=== PATIENT | male | born 1955 | race Caucasian/White ===

== ENCOUNTER 2017-03-12 22:58 | Inpatient (IN) | payer OTHER, MEDICARE ==
[2017-03-13] MEDS ORDERED: INSULIN REGULAR 100 UNIT in SODIUM CHLORIDE 0.9% 100 ML IV ONE (00:24)
[2017-03-13 00:25] LABS: Glucose,Whole Blood 488 mg/dL (75-99)
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
[2017-03-13] MEDS: SODIUM CHLORIDE 0.9% 1,000 ML IV SCH ×2 (01:01→10:46)
[2017-03-13 01:17] LABS: Potassium 5.1 mmol/L (3.5-5.1)
[2017-03-13 02:18] LABS: Glucose,Whole Blood 481 mg/dL (75-99)
[2017-03-13] MEDS ORDERED: ONDANSETRON 4 MG/2 ML VIAL IVP STA ×2 (02:36→03:17)
[2017-03-13 03:12] VITALS: BMI 19.8
[2017-03-13 03:35] LABS: Glucose,Whole Blood 440 mg/dL (75-99)
[2017-03-13 04:00] LABS: Magnesium 1.7 mg/dL (1.6-2.3); Phosphorus 4.3 mg/dL (2.5-4.5); Potassium 4.6 mmol/L (3.5-5.1)
[2017-03-13 04:34] LABS: Glucose,Whole Blood 381 mg/dL (75-99)
[2017-03-13 05:29] LABS: Glucose,Whole Blood 317 mg/dL (75-99)
[2017-03-13 06:11] LABS: Glucose,Whole Blood 287 mg/dL (75-99)
[2017-03-13 06:20] LABS: Anisocytosis Slight; Basophils % (A) 0 %; Eosinophils % (A) 0 %; HCT 45.1 % (39.0-53.0); HGB 12.8 gm/dL (13.0-17.5); Hypochromasia Marked; Lymphocytes # (A) 0.4 k/uL (1.0-4.8); Lymphocytes % (A) 5 %; MCH 27.3 pg (25.0-35.0); MCHC 28.4 g/dL (31.0-37.0); MCV 95.8 fL (80.0-100.0); Mean Platelet Volume 9.1; Monocytes # (A) 0.5 k/uL (0-1.0); Monocytes % (A) 6 %; Neutrophils % (A) 89 %; Platelet Count 147 k/uL (150-450); RBC 4.71 m/uL (4.30-5.90); RDW 16.1 % (11.5-15.5)
[2017-03-13] MEDS ORDERED: NITROGLYCERIN SL TABS 0.4 MG TAB SUBLINGUAL PRN (06:39)
[2017-03-13 07:20] LABS: Glucose,Whole Blood 271 mg/dL (75-99)
[2017-03-13 08:17] LABS: Glucose,Whole Blood 198 mg/dL (75-99)
[2017-03-13] MEDS: D5-0.45% NACL WITH KCL 20MEQ/L 1,000 ML IV SCH ×2 (08:38→15:39)
[2017-03-13] MEDS: CLOPIDOGREL 75 MG TAB PO SCH (08:40)
[2017-03-13] MEDS: METOPROLOL TARTRATE 25 MG TAB PO SCH (08:40)
[2017-03-13] MEDS: ASPIRIN 81 MG PO SCH (08:40)
[2017-03-13] MEDS: TACROLIMUS 1 MG CAP PO SCH ×2 (08:40→17:44)
--- NOTE | 2017-03-13 08:44 | XR ---
EXAMINATION TYPE: XR chest 1V portable DATE OF EXAM: 03/13/2017 COMPARISON: 03/12/2017 HISTORY: Difficulty in breathing TECHNIQUE: Single frontal view of the chest is obtained. FINDINGS: Left basilar linear consolidation noted. Chronic rib deformities are seen on the left. No pneumothorax or overt failure. No pleural effusion. IMPRESSION: Linear left basilar atelectasis noted. Infiltrate felt less likely correlate clinically.
[2017-03-13 08:58] LABS: Glucose,Whole Blood 177 mg/dL (75-99)
[2017-03-13] MEDS ORDERED: MYCOPHENOLATE SODIUM DR 180 MG TABLET.DR PO SCH (09:00)
[2017-03-13 09:08] LABS: Albumin 3.6 g/dL (3.5-5.0); Calcium 8.9 mg/dL (8.4-10.2); Phosphorus 3.1 mg/dL (2.5-4.5); Potassium 3.9 mmol/L (3.5-5.1); Total Bilirubin 0.4 mg/dL (0.2-1.3); Total Protein 5.5 g/dL (6.3-8.2)
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
[2017-03-13] MEDS: MYCOPHENOLATE SODIUM DR 180 MG TABLET.DR PO SCH ×2 (09:49→19:54)
[2017-03-13 10:09] LABS: Glucose,Whole Blood 132 mg/dL (75-99)
[2017-03-13] MEDS: cefTRIAXone IN SWFI 1,000 MG/10 ML SYRINGE IVP SCH (10:47)
[2017-03-13 11:12] LABS: Glucose,Whole Blood 103 mg/dL (75-99)
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
[2017-03-13 12:20] LABS: Glucose,Whole Blood 94 mg/dL (75-99)
[2017-03-13 12:37] LABS: Albumin 3.2 g/dL (3.5-5.0); Calcium 8.6 mg/dL (8.4-10.2); Potassium 3.9 mmol/L (3.5-5.1); Total Bilirubin 0.4 mg/dL (0.2-1.3); Total Protein 5.3 g/dL (6.3-8.2)
[2017-03-13 12:53] LABS: Glucose,Whole Blood 88 mg/dL (75-99)
[2017-03-13] MEDS: OSELTAMIVIR 75 MG CAP PO SCH ×2 (13:11→19:55)
[2017-03-13] MEDS: LEVOTHYROXINE 50 MCG TAB PO SCH (13:11)
[2017-03-13 13:14] LABS: Glucose,Whole Blood 107 mg/dL (75-99)
[2017-03-13 14:05] LABS: Glucose,Whole Blood 146 mg/dL (75-99)
[2017-03-13 15:17] LABS: Glucose,Whole Blood 180 mg/dL (75-99)
[2017-03-13 16:08] LABS: Glucose,Whole Blood 204 mg/dL (75-99)
[2017-03-13 16:37] LABS: Albumin 3.1 g/dL (3.5-5.0); Calcium 8.5 mg/dL (8.4-10.2); Potassium 4.5 mmol/L (3.5-5.1); Total Bilirubin 0.5 mg/dL (0.2-1.3); Total Protein 5.3 g/dL (6.3-8.2)
[2017-03-13 17:31] LABS: Glucose,Whole Blood 194 mg/dL (75-99)
[2017-03-13] MEDS: INSULIN ASPART 100 UNIT/ML 1 ML 10 ML VIAL SQ SCH ×3 (17:43→21:31)
[2017-03-13 17:44] LABS: Hemoglobin A1C 9.9 % (4.0-6.0)
--- NOTE | 2017-03-13 20:34 | HP ---
HISTORY AND PHYSICAL DATE OF ADMISSION: 03/13/2017. CHIEF COMPLAINTS: Nausea, vomiting, diarrhea and glucose of 767. HISTORY OF PRESENT ILLNESS: This 62-year-old gentleman with a past medical history of CVA, diabetes, hemodialyses, history of renal transplantation, history of hypertension, hyperlipidemia, history of myocardial infarction, history of anxiety, depression, being followed by Dr. Quispe in the outpatient setting was having nausea, vomiting, diarrhea for the past several days. The patient apparently was not taking insulin also and the blood sugar went up and the patient presented to [facility] with features of diabetic ketoacidosis. Blood sugar is elevated to 767, anion gap is 26. The patient subsequently referred to [facility] for further evaluation and treatment. There is no history of fever, rigors, no headache, loss of consciousness or seizures. The influenza A was positive from [place], creatinine was found to be 2.33. Dr. Villalobos and Dr. Cast are following the patient closely. The patient is starting on some IV insulin drip for DKA protocol. PAST MEDICAL HISTORY: History of chronic renal failure, history of hemodialysis, history of renal transplant, hyperlipidemia, history of diabetes type 2, history of CAD stent, history of depression. MEDICATIONS: Prior to admission: Home medications are: 1. Prograf 3 mg p.o. b.i.d. 2. Zoloft 100 mg q.h.s. 3. Prilosec 20 mg a.c. b.i.d. 4. Nitrostat 0.2 mg sublingual p.r.n. 5. 720 mg p.o. b.i.d. 6. Synthroid 50 mcg daily. 7. Levemir 20 units subcu b.i.d. 8. NovoLog 18 units subcu with breakfast and 3-4 units a.c. b.i.d. 9. Plavix 75 mg. 10.Lipitor 80 mg daily. 11.Aspirin 81 mg daily. ALLERGIES: None. FAMILY HISTORY: History of myocardial infarction and depression in the family. SOCIAL HISTORY: History of smoking. No history of alcohol intake. REVIEW OF SYSTEMS: ENT: No diminished vision. No diminished hearing. CARDIOVASCULAR: No angina or palpitations. RESPIRATORY: as mentioned earlier. GI no nausea. no dysuria. Central nervous system: As mentioned earlier. Allergy/Immunology: No asthma or hayfever. Musculoskeletal: As mentioned earlier. Hematology/Oncology: No history of anemia. Endocrine: Diabetes. Constitutional : As mentioned earlier. Dermatology: Negative. Rheumatology: Negative. Psychiatric : As mentioned earlier. PHYSICAL EXAMINATION: The patient is alert and oriented x3. Pulse 79, blood pressure 151/80, respiration 18, temperature 98.5, pulse ox 97% on room air. HEENT: Conjunctivae normal. NECK: No jugular venous distention. CARDIOVASCULAR : S1, S2 muffled. Respiratory: Breath sounds diminished in the bases. Scattered rhonchi and crackles. ABDOMEN: Soft, nontender. No mass palpable. Legs: No edema. No swelling. Central nervous system: Higher functions as mentioned earlier. Moves all four extremities. No focal deficits. Lymphatics: No lymph nodes palpable in the neck, axillae or groin. Skin no ulcer, rash or bleeding. LABS: WBC 9, hemoglobin 12.8, sodium 135, creatinine is 2.33. ASSESSMENT: 1. Acute diabetic ketoacidosis. 2. Acute nausea, vomiting, diarrhea, acute influenza A. 3. Acute on chronic renal failure with acute allograft dysfunction secondary to severe intravascular pleural effusion. 4. Chronic kidney disease stage 3. 5. History of renal allograft for diabetic nephropathy. 6. History of cerebrovascular accident/transient ischemic attack. 7. Gastroesophageal reflux disease. 8. Hypertension. 9. Hyperlipidemia. 10.History of coronary artery disease stent. 11.History of depression. 12.History of nicotine dependence continued ongoing. RECOMMENDATIONS AND DISCUSSION: This 62-year-old gentleman who presented with multiple complex medical issues. We will monitor the patient closely. Continue the current medications, continue symptomatic treatment. Otherwise, at this time, I recommend continue with DKA protocol, IV fluids cautiously. Otherwise repeat labs. Resume the home medications. Psychiatric evaluation. Resume the home medications and guarded prognosis because of multiple complex medical issues. Further recommendations to follow. MMODL / IJN: [id number] / YUNG
[2017-03-13 20:52] LABS: Glucose,Whole Blood 139 mg/dL (75-99)
[2017-03-13] MEDS ORDERED: ATORVASTATIN 80 MG TAB PO SCH (21:00)
[2017-03-13] MEDS ORDERED: SERTRALINE 100 MG TAB PO SCH (21:00)
[2017-03-13] MEDS: INSULIN DETEMIR 100 UNIT/ML 10 ML VIAL SQ SCH (21:31)
[2017-03-13 21:56] LABS: Appearance,Urine Turbid (Clear); Bacteria,Urine Moderate /hpf; Bilirubin,Urine Negative (Negative); Blood,Urine Moderate (Negative); Color,Urine Yellow; Glucose,Urine (UA) 4+ (Negative); Ketones,Urine Trace (Negative); Leukocyte Esterase,Urine Large (Negative); Nitrite,Urine Negative (Negative); Protein,Urine 1+ (Negative); Specific Gravity,Urine 1.011 (1.001-1.035); Urobilinogen,Urine <2.0 mg/dL (<2.0); WBC,Urine >182 /hpf (0-5)
[2017-03-13 22:14] LABS: Albumin 3.3 g/dL (3.5-5.0); Calcium 8.7 mg/dL (8.4-10.2); Potassium 4.1 mmol/L (3.5-5.1); Total Bilirubin 0.4 mg/dL (0.2-1.3); Total Protein 5.4 g/dL (6.3-8.2)
[2017-03-14 03:43] LABS: Glucose,Whole Blood 115 mg/dL (75-99)
[2017-03-14 06:12] LABS: Glucose,Whole Blood 68 mg/dL (75-99)
[2017-03-14 06:18] LABS: Anisocytosis Slight; Basophils % (A) 0 %; Eosinophils % (A) 0 %; HCT 42.8 % (39.0-53.0); HGB 12.9 gm/dL (13.0-17.5); Hypochromasia Moderate; Lymphocytes # (A) 0.6 k/uL (1.0-4.8); Lymphocytes % (A) 7 %; MCH 27.9 pg (25.0-35.0); MCHC 30.2 g/dL (31.0-37.0); MCV 92.3 fL (80.0-100.0); Mean Platelet Volume 8.7; Monocytes # (A) 0.5 k/uL (0-1.0); Monocytes % (A) 5 %; Neutrophils # (A) 7.9 k/uL (1.3-7.7); Neutrophils % (A) 86 %; Platelet Count 159 k/uL (150-450); RBC 4.64 m/uL (4.30-5.90); RDW 16.2 % (11.5-15.5); WBC 9.1 k/uL (3.8-10.6)
[2017-03-14 06:27] LABS: Glucose,Whole Blood 69 mg/dL (75-99)
[2017-03-14] MEDS: TACROLIMUS 1 MG CAP PO SCH (06:32)
[2017-03-14] MEDS: LEVOTHYROXINE 50 MCG TAB PO SCH (06:32)
[2017-03-14 06:34] LABS: Calcium 8.7 mg/dL (8.4-10.2); Magnesium 1.5 mg/dL (1.6-2.3); Phosphorus 2.6 mg/dL (2.5-4.5); Potassium 3.8 mmol/L (3.5-5.1)
[2017-03-14] MEDS: INSULIN ASPART 100 UNIT/ML 1 ML 10 ML VIAL SQ SCH ×4 (06:35→15:20)
[2017-03-14 06:56] LABS: Glucose,Whole Blood 98 mg/dL (75-99)
[2017-03-14] MEDS ORDERED: PANTOPRAZOLE 40 MG TABLET PO SCH (07:30)
[2017-03-14] MEDS ORDERED: INSULIN ASPART 100 UNIT/ML 1 ML 10 ML VIAL SQ SCH ×2 (07:30→12:30)
[2017-03-14] MEDS: cefTRIAXone IN SWFI 1,000 MG/10 ML SYRINGE IVP SCH (08:44)
--- NOTE | 2017-03-14 08:44 | P.PN ---
Subjective Patient is seen in follow-up for acute kidney injury on chronic kidney disease. Patient has chronic kidney disease stage IIIB with creatinine near 2.3 in December 2016 done as an outpatient. Creatinine this admission was 2.9 and is down to 2.2 today. Patient presented with blood sugars of greater than 700 and was treated with DKA protocol. He is off insulin drip. He's on a full liquid diet now. Does admit to some vomiting and loose stools. Denies chest pain or shortness of breath. Admits to good urine output. He is noted to be influenza A virus positive. Patient received a donor renal allograft in November 2010 as injury and hospital and is currently maintained on Prograf as well as Myfortic. Vital signs are stable. General: The patient appeared well nourished and normally developed. HEENT: Head exam is unremarkable. Neck is without jugular venous distension. LUNGS: Lungs are clear to auscultation and percussion. Breath sounds decreased. HEART: Rate and Rhythm are regular. First and second heart sounds normal. No murmurs, rubs or gallops. ABDOMEN: Abdominal exam reveals normal bowel sounds. Non-tender and non- distended. No evidence of peritonitis. EXTREMITITES: No clubbing, cyanosis, or edema. Objective - Vital Signs Vital signs: Vital Signs Temp 97.5 F L 03/14/17 04:00 Pulse 86 03/14/17 04:00 Resp 16 03/14/17 04:00 BP 165/95 03/14/17 04:00 Pulse Ox 94 L 03/14/17 04:00 Intake & Output 03/13/17 03/14/17 03/14/17 18:59 06:59 18:59 Intake Total 1148.923 250 Output Total 425 Balance 1148.923 -175 Weight 60.9 kg 62.1 kg Intake: Intake, IV Titration 788.923 Amount D5-0.45% NaCl with KCl 750 20Meq/l 1,000 ml @ 150 mls/hr IV .Q6H40M [facility] Rx# :[id number] Insulin Regular 100 unit 38.923 In Sodium Chloride 0.9% 100 ml @ 3 UNIT/HR 3.03 mls/hr IV .Q24H ONE Rx#: [id number] Oral 360 250 Output: Urine 425 Other: Voiding Method Urinal Urinal # Voids 1 # Bowel Movements 1 - Labs CBC & Chem 7: 03/14/17 05:24 03/14/17 05:24 Labs: Abnormal Lab Results - Last 24 Hours (Table) 03/13/17 03/13/17 03/13/17 Range/Units 07:59 07:59 08:57 Hgb (13.0-17.5) gm/dL MCHC (31.0-37.0) g/dL RDW (11.5-15.5) % Neutrophils # (1.3-7.7) k/uL Lymphocytes # (1.0-4.8) k/uL Sodium (137-145) mmol/L Carbon Dioxide (22-30) mmol/L BUN 61 H (9-20) mg/dL Creatinine 2.59 H (0.66-1.25) mg/dL Glucose 211 H (74-99) mg/dL POC Glucose (mg/dL) 177 H (75-99) mg/dL Hemoglobin A1c 9.9 H (4.0-6.0) % Magnesium (1.6-2.3) mg/dL Total Protein 5.5 L (6.3-8.2) g/dL Albumin (3.5-5.0) g/dL Urine Protein (Negative) Urine Glucose (UA) (Negative) Urine Ketones (Negative) Urine Blood (Negative) Ur Leukocyte Esterase (Negative) Urine WBC (0-5) /hpf Urine WBC Clumps (None) /hpf Urine Bacteria (None) /hpf 03/13/17 03/13/17 03/13/17 Range/Units 09:56 11:06 12:05 Hgb (13.0-17.5) gm/dL MCHC (31.0-37.0) g/dL RDW (11.5-15.5) % Neutrophils # (1.3-7.7) k/uL Lymphocytes # (1.0-4.8) k/uL Sodium (137-145) mmol/L Carbon Dioxide (22-30) mmol/L BUN 59 H (9-20) mg/dL Creatinine 2.37 H (0.66-1.25) mg/dL Glucose 100 H (74-99) mg/dL POC Glucose (mg/dL) 132 H 103 H (75-99) mg/dL Hemoglobin A1c (4.0-6.0) % Magnesium (1.6-2.3) mg/dL Total Protein 5.3 L (6.3-8.2) g/dL Albumin 3.2 L (3.5-5.0) g/dL Urine Protein (Negative) Urine Glucose (UA) (Negative) Urine Ketones (Negative) Urine Blood (Negative) Ur Leukocyte Esterase (Negative) Urine WBC (0-5) /hpf Urine WBC Clumps (None) /hpf Urine Bacteria (None) /hpf 03/13/17 03/13/17 03/13/17 Range/Units 13:12 13:53 15:04 Hgb (13.0-17.5) gm/dL MCHC (31.0-37.0) g/dL RDW (11.5-15.5) % Neutrophils # (1.3-7.7) k/uL Lymphocytes # (1.0-4.8) k/uL Sodium (137-145) mmol/L Carbon Dioxide (22-30) mmol/L BUN (9-20) mg/dL Creatinine (0.66-1.25) mg/dL Glucose (74-99) mg/dL POC Glucose (mg/dL) 107 H 146 H 180 H (75-99) mg/dL Hemoglobin A1c (4.0-6.0) % Magnesium (1.6-2.3) mg/dL Total Protein (6.3-8.2) g/dL Albumin (3.5-5.0) g/dL Urine Protein (Negative) Urine Glucose (UA) (Negative) Urine Ketones (Negative) Urine Blood (Negative) Ur Leukocyte Esterase (Negative) Urine WBC (0-5) /hpf Urine WBC Clumps (None) /hpf Urine Bacteria (None) /hpf 03/13/17 03/13/17 03/13/17 Range/Units 16:01 16:05 17:28 Hgb (13.0-17.5) gm/dL MCHC (31.0-37.0) g/dL RDW (11.5-15.5) % Neutrophils # (1.3-7.7) k/uL Lymphocytes # (1.0-4.8) k/uL Sodium 135 L (137-145) mmol/L Carbon Dioxide (22-30) mmol/L BUN 55 H (9-20) mg/dL Creatinine 2.33 H (0.66-1.25) mg/dL Glucose 203 H (74-99) mg/dL POC Glucose (mg/dL) 204 H 194 H (75-99) mg/dL Hemoglobin A1c (4.0-6.0) % Magnesium (1.6-2.3) mg/dL Total Protein 5.3 L (6.3-8.2) g/dL Albumin 3.1 L (3.5-5.0) g/dL Urine Protein (Negative) Urine Glucose (UA) (Negative) Urine Ketones (Negative) Urine Blood (Negative) Ur Leukocyte Esterase (Negative) Urine WBC (0-5) /hpf Urine WBC Clumps (None) /hpf Urine Bacteria (None) /hpf 03/13/17 03/13/17 03/13/17 Range/Units 20:30 20:40 21:32 Hgb (13.0-17.5) gm/dL MCHC (31.0-37.0) g/dL RDW (11.5-15.5) % Neutrophils # (1.3-7.7) k/uL Lymphocytes # (1.0-4.8) k/uL Sodium 136 L (137-145) mmol/L Carbon Dioxide 21 L (22-30) mmol/L BUN 51 H (9-20) mg/dL Creatinine 2.30 H (0.66-1.25) mg/dL Glucose 150 H (74-99) mg/dL POC Glucose (mg/dL) 139 H (75-99) mg/dL Hemoglobin A1c (4.0-6.0) % Magnesium (1.6-2.3) mg/dL Total Protein 5.4 L (6.3-8.2) g/dL Albumin 3.3 L (3.5-5.0) g/dL Urine Protein 1+ H (Negative) Urine Glucose (UA) 4+ H (Negative) Urine Ketones Trace H (Negative) Urine Blood Moderate H (Negative) Ur Leukocyte Esterase Large H (Negative) Urine WBC >182 H (0-5) /hpf Urine WBC Clumps Many H (None) /hpf Urine Bacteria Moderate H (None) /hpf 01/24/18 01/24/18 01/24/18 Range/Units 01:35 05:24 05:24 Hgb 12.9 L (13.0-17.5) gm/dL MCHC 30.2 L (31.0-37.0) g/dL RDW 16.2 H (11.5-15.5) % Neutrophils # 7.9 H (1.3-7.7) k/uL Lymphocytes # 0.6 L (1.0-4.8) k/uL Sodium (137-145) mmol/L Carbon Dioxide (22-30) mmol/L BUN 44 H (9-20) mg/dL Creatinine 2.20 H (0.66-1.25) mg/dL Glucose (74-99) mg/dL POC Glucose (mg/dL) 115 H (75-99) mg/dL Hemoglobin A1c (4.0-6.0) % Magnesium 1.5 L (1.6-2.3) mg/dL Total Protein (6.3-8.2) g/dL Albumin (3.5-5.0) g/dL Urine Protein (Negative) Urine Glucose (UA) (Negative) Urine Ketones (Negative) Urine Blood (Negative) Ur Leukocyte Esterase (Negative) Urine WBC (0-5) /hpf Urine WBC Clumps (None) /hpf Urine Bacteria (None) /hpf 03/14/17 03/14/17 Range/Units 06:07 06:25 Hgb (13.0-17.5) gm/dL MCHC (31.0-37.0) g/dL RDW (11.5-15.5) % Neutrophils # (1.3-7.7) k/uL Lymphocytes # (1.0-4.8) k/uL Sodium (137-145) mmol/L Carbon Dioxide (22-30) mmol/L BUN (9-20) mg/dL Creatinine (0.66-1.25) mg/dL Glucose (74-99) mg/dL POC Glucose (mg/dL) 68 L 69 L (75-99) mg/dL Hemoglobin A1c (4.0-6.0) % Magnesium (1.6-2.3) mg/dL Total Protein (6.3-8.2) g/dL Albumin (3.5-5.0) g/dL Urine Protein (Negative) Urine Glucose (UA) (Negative) Urine Ketones (Negative) Urine Blood (Negative) Ur Leukocyte Esterase (Negative) Urine WBC (0-5) /hpf Urine WBC Clumps (None) /hpf Urine Bacteria (None) /hpf Assessment and Plan Plan: Assessment: #1. Acute allograft dysfunction mostly prerenal due to severe intravascular volume depletion from DKA as well as vomiting and diarrhea. Improved with IV hydration. Creatinine was 2.9 on admission and is down to 2.2 today. #2. 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 #3. Status post donor renal allograft in November 2010 at [facility] due to diabetic kidney disease. #4. Diabetic ketoacidosis. #5. Hypertonic hyponatremia secondary to hyperglycemia. Improved. #6. Pyuria. Follow-up urine culture. Maintain on antibiotics. Plan: Start normal saline to be run at 50 mL an hour for maintenance fluids for now. Continue Prograf 2 mg twice daily and Myfortic 720 mg twice daily. Follow-up Prograf level. Check urine culture. Avoid nephrotoxic agents and hypotensive episodes. Repeat electrolytes in the morning. Encouraged oral intake.
[2017-03-14] MEDS: INSULIN DETEMIR 100 UNIT/ML 10 ML VIAL SQ SCH (08:45)
[2017-03-14] MEDS ORDERED: SODIUM CHLORIDE 0.9% 1,000 ML IV SCH (08:45)
[2017-03-14] MEDS: OSELTAMIVIR 75 MG CAP PO SCH (08:47)
[2017-03-14] MEDS: ASPIRIN 81 MG PO SCH (08:47)
[2017-03-14] MEDS: METOPROLOL TARTRATE 25 MG TAB PO SCH (08:47)
[2017-03-14] MEDS: CLOPIDOGREL 75 MG TAB PO SCH (08:47)
[2017-03-14] MEDS: MYCOPHENOLATE SODIUM DR 180 MG TABLET.DR PO SCH (08:47)
[2017-03-14 11:06] VITALS: BP 154/87; PULSE 73; RESP 16; TEMP 97.1
[2017-03-14 11:36] LABS: Glucose,Whole Blood 48 mg/dL (75-99)
[2017-03-14 11:36] LABS: Glucose,Whole Blood 53 mg/dL (75-99)
[2017-03-14 11:52] LABS: Glucose,Whole Blood 49 mg/dL (75-99)
[2017-03-14 12:27] LABS: Glucose,Whole Blood 88 mg/dL (75-99)
--- NOTE | 2017-03-14 15:09 | P.PN ---
<Bernice Bates - Last Filed: 03/14/17 15:02> Subjective Progress Note Date: 03/14/17 Principal diagnosis: Diabetic ketoacidosis suspect triggered by influenza A 62-year-old male patient, diabetic since the age of 31 maintained on Levemir insulin 20 units twice a day along with Humalog based on a scale also known to have a kidney transplantation, and allograft transplant that was done at [facility] in 2010 with subsequent chronic renal failure, who is maintained on immunosuppressive agents utilizing a combination of CellCept and Prograf. The patient got sick over the past few days. He checked positive for clue. He was having fever and chills and nausea vomiting and diarrhea and he got to the point where he was unable to take anything oral. As such he stopped taking his insulin he came into the hospital because ofhyperglycemia and subsequently was found to be in DKA. The patientinitial blood sugar of about 500.his initial anion gap was 25. His bicarb level was 13. He was started on insulin drip for blood sugar control and DKA treatment and he was resuscitated aggressively with IV fluids. He also had a component of an acute on top of chronic kidney failure with his creatinine was up to 2.9.note that the patient was resuscitated with IV fluids and insulin drip and currently is on D5 half-normal saline, his bicarb level is up to 25 and his anion gap is closing. He is tolerating some soft diet. No fever or chills.White cell count is not elevated. chest x-ray is showing some left basilar atelectasis and there is no evidence of any acute pneumonia.she is known to have coronary artery disease. The patient has undergone previous myocardial infarction. He has a preserved LV function and there is no history of congestion heart failure. He is a chronic smoker. The patient is seen again today 03/14/2017 in follow-up on the selective care unit. He is awake and alert in no acute distress. He is having issues with low blood sugar this morning. Lowest 48. Improved to 88. He denies any shortness of breath, cough or congestion. He is maintaining good O2 saturations in the mid 90s on room air. He's been afebrile. Hemodynamically stable. No leukocytosis. Hemoglobin 12.9. Potassium 3.8. Anion gap 11. Creatinine 2.20. He is had issues with diarrhea his C. difficile culture was negative. He remains on ceftriaxone and Tamiflu. Objective - Vital Signs Vital signs: Vital Signs Temp 97.1 F L 03/14/17 11:06 Pulse 73 03/14/17 14:46 Resp 16 03/14/17 14:46 BP 154/87 03/14/17 11:06 Pulse Ox 96 03/14/17 11:06 Intake & Output 03/13/17 03/14/17 03/14/17 18:59 06:59 18:59 Intake Total 1148.923 250 600 Output Total 425 Balance 1148.923 -175 600 Weight 60.9 kg 62.1 kg Intake: IV 600 .9 @ 75 600 Intake, IV Titration 788.923 Amount D5-0.45% NaCl with KCl 750 20Meq/l 1,000 ml @ 150 mls/hr IV .Q6H40M [facility] Rx# :[id number] Insulin Regular 100 unit 38.923 In Sodium Chloride 0.9% 100 ml @ 3 UNIT/HR 3.03 mls/hr IV .Q24H ONE Rx#: [id number] Oral 360 250 Output: Urine 425 Other: Voiding Method Urinal Urinal Urinal # Voids 1 # Bowel Movements 1 - Exam General appearance the patient is a calm and comfortable likely distress.Head exam was generally normal. There was no scleral icterus or corneal arcus. Mucous membranes were moist.Neck was supple and without jugular venous distension, thyromegaly, or carotid bruits. Carotids were easily palpable bilaterally. There was no adenopathy.Lungs were clear to auscultation and percussion, and with normal diaphragmatic excursion. No wheezes or rales were noted. Cardiac exam revealed the PMI to be normally situated and sized. The rhythm was regular and no extrasystoles were noted during several minutes of auscultation. The first and second heart sounds were normal and physiologic splitting of the second heart sound was noted. There were no murmurs, rubs, clicks, or gallops. Abdominal exam revealed normal bowel sounds. The abdomen was soft, non-tender, and without masses, organomegaly, or appreciable enlargement of the abdominal aorta.extremities reveal a left upper extremity functioning AV fistula. No cyanosis or clubbing at this point.Examination of the skin revealed no evidence of significant rashes, suspicious appearing nevi or other concerning lesions. Neurologically the patient is awake and alert and there is no focal neurological deficit at this point. - Labs CBC & Chem 7: 03/14/17 05:24 03/14/17 05:24 Labs: Abnormal Lab Results - Last 24 Hours (Table) 03/13/17 03/13/17 03/13/17 Range/Units 07:59 15:04 16:01 Hgb (13.0-17.5) gm/dL MCHC (31.0-37.0) g/dL RDW (11.5-15.5) % Neutrophils # (1.3-7.7) k/uL Lymphocytes # (1.0-4.8) k/uL Sodium 135 L (137-145) mmol/L Carbon Dioxide (22-30) mmol/L BUN 55 H (9-20) mg/dL Creatinine 2.33 H (0.66-1.25) mg/dL Glucose 203 H (74-99) mg/dL POC Glucose (mg/dL) 180 H (75-99) mg/dL Hemoglobin A1c 9.9 H (4.0-6.0) % Magnesium (1.6-2.3) mg/dL Total Protein 5.3 L (6.3-8.2) g/dL Albumin 3.1 L (3.5-5.0) g/dL Urine Protein (Negative) Urine Glucose (UA) (Negative) Urine Ketones (Negative) Urine Blood (Negative) Ur Leukocyte Esterase (Negative) Urine WBC (0-5) /hpf Urine WBC Clumps (None) /hpf Urine Bacteria (None) /hpf 03/13/17 03/13/17 03/13/17 Range/Units 16:05 17:28 20:30 Hgb (13.0-17.5) gm/dL MCHC (31.0-37.0) g/dL RDW (11.5-15.5) % Neutrophils # (1.3-7.7) k/uL Lymphocytes # (1.0-4.8) k/uL Sodium (137-145) mmol/L Carbon Dioxide (22-30) mmol/L BUN (9-20) mg/dL Creatinine (0.66-1.25) mg/dL Glucose (74-99) mg/dL POC Glucose (mg/dL) 204 H 194 H (75-99) mg/dL Hemoglobin A1c (4.0-6.0) % Magnesium (1.6-2.3) mg/dL Total Protein (6.3-8.2) g/dL Albumin (3.5-5.0) g/dL Urine Protein 1+ H (Negative) Urine Glucose (UA) 4+ H (Negative) Urine Ketones Trace H (Negative) Urine Blood Moderate H (Negative) Ur Leukocyte Esterase Large H (Negative) Urine WBC >182 H (0-5) /hpf Urine WBC Clumps Many H (None) /hpf Urine Bacteria Moderate H (None) /hpf 03/13/17 03/13/17 03/14/17 Range/Units 20:40 21:32 01:35 Hgb (13.0-17.5) gm/dL MCHC (31.0-37.0) g/dL RDW (11.5-15.5) % Neutrophils # (1.3-7.7) k/uL Lymphocytes # (1.0-4.8) k/uL Sodium 136 L (137-145) mmol/L Carbon Dioxide 21 L (22-30) mmol/L BUN 51 H (9-20) mg/dL Creatinine 2.30 H (0.66-1.25) mg/dL Glucose 150 H (74-99) mg/dL POC Glucose (mg/dL) 139 H 115 H (75-99) mg/dL Hemoglobin A1c (4.0-6.0) % Magnesium (1.6-2.3) mg/dL Total Protein 5.4 L (6.3-8.2) g/dL Albumin 3.3 L (3.5-5.0) g/dL Urine Protein (Negative) Urine Glucose (UA) (Negative) Urine Ketones (Negative) Urine Blood (Negative) Ur Leukocyte Esterase (Negative) Urine WBC (0-5) /hpf Urine WBC Clumps (None) /hpf Urine Bacteria (None) /hpf 03/14/17 03/14/17 03/14/17 Range/Units 05:24 05:24 06:07 Hgb 12.9 L (13.0-17.5) gm/dL MCHC 30.2 L (31.0-37.0) g/dL RDW 16.2 H (11.5-15.5) % Neutrophils # 7.9 H (1.3-7.7) k/uL Lymphocytes # 0.6 L (1.0-4.8) k/uL Sodium (137-145) mmol/L Carbon Dioxide (22-30) mmol/L BUN 44 H (9-20) mg/dL Creatinine 2.20 H (0.66-1.25) mg/dL Glucose (74-99) mg/dL POC Glucose (mg/dL) 68 L (75-99) mg/dL Hemoglobin A1c (4.0-6.0) % Magnesium 1.5 L (1.6-2.3) mg/dL Total Protein (6.3-8.2) g/dL Albumin (3.5-5.0) g/dL Urine Protein (Negative) Urine Glucose (UA) (Negative) Urine Ketones (Negative) Urine Blood (Negative) Ur Leukocyte Esterase (Negative) Urine WBC (0-5) /hpf Urine WBC Clumps (None) /hpf Urine Bacteria (None) /hpf 03/14/17 03/14/17 03/14/17 Range/Units 06:25 11:33 11:34 Hgb (13.0-17.5) gm/dL MCHC (31.0-37.0) g/dL RDW (11.5-15.5) % Neutrophils # (1.3-7.7) k/uL Lymphocytes # (1.0-4.8) k/uL Sodium (137-145) mmol/L Carbon Dioxide (22-30) mmol/L BUN (9-20) mg/dL Creatinine (0.66-1.25) mg/dL Glucose (74-99) mg/dL POC Glucose (mg/dL) 69 L 53 L 48 L (75-99) mg/dL Hemoglobin A1c (4.0-6.0) % Magnesium (1.6-2.3) mg/dL Total Protein (6.3-8.2) g/dL Albumin (3.5-5.0) g/dL Urine Protein (Negative) Urine Glucose (UA) (Negative) Urine Ketones (Negative) Urine Blood (Negative) Ur Leukocyte Esterase (Negative) Urine WBC (0-5) /hpf Urine WBC Clumps (None) /hpf Urine Bacteria (None) /hpf 03/14/17 Range/Units 11:49 Hgb (13.0-17.5) gm/dL MCHC (31.0-37.0) g/dL RDW (11.5-15.5) % Neutrophils # (1.3-7.7) k/uL Lymphocytes # (1.0-4.8) k/uL Sodium (137-145) mmol/L Carbon Dioxide (22-30) mmol/L BUN (9-20) mg/dL Creatinine (0.66-1.25) mg/dL Glucose (74-99) mg/dL POC Glucose (mg/dL) 49 L (75-99) mg/dL Hemoglobin A1c (4.0-6.0) % Magnesium (1.6-2.3) mg/dL Total Protein (6.3-8.2) g/dL Albumin (3.5-5.0) g/dL Urine Protein (Negative) Urine Glucose (UA) (Negative) Urine Ketones (Negative) Urine Blood (Negative) Ur Leukocyte Esterase (Negative) Urine WBC (0-5) /hpf Urine WBC Clumps (None) /hpf Urine Bacteria (None) /hpf Assessment and Plan Assessment: assessment 1 DKA, exact diagnostic circumstances and clinical presentation mentioned above. The patient was resuscitated IV fluids and treated with an insulin drip. Most recent x-rays shows improvement in the blood sugar control and improvement and closure of the anion gap. Clinically is doing better.the exact decompensating fact there was an acute influenza taken bronchitis and influenza syndrome. The patient was checked and positive for influenza. Chest x-ray is free of any acute pulmonary infiltration. 2 acute on top of chronic kidney failure. 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 Villalobos. He remains stable from the pulmonary and critical care standpoint. He'll complete his course of Tamiflu. Nephrology is on the case. We'll see the patient on as-needed basis. I, the cosigning physician, performed a history & physical examination of the patient. Lungs sounds are clear. Maintaining good O2 saturations in the 90s on room air. I discussed the assessment and plan of care with my nurse practitioner, Bernice Bates. I attest to the above note as dictated by her. <Nena Villalobos - Last Filed: 03/14/17 18:11> Objective - Vital Signs Vital signs: Vital Signs Temp 97.1 F L 03/14/17 11:06 Pulse 73 03/14/17 14:46 Resp 16 03/14/17 14:46 BP 154/87 03/14/17 11:06 Pulse Ox 96 03/14/17 11:06 Intake & Output 03/13/17 03/14/17 03/14/17 18:59 06:59 18:59 Intake Total 1148.923 250 600 Output Total 425 Balance 1148.923 -175 600 Weight 60.9 kg 62.1 kg Intake: IV 600 .9 @ 75 600 Intake, IV Titration 788.923 Amount D5-0.45% NaCl with KCl 750 20Meq/l 1,000 ml @ 150 mls/hr IV .Q6H40M [facility] Rx# :[id number] Insulin Regular 100 unit 38.923 In Sodium Chloride 0.9% 100 ml @ 3 UNIT/HR 3.03 mls/hr IV .Q24H ONE Rx#: [id number] Oral 360 250 Output: Urine 425 Other: Voiding Method Urinal Urinal Urinal # Voids 1 # Bowel Movements 1 - Labs CBC & Chem 7: 03/14/17 05:24 03/14/17 05:24 Labs: Abnormal Lab Results - Last 24 Hours (Table) 03/13/17 03/13/17 03/13/17 Range/Units 07:59 20:30 20:40 Hgb (13.0-17.5) gm/dL MCHC (31.0-37.0) g/dL RDW (11.5-15.5) % Neutrophils # (1.3-7.7) k/uL Lymphocytes # (1.0-4.8) k/uL Sodium (137-145) mmol/L Carbon Dioxide (22-30) mmol/L BUN (9-20) mg/dL Creatinine (0.66-1.25) mg/dL Glucose (74-99) mg/dL POC Glucose (mg/dL) 139 H (75-99) mg/dL Hemoglobin A1c 9.9 H (4.0-6.0) % Magnesium (1.6-2.3) mg/dL Total Protein (6.3-8.2) g/dL Albumin (3.5-5.0) g/dL Urine Protein 1+ H (Negative) Urine Glucose (UA) 4+ H (Negative) Urine Ketones Trace H (Negative) Urine Blood Moderate H (Negative) Ur Leukocyte Esterase Large H (Negative) Urine WBC >182 H (0-5) /hpf Urine WBC Clumps Many H (None) /hpf Urine Bacteria Moderate H (None) /hpf 03/13/17 03/14/17 03/14/17 Range/Units 21:32 01:35 05:24 Hgb (13.0-17.5) gm/dL MCHC (31.0-37.0) g/dL RDW (11.5-15.5) % Neutrophils # (1.3-7.7) k/uL Lymphocytes # (1.0-4.8) k/uL Sodium 136 L (137-145) mmol/L Carbon Dioxide 21 L (22-30) mmol/L BUN 51 H 44 H (9-20) mg/dL Creatinine 2.30 H 2.20 H (0.66-1.25) mg/dL Glucose 150 H (74-99) mg/dL POC Glucose (mg/dL) 115 H (75-99) mg/dL Hemoglobin A1c (4.0-6.0) % Magnesium 1.5 L (1.6-2.3) mg/dL Total Protein 5.4 L (6.3-8.2) g/dL Albumin 3.3 L (3.5-5.0) g/dL Urine Protein (Negative) Urine Glucose (UA) (Negative) Urine Ketones (Negative) Urine Blood (Negative) Ur Leukocyte Esterase (Negative) Urine WBC (0-5) /hpf Urine WBC Clumps (None) /hpf Urine Bacteria (None) /hpf 03/14/17 03/14/17 03/14/17 Range/Units 05:24 06:07 06:25 Hgb 12.9 L (13.0-17.5) gm/dL MCHC 30.2 L (31.0-37.0) g/dL RDW 16.2 H (11.5-15.5) % Neutrophils # 7.9 H (1.3-7.7) k/uL Lymphocytes # 0.6 L (1.0-4.8) k/uL Sodium (137-145) mmol/L Carbon Dioxide (22-30) mmol/L BUN (9-20) mg/dL Creatinine (0.66-1.25) mg/dL Glucose (74-99) mg/dL POC Glucose (mg/dL) 68 L 69 L (75-99) mg/dL Hemoglobin A1c (4.0-6.0) % Magnesium (1.6-2.3) mg/dL Total Protein (6.3-8.2) g/dL Albumin (3.5-5.0) g/dL Urine Protein (Negative) Urine Glucose (UA) (Negative) Urine Ketones (Negative) Urine Blood (Negative) Ur Leukocyte Esterase (Negative) Urine WBC (0-5) /hpf Urine WBC Clumps (None) /hpf Urine Bacteria (None) /hpf 03/14/17 03/14/17 03/14/17 Range/Units 11:33 11:34 11:49 Hgb (13.0-17.5) gm/dL MCHC (31.0-37.0) g/dL RDW (11.5-15.5) % Neutrophils # (1.3-7.7) k/uL Lymphocytes # (1.0-4.8) k/uL Sodium (137-145) mmol/L Carbon Dioxide (22-30) mmol/L BUN (9-20) mg/dL Creatinine (0.66-1.25) mg/dL Glucose (74-99) mg/dL POC Glucose (mg/dL) 53 L 48 L 49 L (75-99) mg/dL Hemoglobin A1c (4.0-6.0) % Magnesium (1.6-2.3) mg/dL Total Protein (6.3-8.2) g/dL Albumin (3.5-5.0) g/dL Urine Protein (Negative) Urine Glucose (UA) (Negative) Urine Ketones (Negative) Urine Blood (Negative) Ur Leukocyte Esterase (Negative) Urine WBC (0-5) /hpf Urine WBC Clumps (None) /hpf Urine Bacteria (None) /hpf Assessment and Plan Assessment: Joint evaluation with the nurse practitioner. Computed Tamiflu. Pulmonary and critical care services we'll sign off.
--- NOTE | 2017-03-15 08:30 | DS ---
DISCHARGE SUMMARY FINAL DIAGNOSES: 1. Acute diabetic ketoacidosis. 2. Acute nausea, vomiting, diarrhea, acute influenza A. 3. Acute on chronic renal failure with acute allograft dysfunction secondary to severe intravascular volume depletion. 4. Chronic kidney disease stage 3. 5. History of renal allograft for diabetic nephropathy. 6. History of cerebrovascular accident , transient ischemic attack. 7. Gastroesophageal reflux disease. 8. Hypertension. 9. Hyperlipidemia. 10.History of coronary artery disease, stent. 11.History of depression. 12.History of nicotine dependence ongoing, continuing. DISCHARGE DISPOSITION: The patient will be discharged in stable condition with guarded prognosis. HISTORY OF PRESENT ILLNESS: This 62-year-old gentleman with the past medical history of multiple medical problems was admitted with features of DKA and as well as influenza A, referred from [facility]. Patient treated with insulin drip and as well as Tamiflu. Patient improved significantly. The patient will be discharged in stable condition with guarded prognosis. The patient is extremely keen on going home. The patient has been eat unless being discharged. On exam, vital signs are stable. CARDIOVASCULAR: S1 and S2 muffled. ABDOMEN: Soft. NERVOUS SYSTEM: No focal deficits. DISCHARGE 1. Aspirin 81 mg p.o. daily. 2. Lipitor 80 mg q.h.s. 3. Ceftin 500 mg p.o. b.i.d. for 5 days. 4. Plavix 75 mg p.o. daily. 5. NovoLog FlexPen as before. 6. NovoLog 8 units a.c. breakfast. 7. Levemir 20 units subcu b.i.d. 8. Synthroid 50 mcg p.o. daily. 9. Lopressor 25 mg p.o. daily. 10.Mycophenolate 720 mg p.o. b.i.d. 11.Nitro 0.4 sublingual p.r.n. 12.Prilosec 20 mg b.i.d. 13.Tamiflu 75 mg p.o. b.i.d. for 7 more doses. 14.Zoloft 100 mg q.h.s. 15.Prograf 2 mg b.i.d. Follow with Dr. Cast as advised for continued follow up of renal functions. MMODL / IJN: [id number] / [facility]
== END 2017-03-14 15:44 | disposition home or self-care (01) | DRG 638 ==
LOC: EC 22:58 → 6SEL 03-13 00:18
PROVIDERS: ADMIT Hospitalist; ATTEND Hospitalist
DX: E10.10 Type 1 diabetes mellitus with ketoacidosis without coma (principal); N17.9 Acute kidney failure, unspecified; E10.21 Type 1 diabetes mellitus with diabetic nephropathy; N18.3 Chronic kidney disease, stage 3 (moderate); E87.1 Hypo-osmolality and hyponatremia; Z94.0 Kidney transplant status; E10.22 Type 1 diabetes mellitus with diabetic chronic kidney disease; E10.319 Type 1 diabetes mellitus with unspecified diabetic retinopathy without macular edema; E03.9 Hypothyroidism, unspecified; E78.5 Hyperlipidemia, unspecified; E86.0 Dehydration; F17.200 Nicotine dependence, unspecified, uncomplicated; H54.8 Legal blindness, as defined in USA; I25.10 Atherosclerotic heart disease of native coronary artery without angina pectoris; I25.2 Old myocardial infarction; J10.1 Influenza due to other identified influenza virus with other respiratory manifestations; J40 Bronchitis, not specified as acute or chronic; K21.9 Gastro-esophageal reflux disease without esophagitis; Z79.02 Long term (current) use of antithrombotics/antiplatelets; Z79.4 Long term (current) use of insulin; Z79.82 Long term (current) use of aspirin; Z79.899 Other long term (current) drug therapy; Z81.8 Family history of other mental and behavioral disorders; Z82.49 Family history of ischemic heart disease and other diseases of the circulatory system; Z86.73 Personal history of transient ischemic attack (TIA), and cerebral infarction without residual deficits; Z91.19 Patient's noncompliance with other medical treatment and regimen; Z95.5 Presence of coronary angioplasty implant and graft; Z99.2 Dependence on renal dialysis; I12.9 Hypertensive chronic kidney disease with stage 1 through stage 4 chronic kidney disease, or unspecified chronic kidney disease
CPT/HCPCS: 36415; 71045; 80048; 80051; 80053; 80197; 81001; 82565; 82947; 83036; 83735; 84100; 84520; 85025; 87324; 93005; 96374; 99291

== ENCOUNTER 2017-05-26 17:36 | Inpatient (IN) | payer OTHER, MEDICARE ==
[2017-05-26] MEDS ORDERED: SODIUM CHLORIDE 0.9% 1,000 ML IV STA ×2 (18:09→20:36)
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
[2017-05-26] MEDS ORDERED: ONDANSETRON 4 MG/2 ML VIAL IVP STA ×2 (18:59→21:36)
[2017-05-26 19:07] LABS: Basophils % (A) 0 %; Eosinophils # (A) 0.1 k/uL (0-0.7); Eosinophils % (A) 0 %; HCT 46.5 % (39.0-53.0); HGB 14.7 gm/dL (13.0-17.5); Lymphocytes # (A) 0.8 k/uL (1.0-4.8); Lymphocytes % (A) 6 %; MCH 27.9 pg (25.0-35.0); MCHC 31.7 g/dL (31.0-37.0); MCV 88.2 fL (80.0-100.0); Mean Platelet Volume 8.7; Monocytes # (A) 0.8 k/uL (0-1.0); Monocytes % (A) 7 %; Neutrophils # (A) 10.1 k/uL (1.3-7.7); Neutrophils % (A) 84 %; Platelet Count 248 k/uL (150-450); RBC 5.27 m/uL (4.30-5.90); RDW 13.8 % (11.5-15.5)
--- NOTE | 2017-05-26 19:10 | XR ---
EXAMINATION TYPE: XR KUB DATE OF EXAM: 05/26/2017 7:04 PM CLINICAL HISTORY: Right-sided pain and diarrhea for 2 years. TECHNIQUE: Two Upright KUB images of the abdomen are obtained. COMPARISON: Outside abdominal x-ray March 12, 2017. FINDINGS: Scattered gas is seen in non-distended small bowel loops. Few scattered air-fluid levels ar e seen. Gas is seen in non-distended colon and rectum. Suspect numerous small renal calculi bilateral ly. Lung bases are clear. No pneumoperitoneum is identified. Vascular calcification in the pelvis is again seen. [id number] axial joint space loss in both hips is redemonstrated. IMPRESSION: Overall nonspecific but favor nonobstructive bowel gas pattern. Extensive Bilateral nephrolithiasis i s suspected without significant interval change.
--- NOTE | 2017-05-26 19:12 | CT ---
EXAMINATION TYPE: CT brain wo con DATE OF EXAM: 05/26/2017 HISTORY: Fall with frontal head injury. Nausea and vomiting. CT DLP: 999.8 mGycm. Automated Exposure Control for Dose Reduction was Utilized. TECHNIQUE: CT scan of the head is performed without contrast. COMPARISON: CT brain November 14, 2013 FINDINGS: There is no acute intracranial hemorrhage or midline shift identified. There is diffuse v entricular and sulcal prominence consistent with diffuse age-related cerebral atrophy. There is low- attenuation in the periventricular white matter consistent with chronic small vessel ischemic change. Old areas of encephalomalacia bilateral occipital lobes near axial image 33 are redemonstrated. Opac ification sclerosis right mastoid air cells is redemonstrated. Visualized paranasal sinuses are clear . Visualized globes are intact. IMPRESSION: No acute intracranial hemorrhage or midline shift. There is mild diffuse age-related ce rebral atrophy and chronic small vessel ischemic change with old occipital lobe infarcts bilaterally redemonstrated. 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 No significant change from prior.
[2017-05-26 19:15] LABS: INR 1.1 (<1.2); Partial Thromboplastin Time 23.3 sec (22.0-30.0); Prothrombin Time 10.5 sec (9.0-12.0)
[2017-05-26 19:17] LABS: ALT 19 U/L (21-72); AST 16 U/L (17-59); Albumin 4.5 g/dL (3.5-5.0); Alkaline Phosphatase 159 U/L (38-126); Amylase 39 U/L (30-110); Anion Gap 19 mmol/L; Blood Urea Nitrogen 47 mg/dL (9-20); Calcium 10.9 mg/dL (8.4-10.2); Carbon Dioxide 25 mmol/L (22-30); Chloride 97 mmol/L (98-107); Glucose 114 mg/dL (74-99); Lipase 20 U/L (23-300); Potassium 4.8 mmol/L (3.5-5.1); Sodium 141 mmol/L (137-145); Total Bilirubin 0.9 mg/dL (0.2-1.3); Total Protein 7.1 g/dL (6.3-8.2)
[2017-05-26 19:54] LABS: Glucose,Whole Blood 116 mg/dL (75-99)
[2017-05-26 19:55] LABS: Troponin I 0.319 ng/mL (0.000-0.034)
--- NOTE | 2017-05-26 20:12 | XR ---
EXAMINATION TYPE: XR chest 2V DATE OF EXAM: 05/26/2017 COMPARISON: Prior chest x-ray March 13, 2017. HISTORY: Right-sided chest pain with vomiting. TECHNIQUE: Frontal and lateral views of the chest are obtained. FINDINGS: There is chronic parenchymal change without suspicious focal air space opacity, pleural ef fusion, or pneumothorax seen. The cardiac silhouette size is within normal limits. Multiple old left lateral rib fractures are redemonstrated. IMPRESSION: Chronic changes without acute pulmonary process.
--- NOTE | 2017-05-26 20:47 | US ---
EXAMINATION TYPE: US abdomen limited DATE OF EXAM: 05/26/2017 COMPARISON: CT abdomen and pelvis July 31, 2008 CLINICAL HISTORY: Pain. Vomiting for 3 days. RUQ pain. Kidney transplant 7 years ago EXAM MEASUREMENTS: Liver Length: 14.5 cm Gallbladder Wall: 0.2 cm CBD: 0.5 cm Right Kidney: 8.3 x 3.6 x 3.1 cm Pancreas: head obscured by overlying bowel content, duct = 0.3cm Liver: appears wnl Gallbladder: no evidence of stones Evidence for sonographic Mcclain's sign: no CBD: appears wnl Right Kidney: atrophic, echogenic, thin renal cortex Visualized portion of pancreas is unremarkable. Portions of head obscured by overlying bowel gas. Vis ualized liver is within normal limits. There are no shadowing mobile gallstones. Fold in gallbladder wall noted. [place] right kidney and shows marked increased cortical echogenicity. IMPRESSION: No gallstones or ultrasound evidence for acute cholecystitis.
[2017-05-26] MEDS ORDERED: NITROGLYCERIN SL TABS 0.4 MG TAB SUBLINGUAL PRN (20:49)
[2017-05-26] MEDS ORDERED: HEPARIN SODIUM,PORCINE 5,000 UNIT/ML 1 ML VIAL IV PRN (20:49)
[2017-05-26] MEDS ORDERED: MORPHINE ORAL SOLN 10 MG/5 ML CUP PO PRN (20:49)
[2017-05-26] MEDS ORDERED: HEPARIN SODIUM,PORCINE 5,000 UNIT/ML 1 ML VIAL IV ONE (20:49)
[2017-05-26] MEDS: HEPARIN SOD,PORK IN 0.45% NACL 25,000 UNIT in 0.45% NACL 1 500ML.BAG IV SCH (21:52)
[2017-05-26 22:26] LABS: Glucose,Whole Blood 163 mg/dL (75-99)
[2017-05-26] MEDS ORDERED: ONDANSETRON 4 MG/2 ML VIAL IVP PRN (22:56)
[2017-05-27] MEDS ORDERED: MYCOPHENOLATE MOFETIL 250 MG CAP PO SCH (00:15)
[2017-05-27 01:04] LABS: Creatine Kinase MB 2.3 ng/mL (0.0-2.4)
[2017-05-27 01:05] LABS: Troponin I 0.218 ng/mL (0.000-0.034)
[2017-05-27] MEDS ORDERED: PANTOPRAZOLE 40 MG/10 ML VIAL IVP STA (01:16)
[2017-05-27] MEDS ORDERED: ONDANSETRON 4 MG/2 ML VIAL IVP STA (01:16)
[2017-05-27] MEDS: METOPROLOL TARTRATE 25 MG TAB PO SCH ×3 (01:31→21:44)
[2017-05-27] MEDS: ATORVASTATIN 80 MG TAB PO SCH ×2 (01:31→21:42)
[2017-05-27] MEDS: TACROLIMUS 1 MG CAP PO SCH ×3 (01:31→23:39)
[2017-05-27 06:10] LABS: HCT 44.3 % (39.0-53.0); HGB 13.6 gm/dL (13.0-17.5); Hypochromasia Moderate; MCH 28.3 pg (25.0-35.0); MCHC 30.7 g/dL (31.0-37.0); MCV 92.3 fL (80.0-100.0); Mean Platelet Volume 8.3; Platelet Count 180 k/uL (150-450); RDW 13.7 % (11.5-15.5); WBC 13.7 k/uL (3.8-10.6)
[2017-05-27 06:40] LABS: Creatine Kinase MB 2.4 ng/mL (0.0-2.4)
[2017-05-27 06:44] LABS: Troponin I 0.154 ng/mL (0.000-0.034)
[2017-05-27 06:48] LABS: Calcium 9.4 mg/dL (8.4-10.2); Magnesium 1.6 mg/dL (1.6-2.3); Phosphorus 4.4 mg/dL (2.5-4.5); Potassium 5.7 mmol/L (3.5-5.1)
[2017-05-27 07:09] LABS: Appearance,Urine Turbid (Clear); Bacteria,Urine Moderate /hpf; Bilirubin,Urine Negative (Negative); Blood,Urine Small (Negative); Color,Urine Yellow; Glucose,Urine (UA) 4+ (Negative); Hyaline Casts,Urine 6 /lpf (0-2); Ketones,Urine 1+ (Negative); Leukocyte Esterase,Urine Large (Negative); Nitrite,Urine Negative (Negative); Protein,Urine 1+ (Negative); RBC,Urine 32 /hpf (0-5); Specific Gravity,Urine 1.011 (1.001-1.035); Squamous Epithelial Cell,Urine 1 /hpf (0-4); Urobilinogen,Urine <2.0 mg/dL (<2.0); WBC,Urine >182 /hpf (0-5)
[2017-05-27 07:49] LABS: Glucose,Whole Blood 367 mg/dL (75-99)
[2017-05-27] MEDS: INSULIN ASPART 100 UNIT/ML 1 ML 10 ML VIAL SQ SCH ×4 (07:49→21:38)
[2017-05-27] MEDS: LEVOTHYROXINE 50 MCG TAB PO SCH (07:49)
[2017-05-27] MEDS: MYCOPHENOLATE SODIUM DR 180 MG TABLET.DR PO SCH ×2 (07:50→21:43)
[2017-05-27] MEDS: CHOLECALCIFEROL 1,000 UNIT TAB PO SCH (07:53)
[2017-05-27] MEDS: INSULIN DETEMIR 100 UNIT/ML 10 ML VIAL SQ SCH ×2 (09:34→21:41)
[2017-05-27 11:59] LABS: Glucose,Whole Blood 328 mg/dL (75-99)
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
[2017-05-27] MEDS: ASPIRIN 325 MG TAB PO SCH (13:55)
[2017-05-27] MEDS: cefTRIAXone IN SWFI 1,000 MG/10 ML SYRINGE IVP SCH (14:26)
[2017-05-27] MEDS: MAGNESIUM SULFATE-D5W PMX 1 GM in DEXTROSE/WATER 1 100ML.BAG IVPB SCH ×2 (14:26→15:43)
[2017-05-27] MEDS: SODIUM CHLORIDE 0.9% 1,000 ML IV SCH (14:27)
--- NOTE | 2017-05-27 15:40 | CONS ---
CONSULTATION REASON FOR CONSULT: Renal transplant. HISTORY OF PRESENT ILLNESS: The patient is a 62-year-old male with a history of end-stage renal disease, is status post donor allograft at [facility] in November of 2010 for diabetic kidney disease. The patient is admitted to the hospital with complaints off nausea, decreased oral intake. He also had some chest pressure. The troponin was mildly elevated at 0.154. Serum creatinine was 2.9 mg/dL. It is now at 2.6. His baseline creatinine has been about 2.3 to 2.2 mg/dL, although previously in 2017 it was at 1.7. The patient has not been very compliant with his visits as outpatient. He states he has been taking his transplant medications regularly and they have also been regularly refilled as outpatient. The patient seems to have lost quite a bit of weight since he was last seen in the office. PAST MEDICAL HISTORY: Diabetes, chronic kidney disease, history of donor transplant in 2010 and coronary artery disease with myocardial infarction and coronary stents. Diabetic retinopathy, hyperlipidemia, chronic back pain, history of TIA. PAST SURGICAL HISTORY: Cardiac catheterization, coronary stent placement. donor kidney transplant at [facility] 2010, AV fistula left upper extremity. SOCIAL HISTORY: Positive for smoking. MEDICATIONS: Medications at home prior to admission included Zoloft, aspirin, Lipitor, Plavix , insulin, Synthroid, Prilosec, Lopressor Prograf, vitamin D3. ALLERGIES: None. REVIEW OF SYSTEMS: As per HPI. Other systems negative. PHYSICAL EXAMINATION: Patient is currently comfortable, awake. He is not in any acute distress. Blood pressure is 159/76, heart rate 85 per minute. He is afebrile. Examination of the heart: S1, S2. Examination lungs: Bilateral breath sounds are heard. Abdomen is soft, nontender. Examination lower extremity shows no evidence of edema. DIRECTOR PERIOPERATIVE exam shows patient moving all 4 extremities. He does have a lesion on the right side of his zoroastrian/forehead that seems chronic and scaly. LAB: Show sodium 137, potassium 5.7, chloride 103, CO2 is 15, creatinine 2.6, BUN 42 , blood sugar was elevated at 367. UA shows more than 182 WBCs, 1+ protein, 4+ glucose , blood, small. ASSESSMENT: 1. Acute kidney injury, prerenal, currently slightly improved from yesterday. The patient is nonoliguric. I will start IV fluids. He did receive 2 L in the ER. 2. Hyperkalemia associated with acute kidney injury and hyperglycemia. Will repeat electrolytes this evening. 3. Metabolic acidosis secondary to renal failure. Serum acetone was also positive. 4. Urine tract infection. Start Rocephin and send urine culture. 5. Status post donor renal transplant 2010 at [facility] with previous creatinine 1.7 in December and about 2.2 to 2.3 mg/dL in February of 2017, currently maintained on Prograf, Myfortic. We will check a tacrolimus level. 6. A generalized debility and weight loss. The patient will need workup including colonoscopy and EGD. PLAN: Continue IV fluids. Repeat electrolytes this evening. Control blood sugars. Start antibiotics. Check urine cultures and repeat labs in a.m. as well. Thank you for this consultation. We will continue to follow the patient with you during his hospitalization. MMODL / HERMANN: [id number] / YUNG
[2017-05-27 16:39] LABS: Glucose,Whole Blood 282 mg/dL (75-99)
[2017-05-27] MEDS: HEPARIN SOD,PORK IN 0.45% NACL 25,000 UNIT in 0.45% NACL 1 500ML.BAG IV SCH (16:54)
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
[2017-05-27 19:08] LABS: Potassium 4.4 mmol/L (3.5-5.1)
[2017-05-27 19:34] LABS: Hemoglobin A1C 9.7 % (4.0-6.0)
[2017-05-27] MEDS: SERTRALINE 100 MG TAB PO SCH (21:43)
[2017-05-27 21:50] LABS: Glucose,Whole Blood 130 mg/dL (75-99)
[2017-05-28 05:48] VITALS: RESP 16
[2017-05-28] MEDS: SODIUM CHLORIDE 0.9% 1,000 ML IV SCH ×2 (05:59→21:11)
[2017-05-28 06:07] LABS: Glucose,Whole Blood 185 mg/dL (75-99)
[2017-05-28] MEDS: LEVOTHYROXINE 50 MCG TAB PO SCH (06:08)
[2017-05-28 06:41] LABS: HCT 40.1 % (39.0-53.0); HGB 12.4 gm/dL (13.0-17.5); Hypochromasia Slight; MCH 27.9 pg (25.0-35.0); MCHC 30.8 g/dL (31.0-37.0); MCV 90.7 fL (80.0-100.0); Mean Platelet Volume 8.6; Platelet Count 173 k/uL (150-450); RBC 4.42 m/uL (4.30-5.90); RDW 13.9 % (11.5-15.5); WBC 10.9 k/uL (3.8-10.6)
[2017-05-28 06:47] LABS: Calcium 8.9 mg/dL (8.4-10.2); Magnesium 1.8 mg/dL (1.6-2.3); Phosphorus 3.1 mg/dL (2.5-4.5); Potassium 4.8 mmol/L (3.5-5.1)
[2017-05-28] MEDS: INSULIN ASPART 100 UNIT/ML 1 ML 10 ML VIAL SQ SCH ×4 (06:53→21:07)
[2017-05-28] MEDS: ASPIRIN 325 MG TAB PO SCH (08:50)
[2017-05-28] MEDS: METOPROLOL TARTRATE 25 MG TAB PO SCH ×2 (08:50→21:03)
[2017-05-28] MEDS: MYCOPHENOLATE SODIUM DR 180 MG TABLET.DR PO SCH ×2 (08:50→21:03)
[2017-05-28] MEDS: CHOLECALCIFEROL 1,000 UNIT TAB PO SCH (08:51)
[2017-05-28] MEDS: INSULIN DETEMIR 100 UNIT/ML 10 ML VIAL SQ SCH ×2 (08:54→21:07)
[2017-05-28] MEDS: cefTRIAXone IN SWFI 1,000 MG/10 ML SYRINGE IVP SCH (08:55)
[2017-05-28] MEDS ORDERED: PANTOPRAZOLE 40 MG/10 ML VIAL IVP SCH (09:00)
[2017-05-28 10:03] VITALS: BMI 19.9
--- NOTE | 2017-05-28 10:45 | P.PN ---
Subjective Progress Note Date: 05/28/17 Principal diagnosis: Nausea and vomiting This is a pleasant 62-year-old gentleman with a past medical history significant for coronary artery disease and prior stenting of the RCA and left circumflex, chronic kidney disease and status post kidney transplant, hypertension, dyslipidemia, and history of TIA, presented to the hospital complaining of nausea and vomiting. The patient does have chronic nausea but he stated that over the last 2-3 days it was quite worse compared to before. Denies having any chest pain or discomfort or shortness of breath or dizziness or lightheadedness. We get involved in the care of the patient because of abnormal cardiac enzymes. The patient did not have any chest pain or discomfort. He does have no significant history of coronary artery disease as described above. The EKG showed nonspecific changes in the anterolateral leads. More importantly, the creatinine is elevated and is about 2.5 with a baseline creatinine back in 2016 was about 1.5. Currently the patient is on IV fluid. He stated that he was not eating and drinking well before he was presented to the hospital and it was related to the nausea and vomiting he was experiencing. On follow-up with the patient today, he continues to be asymptomatic from the cardiac vascular standpoint and denies having any chest pain or discomfort and he stated that the nausea and vomiting has improved. The creatinine continues to be above 2. Still waiting for the echocardiogram to be performed. Objective - Vital Signs Vital signs: Vital Signs Temp 98.4 F 05/28/17 08:40 Pulse 76 05/28/17 08:40 Resp 16 05/28/17 08:40 BP 168/81 05/28/17 08:40 Pulse Ox 96 05/28/17 08:40 Intake & Output 05/27/17 05/28/17 05/28/17 18:59 06:59 18:59 Intake Total 635.585 571.7 240 Output Total 700 125 Balance -64.415 446.7 240 Weight 61.2 kg 61.2 kg Intake: IV 160 0.9 160 Intake, IV Titration 235.585 446.7 Amount Heparin Sod,Pork in 0.45% 235.585 266.7 NaCl 25,000 unit In 0.45 % NaCl 1 500ml.bag @ 12 UNITS/KG/HR 15.24 mls/hr IV .Q24H [facility] Rx#: [id number] Sodium Chloride 0.9% 1, 180 000 ml @ 60 mls/hr IV . [id number] [facility] Rx#:[id number] Oral 240 125 240 Output: Urine 700 125 Other: Voiding Method Urinal Urinal # Bowel Movements 2 1 - Constitutional General appearance: Present: no acute distress - Respiratory Respiratory: bilateral: CTA - Cardiovascular Rhythm: regular Heart sounds: normal: S1, S2 - Labs CBC & Chem 7: 05/28/17 06:13 05/28/17 06:13 Labs: Abnormal Lab Results - Last 24 Hours (Table) 05/27/17 05/27/17 05/27/17 Range/Units 05:50 10:23 11:58 WBC (3.8-10.6) k/uL Hgb (13.0-17.5) gm/dL MCHC (31.0-37.0) g/dL APTT 58.8 H (22.0-30.0) sec Sodium (137-145) mmol/L Carbon Dioxide (22-30) mmol/L BUN (9-20) mg/dL Creatinine (0.66-1.25) mg/dL Glucose (74-99) mg/dL POC Glucose (mg/dL) 328 H (75-99) mg/dL Hemoglobin A1c 9.7 H (4.0-6.0) % 05/27/17 05/27/17 05/28/17 Range/Units 16:37 21:37 06:05 WBC (3.8-10.6) k/uL Hgb (13.0-17.5) gm/dL MCHC (31.0-37.0) g/dL APTT (22.0-30.0) sec Sodium (137-145) mmol/L Carbon Dioxide (22-30) mmol/L BUN (9-20) mg/dL Creatinine (0.66-1.25) mg/dL Glucose (74-99) mg/dL POC Glucose (mg/dL) 282 H 130 H 185 H (75-99) mg/dL Hemoglobin A1c (4.0-6.0) % 05/28/17 05/28/17 05/28/17 Range/Units 06:13 06:13 06:13 WBC 10.9 H (3.8-10.6) k/uL Hgb 12.4 L (13.0-17.5) gm/dL MCHC 30.8 L (31.0-37.0) g/dL APTT 44.2 H (22.0-30.0) sec Sodium 134 L (137-145) mmol/L Carbon Dioxide 20 L (22-30) mmol/L BUN 41 H (9-20) mg/dL Creatinine 2.32 H (0.66-1.25) mg/dL Glucose 175 H (74-99) mg/dL POC Glucose (mg/dL) (75-99) mg/dL Hemoglobin A1c (4.0-6.0) % Microbiology - Last 24 Hours (Table) 05/27/17 16:00 Urine Culture - Preliminary Urine,Clean Catch Assessment and Plan Assessment: Assessment #1 nausea and vomiting of unknown etiology #2 mildly abnormal cardiac enzymes. #3 acute on chronic renal failure #4 known CAD and prior stenting as described above #5 multiple risk factors including hypertension and dyslipidemia #6 history of TIA Plan #1 I would consider conservative medical approach at this point of time in view of the absence of chest discomfort and the renal dysfunction #2 continue IV hydration #3 follow-up on the echocardiogram #4 continue the current medical treatment with antiplatelet, anticoagulation, and statin #5 follow-up with the patient Thank you for allowing us participate in his care
--- NOTE | 2017-05-28 11:28 | ECHOF ---
Referral Reason:elevated troponin MEASUREMENTS -------- HEIGHT: 175.3 cm WEIGHT: 60.8 kg BP: 80/41 IVSd: 0.8 cm (0.6 - 1.1) LVIDd: 5.1 cm (3.9 - 5.3) LVPWd: 1.2 cm (0.6 - 1.1) IVSs: 1.9 cm LVIDs: 2.0 cm LVPWs: 2.1 cm Ao Diam: 3.0 cm (2.0 - 3.7) LA Diam: 2.6 cm (2.7 - 3.8) AV Cusp: 1.4 cm (1.5 - 2.6) EPSS: 0.3 cm MV E Jarrte: 0.89 m/s MV DecT: 275 ms MV A Jarret: 1.08 m/s MV E/A Ratio: 0.82 RAP: 15.00 mmHg RVSP: 20.82 mmHg MV EF SLOPE: 160.83 mm/s (70 - 150) MV EXCURSION: 20.13 mm (> 18.000) FINDINGS -------- Sinus rhythm. This was a technically good study. The left ventricular size is normal. There is moderate concentric left ventricular hypertrophy. O verall left ventricular systolic function is normal with, an EF between 55 - 60 %. The right ventricle is normal in size and function. The left atrium is normal in size. The right atrium is normal in size. The aortic valve is trileaflet, and appears structurally normal. No aortic stenosis or regurgitation. The mitral valve leaflets are mildly thickened. There is trace mitral regurgitation. Mild tricuspid regurgitation present. The right ventricular systolic pressure, as measured by Doppl er, is 20.82mmHg. Pulmonic valve appears structurally normal. The aortic root size is normal. The inferior vena cava is mildly dilated. There is a trivial pericardial effusion present. CONCLUSIONS -------- 1. Sinus rhythm. 2. This was a technically good study. 3. The left ventricular size is normal. 4. There is moderate concentric left ventricular hypertrophy. 5. Overall left ventricular systolic function is normal with, an EF between 55 - 60 %. 6. The right ventricle is normal in size and function. 7. The left atrium is normal in size. 8. The right atrium is normal in size. 9. The aortic valve is trileaflet, and appears structurally normal. No aortic stenosis or regurgitati on. 10. The mitral valve leaflets are mildly thickened. 11. There is trace mitral regurgitation. 12. Mild tricuspid regurgitation present. 13. The right ventricular systolic pressure, as measured by Doppler, is 20.82mmHg. 14. Pulmonic valve appears structurally normal. 15. The aortic root size is normal. 16. The inferior vena cava is mildly dilated. 17. There is a trivial pericardial effusion present. [employer] TECHNICIAN: Francisca Richardson RDCS
[2017-05-28 11:57] LABS: Glucose,Whole Blood 302 mg/dL (75-99)
[2017-05-28] MEDS: TACROLIMUS 1 MG CAP PO SCH ×2 (12:10→21:03)
--- NOTE | 2017-05-28 12:15 | PN ---
PROGRESS NOTE Patient is seen for followup for acute kidney injury. He has been started on IV fluids. Patient also had a urinary tract infection and is currently maintained on Rocephin. Urine culture is pending. He states he is feeling better. PHYSICAL EXAMINATION: On examination, blood pressure was 168/81, heart rate 76 per minute. He is afebrile. EXAMINATION OF THE HEART: S1, S2. EXAMINATION OF THE LUNGS: Bilateral breath sounds are heard. Abdomen is soft, nontender. Examination of the lower extremities shows no evidence of edema. 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 LABS: Labs show sodium 134, potassium 4.8, BUN 41, serum creatinine 2.32. Hemoglobin 12.4 g/dL. ASSESSMENT: 1. Acute kidney injury, prerenal, currently improved with IV fluids. 2. Urinary tract infection, maintained on Rocephin. Urine culture still pending. 3. Hyperkalemia associated with acute kidney injury, now improved. 4. Status post donor transplant 2010 at [facility] with baseline creatinine about 1.7 in December of 2016 and about 2.2 to 2.3 in February of 2017, maintained on Prograf and Myfortic. 5. Metabolic acidosis secondary to renal failure. Patient also had positive serum acetone on admission. PLAN: Continue IV fluids. Possible discharge by tomorrow. Follow up on urine cultures. The patient will need close followup as outpatient. MMODL / IJN: [id number] /
[2017-05-28 17:10] LABS: Glucose,Whole Blood 151 mg/dL (75-99)
[2017-05-28] MEDS: METOCLOPRAMIDE 5 MG/ML 2 ML VIAL IVP SCH (17:12)
[2017-05-28] MEDS: ATORVASTATIN 80 MG TAB PO SCH (21:03)
[2017-05-28 21:04] LABS: Glucose,Whole Blood 184 mg/dL (75-99)
[2017-05-28] MEDS: SERTRALINE 100 MG TAB PO SCH (21:04)
[2017-05-29] MEDS: METOCLOPRAMIDE 5 MG/ML 2 ML VIAL IVP SCH ×3 (00:59→12:54)
[2017-05-29 05:49] LABS: Glucose,Whole Blood 70 mg/dL (75-99)
[2017-05-29] MEDS: INSULIN ASPART 100 UNIT/ML 1 ML 10 ML VIAL SQ SCH ×2 (06:18→12:53)
[2017-05-29] MEDS: LEVOTHYROXINE 50 MCG TAB PO SCH (06:19)
[2017-05-29 06:22] LABS: HCT 40.4 % (39.0-53.0); HGB 12.4 gm/dL (13.0-17.5); MCH 27.7 pg (25.0-35.0); MCHC 30.6 g/dL (31.0-37.0); MCV 90.4 fL (80.0-100.0); Mean Platelet Volume 8.4; Platelet Count 156 k/uL (150-450); RBC 4.47 m/uL (4.30-5.90); RDW 13.8 % (11.5-15.5)
[2017-05-29 06:34] LABS: Calcium 8.9 mg/dL (8.4-10.2); Magnesium 1.6 mg/dL (1.6-2.3); Phosphorus 3.1 mg/dL (2.5-4.5); Potassium 4.4 mmol/L (3.5-5.1)
[2017-05-29] MEDS ORDERED: PANTOPRAZOLE 40 MG TABLET PO SCH (07:30)
[2017-05-29] MEDS: ASPIRIN 325 MG TAB PO SCH (08:33)
[2017-05-29] MEDS: CHOLECALCIFEROL 1,000 UNIT TAB PO SCH (08:33)
[2017-05-29] MEDS: TACROLIMUS 1 MG CAP PO SCH (08:34)
[2017-05-29] MEDS: MYCOPHENOLATE SODIUM DR 180 MG TABLET.DR PO SCH (08:34)
[2017-05-29] MEDS: METOPROLOL TARTRATE 25 MG TAB PO SCH (08:34)
[2017-05-29] MEDS: cefTRIAXone IN SWFI 1,000 MG/10 ML SYRINGE IVP SCH (08:40)
[2017-05-29] MEDS: INSULIN DETEMIR 100 UNIT/ML 10 ML VIAL SQ SCH (08:40)
--- NOTE | 2017-05-29 11:18 | P.PN ---
Subjective Progress Note Date: 05/29/17 Principal diagnosis: Nausea and vomiting This is a pleasant 62-year-old gentleman with a past medical history significant for coronary artery disease and prior stenting of the RCA and left circumflex, chronic kidney disease and status post kidney transplant, hypertension, dyslipidemia, and history of TIA, presented to the hospital complaining of nausea and vomiting. The patient does have chronic nausea but he stated that over the last 2-3 days it was quite worse compared to before. Denies having any chest pain or discomfort or shortness of breath or dizziness or lightheadedness. We get involved in the care of the patient because of abnormal cardiac enzymes. The patient did not have any chest pain or discomfort. He does have no significant history of coronary artery disease as described above. The EKG showed nonspecific changes in the anterolateral leads. More importantly, the creatinine is elevated and is about 2.5 with a baseline creatinine back in 2016 was about 1.5. Currently the patient is on IV fluid. He stated that he was not eating and drinking well before he was presented to the hospital and it was related to the nausea and vomiting he was experiencing. On follow-up with the patient today, he continues to be asymptomatic from the cardiac vascular standpoint and denies having any chest pain or discomfort and he stated that the nausea and vomiting has improved. The creatinine continues to be above 2. The echocardiogram revealed normal LV function. From the cardiovascular standpoint overview he can be discharged home . Objective - Vital Signs Vital signs: Vital Signs Temp 97.3 F L 05/29/17 08:00 Pulse 71 05/29/17 08:00 Resp 16 05/29/17 08:00 BP 130/70 05/29/17 08:00 Pulse Ox 97 05/29/17 09:43 Intake & Output 05/28/17 05/29/17 05/29/17 18:59 06:59 18:59 Intake Total 1380 840 360 Output Total 1725 Balance -345 840 360 Weight 61.2 kg 61.6 kg Intake: IV 480 0.9 480 Intake, IV Titration 600 Amount Sodium Chloride 0.9% 1, 600 000 ml @ 60 mls/hr IV . [id number] [facility] Rx#:[id number] Oral 900 240 360 Output: Urine 1725 Other: Voiding Method Urinal Urinal Urinal # Voids 2 - Constitutional General appearance: Present: no acute distress - Respiratory Respiratory: bilateral: CTA - Cardiovascular Rhythm: regular Heart sounds: normal: S1, S2 - Labs CBC & Chem 7: 05/29/17 05:37 05/29/17 05:37 Labs: Abnormal Lab Results - Last 24 Hours (Table) 05/28/17 05/28/17 05/28/17 Range/Units 11:55 16:54 21:03 Hgb (13.0-17.5) gm/dL MCHC (31.0-37.0) g/dL BUN (9-20) mg/dL Creatinine (0.66-1.25) mg/dL Glucose (74-99) mg/dL POC Glucose (mg/dL) 302 H 151 H 184 H (75-99) mg/dL 05/29/17 05/29/17 05/29/17 Range/Units 05:37 05:37 05:47 Hgb 12.4 L (13.0-17.5) gm/dL MCHC 30.6 L (31.0-37.0) g/dL BUN 33 H (9-20) mg/dL Creatinine 2.01 H (0.66-1.25) mg/dL Glucose 61 L (74-99) mg/dL POC Glucose (mg/dL) 70 L (75-99) mg/dL Microbiology - Last 24 Hours (Table) 05/27/17 16:00 Urine Culture - Preliminary Urine,Clean Catch Gram Neg Bacilli Assessment and Plan Assessment: Assessment #1 nausea and vomiting of unknown etiology #2 mildly abnormal cardiac enzymes. #3 acute on chronic renal failure #4 known CAD and prior stenting as described above #5 multiple risk factors including hypertension and dyslipidemia #6 history of TIA Plan #1 I would consider conservative medical approach at this point of time in view of the absence of chest discomfort and the renal dysfunction #2 continue IV hydration #3 the echocardiogram revealed normal LV function #4 continue the current medical treatment with antiplatelet, anticoagulation, and statin #5 the patient can be discharged home
[2017-05-29 11:20] LABS: Glucose,Whole Blood 162 mg/dL (75-99)
[2017-05-29 17:22] VITALS: BP 137/69; PULSE 73; TEMP 98.1
--- NOTE | 2017-05-29 20:31 | PN ---
PROGRESS NOTE The patient is seen for followup for acute kidney injury which was mainly prerenal. His renal function has improved. Serum creatinine is down to 2.01 mg/dL from 2.9 on initial admission. He has been maintained on IV fluids. He wants to go home today. His blood sugar are also better controlled. He has been able to tolerate oral intake. EXAMINATION: Blood pressure is 137/69, heart rate 62 per minute. The patient is afebrile. Examination of the heart S1, S2. Examination of the lungs bilateral breath sounds are heard. Abdomen is soft, nontender. Examination lower extremities shows no evidence of edema. 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 LABS: Sodium 140, potassium 4.4, BUN 33, serum creatinine 2.01, hemoglobin 12.4 g/dL. ASSESSMENT: 1. Acute kidney injury, prerenal, currently significantly improved. 2. Status post donor transplant 2010 at [facility]. Maintained on Prograf and Myfortic, which we will continue. I will discuss with transplant regarding possibly trying to change the immunosuppressive medications. Patient states that he is unable to travel to [place] for the appointment. 3. Metabolic acidosis secondary to renal failure. The patient also had positive serum acetone on admission. This is all resolved now. 4. Urinary tract infection. Urine culture grew Klebsiella pneumonia. PLAN: Continue antibiotics. Continue current immunosuppressive medications. Continue to encourage increased oral intake. The patient should continue with the Protonix and we will see him for followup as outpatient in about 1-2 weeks time. MMODL / IJN: [id number] /
== END 2017-05-29 17:18 | disposition home or self-care (01) | DRG 683 ==
LOC: EC 17:36 → 6SEL 20:49 → 6ICU 21:53 → 6SEL 05-27 17:17
PROVIDERS: ADMIT Hospitalist; ATTEND Hospitalist
DX: N17.9 Acute kidney failure, unspecified (principal); Z94.0 Kidney transplant status; E10.22 Type 1 diabetes mellitus with diabetic chronic kidney disease; N39.0 Urinary tract infection, site not specified; R11.2 Nausea with vomiting, unspecified; E10.319 Type 1 diabetes mellitus with unspecified diabetic retinopathy without macular edema; E10.65 Type 1 diabetes mellitus with hyperglycemia; E86.0 Dehydration; I12.9 Hypertensive chronic kidney disease with stage 1 through stage 4 chronic kidney disease, or unspecified chronic kidney disease; N18.9 Chronic kidney disease, unspecified; E78.5 Hyperlipidemia, unspecified; K21.9 Gastro-esophageal reflux disease without esophagitis; F17.210 Nicotine dependence, cigarettes, uncomplicated; H54.8 Legal blindness, as defined in USA; G89.29 Other chronic pain; M54.9 Dorsalgia, unspecified; F32.9 Major depressive disorder, single episode, unspecified; E03.9 Hypothyroidism, unspecified; I25.10 Atherosclerotic heart disease of native coronary artery without angina pectoris; E87.5 Hyperkalemia; R53.81 Other malaise; R89.0 Abnormal level of enzymes in specimens from other organs, systems and tissues; B96.1 Klebsiella pneumoniae [K. pneumoniae] as the cause of diseases classified elsewhere; Z79.4 Long term (current) use of insulin; Z79.899 Other long term (current) drug therapy; I25.2 Old myocardial infarction; Z95.5 Presence of coronary angioplasty implant and graft; Z82.49 Family history of ischemic heart disease and other diseases of the circulatory system; Z79.02 Long term (current) use of antithrombotics/antiplatelets; Z79.82 Long term (current) use of aspirin; Z81.8 Family history of other mental and behavioral disorders; Z86.73 Personal history of transient ischemic attack (TIA), and cerebral infarction without residual deficits
CPT/HCPCS: 36415; 70450; 71046; 74018; 76705; 80048; 80051; 80053; 80061; 81001; 82009; 82150; 82550; 82553; 83036; 83690; 83735; 84100; 84484; 85025; 85027; 85049; 85610; 85730; 87077; 87086; 87186; 93005; 93306; 94760; 96361; 96365; 96375; 96376; 99285

== ENCOUNTER 2017-12-16 22:04 | Inpatient (IN) | payer OTHER, MEDICARE ==
[2017-12-16] MEDS ORDERED: ONDANSETRON 4 MG/2 ML VIAL IVP STA (22:33)
[2017-12-16] MEDS ORDERED: SODIUM CHLORIDE 0.9% 500 ML 500 ML IV STA (22:33)
[2017-12-16 22:57] LABS: Glucose,Whole Blood 310 mg/dL (75-99)
[2017-12-16 23:02] LABS: Appearance,Urine Turbid (Clear); Bilirubin,Urine Negative (Negative); Blood,Urine Moderate (Negative); Color,Urine Yellow; Glucose,Urine (UA) 4+ (Negative); Ketones,Urine Trace (Negative); Leukocyte Esterase,Urine Large (Negative); Nitrite,Urine Positive (Negative); PH, Urine 5.5 (5.0-8.0); Protein,Urine 2+ (Negative); RBC,Urine 17 /hpf (0-5); Specific Gravity,Urine 1.013 (1.001-1.035); Urobilinogen,Urine <2.0 mg/dL (<2.0); WBC,Urine >182 /hpf (0-5)
[2017-12-16 23:03] LABS: Basophils % (A) 0 %; Eosinophils % (A) 0 %; HCT 44.8 % (39.0-53.0); HGB 13.5 gm/dL (13.0-17.5); Hypochromasia Moderate; Lymphocytes # (A) 0.6 k/uL (1.0-4.8); Lymphocytes % (A) 9 %; MCH 28.8 pg (25.0-35.0); Monocytes # (A) 0.7 k/uL (0-1.0); Monocytes % (A) 11 %; Neutrophils % (A) 76 %; Platelet Count 195 k/uL (150-450); RBC 4.67 m/uL (4.30-5.90); RDW 14.1 % (11.5-15.5); WBC 6.6 k/uL (3.8-10.6)
[2017-12-16 23:08] LABS: Albumin 4.1 g/dL (3.5-5.0); Calcium 9.2 mg/dL (8.4-10.2); Potassium 5.1 mmol/L (3.5-5.1); Total Bilirubin 0.6 mg/dL (0.2-1.3); Total Protein 6.6 g/dL (6.3-8.2)
--- NOTE | 2017-12-16 23:22 | XR ---
EXAMINATION TYPE: XR chest 2V DATE OF EXAM: 12/16/2017 COMPARISON: 05/26/2017 HISTORY: Chest pain TECHNIQUE: Frontal and lateral views of the chest are obtained. FINDINGS: Heart is normal. Lungs are clear of infiltrate. There is no pleural effusion. Bony thorax is intact. There are chest leads. There are old left-sided healed rib fractures. IMPRESSION: No active cardiopulmonary disease. No change.
[2017-12-16 23:23] LABS: Magnesium 1.4 mg/dL (1.6-2.3)
[2017-12-16 23:26] LABS: INR 1.1 (<1.2); Prothrombin Time 10.5 sec (9.0-12.0)
[2017-12-16 23:56] LABS: Creatine Kinase MB 3.8 ng/mL (0.0-2.4)
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
[2017-12-17] MEDS ORDERED: MAGNESIUM SULFATE-D5W PMX 2 GM in DEXTROSE/WATER 1 100ML.BAG IVPB ONE (00:20)
[2017-12-17 00:22] LABS: Troponin I 0.047 ng/mL (0.000-0.034)
[2017-12-17] MEDS ORDERED: ceFAZolin 1,000 MG in DEXTROSE/WATER 1 50ML.BAG IVPB STA (01:18)
[2017-12-17] MEDS ORDERED: NALOXONE 0.4 MG/ML 1 ML VIAL IV PRN (01:19)
[2017-12-17] MEDS: LEVOTHYROXINE 50 MCG TAB PO SCH (06:08)
[2017-12-17 07:09] LABS: Glucose,Whole Blood 128 mg/dL (75-99)
[2017-12-17] MEDS: INSULIN ASPART 100 UNIT/ML 1 ML 10 ML VIAL SQ SCH ×4 (07:27→21:06)
[2017-12-17] MEDS: MYCOPHENOLATE SODIUM DR 180 MG TABLET.DR PO SCH ×2 (08:23→20:11)
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
[2017-12-17] MEDS ORDERED: METOPROLOL TARTRATE 25 MG TAB PO SCH (09:00)
[2017-12-17] MEDS: ASPIRIN 81 MG PO SCH (09:01)
[2017-12-17] MEDS: CHOLECALCIFEROL 1,000 UNIT TAB PO SCH (09:02)
[2017-12-17] MEDS: TACROLIMUS 1 MG CAP PO SCH ×2 (09:02→20:12)
[2017-12-17] MEDS: PANTOPRAZOLE 40 MG TABLET PO SCH (09:02)
[2017-12-17] MEDS: CLOPIDOGREL 75 MG TAB PO SCH (09:02)
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
[2017-12-17 10:17] LABS: Calcium 9.3 mg/dL (8.4-10.2); Potassium 5.1 mmol/L (3.5-5.1)
[2017-12-17 10:28] LABS: Creatine Kinase MB 3.9 ng/mL (0.0-2.4)
--- NOTE | 2017-12-17 10:55 | ECHOF ---
Referral Reason: MEASUREMENTS -------- HEIGHT: 175.3 cm WEIGHT: 65.8 kg BP: IVSd: 1.6 cm (0.6 - 1.1) LVIDd: 4.0 cm (3.9 - 5.3) LVPWd: 1.5 cm (0.6 - 1.1) IVSs: 2.0 cm LVIDs: 2.9 cm LVPWs: 1.9 cm LAESV Index (A-L): 29.04 ml/m Ao Diam: 3.4 cm (2.0 - 3.7) AV Cusp: 1.8 cm (1.5 - 2.6) LA Diam: 2.8 cm (2.7 - 3.8) MV EXCURSION: 17.701 mm (> 18.000) MV EF SLOPE: 83 mm/s (70 - 150) EPSS: 0.3 cm MV E Jarret: 1.07 m/s MV DecT: 239 ms MV A Jarret: 0.99 m/s MV E/A Ratio: 1.08 RAP: 5.00 mmHg RVSP: 8.99 mmHg FINDINGS -------- Sinus rhythm. This was a technically good study. The left ventricular size is normal. There is moderate concentric left ventricular hypertrophy. O verall left ventricular systolic function is normal with, an EF between 55 - 60 %. The right ventricle is normal in size and function. The left atrium is normal in size. The right atrium is normal in size. The aortic valve is trileaflet, and appears structurally normal. No aortic stenosis or regurgitation. The mitral valve leaflets are mildly thickened. Mild mitral regurgitation is present. Mild tricuspid regurgitation present. The right ventricular systolic pressure, as measured by Doppl er, is 8.99mmHg. Pulmonic valve appears structurally normal. The aortic root, ascending aorta and aortic arch are normal. The pericardium is normal. CONCLUSIONS -------- 1. Sinus rhythm. 2. This was a technically good study. 3. The left ventricular size is normal. 4. There is moderate concentric left ventricular hypertrophy. 5. Overall left ventricular systolic function is normal with, an EF between 55 - 60 %. 6. The right ventricle is normal in size and function. 7. The left atrium is normal in size. 8. The right atrium is normal in size. 9. The aortic valve is trileaflet, and appears structurally normal. No aortic stenosis or regurgitati on. 10. The mitral valve leaflets are mildly thickened. 11. Mild mitral regurgitation is present. 12. Mild tricuspid regurgitation present. 13. The right ventricular systolic pressure, as measured by Doppler, is 8.99mmHg. 14. Pulmonic valve appears structurally normal. 15. The aortic root, ascending aorta and aortic arch are normal. 16. The pericardium is normal. DIE OPERATOR: Francisca Richardson RDCS
[2017-12-17 11:15] LABS: Glucose,Whole Blood 139 mg/dL (75-99)
[2017-12-17] MEDS ORDERED: HEPARIN SODIUM,PORCINE 5,000 UNIT/ML 1 ML VIAL IV PRN (11:27)
[2017-12-17] MEDS: INSULIN DETEMIR 100 UNIT/ML 10 ML VIAL SQ SCH ×2 (11:30→21:08)
[2017-12-17] MEDS: HEPARIN SODIUM,PORCINE 5,000 UNIT/ML 1 ML VIAL IV ONE ×2 (13:10→15:14)
[2017-12-17] MEDS: HEPARIN SOD,PORK IN 0.45% NACL 25,000 UNIT in 0.45% NACL 1 500ML.BAG IV SCH ×2 (13:12→15:15)
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
[2017-12-17 13:58] LABS: Basophils % (A) 0 %; Eosinophils # (A) 0.1 k/uL (0-0.7); Eosinophils % (A) 1 %; HCT 39.7 % (39.0-53.0); HGB 11.9 gm/dL (13.0-17.5); Hypochromasia Slight; Lymphocytes # (A) 0.6 k/uL (1.0-4.8); Lymphocytes % (A) 8 %; MCH 28.2 pg (25.0-35.0); MCHC 30.1 g/dL (31.0-37.0); MCV 93.6 fL (80.0-100.0); Mean Platelet Volume 8.1; Monocytes # (A) 0.5 k/uL (0-1.0); Monocytes % (A) 8 %; Neutrophils # (A) 5.7 k/uL (1.3-7.7); Neutrophils % (A) 81 %; Platelet Count 183 k/uL (150-450); RBC 4.24 m/uL (4.30-5.90); RDW 14.2 % (11.5-15.5); WBC 7.1 k/uL (3.8-10.6)
[2017-12-17 14:08] LABS: INR 1.1 (<1.2); Partial Thromboplastin Time 25.2 sec (22.0-30.0); Prothrombin Time 10.4 sec (9.0-12.0)
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
[2017-12-17] MEDS ORDERED: ceFAZolin 1,000 MG in DEXTROSE/WATER 1 50ML.BAG IVPB SCH (15:00)
[2017-12-17] MEDS: SODIUM CHLORIDE 0.9% 1,000 ML IV SCH ×2 (16:10→20:12)
[2017-12-17 16:33] LABS: Glucose,Whole Blood 289 mg/dL (75-99)
[2017-12-17 19:30] LABS: Hemoglobin A1C 9.7 % (4.0-6.0)
[2017-12-17] MEDS: ATORVASTATIN 80 MG TAB PO SCH (20:12)
[2017-12-17] MEDS: SERTRALINE 100 MG TAB PO SCH (20:12)
[2017-12-17] MEDS: METOPROLOL TARTRATE 50 MG TAB PO SCH (20:12)
[2017-12-17 20:50] LABS: Glucose,Whole Blood 460 mg/dL (75-99)
[2017-12-17] MEDS ORDERED: HEPARIN SODIUM,PORCINE 5,000 UNIT/ML 1 ML VIAL SQ SCH (21:00)
--- NOTE | 2017-12-17 22:54 | P.CON ---
Consult Note - . Consult date: 12/17/17 Assessment/Plan:: This is a 62-year-old Caucasion male with past medical history of DM, insulin dependent, diagnosed in 1981, with diabetic retinopathy, diabetic neuropathy, ESRD status post renal transplant November 2010, multiple TIAs, hypertension, myocardial infarction. Patient gives history that he was treated for C. difficile colitis 2 years ago and that cleared up but he has continued to have ongoing problems with diarrhea that comes and goes. At the worst he has watery stools 40-50 times per day with cramping and on his best days it is soft stool up to 10 times per day. At that point he does not have any pain. He has denied having any blood or tarry stools. He also states he has had ongoing problems with vomiting intermittently for an unknown number of years. He does not know anything that makes it worse or better. He denies any blood or tarriness in his stools. He states he has had workup at [facility] in upper and lower scopes were done and he does not know any findings or diagnoses from this. Regarding urinary tract infection, patient states he does have burning with urination but he is mostly incontinent and does not even realize he is going. He states he is always cold but denies having any fever. He states he has no feeling in his feet and he does have a small lesion on bilateral ankle areas. He states he has some dizziness most of the time. He also has decreased appetite Patient states he came in the hospital regarding chest pain on the right side of his chest along with some shortness of breath and sweats and episode of vomiting. He came into [facility] emergency center for evaluation. His white count was 6.6, he was afebrile, blood sugar was 343 and acetone was positive. Urinalysis was turbid, blood moderate, positive glucose and ketones, leukoesterase large, RBC 17 and WBC is 132 with clumps. Chest x-ray showed no acute cardiopulmonary process. His initial troponin was 0.04 7 repeat was 0.297. Patient received 500 ML's of IV fluids, Zofran, Kefzol and magnesium was replaced while in the emergency center. Patient was then admitted to the [facility] floor. He has been seen by Dr. Cast for end- stage renal disease and chronic any disease stage IIIB with acute allograft dysfunction. His BUN was 42 and creatinine 2.57. Please see the consult is dictated by nurse practitioner Mrs. Katerin Silva. As noted the patient has multiple chronic complaints many complications due to his uncontrolled diabetes. It admission is feeling poorly and likely has evidence of a non-STEMI MT is being followed by cardiology is receiving heparin drip at this time. There is a markedly abnormal urinalysis and urine culture is pending. With prior culture showing Klebsiella and even a synovectomy in the past antibiotic therapy is being utilized with Rocephin which will be continued until further culture results are available. I agree with evaluation , assessment and plan as dictated by nurse practitioner Mrs. Katerin Silva.
[2017-12-18 00:03] LABS: Glucose,Whole Blood 177 mg/dL (75-99)
[2017-12-18] MEDS ORDERED: DEXTROSE 50%-WATER 50 ML SYRINGE IVP ONE (03:12)
[2017-12-18 03:29] LABS: Glucose,Whole Blood 34 mg/dL (75-99)
[2017-12-18 03:29] LABS: Glucose,Whole Blood 215 mg/dL (75-99)
[2017-12-18 03:29] LABS: Glucose,Whole Blood 31 mg/dL (75-99)
[2017-12-18 03:31] LABS: Calcium 9.4 mg/dL (8.4-10.2); Magnesium 1.7 mg/dL (1.6-2.3); Potassium 4.3 mmol/L (3.5-5.1)
[2017-12-18 03:38] LABS: HCT 43.1 % (39.0-53.0); HGB 13.4 gm/dL (13.0-17.5); Hypochromasia Slight; MCH 28.8 pg (25.0-35.0); MCV 93.1 fL (80.0-100.0); Mean Platelet Volume 8.3; Platelet Count 229 k/uL (150-450); RBC 4.64 m/uL (4.30-5.90); RDW 14.1 % (11.5-15.5); WBC 9.1 k/uL (3.8-10.6)
[2017-12-18 05:36] LABS: Band Neutrophils % 1 %; Lymphocytes # (M) 1.37 k/uL (1.0-4.8); Monocytes # (M) 1.27 k/uL (0-1.0); Neutrophils % (M) 70 %; Nucleated Red Blood Cells 0 /100 WBC (0-0); Total Cells Counted 100
[2017-12-18 05:45] LABS: Glucose,Whole Blood 68 mg/dL (75-99)
[2017-12-18] MEDS: INSULIN ASPART 100 UNIT/ML 1 ML 10 ML VIAL SQ SCH ×4 (05:55→20:43)
[2017-12-18 06:04] LABS: Glucose,Whole Blood 62 mg/dL (75-99)
[2017-12-18 06:24] LABS: Glucose,Whole Blood 81 mg/dL (75-99)
[2017-12-18] MEDS: PANTOPRAZOLE 40 MG TABLET PO SCH (06:32)
[2017-12-18] MEDS: LEVOTHYROXINE 50 MCG TAB PO SCH (06:32)
[2017-12-18] MEDS ORDERED: Magnesium Replacement Protocol 1 EACH MISC MISCELLANE PRN (08:16)
--- NOTE | 2017-12-18 09:02 | P.PN ---
Subjective This is a pleasant 62 years old female with past medical history of coronary artery disease, history of end stage renal disease was on hemodialysis, status post kidney transplant in 2010, diabetes mellitus, diabetic retinopathy, patient is legally blind. History of hyperlipidemia, hypertension, chronic low back pain. [facility] Patient presents because of persistent nausea vomiting associated with loose bowel movement. Patient cannot tell how many days have been suffering from these however he denies abdominal pain or chest pain. He vomited about 4 times yesterday and moved his bowels twice yesterday which was loose. There was no blood in his stool or vomit as per patient. No dizziness. Patient feels generally weak and lethargic. On admission patient was found to have evidence of urinary tract infection and dehydration. Also on the labs is showing elevated troponin at 0.047. With elevated creatinine 2.57. Since earlier this years his creatinine was fluctuating between 2.0-2.9. No leukocytosis and his CBC was unremarkable. Chest x-ray: No acute process 12/18/2017 Patient feels better as and her symptoms are improving. This chest pain on the right side is gone as per patient and he rates it as 0/10 today. No breathing difficulty or dyspnea. His hydration status looks better. No dysuria however he reports some increase in frequency. He is on IV fluids and the lower rate from 75 to 50 liter per hour. No more nausea or vomiting. He has normal formed bowel movement last night. Myfortic this is still on hold for nephrology team recommendation. This morning his sugars dropped to 31. His Levemir is lowered from 20 to 10 units twice a day and change fluid to D5 normal saline. Follow-up glucose. Patient is still on heparin drip. As well as he is on aspirin and Plavix. His Lopressor has increased yesterday and his blood pressure is better today. His CBC looks better. His creatinine is stable at 2.5. Magnesium 1.7 and been replaced. Occult blood in stool still pending as well as tacrolimus level. Urine culture: Still in the process. His hemoglobin A1c is 9.7% Objective - Vital Signs Vital signs: Vital Signs Temp 98 F 12/18/17 04:00 Pulse 56 L 12/18/17 04:00 Resp 18 12/18/17 04:00 BP 131/57 12/18/17 04:00 Pulse Ox 95 12/18/17 04:00 Intake & Output 12/17/17 12/18/17 12/18/17 18:59 06:59 18:59 Intake Total 270 83.371 180 Balance 270 83.371 180 Intake: Intake, IV Titration 270 83.371 Amount Heparin Sod,Pork in 0.45% 45 83.371 NaCl 25,000 unit In 0.45 % NaCl 1 500ml.bag @ 12 UNITS/KG/HR 15.78 mls/hr IV .Q24H [facility] Rx#: [id number] Sodium Chloride 0.9% 1, 225 000 ml @ 75 mls/hr IV . [id number] [facility] Rx#:[id number] Oral 180 Other: Voiding Method Urinal # Voids 2 2 - Exam GENERAL: The patient is alert and oriented x3, not in any acute distress. Well developed, well nourished. HEENT: Pupils are round and equally reacting to light. EOMI. No scleral icterus. No conjunctival pallor. Normocephalic, atraumatic. No pharyngeal erythema. No thyromegaly. CARDIOVASCULAR: S1 and S2 present. No murmurs, rubs, or gallops. PULMONARY: Chest is clear to auscultation, no wheezing or crackles. ABDOMEN: Soft, nontender, nondistended, normoactive bowel sounds. No palpable organomegaly. MUSCULOSKELETAL: No joint swelling or deformity. EXTREMITIES: No cyanosis, clubbing, or pedal edema. NEUROLOGICAL: Gross neurological examination did not reveal any focal deficits. SKIN: No rashes. - Labs CBC & Chem 7: 12/18/17 03:02 12/18/17 03:02 Labs: Abnormal Lab Results - Last 24 Hours (Table) 12/17/17 12/17/17 12/17/17 Range/Units 09:28 09:28 09:28 RBC (4.30-5.90) m/uL Hgb (13.0-17.5) gm/dL MCHC (31.0-37.0) g/dL Lymphocytes # (1.0-4.8) k/uL Monocytes # (Manual) (0-1.0) k/uL APTT (22.0-30.0) sec Chloride (98-107) mmol/L Carbon Dioxide (22-30) mmol/L BUN 38 H (9-20) mg/dL Creatinine 2.46 H (0.66-1.25) mg/dL Glucose 131 H (74-99) mg/dL POC Glucose (mg/dL) (75-99) mg/dL Hemoglobin A1c 9.7 H (4.0-6.0) % Total Creatine Kinase 39 L (55-170) U/L CK-MB (CK-2) 3.9 H (0.0-2.4) ng/mL Troponin I (0.000-0.034) ng/mL HDL Cholesterol (40-60) mg/dL 12/17/17 12/17/17 12/17/17 Range/Units 09:28 11:04 13:32 RBC 4.24 L (4.30-5.90) m/uL Hgb 11.9 L (13.0-17.5) gm/dL MCHC 30.1 L (31.0-37.0) g/dL Lymphocytes # 0.6 L (1.0-4.8) k/uL Monocytes # (Manual) (0-1.0) k/uL APTT (22.0-30.0) sec Chloride (98-107) mmol/L Carbon Dioxide (22-30) mmol/L BUN (9-20) mg/dL Creatinine (0.66-1.25) mg/dL Glucose (74-99) mg/dL POC Glucose (mg/dL) 139 H (75-99) mg/dL Hemoglobin A1c (4.0-6.0) % Total Creatine Kinase (55-170) U/L CK-MB (CK-2) (0.0-2.4) ng/mL Troponin I 0.297 H* (0.000-0.034) ng/mL HDL Cholesterol (40-60) mg/dL 12/17/17 12/17/17 12/17/17 Range/Units 13:32 16:31 19:56 RBC (4.30-5.90) m/uL Hgb (13.0-17.5) gm/dL MCHC (31.0-37.0) g/dL Lymphocytes # (1.0-4.8) k/uL Monocytes # (Manual) (0-1.0) k/uL APTT (22.0-30.0) sec Chloride (98-107) mmol/L Carbon Dioxide (22-30) mmol/L BUN (9-20) mg/dL Creatinine (0.66-1.25) mg/dL Glucose (74-99) mg/dL POC Glucose (mg/dL) 289 H (75-99) mg/dL Hemoglobin A1c (4.0-6.0) % Total Creatine Kinase (55-170) U/L CK-MB (CK-2) (0.0-2.4) ng/mL Troponin I 0.222 H* 0.125 H* (0.000-0.034) ng/mL HDL Cholesterol (40-60) mg/dL 12/17/17 12/17/17 12/18/17 Range/Units 19:56 20:48 00:01 RBC (4.30-5.90) m/uL Hgb (13.0-17.5) gm/dL MCHC (31.0-37.0) g/dL Lymphocytes # (1.0-4.8) k/uL Monocytes # (Manual) (0-1.0) k/uL APTT 41.3 H (22.0-30.0) sec Chloride (98-107) mmol/L Carbon Dioxide (22-30) mmol/L BUN (9-20) mg/dL Creatinine (0.66-1.25) mg/dL Glucose (74-99) mg/dL POC Glucose (mg/dL) 460 H 177 H (75-99) mg/dL Hemoglobin A1c (4.0-6.0) % Total Creatine Kinase (55-170) U/L CK-MB (CK-2) (0.0-2.4) ng/mL Troponin I (0.000-0.034) ng/mL HDL Cholesterol (40-60) mg/dL 12/18/17 12/18/17 12/18/17 Range/Units 03:02 03:02 03:02 RBC (4.30-5.90) m/uL Hgb (13.0-17.5) gm/dL MCHC (31.0-37.0) g/dL Lymphocytes # (1.0-4.8) k/uL Monocytes # (Manual) 1.27 H (0-1.0) k/uL APTT 41.2 H (22.0-30.0) sec Chloride 111 H (98-107) mmol/L Carbon Dioxide 21 L (22-30) mmol/L BUN 39 H (9-20) mg/dL Creatinine 2.50 H (0.66-1.25) mg/dL Glucose 33 L* (74-99) mg/dL POC Glucose (mg/dL) (75-99) mg/dL Hemoglobin A1c (4.0-6.0) % Total Creatine Kinase (55-170) U/L CK-MB (CK-2) (0.0-2.4) ng/mL Troponin I (0.000-0.034) ng/mL HDL Cholesterol 38 L (40-60) mg/dL 12/18/17 12/18/17 12/18/17 Range/Units 03:08 03:09 03:28 RBC (4.30-5.90) m/uL Hgb (13.0-17.5) gm/dL MCHC (31.0-37.0) g/dL Lymphocytes # (1.0-4.8) k/uL Monocytes # (Manual) (0-1.0) k/uL APTT (22.0-30.0) sec Chloride (98-107) mmol/L Carbon Dioxide (22-30) mmol/L BUN (9-20) mg/dL Creatinine (0.66-1.25) mg/dL Glucose (74-99) mg/dL POC Glucose (mg/dL) 34 L 31 L 215 H (75-99) mg/dL Hemoglobin A1c (4.0-6.0) % Total Creatine Kinase (55-170) U/L CK-MB (CK-2) (0.0-2.4) ng/mL Troponin I (0.000-0.034) ng/mL HDL Cholesterol (40-60) mg/dL 12/18/17 12/18/17 Range/Units 05:43 05:57 RBC (4.30-5.90) m/uL Hgb (13.0-17.5) gm/dL MCHC (31.0-37.0) g/dL Lymphocytes # (1.0-4.8) k/uL Monocytes # (Manual) (0-1.0) k/uL APTT (22.0-30.0) sec Chloride (98-107) mmol/L Carbon Dioxide (22-30) mmol/L BUN (9-20) mg/dL Creatinine (0.66-1.25) mg/dL Glucose (74-99) mg/dL POC Glucose (mg/dL) 68 L 62 L (75-99) mg/dL Hemoglobin A1c (4.0-6.0) % Total Creatine Kinase (55-170) U/L CK-MB (CK-2) (0.0-2.4) ng/mL Troponin I (0.000-0.034) ng/mL HDL Cholesterol (40-60) mg/dL Microbiology - Last 24 Hours (Table) 12/17/17 18:00 Urine Culture - Preliminary Urine,Clean Catch 12/17/17 00:00 Urine Culture - Preliminary Urine,Voided Assessment and Plan Assessment: Possible gastroenteritis, with persistent nausea and vomiting on admission Chest pain, rule out cardiac cause UTI, history of recurrent Klebsiella UTI Story of coronary artery disease history of end stage renal disease was on hemodialysis, status post kidney transplant in 2010 diabetes mellitus, on insulin and uncontrolled Periods of hypoglycemia diabetic retinopathy, patient is legally blind. History of hyperlipidemia Essential hypertension chronic low back pain Electrolyte abnormality, hypomagnesemia Plan: This is a pleasant 62 years old female who presents with gastroenteritis-like pictures and chest pain UTI. Continue with nephrology consult recommendation for her history of kidney disease and kidney transplant. Continue with IV fluids. And tenuous antibiotic. Follow-up culture results. Cardiology consultation for chest pain and elevated troponin. Labs and medication were resumed. Continue same treatment. Continue with symptomatic treatment. Resume home medication. Monitor lytes and vitals. DVT and GI prophylaxis. Further recommendationsof the clinical course of the patient DVT prophylaxis: Subcutaneous heparin GI Prophylaxis: Protonix PT/OT: Pending Prognosis is guarded
[2017-12-18] MEDS: DEXTROSE 5%-0.9% NACL 1,000 ML IV SCH ×2 (09:13→21:27)
[2017-12-18] MEDS: METOPROLOL TARTRATE 50 MG TAB PO SCH ×2 (09:14→19:25)
[2017-12-18] MEDS: CHOLECALCIFEROL 1,000 UNIT TAB PO SCH (09:14)
[2017-12-18] MEDS: MYCOPHENOLATE SODIUM DR 180 MG TABLET.DR PO SCH ×2 (09:14→19:25)
[2017-12-18] MEDS: ASPIRIN 81 MG PO SCH (09:14)
[2017-12-18] MEDS: TACROLIMUS 1 MG CAP PO SCH ×2 (09:14→19:25)
[2017-12-18] MEDS: CLOPIDOGREL 75 MG TAB PO SCH (09:14)
[2017-12-18] MEDS: MAGNESIUM SULFATE-D5W PMX 1 GM in DEXTROSE/WATER 1 100ML.BAG IVPB SCH ×2 (10:20→12:26)
[2017-12-18] MEDS: INSULIN DETEMIR 100 UNIT/ML 10 ML VIAL SQ SCH ×2 (10:20→20:43)
[2017-12-18 10:24] LABS: Glucose,Whole Blood 152 mg/dL (75-99)
--- NOTE | 2017-12-18 11:11 | P.PN ---
Subjective Patient is seen in follow-up for acute allograft dysfunction. Patient received a donor renal allograft in 2010 at [facility]. Etiology is diabetic kidney disease. Patient presented with nausea vomiting and diarrhea. The symptoms have improved. He is tolerating oral intake. Admits to good urine output. Blood sugar was low this morning and is currently receiving D5 normal saline at 75 mL an hour. Creatinine stable at 2.5 today. Vital signs are stable. General: The patient appeared well nourished and normally developed. HEENT: Head exam is unremarkable. Neck is without jugular venous distension. LUNGS: Lungs are clear to auscultation and percussion. Breath sounds decreased. HEART: Rate and Rhythm are regular. First and second heart sounds normal. No murmurs, rubs or gallops. ABDOMEN: Abdominal exam reveals normal bowel sounds. Non-tender and non- distended. No evidence of peritonitis. EXTREMITITES: No clubbing, cyanosis, or edema. Objective - Vital Signs Vital signs: Vital Signs Temp 97.6 F 12/18/17 08:55 Pulse 61 12/18/17 08:55 Resp 16 12/18/17 08:55 BP 165/79 12/18/17 08:55 Pulse Ox 99 12/18/17 08:55 Intake & Output 12/17/17 12/18/17 12/18/17 18:59 06:59 18:59 Intake Total 270 83.371 180 Balance 270 83.371 180 Intake: Intake, IV Titration 270 83.371 Amount Heparin Sod,Pork in 0.45% 45 83.371 NaCl 25,000 unit In 0.45 % NaCl 1 500ml.bag @ 12 UNITS/KG/HR 15.78 mls/hr IV .Q24H [facility] Rx#: [id number] Sodium Chloride 0.9% 1, 225 000 ml @ 75 mls/hr IV . [id number] [facility] Rx#:[id number] Oral 180 Other: Voiding Method Urinal Urinal # Voids 2 2 - Labs CBC & Chem 7: 12/18/17 03:02 12/18/17 03:02 Labs: Abnormal Lab Results - Last 24 Hours (Table) 12/17/17 12/17/17 12/17/17 Range/Units 09:28 11:04 13:32 RBC 4.24 L (4.30-5.90) m/uL Hgb 11.9 L (13.0-17.5) gm/dL MCHC 30.1 L (31.0-37.0) g/dL Lymphocytes # 0.6 L (1.0-4.8) k/uL Monocytes # (Manual) (0-1.0) k/uL APTT (22.0-30.0) sec Chloride (98-107) mmol/L Carbon Dioxide (22-30) mmol/L BUN (9-20) mg/dL Creatinine (0.66-1.25) mg/dL Glucose (74-99) mg/dL POC Glucose (mg/dL) 139 H (75-99) mg/dL Hemoglobin A1c 9.7 H (4.0-6.0) % Troponin I (0.000-0.034) ng/mL HDL Cholesterol (40-60) mg/dL 12/17/17 12/17/17 12/17/17 Range/Units 13:32 16:31 19:56 RBC (4.30-5.90) m/uL Hgb (13.0-17.5) gm/dL MCHC (31.0-37.0) g/dL Lymphocytes # (1.0-4.8) k/uL Monocytes # (Manual) (0-1.0) k/uL APTT (22.0-30.0) sec Chloride (98-107) mmol/L Carbon Dioxide (22-30) mmol/L BUN (9-20) mg/dL Creatinine (0.66-1.25) mg/dL Glucose (74-99) mg/dL POC Glucose (mg/dL) 289 H (75-99) mg/dL Hemoglobin A1c (4.0-6.0) % Troponin I 0.222 H* 0.125 H* (0.000-0.034) ng/mL HDL Cholesterol (40-60) mg/dL 12/17/17 12/17/17 12/18/17 Range/Units 19:56 20:48 00:01 RBC (4.30-5.90) m/uL Hgb (13.0-17.5) gm/dL MCHC (31.0-37.0) g/dL Lymphocytes # (1.0-4.8) k/uL Monocytes # (Manual) (0-1.0) k/uL APTT 41.3 H (22.0-30.0) sec Chloride (98-107) mmol/L Carbon Dioxide (22-30) mmol/L BUN (9-20) mg/dL Creatinine (0.66-1.25) mg/dL Glucose (74-99) mg/dL POC Glucose (mg/dL) 460 H 177 H (75-99) mg/dL Hemoglobin A1c (4.0-6.0) % Troponin I (0.000-0.034) ng/mL HDL Cholesterol (40-60) mg/dL 12/18/17 12/18/17 12/18/17 Range/Units 03:02 03:02 03:02 RBC (4.30-5.90) m/uL Hgb (13.0-17.5) gm/dL MCHC (31.0-37.0) g/dL Lymphocytes # (1.0-4.8) k/uL Monocytes # (Manual) 1.27 H (0-1.0) k/uL APTT 41.2 H (22.0-30.0) sec Chloride 111 H (98-107) mmol/L Carbon Dioxide 21 L (22-30) mmol/L BUN 39 H (9-20) mg/dL Creatinine 2.50 H (0.66-1.25) mg/dL Glucose 33 L* (74-99) mg/dL POC Glucose (mg/dL) (75-99) mg/dL Hemoglobin A1c (4.0-6.0) % Troponin I (0.000-0.034) ng/mL HDL Cholesterol 38 L (40-60) mg/dL 12/18/17 12/18/17 12/18/17 Range/Units 03:08 03:09 03:28 RBC (4.30-5.90) m/uL Hgb (13.0-17.5) gm/dL MCHC (31.0-37.0) g/dL Lymphocytes # (1.0-4.8) k/uL Monocytes # (Manual) (0-1.0) k/uL APTT (22.0-30.0) sec Chloride (98-107) mmol/L Carbon Dioxide (22-30) mmol/L BUN (9-20) mg/dL Creatinine (0.66-1.25) mg/dL Glucose (74-99) mg/dL POC Glucose (mg/dL) 34 L 31 L 215 H (75-99) mg/dL Hemoglobin A1c (4.0-6.0) % Troponin I (0.000-0.034) ng/mL HDL Cholesterol (40-60) mg/dL 12/18/17 12/18/17 12/18/17 Range/Units 05:43 05:57 10:20 RBC (4.30-5.90) m/uL Hgb (13.0-17.5) gm/dL MCHC (31.0-37.0) g/dL Lymphocytes # (1.0-4.8) k/uL Monocytes # (Manual) (0-1.0) k/uL APTT (22.0-30.0) sec Chloride (98-107) mmol/L Carbon Dioxide (22-30) mmol/L BUN (9-20) mg/dL Creatinine (0.66-1.25) mg/dL Glucose (74-99) mg/dL POC Glucose (mg/dL) 68 L 62 L 152 H (75-99) mg/dL Hemoglobin A1c (4.0-6.0) % Troponin I (0.000-0.034) ng/mL HDL Cholesterol (40-60) mg/dL Microbiology - Last 24 Hours (Table) 12/17/17 18:00 Urine Culture - Preliminary Urine,Clean Catch 12/17/17 00:00 Urine Culture - Preliminary Urine,Voided Assessment and Plan Plan: Assessment: 1. End-stage renal disease status post donor renal allograft in 2010 at [facility] due to diabetic kidney disease. Baseline creatinine near 2.2-2.3. Patient has chronic kidney disease stage IIIB. 2. Acute allograft dysfunction mostly prerenal from vomiting and diarrhea. Creatinine stable at 2.5 today. 3. UTI maintain on antibiotics. Infectious disease following. 4. Diabetes mellitus. 5. Hypertension with chronic kidney disease. 6. Hypomagnesemia from GI losses. Status post placement. Plan: Maintain D5 normal saline at 75 mL an hour. Follow-up urine culture. Maintain Prograf and can resume Myfortic as diarrhea has improved. Avoid nephrotoxins. Follow-up Prograf level. Repeat electrolytes in the morning.
[2017-12-18 11:37] LABS: Glucose,Whole Blood 182 mg/dL (75-99)
[2017-12-18 11:50] VITALS: BMI 21.4
--- NOTE | 2017-12-18 14:09 | P.PN ---
Subjective Progress Note Date: 12/18/17 Mr. Wright is a pleasant 62-year-old male past medical history significant for coronary artery disease s/p angioplasty with drug-eluting stents deployed in the mid and proximal portion of the RCA in 2016, 40% lesion noted in the circumflex, previously stented area noted of the LAD with 40% lesion and stent to the proximal OM. He also has chronic kidney disease s/p transplant 2010 with recent worsening kidney function, hypertension, dyslipidemia, diabetes mellitus, chronic nicotine dependence and depression. He has seen Dr. De Leon in the past February 2016. He hasn't followed up since. We were been asked to see him in consultation for elevated troponin. He presented to the hospital late last night with symptoms of chest pain in the right anterior chest wall. He describes his pain as tight in sensation with radiation through to the back with associated shortness of breath, nausea and vomiting. He states the pain came on all of a sudden while at rest. It lasted for less than 10 minutes. Once he vomited the pain went away. He has had no further symptoms of chest pain since admission. He has also had diarrhea for the previous 3-4 days. He denies dizziness, palpitations, PND or orhopnea. He is also being treated for UTI and nephrology is following. Echocardiogram with Doppler study was performed which revealed an ejection fraction of 55-60%. Patient was seen and examined this morning, denied any chest pain, breathing is overall stable. Objective - Vital Signs Vital signs: Vital Signs Temp 97.6 F 12/18/17 08:55 Pulse 65 12/18/17 11:35 Resp 16 12/18/17 11:35 BP 179/83 12/18/17 11:35 Pulse Ox 99 12/18/17 11:35 Intake & Output 12/17/17 12/18/17 12/18/17 18:59 06:59 18:59 Intake Total 270 83.371 673.707 Balance 270 83.371 673.707 Weight 65.771 kg Intake: Intake, IV Titration 270 83.371 313.707 Amount Heparin Sod,Pork in 0.45% 45 83.371 313.707 NaCl 25,000 unit In 0.45 % NaCl 1 500ml.bag @ 12 UNITS/KG/HR 15.78 mls/hr IV .Q24H [facility] Rx#: [id number] Sodium Chloride 0.9% 1, 225 000 ml @ 75 mls/hr IV . [id number] [facility] Rx#:[id number] Oral 360 Other: Voiding Method Urinal Urinal # Voids 2 2 2 - Exam Blood pressure 164/80 heart rate 74 afebrile maintaining oxygen saturation on room air GENERAL: This is a 62-year-old male in no apparent distress at the time of my examination. HEENT: Head is atraumatic, normocephalic. Pupils are equal, round. Sclerae anicteric. Conjunctivae are clear. Mucous membranes of the mouth are moist. Neck is supple. There is no jugular venous distention. No carotid bruit is heard. LUNGS: Clear to auscultation no wheezes, rales or rhonchi. No chest wall tenderness is noted on palpation or with deep breathing. Diminished bilaterally. HEART: Regular rate and rhythm with systolic ejection murmur heard throughout the precordium most prominent at the base, no rubs or gallops. S1 and S2 heard. ABDOMEN: Soft, nontender. Bowel sounds are heard. No organomegaly noted. EXTREMITIES: No evidence of peripheral edema and no calf tenderness noted. VASCULAR: Radial and dorsalis pedis pulses palpated, no evidence of clubbing. NEUROLOGIC: Patient is awake, alert and oriented x3. - Labs CBC & Chem 7: 12/18/17 03:02 12/18/17 03:02 Labs: Abnormal Lab Results - Last 24 Hours (Table) 12/17/17 12/17/17 12/17/17 Range/Units 09:28 13:32 16:31 Monocytes # (Manual) (0-1.0) k/uL APTT (22.0-30.0) sec Chloride (98-107) mmol/L Carbon Dioxide (22-30) mmol/L BUN (9-20) mg/dL Creatinine (0.66-1.25) mg/dL Glucose (74-99) mg/dL POC Glucose (mg/dL) 289 H (75-99) mg/dL Hemoglobin A1c 9.7 H (4.0-6.0) % Troponin I 0.222 H* (0.000-0.034) ng/mL HDL Cholesterol (40-60) mg/dL 12/17/17 12/17/17 12/17/17 Range/Units 19:56 19:56 20:48 Monocytes # (Manual) (0-1.0) k/uL APTT 41.3 H (22.0-30.0) sec Chloride (98-107) mmol/L Carbon Dioxide (22-30) mmol/L BUN (9-20) mg/dL Creatinine (0.66-1.25) mg/dL Glucose (74-99) mg/dL POC Glucose (mg/dL) 460 H (75-99) mg/dL Hemoglobin A1c (4.0-6.0) % Troponin I 0.125 H* (0.000-0.034) ng/mL HDL Cholesterol (40-60) mg/dL 12/18/17 12/18/17 12/18/17 Range/Units 00:01 03:02 03:02 Monocytes # (Manual) 1.27 H (0-1.0) k/uL APTT (22.0-30.0) sec Chloride 111 H (98-107) mmol/L Carbon Dioxide 21 L (22-30) mmol/L BUN 39 H (9-20) mg/dL Creatinine 2.50 H (0.66-1.25) mg/dL Glucose 33 L* (74-99) mg/dL POC Glucose (mg/dL) 177 H (75-99) mg/dL Hemoglobin A1c (4.0-6.0) % Troponin I (0.000-0.034) ng/mL HDL Cholesterol 38 L (40-60) mg/dL 12/18/17 12/18/17 12/18/17 Range/Units 03:02 03:08 03:09 Monocytes # (Manual) (0-1.0) k/uL APTT 41.2 H (22.0-30.0) sec Chloride (98-107) mmol/L Carbon Dioxide (22-30) mmol/L BUN (9-20) mg/dL Creatinine (0.66-1.25) mg/dL Glucose (74-99) mg/dL POC Glucose (mg/dL) 34 L 31 L (75-99) mg/dL Hemoglobin A1c (4.0-6.0) % Troponin I (0.000-0.034) ng/mL HDL Cholesterol (40-60) mg/dL 12/18/17 12/18/17 12/18/17 Range/Units 03:28 05:43 05:57 Monocytes # (Manual) (0-1.0) k/uL APTT (22.0-30.0) sec Chloride (98-107) mmol/L Carbon Dioxide (22-30) mmol/L BUN (9-20) mg/dL Creatinine (0.66-1.25) mg/dL Glucose (74-99) mg/dL POC Glucose (mg/dL) 215 H 68 L 62 L (75-99) mg/dL Hemoglobin A1c (4.0-6.0) % Troponin I (0.000-0.034) ng/mL HDL Cholesterol (40-60) mg/dL 12/18/17 12/18/17 12/18/17 Range/Units 10:20 10:56 11:36 Monocytes # (Manual) (0-1.0) k/uL APTT 44.0 H (22.0-30.0) sec Chloride (98-107) mmol/L Carbon Dioxide (22-30) mmol/L BUN (9-20) mg/dL Creatinine (0.66-1.25) mg/dL Glucose (74-99) mg/dL POC Glucose (mg/dL) 152 H 182 H (75-99) mg/dL Hemoglobin A1c (4.0-6.0) % Troponin I (0.000-0.034) ng/mL HDL Cholesterol (40-60) mg/dL Microbiology - Last 24 Hours (Table) 12/17/17 00:00 Urine Culture - Preliminary Urine,Voided Gram Neg Bacilli 12/17/17 18:00 Urine Culture - Preliminary Urine,Clean Catch Assessment and Plan Plan: ASSESSMENT AND PLAN #1 Chronic kidney disease s/p transplant with worsening function #2 Hypertension #3 Urinary tract infection #4 History of coronary artery disease currently maintained on dual anti- platelet therapy. #5 Dyslipidemia #6 Hypomagnesemia #7 Chronic nicotine dependence #8 abnormality in troponin, likely secondary to supply demand mismatch. Echo showed normal left ventricular systolic function. #9 diabetes #10 hypothyroidism Plan We will discontinue the IV heparin. Continue current medical therapy with baby aspirin, Lipitor, Plavix, metoprolol. DNP note has been reviewed, I agree with a documented findings and plan of care. Patient was seen and examined.
[2017-12-18] MEDS: HEPARIN SOD,PORK IN 0.45% NACL 25,000 UNIT in 0.45% NACL 1 500ML.BAG IV SCH (14:33)
[2017-12-18 16:26] LABS: Glucose,Whole Blood 217 mg/dL (75-99)
[2017-12-18] MEDS: ATORVASTATIN 80 MG TAB PO SCH (19:25)
[2017-12-18] MEDS: SERTRALINE 100 MG TAB PO SCH (19:26)
[2017-12-18 20:42] LABS: Glucose,Whole Blood 376 mg/dL (75-99)
--- NOTE | 2017-12-18 22:07 | P.PN ---
Subjective Progress Note Date: 12/18/17 This is a 62-year-old Caucasion male with past medical history of DM, insulin dependent, diagnosed in 1981, with diabetic retinopathy, diabetic neuropathy, ESRD status post renal transplant November 2010, multiple TIAs, hypertension, myocardial infarction. Patient gives history that he was treated for C. difficile colitis 2 years ago and that cleared up but he has continued to have ongoing problems with diarrhea that comes and goes. At the worst he has watery stools 40-50 times per day with cramping and on his best days it is soft stool up to 10 times per day. At that point he does not have any pain. He has denied having any blood or tarry stools. He also states he has had ongoing problems with vomiting intermittently for an unknown number of years. He does not know anything that makes it worse or better. He denies any blood or tarriness in his stools. He states he has had workup at [facility] in upper and lower scopes were done and he does not know any findings or diagnoses from this. Regarding urinary tract infection, patient states he does have burning with urination but he is mostly incontinent and does not even realize he is going. He states he is always cold but denies having any fever. He states he has no feeling in his feet and he does have a small lesion on bilateral ankle areas. He states he has some dizziness most of the time. He also has decreased appetite Patient states he came in the hospital regarding chest pain on the right side of his chest along with some shortness of breath and sweats and episode of vomiting. He came into [facility] emergency center for evaluation. His white count was 6.6, he was afebrile, blood sugar was 343 and acetone was positive. Urinalysis was turbid, blood moderate, positive glucose and ketones, leukoesterase large, RBC 17 and Rosa Elena BC is 132 with clumps. Chest x-ray showed no acute cardiopulmonary process. His initial troponin was 0.04 7 repeat was 0.297. Patient received 500 ML's of IV fluids, Zofran, Kefzol and magnesium was replaced while in the emergency center. [facility] He has been seen by Dr. Cast for end-stage renal disease and chronic any disease stage IIIB with acute allograft dysfunction. His BUN was 42 and creatinine 2.57. 12/18/2017 reveals the patient be feeling somewhat better. There is no evidence of any new symptoms. He did have urinary symptoms at admission with dysuria and incontinence. He is more comfortable today. He is not having fevers or chills and his chest pain has improved. Has been evaluated by cardiology. Objective - Vital Signs Vital signs: Vital Signs Temp 98.9 F 12/18/17 20:00 Pulse 60 12/18/17 20:00 Resp 16 12/18/17 20:00 BP 119/74 12/18/17 20:00 Pulse Ox 96 12/18/17 20:00 Intake & Output 12/18/17 12/18/17 12/19/17 06:59 18:59 06:59 Intake Total 83.371 1495.707 Balance 83.371 1495.707 Weight 65.771 kg Intake: Intake, IV Titration 83.371 913.707 Amount Dextrose 5%-0.9% NaCl 1, 400 000 ml @ 50 mls/hr IV . Q20H GOLDY Rx#:[id number] Heparin Sod,Pork in 0.45% 83.371 313.707 NaCl 25,000 unit In 0.45 % NaCl 1 500ml.bag @ 12 UNITS/KG/HR 15.78 mls/hr IV .Q24H GOLDY Rx#: [id number] Magnesium Sulfate-D5w Pmx 200 1 gm In Dextrose/Water 1 100ml.bag @ 100 mls/hr IVPB Q1H GOLDY Rx#: [id number] Oral 582 Other: Voiding Method Urinal Urinal Urinal # Voids 2 1 - Exam Gen.: This is a 62-year-old, thin gentleman. He appears to be in no acute distress. HEENT: Head is atraumatic, normocephalic. Pupils equal, round. Sclerae is anicteric. Oral mucous membranes are moist. Patient is edentulous. No lesions noted in the mouth. NECK: Supple. No JVD. No lymphadenopathy. No thyromegaly. LUNGS: Clear to auscultation. No wheezes or rhonchi. No intercostal retractions. HEART: Regular rate and rhythm. No murmur. ABDOMEN: Soft. Nondistended Bowel sounds are present. No masses. No tenderness. EXTREMITIES: No pedal edema. No calf tenderness. Dorsalis pedis is +2 bilaterally. Patient has a small lesion on the lateral right malleolus and medial left alveolus. To the left arm patient has a fistula noted. NEUROLOGICAL: Patient is awake, alert and oriented x3. The patient is legally blind - Labs CBC & Chem 7: 12/18/17 03:02 12/18/17 03:02 Labs: Abnormal Lab Results - Last 24 Hours (Table) 12/18/17 12/18/17 12/18/17 Range/Units 00:01 03:02 03:02 Monocytes # (Manual) 1.27 H (0-1.0) k/uL APTT (22.0-30.0) sec Chloride 111 H (98-107) mmol/L Carbon Dioxide 21 L (22-30) mmol/L BUN 39 H (9-20) mg/dL Creatinine 2.50 H (0.66-1.25) mg/dL Glucose 33 L* (74-99) mg/dL POC Glucose (mg/dL) 177 H (75-99) mg/dL HDL Cholesterol 38 L (40-60) mg/dL 12/18/17 12/18/17 12/18/17 Range/Units 03:02 03:08 03:09 Monocytes # (Manual) (0-1.0) k/uL APTT 41.2 H (22.0-30.0) sec Chloride (98-107) mmol/L Carbon Dioxide (22-30) mmol/L BUN (9-20) mg/dL Creatinine (0.66-1.25) mg/dL Glucose (74-99) mg/dL POC Glucose (mg/dL) 34 L 31 L (75-99) mg/dL HDL Cholesterol (40-60) mg/dL 12/18/17 12/18/17 12/18/17 Range/Units 03:28 05:43 05:57 Monocytes # (Manual) (0-1.0) k/uL APTT (22.0-30.0) sec Chloride (98-107) mmol/L Carbon Dioxide (22-30) mmol/L BUN (9-20) mg/dL Creatinine (0.66-1.25) mg/dL Glucose (74-99) mg/dL POC Glucose (mg/dL) 215 H 68 L 62 L (75-99) mg/dL HDL Cholesterol (40-60) mg/dL 12/18/17 12/18/17 12/18/17 Range/Units 10:20 10:56 11:36 Monocytes # (Manual) (0-1.0) k/uL APTT 44.0 H (22.0-30.0) sec Chloride (98-107) mmol/L Carbon Dioxide (22-30) mmol/L BUN (9-20) mg/dL Creatinine (0.66-1.25) mg/dL Glucose (74-99) mg/dL POC Glucose (mg/dL) 152 H 182 H (75-99) mg/dL HDL Cholesterol (40-60) mg/dL 12/18/17 12/18/17 Range/Units 16:24 20:41 Monocytes # (Manual) (0-1.0) k/uL APTT (22.0-30.0) sec Chloride (98-107) mmol/L Carbon Dioxide (22-30) mmol/L BUN (9-20) mg/dL Creatinine (0.66-1.25) mg/dL Glucose (74-99) mg/dL POC Glucose (mg/dL) 217 H 376 H (75-99) mg/dL HDL Cholesterol (40-60) mg/dL Microbiology - Last 24 Hours (Table) 12/17/17 00:00 Urine Culture - Preliminary Urine,Voided Gram Neg Bacilli 12/17/17 18:00 Urine Culture - Preliminary Urine,Clean Catch Laboratory Results WBC 9.1 k/uL (3.8-10.6) 12/18/17 03:02 RBC 4.64 m/uL (4.30-5.90) 12/18/17 03:02 Hgb 13.4 gm/dL (13.0-17.5) 12/18/17 03:02 Hct 43.1 % (39.0-53.0) 12/18/17 03:02 MCV 93.1 fL (80.0-100.0) 12/18/17 03:02 MCH 28.8 pg (25.0-35.0) 12/18/17 03:02 MCHC 31.0 g/dL (31.0-37.0) 12/18/17 03:02 RDW 14.1 % (11.5-15.5) 12/18/17 03:02 Plt Count 229 k/uL (150-450) 12/18/17 03:02 Neutrophils % 81 % 12/17/17 13:32 Neutrophils % (Manual) 70 % 12/18/17 03:02 Band Neutrophils % 1 % 12/18/17 03:02 Lymphocytes % 8 % 12/17/17 13:32 Lymphocytes % (Manual) 15 % 12/18/17 03:02 Monocytes % 8 % 12/17/17 13:32 Monocytes % (Manual) 14 % 12/18/17 03:02 Eosinophils % 1 % 12/17/17 13:32 Basophils % 0 % 12/17/17 13:32 Neutrophils # 5.7 k/uL (1.3-7.7) 12/17/17 13:32 Neutrophils # (Manual) 6.40 k/uL (1.3-7.7) 12/18/17 03:02 Lymphocytes # 0.6 k/uL (1.0-4.8) L 12/17/17 13:32 Lymphocytes # (Manual) 1.37 k/uL (1.0-4.8) 12/18/17 03:02 Monocytes # 0.5 k/uL (0-1.0) 12/17/17 13:32 Monocytes # (Manual) 1.27 k/uL (0-1.0) H 12/18/17 03:02 Eosinophils # 0.1 k/uL (0-0.7) 12/17/17 13:32 Basophils # 0.0 k/uL (0-0.2) 12/17/17 13:32 Nucleated RBCs 0 /100 WBC (0-0) 12/18/17 03:02 Manual Slide Review Performed 12/18/17 03:02 Hypochromasia Slight 12/18/17 03:02 PT 10.4 sec (9.0-12.0) 12/17/17 13:32 INR 1.1 (<1.2) 12/17/17 13:32 APTT 44.0 sec (22.0-30.0) H 12/18/17 10:56 Sodium 144 mmol/L (137-145) 12/18/17 03:02 Potassium 4.3 mmol/L (3.5-5.1) 12/18/17 03:02 Chloride 111 mmol/L (98-107) H 12/18/17 03:02 Carbon Dioxide 21 mmol/L (22-30) L 12/18/17 03:02 Anion Gap 12 mmol/L 12/18/17 03:02 BUN 39 mg/dL (9-20) H 12/18/17 03:02 Creatinine 2.50 mg/dL (0.66-1.25) H 12/18/17 03:02 Est GFR (CKD-EPI)AfAm 31 (>60 ml/min/1.73 sqM) 12/18/17 03:02 Est GFR (CKD-EPI)NonAf 27 (>60 ml/min/1.73 sqM) 12/18/17 03:02 Glucose 33 mg/dL (74-99) L* 12/18/17 03:02 POC Glucose (mg/dL) 376 mg/dL (75-99) H 12/18/17 20:41 POC Glu Windows Software Developer ID Christina Burden 12/18/17 20:[address] Glu mg/dL 232 12/17/17 09:28 Hemoglobin A1c 9.7 % (4.0-6.0) H 12/17/17 09:28 Calcium 9.4 mg/dL (8.4-10.2) 12/18/17 03:02 Magnesium 1.7 mg/dL (1.6-2.3) 12/18/17 03:02 Total Bilirubin 0.6 mg/dL (0.2-1.3) 12/16/17 22:29 AST 19 U/L (17-59) 12/16/17 22:29 ALT 28 U/L (21-72) 12/16/17 22:29 Alkaline Phosphatase 122 U/L (38-126) 12/16/17 22:29 Total Creatine Kinase 39 U/L (55-170) L 12/17/17 09:28 CK-MB (CK-2) 3.9 ng/mL (0.0-2.4) H 12/17/17 09:28 CK-MB (CK-2) Rel Index 10.0 12/17/17 09:28 Troponin I 0.125 ng/mL (0.000-0.034) H* 12/17/17 19:56 Total Protein 6.6 g/dL (6.3-8.2) 12/16/17 22: Albumin 4.1 g/dL (3.5-5.0) 12/16/17 22: Triglycerides 53 mg/dL (<150) 12/18/17 03:02 Cholesterol 100 mg/dL (<200) 12/18/17 03:02 LDL Cholesterol, Calc 51 mg/dL (0-99) 12/18/17 03:02 HDL Cholesterol 38 mg/dL (40-60) L 12/18/17 03:02 Amylase 36 U/L (30-110) 12/16/17 23:05 Lipase 16 U/L (23-300) L 12/16/17 23:05 Urine Color Yellow 12/16/17: Urine Appearance Turbid (Clear) 12/16/17: Urine pH 5.5 (5.0-8.0) 12/16/17: Ur Specific [place] 1.013 (1.001-1.035) 12/16/17: Urine Protein 2+ (Negative) H 12/16/17: Urine Glucose (UA) 4+ (Negative) H 12/16/17 22: Urine Ketones Trace (Negative) H 12/16/17: Urine Blood Moderate (Negative) H 12/16/17: Urine Nitrite Positive (Negative) 12/16/17: Urine Bilirubin Negative (Negative) 12/16/17: Urine Urobilinogen <2.0 mg/dL (<2.0) 12/16/17: Ur Leukocyte Esterase Large (Negative) H 12/16/17: Urine RBC 17 /hpf (0-5) H 12/16/17 22: Urine WBC >182 /hpf (0-5) H 12/16/17 22:29 Urine WBC Clumps Many /hpf (None) H 12/16/17: Acetone, Qual Positive (Negative) 12/16/17 23:05 Microbiology 12/17/17 00:00 Urine,Voided Urine Culture - Preliminary Gram Neg Bacilli 12/17/17 18:00 Urine,Clean Catch Urine Culture - Preliminary Assessment and Plan (1) History of renal transplant Current Visit: Yes Status: Acute Code(s): Z94.0 - KIDNEY TRANSPLANT STATUS SNOMED Code(s): 727326644 (2) Urinary tract infection Narrative/Plan: As noted the patient has multiple chronic complaints many complications due to his uncontrolled diabetes. It admission is feeling poorly and likely has evidence of a non-STEMI AL is being followed by cardiology is receiving heparin drip at this time. There is a markedly abnormal urinalysis and urine culture is pending. With prior culture showing Klebsiella and acientobacter in the past antibiotic therapy is being utilized with Rocephin which will be continued until further culture results are available. 12/18/2017 patient is feeling slightly better today. He relates that his dysuria has improved. He is not having significant further fevers or chills. He is not having further chest pain is being followed by cardiology in is that there are no plans for any acute interventions. He remains on a heparin drip. Urine culture is pending we'll continue Rocephin for now until there is further antibiotic data and then plans for outpatient treatment. Current Visit: Yes Status: Acute Code(s): N39.0 - URINARY TRACT INFECTION, SITE NOT SPECIFIED SNOMED Code(s): 06546295
[2017-12-19 05:42] LABS: Glucose,Whole Blood 167 mg/dL (75-99)
[2017-12-19] MEDS: LEVOTHYROXINE 50 MCG TAB PO SCH (06:13)
[2017-12-19] MEDS: PANTOPRAZOLE 40 MG TABLET PO SCH (06:13)
[2017-12-19] MEDS: INSULIN ASPART 100 UNIT/ML 1 ML 10 ML VIAL SQ SCH ×3 (06:51→17:29)
[2017-12-19 07:37] LABS: Calcium 8.6 mg/dL (8.4-10.2); Magnesium 1.8 mg/dL (1.6-2.3); Potassium 4.6 mmol/L (3.5-5.1)
[2017-12-19] MEDS: INSULIN DETEMIR 100 UNIT/ML 10 ML VIAL SQ SCH (08:45)
[2017-12-19] MEDS: ASPIRIN 81 MG PO SCH (08:46)
[2017-12-19] MEDS: CHOLECALCIFEROL 1,000 UNIT TAB PO SCH (08:46)
[2017-12-19] MEDS: METOPROLOL TARTRATE 50 MG TAB PO SCH (08:46)
[2017-12-19] MEDS: TACROLIMUS 1 MG CAP PO SCH (08:46)
[2017-12-19] MEDS: CLOPIDOGREL 75 MG TAB PO SCH (08:46)
[2017-12-19] MEDS: MYCOPHENOLATE SODIUM DR 180 MG TABLET.DR PO SCH (10:28)
[2017-12-19 10:57] VITALS: TEMP 98.6
--- NOTE | 2017-12-19 10:59 | P.PN ---
Subjective Patient is seen in follow-up for acute allograft dysfunction. Patient received a donor renal allograft in 2010 at [facility]. Etiology is diabetic kidney disease. Patient presented with nausea vomiting and diarrhea. The symptoms have improved. He is tolerating oral intake. Admits to good urine output. Hypoglycemia seems to have resolved. Creatinine improved to 2.18 today. Noted to have UTI with urine culture positive for Klebsiella. Maintain on IV Rocephin. Vital signs are stable. General: The patient appeared well nourished and normally developed. HEENT: Head exam is unremarkable. Neck is without jugular venous distension. LUNGS: Lungs are clear to auscultation and percussion. Breath sounds decreased. HEART: Rate and Rhythm are regular. First and second heart sounds normal. No murmurs, rubs or gallops. ABDOMEN: Abdominal exam reveals normal bowel sounds. Non-tender and non- distended. No evidence of peritonitis. EXTREMITITES: No clubbing, cyanosis, or edema. Objective - Vital Signs Vital signs: Vital Signs Temp 98.0 F 12/19/17 04:00 Pulse 60 12/19/17 04:00 Resp 16 12/19/17 04:00 BP 138/77 12/19/17 04:00 Pulse Ox 98 12/18/17 23:42 Intake & Output 12/18/17 12/19/17 12/19/17 18:59 06:59 18:59 Intake Total 1495.707 118 Balance 1495.707 118 Weight 65.771 kg 64.7 kg Intake: Intake, IV Titration 913.707 Amount Dextrose 5%-0.9% NaCl 1, 400 000 ml @ 50 mls/hr IV . Q20H [facility] Rx#:[id number] Heparin Sod,Pork in 0.45% 313.707 NaCl 25,000 unit In 0.45 % NaCl 1 500ml.bag @ 12 UNITS/KG/HR 15.78 mls/hr IV .Q24H [facility] Rx#: [id number] Magnesium Sulfate-D5w Pmx 200 1 gm In Dextrose/Water 1 100ml.bag @ 100 mls/hr IVPB Q1H [facility]Y Rx#: [id number] Oral 582 118 Other: Voiding Method Urinal Urinal # Voids 1 1 - Labs CBC & Chem 7: 12/18/17 03:02 12/19/17 06:22 Labs: Abnormal Lab Results - Last 24 Hours (Table) 12/18/17 12/18/17 12/18/17 Range/Units 10:56 11:36 16:24 APTT 44.0 H (22.0-30.0) sec Chloride (98-107) mmol/L BUN (9-20) mg/dL Creatinine (0.66-1.25) mg/dL Glucose (74-99) mg/dL POC Glucose (mg/dL) 182 H 217 H (75-99) mg/dL 12/18/17 12/19/17 12/19/17 Range/Units 20:41 05:40 06:22 APTT (22.0-30.0) sec Chloride 111 H (98-107) mmol/L BUN 31 H (9-20) mg/dL Creatinine 2.18 H (0.66-1.25) mg/dL Glucose 242 H (74-99) mg/dL POC Glucose (mg/dL) 376 H 167 H (75-99) mg/dL Microbiology - Last 24 Hours (Table) 12/17/17 00:00 Urine Culture - Final Urine,Voided Klebsiella pneumoniae 12/17/17 18:00 Urine Culture - Final Urine,Clean Catch Assessment and Plan Plan: Assessment: 1. End-stage renal disease status post donor renal allograft in 2010 at [facility] due to diabetic kidney disease. Baseline creatinine near 2.2-2.3. Patient has chronic kidney disease stage IIIB. 2. Acute allograft dysfunction mostly prerenal from vomiting and diarrhea. Improved. Creatinine 2.18 today. 3. UTI maintain on antibiotics. Infectious disease following. Urine culture positive for Klebsiella. 4. Diabetes mellitus. 5. Hypertension with chronic kidney disease. Controlled. 6. Hypomagnesemia from GI losses. Status post placement. Plan: Encourage oral intake. Maintain Prograf and Myfortic at current doses. Avoid nephrotoxins. Follow-up Prograf level. Repeat electrolytes in the morning.
[2017-12-19 11:46] LABS: Glucose,Whole Blood 298 mg/dL (75-99)
[2017-12-19] MEDS ORDERED: amLODIPine 5 MG TAB PO SCH (15:15)
[2017-12-19 16:55] LABS: Glucose,Whole Blood 204 mg/dL (75-99)
[2017-12-19 17:42] VITALS: BP 148/77; PULSE 64; RESP 15
[2017-12-19] MEDS ORDERED: INSULIN DETEMIR 100 UNIT/ML 10 ML VIAL SQ SCH (21:00)
--- NOTE | 2017-12-20 05:39 | CDI ---
deannLast Revision, January 2017 Documentation Clarification Form Date: 12/20/2017 5:15:37 AM From: Luz Womack Phone: If you have a question about this query, please contact Deb Choudhury Manager [employer] at [phone] between 8am and 5pm. Admit Date: 12/17/2017 1:22:00 AM Patient Name: Artem Wright Visit Number: [id number] Discharge Date:12/19/17 ATTENTION: The Clinical Documentation Specialists (CDI) and [facility] Coding Staff appreciate your assistance in clarifying documentation. Please respond to the clarification below the line at the bottom and electronically sign. The CDI & [facility] Coding staff will review the response and follow-up if needed. Please note: Queries are made part of the Legal Health Record. If you have any questions, please contact the author of this message via ITS. Dr. Rodriguez, Myocardial infarction is documented in cardiology consult and 12/18 ProgNote describes abnormality in troponin likely secondary to supply demand mismatch. Your Dischg Sum does not list your final diagnoses so cannot determine your clinical opinion about NH. Patient History/Risk Factors: HTN, DM type 1, tobacco, history of alcoholism Clinical Indicators: Chest pain Troponin:.047, .125, .222, .297 Treatment:heparin Consult:cardiology In order to capture the severity of condition and necessary documentation specificity, please clarify if patient had an NH or was it ruled out: Type of Infarction: Type 2 NH NH ruled out STEMI NSTEMI Unable to determine Other Condition, please specify unable to determine MTDD
--- NOTE | 2017-12-25 17:53 | P.DS ---
Providers Date of admission: 12/17/17 01:22 Attending physician: Nate Forde Consults: 12/17/17 01:20 Consult Physician Routine Consulting Provider: Cl Magallon Consult Reason/Comments: Urinary tract infection; Hx renal transplant Do you want consulting provider notified?: Yes 12/17/17 07:00 Consult Physician Routine Consulting Provider: Mahsa Montero Consult Reason/Comments: elevated creatinine Do you want consulting provider notified?: Yes, Notify in am 12/17/17 08:52 Consult Physician Urgent Consulting Provider: Andie Mcclellan Consult Reason/Comments: elevated troponin Do you want consulting provider notified?: Yes Primary care physician: [facility] Hospital Course: This is a pleasant 62 years old female with past medical history of coronary artery disease, history of end stage renal disease was on hemodialysis, status post kidney transplant in 2010, diabetes mellitus, diabetic retinopathy, patient is legally blind. History of hyperlipidemia, hypertension, chronic low back pain. He follow-up with the [facility] Patient presents because of persistent nausea vomiting associated with loose bowel movement. Patient cannot tell how many days have been suffering from these however he denies abdominal pain or chest pain. He vomited about 4 times yesterday and moved his bowels twice yesterday which was loose. There was no blood in his stool or vomit as per patient. No dizziness. Patient feels generally weak and lethargic. On admission patient was found to have evidence of urinary tract infection and dehydration. Also on the labs is showing elevated troponin at 0.047. With elevated creatinine 2.57. Since earlier this years his creatinine was fluctuating between 2.0-2.9. No leukocytosis and his CBC was unremarkable. Chest x-ray: No acute process. Patient was treated with IV antibiotics for his UTI. [employer] evaluated the patient's elevated troponins and has been treated temporarily with IV heparin drip, as well as dual antiplatelet therapy for his history of coronary artery disease. Patient showed interval improvement and his chest pain is completely resolved as 0/10 on the day of discharge as per patient. Heparin drip was discontinued. Patient sugar was on the low side and his Levemir dose was called from 20 to 10 units twice a day. An A1c is 9.7%. Patient acute renal failure is improved significantly with hydration. His nausea vomiting resolved completely. His diarrhea resolved however Myfortic was restarted yesterday and he has 1 semisolid bowel movement since yesterday. However no abdominal pain. Patient returned to his baseline, and he wants to be discharged home. With no urinary signs symptoms gastrointestinal symptoms resolved and/or controlled and no chest pain and no dyspnea. No fever. besides pt was monitored for further 24 hrs because of his uncontrolled sugar yesterday and others and he was stable all time. his BP and DM medications were adjusted prior to dc and his sugar is controlled Patient has been cleared by other consultants including infectious, cardiology and nephrology team Problems and management plan was discussed with the patient and he verbalized understanding and acceptance Found stable and can be discharged home and guarded prognosis, however he needs follow-up as an outpatient. Patient agrees with the appointments and the timing and he states he will follow-up Gen: patient is a AAOx3, no distress CVS: S1-S2, RRR, no murmur Lungs: B/L CTA, no wheezing Abdomen: soft, no distention, no tenderness, positive bowel sounds Extremity: no leg edema or induration time spent more than 35 minutes Patient Condition at Discharge: Stable Plan - Discharge Summary Discharge Rx Participant: Yes New Discharge Prescriptions: New amLODIPine [Norvasc] 5 mg PO DAILY #30 tab Cefuroxime Axetil [Ceftin] 500 mg PO BID 7 Days #14 tab Cholecalciferol [Vitamin D3] 1,000 unit PO DAILY 30 Days #30 tab Insulin Detemir [Levemir] 15 unit SQ BID 30 Days #1 vial Tacrolimus [Prograf] 2 mg PO Q12HR #120 cap amLODIPine [Norvasc] 5 mg PO DAILY #30 tab Cefuroxime Axetil [Ceftin] 500 mg PO BID 7 Days #14 tab Continue Sertraline [Zoloft] 100 mg PO HS Aspirin 81 mg PO DAILY #30 chew Atorvastatin [Lipitor] 80 mg PO HS #30 tab Nitroglycerin Sl Tabs [Nitrostat] 0.4 mg SL Q5M PRN #25 tab PRN Reason: Chest Pain Clopidogrel [Plavix] 75 mg PO DAILY #30 tab Omeprazole [PriLOSEC] 20 mg PO AC-BID Mycophenolate Sodium [Mycophenolic Acid] 720 mg PO BID Levothyroxine Sodium [Synthroid] 50 mcg PO DAILY Metoprolol Tartrate [Lopressor] 25 mg PO BID #60 tab Insulin Aspart [NovoLOG Flexpen] 8 units SQ AC-BRKFST Insulin Aspart [NovoLOG Flexpen] 3 - 4 units SQ AC-LUNCH Insulin Aspart [NovoLOG Flexpen] 3 - 4 units SQ AC-SUPPER Mupirocin [Mupirocin 2%] 1 applic TOPICAL BID Tacrolimus [Prograf] 3 mg PO Q12H Discontinued Insulin Detemir [Levemir] 20 unit SQ BID Discharge Medication List Sertraline [Zoloft] 100 mg PO HS 09/21/13 [History] Aspirin 81 mg PO DAILY #30 chew 09/27/15 [Rx] Atorvastatin [Lipitor] 80 mg PO HS #30 tab 09/27/15 [Rx] Nitroglycerin Sl Tabs [Nitrostat] 0.4 mg SL Q5M PRN #25 tab 09/27/15 [Rx] Clopidogrel [Plavix] 75 mg PO DAILY #30 tab 09/29/15 [Rx] Levothyroxine Sodium [Synthroid] 50 mcg PO DAILY 03/13/17 [History] Mycophenolate Sodium [Mycophenolic Acid] 720 mg PO BID 03/13/17 [History] Omeprazole [PriLOSEC] 20 mg PO AC-BID 03/13/17 [History] Metoprolol Tartrate [Lopressor] 25 mg PO BID #60 tab 05/29/17 [Rx] Insulin Aspart [NovoLOG Flexpen] 3 - 4 units SQ AC-LUNCH 12/17/17 [History] Insulin Aspart [NovoLOG Flexpen] 3 - 4 units SQ AC-SUPPER 12/17/17 [History] Insulin Aspart [NovoLOG Flexpen] 8 units SQ AC-BRKFST 12/17/17 [History] Mupirocin [Mupirocin 2%] 1 applic TOPICAL BID 12/17/17 [History] Tacrolimus [Prograf] 3 mg PO Q12H 12/17/17 [History] Cefuroxime Axetil [Ceftin] 500 mg PO BID 7 Days #14 tab 12/19/17 [Rx] Cefuroxime Axetil [Ceftin] 500 mg PO BID 7 Days #14 tab 12/19/17 [Rx] Cholecalciferol [Vitamin D3] 1,000 unit PO DAILY 30 Days #30 tab 12/19/17 [Rx] Insulin Detemir [Levemir] 15 unit SQ BID 30 Days #1 vial 12/19/17 [Rx] Tacrolimus [Prograf] 2 mg PO Q12HR #120 cap 12/19/17 [Rx] amLODIPine [Norvasc] 5 mg PO DAILY #30 tab 12/19/17 [Rx] amLODIPine [Norvasc] 5 mg PO DAILY #30 tab 12/19/17 [Rx] Follow up Appointment(s)/Referral(s): Quiana De Leon MD [STAFF PHYSICIAN] - 1 Week (Office will call with follow up appointment.) Wilian Cast DO [STAFF PHYSICIAN] - 1 Week (Please call office and schedule follow up appointment during normal business hours. ) [facility] [Primary Care Provider] - 1-2 days (Please call to make your follow up once discharged, per rug cutter.) Patient Instructions/Handouts: Chest Pain (DC), Urinary Tract Infection in Men (DC) Discharge Disposition: HOME SELF-CARE
--- NOTE | 2017-12-28 10:44 | CDI ---
Last Revision, January 2017 Documentation Clarification Form Date: 12/28/2017 10:19:59 AM From: Johana Sidhu RN, CCDS Admit Date: 12/17/2017 1:22:00 AM Patient Name: Artem Wright Visit Number: [id number] Discharge Date: ATTENTION: The Clinical Documentation Specialists (CDI) and [facility] Coding Staff appreciate your assistance in clarifying documentation. Please respond to the clarification below the line at the bottom and electronically sign. The CDI & [facility] Coding staff will review the response and follow-up if needed. Please note: Queries are made part of the Legal Health Record. If you have any questions, please contact the author of this message via ITS. Julio Casas MD Acute allograft dysfunction mostly prerenal from vomiting and diarrhea was documented in nephrology consultation and ongoing progress notes. Patient history/risk factors: End-stage renal disease post donor renal allograft in 2010, Diabetic kidney disease, CKD stage IIIB, Hypertension, Current every day smoker Clinical Indicators: Present with complaints of nausea, vomiting and diarrhea. Nephrology notes that patient baseline creatinine has been in the range of 2.2- 2.3. It was 2.7 on admission. He has good urine output. Lab findings: WBC 6.6, UA: Large leukocyte Esterase, positive nitrite Vital Signs: 102/65 95 18 98.4 Treatment: IV Fluids @ 75 ml/hr Avoid nephrotoxins Repeat electrolytes (monitor) prograf Po, check levels Hold Myfortic x1 day Kefzol IV In your professional opinion, can you please clarify and do you agree with? Acute allograft dysfunctiom mostly prerenal from vomiting and diarrhea Other, please specify Unable to determine Please continue to document in your progress notes and discharge summary in order to capture severity of illness and risk of mortality. Include clinical findings that support your diagnosis. most likely patient had Acute allograft dysfunctiom mostly prerenal from vomiting and diarrhea MTDD
== END 2017-12-19 18:20 | disposition home or self-care (01) | DRG 699 ==
LOC: EC 22:04 → 4SSUR 12-17 01:22 → 3SCARD 12-17 16:28
PROVIDERS: ADMIT Hospitalist; ATTEND Hospitalist
DX: T86.19 Other complication of kidney transplant (principal); N17.9 Acute kidney failure, unspecified; N39.0 Urinary tract infection, site not specified; E83.42 Hypomagnesemia; E86.0 Dehydration; F17.210 Nicotine dependence, cigarettes, uncomplicated; F32.9 Major depressive disorder, single episode, unspecified; G89.29 Other chronic pain; H54.8 Legal blindness, as defined in USA; I12.9 Hypertensive chronic kidney disease with stage 1 through stage 4 chronic kidney disease, or unspecified chronic kidney disease; R07.9 Chest pain, unspecified; E10.22 Type 1 diabetes mellitus with diabetic chronic kidney disease; N18.3 Chronic kidney disease, stage 3 (moderate); Z94.0 Kidney transplant status; Z79.4 Long term (current) use of insulin; B96.1 Klebsiella pneumoniae [K. pneumoniae] as the cause of diseases classified elsewhere; E03.9 Hypothyroidism, unspecified; Z79.02 Long term (current) use of antithrombotics/antiplatelets; Z79.82 Long term (current) use of aspirin; Z79.890 Hormone replacement therapy; Z79.899 Other long term (current) drug therapy; E10.319 Type 1 diabetes mellitus with unspecified diabetic retinopathy without macular edema; E10.40 Type 1 diabetes mellitus with diabetic neuropathy, unspecified; E10.649 Type 1 diabetes mellitus with hypoglycemia without coma; E10.65 Type 1 diabetes mellitus with hyperglycemia; E78.5 Hyperlipidemia, unspecified; I25.10 Atherosclerotic heart disease of native coronary artery without angina pectoris; I25.2 Old myocardial infarction; I35.8 Other nonrheumatic aortic valve disorders; K21.9 Gastro-esophageal reflux disease without esophagitis; K52.9 Noninfective gastroenteritis and colitis, unspecified; R32 Unspecified urinary incontinence; Z81.8 Family history of other mental and behavioral disorders; Z82.49 Family history of ischemic heart disease and other diseases of the circulatory system; Z86.73 Personal history of transient ischemic attack (TIA), and cerebral infarction without residual deficits; Z95.5 Presence of coronary angioplasty implant and graft; F10.21 Alcohol dependence, in remission; K08.109 Complete loss of teeth, unspecified cause, unspecified class; R74.8 Abnormal levels of other serum enzymes; M54.9 Dorsalgia, unspecified
CPT/HCPCS: 36415; 71046; 80048; 80053; 80061; 80197; 81001; 82009; 82150; 82550; 82553; 83036; 83690; 83735; 84484; 85025; 85610; 85730; 87077; 87086; 87186; 93005; 93306; 96365; 96375; 99285

== ENCOUNTER 2018-01-17 10:03 | Emergency (ER) | payer OTHER, MEDICARE ==
[2018-01-17 10:18] VITALS: TEMP 97.6
[2018-01-17] MEDS ORDERED: SODIUM CHLORIDE 0.9% 1,000 ML IV STA (10:43)
[2018-01-17] MEDS ORDERED: IPRATROPIUM-ALBUTEROL 3 ML NEB INHALATION STA (10:45)
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
--- NOTE | 2018-01-17 11:34 | XR ---
EXAMINATION TYPE: XR chest 2V DATE OF EXAM: 01/17/2018 COMPARISON: 12/16/2017 TECHNIQUE: PA and lateral views submitted. HISTORY: Weakness and low blood pressure FINDINGS: The lungs are clear and there is no pneumothorax, pleural effusion, or focal pneumonia. Hyperinflat ion is compatible COPD. Atherosclerotic change aorta. Chronic rib deformities with pleural thickening stable. No overt failure. Use osteopenia. Atherosclerotic change aorta. Heart size normal. IMPRESSION: 1. No acute process. Correlate for COPD.
[2018-01-17 11:44] LABS: Basophils % (A) 0 %; Eosinophils # (A) 0.1 k/uL (0-0.7); Eosinophils % (A) 1 %; HCT 39.7 % (39.0-53.0); HGB 12.1 gm/dL (13.0-17.5); Lymphocytes # (A) 0.8 k/uL (1.0-4.8); Lymphocytes % (A) 11 %; MCH 27.8 pg (25.0-35.0); MCHC 30.4 g/dL (31.0-37.0); MCV 91.5 fL (80.0-100.0); Mean Platelet Volume 7.8; Monocytes # (A) 0.6 k/uL (0-1.0); Monocytes % (A) 8 %; Neutrophils % (A) 78 %; Platelet Count 185 k/uL (150-450); RBC 4.35 m/uL (4.30-5.90); RDW 14.2 % (11.5-15.5); WBC 7.7 k/uL (3.8-10.6)
[2018-01-17 11:51] LABS: Albumin 3.7 g/dL (3.5-5.0); Calcium 9.3 mg/dL (8.4-10.2); Magnesium 1.3 mg/dL (1.6-2.3); Phosphorus 3.7 mg/dL (2.5-4.5); Total Bilirubin 0.5 mg/dL (0.2-1.3); Total Protein 5.9 g/dL (6.3-8.2)
[2018-01-17 11:59] LABS: Partial Thromboplastin Time 26.7 sec (22.0-30.0); Prothrombin Time 9.9 sec (9.0-12.0)
[2018-01-17 12:14] LABS: Creatine Kinase MB 2.8 ng/mL (0.0-2.4); Troponin I 0.012 ng/mL (0.000-0.034)
--- NOTE | 2018-01-17 12:19 | CT ---
EXAMINATION TYPE: CT brain wo con DATE OF EXAM: 01/17/2018 COMPARISON: 05/26/2017 HISTORY: Weakness CT DLP: 1099.4 mGycm Automated exposure control for dose reduction was used. FINDINGS: Atherosclerotic change aorta. Prominent cystic change in the posterior fossa could be related to prom inent cisterna magna or small arachnoid cyst. Hypodensity within the basal ganglia suggestive of remote lacunar infarct. Findings stable from prior exam. Area of low attenuation involving the parietal occipital junction bilaterally is suggestive of previous ischemia. There is a new area of hyperdensity within the right frontal lobe not seen on the prior exam. An area of acute hemorrhage suspected. Measures approximately 7 x 3 mm. IMPRESSION: 1. AREA OF ACUTE HEMORRHAGE INVOLVING THE RIGHT FRONTAL LOBE ANTERIOR TO THE LATERAL VENTRICLE APPEAR S NEW COMPARED TO THE PRIOR EXAM MEASURING 7 X 3 MM 2. DEGENERATIVE AND REMOTE ISCHEMIC CHANGE
[2018-01-17] MEDS ORDERED: LABETALOL 5 MG/ML VIAL MDV IVP STA (12:48)
[2018-01-17 13:01] VITALS: BP 148/81; PULSE 70; RESP 20
== END 2018-01-17 13:00 | disposition other institution (70) ==
LOC: EC 10:03
DX: I61.9 Nontraumatic intracerebral hemorrhage, unspecified (principal); E10.22 Type 1 diabetes mellitus with diabetic chronic kidney disease; I12.9 Hypertensive chronic kidney disease with stage 1 through stage 4 chronic kidney disease, or unspecified chronic kidney disease; N18.9 Chronic kidney disease, unspecified; J44.9 Chronic obstructive pulmonary disease, unspecified; E10.319 Type 1 diabetes mellitus with unspecified diabetic retinopathy without macular edema; E10.40 Type 1 diabetes mellitus with diabetic neuropathy, unspecified; K21.9 Gastro-esophageal reflux disease without esophagitis; I25.2 Old myocardial infarction; I25.10 Atherosclerotic heart disease of native coronary artery without angina pectoris; H54.8 Legal blindness, as defined in USA; F17.200 Nicotine dependence, unspecified, uncomplicated; Z86.14 Personal history of Methicillin resistant Staphylococcus aureus infection; Z94.0 Kidney transplant status; Z79.4 Long term (current) use of insulin; Z79.899 Other long term (current) drug therapy; Z99.2 Dependence on renal dialysis; Z95.5 Presence of coronary angioplasty implant and graft
CPT/HCPCS: 36415; 70450; 71046; 80053; 82550; 82553; 83605; 83735; 84100; 84484; 85025; 85610; 85730; 93005; 94640; 96361; 96374; 99285

== ENCOUNTER 2018-05-28 12:33 | Inpatient (IN) | payer MEDICARE, OTHER ==
[2018-05-28] MEDS ORDERED: ONDANSETRON 4 MG/2 ML VIAL IVP STA (12:48)
[2018-05-28] MEDS ORDERED: SODIUM CHLORIDE 0.9% 2,000 ML IV STA (12:48)
[2018-05-28 13:32] LABS: Basophils % (A) 0 %; Eosinophils # (A) 0.1 k/uL (0-0.7); Eosinophils % (A) 1 %; HCT 41.6 % (39.0-53.0); HGB 12.6 gm/dL (13.0-17.5); Hypochromasia Marked; Lymphocytes # (A) 0.5 k/uL (1.0-4.8); Lymphocytes % (A) 6 %; MCH 28.6 pg (25.0-35.0); MCHC 30.4 g/dL (31.0-37.0); MCV 94.1 fL (80.0-100.0); Mean Platelet Volume 8.3; Monocytes # (A) 0.3 k/uL (0-1.0); Monocytes % (A) 4 %; Neutrophils # (A) 6.8 k/uL (1.3-7.7); Neutrophils % (A) 88 %; Platelet Count 173 k/uL (150-450); RBC 4.42 m/uL (4.30-5.90); RDW 13.9 % (11.5-15.5); WBC 7.7 k/uL (3.8-10.6)
[2018-05-28 13:37] LABS: ALT 25 U/L (21-72); AST 13 U/L (17-59); Alkaline Phosphatase 135 U/L (38-126); Amylase <30 U/L (30-110); Anion Gap 17 mmol/L; Blood Urea Nitrogen 38 mg/dL (9-20); Calcium 9.3 mg/dL (8.4-10.2); Carbon Dioxide 19 mmol/L (22-30); Chloride 101 mmol/L (98-107); Glucose 418 mg/dL (74-99); Lipase 25 U/L (23-300); Potassium 5.2 mmol/L (3.5-5.1); Sodium 137 mmol/L (137-145); Total Bilirubin 0.9 mg/dL (0.2-1.3)
[2018-05-28 13:46] LABS: VBG PH 7.26 (7.31-7.41)
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
--- NOTE | 2018-05-28 13:56 | XR ---
EXAMINATION TYPE: XR ribs RT w pa chest xray DATE OF EXAM: 05/28/2018 COMPARISON: 01/17/2018 TECHNIQUE: PA of the chest and 4 views of the right ribs are submitted. HISTORY: Pain FINDINGS: The lungs are clear and there is no pneumothorax, pleural effusion, or focal pneumonia. Chronic rib deformities on the left noted compatible with previous trauma. There is a deformity involving the lateral margin right fifth rib. There is a deformity involving the anterior lateral margin right seventh, eighth, and ninth rib and s ixth rib. IMPRESSION: 1. Findings are compatible with mildly displaced rib fractures involving the right fifth, seventh, ei ghth, and ninth ribs anterolaterally. Correlate with point tenderness.
[2018-05-28] MEDS ORDERED: METOCLOPRAMIDE 5 MG/ML 2 ML VIAL IVP STA (14:10)
[2018-05-28] MEDS ORDERED: diphenhydrAMINE 50 MG/ML 1 ML VIAL IVP STA (14:10)
[2018-05-28] MEDS: SODIUM CHLORIDE 0.9% 1,000 ML IV SCH ×2 (14:19→17:21)
[2018-05-28] MEDS ORDERED: MORPHINE SULFATE 4 MG/ML SYRINGE IVP PRN (14:48)
[2018-05-28] MEDS ORDERED: ONDANSETRON 4 MG/2 ML VIAL IVP PRN (14:49)
[2018-05-28] MEDS ORDERED: NALOXONE 0.4 MG/ML 1 ML VIAL IV PRN (14:57)
[2018-05-28 15:09] LABS: Glucose,Whole Blood 350 mg/dL (75-99)
[2018-05-28 15:26] LABS: Glucose,Whole Blood 355 mg/dL (75-99)
[2018-05-28] MEDS ORDERED: INSULIN REGULAR 100 UNIT in SODIUM CHLORIDE 0.9% 100 ML IV SCH (15:30)
[2018-05-28 16:22] LABS: Glucose,Whole Blood 313 mg/dL (75-99)
[2018-05-28 16:37] LABS: Appearance,Urine Turbid (Clear); Bilirubin,Urine Negative (Negative); Blood,Urine Small (Negative); Color,Urine Yellow; Glucose,Urine (UA) 3+ (Negative); Ketones,Urine 1+ (Negative); Leukocyte Esterase,Urine Large (Negative); Nitrite,Urine Negative (Negative); PH, Urine 5.5 (5.0-8.0); Protein,Urine 2+ (Negative); Specific Gravity,Urine 1.017 (1.001-1.035); Urobilinogen,Urine <2.0 mg/dL (<2.0); WBC,Urine >182 /hpf (0-5)
[2018-05-28] MEDS: D5-0.45% NACL WITH KCL 20MEQ/L 1,000 ML IV SCH (17:21)
[2018-05-28 17:35] LABS: Potassium 4.4 mmol/L (3.5-5.1)
[2018-05-28 17:46] LABS: Glucose,Whole Blood 279 mg/dL (75-99)
[2018-05-28 18:21] LABS: Glucose,Whole Blood 245 mg/dL (75-99)
[2018-05-28 19:29] LABS: Glucose,Whole Blood 193 mg/dL (75-99)
[2018-05-28 20:26] LABS: Glucose,Whole Blood 160 mg/dL (75-99)
[2018-05-28] MEDS ORDERED: NITROGLYCERIN SL TABS 0.4 MG TAB SUBLINGUAL PRN (21:18)
[2018-05-28 21:20] LABS: Glucose,Whole Blood 116 mg/dL (75-99)
[2018-05-28] MEDS ORDERED: HYDROmorphone 0.5 MG/0.5 ML SYRINGE IVP PRN (21:20)
[2018-05-28] MEDS ORDERED: ALPRAZolam 0.25 MG TAB PO PRN (21:20)
[2018-05-28] MEDS ORDERED: TEMAZEPAM 15 MG CAP PO PRN (21:20)
[2018-05-28 21:46] LABS: Phosphorus 2.7 mg/dL (2.5-4.5); Potassium 4.3 mmol/L (3.5-5.1)
[2018-05-28] MEDS: TACROLIMUS 1 MG CAP PO SCH (22:08)
[2018-05-28] MEDS: PANTOPRAZOLE 40 MG/10 ML VIAL IVP SCH (22:08)
[2018-05-28 22:27] LABS: Glucose,Whole Blood 79 mg/dL (75-99)
--- NOTE | 2018-05-28 23:01 | HP ---
HISTORY AND PHYSICAL DATE OF SERVICE: 05/28/2018 CHIEF COMPLAINTS: Vomiting and fall with rib pain. HISTORY OF PRESENT ILLNESS: This 63-year-old gentleman with a past medical history of multiple medical problems, including CAD, history of CVA, TIA, diabetes mellitus, hemodialysis, history of GERD, hypertension, hyperlipidemia, history of myocardial infarction, history of diabetes mellitus, being followed by [facility] and Dr. Quispe in the outpatient setting, apparently had a fall. The patient hit the right side of his chest and was complaining of severe pain. The patient was admitted to [facility] last year with possible acute gastroenteritis. The patient had hemodialysis and had kidney transplant in 2010. The patient apparently had been vomiting last night. The patient came to [facility] and was found to have evidence of DKA with positive ketones and CO2 of 19. Patient was put on insulin drip and admitted for further evaluation and treatment. There is no history of any fever, rigor or chills. No history of headache, loss of consciousness, seizures. PAST MEDICAL HISTORY: 1. History of CAD. 2. History of CVA, TIA. 3. History of diabetes mellitus with hemodialysis. 4. History of GERD. 5. Hypertension. 6. Hyperlipidemia. 7. History of myocardial infarction. 8. History of renal disease. 9. History of depression. HOME MEDICATIONS: 1. Levemir 12 units subcutaneously b.i.d. 2. Prograf 2 mg b.i.d. 3. Zoloft 100 mg at bedtime. 4. Prilosec 20 mg before meals b.i.d. 5. Nitrostat 0.4 sublingually p.r.n. 6. Mycophenolic acid 720 mg p.o. b.i.d. 7. Reglan 5 mg at bedtime. 8. Synthroid 50 mcg p.o. daily. 9. NovoLog FlexPen 3-4 units before supper, 8 units before breakfast, and 3-4 units before lunch. 10.Plavix 75 mg p.o. daily. 11.Lipitor 80 mg at bedtime. 12.Aspirin 81 mg p.o. daily. ALLERGIES: NONE. FAMILY HISTORY: History of myocardial infarction in the family. SOCIAL HISTORY: History of continued smoking on a daily basis. No history of alcohol intake. REVIEW OF SYSTEMS: ENT: Diminished hearing. Diminished vision. CARDIOVASCULAR SYSTEM: As mentioned earlier. RESPIRATORY SYSTEM: As mentioned earlier. GI: No nausea, vomiting. : As mentioned earlier. NERVOUS SYSTEM: No numbness, weakness. ALLERGY/IMMUNOLOGY: No asthma, hayfever. MUSCULOSKELETAL: As mentioned earlier. HEMATOLOGY/ONCOLOGY: No history of anemia. ENDOCRINE: As mentioned earlier. CONSTITUTIONAL: As mentioned earlier. DERMATOLOGY: Negative. RHEUMATOLOGY: Negative. PSYCHIATRY: As mentioned earlier. PHYSICAL EXAMINATION: Patient alert and oriented x3. Pulse 100, blood pressure 143/80, respirations 16, temperature 98.1, pulse ox 99% on room air. HEENT: Conjunctivae normal. Oral mucosa moist. NECK: No jugular venous distention. No carotid bruit. No lymph node enlargement. CARDIOVASCULAR SYSTEM: S1, S2 muffled. No S3. No S4. RESPIRATORY SYSTEM: Breath sounds diminished at the bases. Bilateral scattered rhonchi and expiratory wheezing also present. ABDOMEN: Soft, non-tender. No mass palpable. LEGS: No edema. No swelling. NERVOUS SYSTEM: Higher functions as mentioned earlier. Moves all 4 limbs. No focal motor or sensory deficit. LYMPHATICS: No lymph node palpable in neck, axillae or groin. Movement of the right chest is painful at this time. Local tenderness also noted. LAB INVESTIGATIONS AT THIS TIME: WBC 7.7, hemoglobin 12.6. VBG is 7.26. Sodium 139, potassium 4.4, creatinine 2.44. Total protein is 6. UA reveals possible UTI. Otherwise, the rib x-ray, which was personally reviewed, showed compatible with mildly displaced rib fractures involving the right fifth, seventh, eighth and ninth ribs anterolaterally. ASSESSMENT: 1. Acute diabetic ketoacidosis with vomiting. 2. Metabolic acidosis secondary to acute diabetic ketoacidosis. 3. Urinary tract infection. 4. Fall and severe right-sided chest pain because of right fifth, seventh, eighth and ninth rib fractures. 5. History of chronic renal failure and renal transplant in 2010. 6. Coronary artery disease. 7. Cerebrovascular accident, transient ischemic attack. 8. Diabetes mellitus, type 2. 9. History of hemodialysis. 10.History of gastroesophageal reflux disease. 11.Hypertension. 12.Hyperlipidemia. 13.History of myocardial infarction. 14.History of hypothyroidism. 15.History of Clostridium difficile colitis. 16.History of coronary artery disease and stent. 17.Depression. 18.Continued ongoing nicotine dependence. 19.Chronic kidney disease, stage III baseline. RECOMMENDATIONS AND DISCUSSION: In this 63-year-old gentleman who presented with multiple complex medical issues, we will monitor the patient closely, continue the current medications, continue with symptomatic treatment. I recommend DKA protocol. Once the anion gap is closed, patient may be transitioned to home dose of insulin, both long- and short-acting. Otherwise, I would recommend continuing with broad-spectrum IV antibiotics. Obtain cultures. Resume the home medications. Monitor creatinine closely. IV fluids. The prognosis is guarded because of multiple complex medical issues. Further recommendations to follow. A copy of this dictation is being forwarded to Dr. Quispe, who is the primary physician. MMODL / IJN: [id number] /
[2018-05-28 23:04] LABS: Glucose,Whole Blood 62 mg/dL (75-99)
[2018-05-28 23:28] LABS: Glucose,Whole Blood 55 mg/dL (75-99)
[2018-05-29] LABS: Glucose,Whole Blood 78 mg/dL (75-99)
[2018-05-29 00:19] LABS: Glucose,Whole Blood 109 mg/dL (75-99)
[2018-05-29] MEDS: D5-0.45% NACL WITH KCL 20MEQ/L 1,000 ML IV SCH (01:24)
[2018-05-29] MEDS: SODIUM CHLORIDE 0.9% 1,000 ML IV SCH ×10 (01:24→21:45)
[2018-05-29] MEDS: LEVOTHYROXINE 50 MCG TAB PO SCH (05:32)
[2018-05-29 06:08] LABS: Glucose,Whole Blood 255 mg/dL (75-99)
[2018-05-29 06:25] LABS: Basophils % (A) 0 %; Eosinophils # (A) 0.1 k/uL (0-0.7); Eosinophils % (A) 1 %; HCT 39.4 % (39.0-53.0); HGB 12.1 gm/dL (13.0-17.5); Hypochromasia Marked; Lymphocytes # (A) 0.9 k/uL (1.0-4.8); Lymphocytes % (A) 10 %; MCH 29.3 pg (25.0-35.0); MCHC 30.7 g/dL (31.0-37.0); MCV 95.4 fL (80.0-100.0); Mean Platelet Volume 8.3; Monocytes # (A) 0.6 k/uL (0-1.0); Monocytes % (A) 6 %; Neutrophils # (A) 7.5 k/uL (1.3-7.7); Neutrophils % (A) 81 %; Platelet Count 175 k/uL (150-450); RBC 4.13 m/uL (4.30-5.90); RDW 14.1 % (11.5-15.5); WBC 9.2 k/uL (3.8-10.6)
[2018-05-29 06:34] LABS: Calcium 9.1 mg/dL (8.4-10.2); Potassium 5.2 mmol/L (3.5-5.1)
[2018-05-29] MEDS ORDERED: NON-FORMULARY DRUG (Omeprazole 20 MG) PO SCH (07:30)
[2018-05-29] MEDS ORDERED: INSULIN DETEMIR (LEVEMIR) 100 UNIT/ML SYR SQ SCH (09:00)
[2018-05-29] MEDS: PANTOPRAZOLE 40 MG/10 ML VIAL IVP SCH ×2 (09:24→21:45)
[2018-05-29] MEDS: MYCOPHENOLATE SODIUM DR 180 MG TABLET.DR PO SCH ×2 (09:29→22:28)
[2018-05-29] MEDS: TACROLIMUS 1 MG CAP PO SCH ×2 (10:49→22:28)
[2018-05-29 11:03] VITALS: BMI 20.8
[2018-05-29 11:41] LABS: Glucose,Whole Blood 307 mg/dL (75-99)
[2018-05-29] MEDS: INSULIN ASPART (NovoLOG) 100 UNIT/ML VIAL SQ SCH ×3 (12:45→21:37)
[2018-05-29 14:37] LABS: Hemoglobin A1C 9.8 % (4.0-6.0)
--- NOTE | 2018-05-29 14:59 | P.GSHP ---
History of Present Illness H&P Date: 05/29/18 Chief Complaint: fall CHIEF COMPLAINT: fall, pain HISTORY OF PRESENT ILLNESS: 63-year-old male who presented to the emergency room with a chief complaint of pain after falling on his right side 2 days ago. CXR reveals rib fractures. Patient also found to be in DKA. He is examined at the bedside with Dr. Reyna. He reports his pain is tolerable. Denies nausea or vomiting. Tolerating oral intake. PAST MEDICAL HISTORY: See list. PAST SURGICAL HISTORY: See list. SOCIAL HISTORY: No illicit drug use. REVIEW OF SYSTEMS: CONSTITUTIONAL: Denies fever or chills. HEENT: Denies blurred vision, vision changes, or eye pain. Denies hemoptysis CARDIOVASCULAR: Reports right sided chest pain. RESPIRATORY: No shortness of breath. GASTROINTESTINAL: Refer to HPI for pertinent findings HEMATOLOGIC: Denies bleeding disorders. GENITOURINARY: Denies any blood in urine. SKIN: Denies pruitis. Denies rash. PHYSICAL EXAM: VITAL SIGNS: Reviewed. GENERAL: Well-developed in no acute distress. HEENT: No sclera icterus. Extraocular movements grossly intact. Moist buccal mucosa. Head is atraumatic, normocephalic. ABDOMEN: Soft. Nondistended. Nontender. NEUROLOGIC: Alert and oriented. Cranial nerves II through XII grossly intact. IMAGING: Chest x-ray: rib fractures involving the fifth, seventh, eighth, and ninth ribs. ASSESSMENT: 1. Trauma, status post fall 2 days ago 2. Rib fractures of right ribs 5, 7, 8, and 9 3. DKA PLAN: Continue medical management per Dr. Forde Dietitian and body sander on consult Pulmonary and nephrology on consult. Appreciate recommendations Pain control Incentive spirometry Activity as tolerated Further recommendations pending patients clinical course Nurse practitioner note has been reviewed by physician. Signing provider agrees with the documented findings, assessment, and plan of care. Past Medical History Past Medical History: Coronary Artery Disease (CAD), Cancer, Chest Pain / Angina, CVA/TIA, Diabetes Mellitus, Dialysis, Eye Disorder, GERD/Reflux, Hyperlipidemia, Hypertension, Myocardial Infarction (NC), Renal Disease, Thyroid Disorder Additional Past Medical History / Comment(s): IDDM, neuropathy bilateral legs/feet, retinopathy bilaterally and is nearly blind, ESRD with past hemo/peritoneal dialysis and in 2010 received kidney transplant, CKD stage II or III, recurrent UTIs, UTI with sepsis, does not completely empty bladder-self caths on occasion, incontinent of urine at times, TIA in 2007, 2013 fractured ribs, vascular dementia per spouse, skin cancer with removal, CDiff 3 times in the past-spouse states to be careful with antibiotic use. Last Myocardial Infarction Date:: 09/24/15 History of Any Multi-Drug Resistant Organisms: None Reported Date of last positivie culture/infection: None MDRO Source:: None Past Surgical History: Heart Catheterization With Stent Additional Past Surgical History / Comment(s): PCI with stents in 2012 and 2015, kidney transplant November 2010, patient has an AV fistula in the left upper extremity, colonoscopy, skin cancer removal , bilateral eye retinal bleeds with surgery, teeth extractions. Past Anesthesia/Blood Transfusion Reactions: No Reported Reaction Date of Last Stent Placement:: 09/2015 Smoking Status: Current every day smoker - Past Family History Brother(s) Additional Family Medical History / Comment(s): Brother had depression and comitted suicide. Father Family Medical History: Diabetes Mellitus Additional Family Medical History / Comment(s): Father lived into his 90s. Mother Family Medical History: Myocardial Infarction (NC) Additional Family Medical History / Comment(s): Mother of a NC at the age of 57yrs. Medications and Allergies Home Medications Medication Instructions Recorded Confirmed Type Sertraline [Zoloft] 100 mg PO HS 09/21/13 05/28/18 History Aspirin 81 mg PO DAILY #30 chew 09/27/15 05/28/18 Rx Atorvastatin [Lipitor] 80 mg PO HS #30 tab 09/27/15 05/28/18 Rx Nitroglycerin Sl Tabs [Nitrostat] 0.4 mg SL Q5M PRN #25 tab 09/27/15 05/28/18 Rx Clopidogrel [Plavix] 75 mg PO DAILY #30 tab 09/29/15 05/28/18 Rx Levothyroxine Sodium [Synthroid] 50 mcg PO DAILY 03/13/17 05/28/18 History Mycophenolate Sodium [Mycophenolic 720 mg PO BID 03/13/17 05/28/18 History Acid] Omeprazole [PriLOSEC] 20 mg PO AC-BID 03/13/17 05/28/18 History Tacrolimus [Prograf] 2 mg PO Q12H 12/17/17 05/28/18 History Insulin Aspart [NovoLOG Flexpen] 3 - 4 unit SQ AC-SUPPER 01/17/18 05/28/18 History Insulin Aspart [NovoLOG Flexpen] 3 - 4 units SQ AC-LUNCH 01/17/18 05/28/18 History Insulin Aspart [NovoLOG Flexpen] 8 units SQ AC-BRKFST 01/17/18 05/28/18 History Insulin Detemir [Levemir Flextouch] 12 units SQ BID 05/28/18 05/28/18 History Metoclopramide HCl [Reglan] 5 mg PO HS 05/28/18 05/28/18 History Allergies Allergy/AdvReac Type Severity Reaction Status Date / Time No Known Allergies Allergy Verified 05/28/18 14:04 Surgical - Exam Vital Signs Temp Pulse Resp BP Pulse Ox 98.0 F 133 H 18 194/103 98 05/28/18 12:35 05/28/18 12:35 05/28/18 12:35 05/28/18 12:35 05/28/18 12:35 Results - Labs 05/29/18 06:07 05/29/18 06:07 Abnormal Lab Results - Last 24 Hours (Table) 05/28/18 05/28/18 05/28/18 Range/Units 15:07 15:24 16:16 RBC (4.30-5.90) m/uL Hgb (13.0-17.5) gm/dL MCHC (31.0-37.0) g/dL Lymphocytes # (1.0-4.8) k/uL Potassium (3.5-5.1) mmol/L Chloride (98-107) mmol/L Carbon Dioxide (22-30) mmol/L BUN (9-20) mg/dL Creatinine (0.66-1.25) mg/dL Glucose (74-99) mg/dL POC Glucose (mg/dL) 350 H 355 H (75-99) mg/dL Hemoglobin A1c (4.0-6.0) % Urine Protein 2+ H (Negative) Urine Glucose (UA) 3+ H (Negative) Urine Ketones 1+ H (Negative) Urine Blood Small H (Negative) Ur Leukocyte Esterase Large H (Negative) Urine WBC >182 H (0-5) /hpf Urine WBC Clumps Many H (None) /hpf 05/28/18 05/28/18 05/28/18 Range/Units 16:21 16:58 17:19 RBC (4.30-5.90) m/uL Hgb (13.0-17.5) gm/dL MCHC (31.0-37.0) g/dL Lymphocytes # (1.0-4.8) k/uL Potassium (3.5-5.1) mmol/L Chloride (98-107) mmol/L Carbon Dioxide 19 L (22-30) mmol/L BUN 40 H (9-20) mg/dL Creatinine 2.44 H (0.66-1.25) mg/dL Glucose 312 H (74-99) mg/dL POC Glucose (mg/dL) 313 H 279 H (75-99) mg/dL Hemoglobin A1c (4.0-6.0) % Urine Protein (Negative) Urine Glucose (UA) (Negative) Urine Ketones (Negative) Urine Blood (Negative) Ur Leukocyte Esterase (Negative) Urine WBC (0-5) /hpf Urine WBC Clumps (None) /hpf 05/28/18 05/28/18 05/28/18 Range/Units 18:17 19:27 20:24 RBC (4.30-5.90) m/uL Hgb (13.0-17.5) gm/dL MCHC (31.0-37.0) g/dL Lymphocytes # (1.0-4.8) k/uL Potassium (3.5-5.1) mmol/L Chloride (98-107) mmol/L Carbon Dioxide (22-30) mmol/L BUN (9-20) mg/dL Creatinine (0.66-1.25) mg/dL Glucose (74-99) mg/dL POC Glucose (mg/dL) 245 H 193 H 160 H (75-99) mg/dL Hemoglobin A1c (4.0-6.0) % Urine Protein (Negative) Urine Glucose (UA) (Negative) Urine Ketones (Negative) Urine Blood (Negative) Ur Leukocyte Esterase (Negative) Urine WBC (0-5) /hpf Urine WBC Clumps (None) /hpf 05/28/18 05/28/18 05/28/18 Range/Units 21:02 21:19 23:02 RBC (4.30-5.90) m/uL Hgb (13.0-17.5) gm/dL MCHC (31.0-37.0) g/dL Lymphocytes # (1.0-4.8) k/uL Potassium (3.5-5.1) mmol/L Chloride 109 H (98-107) mmol/L Carbon Dioxide (22-30) mmol/L BUN 41 H (9-20) mg/dL Creatinine 2.40 H (0.66-1.25) mg/dL Glucose 144 H (74-99) mg/dL POC Glucose (mg/dL) 116 H 62 L (75-99) mg/dL Hemoglobin A1c (4.0-6.0) % Urine Protein (Negative) Urine Glucose (UA) (Negative) Urine Ketones (Negative) Urine Blood (Negative) Ur Leukocyte Esterase (Negative) Urine WBC (0-5) /hpf Urine WBC Clumps (None) /hpf 05/28/18 05/29/18 05/29/18 Range/Units 23:16 00:17 06:07 RBC (4.30-5.90) m/uL Hgb (13.0-17.5) gm/dL MCHC (31.0-37.0) g/dL Lymphocytes # (1.0-4.8) k/uL Potassium (3.5-5.1) mmol/L Chloride (98-107) mmol/L Carbon Dioxide (22-30) mmol/L BUN (9-20) mg/dL Creatinine (0.66-1.25) mg/dL Glucose (74-99) mg/dL POC Glucose (mg/dL) 55 L 109 H (75-99) mg/dL Hemoglobin A1c 9.8 H (4.0-6.0) % Urine Protein (Negative) Urine Glucose (UA) (Negative) Urine Ketones (Negative) Urine Blood (Negative) Ur Leukocyte Esterase (Negative) Urine WBC (0-5) /hpf Urine WBC Clumps (None) /hpf 05/29/18 05/29/18 05/29/18 Range/Units 06:07 06:07 06:07 RBC 4.13 L (4.30-5.90) m/uL Hgb 12.1 L (13.0-17.5) gm/dL MCHC 30.7 L (31.0-37.0) g/dL Lymphocytes # 0.9 L (1.0-4.8) k/uL Potassium 5.2 H (3.5-5.1) mmol/L Chloride (98-107) mmol/L Carbon Dioxide 20 L (22-30) mmol/L BUN 39 H (9-20) mg/dL Creatinine 2.39 H (0.66-1.25) mg/dL Glucose 233 H (74-99) mg/dL POC Glucose (mg/dL) 255 H (75-99) mg/dL Hemoglobin A1c (4.0-6.0) % Urine Protein (Negative) Urine Glucose (UA) (Negative) Urine Ketones (Negative) Urine Blood (Negative) Ur Leukocyte Esterase (Negative) Urine WBC (0-5) /hpf Urine WBC Clumps (None) /hpf 05/29/18 Range/Units 11:20 RBC (4.30-5.90) m/uL Hgb (13.0-17.5) gm/dL MCHC (31.0-37.0) g/dL Lymphocytes # (1.0-4.8) k/uL Potassium (3.5-5.1) mmol/L Chloride (98-107) mmol/L Carbon Dioxide (22-30) mmol/L BUN (9-20) mg/dL Creatinine (0.66-1.25) mg/dL Glucose (74-99) mg/dL POC Glucose (mg/dL) 307 H (75-99) mg/dL Hemoglobin A1c (4.0-6.0) % Urine Protein (Negative) Urine Glucose (UA) (Negative) Urine Ketones (Negative) Urine Blood (Negative) Ur Leukocyte Esterase (Negative) Urine WBC (0-5) /hpf Urine WBC Clumps (None) /hpf Diabetes panel 05/28/18 05/28/18 05/29/18 Range/Units 16:58 21:02 06:07 Sodium 139 139 (137-145) mmol/L Potassium 4.4 4.3 (3.5-5.1) mmol/L Chloride 107 109 H (98-107) mmol/L Carbon Dioxide 19 L 23 (22-30) mmol/L BUN 40 H 41 H (9-20) mg/dL Creatinine 2.44 H 2.40 H (0.66-1.25) mg/dL Glucose 312 H 144 H (74-99) mg/dL Hemoglobin A1c 9.8 H (4.0-6.0) % Calcium (8.4-10.2) mg/dL 05/29/18 Range/Units 06:07 Sodium 137 (137-145) mmol/L Potassium 5.2 H (3.5-5.1) mmol/L Chloride 107 (98-107) mmol/L Carbon Dioxide 20 L (22-30) mmol/L BUN 39 H (9-20) mg/dL Creatinine 2.39 H (0.66-1.25) mg/dL Glucose 233 H (74-99) mg/dL Hemoglobin A1c (4.0-6.0) % Calcium 9.1 (8.4-10.2) mg/dL Calcium panel 05/28/18 05/28/18 05/29/18 Range/Units 16:58 21:02 06:07 Calcium 9.1 (8.4-10.2) mg/dL Phosphorus 3.0 2.7 (2.5-4.5) mg/dL Pituitary panel 05/28/18 05/28/18 05/29/18 Range/Units 16:58 21:02 06:07 Sodium 139 139 137 (137-145) mmol/L Potassium 4.4 4.3 5.2 H (3.5-5.1) mmol/L Chloride 107 109 H 107 (98-107) mmol/L Carbon Dioxide 19 L 23 20 L (22-30) mmol/L BUN 40 H 41 H 39 H (9-20) mg/dL Creatinine 2.44 H 2.40 H 2.39 H (0.66-1.25) mg/dL Glucose 312 H 144 H 233 H (74-99) mg/dL Calcium 9.1 (8.4-10.2) mg/dL Adrenal panel 05/28/18 05/28/18 05/29/18 Range/Units 16:58 21:02 06:07 Sodium 139 139 137 (137-145) mmol/L Potassium 4.4 4.3 5.2 H (3.5-5.1) mmol/L Chloride 107 109 H 107 (98-107) mmol/L Carbon Dioxide 19 L 23 20 L (22-30) mmol/L BUN 40 H 41 H 39 H (9-20) mg/dL Creatinine 2.44 H 2.40 H 2.39 H (0.66-1.25) mg/dL Glucose 312 H 144 H 233 H (74-99) mg/dL Calcium 9.1 (8.4-10.2) mg/dL
--- NOTE | 2018-05-29 15:12 | P.CNPUL ---
History of Present Illness Consult date: 05/29/18 Reason for consult: chest pain History of present illness: Is a 63-year-old male patient was known to me from previous hospitalization. The patient has diabetes mellitus with peripheral neuropathy and difficulty with mobility and balance and the patient has been using a walker to move around. He has had previous episodes of fall. While at home in the bathroom, the patient became unsteady and he fell and he had a blunt trauma to his right chest. He developed chest pain and for that reason he came into the hospital and the patient was found to have fracture on his 6,7,8 and ninth rib on the right. At the same time the patient was found to have a mild anion gap metabolic acidosis and hyperglycemia. He was admitted for further treatment. Note that the patient has been treated in the past for DKA. During this current admission he was given insulin drip for a brief period of time and following that the anion gap closes and the patient was transitioned to long-acting insulin.. He was restarted back on his routine insulin for blood sugar control. His condition is improved. He has no mental status change. His pain is currently 5 out of 10 in severity. Chest x-ray was reviewed and there is no evidence of any pulmonary contusion, hemothorax or pleural effusion. His pain is under good control utilizing a lot of 0.5 mg of the 4 hours on a when necessary basis. He is also on Levemir 12 units twice a day. He is a recipient of a kidney transplantation. He is on a combination of CellCept and Prograf. His creatinine is stable at 2.2.also noted an abnormality in his urine analysis. There is extensive pyuria and urine cultures been sent knowing that the patient has been immunosuppressed and he has a transplanted kidney.out that the patient has been infected with Klebsiella pneumoniae the past and the last culture urine culture was from November 2017. known to have a kidney transplantation, and allograft transplant that was done at [facility] in 2010 with subsequent chronic renal failure, who is maintained on immunosuppressive agents utilizing a combination of CellCept and Prograf. Review of Systems Constitutional: Reports fatigue, Reports lethargy, Reports weakness Eyes: denies blurred vision, denies bulging eye, denies decreased vision Ears: deny: decreased hearing, ear discharge, earache Ears, nose, mouth and throat: Denies headache, Denies sore throat Cardiovascular: Reports decreased exercise tolerance, Reports dyspnea on exertion, right-sided chest pain as the patient had a traumatic injury and fractures on the right Respiratory: Reports dyspneaand chest pain because of traumatic rib cage injury Gastrointestinal: Reports diarrhea, Reports nausea, Reports vomiting Genitourinary: Reports as per HPI Musculoskeletal: Denies myalgias Musculoskeletal: absent: ankle pain, ankle stiffness, ankle swelling Integumentary: Denies pruritus, Denies rash Neurological: has chronicnumbness, has chronic weakness he also has episodes of fall and unsteady gait related to peripheral neuropathy. Psychiatric: Denies anxiety, Denies depression Endocrine: Reports as per HPI, Reports excessive thirst, Reports fatigue, Reports high blood sugars, Reports polydipsia, Reports polyphagia, Reports weight change Hematologic/Lymphatic: Reports as per HPI Allergic/Immunologic: Reports as per HPI Past Medical History Past Medical History: Coronary Artery Disease (CAD), Cancer, Chest Pain / Angina, CVA/TIA, Diabetes Mellitus, Dialysis, Eye Disorder, GERD/Reflux, Hyperlipidemia, Hypertension, Myocardial Infarction (PA), Renal Disease, Thyroid Disorder Additional Past Medical History / Comment(s): IDDM, neuropathy bilateral legs/feet, retinopathy bilaterally and is nearly blind, ESRD with past hemo/peritoneal dialysis and in 2010 received kidney transplant, CKD stage II or III, recurrent UTIs, UTI with sepsis, does not completely empty bladder-self caths on occasion, incontinent of urine at times, TIA in 2007, 2013 fractured ribs, vascular dementia per spouse, skin cancer with removal, CDiff 3 times in the past-spouse states to be careful with antibiotic use. Last Myocardial Infarction Date:: 09/24/15 History of Any Multi-Drug Resistant Organisms: None Reported Date of last positivie culture/infection: None MDRO Source:: None Past Surgical History: Heart Catheterization With Stent Additional Past Surgical History / Comment(s): PCI with stents in 2012 and 2015, kidney transplant November 2010, patient has an AV fistula in the left upper extremity, colonoscopy, skin cancer removal , bilateral eye retinal bleeds with surgery, teeth extractions. Past Anesthesia/Blood Transfusion Reactions: No Reported Reaction Date of Last Stent Placement:: 09/2015 Smoking Status: Current every day smoker - Past Family History Brother(s) Additional Family Medical History / Comment(s): Brother had depression and comi tted suicide. Father Family Medical History: Diabetes Mellitus Additional Family Medical History / Comment(s): Father lived into his 90s. Mother Family Medical History: Myocardial Infarction (PA) Additional Family Medical History / Comment(s): Mother of a PA at the age of 57yrs. Medications and Allergies Home Medications Medication Instructions Recorded Confirmed Type Sertraline [Zoloft] 100 mg PO HS 09/21/13 05/28/18 History Aspirin 81 mg PO DAILY #30 chew 09/27/15 05/28/18 Rx Atorvastatin [Lipitor] 80 mg PO HS #30 tab 09/27/15 05/28/18 Rx Nitroglycerin Sl Tabs [Nitrostat] 0.4 mg SL Q5M PRN #25 tab 09/27/15 05/28/18 Rx Clopidogrel [Plavix] 75 mg PO DAILY #30 tab 09/29/15 05/28/18 Rx Levothyroxine Sodium [Synthroid] 50 mcg PO DAILY 03/13/17 05/28/18 History Mycophenolate Sodium [Mycophenolic 720 mg PO BID 03/13/17 05/28/18 History Acid] Omeprazole [PriLOSEC] 20 mg PO AC-BID 03/13/17 05/28/18 History Tacrolimus [Prograf] 2 mg PO Q12H 12/17/17 05/28/18 History Insulin Aspart [NovoLOG Flexpen] 3 - 4 unit SQ AC-SUPPER 01/17/18 05/28/18 History Insulin Aspart [NovoLOG Flexpen] 3 - 4 units SQ AC-LUNCH 01/17/18 05/28/18 History Insulin Aspart [NovoLOG Flexpen] 8 units SQ AC-BRKFST 01/17/18 05/28/18 History Insulin Detemir [Levemir Flextouch] 12 units SQ BID 05/28/18 05/28/18 History Metoclopramide HCl [Reglan] 5 mg PO HS 05/28/18 05/28/18 History Allergies Allergy/AdvReac Type Severity Reaction Status Date / Time No Known Allergies Allergy Verified 05/28/18 14:04 Physical Exam Vitals: Vital Signs Temp Pulse Pulse Resp BP BP Pulse Ox 05/29/18 12:00 103 H 18 134/63 97 05/29/18 08:00 107 H 18 134/63 97 05/29/18 05:00 98.9 F 89 20 175/89 96 05/29/18 00:30 97.8 F 89 16 167/70 99 05/28/18 19:35 98.4 F 85 16 144/75 98 05/28/18 18:19 98.5 F 93 18 143/78 99 05/28/18 17:22 98.1 F 100 16 143/80 99 Intake and Output 05/29/18 05/29/18 05/29/18 06:59 14:59 22:59 Intake Total 230 Balance 230 Intake: Oral 230 Other: # Voids 2 2 # Bowel Movements 2 Weight 64 kg 64 kg Gen. appearance the patient is a calm and comfortable likely distress. Head exam was generally normal. There was no scleral icterus or corneal arcus. Mucous membranes were moist. Neck was supple and without jugular venous distension, thyromegaly, or carotid bruits. Carotids were easily palpable bilaterally. There was no adenopathy. Lungs were clear to auscultation and percussion, and with normal diaphragmatic excursion. No wheezes or rales were noted. Cardiac exam revealed the PMI to be normally situated and sized. The rhythm was regular and no extrasystoles were noted during several minutes of auscultation. The first and second heart sounds were normal and physiologic splitting of the second heart sound was noted. There were no murmurs, rubs, clicks, or gallops. Abdominal exam revealed normal bowel sounds. The abdomen was soft, non-tender, and without masses, organomegaly, or appreciable enlargement of the abdominal aorta.extremities reveal a left upper extremity functioning AV fistula. No cyanosis or clubbing at this point.Examination of the skin revealed no evidence of significant rashes, suspicious appearing nevi or other concerning lesions. Neurologically the patient is awake and alert and there is no focal neurological deficit at this point. Results - Laboratory Findings CBC and BMP: 05/29/18 06:07 05/29/18 06:07 Abnormal lab findings: Abnormal Labs 05/28/18 05/28/18 05/28/18 13:14 13:14 13:14 RBC Hgb 12.6 L MCHC 30.4 L Lymphocytes # 0.5 L VBG pH 7.26 L VBG HCO3 21 L Potassium 5.2 H Chloride Carbon Dioxide 19 L BUN 38 H Creatinine 2.63 H Glucose 418 H POC Glucose (mg/dL) Hemoglobin A1c AST 13 L Alkaline Phosphatase 135 H Total Protein 6.0 L Amylase <30 L Urine Protein Urine Glucose (UA) Urine Ketones Urine Blood Ur Leukocyte Esterase Urine WBC Urine WBC Clumps 05/28/18 05/28/18 05/28/18 15:07 15:24 16:16 RBC Hgb MCHC Lymphocytes # VBG pH VBG HCO3 Potassium Chloride Carbon Dioxide BUN Creatinine Glucose POC Glucose (mg/dL) 350 H 355 H Hemoglobin A1c AST Alkaline Phosphatase Total Protein Amylase Urine Protein 2+ H Urine Glucose (UA) 3+ H Urine Ketones 1+ H Urine Blood Small H Ur Leukocyte Esterase Large H Urine WBC >182 H Urine WBC Clumps Many H 05/28/18 05/28/18 05/28/18 16:21 16:58 17:19 RBC Hgb MCHC Lymphocytes # VBG pH VBG HCO3 Potassium Chloride Carbon Dioxide 19 L BUN 40 H Creatinine 2.44 H Glucose 312 H POC Glucose (mg/dL) 313 H 279 H Hemoglobin A1c AST Alkaline Phosphatase Total Protein Amylase Urine Protein Urine Glucose (UA) Urine Ketones Urine Blood Ur Leukocyte Esterase Urine WBC Urine WBC Clumps 05/28/18 05/28/18 05/28/18 18:17 19:27 20:24 RBC Hgb MCHC Lymphocytes # VBG pH VBG HCO3 Potassium Chloride Carbon Dioxide BUN Creatinine Glucose POC Glucose (mg/dL) 245 H 193 H 160 H Hemoglobin A1c AST Alkaline Phosphatase Total Protein Amylase Urine Protein Urine Glucose (UA) Urine Ketones Urine Blood Ur Leukocyte Esterase Urine WBC Urine WBC Clumps 05/28/18 05/28/18 05/28/18 21:02 21:19 23:02 RBC Hgb MCHC Lymphocytes # VBG pH VBG HCO3 Potassium Chloride 109 H Carbon Dioxide BUN 41 H Creatinine 2.40 H Glucose 144 H POC Glucose (mg/dL) 116 H 62 L Hemoglobin A1c AST Alkaline Phosphatase Total Protein Amylase Urine Protein Urine Glucose (UA) Urine Ketones Urine Blood Ur Leukocyte Esterase Urine WBC Urine WBC Clumps 05/28/18 05/29/18 05/29/18 23:16 00:17 06:07 RBC Hgb MCHC Lymphocytes # VBG pH VBG HCO3 Potassium Chloride Carbon Dioxide BUN Creatinine Glucose POC Glucose (mg/dL) 55 L 109 H Hemoglobin A1c 9.8 H AST Alkaline Phosphatase Total Protein Amylase Urine Protein Urine Glucose (UA) Urine Ketones Urine Blood Ur Leukocyte Esterase Urine WBC Urine WBC Clumps 05/29/18 05/29/18 05/29/18 06:07 06:07 06:07 RBC 4.13 L Hgb 12.1 L MCHC 30.7 L Lymphocytes # 0.9 L VBG pH VBG HCO3 Potassium 5.2 H Chloride Carbon Dioxide 20 L BUN 39 H Creatinine 2.39 H Glucose 233 H POC Glucose (mg/dL) 255 H Hemoglobin A1c AST Alkaline Phosphatase Total Protein Amylase Urine Protein Urine Glucose (UA) Urine Ketones Urine Blood Ur Leukocyte Esterase Urine WBC Urine WBC Clumps 05/29/18 11:20 RBC Hgb MCHC Lymphocytes # VBG pH VBG HCO3 Potassium Chloride Carbon Dioxide BUN Creatinine Glucose POC Glucose (mg/dL) 307 H Hemoglobin A1c AST Alkaline Phosphatase Total Protein Amylase Urine Protein Urine Glucose (UA) Urine Ketones Urine Blood Ur Leukocyte Esterase Urine WBC Urine WBC Clumps - Diagnostic Findings Chest x-ray: image reviewed Assessment and Plan Plan: 1 fall with traumatic rib cage injury with 4 right-sided fractures 2 chest pain secondary to above 3 high risk for falls due to peripheral neuropathy. 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 No pneumothorax. There is dramatic right- sided fractures. Provide adequate pain control. Incentive spirometer. Urine cultures suspecting an underlying urine checked infection. Resume Imuran suppressive agents. Monitor renal function. DKA has recovered. We'll continue to follow.
[2018-05-29 16:54] LABS: Glucose,Whole Blood 270 mg/dL (75-99)
--- NOTE | 2018-05-29 19:51 | PN ---
PROGRESS NOTE . DATE OF SERVICE: 05/29/2018 This 63-year-old gentleman who was admitted with vomiting and fall with significant rib pain and multiple rib fractures on the right side including 5th, 7th, 8th and 9th rib fractures. The patient also had history of renal transplantation in 2010. The patient also has features of diabetic ketoacidosis which is being closely monitored. Multiple consultants are following the patient closely. Otherwise at this time creatinine is stable at 2.39 and blood sugar is also elevated. CO2 is 20. There is no history of fever, rigors or chills. PAST MEDICAL HISTORY: Reviewed. REVIEW OF SYSTEMS: CARDIOVASCULAR: No angina or palpitations. RESPIRATION: As mentioned earlier. GI as mentioned earlier. : No dysuria. CENTRAL NERVOUS SYSTEM: No numbness or weakness. MEDICATIONS: Reviewed and include: 1. [place] 5 mg q.6h p.r.n. 2. Xanax 0.5 t.i.d. 3. Lipitor 80 mg q.h.s. 4. Dilaudid 0.5 mg q.4 p.r.n. 5. NovoLog. 6. subcu b.i.d. 7. Synthroid. 8. Reglan. 10.Narcan. 11.Zofran. 12.Zoloft. 13.Prograf. 14.Restoril. PHYSICAL EXAM: Patient is alert, oriented x3. Pulse is 103. Blood pressure 134/60, respiration 18, temperature is normal. Pulse ox 97% on room air. HEENT: Conjunctivae normal. NECK: No jugular venous distention. CARDIOVASCULAR: S1, S2 muffled. RESPIRATORY: Breath sounds diminished in the bases. A few scattered rhonchi and crackles. ABDOMEN: Soft, nontender. Legs are no edema. No swelling. CENTRAL NERVOUS SYSTEM: No focal deficits. Examination of the right chest, some tenderness present. LAB STUDIES: WBC 9.2, hemoglobin 12.1. Sodium 139, potassium 3.2, glucose noted. ASSESSMENT: 1. Acute diabetic ketoacidosis, vomiting on presentation. 2. Metabolic acidosis secondary to acute diabetic ketoacidosis. 3. Urinary tract infection. 4. Fall and severe right-sided chest pain because of right 5th, 7th, 8th and 9th rib fractures. 5. History of chronic renal failure and renal transplant 2010. 6. History of coronary artery disease. 7. History of cerebrovascular accident, transient ischemic attack. 8. Diabetes type 2. 9. History of hemodialysis for chronic renal failure. 10.History of gastroesophageal reflux disease. 11.Hypertension. 12.Hyperlipidemia. 13.History of myocardial infarction. 14.History of hypothyroidism. 15.History of C difficile colitis. 16.History of coronary artery disease, stent. 17.Depression. 18.History of continued ongoing nicotine dependence. 19.Chronic kidney stage 3 baseline. RECOMMENDATIONS AND DISCUSSION: Recommend to continue current medications, management and symptomatic treatment. Otherwise, at this time, we will monitor the patient closely. Otherwise, insulin twice daily. Closely monitor. Otherwise, guarded prognosis because of multiple complex medical issues. Further recommendations to follow. MMEDUL / HERMANN: [id number] / YUNG
[2018-05-29 20:56] LABS: Glucose,Whole Blood 114 mg/dL (75-99)
[2018-05-29 21:11] VITALS: RESP 16
[2018-05-29] MEDS: SERTRALINE 100 MG TAB PO SCH (21:45)
[2018-05-29] MEDS: SODIUM CHLORIDE 0.45% 1,000 ML IV SCH (21:45)
[2018-05-29] MEDS: ATORVASTATIN 80 MG TAB PO SCH (21:45)
[2018-05-29] MEDS: METOCLOPRAMIDE 5 MG TAB PO SCH (22:28)
[2018-05-29] MEDS: INSULIN DETEMIR (LEVEMIR) 100 UNIT/ML SYR SQ SCH (22:28)
--- NOTE | 2018-05-29 23:17 | CONS ---
CONSULTATION REASON FOR CONSULT: History of kidney transplant. HISTORY OF PRESENT ILLNESS: The patient is a 63-year-old male with history of chronic kidney disease secondary to chronic allograft nephropathy. The patient has a history of donor renal transplant in 2010 at [facility] for diabetic kidney disease. His serum creatinine baseline has been at about 2.3 to 2.5 mg/dL. He is maintained on Prograf and Myfortic. Patient was admitted to the hospital with complaints of weakness. He did fall and he hit his chest on the right side. He was found to have rib fractures on the right side. Labs showed evidence of hyperglycemia and patient was treated for DKA. He did have an elevated anion gap and metabolic acidosis. A serum acetone was not done. The patient was on insulin drip which is now discontinued. His creatinine has been at 2.39, which is his baseline. PAST MEDICAL HISTORY: Significant for CKD stage IV secondary to chronic allograft nephropathy, renal function stable, however. Coronary artery disease, history of CVA/TIA, diabetes with retinopathy, nephropathy and neuropathy. History of C diff colitis. History of UTI. PAST SURGICAL HISTORY: Coronary stent, donor transplant 2010, previous AV fistula, colonoscopy, eye surgeries, teeth extraction. SOCIAL HISTORY: Positive for smoking. No history of drug abuse or alcohol abuse. MEDICATIONS: Medications at home include Zoloft, aspirin, Lipitor, Plavix, Synthroid, myfortic, Prilosec and Reglan. ALLERGIES: None. PHYSICAL EXAMINATION: Patient is comfortable, awake. He is not in any acute distress. He states he is feeling better. Blood pressure this morning was 134/63, heart rate of 103 per minute, patient is afebrile. Examination of the heart S1, S2. Examination lungs bilateral breath sounds are heard. Decreased breath sounds bases. Abdomen is soft, nontender. Exam of lower extremities shows no evidence of edema. CARDIOVASCULAR SURGICAL TECH exam is grossly intact. LABS: Sodium 137, potassium 5.2, BUN 39, serum creatinine 2.39. UA shows 2+ protein, 3+ glucose, WBCs more than 182. ASSESSMENT: 1. 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 The patient does have proteinuria, however, his current UA is suggestive of urinary tract infection. We will review his office records. We will quantify the proteinuria if it is persistent. 2. History of donor transplant 2010 at [facility]. Maintained on Prograf and CellCept. 3. Hyperglycemia, DKA status post insulin drip. 4. Mild hyperkalemia, currently stable. This can be associated with underlying CKD and use of Prograf. PLAN: Continue IV fluids and encourage increase oral intake. Repeat labs in a.m. Check urine culture. Will quantify the proteinuria if it is persistent. Patient will continue to follow up as outpatient. Thank you for this consultation. We will continue to follow the patient with you during his hospitalization. ASHLY / HERMANN: [id number] / YUNG
[2018-05-30] MEDS: SODIUM CHLORIDE 0.9% 1,000 ML IV SCH ×3 (02:28→05:45)
[2018-05-30] MEDS: LEVOTHYROXINE 50 MCG TAB PO SCH (05:49)
[2018-05-30 06:52] LABS: Glucose,Whole Blood 47 mg/dL (75-99)
[2018-05-30 07:05] LABS: Glucose,Whole Blood 50 mg/dL (75-99)
[2018-05-30 07:27] LABS: Glucose,Whole Blood 75 mg/dL (75-99)
[2018-05-30] MEDS: INSULIN ASPART (NovoLOG) 100 UNIT/ML VIAL SQ SCH ×4 (07:50→21:17)
[2018-05-30] MEDS: INSULIN DETEMIR (LEVEMIR) 100 UNIT/ML SYR SQ SCH ×2 (07:56→21:10)
[2018-05-30] MEDS: PANTOPRAZOLE 40 MG/10 ML VIAL IVP SCH (08:02)
[2018-05-30] MEDS: MYCOPHENOLATE SODIUM DR 180 MG TABLET.DR PO SCH ×2 (08:04→21:18)
[2018-05-30] MEDS: TACROLIMUS 1 MG CAP PO SCH ×2 (08:04→21:19)
[2018-05-30 08:20] LABS: Basophils % (A) 0 %; Eosinophils % (A) 0 %; HCT 39.9 % (39.0-53.0); HGB 11.5 gm/dL (13.0-17.5); Hypochromasia Marked; Lymphocytes # (A) 0.7 k/uL (1.0-4.8); Lymphocytes % (A) 8 %; MCH 27.8 pg (25.0-35.0); MCHC 28.8 g/dL (31.0-37.0); MCV 96.6 fL (80.0-100.0); Mean Platelet Volume 7.6; Monocytes # (A) 0.5 k/uL (0-1.0); Monocytes % (A) 5 %; Neutrophils # (A) 7.3 k/uL (1.3-7.7); Neutrophils % (A) 85 %; Platelet Count 187 k/uL (150-450); RBC 4.13 m/uL (4.30-5.90); RDW 13.9 % (11.5-15.5); WBC 8.5 k/uL (3.8-10.6)
[2018-05-30 08:36] LABS: Potassium 4.1 mmol/L (3.5-5.1)
--- NOTE | 2018-05-30 10:14 | XR ---
EXAMINATION TYPE: XR chest 2V DATE OF EXAM: 05/30/2018 COMPARISON: Prior chest x-ray 05/28/2017 HISTORY: Rib fractures TECHNIQUE: Frontal and lateral views of the chest are obtained. FINDINGS: Patient's rib fractures are not as well seen as on previous exam. There is no pneumothorax or pleural effusion. Cardiac mediastinal silhouette, pulmonary vascularity and neil are stable. No i ncreased lung opacity. IMPRESSION: No acute cardiopulmonary process.
[2018-05-30 11:24] LABS: Glucose,Whole Blood 188 mg/dL (75-99)
--- NOTE | 2018-05-30 14:05 | P.PN ---
Subjective Progress Note Date: 05/30/18 CHIEF COMPLAINT: fall, pain HISTORY OF PRESENT ILLNESS: Patient examined at the bedside. Patient denies nausea or vomiting. Denies abdominal pain. Patient reports he does not want to be here anymore and wants to be discharged home today. PHYSICAL EXAM: VITAL SIGNS: Reviewed. GENERAL: Well-developed in no acute distress. HEENT: No sclera icterus. Extraocular movements grossly intact. Moist buccal mucosa. Head is atraumatic, normocephalic. ABDOMEN: Soft. Nondistended. Nontender. NEUROLOGIC: Alert and oriented. Cranial nerves II through XII grossly intact. IMAGING: Chest x-ray: rib fractures involving the fifth, seventh, eighth, and ninth ribs. ASSESSMENT: 1. Trauma, status post fall 2 days ago 2. Rib fractures of right ribs 5, 7, 8, and 9 3. DKA PLAN: Dietitian and clinical staff educator on consult Pulmonary and nephrology on consult. Appreciate recommendations Pain control Incentive spirometry Activity as tolerated Discharge per medicine Nurse practitioner note has been reviewed by physician. Signing provider agrees with the documented findings, assessment, and plan of care. Objective - Vital Signs Vital signs: Vital Signs Temp 98 F 05/30/18 13:35 Pulse 81 05/30/18 13:35 Resp 16 05/30/18 13:35 BP 141/74 05/30/18 13:35 Pulse Ox 99 05/30/18 13:35 Intake & Output 05/29/18 05/30/18 05/30/18 18:59 06:59 18:59 Intake Total 550 400 Output Total 150 Balance 550 250 Weight 64 kg Intake: Oral 550 400 Output: Urine 150 Other: # Voids 2 1 # Bowel Movements 2 1 - Labs CBC & Chem 7: 05/30/18 07:50 05/30/18 07:50 Labs: Abnormal Lab Results - Last 24 Hours (Table) 05/29/18 05/29/18 05/29/18 Range/Units 06:07 16:20 20:54 RBC (4.30-5.90) m/uL Hgb (13.0-17.5) gm/dL MCHC (31.0-37.0) g/dL Lymphocytes # (1.0-4.8) k/uL Chloride (98-107) mmol/L Carbon Dioxide (22-30) mmol/L BUN (9-20) mg/dL Creatinine (0.66-1.25) mg/dL POC Glucose (mg/dL) 270 H 114 H (75-99) mg/dL Hemoglobin A1c 9.8 H (4.0-6.0) % 05/30/18 05/30/18 05/30/18 Range/Units 06:50 07:03 07:50 RBC 4.13 L (4.30-5.90) m/uL Hgb 11.5 L (13.0-17.5) gm/dL MCHC 28.8 L (31.0-37.0) g/dL Lymphocytes # 0.7 L (1.0-4.8) k/uL Chloride (98-107) mmol/L Carbon Dioxide (22-30) mmol/L BUN (9-20) mg/dL Creatinine (0.66-1.25) mg/dL POC Glucose (mg/dL) 47 L 50 L (75-99) mg/dL Hemoglobin A1c (4.0-6.0) % 05/30/18 05/30/18 Range/Units 07:50 11:20 RBC (4.30-5.90) m/uL Hgb (13.0-17.5) gm/dL MCHC (31.0-37.0) g/dL Lymphocytes # (1.0-4.8) k/uL Chloride 108 H (98-107) mmol/L Carbon Dioxide 21 L (22-30) mmol/L BUN 38 H (9-20) mg/dL Creatinine 2.47 H (0.66-1.25) mg/dL POC Glucose (mg/dL) 188 H (75-99) mg/dL Hemoglobin A1c (4.0-6.0) % Microbiology - Last 24 Hours (Table) 05/30/18 05:30 Urine Culture - Preliminary Urine,Voided
--- NOTE | 2018-05-30 14:16 | PN ---
PROGRESS NOTE Patient is seen for followup for posttransplant care. He was admitted to the hospital with history of fall. He was hyperglycemic and acidotic and status post treatment for DKA. Renal function has seen at baseline. Patient was maintained on IV fluids. He states he is feeling better. He is eating and he wants to go home. No significant diarrhea has been reported. PHYSICAL EXAMINATION: Blood pressure was 139/69, heart rate 80 per minute. Patient is afebrile. Examination of the heart S1, S2. Examination of the lungs, good air entry bilaterally. Abdomen is soft, nontender. Examination of the lower extremities shows no evidence of edema. JAVASCRIPT APPLICATION DEVELOPER exam is grossly intact. LABS: Show sodium 138, potassium 4.1, chloride 108, BUN 38, serum creatinine 0.7, hemoglobin 11.5. ASSESSMENT: 1. Chronic allograft nephropathy, CKD stage IIIB to IV. Renal functions close to baseline. 2. Status post donor transplant. Continue current immunosuppressive medications. Prograf level is pending. 3. DKA, status post insulin drip. 4. Pyuria. Urine cultures is pending. PLAN: Continue current immunosuppressive medications. Patient will need antibiotics at the time of discharge. Will follow up on the urine culture results. He needs to follow up as outpatient and the need for quantify the proteinuria and obtain further workup from outpatient. MMODL / IJN: [id number] /
[2018-05-30 16:42] LABS: Glucose,Whole Blood 142 mg/dL (75-99)
--- NOTE | 2018-05-30 17:01 | PN ---
PROGRESS NOTE DATE OF SERVICE: 05/30/2018 This 63-year-old gentleman who was admitted with acute diabetic ketoacidosis also had vomiting on presentation. The patient also had metabolic acidosis. The patient also had UTI. The patient also had right-sided chest pain. No chest pain. No palpitations. No fever. On exam, alert and oriented x3. Pulse 81, blood pressure 141/74, respirations 16, temperature 98 degrees, pulse ox 99% on room air. HEENT: Conjunctivae normal. NECK: No jugular venous distention. CARDIOVASCULAR SYSTEM: S1, S2 muffled. RESPIRATORY SYSTEM: Breath sounds diminished at the bases. Scattered rhonchi and crackles. ABDOMEN: Soft, non-tender. LEGS: No edema. No swelling. NERVOUS SYSTEM: No focal deficit. Right-sided localized tenderness present. LABS: WBC 8.5, hemoglobin 11.5. ASSESSMENT: 1. Acute diabetic ketoacidosis and vomiting, present on admission. 2. Metabolic acidosis secondary to acute diabetic ketoacidosis. 3. Urinary tract infection, present on admission. 4. Fall and severe right-sided chest pain because of right fifth, seventh, eighth and ninth rib fractures. 5. History of chronic renal failure and renal transplant in 2010. 6. History of coronary artery disease. 7. History of cerebrovascular accident, transient ischemic attack. 8. Diabetes mellitus, type 2. 9. History of hemodialysis for chronic renal failure. 10.History of gastroesophageal reflux disease. 11.Hypertension. 12.Hyperlipidemia. 13.History of myocardial infarction. 14.History of hypothyroidism. 15.History of Clostridium difficile colitis. 16.History of coronary artery disease, stent. 17.Depression. 18.History and continued ongoing nicotine dependence. 19.Chronic kidney disease, stage III, baseline. RECOMMENDATIONS AND DISCUSSION: I recommend to continue current medications, continue with the monitoring, symptomatic treatment. Repeat labs. Continue the rest of the medications. Further recommendations to follow. fish house worker and case management assistant to evaluate the patient for home situation as was possible ECF rehab. Further recommendations to follow. MMODL / IJN: [id number] /
[2018-05-30] MEDS: SODIUM CHLORIDE 0.45% 1,000 ML IV SCH (17:19)
[2018-05-30 19:58] LABS: Glucose,Whole Blood 166 mg/dL (75-99)
[2018-05-30] MEDS: PANTOPRAZOLE 40 MG TABLET PO SCH (20:08)
[2018-05-30] MEDS: ATORVASTATIN 80 MG TAB PO SCH (21:17)
[2018-05-30] MEDS: SERTRALINE 100 MG TAB PO SCH (21:19)
[2018-05-30] MEDS: HYDROcodone/APAP 5-325MG 1 EACH TAB PO PRN (21:19)
[2018-05-30] MEDS: METOCLOPRAMIDE 5 MG TAB PO SCH (21:53)
[2018-05-31] MEDS: LEVOTHYROXINE 50 MCG TAB PO SCH (05:31)
[2018-05-31 06:59] LABS: Glucose,Whole Blood 234 mg/dL (75-99)
[2018-05-31 07:26] VITALS: TEMP 98
[2018-05-31 08:01] LABS: Basophils % (A) 0 %; Eosinophils # (A) 0.1 k/uL (0-0.7); Eosinophils % (A) 2 %; HCT 40.9 % (39.0-53.0); HGB 12.1 gm/dL (13.0-17.5); Hypochromasia Moderate; Lymphocytes # (A) 0.9 k/uL (1.0-4.8); Lymphocytes % (A) 16 %; MCH 28.1 pg (25.0-35.0); MCHC 29.5 g/dL (31.0-37.0); MCV 95.2 fL (80.0-100.0); Mean Platelet Volume 7.7; Monocytes # (A) 0.4 k/uL (0-1.0); Monocytes % (A) 6 %; Neutrophils # (A) 4.3 k/uL (1.3-7.7); Neutrophils % (A) 73 %; Platelet Count 182 k/uL (150-450); RDW 13.9 % (11.5-15.5); WBC 5.8 k/uL (3.8-10.6)
[2018-05-31] MEDS: INSULIN DETEMIR (LEVEMIR) 100 UNIT/ML SYR SQ SCH (08:12)
[2018-05-31] MEDS: HYDROcodone/APAP 5-325MG 1 EACH TAB PO PRN ×2 (08:14→18:44)
[2018-05-31] MEDS: PANTOPRAZOLE 40 MG TABLET PO SCH (08:14)
[2018-05-31] MEDS: MYCOPHENOLATE SODIUM DR 180 MG TABLET.DR PO SCH (08:14)
[2018-05-31] MEDS: TACROLIMUS 1 MG CAP PO SCH (08:14)
[2018-05-31] MEDS: INSULIN ASPART (NovoLOG) 100 UNIT/ML VIAL SQ SCH ×2 (08:16→11:58)
[2018-05-31 08:32] LABS: Calcium 8.8 mg/dL (8.4-10.2); Potassium 4.5 mmol/L (3.5-5.1)
[2018-05-31 09:32] VITALS: PULSE 85
[2018-05-31 11:15] LABS: Glucose,Whole Blood 226 mg/dL (75-99)
[2018-05-31] MEDS: SODIUM CHLORIDE 0.45% 1,000 ML IV SCH (11:57)
--- NOTE | 2018-05-31 14:36 | P.PN ---
Subjective Progress Note Date: 05/31/18 CHIEF COMPLAINT: fall, pain HISTORY OF PRESENT ILLNESS: Patient examined at the bedside. Patient denies nausea or vomiting. Denies abdominal pain. Patient reports he does not want to be here anymore and wants to be discharged home. PHYSICAL EXAM: VITAL SIGNS: Reviewed. GENERAL: Well-developed in no acute distress. HEENT: No sclera icterus. Extraocular movements grossly intact. Moist buccal mucosa. Head is atraumatic, normocephalic. ABDOMEN: Soft. Nondistended. Nontender. NEUROLOGIC: Alert and oriented. Cranial nerves II through XII grossly intact. IMAGING: Chest x-ray: rib fractures involving the fifth, seventh, eighth, and ninth ribs. ASSESSMENT: 1. Trauma, status post fall 2 days ago 2. Rib fractures of right ribs 5, 7, 8, and 9 3. DKA PLAN: Pain control Incentive spirometry Activity as tolerated Discharge per medicine. we will sign off. Please reconsult if needed. Nurse practitioner note has been reviewed by physician. Signing provider agrees with the documented findings, assessment, and plan of care. Objective - Vital Signs Vital signs: Vital Signs Temp 98 F 05/31/18 07:00 Pulse 85 05/31/18 09:31 Resp 16 05/31/18 07:00 BP 165/88 05/31/18 09:31 Pulse Ox 98 05/31/18 07:00 Intake & Output 05/30/18 05/31/18 05/31/18 18:59 06:59 18:59 Intake Total 586 700 650 Output Total 150 Balance 436 700 650 Weight 64 kg Intake: Intake, IV Titration 700 Amount Sodium Chloride 0.45% 1, 700 000 ml @ 50 mls/hr IV . Q20H [facility] Rx#:[id number] Oral 586 650 Output: Urine 150 Other: Voiding Method Toilet # Voids 2 4 - Labs CBC & Chem 7: 05/31/18 07:40 05/31/18 07:40 Labs: Abnormal Lab Results - Last 24 Hours (Table) 05/30/18 05/30/18 05/31/18 Range/Units 16:41 19:57 06:56 Hgb (13.0-17.5) gm/dL MCHC (31.0-37.0) g/dL Lymphocytes # (1.0-4.8) k/uL Chloride (98-107) mmol/L BUN (9-20) mg/dL Creatinine (0.66-1.25) mg/dL Glucose (74-99) mg/dL POC Glucose (mg/dL) 142 H 166 H 234 H (75-99) mg/dL 05/31/18 05/31/18 05/31/18 Range/Units 07:40 07:40 11:12 Hgb 12.1 L (13.0-17.5) gm/dL MCHC 29.5 L (31.0-37.0) g/dL Lymphocytes # 0.9 L (1.0-4.8) k/uL Chloride 108 H (98-107) mmol/L BUN 33 H (9-20) mg/dL Creatinine 2.06 H (0.66-1.25) mg/dL Glucose 249 H (74-99) mg/dL POC Glucose (mg/dL) 226 H (75-99) mg/dL Microbiology - Last 24 Hours (Table) 05/30/18 05:30 Urine Culture - Preliminary Urine,Voided Gram Neg Bacilli
[2018-05-31 17:16] VITALS: BP 150/76
--- NOTE | 2018-05-31 19:41 | PN ---
PROGRESS NOTE Patient is seen for followup for chronic kidney disease and chronic allograft nephropathy post kidney transplant. He is currently doing well. He was admitted with DKA, which has resolved. There are plans for possible discharge today. PHYSICAL EXAMINATION: Blood pressure was 165/88, heart rate of 80 per minute. He is afebrile. Examination of the heart S1, S2. Examination of the lungs bilateral breath sounds are heard. Abdomen is soft, nontender. Exam of lower extremities shows no evidence of edema. STORE [employer]NAG[employer]EE exam is grossly intact. LAB: Shows sodium 139, potassium 4.5, BUN 33, serum creatinine 2.06, hemoglobin 12.1 g/dL. ASSESSMENT: 1. Acute kidney injury, prerenal, currently improved. 2. 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 3. Status post donor transplant, maintained on Prograf and CellCept, which we will continue. 4. Diabetic ketoacidosis now resolved. 5. Status post fall with rib fractures, controlled pain. PLAN: Patient is stable for discharge. Follow up as outpatient in about 1-2 weeks. MMODL / IJN: [id number] /
--- NOTE | 2018-06-01 07:06 | DS ---
DISCHARGE SUMMARY DATE OF SERVICE: 05/31/2018. FINAL DIAGNOSES: 1. Acute diabetic ketoacidosis with vomiting, present on admission. 2. Metabolic acidosis secondary to acute diabetic ketoacidosis. 3. Urinary tract infection, present on admission. 4. Fall and severe right-sided chest pain because of right 5th, 7th, 8th and 9th rib fractures. 5. History of chronic renal failure, renal transplant in 2010. 6. History of coronary artery disease. 7. History of cerebrovascular accident, transient ischemic attack. 8. Diabetes mellitus type 2. 9. History of hemodialysis for chronic renal failure. 10.History of gastroesophageal reflux disease. 11.Hypertension. 12.Hyperlipidemia. 13.History of myocardial infarction. 14.History of hypothyroidism. 15.History of C difficile colitis. 16.History of coronary artery disease, stent. 17.Depression. 18.History of continued ongoing nicotine dependence. 19.Chronic kidney disease stage 3, baseline. DISCHARGE DISPOSITION: The patient is being discharged in stable condition with a guarded prognosis. HISTORY OF PRESENT ILLNESS: This 63-year-old gentleman with a past medical history of multiple medical problems admitted with acute diabetic ketoacidosis, metabolic acidosis and a significant chest pain. Rib fractures are noted and patient was treated symptomatically. Surgery saw the patient as well as Nephrology. The creatinine stabilized around 2.06. The patient is feeling much better. Patient is being discharged in stable condition with guarded prognosis. On exam, vital signs are stable. Cardiovascular is S1, S2. Respiratory: A few scattered rhonchi. Abdomen soft. No tenderness. Central nervous system: No focal deficits. DISCHARGE DIET: Cardiac diet. FOLLOWUP: Activity limited until follow up. Follow up with the [facility] with Dr. Quispe in 1-2 days. Follow up with surgery and nephrology is recommended. MEDICATIONS ARE: 1. Mycophenolic acid 17 mg p.o. b.i.d. 2. NovoLog FlexPen 3-4 units a.c. lunch and 8 units before breakfast 3-4 units a.c. supper. 3. Prilosec 20 mg a.c. b.i.d. 4. Prograf 2 mg p.o. b.i.d. 5. Reglan 5 mg q.h.s. 6. Synthroid 50 mcg p.o. daily. 7. Zoloft 100 mg p.o. q.h.s. 8. Aspirin 81 mg p.o. daily. 9. Ceftin 500 mg p.o. daily for 3 days. 10.Levemir 20 units subcu b.i.d. 11.Lipitor 80 mg p.o. q.h.s. 12.Nitrostat 0.4 mg p.r.n. 13.[place] 5 mg q.6h p.r.n. 14.Plavix 75 mg p.o. daily. 15.Protonix 40 mg p.o. daily. Accu-Daina aArturcArtur and q.h.s. and results to Dr. Quispe. Once again the patient is being discharged in stable condition with guarded prognosis. MMODL / IJN: [id number] /
== END 2018-05-31 18:49 | disposition home or self-care (01) | DRG 638 ==
LOC: EC 12:33 → 3SCARD 14:56 → 4SSUR 05-29 21:31
PROVIDERS: ADMIT Internal Medicine; ATTEND Internal Medicine
DX: E10.10 Type 1 diabetes mellitus with ketoacidosis without coma (principal); I12.0 Hypertensive chronic kidney disease with stage 5 chronic kidney disease or end stage renal disease; N17.9 Acute kidney failure, unspecified; N39.0 Urinary tract infection, site not specified; S22.41XA Multiple fractures of ribs, right side, initial encounter for closed fracture; T86.19 Other complication of kidney transplant; N18.4 Chronic kidney disease, stage 4 (severe); E10.319 Type 1 diabetes mellitus with unspecified diabetic retinopathy without macular edema; E87.5 Hyperkalemia; E10.42 Type 1 diabetes mellitus with diabetic polyneuropathy; E10.22 Type 1 diabetes mellitus with diabetic chronic kidney disease; E03.9 Hypothyroidism, unspecified; E78.5 Hyperlipidemia, unspecified; E86.0 Dehydration; F17.200 Nicotine dependence, unspecified, uncomplicated; F32.9 Major depressive disorder, single episode, unspecified; H54.8 Legal blindness, as defined in USA; I25.10 Atherosclerotic heart disease of native coronary artery without angina pectoris; I25.2 Old myocardial infarction; K21.9 Gastro-esophageal reflux disease without esophagitis; G89.29 Other chronic pain; R26.9 Unspecified abnormalities of gait and mobility; M54.9 Dorsalgia, unspecified; Z79.02 Long term (current) use of antithrombotics/antiplatelets; Z79.4 Long term (current) use of insulin; Z79.82 Long term (current) use of aspirin; Z79.890 Hormone replacement therapy; Z79.899 Other long term (current) drug therapy; Z95.5 Presence of coronary angioplasty implant and graft; Z87.440 Personal history of urinary (tract) infections; Z86.73 Personal history of transient ischemic attack (TIA), and cerebral infarction without residual deficits; Z86.19 Personal history of other infectious and parasitic diseases; Z85.828 Personal history of other malignant neoplasm of skin; Z83.3 Family history of diabetes mellitus; Z82.49 Family history of ischemic heart disease and other diseases of the circulatory system; Z81.8 Family history of other mental and behavioral disorders; W19.XXXA Unspecified fall, initial encounter; Y83.0 Surgical operation with transplant of whole organ as the cause of abnormal reaction of the patient, or of later complication, without mention of misadventure at the time of the procedure
CPT/HCPCS: 36415; 71046; 80048; 80051; 80053; 80197; 81001; 82009; 82150; 82565; 82803; 82947; 83036; 83605; 83690; 84100; 84484; 84520; 85025; 87077; 87086; 87186; 93005; 96361; 96374; 96375; 99285

== ENCOUNTER 2018-09-12 07:54 | Day surgery (SDC) | payer MEDICARE, OTHER ==
[2018-09-11 08:20] VITALS: BMI 21.4
[~2018-09-12 07:54] MED LIST: LACTATED RINGERS 1,000 ML IV SCH
[2018-09-12 08:29] LABS: Glucose,Whole Blood 71 mg/dL (75-99)
[2018-09-12] MEDS ORDERED: LIDOCAINE 1% 20 ML VIAL (10MG/ML) FOR IV START INTRADERMA ONE (08:33)
[2018-09-12 08:43] VITALS: TEMP 97.5
[2018-09-12] MEDS ORDERED: DEXTROSE 50% SYRINGE 50 ML IVP ONE (08:47)
[2018-09-12 09:07] LABS: Glucose,Whole Blood 98 mg/dL (75-99)
[2018-09-12] MEDS ORDERED: ONDANSETRON 4 MG/2 ML VIAL ONE (09:42)
[2018-09-12] MEDS ORDERED: PROPOFOL 10 MG/ML 20 ML VIAL IV ONE (09:42)
[2018-09-12] MEDS ORDERED: fentaNYL (PF) 50 MCG/ML 2 ML AMP ONE (09:42)
[2018-09-12] MEDS ORDERED: LIDOCAINE 1% INJ 10MG/ML (20 ML MDV) ONE (09:42)
--- NOTE | 2018-09-12 10:16 | P.PCN ---
Date of Procedure: 09/12/18 Description of Procedure: BRIEF HISTORY: 63-year-old male presenting for outpatient EGD. Patient is been seen in the outpatient gastroenterology clinic where he complained of nausea and vomiting. Reported that this was occurring throughout the day. Patient had been on omeprazole therapy for the past 10 years. Also reports chronic diarrhea. Last colonoscopy was in 2015 or 2016 and was reported as normal. He was having diarrhea at that time also. He states that the vomiting is getting somewhat better but feels he still needs to vomit immediately following smoking cigarettes. Has tried Reglan in the past which she did not feel helped. 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 He has had infection with Clostridium difficile 3-4 times in the past 10 years. Also has a history of diabetes mellitus which he reports he has had prolonged member, currently on insulin therapy he reports that his sugars do run high. PROCEDURE PERFORMED: Esophagogastroduodenoscopy with biopsy. PREOPERATIVE DIAGNOSIS: Nausea and vomiting, GERD. ESTIMATED BLOOD LOSS: Minimal. IV sedation per anesthesia. PROCEDURE: After informed consent was obtained, the patient was brought into the endoscopy unit. IV sedation was administered by Anesthesia under continuous monitoring. Initially the Olympus GIF-190 video endoscope was inserted into the mouth. Esophagus intubated without any difficulty. It was gradually advanced into the stomach and duodenum and carefully examined. The bulb and the second part of the duodenum appeared normal, with biopsies taken. The scope at this time was withdrawn to the stomach, adequately insufflated with air, and upon careful examination, visualized mucosal of the antrum, body, cardia and the fundus appeared normal, however there was a large amount of liquid and solid debris throughout the patient's stomach consistent with diabetic gastroparesis which prohibited complete visualization of the mucosa. Moderate gastritis of the antrum and body with erythema and few superficial erosions with antrum and body biopsied. The scope was then withdrawn into the esophagus. The GE junction was located at 39 cm from the incisors. The esophagus appeared normal. There were no erosions or ulcerations seen and the patient tolerated the procedure well. IMPRESSION: 1. Large amount of retained food throughout the stomach, suggestive of gastroparesis. 2. Moderate gastritis antrum and body, biopsied. 3. Duodenal biopsies. RECOMMENDATIONS: The findings of this examination were discussed with the patient and his . Would recommend tight glycemic control. Continue omeprazole therapy. Avoid NSAID use. Patient may benefit from referral to dietitian, have discussed low fiber low residual diet in the setting of likely gastroparesis. Await pathology from biopsies.
[2018-09-12 10:19] VITALS: RESP 18
[2018-09-12 10:27] LABS: Glucose,Whole Blood 117 mg/dL (75-99)
[2018-09-12 10:43] VITALS: BP 167/79; PULSE 85
== END 2018-09-12 11:19 | disposition home or self-care (01) ==
LOC: ORWHC2ENDO 07:54
PROVIDERS: ATTEND Internal Medicine
DX: K29.50 Unspecified chronic gastritis without bleeding (principal); K21.9 Gastro-esophageal reflux disease without esophagitis; K52.9 Noninfective gastroenteritis and colitis, unspecified; F17.210 Nicotine dependence, cigarettes, uncomplicated; E11.22 Type 2 diabetes mellitus with diabetic chronic kidney disease; I12.9 Hypertensive chronic kidney disease with stage 1 through stage 4 chronic kidney disease, or unspecified chronic kidney disease; N18.4 Chronic kidney disease, stage 4 (severe); Z94.0 Kidney transplant status; Z79.4 Long term (current) use of insulin; E78.5 Hyperlipidemia, unspecified; Z79.890 Hormone replacement therapy; Z79.02 Long term (current) use of antithrombotics/antiplatelets; Z79.82 Long term (current) use of aspirin; Z79.899 Other long term (current) drug therapy
CPT/HCPCS: 88305; 43239; J2405; J2001; J3010; J2704

== ENCOUNTER 2019-01-18 21:43 | Inpatient (IN) | payer BC, MEDICARE, OTHER ==
[2019-01-18 22:07] LABS: Glucose,Whole Blood 322 mg/dL (75-99)
[2019-01-18] MEDS ORDERED: SODIUM CHLORIDE 0.9% 1,000 ML IV ONE (22:33)
[2019-01-18] MEDS ORDERED: ACETAMINOPHEN TAB 500 MG TAB PO STA (22:33)
[2019-01-18] MEDS ORDERED: SODIUM CHLORIDE 0.9% 1,000 ML IV SCH (22:45)
[2019-01-18 22:49] LABS: Basophils % (A) 0 %; Eosinophils % (A) 0 %; HCT 39.8 % (39.0-53.0); HGB 12.1 gm/dL (13.0-17.5); Hypochromasia Moderate; Lymphocytes # (A) 0.5 k/uL (1.0-4.8); Lymphocytes % (A) 5 %; MCH 29.4 pg (25.0-35.0); MCHC 30.4 g/dL (31.0-37.0); MCV 96.8 fL (80.0-100.0); Mean Platelet Volume 8.5; Monocytes # (A) 0.6 k/uL (0-1.0); Monocytes % (A) 7 %; Neutrophils # (A) 7.5 k/uL (1.3-7.7); Neutrophils % (A) 87 %; Platelet Count 180 k/uL (150-450); RBC 4.11 m/uL (4.30-5.90); RDW 13.7 % (11.5-15.5); WBC 8.6 k/uL (3.8-10.6)
[2019-01-18 22:54] LABS: Albumin 3.7 g/dL (3.5-5.0); Calcium 8.5 mg/dL (8.4-10.2); Potassium 4.4 mmol/L (3.5-5.1); Total Bilirubin 0.8 mg/dL (0.2-1.3); Total Protein 5.5 g/dL (6.3-8.2)
[2019-01-18] MEDS ORDERED: INSULIN REGULAR 100 UNIT in SODIUM CHLORIDE 0.9% 100 ML IV SCH (23:15)
[2019-01-18 23:22] LABS: Appearance,Urine Turbid (Clear); Bacteria,Urine Many /hpf; Bilirubin,Urine Negative (Negative); Blood,Urine Moderate (Negative); Color,Urine Yellow; Glucose,Urine (UA) 2+ (Negative); Leukocyte Esterase,Urine Large (Negative); Mucus,Urine Occasional /hpf; Nitrite,Urine Negative (Negative); Protein,Urine 2+ (Negative); RBC,Urine 15 /hpf (0-5); Specific Gravity,Urine 1.018 (1.001-1.035); Urobilinogen,Urine <2.0 mg/dL (<2.0)
[2019-01-18 23:29] LABS: Ketones,Urine 2+ (Negative)
[2019-01-18] MEDS ORDERED: cefTRIAXone IN SWFI 1,000 MG/10 ML SYRINGE IVP STA (23:30)
[2019-01-19 00:04] LABS: Glucose,Whole Blood 360 mg/dL (75-99)
--- NOTE | 2019-01-19 00:31 | ED ---
Nausea/Vomiting/Diarrhea HPI - General Chief complaint: Nausea/Vomiting/Diarrhea Stated complaint: DKA Time Seen by Provider: 01/18/19 21:50 Source: EMS Mode of arrival: EMS Limitations: no limitations - History of Present Illness Initial comments: The patient is a 63-year-old male with past medical history of diabetes, renal failure with renal transplant who presents emergency department with reported 2 days of nausea and vomiting. He states that he has been unable to eat any food. Today he tried to get some however did have several episodes of vomiting afterwards. When questioning the patient whether this has happened to him before he denies this however review of his chart shows that he has been in DKA before. He denies any sick contacts or recent travel. Denies eating any tainted foods. He has been unable to take his medications. He states he did take his insulin today. He denies any abdominal pain flank pain. No dysuria, hematuria. The patient does straight cath himself because of a neurogenic bladder. He denies any hematochezia. No chest pain or shortness of breath. Does admit to mild cough. There are no other alleviating, precipitating or modifying factors - Related Data Home Medications Medication Instructions Recorded Confirmed Sertraline [Zoloft] 100 mg PO HS 09/21/13 01/19/19 Levothyroxine Sodium [Synthroid] 50 mcg PO DAILY 03/13/17 01/19/19 Mycophenolate Sodium [Mycophenolic 720 mg PO BID 03/13/17 01/19/19 Acid] Omeprazole [PriLOSEC] 20 mg PO AC-BID 03/13/17 01/19/19 Tacrolimus [Prograf] 3 mg PO Q12H 12/17/17 01/19/19 Insulin Aspart [NovoLOG Flexpen] 0 unit SQ TID PRN 01/17/18 01/19/19 Insulin Detemir [Levemir Flextouch] 16 units SQ BID 09/11/18 01/19/19 Previous Rx's Medication Instructions Recorded Aspirin 81 mg PO DAILY #30 chew 09/27/15 Atorvastatin [Lipitor] 80 mg PO HS #30 tab 09/27/15 Nitroglycerin Sl Tabs [Nitrostat] 0.4 mg SL Q5M PRN #25 tab 09/27/15 Cefuroxime Axetil [Ceftin] 500 mg PO BID 3 Days #6 tab 01/22/19 Clopidogrel [Plavix] 75 mg PO DAILY 30 Days #30 tab 01/22/19 Metoprolol Succinate (ER) [Toprol 25 mg PO BID 30 Days #60 tab.er.24h 01/22/19 XL] Sodium Bicarbonate Tab 650 mg PO BID 30 Days #60 tab 01/22/19 amLODIPine [Norvasc] 5 mg PO HS 30 Days #30 tab 01/22/19 hydrALAZINE HCL [Apresoline] 25 mg PO TID 30 Days #90 tab 01/22/19 Allergies Allergy/AdvReac Type Severity Reaction Status Date / Time No Known Allergies Allergy Verified 01/18/19 22:01 Review of Systems ROS Statement: Those systems with pertinent positive or pertinent negative responses have been documented in the HPI. ROS Other: All systems not noted in ROS Statement are negative. Past Medical History Past Medical History: Coronary Artery Disease (CAD), Cancer, Chest Pain / Angina, CVA/TIA, Diabetes Mellitus, Dialysis, Eye Disorder, GERD/Reflux, Hyp erlipidemia, Hypertension, Myocardial Infarction (DE), Renal Disease, Thyroid Disorder Additional Past Medical History / Comment(s): IDDM, neuropathy bilateral legs/feet, retinopathy bilaterally and is nearly blind, ESRD with past hemo/peritoneal dialysis and in 2010 received kidney transplant, CKD stage II or III, recurrent UTIs, UTI with sepsis, does not completely empty bladder-self caths on occasion, incontinent of urine at times, TIA in 2007, 2013 fractured ribs, vascular dementia per spouse, skin cancer with removal, CDiff 3 times in the past-spouse states to be careful with antibiotic use. Was inpt in 05/2018 for DKA, and fall with multiple fxs Last Myocardial Infarction Date:: 09/24/15 History of Any Multi-Drug Resistant Organisms: C-DIFF Date of last positivie culture/infection: "years ago" MDRO Source:: stool Past Surgical History: Heart Catheterization With Stent Additional Past Surgical History / Comment(s): PCI with stents in 2012 and 2015, kidney transplant November 2010, patient has an AV fistula in the left upper extremity, colonoscopy, skin cancer removal , bilateral eye retinal bleeds with surgery, teeth extractions. Past Anesthesia/Blood Transfusion Reactions: No Reported Reaction Date of Last Stent Placement:: 09/2015 Past Psychological History: Depression Smoking Status: Current every day smoker Past Alcohol Use History: None Reported Past Drug Use History: None Reported - Past Family History Brother(s) Additional Family Medical History / Comment(s): Brother had depression and c omitted suicide. Father Family Medical History: Diabetes Mellitus Additional Family Medical History / Comment(s): Father lived into his 90s. Mother Family Medical History: Myocardial Infarction (DE) Additional Family Medical History / Comment(s): Mother of a DE at the age of 57yrs. General Exam Limitations: no limitations General appearance: alert, in no apparent distress Head exam: Present: atraumatic, normocephalic Eye exam: Present: normal appearance ENT exam: Present: mucous membranes dry Neck exam: Present: normal inspection. Absent: tenderness, meningismus Respiratory exam: Present: wheezes. Absent: rales, rhonchi, chest wall tenderness Cardiovascular Exam: Present: normal rhythm, tachycardia GI/Abdominal exam: Present: soft. Absent: distended, tenderness Extremities exam: Present: normal inspection, other (fistula RUE with palpable thrill) Back exam: Present: normal inspection, full ROM Neurological exam: Present: alert, oriented X3 Psychiatric exam: Present: normal affect, normal mood Skin exam: Present: warm, dry, intact Course Vital Signs 01/18/19 01/18/19 01/18/19 21:46 22:01 22:16 Temperature 101.0 F H 101 F H 101 F H Pulse Rate 113 H 112 H 112 H Respiratory 22 20 18 Rate Blood Pressure 160/95 161/84 135/83 O2 Sat by Pulse 97 98 98 Oximetry 01/18/19 01/18/19 01/19/19 22:31 23:23 01:00 Temperature 100.9 F H 100.1 F H 99.7 F H Pulse Rate 115 H 112 H 110 H Respiratory 18 18 20 Rate Blood Pressure 161/92 161/84 179/94 O2 Sat by Pulse 98 98 98 Oximetry 01/19/19 02:05 Temperature Pulse Rate 112 H Respiratory 19 Rate Blood Pressure 176/95 O2 Sat by Pulse 98 Oximetry Medical Decision Making - Medical Decision Making Upon arrival the patient is placed into room 11. A thorough history and physical exam is performed. He is hooked to continuous pulse ox and cardiac monitoring. I did order repeat laboratory studies in order to trend them from the laboratory studies received at [facility]. A 12-lead EKG is performed. I reviewed the labs from [facility]. The patient had an IV established and was given 2 L of normal saline. He is also given 4 mg of Zofran. EKG was performed which demonstrates peaked T waves. Patient was given 1 amp of calcium gluconate. The patient did get an additional dose of Zofran and Reglan. He was started on an insulin drip at 5 units per hour as well as normal saline at 150 mL per hour. Influenza A and B were negative. Urine sample was unable to be obtained. WBC 6.2, hemoglobin 12.9, admits to 25, sodium 136, potassium 5.5, chloride 96, CO2 16, anion gap 23, UN 48, creatinine 3.2, glucose 473, acetone positive, alk phos 132, aVL T 16, AST 15, bili total 1.1, lipase 13. The patient is given another liter bolus of normal saline and he is restarted on the insulin drip. Laboratory studies demonstrates a hemoglobin of 12.1. CO2 is 16, creatinine 2.9 which is close to the patient's baseline. Glucose is 331. Magnesium 1.1. Troponin is 0.141. This is trend in the patient has had elevated troponins in the past. TSH 6.3 with a free T4 1 0.25. Urinalysis shows 2+ ketone is, moderate blood, large esterase, 15 red blood cells, greater than 182 white blood cells, many white blood cell clumps, many bacteria and occasional mucus. The patient was given 10 mg of Reglan. She has had improvement in his nausea and vomiting. I admitted to the patient to [facility]. He will have Accu-Cheks every 1 hour. He is started on the insulin drip at 2 units per hour which was bumped to 4 units per hour. Lites will be performed every 4 hours. I will consult cardiology for elevated troponin. The patient is not complaining of any chest pain at this time and his EKG appears similar to his last and therefore I do not heparinize him. The patient remained in stable condition awaiting a bed on the floor - Lab Data Result diagrams: 01/20/19 09:11 01/22/19 05:53 Lab Results 01/18/19 01/18/19 01/18/19 Range/Units 21:55 21:55 21:55 WBC 8.6 (3.8-10.6) k/uL RBC 4.11 L (4.30-5.90) m/uL Hgb 12.1 L (13.0-17.5) gm/dL Hct 39.8 (39.0-53.0) % MCV 96.8 (80.0-100.0) fL MCH 29.4 (25.0-35.0) pg MCHC 30.4 L (31.0-37.0) g/dL RDW 13.7 (11.5-15.5) % Plt Count 180 (150-450) k/uL Neutrophils % 87 % Lymphocytes % 5 % Monocytes % 7 % Eosinophils % 0 % Basophils % 0 % Neutrophils # 7.5 (1.3-7.7) k/uL Lymphocytes # 0.5 L (1.0-4.8) k/uL Monocytes # 0.6 (0-1.0) k/uL Eosinophils # 0.0 (0-0.7) k/uL Basophils # 0.0 (0-0.2) k/uL Hypochromasia Moderate Sodium 137 (137-145) mmol/L Potassium 4.4 (3.5-5.1) mmol/L Chloride 104 (98-107) mmol/L Carbon Dioxide 16 L (22-30) mmol/L Anion Gap 17 mmol/L BUN 46 H (9-20) mg/dL Creatinine 2.90 H (0.66-1.25) mg/dL Est GFR (CKD-EPI)AfAm 26 (>60 ml/min/1.73 sqM) Est GFR (CKD-EPI)NonAf 22 (>60 ml/min/1.73 sqM) Glucose 331 H (74-99) mg/dL POC Glucose (mg/dL) (75-99) mg/dL POC Glu Offender Employment Specialist ID Estimated Ave Glu mg/dL Hemoglobin A1c (4.0-6.0) % Plasma Lactic Acid Raymond 1.2 (0.7-2.0) mmol/L Calcium 8.5 (8.4-10.2) mg/dL Magnesium (1.6-2.3) mg/dL Total Bilirubin 0.8 (0.2-1.3) mg/dL AST 18 (17-59) U/L ALT 23 (21-72) U/L Alkaline Phosphatase 96 (38-126) U/L Troponin I (0.000-0.034) ng/mL Total Protein 5.5 L (6.3-8.2) g/dL Albumin 3.7 (3.5-5.0) g/dL TSH 6.360 H (0.465-4.680) mIU/L Free T4 1.25 (0.78-2.19) ng/dL Urine Color Urine Appearance (Clear) Urine pH (5.0-8.0) Ur Specific [place] (1.001-1.035) Urine Protein (Negative) Urine Glucose (UA) (Negative) Urine Ketones (Negative) Urine Blood (Negative) Urine Nitrite (Negative) Urine Bilirubin (Negative) Urine Urobilinogen (<2.0) mg/dL Ur Leukocyte Esterase (Negative) Urine RBC (0-5) /hpf Urine WBC (0-5) /hpf Urine WBC Clumps (None) /hpf Urine Bacteria (None) /hpf Urine Mucus (None) /hpf 01/18/19 01/18/19 01/18/19 Range/Units 21:55 21:55 21:55 WBC (3.8-10.6) k/uL RBC (4.30-5.90) m/uL Hgb (13.0-17.5) gm/dL Hct (39.0-53.0) % MCV (80.0-100.0) fL MCH (25.0-35.0) pg MCHC (31.0-37.0) g/dL RDW (11.5-15.5) % Plt Count (150-450) k/uL Neutrophils % % Lymphocytes % % Monocytes % % Eosinophils % % Basophils % % Neutrophils # (1.3-7.7) k/uL Lymphocytes # (1.0-4.8) k/uL Monocytes # (0-1.0) k/uL Eosinophils # (0-0.7) k/uL Basophils # (0-0.2) k/uL Hypochromasia Sodium (137-145) mmol/L Potassium (3.5-5.1) mmol/L Chloride (98-107) mmol/L Carbon Dioxide (22-30) mmol/L Anion Gap mmol/L BUN (9-20) mg/dL Creatinine (0.66-1.25) mg/dL Est GFR (CKD-EPI)AfAm (>60 ml/min/1.73 sqM) Est GFR (CKD-EPI)NonAf (>60 ml/min/1.73 sqM) Glucose (74-99) mg/dL POC Glucose (mg/dL) (75-99) mg/dL POC Glu Offender Employment Specialist ID Estimated [address] Glu mg/dL 260 Hemoglobin A1c 10.7 H (4.0-6.0) % Plasma Lactic Acid Raymond (0.7-2.0) mmol/L Calcium (8.4-10.2) mg/dL Magnesium 1.1 L (1.6-2.3) mg/dL Total Bilirubin (0.2-1.3) mg/dL AST (17-59) U/L ALT (21-72) U/L Alkaline Phosphatase (38-126) U/L Troponin I 0.141 H* (0.000-0.034) ng/mL Total Protein (6.3-8.2) g/dL Albumin (3.5-5.0) g/dL TSH (0.465-4.680) mIU/L Free T4 (0.78-2.19) ng/dL Urine Color Urine Appearance (Clear) Urine pH (5.0-8.0) Ur Specific [place] (1.001-1.035) Urine Protein (Negative) Urine Glucose (UA) (Negative) Urine Ketones (Negative) Urine Blood (Negative) Urine Nitrite (Negative) Urine Bilirubin (Negative) Urine Urobilinogen (<2.0) mg/dL Ur Leukocyte Esterase (Negative) Urine RBC (0-5) /hpf Urine WBC (0-5) /hpf Urine WBC Clumps (None) /hpf Urine Bacteria (None) /hpf Urine Mucus (None) /hpf 01/18/19 01/18/19 01/19/19 Range/Units 22:05 22:30 00:03 WBC (3.8-10.6) k/uL RBC (4.30-5.90) m/uL Hgb (13.0-17.5) gm/dL Hct (39.0-53.0) % MCV (80.0-100.0) fL MCH (25.0-35.0) pg MCHC (31.0-37.0) g/dL RDW (11.5-15.5) % Plt Count (150-450) k/uL Neutrophils % % Lymphocytes % % Monocytes % % Eosinophils % % Basophils % % Neutrophils # (1.3-7.7) k/uL Lymphocytes # (1.0-4.8) k/uL Monocytes # (0-1.0) k/uL Eosinophils # (0-0.7) k/uL Basophils # (0-0.2) k/uL Hypochromasia Sodium (137-145) mmol/L Potassium (3.5-5.1) mmol/L Chloride (98-107) mmol/L Carbon Dioxide (22-30) mmol/L Anion Gap mmol/L BUN (9-20) mg/dL Creatinine (0.66-1.25) mg/dL Est GFR (CKD-EPI)AfAm (>60 ml/min/1.73 sqM) Est GFR (CKD-EPI)NonAf (>60 ml/min/1.73 sqM) Glucose (74-99) mg/dL POC Glucose (mg/dL) 322 H 360 H (75-99) mg/dL POC Glu [employer]ender Employment Specialist Jamaal Hobson [address] Glu mg/dL Hemoglobin A1c (4.0-6.0) % Plasma Lactic Acid Raymond (0.7-2.0) mmol/L Calcium (8.4-10.2) mg/dL Magnesium (1.6-2.3) mg/dL Total Bilirubin (0.2-1.3) mg/dL AST (17-59) U/L ALT (21-72) U/L Alkaline Phosphatase (38-126) U/L Troponin I (0.000-0.034) ng/mL Total Protein (6.3-8.2) g/dL Albumin (3.5-5.0) g/dL TSH (0.465-4.680) mIU/L Free T4 (0.78-2.19) ng/dL Urine Color Yellow Urine Appearance Turbid (Clear) Urine pH 6.0 (5.0-8.0) Ur Specific [place] 1.018 (1.001-1.035) Urine Protein 2+ H (Negative) Urine Glucose (UA) 2+ H (Negative) Urine Ketones 2+ H (Negative) Urine Blood Moderate H (Negative) Urine Nitrite Negative (Negative) Urine Bilirubin Negative (Negative) Urine Urobilinogen <2.0 (<2.0) mg/dL Ur Leukocyte Esterase Large H (Negative) Urine RBC 15 H (0-5) /hpf Urine WBC >182 H (0-5) /hpf Urine WBC Clumps Many H (None) /hpf Urine Bacteria Many H (None) /hpf Urine Mucus Occasional H (None) /hpf - EKG Data EKG Comments: EKG demonstrates a sinus tachycardia with ventricular rate of 113. NM interval 158. QRS 102. QTC of 45. There are peaked T waves in V2 through V3. There was ST elevation in V1. Q waves in leads 2 and aVF. Inverted T-wave in aVL. This is compared to patient's previous EKG and the morphology appears similar except for the inverted T-wave in aVL. Old EKGs from May 2018. Disposition Clinical Impression: Fever, DKA (diabetic ketoacidoses), Urinary tract infection, CKD (chronic kidney disease), History of renal transplant, NSTEMI (non-ST elevation myocardial infarction) Disposition: ADMITTED IP TO THIS HOSP Condition: Serious Is patient prescribed a controlled substance at d/c from ED?: No Decision to Admit Reason: Admit from EC Decision Date: 01/19/19 Decision Time: 00:42
[2019-01-19] MEDS ORDERED: ACETAMINOPHEN TAB 325 MG TAB PO PRN (00:43)
[2019-01-19] MEDS ORDERED: NALOXONE 0.4 MG/ML 1 ML VIAL IV PRN (00:43)
[2019-01-19] MEDS ORDERED: ONDANSETRON 4 MG/2 ML VIAL IVP PRN (00:43)
[2019-01-19 00:48] LABS: T4, Free (Free Thyroxine) 1.25 ng/dL (0.78-2.19)
[2019-01-19 00:54] LABS: ABG Base Excess -14.1 mmol/L; ABG HCO3 13 mmol/L (21-25); ABG Oxygen Saturation 97.3 % (94-97); ABG PCO2 28 mmHg (35-45); ABG PH 7.27 (7.35-7.45); ABG PO2 104 mmHg (83-108); ABG TCO2 14 mmol/L (19-24); Allen Test Performed? Yes
[2019-01-19] MEDS ORDERED: METOCLOPRAMIDE 5 MG/ML 2 ML VIAL IM PRN (01:32)
[2019-01-19 01:45] LABS: Glucose,Whole Blood 370 mg/dL (75-99)
[2019-01-19 02:54] LABS: Glucose,Whole Blood 303 mg/dL (75-99)
[2019-01-19] MEDS ORDERED: SODIUM CHLORIDE 0.9% 1,000 ML IV SCH (03:00)
[2019-01-19] MEDS ORDERED: TACROLIMUS 1 MG CAP PO SCH (03:00)
[2019-01-19] MEDS ORDERED: INSULIN REGULAR 100 UNIT in SODIUM CHLORIDE 0.9% 100 ML IV SCH (03:15)
[2019-01-19] MEDS: D5-0.45% NACL WITH KCL 20MEQ/L 1,000 ML IV SCH ×2 (03:36→11:54)
[2019-01-19 03:38] LABS: Glucose,Whole Blood 270 mg/dL (75-99)
[2019-01-19 04:35] LABS: Glucose,Whole Blood 229 mg/dL (75-99)
[2019-01-19] MEDS ORDERED: Magnesium Replacement Protocol 1 EACH MISC MISCELLANE PRN (05:21)
[2019-01-19 05:31] LABS: Potassium 4.1 mmol/L (3.5-5.1)
[2019-01-19 05:35] LABS: Glucose,Whole Blood 204 mg/dL (75-99)
[2019-01-19] MEDS: MAGNESIUM SULFATE-D5W PMX 1 GM in DEXTROSE/WATER 1 100ML.BAG IVPB SCH ×3 (05:35→07:44)
[2019-01-19 06:31] LABS: Glucose,Whole Blood 171 mg/dL (75-99)
[2019-01-19 07:31] LABS: Glucose,Whole Blood 116 mg/dL (75-99)
[2019-01-19 07:47] LABS: Potassium 3.9 mmol/L (3.5-5.1)
[2019-01-19] MEDS: CLOPIDOGREL 75 MG TAB PO SCH (07:48)
[2019-01-19] MEDS: TACROLIMUS 1 MG CAP PO SCH ×2 (07:49→20:28)
[2019-01-19 08:58] LABS: Glucose,Whole Blood 129 mg/dL (75-99)
[2019-01-19 09:54] LABS: Glucose,Whole Blood 101 mg/dL (75-99)
[2019-01-19] MEDS ORDERED: HEPARIN SODIUM,PORCINE 5,000 UNIT/ML 1 ML VIAL IV ONE (10:13)
[2019-01-19] MEDS ORDERED: HEPARIN SODIUM,PORCINE 5,000 UNIT/ML 1 ML VIAL IV PRN (10:13)
--- NOTE | 2019-01-19 10:48 | CONS ---
CONSULTATION CHIEF COMPLAINT: Non ST-segment elevation MT. Artem is a 63-year-old gentleman with history of coronary artery disease, status post prior angioplasty of the right coronary artery and LAD, chronic renal failure, status post kidney transplant, diabetes, hypertension, dyslipidemia, who presented to hospital with symptoms of not feeling well, nausea, vomiting. He did not take any insulin on Sunday because he states he was feeling very sleepy. He did not have any chest pain or difficulty in breathing. There is no history of palpitations, dizziness or syncope. There is no history of focal neurological deficits. Troponin on initial presentation was 0.14 and subsequently it came back elevated at 4.6, suggestive of acute non ST- segment elevation MT. His EKG shows sinus tachycardia, left axis deviation and nonspecific ST-T wave changes. At the time of my evaluation this morning, he appears comfortable at rest and is hemodynamically stable. Heart rate is 90 beats per minute. Blood pressure is 144/75, respiratory rate 18. The patient's creatinine is elevated. Given the non ST-segment elevation MT, I am starting the patient on IV heparin. The patient has diabetic ketoacidosis, which is currently being managed by primary. PAST MEDICAL HISTORY: Significant for coronary artery disease, status post multivessel angioplasty, renal failure status post transplant, hypothyroidism, dyslipidemia, insulin-requiring diabetes. MEDICATIONS: Medications at home include Prilosec, tacrolimus and mycophenolate, aspirin, Zoloft, Synthroid, Levemir, Lipitor. ALLERGIES: There are no known drug allergies. FAMILY HISTORY: Negative for premature coronary artery disease. SOCIAL HISTORY: Significant for smoking. He denies ETOH abuse or drug abuse. REVIEW OF SYSTEMS: HEENT is unremarkable. Cardiac as described above. Respiratory as described above. GI negative. Genitourinary negative. Allergy/Immunology: Negative. Skin negative. Musculoskeletal significant for arthritis. Psychosocial negative. Endocrine negative. Constitutional negative. Oncological negative. Rest of the system review is not relevant. PHYSICAL EXAMINATION: On exam, patient is comfortable at rest. Heart rate is 92 beats per minute. Blood pressure is 142/75, respiratory rate 18. O2 sat is 99% on room air. Patient is afebrile. There is no jugular venous distention. Chest exam reveals good air entry bilaterally. Heart exam reveals first and second heart sounds. No gallop. No murmur. Abdomen is soft, nontender. Exam of extremities did not reveal any edema. Peripheral pulses are felt. HIGH S[employer] ASSISTANT [employer] COACH exam did not reveal focal neurological deficits. LABS: Show potassium of 3.9. Troponin is 4.6. Creatinine is elevated at 2.9, hemoglobin is 12.1. ASSESSMENT: 1. Acute diabetic ketoacidosis. 2. Acute non ST-segment elevation myocardial infarction. 3. History of coronary artery disease status post multivessel angioplasty. PLAN: Patient will be treated with aspirin, Plavix, intravenous heparin, blood pressure tolerating and beta blockers. I will obtain a 2D echo on him tomorrow to evaluate the LV function and when the DKA resolves, we have to perform invasive angiography. We will consult Nephrology in the meantime. MMODL / IJN: [id number] /
[2019-01-19 10:52] LABS: Partial Thromboplastin Time 27.6 sec (22.0-30.0); Prothrombin Time 11.1 sec (9.0-12.0)
[2019-01-19 10:55] LABS: Potassium 4.2 mmol/L (3.5-5.1)
[2019-01-19 11:18] LABS: Glucose,Whole Blood 111 mg/dL (75-99)
[2019-01-19] MEDS: HEPARIN SOD,PORK IN 0.45% NACL 25,000 UNIT in 0.45% NACL 1 250ML.BAG IV SCH (11:53)
[2019-01-19] MEDS: SODIUM CHLORIDE 0.9% 1,000 ML IV SCH (11:56)
[2019-01-19] MEDS: METOPROLOL SUCCINATE (ER) 25 MG TAB.ER.24H PO SCH (12:11)
[2019-01-19 12:14] LABS: Glucose,Whole Blood 111 mg/dL (75-99)
--- NOTE | 2019-01-19 12:42 | P.NPCON ---
History of Present Illness - Reason for Consult acute renal failure, chronic renal failure - History of Present Illness Reason for consultation: Acute allograft dysfunction and renal transplant management History of present illness: Patient is a 63-year-old male seen in consultation for acute allograft dy sfunction and renal transplant management. Patient received a donor renal allograft in 2010 at [facility]. Etiology is diabetic kidney disease. Patient has chronic kidney disease stage IV with baseline creatinine in the range of 2.2-2.5 patient. Patient is maintained on Prograf and Myfortic outpatient. Patient presented to the hospital due to vomiting and diarrhea going on the last few days. Not able to eat MRSA last 2 days. Patient states he did not take his insulin on Sunday. Patient's blood sugars have been elevated. He is currently maintained on insulin drip. He is maintained on D5 half normal saline running at 1 50 mL an hour. Admits to good urine output. No hematuria or dysuria. Vomiting has resolved but still having loose bowel movements. Patient's blood sugar was as high as 370 this admission and was 111 as of this afternoon. No evidence of hypotension. His blood pressures are actually been on the higher side. Patient also has elevated troponin levels and is potentially scheduled for cardiac catheterization tomorrow. Denies use of nonsteroidals. Vital signs are stable. General: The patient appeared well nourished and normally developed. HEENT: Head exam is unremarkable. Neck is without jugular venous distension. LUNGS: Lungs are clear to auscultation and percussion. Breath sounds decreased. HEART: Rate and Rhythm are regular. First and second heart sounds normal. No murmurs, rubs or gallops. ABDOMEN: Abdominal exam reveals normal bowel sounds. Non-tender and non- distended. No evidence of peritonitis. EXTREMITITES: No clubbing, cyanosis, or edema. Past Medical History Past Medical History: Coronary Artery Disease (CAD), Cancer, Chest Pain / Angina, CVA/TIA, Diabetes Mellitus, Dialysis, Eye Disorder, GERD/Reflux, Hyperlipidemia, Hypertension, Myocardial Infarction (AL), Renal Disease, Thyroid Disorder Additional Past Medical History / Comment(s): IDDM, neuropathy bilateral legs/feet, retinopathy bilaterally and is nearly blind, ESRD with past hemo/peritoneal dialysis and in 2010 received kidney transplant, CKD stage II or III, recurrent UTIs, UTI with sepsis, does not completely empty bladder-self caths on occasion, incontinent of urine at times, TIA in 2007, 2013 fractured ribs, vascular dementia per spouse, skin cancer with removal, CDiff 3 times in the past-spouse states to be careful with antibiotic use. Was inpt in 05/2018 for DKA, and fall with multiple fxs Last Myocardial Infarction Date:: 09/24/15 History of Any Multi-Drug Resistant Organisms: C-DIFF Date of last positivie culture/infection: "years ago" MDRO Source:: stool Past Surgical History: Heart Catheterization With Stent Additional Past Surgical History / Comment(s): PCI with stents in 2012 and 2015, kidney transplant November 2010, patient has an AV fistula in the left upper extremity, colonoscopy, skin cancer removal , bilateral eye retinal bleeds with surgery, teeth extractions. Past Anesthesia/Blood Transfusion Reactions: No Reported Reaction Date of Last Stent Placement:: 09/2015 Past Psychological History: Depression Additional Psychological History / Comment(s): Pt has severe depression. He has spoken of suicide in the past but not lately. Pt denies suicidal thoughts or plans. Pt is on zoloft now and thinks it has helped. Pt refuses to use assistive device. Spouse states they have wheelchair, walker and cane in the home. Pt has very poor vision and no longer drives, his spouse drives. Smoking Status: Current every day smoker Past Alcohol Use History: None Reported Additional Past Alcohol Use History / Comment(s): Patient is currently smoking 1 pack per day. He has been smoking since he was 13 years old. He does have history of alcoholism has been alcohol free for 9 years. Past Drug Use History: None Reported - Past Family History Brother(s) Additional Family Medical History / Comment(s): Brother had depression and comitted suicide. Father Family Medical History: Diabetes Mellitus Additional Family Medical History / Comment(s): Father lived into his 90s. Mother Family Medical History: Myocardial Infarction (AL) Additional Family Medical History / Comment(s): Mother of a AL at the age of 57yrs. Medications and Allergies Home Medications Medication Instructions Recorded Confirmed Type Sertraline [Zoloft] 100 mg PO HS 09/21/13 01/19/19 History Aspirin 81 mg PO DAILY #30 chew 09/27/15 01/19/19 Rx Atorvastatin [Lipitor] 80 mg PO HS #30 tab 09/27/15 01/19/19 Rx Nitroglycerin Sl Tabs [Nitrostat] 0.4 mg SL Q5M PRN #25 tab 09/27/15 01/19/19 Rx Levothyroxine Sodium [Synthroid] 50 mcg PO DAILY 03/13/17 01/19/19 History Mycophenolate Sodium [Mycophenolic 720 mg PO BID 03/13/17 01/19/19 History Acid] Omeprazole [PriLOSEC] 20 mg PO AC-BID 03/13/17 01/19/19 History Tacrolimus [Prograf] 3 mg PO Q12H 12/17/17 01/19/19 History Insulin Aspart [NovoLOG Flexpen] 0 unit SQ TID PRN 01/17/18 01/19/19 History Insulin Detemir [Levemir Flextouch] 16 units SQ BID 09/11/18 01/19/19 History Allergies Allergy/AdvReac Type Severity Reaction Status Date / Time No Known Allergies Allergy Verified 01/18/19 22:01 Physical Exam Vitals: Vital Signs Temp Pulse Pulse Resp BP BP Pulse Ox 01/19/19 08:00 97.4 F L 92 18 144/75 99 01/19/19 04:00 98.7 F 111 H 16 174/64 96 01/19/19 02:56 98.7 F 111 H 18 194/96 98 01/19/19 02:05 112 H 19 176/95 98 01/19/19 01:00 99.7 F H 110 H 20 179/94 98 01/18/19 23:23 100.1 F H 112 H 18 161/84 98 01/18/19 22:31 100.9 F H 115 H 18 161/92 98 01/18/19 22:16 101 F H 112 H 18 135/83 98 01/18/19 22:01 101 F H 112 H 20 161/84 98 01/18/19 21:46 101.0 F H 113 H 22 160/95 97 Intake and Output 01/18/19 01/19/19 01/19/19 22:59 06:59 14:59 Intake Total 2.567 274.754 Output Total 600 Balance -597.433 274.754 Intake: Intake, IV Titration 2.567 34.754 Amount Insulin Regular 100 unit 34.754 In Sodium Chloride 0.9% 100 ml @ 0.1 UNITS/KG/HR 6.414 mls/hr IV .[id number] [facility] Rx#:[id number] Insulin Regular 100 unit 2.567 In Sodium Chloride 0.9% 100 ml @ Titrate IV .Q0M [facility] Rx#:[id number] Oral 240 Output: Urine 600 Condom 450 Other: Voiding Method Self-Catheterization Weight 63.503 kg 63.503 kg Results - Lab Results Most recent lab results ABG pH 7.27 (7.35-7.45) L 01/19/19 00:52 ABG pCO2 28 mmHg (35-45) L 01/19/19 00:52 ABG pO2 104 mmHg (83-108) 01/19/19 00:52 ABG HCO3 13 mmol/L (21-25) L 01/19/19 00:52 ABG O2 Saturation 97.3 % (94-97) H 01/19/19 00:52 Calcium 8.5 mg/dL (8.4-10.2) 01/18/19 21:55 Magnesium 1.1 mg/dL (1.6-2.3) L 01/18/19 21:55 01/18/19 21:55 01/19/19 10:25 Assessment and Plan Plan: Assessment: 1. Acute allograft dysfunction mostly prerenal secondary to intravascular volume depletion from hyperglycemia and vomiting/diarrhea. Creatinine 2.9 on admission. 2. Chronic kidney disease stage IV with baseline creatinine in the range of 2.2-2.5. 3. Diabetes mellitus. Uncontrolled. Currently on insulin drip. 4. Hypomagnesemia secondary to diarrhea. Status post placement. 5. Anion gap metabolic acidosis secondary to DKA. Better. 6. Hypertension with chronic kidney disease. 7. Elevated troponins. Concern for acute coronary syndrome. Potential cardiac catheterization tomorrow. Currently on heparin drip. Plan: Change IV fluids to normal saline at 80 mL an hour. Resume home antirejection medications. Patient is maintained on Prograf and Myfortic outpatient. Metoprolol has been resumed. Add hydralazine 10 mg IV every 4 hours as needed for systolic blood pressure gre ater than 160. Avoid nephrotoxins. Repeat electrolytes in the morning. Thank you for the consultation. I will continue to follow the patient with you during his hospital stay.
[2019-01-19] MEDS: INSULIN ASPART (NovoLOG) 100 UNIT/ML VIAL SQ SCH ×3 (13:29→21:28)
[2019-01-19] MEDS: MYCOPHENOLATE SODIUM DR 180 MG TABLET.DR PO SCH ×2 (14:29→20:28)
[2019-01-19 16:57] LABS: Glucose,Whole Blood 251 mg/dL (75-99)
--- NOTE | 2019-01-19 19:03 | P.HPIM ---
History of Present Illness H&P Date: 01/19/19 Chief Complaint: Nausea and vomiting. Mr. Wright is a 63-year-old male with a past medical history of diabetes mellitus, renal transplant, CVA/TIA, GERD, hypertension, hyperlipidemia, thyroid disorder, CK D stage II to 3, neurogenic bladder coming in with a chief complaint of nausea and vomiting. Patient states that for the past couple of days he has been feeling sick that he could not get out of the bed. He missed his insulin doses. Patient straight caths himself every 8 hours and for the past couple of days he had to straight cath himself every 4 hours. Patient co ntinued to have nausea and vomiting. He could not keep anything down. So he came into the emergency department. Patient denied having any chest pain or difficulty in breathing. No cough. No fever chills or rigors. No sick contacts. Patient has history of renal transplant and is on immunosuppression therapy. He states that he could not keep any of his pills down to his nausea and vomiting. In the emergency department patient had blood work done showing diabetic ketoacidosis and elevated troponins. Patient's urine analysis was positive for large leukocyte esterase and more than 182 WBCs. Urine culture has been obtained. So the patient has been admitted for non-ST elevation CO, DKA and UTI. Review of Systems REVIEW OF SYSTEMS: PSYCH: No anxiety or depression NEURO:No c/o weakness of the extremties, No facial droop, No speech abnormalities. VASCULAR: Peripheral nervous system within the normal limits no edema HEMATOLOGIC: No history of easy bleeding and bruising . No recent infections . RESPIRATORY: No cough, No SOB, No chest discomfort. IMMUNE: No infections INTEGUMENT: no rashes OPHTHALMOLOGIC: No blurry vision and no eye discharge : As per HPI CARDIAC: No chest pain , shortness of breath , paroxysmal nocturnal dyspnea MUSCULOSKELETAL : No Aches or pains in the joints or muscles. GI: As per HPI All 13 review of systems done and negative except for the ones mentioned above. Past Medical History Past Medical History: Coronary Artery Disease (CAD), Cancer, Chest Pain / Angina, CVA/TIA, Diabetes Mellitus, Dialysis, Eye Disorder, GERD/Reflux, Hyperlipidemia, Hypertension, Myocardial Infarction (CO), Renal Disease, Thyroid Disorder Additional Past Medical History / Comment(s): IDDM, neuropathy bilateral legs/feet, retinopathy bilaterally and is nearly blind, ESRD with past hemo/peritoneal dialysis and in 2010 received kidney transplant, CKD stage II or III, recurrent UTIs, UTI with sepsis, does not completely empty bladder-self caths on occasion, incontinent of urine at times, TIA in 2007, 2013 fractured ribs, vascular dementia per spouse, skin cancer with removal, CDiff 3 times in the past-spouse states to be careful with antibiotic use. Was inpt in 05/2018 for DKA, and fall with multiple fxs Last Myocardial Infarction Date:: 09/24/15 History of Any Multi-Drug Resistant Organisms: C-DIFF Date of last positivie culture/infection: "years ago" MDRO Source:: stool Past Surgical History: Heart Catheterization With Stent Additional Past Surgical History / Comment(s): PCI with stents in 2012 and 2015, kidney transplant November 2010, patient has an AV fistula in the left upper extremity, colonoscopy, skin cancer removal , bilateral eye retinal bleeds with surgery, teeth extractions. Past Anesthesia/Blood Transfusion Reactions: No Reported Reaction Date of Last Stent Placement:: 09/2015 Past Psychological History: Depression Additional Psychological History / Comment(s): Pt has severe depression. He has spoken of suicide in the past but not lately. Pt denies suicidal thoughts or plans. Pt is on zoloft now and thinks it has helped. Pt refuses to use assistive device. Spouse states they have wheelchair, walker and cane in the home. Pt has very poor vision and no longer drives, his spouse drives. Smoking Status: Current every day smoker Past Alcohol Use History: None Reported Additional Past Alcohol Use History / Comment(s): Patient is currently smoking 1 pack per day. He has been smoking since he was 13 years old. He does have history of alcoholism has been alcohol free for 9 years. Past Drug Use History: None Reported - Past Family History Brother(s) Additional Family Medical History / Comment(s): Brother had depression and comitted suicide. Father Family Medical History: Diabetes Mellitus Additional Family Medical History / Comment(s): Father lived into his 90s. Mother Family Medical History: Myocardial Infarction (CO) Additional Family Medical History / Comment(s): Mother of a CO at the age of 57yrs. Medications and Allergies Home Medications Medication Instructions Recorded Confirmed Type Sertraline [Zoloft] 100 mg PO HS 09/21/13 01/19/19 History Aspirin 81 mg PO DAILY #30 chew 09/27/15 01/19/19 Rx Atorvastatin [Lipitor] 80 mg PO HS #30 tab 09/27/15 01/19/19 Rx Nitroglycerin Sl Tabs [Nitrostat] 0.4 mg SL Q5M PRN #25 tab 09/27/15 01/19/19 Rx Levothyroxine Sodium [Synthroid] 50 mcg PO DAILY 03/13/17 01/19/19 History Mycophenolate Sodium [Mycophenolic 720 mg PO BID 03/13/17 01/19/19 History Acid] Omeprazole [PriLOSEC] 20 mg PO AC-BID 03/13/17 01/19/19 History Tacrolimus [Prograf] 3 mg PO Q12H 12/17/17 01/19/19 History Insulin Aspart [NovoLOG Flexpen] 0 unit SQ TID PRN 01/17/18 01/19/19 History Insulin Detemir [Levemir Flextouch] 16 units SQ BID 09/11/18 01/19/19 History Allergies Allergy/AdvReac Type Severity Reaction Status Date / Time No Known Allergies Allergy Verified 01/18/19 22:01 Physical Exam Vitals: Vital Signs Temp Pulse Pulse Resp BP BP Pulse Ox 01/19/19 16:30 97.6 F 76 17 175/79 97 01/19/19 12:20 81 18 146/77 96 01/19/19 08:00 97.4 F L 92 18 144/75 99 01/19/19 04:00 98.7 F 111 H 16 174/64 96 01/19/19 02:56 98.7 F 111 H 18 194/96 98 01/19/19 02:05 112 H 19 176/95 98 01/19/19 01:00 99.7 F H 110 H 20 179/94 98 01/18/19 23:23 100.1 F H 112 H 18 161/84 98 01/18/19 22:31 100.9 F H 115 H 18 161/92 98 01/18/19 22:16 101 F H 112 H 18 135/83 98 01/18/19 22:01 101 F H 112 H 20 161/84 98 01/18/19 21:46 101.0 F H 113 H 22 160/95 97 Intake and Output 01/19/19 01/19/19 01/19/19 06:59 14:59 22:59 Intake Total 2.567 274.754 Output Total 600 1 1600 Balance -597.433 273.754 -1600 Intake: Intake, IV Titration 2.567 34.754 Amount Insulin Regular 100 unit 34.754 In Sodium Chloride 0.9% 100 ml @ 0.1 UNITS/KG/HR 6.414 mls/hr IV .[id number] GOLDY Rx#:[id number] Insulin Regular 100 unit 2.567 In Sodium Chloride 0.9% 100 ml @ Titrate IV .Q0M GOLDY Rx#:[id number] Oral 240 Output: Urine 600 1 1600 Condom 450 Straight 800 Other: Voiding Method Self-Catheterization Self-Catheterization # Bowel Movements 2 1 Weight 63.503 kg 63.503 kg GEN. APPEARANCE: alert, in no apparent distress HEENT : Normocephalic. Pupils round and reactive to light. No pallor. No icterus. Poor dental hygiene. RESPIRATORY EXAM: Decreased breath sounds in all lung neri. Few crackles at the lower lung bases. CARDIOVASCULAR EXAM: regular rate, normal rhythm, normal heart sounds. No additional sounds. GI/ABDOMINAL EXAM: soft, normal bowel sounds. Mild epigastric tenderness. No guarding or rigidity. EXTREMITIES EXAM: No edema. NEUROLOGICAL EXAM: alert, oriented X3, no focal neurological deficits. PSYCHIATRIC EXAM: normal affect, normal mood SKIN EXAM: warm, dry, intact, normal color. Absent: rash Results CBC & Chem 7: 01/20/19 09:11 01/20/19 09:11 Labs: Abnormal Lab Results - Last 24 Hours (Table) 01/18/19 01/18/19 01/18/19 Range/Units 21:55 21:55 21:55 RBC 4.11 L (4.30-5.90) m/uL Hgb 12.1 L (13.0-17.5) gm/dL MCHC 30.4 L (31.0-37.0) g/dL Lymphocytes # 0.5 L (1.0-4.8) k/uL ABG pH (7.35-7.45) ABG pCO2 (35-45) mmHg ABG HCO3 (21-25) mmol/L ABG Total CO2 (19-24) mmol/L ABG O2 Saturation (94-97) % Chloride (98-107) mmol/L Carbon Dioxide 16 L (22-30) mmol/L BUN 46 H (9-20) mg/dL Creatinine 2.90 H (0.66-1.25) mg/dL Glucose 331 H (74-99) mg/dL POC Glucose (mg/dL) (75-99) mg/dL Magnesium (1.6-2.3) mg/dL Troponin I 0.141 H* (0.000-0.034) ng/mL Total Protein 5.5 L (6.3-8.2) g/dL TSH 6.360 H (0.465-4.680) mIU/L Urine Protein (Negative) Urine Glucose (UA) (Negative) Urine Ketones (Negative) Urine Blood (Negative) Ur Leukocyte Esterase (Negative) Urine RBC (0-5) /hpf Urine WBC (0-5) /hpf Urine WBC Clumps (None) /hpf Urine Bacteria (None) /hpf Urine Mucus (None) /hpf 01/18/19 01/18/19 01/18/19 Range/Units 21:55 22:05 22:30 RBC (4.30-5.90) m/uL Hgb (13.0-17.5) gm/dL MCHC (31.0-37.0) g/dL Lymphocytes # (1.0-4.8) k/uL ABG pH (7.35-7.45) ABG pCO2 (35-45) mmHg ABG HCO3 (21-25) mmol/L ABG Total CO2 (19-24) mmol/L ABG O2 Saturation (94-97) % Chloride (98-107) mmol/L Carbon Dioxide (22-30) mmol/L BUN (9-20) mg/dL Creatinine (0.66-1.25) mg/dL Glucose (74-99) mg/dL POC Glucose (mg/dL) 322 H (75-99) mg/dL Magnesium 1.1 L (1.6-2.3) mg/dL Troponin I (0.000-0.034) ng/mL Total Protein (6.3-8.2) g/dL TSH (0.465-4.680) mIU/L Urine Protein 2+ H (Negative) Urine Glucose (UA) 2+ H (Negative) Urine Ketones 2+ H (Negative) Urine Blood Moderate H (Negative) Ur Leukocyte Esterase Large H (Negative) Urine RBC 15 H (0-5) /hpf Urine WBC >182 H (0-5) /hpf Urine WBC Clumps Many H (None) /hpf Urine Bacteria Many H (None) /hpf Urine Mucus Occasional H (None) /hpf 01/19/19 01/19/19 01/19/19 Range/Units 00:03 00:52 01:43 RBC (4.30-5.90) m/uL Hgb (13.0-17.5) gm/dL MCHC (31.0-37.0) g/dL Lymphocytes # (1.0-4.8) k/uL ABG pH 7.27 L (7.35-7.45) ABG pCO2 28 L (35-45) mmHg ABG HCO3 13 L (21-25) mmol/L ABG Total CO2 14 L (19-24) mmol/L ABG O2 Saturation 97.3 H (94-97) % Chloride (98-107) mmol/L Carbon Dioxide (22-30) mmol/L BUN (9-20) mg/dL Creatinine (0.66-1.25) mg/dL Glucose (74-99) mg/dL POC Glucose (mg/dL) 360 H 370 H (75-99) mg/dL Magnesium (1.6-2.3) mg/dL Troponin I (0.000-0.034) ng/mL Total Protein (6.3-8.2) g/dL TSH (0.465-4.680) mIU/L Urine Protein (Negative) Urine Glucose (UA) (Negative) Urine Ketones (Negative) Urine Blood (Negative) Ur Leukocyte Esterase (Negative) Urine RBC (0-5) /hpf Urine WBC (0-5) /hpf Urine WBC Clumps (None) /hpf Urine Bacteria (None) /hpf Urine Mucus (None) /hpf 01/19/19 01/19/19 01/19/19 Range/Units 02:52 03:36 04:34 RBC (4.30-5.90) m/uL Hgb (13.0-17.5) gm/dL MCHC (31.0-37.0) g/dL Lymphocytes # (1.0-4.8) k/uL ABG pH (7.35-7.45) ABG pCO2 (35-45) mmHg ABG HCO3 (21-25) mmol/L ABG Total CO2 (19-24) mmol/L ABG O2 Saturation (94-97) % Chloride (98-107) mmol/L Carbon Dioxide (22-30) mmol/L BUN (9-20) mg/dL Creatinine (0.66-1.25) mg/dL Glucose (74-99) mg/dL POC Glucose (mg/dL) 303 H 270 H 229 H (75-99) mg/dL Magnesium (1.6-2.3) mg/dL Troponin I (0.000-0.034) ng/mL Total Protein (6.3-8.2) g/dL TSH (0.465-4.680) mIU/L Urine Protein (Negative) Urine Glucose (UA) (Negative) Urine Ketones (Negative) Urine Blood (Negative) Ur Leukocyte Esterase (Negative) Urine RBC (0-5) /hpf Urine WBC (0-5) /hpf Urine WBC Clumps (None) /hpf Urine Bacteria (None) /hpf Urine Mucus (None) /hpf 01/19/19 01/19/19 01/19/19 Range/Units 04:45 05:34 06:30 RBC (4.30-5.90) m/uL Hgb (13.0-17.5) gm/dL MCHC (31.0-37.0) g/dL Lymphocytes # (1.0-4.8) k/uL ABG pH (7.35-7.45) ABG pCO2 (35-45) mmHg ABG HCO3 (21-25) mmol/L ABG Total CO2 (19-24) mmol/L ABG O2 Saturation (94-97) % Chloride (98-107) mmol/L Carbon Dioxide 18 L (22-30) mmol/L BUN (9-20) mg/dL Creatinine (0.66-1.25) mg/dL Glucose (74-99) mg/dL POC Glucose (mg/dL) 204 H 171 H (75-99) mg/dL Magnesium (1.6-2.3) mg/dL Troponin I (0.000-0.034) ng/mL Total Protein (6.3-8.2) g/dL TSH (0.465-4.680) mIU/L Urine Protein (Negative) Urine Glucose (UA) (Negative) Urine Ketones (Negative) Urine Blood (Negative) Ur Leukocyte Esterase (Negative) Urine RBC (0-5) /hpf Urine WBC (0-5) /hpf Urine WBC Clumps (None) /hpf Urine Bacteria (None) /hpf Urine Mucus (None) /hpf 01/19/19 01/19/19 01/19/19 Range/Units 07:20 07:20 07:30 RBC (4.30-5.90) m/uL Hgb (13.0-17.5) gm/dL MCHC (31.0-37.0) g/dL Lymphocytes # (1.0-4.8) k/uL ABG pH (7.35-7.45) ABG pCO2 (35-45) mmHg ABG HCO3 (21-25) mmol/L ABG Total CO2 (19-24) mmol/L ABG O2 Saturation (94-97) % Chloride 108 H (98-107) mmol/L Carbon Dioxide 20 L (22-30) mmol/L BUN (9-20) mg/dL Creatinine (0.66-1.25) mg/dL Glucose (74-99) mg/dL POC Glucose (mg/dL) 116 H (75-99) mg/dL Magnesium (1.6-2.3) mg/dL Troponin I 4.600 H* (0.000-0.034) ng/mL Total Protein (6.3-8.2) g/dL TSH (0.465-4.680) mIU/L Urine Protein (Negative) Urine Glucose (UA) (Negative) Urine Ketones (Negative) Urine Blood (Negative) Ur Leukocyte Esterase (Negative) Urine RBC (0-5) /hpf Urine WBC (0-5) /hpf Urine WBC Clumps (None) /hpf Urine Bacteria (None) /hpf Urine Mucus (None) /hpf 01/19/19 01/19/19 01/19/19 Range/Units 08:47 09:42 10:25 RBC (4.30-5.90) m/uL Hgb (13.0-17.5) gm/dL MCHC (31.0-37.0) g/dL Lymphocytes # (1.0-4.8) k/uL ABG pH (7.35-7.45) ABG pCO2 (35-45) mmHg ABG HCO3 (21-25) mmol/L ABG Total CO2 (19-24) mmol/L ABG O2 Saturation (94-97) % Chloride 108 H (98-107) mmol/L Carbon Dioxide 21 L (22-30) mmol/L BUN (9-20) mg/dL Creatinine (0.66-1.25) mg/dL Glucose (74-99) mg/dL POC Glucose (mg/dL) 129 H 101 H (75-99) mg/dL Magnesium (1.6-2.3) mg/dL Troponin I (0.000-0.034) ng/mL Total Protein (6.3-8.2) g/dL TSH (0.465-4.680) mIU/L Urine Protein (Negative) Urine Glucose (UA) (Negative) Urine Ketones (Negative) Urine Blood (Negative) Ur Leukocyte Esterase (Negative) Urine RBC (0-5) /hpf Urine WBC (0-5) /hpf Urine WBC Clumps (None) /hpf Urine Bacteria (None) /hpf Urine Mucus (None) /hpf 01/19/19 01/19/19 01/19/19 Range/Units 10:25 11:15 12:13 RBC (4.30-5.90) m/uL Hgb (13.0-17.5) gm/dL MCHC (31.0-37.0) g/dL Lymphocytes # (1.0-4.8) k/uL ABG pH (7.35-7.45) ABG pCO2 (35-45) mmHg ABG HCO3 (21-25) mmol/L ABG Total CO2 (19-24) mmol/L ABG O2 Saturation (94-97) % Chloride (98-107) mmol/L Carbon Dioxide (22-30) mmol/L BUN (9-20) mg/dL Creatinine (0.66-1.25) mg/dL Glucose (74-99) mg/dL POC Glucose (mg/dL) 111 H 111 H (75-99) mg/dL Magnesium (1.6-2.3) mg/dL Troponin I 5.780 H* (0.000-0.034) ng/mL Total Protein (6.3-8.2) g/dL TSH (0.465-4.680) mIU/L Urine Protein (Negative) Urine Glucose (UA) (Negative) Urine Ketones (Negative) Urine Blood (Negative) Ur Leukocyte Esterase (Negative) Urine RBC (0-5) /hpf Urine WBC (0-5) /hpf Urine WBC Clumps (None) /hpf Urine Bacteria (None) /hpf Urine Mucus (None) /hpf 01/19/19 Range/Units 16:54 RBC (4.30-5.90) m/uL Hgb (13.0-17.5) gm/dL MCHC (31.0-37.0) g/dL Lymphocytes # (1.0-4.8) k/uL ABG pH (7.35-7.45) ABG pCO2 (35-45) mmHg ABG HCO3 (21-25) mmol/L ABG Total CO2 (19-24) mmol/L ABG O2 Saturation (94-97) % Chloride (98-107) mmol/L Carbon Dioxide (22-30) mmol/L BUN (9-20) mg/dL Creatinine (0.66-1.25) mg/dL Glucose (74-99) mg/dL POC Glucose (mg/dL) 251 H (75-99) mg/dL Magnesium (1.6-2.3) mg/dL Troponin I (0.000-0.034) ng/mL Total Protein (6.3-8.2) g/dL TSH (0.465-4.680) mIU/L Urine Protein (Negative) Urine Glucose (UA) (Negative) Urine Ketones (Negative) Urine Blood (Negative) Ur Leukocyte Esterase (Negative) Urine RBC (0-5) /hpf Urine WBC (0-5) /hpf Urine WBC Clumps (None) /hpf Urine Bacteria (None) /hpf Urine Mucus (None) /hpf Microbiology - Last 24 Hours (Table) 01/18/19 22:30 Urine Culture - Preliminary Urine,Voided Thrombosis Risk Factor Assmnt - Choose All That Apply Each Risk Factor Represents 2 Points: Age 61-74 years Thrombosis Risk Factor Assessment Total Risk Factor Score: 2 Thrombosis Risk Factor Assessment Level: Low Risk Assessment and Plan Assessment: ASSESSMENT Diabetic ketoacidosis Non-ST elevation CO Urinary tract infection Anion gap metabolic acidosis Acute kidney injury CK D stage II to 3 Status post renal transplant Diabetes mellitus poorly controlled Hypomagnesemia Hypertension Hyperlipidemia Thyroid disorder GERD/reflux CVA/TIA in the past Diabetic neuropathy Neurogenic bladder History of skin cancer status post removal History of depression with anxiety in the past Nicotine dependence PLAN: Patient was initially started on an insulin drip for DKA, his anion gap has closed and he is off of insulin drip currently. Patient received 1 dose of ceftriaxone in the ED after getting urine cultures. Patient is currently on IV heparin for non-ST elevation CO. Nephrology Dr. Cast has evaluated the patient and restarted him on his immunosuppression therapy for renal transplant. Patient is scheduled for cardiac cath tomorrow morning. He'll be kept nothing by mouth tonight. Patient's home medications have been restarted. Further recommendations to follow depending on the progress of the patient.
[2019-01-19] MEDS: ATORVASTATIN 80 MG TAB PO SCH (20:28)
[2019-01-19] MEDS: SERTRALINE 100 MG TAB PO SCH (20:28)
[2019-01-19 21:08] LABS: Glucose,Whole Blood 259 mg/dL (75-99)
[2019-01-19] MEDS: INSULIN DETEMIR (LEVEMIR) 100 UNIT/ML SYR SQ SCH (21:27)
[2019-01-20] MEDS: SODIUM CHLORIDE 0.9% 1,000 ML IV SCH ×2 (00:54→20:44)
[2019-01-20] MEDS: PANTOPRAZOLE 40 MG TABLET PO SCH ×2 (06:18→17:44)
[2019-01-20] MEDS: LEVOTHYROXINE 50 MCG TAB PO SCH (06:18)
[2019-01-20 06:20] LABS: Glucose,Whole Blood 48 mg/dL (75-99)
[2019-01-20 06:44] LABS: Glucose,Whole Blood 167 mg/dL (75-99)
[2019-01-20] MEDS: METOPROLOL SUCCINATE (ER) 25 MG TAB.ER.24H PO SCH (08:23)
[2019-01-20] MEDS: CLOPIDOGREL 75 MG TAB PO SCH (08:23)
[2019-01-20] MEDS: MYCOPHENOLATE SODIUM DR 180 MG TABLET.DR PO SCH ×2 (08:23→19:51)
[2019-01-20] MEDS: TACROLIMUS 1 MG CAP PO SCH ×2 (08:24→19:51)
[2019-01-20] MEDS: INSULIN ASPART (NovoLOG) 100 UNIT/ML VIAL SQ SCH ×4 (08:24→21:26)
[2019-01-20 09:51] LABS: Basophils % (A) 0 %; Eosinophils # (A) 0.1 k/uL (0-0.7); Eosinophils % (A) 1 %; HGB 10.9 gm/dL (13.0-17.5); Hypochromasia Slight; Lymphocytes # (A) 1.1 k/uL (1.0-4.8); Lymphocytes % (A) 17 %; MCH 29.9 pg (25.0-35.0); MCHC 31.1 g/dL (31.0-37.0); MCV 96.1 fL (80.0-100.0); Monocytes # (A) 0.5 k/uL (0-1.0); Monocytes % (A) 8 %; Neutrophils # (A) 4.4 k/uL (1.3-7.7); Neutrophils % (A) 71 %; Platelet Count 176 k/uL (150-450); RBC 3.65 m/uL (4.30-5.90); WBC 6.2 k/uL (3.8-10.6)
[2019-01-20 10:44] LABS: Albumin 2.5 g/dL (3.5-5.0); Calcium 7.4 mg/dL (8.4-10.2); Magnesium 1.4 mg/dL (1.6-2.3); Potassium 3.7 mmol/L (3.5-5.1); Total Bilirubin 0.5 mg/dL (0.2-1.3); Total Protein 4.4 g/dL (6.3-8.2)
--- NOTE | 2019-01-20 10:53 | ECHOF ---
Referral Reason:elevated troponin MEASUREMENTS -------- HEIGHT: 175.3 cm WEIGHT: 63.5 kg BP: 161/90 RVIDd: 3.1 cm (< 3.3) IVSd: 1.6 cm (0.6 - 1.1) LVIDd: 4.7 cm (3.9 - 5.3) LVPWd: 1.5 cm (0.6 - 1.1) IVSs: 1.8 cm LVIDs: 3.0 cm LVPWs: 2.1 cm LA Diam: 3.8 cm (2.7 - 3.8) LAESV Index (A-L): 29.80 ml/m Ao Diam: 3.4 cm (2.0 - 3.7) AV Cusp: 2.0 cm (1.5 - 2.6) MV EXCURSION: 18.221 mm (> 18.000) MV EF SLOPE: 113 mm/s (70 - 150) EPSS: 0.5 cm MV E Jarret: 1.23 m/s MV DecT: 204 ms MV A Jarret: 0.95 m/s MV E/A Ratio: 1.30 RAP: 5.00 mmHg RVSP: 30.28 mmHg FINDINGS -------- Sinus rhythm. This was a technically good study. The left ventricular size is normal. There is moderate concentric left ventricular hypertrophy. O verall left ventricular systolic function is mildly impaired with, an EF between 45 - 50 %. The right ventricle is normal in size. LA is midly dilated 29-33ml/m2. The right atrium is normal in size. Interatrial and interventricular septum intact. The aortic valve is trileaflet and appears structurally normal. Trace amount of aortic regurgitatio n. Mild mitral regurgitation is present. Mild tricuspid regurgitation present. Right ventricular systolic pressure is normal at < 35 mmHg. Trace/mild (physiologic) pulmonic regurgitation. The aortic root size is normal. Normal inferior vena cava with normal inspiratory collapse consistent with estimated right atrial pre ssure of 5 mmHg. The inferior vena cava is mildly dilated. There is no pericardial effusion. CONCLUSIONS -------- 1. Sinus rhythm. 2. This was a technically good study. 3. The left ventricular size is normal. 4. There is moderate concentric left ventricular hypertrophy. 5. Overall left ventricular systolic function is mildly impaired with, an EF between 45 - 50 %. 6. The right ventricle is normal in size. 7. LA is midly dilated 29-33ml/m2. 8. The right atrium is normal in size. 9. Interatrial and interventricular septum intact. 10. The aortic valve is trileaflet and appears structurally normal. 11. Trace amount of aortic regurgitation. 12. Mild mitral regurgitation is present. 13. Mild tricuspid regurgitation present. 14. Right ventricular systolic pressure is normal at < 35 mmHg. 15. Trace/mild (physiologic) pulmonic regurgitation. 16. The aortic root size is normal. 17. Normal inferior vena cava with normal inspiratory collapse consistent with estimated right atrial pressure of 5 mmHg. 18. The inferior vena cava is mildly dilated. 19. There is no pericardial effusion. [employer]ATION MECH[employer]IC HELPER: Saray Koehler RDCS
--- NOTE | 2019-01-20 10:55 | PN ---
PROGRESS NOTE Mr. Wright is a 63-year-old male, history of renal transplant, history of coronary artery disease, who presented with DKA, mild chest discomfort, had elevation of troponin, peaking at 5. He is feeling better today. He denies any chest pain, his breathing is stable, he is denying any dizziness. No palpitation. He denies any nausea. He continues to be on Lipitor 80 mg daily, Plavix 75 mg daily. IV heparin, levothyroxine, metoprolol succinate 25 mg daily, Protonix, Prograf. PHYSICAL EXAMINATION: Blood pressure running in the 150s with a heart rate in the 60s. LUNGS: Clear. HEART: Regular rate and rhythm, S1, S2. No S3. No rub. ABDOMEN: Soft, nontender. EXTREMITIES: No edema. His hemoglobin today is 10.9. IMPRESSION: 1. Status post DKA, improving. 2. Evidence of non-STEMI could be exacerbated by the DKA or could be the initial cause. 3. Renal transplant with renal failure. 4. History of hyperlipidemia. RECOMMENDATION: From the cardiac standpoint, I will follow his renal function. If they are stable and improving, the patient would require coronary angiography to evaluate his status. I will discuss his case with Dr. Joe De Leon who is his primary radiologic therapist. He carries a high risk for worsening renal function in view of his baseline renal abnormalities. I have discussed those finding with the patient and he is full understanding and agreement. MMEDUL / HERMANN: [id number] /
[2019-01-20] MEDS: INSULIN DETEMIR (LEVEMIR) 100 UNIT/ML SYR SQ SCH ×2 (11:01→21:27)
[2019-01-20 11:13] LABS: Hemoglobin A1C 10.7 % (4.0-6.0)
[2019-01-20 12:01] LABS: Glucose,Whole Blood 114 mg/dL (75-99)
--- NOTE | 2019-01-20 14:22 | P.PN ---
Subjective Patient is seen in follow-up for acute allograft dysfunction and renal transplant management. Renal function is improved. Creatinine 2.0 today. Oral intake is good. No vomiting or diarrhea. Currently maintained on heparin drip. Potential cardiac catheterization tomorrow. Vital signs are stable. General: The patient appeared well nourished and normally developed. HEENT: Head exam is unremarkable. Neck is without jugular venous distension. LUNGS: Lungs are clear to auscultation and percussion. Breath sounds decreased. HEART: Rate and Rhythm are regular. First and second heart sounds normal. No murmurs, rubs or gallops. ABDOMEN: Abdominal exam reveals normal bowel sounds. Non-tender and non- distended. No evidence of peritonitis. EXTREMITITES: No clubbing, cyanosis, or edema. Objective - Vital Signs Vital signs: Vital Signs Temp 97.7 F 01/20/19 08:00 Pulse 57 L 01/20/19 12:00 Resp 18 01/20/19 12:00 BP 167/83 01/20/19 12:00 Pulse Ox 99 01/20/19 12:00 Intake & Output 01/19/19 01/20/19 01/20/19 18:59 06:59 18:59 Intake Total 634.754 552.014 0 Output Total 1601 500 Balance -966.246 52.014 0 Weight 63.503 kg 63.5 kg Intake: Intake, IV Titration 34.754 432.014 Amount Heparin Sod,Pork in 0.45% 112.014 NaCl 25,000 unit In 0.45 % NaCl 1 250ml.bag @ 12 UNITS/KG/HR 7.62 mls/hr IV .Q24H [facility] Rx#: [id number] Insulin Regular 100 unit 34.754 In Sodium Chloride 0.9% 100 ml @ 0.1 UNITS/KG/HR 6.414 mls/hr IV .[id number] [facility] Rx#:[id number] Sodium Chloride 0.9% 1, 320 000 ml @ 80 mls/hr IV . [id number] [facility] Rx#:[id number] Oral 600 120 0 Output: Urine 1601 500 Straight 800 Other: Voiding Method Self-Catheterization Self-Catheterization Self-Catheterization # Voids 1 # Bowel Movements 1 - Labs CBC & Chem 7: 01/20/19 09:11 12/02/19 09:11 Labs: Abnormal Lab Results - Last 24 Hours (Table) 01/18/19 01/19/19 01/19/19 Range/Units 21:55 16:54 18:30 RBC (4.30-5.90) m/uL Hgb (13.0-17.5) gm/dL Hct (39.0-53.0) % APTT (22.0-30.0) sec Chloride (98-107) mmol/L Carbon Dioxide (22-30) mmol/L BUN (9-20) mg/dL Creatinine (0.66-1.25) mg/dL Glucose (74-99) mg/dL POC Glucose (mg/dL) 251 H (75-99) mg/dL Hemoglobin A1c 10.7 H (4.0-6.0) % Calcium (8.4-10.2) mg/dL Magnesium (1.6-2.3) mg/dL Troponin I 4.070 H* (0.000-0.034) ng/mL Total Protein (6.3-8.2) g/dL Albumin (3.5-5.0) g/dL 01/19/19 01/19/19 01/20/19 Range/Units 18:30 20:58 01:57 RBC (4.30-5.90) m/uL Hgb (13.0-17.5) gm/dL Hct (39.0-53.0) % APTT 38.4 H 33.7 H (22.0-30.0) sec Chloride (98-107) mmol/L Carbon Dioxide (22-30) mmol/L BUN (9-20) mg/dL Creatinine (0.66-1.25) mg/dL Glucose (74-99) mg/dL POC Glucose (mg/dL) 259 H (75-99) mg/dL Hemoglobin A1c (4.0-6.0) % Calcium (8.4-10.2) mg/dL Magnesium (1.6-2.3) mg/dL Troponin I (0.000-0.034) ng/mL Total Protein (6.3-8.2) g/dL Albumin (3.5-5.0) g/dL 01/20/19 01/20/19 01/20/19 Range/Units 06:18 06:32 09:11 RBC 3.65 L (4.30-5.90) m/uL Hgb 10.9 L (13.0-17.5) gm/dL Hct 35.0 L (39.0-53.0) % APTT (22.0-30.0) sec Chloride (98-107) mmol/L Carbon Dioxide (22-30) mmol/L BUN (9-20) mg/dL Creatinine (0.66-1.25) mg/dL Glucose (74-99) mg/dL POC Glucose (mg/dL) 48 L 167 H (75-99) mg/dL Hemoglobin A1c (4.0-6.0) % Calcium (8.4-10.2) mg/dL Magnesium (1.6-2.3) mg/dL Troponin I (0.000-0.034) ng/mL Total Protein (6.3-8.2) g/dL Albumin (3.5-5.0) g/dL 01/20/19 01/20/19 01/20/19 Range/Units 09:11 09:11 12:00 RBC (4.30-5.90) m/uL Hgb (13.0-17.5) gm/dL Hct (39.0-53.0) % APTT 33.8 H (22.0-30.0) sec Chloride 115 H (98-107) mmol/L Carbon Dioxide 18 L (22-30) mmol/L BUN 31 H (9-20) mg/dL Creatinine 2.00 H (0.66-1.25) mg/dL Glucose 63 L (74-99) mg/dL POC Glucose (mg/dL) 114 H (75-99) mg/dL Hemoglobin A1c (4.0-6.0) % Calcium 7.4 L (8.4-10.2) mg/dL Magnesium 1.4 L (1.6-2.3) mg/dL Troponin I (0.000-0.034) ng/mL Total Protein 4.4 L (6.3-8.2) g/dL Albumin 2.5 L (3.5-5.0) g/dL Microbiology - Last 24 Hours (Table) 01/18/19 22:57 Blood Culture - Preliminary Blood No Growth after 24 hours 01/18/19 22:30 Urine Culture - Preliminary Urine,Voided Assessment and Plan Plan: Assessment: 1. Acute allograft dysfunction mostly prerenal secondary to intravascular volume depletion from hyperglycemia and vomiting/diarrhea. Creatinine 2.9 on ad mission - 2.0 today. 2. Chronic kidney disease stage IV with baseline creatinine in the range of 2. 2-2.5. 3. Diabetes mellitus. Better controlled; s/p insulin drip. 4. Hypomagnesemia secondary to diarrhea. Status post placement. Improved. 5. Anion gap metabolic acidosis secondary to DKA. Gap closed. No hyperchloremic acidosis from IV fluids. 6. Hypertension with chronic kidney disease. 7. Elevated troponins. Concern for acute coronary syndrome. Potential cardiac catheterization tomorrow. Currently on heparin drip. Plan: Maintain normal saline at 80 mL an hour. Maintain home antirejection medications. Patient is maintained on Prograf and Myfortic outpatient. Avoid nephrotoxins. Add oral sodium bicarbonate. Repeat electrolytes in the morning. Risk of worsening renal function postcardiac catheterization was discussed with the patient. He understands. Replace magnesium. 2 g IV today.
[2019-01-20] MEDS: hydrALAZINE HCL 20 MG/ML 1 ML VIAL IVP PRN (16:33)
[2019-01-20] MEDS: HEPARIN SOD,PORK IN 0.45% NACL 25,000 UNIT in 0.45% NACL 1 250ML.BAG IV SCH (16:34)
[2019-01-20] MEDS: MAGNESIUM SULFATE-D5W PMX 1 GM in DEXTROSE/WATER 1 100ML.BAG IVPB SCH ×2 (16:36→17:43)
[2019-01-20 17:14] LABS: Glucose,Whole Blood 198 mg/dL (75-99)
[2019-01-20] MEDS: ATORVASTATIN 80 MG TAB PO SCH (19:51)
[2019-01-20] MEDS: SERTRALINE 100 MG TAB PO SCH (19:52)
[2019-01-20] MEDS: SODIUM BICARBONATE TAB 650 MG TAB PO SCH (19:52)
[2019-01-20 20:53] LABS: Glucose,Whole Blood 118 mg/dL (75-99)
--- NOTE | 2019-01-20 22:02 | P.PN ---
Subjective Progress Note Date: 01/20/19 Principal diagnosis: Non-ST elevation LA, DKA and UTI Mr. Wright is a 63-year-old male with a past medical history of diabetes mellitus, renal transplant, CVA/TIA, GERD, hypertension, hyperlipidemia, thyroid disorder, CK D stage II to 3, neurogenic bladder coming in with a chief complaint of nausea and vomiting. Patient states that for the past couple of days he has been feeling sick that he could not get out of the bed. He missed his insulin doses. Patient straight caths himself every 8 hours and for the past couple of days he had to straight cath himself every 4 hours. Patient continued to have nausea and vomiting. He could not keep anything down. So he came into the emergency department. Patient denied having any chest pain or difficulty in breathing. No cough. No fever chills or rigors. No sick contacts. Patient has history of renal transplant and is on immunosuppression therapy. He states that he could not keep any of his pills down to his nausea and vomiting. In the emergency department patient had blood work done showing diabetic ketoacidosis and elevated troponins. Patient's urine analysis was positive for large leukocyte esterase and more than 182 WBCs. Urine culture has been obtained. So the patient has been admitted for non-ST elevation LA, DKA and UTI. On 01/20/2019 patient is lying in bed appears to be comfortable. Patient denied having any nausea or vomiting. Denies any abdominal pain. He states he feels much better compared to yesterday. Patient is requiring to straight cath himself every 8 hours. Patient denies having any chest pain or difficulty breathing. On reviewing the patient's labs his creatinine has trended down from 2.9 to 2.0. Active Medications Acetaminophen (Tylenol Tab) 650 mg PO Q6HR PRN PRN Reason: Mild Pain or Fever > 100.5 Aspirin (Aspirin) 81 mg PO DAILY [facility] Atorvastatin Calcium (Lipitor) 80 mg PO HS [facility] Last Admin: 01/20/19 19:51 Dose: 80 mg Documented by: Clopidogrel Bisulfate (Plavix) 75 mg PO DAILY [facility] Last Admin: 01/20/19 08:23 Dose: 75 mg Documented by: Heparin Sodium (Porcine) (Heparin) 0 unit IV PER PROTOCOL PRN; Protocol PRN Reason: Low PTT Hydralazine HCl (Apresoline) 10 mg IVP Q4HR PRN PRN Reason: Blood Pressure - High Last Admin: 01/20/19 16:33 Dose: 10 mg Documented by: Heparin Sodium/Sodium Chloride (25,000 unit/ Sodium Chloride) 250 mls @ 7.62 mls/hr IV .Q24H [facility]; Protocol Last Titration: 01/20/19 21:27 Dose: 21 units/kg/hr, 13.336 mls/hr Documented by: Sodium Chloride (Saline 0.9%) 1,000 mls @ 80 mls/hr IV .[id number] [facility] Last Admin: 01/20/19 20:44 Dose: Not Given Documented by: Ceftriaxone Sodium 1 gm/ (Sodium Chloride) 50 mls @ 100 mls/hr IVPB Q24HR [facility] Last Admin: 01/20/19 08:23 Dose: 100 mls/hr Documented by: Insulin Aspart (Novolog) 0 unit SQ ACHS [facility]; Protocol Last Admin: 01/20/19 21:26 Dose: Not Given Documented by: Insulin Detemir (Levemir) 16 unit SQ BID@0700,2100 [facility] Last Admin: 01/20/19 21:27 Dose: Not Given Documented by: Levothyroxine Sodium (Synthroid) 50 mcg PO 0630 [facility] Last Admin: 01/20/19 06:18 Dose: 50 mcg Documented by: Metoclopramide HCl (Reglan) 10 mg IM Q6HR PRN PRN Reason: Nausea And Vomiting Metoprolol Succinate (Toprol Xl) 25 mg PO DAILY [facility] Last Admin: 01/20/19 08:23 Dose: 25 mg Documented by: Miscellaneous Information (Magnesium Per Protocol) 1 each MISCELLANE DAILY PRN; Protocol PRN Reason: Per Protocol Mycophenolate Sodium (Myfortic) 720 mg PO BID [facility] Last Admin: 01/20/19 19:51 Dose: 720 mg Documented by: Naloxone HCl (Narcan) 0.2 mg IV Q2M PRN PRN Reason: Opioid Reversal Pantoprazole Sodium (Protonix) 40 mg PO AC-BID [facility] Last Admin: 01/20/19 17:44 Dose: 40 mg Documented by: Sertraline HCl (Zoloft) 100 mg PO HS [facility] Last Admin: 01/20/19 19:52 Dose: 100 mg Documented by: Sodium Bicarbonate (Sodium Bicarbonate Tab) 650 mg PO BID [facility] Last Admin: 01/20/19 19:52 Dose: 650 mg Documented by: Tacrolimus (Prograf) 2 mg PO Q12H [facility] Last Admin: 01/20/19 19:51 Dose: 2 mg Documented by: Objective - Vital Signs Vital signs: Vital Signs Temp 97.7 F 01/20/19 08:00 Pulse 57 L 01/20/19 12:00 Resp 18 01/20/19 12:00 BP 167/83 01/20/19 12:00 Pulse Ox 99 01/20/19 12:00 Intake & Output 01/19/19 01/20/19 01/20/19 18:59 06:59 18:59 Intake Total 634.754 552.014 0 Output Total 1601 500 Balance -966.246 52.014 0 Weight 63.503 kg 63.5 kg Intake: Intake, IV Titration 34.754 432.014 Amount Heparin Sod,Pork in 0.45% 112.014 NaCl 25,000 unit In 0.45 % NaCl 1 250ml.bag @ 12 UNITS/KG/HR 7.62 mls/hr IV .Q24H [facility] Rx#: [id number] Insulin Regular 100 unit 34.754 In Sodium Chloride 0.9% 100 ml @ 0.1 UNITS/KG/HR 6.414 mls/hr IV .[id number] [facility] Rx#:[id number] Sodium Chloride 0.9% 1, 320 000 ml @ 80 mls/hr IV . [id number] [facility] Rx#:[id number] Oral 600 120 0 Output: Urine 1601 500 Straight 800 Other: Voiding Method Self-Catheterization Self-Catheterization Self-Catheterization # Voids 1 # Bowel Movements 1 - Exam GEN. APPEARANCE: alert, in no apparent distress HEENT : Normocephalic. Pupils round and reactive to light. No pallor. No icterus. Poor dental hygiene. RESPIRATORY EXAM: Decreased breath sounds in all lung neri. Few crackles at the lower lung bases. CARDIOVASCULAR EXAM: regular rate, normal rhythm, normal heart sounds. No additional sounds. GI/ABDOMINAL EXAM: soft, normal bowel sounds. Mild epigastric tenderness. No guarding or rigidity. EXTREMITIES EXAM: No edema. NEUROLOGICAL EXAM: alert, oriented X3, no focal neurological deficits. PSYCHIATRIC EXAM: normal affect, normal mood SKIN EXAM: warm, dry, intact, normal color. Absent: rash - Labs CBC & Chem 7: 01/20/19 09:11 01/20/19 09:11 Labs: Abnormal Lab Results - Last 24 Hours (Table) 01/18/19 01/19/19 01/19/19 Range/Units 21:55 16:54 18:30 RBC (4.30-5.90) m/uL Hgb (13.0-17.5) gm/dL Hct (39.0-53.0) % APTT (22.0-30.0) sec Chloride (98-107) mmol/L Carbon Dioxide (22-30) mmol/L BUN (9-20) mg/dL Creatinine (0.66-1.25) mg/dL Glucose (74-99) mg/dL POC Glucose (mg/dL) 251 H (75-99) mg/dL Hemoglobin A1c 10.7 H (4.0-6.0) % Calcium (8.4-10.2) mg/dL Magnesium (1.6-2.3) mg/dL Troponin I 4.070 H* (0.000-0.034) ng/mL Total Protein (6.3-8.2) g/dL Albumin (3.5-5.0) g/dL 01/19/19 01/19/19 01/20/19 Range/Units 18:30 20:58 01:57 RBC (4.30-5.90) m/uL Hgb (13.0-17.5) gm/dL Hct (39.0-53.0) % APTT 38.4 H 33.7 H (22.0-30.0) sec Chloride (98-107) mmol/L Carbon Dioxide (22-30) mmol/L BUN (9-20) mg/dL Creatinine (0.66-1.25) mg/dL Glucose (74-99) mg/dL POC Glucose (mg/dL) 259 H (75-99) mg/dL Hemoglobin A1c (4.0-6.0) % Calcium (8.4-10.2) mg/dL Magnesium (1.6-2.3) mg/dL Troponin I (0.000-0.034) ng/mL Total Protein (6.3-8.2) g/dL Albumin (3.5-5.0) g/dL 01/20/19 01/20/19 01/20/19 Range/Units 06:18 06:32 09:11 RBC 3.65 L (4.30-5.90) m/uL Hgb 10.9 L (13.0-17.5) gm/dL Hct 35.0 L (39.0-53.0) % APTT (22.0-30.0) sec Chloride (98-107) mmol/L Carbon Dioxide (22-30) mmol/L BUN (9-20) mg/dL Creatinine (0.66-1.25) mg/dL Glucose (74-99) mg/dL POC Glucose (mg/dL) 48 L 167 H (75-99) mg/dL Hemoglobin A1c (4.0-6.0) % Calcium (8.4-10.2) mg/dL Magnesium (1.6-2.3) mg/dL Troponin I (0.000-0.034) ng/mL Total Protein (6.3-8.2) g/dL Albumin (3.5-5.0) g/dL 01/20/19 01/20/19 01/20/19 Range/Units 09:11 09:11 12:00 RBC (4.30-5.90) m/uL Hgb (13.0-17.5) gm/dL Hct (39.0-53.0) % APTT 33.8 H (22.0-30.0) sec Chloride 115 H (98-107) mmol/L Carbon Dioxide 18 L (22-30) mmol/L BUN 31 H (9-20) mg/dL Creatinine 2.00 H (0.66-1.25) mg/dL Glucose 63 L (74-99) mg/dL POC Glucose (mg/dL) 114 H (75-99) mg/dL Hemoglobin A1c (4.0-6.0) % Calcium 7.4 L (8.4-10.2) mg/dL Magnesium 1.4 L (1.6-2.3) mg/dL Troponin I (0.000-0.034) ng/mL Total Protein 4.4 L (6.3-8.2) g/dL Albumin 2.5 L (3.5-5.0) g/dL Microbiology - Last 24 Hours (Table) 01/18/19 22:57 Blood Culture - Preliminary Blood No Growth after 24 hours 01/18/19 22:30 Urine Culture - Preliminary Urine,Voided Assessment and Plan Assessment: ASSESSMENT Non-ST elevation LA Diabetic ketoacidosis - resolved Urinary tract infection Anion gap metabolic acidosis - resolved Acute kidney injury CK D stage II to 3 Status post renal transplant Diabetes mellitus poorly controlled Hypomagnesemia Hypertension Hyperlipidemia Thyroid disorder GERD/reflux CVA/TIA in the past Diabetic neuropathy Neurogenic bladder History of skin cancer status post removal History of depression with anxiety in the past Nicotine dependence PLAN: Patient was initially started on an insulin drip for DKA, his anion gap has closed and he is off of insulin drip now. Continue with ceftriaxone for his UTI, urine culture is positive for gram-negative bacilli. Patient is currently on IV heparin for non-ST elevation LA, Cardiology on board and planning for cardiac cath tomorrow morning. Nephrology Dr. Cast has evaluated the patient and restarted him on his immunosuppression therapy for renal transplant. He'll be kept nothing by mouth tonight. Further recommendations to follow depending on the progress of the patient.
[2019-01-21] MEDS: SODIUM CHLORIDE 0.9% 1,000 ML IV SCH ×2 (02:50→15:09)
[2019-01-21 05:10] LABS: Calcium 8.8 mg/dL (8.4-10.2); Magnesium 1.9 mg/dL (1.6-2.3); Potassium 4.6 mmol/L (3.5-5.1)
[2019-01-21 06:38] LABS: Glucose,Whole Blood 191 mg/dL (75-99)
[2019-01-21] MEDS: LEVOTHYROXINE 50 MCG TAB PO SCH (06:50)
[2019-01-21] MEDS: PANTOPRAZOLE 40 MG TABLET PO SCH ×2 (06:50→18:07)
[2019-01-21] MEDS: INSULIN ASPART (NovoLOG) 100 UNIT/ML VIAL SQ SCH ×4 (08:57→21:43)
[2019-01-21] MEDS: CLOPIDOGREL 75 MG TAB PO SCH (08:58)
[2019-01-21] MEDS: METOPROLOL SUCCINATE (ER) 25 MG TAB.ER.24H PO SCH ×2 (08:58→20:21)
[2019-01-21] MEDS: MYCOPHENOLATE SODIUM DR 180 MG TABLET.DR PO SCH ×2 (08:59→20:20)
[2019-01-21] MEDS: SODIUM BICARBONATE TAB 650 MG TAB PO SCH ×2 (08:59→20:23)
[2019-01-21] MEDS: TACROLIMUS 1 MG CAP PO SCH ×2 (08:59→20:20)
[2019-01-21] MEDS: INSULIN DETEMIR (LEVEMIR) 100 UNIT/ML SYR SQ SCH ×2 (09:00→20:20)
[2019-01-21] MEDS ORDERED: ASPIRIN 81 MG PO SCH (09:00)
[2019-01-21] MEDS ORDERED: ASPIRIN 325 MG TAB PO STA (10:27)
[2019-01-21] MEDS ORDERED: ALPRAZolam 0.5 MG TAB PO PRN (10:27)
[2019-01-21] MEDS ORDERED: ALPRAZolam 0.25 MG TAB PO PRN (10:27)
[2019-01-21] MEDS ORDERED: NITROGLYCERIN SL TABS 0.4 MG TAB SUBLINGUAL PRN (10:27)
[2019-01-21] MEDS ORDERED: SODIUM CHLORIDE 0.9% 1,000 ML in EMPTY BAG 1 BAG IV ONE (10:27)
[2019-01-21] MEDS: ATORVASTATIN 80 MG TAB PO SCH ×2 (10:35→20:20)
--- NOTE | 2019-01-21 10:53 | PN ---
PROGRESS NOTE Mr. Wright is a 63-year-old male with history of end-stage renal disease, status post transplant, history of coronary artery disease who presented with DKA and myocardial infarction. His troponin was up to 5. He is feeling well today. His breathing is stable. He is denying any chest pain. No dizziness. No palpitation. He denies any nausea. He continues to be at this time on IV heparin, Lipitor 80 mg daily, Plavix 75 mg daily, metoprolol succinate 25 mg daily. PHYSICAL EXAMINATION: Blood pressure 162/90 with a heart rate in the 60s. LUNGS: Clear. HEART: Regular rate and rhythm, S1, S2. No S3 with systolic ejection murmur, no diastolic murmur, no rub. ABDOMEN: Soft, nontender. EXTREMITIES: No edema. LAB DATA: Revealed BUN and creatinine 31 and 2.1, potassium 4.6. IMPRESSION: 1. Status post non ST-segment elevation myocardial infarction. 2. Diabetic ketoacidosis, resolved. 3. Diabetes mellitus. 4. Status post renal transplant. 5. History of hyperlipidemia. 6. Hypertension. RECOMMENDATION: I have discussed with the patient and his the finding, he will tentatively be scheduled to undergo coronary angiography by Dr. Joe De Leon tomorrow to further assess his coronary anatomy and guide his treatment. The risks from the procedure were discussed with them as well as the risk of worsening renal function. Depending on his findings, further recommendation will be made. MMEDUL / IJN: [id number] /
[2019-01-21 12:39] LABS: Glucose,Whole Blood 342 mg/dL (75-99)
--- NOTE | 2019-01-21 13:34 | P.PN ---
Subjective 63-year-old male with a past medical history of diabetes mellitus, renal transplant, CVA/TIA, GERD, hypertension, hyperlipidemia, thyroid disorder, CK D stage II to 3, neurogenic bladder coming in with a chief complaint of nausea and vomiting. Patient states that for the past couple of days he has been feeling sick that he could not get out of the bed. He missed his insulin doses. Patient straight caths himself every 8 hours and for the past couple of days he had to straight cath himself every 4 hours. Patient continued to have nausea and vomiting. He could not keep anything down. So he came into the emergency department. Patient denied having any chest pain or difficulty in breathing. No cough. No fever chills or rigors. No sick contacts. Patient has history of renal transplant and is on immunosuppression therapy. He states that he could not keep any of his pills down to his nausea and vomiting. In the emergency department patient had blood work done showing diabetic ketoacidosis and elevated troponins. Patient's urine analysis was positive for large leukocyte esterase and more than 182 WBCs. Urine culture has been obtained. So the patient has been admitted for non-ST elevation [place], DKA and UTI. On 01/20/2019 patient is lying in bed appears to be comfortable. Patient denied having any nausea or vomiting. Denies any abdominal pain. He states he feels much better compared to yesterday. Patient is requiring to straight cath himself every 8 hours. Patient denies having any chest pain or difficulty breathing. On reviewing the patient's labs his creatinine has trended down from 2.9 to 2.0. 01/21/2019 No overnight events patient will undergo cardiac catheterization tomorrow. Nya ent baseline creatinine is around 2 and patient present creatinine is 2. Constitutional: Denied any fatigue denied any fever. Cardio vascular: denied any chest pain, palpitations Gastrointestinal denied any nausea vomiting Pulmonary: Denied any shortness of breath cough Neurologic denied any new focal deficits All inpatient medications were reviewed and appropriate changes in these medications as dictated in the interval history and assessment and plan. Objective - Vital Signs Vital signs: Vital Signs Temp 98.5 F 01/21/19 04:00 Pulse 69 01/21/19 04:00 Resp 18 01/21/19 04:00 BP 162/91 01/21/19 04:00 Pulse Ox 97 01/21/19 04:00 Intake & Output 01/20/19 01/21/19 01/21/19 18:59 06:59 18:59 Intake Total 792.399 55.821 240 Output Total 500 Balance 792.399 -444.179 240 Weight 64.5 kg Intake: Intake, IV Titration 134.399 55.821 Amount Heparin Sod,Pork in 0.45% 134.399 55.821 NaCl 25,000 unit In 0.45 % NaCl 1 250ml.bag @ 12 UNITS/KG/HR 7.62 mls/hr IV .Q24H [facility] Rx#: [id number] Oral 658 240 Output: Urine 500 Other: Voiding Method Self-Catheterization Self-Catheterization # Voids 1 1 - Exam GEN. APPEARANCE: alert, in no apparent distress HEENT : Normocephalic. Pupils round and reactive to light. No pallor. No icterus. Poor dental hygiene. RESPIRATORY EXAM: Decreased breath sounds in all lung neri. Few crackles at the lower lung bases. CARDIOVASCULAR EXAM: regular rate, normal rhythm, normal heart sounds. No additional sounds. GI/ABDOMINAL EXAM: soft, normal bowel sounds. Mild epigastric tenderness. No guarding or rigidity. EXTREMITIES EXAM: No edema. NEUROLOGICAL EXAM: alert, oriented X3, no focal neurological deficits. PSYCHIATRIC EXAM: normal affect, normal mood SKIN EXAM: warm, dry, intact, normal color. Absent: rash - Labs CBC & Chem 7: 01/20/19 09:11 01/21/19 03:37 Labs: Abnormal Lab Results - Last 24 Hours (Table) 01/20/19 01/20/19 01/20/19 Range/Units 17:13 20:25 20:52 APTT 31.7 H (22.0-30.0) sec Chloride (98-107) mmol/L Carbon Dioxide (22-30) mmol/L BUN (9-20) mg/dL Creatinine (0.66-1.25) mg/dL Glucose (74-99) mg/dL POC Glucose (mg/dL) 198 H 118 H (75-99) mg/dL 01/21/19 01/21/19 01/21/19 Range/Units 03:37 03:39 06:37 APTT 70.1 H (22.0-30.0) sec Chloride 112 H (98-107) mmol/L Carbon Dioxide 21 L (22-30) mmol/L BUN 31 H (9-20) mg/dL Creatinine 2.10 H (0.66-1.25) mg/dL Glucose 169 H (74-99) mg/dL POC Glucose (mg/dL) 191 H (75-99) mg/dL 01/21/19 Range/Units 12:38 APTT (22.0-30.0) sec Chloride (98-107) mmol/L Carbon Dioxide (22-30) mmol/L BUN (9-20) mg/dL Creatinine (0.66-1.25) mg/dL Glucose (74-99) mg/dL POC Glucose (mg/dL) 342 H (75-99) mg/dL Microbiology - Last 24 Hours (Table) 01/18/19 22:30 Urine Culture - Final Urine,Voided Klebsiella pneumoniae 01/18/19 22:57 Blood Culture - Preliminary Blood No Growth after 48 hours Assessment and Plan Plan: Non-ST elevation MIwe'll continue with IV heparin and patient will undergo cardiac catheterization tomorrow Diabetic ketoacidosis - resolved Urinary tract infectionin utero Rocephin and the patient has glandular pneumonia which is pansensitive except for ampicillin and Levaquin. Anion gap metabolic acidosis - resolved Acute kidney injury: Improved CK D stage II to 3 Status post renal transplant: Continue with the Minocin suppressive therapy patient denied any pain in the transplanted kidney area. Diabetes mellitus poorly controlled Hypomagnesemia Hypertension Hyperlipidemia hypothyroidism GERD/reflux CVA/TIA in the past Diabetic neuropathy Neurogenic bladder History of depression with anxiety in the past Nicotine dependence
[2019-01-21] MEDS: HEPARIN SOD,PORK IN 0.45% NACL 25,000 UNIT in 0.45% NACL 1 250ML.BAG IV SCH (15:09)
--- NOTE | 2019-01-21 15:09 | CDI ---
Documentation Clarification Form Date: 01/21/2019 2:59:27 PM From: Gita Allen CCS, CCDS Admit Date: 01/19/2019 12:43:00 AM Patient Name: Artem Wright Visit Number: [id number] Discharge Date: ATTENTION: The Clinical Documentation Specialists (CDI) and [facility] Coding Staff appreciate your assistance in clarifying documentation. Please respond to the clarification below the line at the bottom and electronically sign. The CDI & [facility] Coding staff will review the response and follow-up if needed. Please note: Queries are made part of the Legal Health Record. If you have any questions, please contact the author of this message via ITS. Dr. Jeny Garcia: Per the History & Physical and subsequent documentation, patient is diagnosed with UTI. Per the history the patient has recurrent UTIs & straight caths q8 hrs. History/Risk Factors: Recurrent UTIs, Incontinent of urine, C Diff, IDDM, Bilateral neuropathy of legs & feet, Nearly blind, ESRD previously on hemo & peritoneal dialysis, Renal transplant, CVA/TIA, GERD, Hypertension, Hyperlipidemia, hypothyroidism, CKD II-III, Neurogenic bladder. Clinical Indicators: Presented with nausea & vomiting, missed Insulin doses, labs in ED showed diabetic ketoacidosis with elevated troponins, UA was positive for large leukocyte esterase & >182 WBCs. Admitted with NSTEMI, DKA & UTI. Urine culture, final: Klebsiella pneumoniae Treatment: IV fluid bolus, IV fluid rate 100, IV Insulin drip, IV Rocephin, IV MagSulfate, IV Heparin drip, IV Apresoline. In your professional opinion, can you please clarify the etiology of the UTI, if known? UTI related to self catheterization UTI not related to self catheterization Other condition, please specify Unable to determine If an infective organism is present, please specify cause and effect relationship if applicable. (Last Revision: May 2017) UTI related to self catheterization MTDD
[2019-01-21] MEDS ORDERED: Magnesium Replacement Protocol 1 EACH MISC MISCELLANE PRN (16:32)
[2019-01-21 17:38] LABS: Glucose,Whole Blood 146 mg/dL (75-99)
[2019-01-21] MEDS: hydrALAZINE HCL 20 MG/ML 1 ML VIAL IVP PRN ×2 (18:03→20:23)
[2019-01-21] MEDS: MAGNESIUM SULFATE-D5W PMX 1 GM in DEXTROSE/WATER 1 100ML.BAG IVPB SCH ×2 (18:05→20:15)
--- NOTE | 2019-01-21 20:11 | PN ---
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 He is scheduled for cardiac cath tomorrow. His serum creatinine has improved from 2.9 to 2.1 mg/dL, which is at his baseline. On examination this morning, blood pressure was 176/83, heart rate 72 per minute. He is afebrile. EXAMINATION OF THE HEART: S1 and S2. EXAMINATION OF LUNGS: Decreased breath sounds at bases. ABDOMEN: Soft, non-tender. Examination of lower extremities shows no evidence of edema. 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 Labs show sodium 140, potassium 4.6. CO2 is 21, chloride 112, BUN 31, creatinine 2.1 mg/dL. ASSESSMENT: 1. Acute kidney injury, currently improved. 2. 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 Renal function back at baseline. 3. Status post -donor renal allograft in 2010 at [facility] with chronic allograft nephropathy with baseline creatinine around 2 mg/dL. 4. Hypertension, currently uncontrolled. Patient is maintained on metoprolol 25 mg daily. He is not on any other antihypertensive medications. Patient was not on any significant antihypertensive medications prior to admission; however, it appears that his blood pressure has remained elevated throughout. I believe he has significant orthostatic hypotension as well. I will add Coreg and we can try to avoid IV hydralazine p.r.n. if blood pressure is better controlled. MMODL / IJN: [id number] /
[2019-01-21] MEDS: SERTRALINE 100 MG TAB PO SCH (20:20)
[2019-01-21 20:43] LABS: Glucose,Whole Blood 109 mg/dL (75-99)
[2019-01-22] MEDS: LEVOTHYROXINE 50 MCG TAB PO SCH (03:08)
[2019-01-22] MEDS: CLOPIDOGREL 75 MG TAB PO SCH (03:08)
[2019-01-22] MEDS: PANTOPRAZOLE 40 MG TABLET PO SCH (03:08)
[2019-01-22] MEDS: METOPROLOL SUCCINATE (ER) 25 MG TAB.ER.24H PO SCH (03:08)
[2019-01-22] MEDS: SODIUM CHLORIDE 0.9% 1,000 ML IV SCH (03:22)
[2019-01-22] MEDS ORDERED: ATORVASTATIN 80 MG TAB PO ONE (06:00)
[2019-01-22] MEDS ORDERED: ASPIRIN 325 MG TAB PO ONE (06:00)
[2019-01-22 06:25] LABS: Glucose,Whole Blood 313 mg/dL (75-99)
[2019-01-22 06:32] LABS: Calcium 8.2 mg/dL (8.4-10.2); Magnesium 1.5 mg/dL (1.6-2.3); Potassium 5.1 mmol/L (3.5-5.1)
[2019-01-22] MEDS: INSULIN ASPART (NovoLOG) 100 UNIT/ML VIAL SQ SCH ×2 (06:43→12:51)
[2019-01-22] MEDS: INSULIN DETEMIR (LEVEMIR) 100 UNIT/ML SYR SQ SCH (06:45)
[2019-01-22] MEDS ORDERED: LIDOCAINE 1% INJ 10MG/ML (20 ML MDV) ONE (07:12)
[2019-01-22] MEDS ORDERED: NITROGLYCERIN SL TABS 0.4 MG TAB SUBLINGUAL ONE ×2 (07:16→07:21)
[2019-01-22] MEDS ORDERED: MIDAZOLAM 2 MG/2 ML VIAL IVP ONE (07:21)
[2019-01-22] MEDS ORDERED: LIDOCAINE 1% INJ 10MG/ML (20 ML MDV) SQ ONE (07:25)
[2019-01-22] MEDS ORDERED: IV FLUID CONTINUATION 1,000 ML IV ONE (07:31)
[2019-01-22] MEDS ORDERED: HEPARIN SODIUM 1,000 UN/ML (10ML VL) ONE (07:48)
[2019-01-22] MEDS ORDERED: HEPARIN SODIUM 1,000 UN/ML (10ML VL) IV ONE (07:50)
[2019-01-22] MEDS ORDERED: NITROGLYCERIN 1000MCG/10ML SYRINGE INTRACORON ONE ×2 (07:55→08:00)
[2019-01-22] MEDS ORDERED: ADENOSINE 90 MG in SODIUM CHLORIDE 0.9% 60 ML IVP ONE (08:02)
[2019-01-22] MEDS ORDERED: IOPAMIDOL-370 100ML BTL INJ ONE (08:03)
[2019-01-22] MEDS ORDERED: RX INFO: IV CONTRAST WAS GIVEN 1 EACH MISC MISCELLANE PRN (08:39)
[2019-01-22] MEDS ORDERED: SODIUM CHLORIDE 0.9% 1,000 ML IV SCH (08:45)
[2019-01-22] MEDS ORDERED: hydrALAZINE HCL 25 MG TAB PO SCH (09:00)
--- NOTE | 2019-01-22 09:06 | CC ---
CARDIAC CATHETERIZATION REPORT DATE OF SERVICE: 01/22/2019. PROCEDURE: 1. Left heart catheterization and coronary angiography. 2. Fractional flow reserve assessment of proximal LAD lesion. PERFORMED BY: Dr. Joe De Leon. Moderate conscious sedation time was 45 minutes. Patient was administered Versed. His oxygen saturation, hemodynamics and EKG were monitored closely. CLINICAL INFORMATION: Mr. Artem Wright is a 63-year-old gentleman with a known history of end-stage renal disease, status post renal transplantation in 2010 with a creatinine that runs in the range of 1.9-2.0. He presented with diabetic ketoacidosis and had a non-ST elevation NE on this hospitalization and was advised coronary angiography after due discussion regarding the risks, benefits, options and rationale. PROCEDURE NOTE: Under local anesthesia and strict aseptic precautions, a 6-Maldivian introducer was placed in the right femoral artery. Using standard Chidi catheters, I performed coronary angiography and noted that there was a moderate lesion in the proximal LAD and therefore I recommended FFR. FFR was performed in the same setting. Patient received 4500 units of heparin and intracoronary nitroglycerin. A Vratay wire was used to cross the lesion. IFR was 0.87. FFR was 0.82. This was performed after giving him adenosine as per protocol. Patient did not have any significant symptoms. FFR was therefore unremarkable with 2 separate values of about 0.83 and 0.82. The sheath was then taken out and Angio-Seal device used to secure hemostasis and patient was sent to the room in stable condition. Results were discussed with the patient and family. He has a total occlusion of the RCA and FFR of LAD was negative. Moderate lesion in circumflex is noted. Distal left main has 15% lesion. He was advised medical therapy. CARDIAC CATHETERIZATION FINDINGS: The end-diastolic pressure was 10 mmHg without any gradient across aortic valve. CORONARY ANGIOGRAPHY FINDINGS: 1. RIGHT CORONARY ARTERY: Dominant vessel, totally occluded in the proximal portion without much antegrade flow. 2. There are rich collaterals coming from the left system opacifying the main trunk of the RCA and the branches. 3. LEFT MAIN CORONARY. Distal left main has about a 15% lesion unchanged from before. Moderate calcification is noted. It bifurcates into LAD and circumflex. 4. LEFT ANTERIOR DESCENDING CORONARY ARTERY: In multiple views, proximal LAD operates takeoff as the diagonal branch came off. There was area of about 50% lesion, highly suspicious that it could be more significant. Beyond this, the LAD caliber was good. The calcification was noted, it gave off 2 diagonal branches and went all the way to the apex, curved over the apex to supply the inferoapical portion and provided rich collaterals to the distal branches of the RCA including the PDA branch. Proximal LAD therefore had about a 50% lesion in a calcified area just after its takeoff. 5. LEFT POSTERIOR CIRCUMFLEX CORONARY ARTERY: Technically this is a nondominant vessel. 6. Circumflex is a nondominant vessel. Previously, the circumflex marginal was stented in the midportion, that area is widely patent with good flow. Very proximally at the ostium, there is about a 40% narrowing of the circumflex, best seen in the MOHR caudal projection. There is moderate calcification. 7. There are rich collaterals that are coming both from LAD and circumflex opacifying the distal branches of the RCA as well as the main trunk of RCA. 8. Left ventriculogram was not performed. 9. FFR was 0.82 and 0.83 respectively. FINAL IMPRESSION: 1. This patient has a right dominant system, total occlusion of the right coronary artery, known previous inferior myocardial infarction. There is a 15% left main disease distally unchanged. Proximal LAD had a 50% lesion and ostial circumflex had a 40% lesion. Previously stented obtuse marginal was widely patent. There are rich collaterals from both branches of the left system opacifying the distal branches of right coronary artery and the main trunk. 2. FFR of LAD was negative suggesting that the lesion is moderate, not critical. RECOMMENDATIONS: Findings were discussed with the patient and family. I am recommending aggressive medical therapy with risk factor modification. No surgical intervention at this time. I will optimize blood pressure control. MMODL / IJN: [id number] /
--- NOTE | 2019-01-22 09:33 | CDI ---
Documentation Clarification Form Date: 01/22/2019 9:17:44 AM From: Gita PaulaAllenASHLEE jones, CCDS Admit Date: 01/19/2019 12:43:00 AM Patient Name: Artem Wright Visit Number: [id number] Discharge Date: ATTENTION: The Clinical Documentation Specialists (CDI) and [facility] Coding Staff appreciate your assistance in clarifying documentation. Please respond to the clarification below the line at the bottom and electronically sign. The CDI & [facility] Coding staff will review the response and follow-up if needed. Please note: Queries are made part of the Legal Health Record. If you have any questions, please contact the author of this message via ITS. Dr. Mahsa Montero: Per the 01/22 nephrology progress note: "Hypertension, currently uncontrolled. Patient is maintained on Metoprolol 25 mg daily. He is not on any other antihypertensive medications. Patient was not on any significant antihypertensive medications prior to admission; however, it appears that his blood pressure has remained elevated throughout. I believe he has significant orthostatic hypotension as well. I will add Coreg and we can try to avoid IV hydralazine p.r.n. if blood pressure is better controlled." History/Risk Factors: DM, Kidney transplant, CAD, CVA/TIA, GERD, Hypertension, Hyperlipidemia, Hypothyroi, CKD II-III, Neurogenic bladder, [place], Recurrent UTIs: self caths and current smoker. Clinical Indicators: Presented with nausea & vomiting. Diagnosed with NSTEMI, DKA, UTI, Metabolic acidosis & PILAR. BP: 01/18: 160/95, 01/19: 179/94^; Rt arm: 194/96^; 01/20 Rt arm: 161/90^; 01/21: 162/91^-181/88^; 01/22 Rt arm: 158/90 Labs: BUN 46, Cr 2.90, Glucose 331, Hgb A1c 10.7, Troponin 0.141, 4.600, 5.780, TSH 6.360. Treatment: IV fluid bolus, Insulin drip, IV Rocephin, IV Heparin, IV MagSulfate, IV Apresoline, Nitro sl, IV Adenosine, Coreg added 01/21 per nephrology note. In your professional opinion, can you please clarify the following: Orthostatic Hypotension ruled out: Orthostatic Hypotension ruled in Hypertension, please specify type & cause if known: o Urgency o Emergency o Other: Unable to determine Other Condition, please specify Unable to determine (Last Revision: November 2016) orthostatic hypotension ruled in Hypertensive urgency MTDD
[2019-01-22] MEDS: TACROLIMUS 1 MG CAP PO SCH (10:04)
[2019-01-22] MEDS: MYCOPHENOLATE SODIUM DR 180 MG TABLET.DR PO SCH (10:04)
[2019-01-22] MEDS: SODIUM BICARBONATE TAB 650 MG TAB PO SCH (10:04)
[2019-01-22] MEDS: MAGNESIUM SULFATE-D5W PMX 1 GM in DEXTROSE/WATER 1 100ML.BAG IVPB SCH ×2 (10:05→14:17)
[2019-01-22 10:30] VITALS: BMI 21.1
[2019-01-22] MEDS ORDERED: MAGNESIUM SULFATE-D5W PMX 1 GM in DEXTROSE/WATER 1 100ML.BAG IVPB SCH (11:15)
[2019-01-22 12:26] LABS: Glucose,Whole Blood 183 mg/dL (75-99)
[2019-01-22] MEDS: HEPARIN SOD,PORK IN 0.45% NACL 25,000 UNIT in 0.45% NACL 1 250ML.BAG IV SCH (12:52)
--- NOTE | 2019-01-22 13:54 | P.DS ---
Providers Date of admission: 01/19/19 00:43 Expected date of discharge: 01/22/19 Attending physician: Nate Forde Consults: 01/19/19 00:43 Consult Physician Urgent Consulting Provider: [facility] Consult Reason/Comments: nstemi Do you want consulting provider notified?: Yes 01/19/19 00:44 Consult Physician Urgent Consulting Provider: Wilian Cast Consult Reason/Comments: ckd, hx renal transplant Do you want consulting provider notified?: Yes Primary care physician: [facility] Hospital Course: Final diagnosis Non-ST elevation PA Diabetic ketoacidosis Urinary tract infection Anion gap metabolic acidosis Acute kidney injury CK D stage II to 3 Status post renal transplant Diabetes mellitus poorly controlled Hypomagnesemia Hypertension Hyperlipidemia hypothyroidism GERD/reflux CVA/TIA in the past Diabetic neuropathy Neurogenic bladder History of depression with anxiety in the past Nicotine dependence Discharge disposition Patient is being discharged in a stable condition with guarded prognosis to home and will follow-up with the [place] [facility] upon discharge. Patient will also follow- up with cardiology in the outpatient setting in 1-2 weeks. Total time taken is 35 minutes. History of present illness 63-year-old male with a past medical history of diabetes mellitus, renal transplant, CVA/TIA, GERD, hypertension, hyperlipidemia, thyroid disorder, CK D stage II to 3, neurogenic bladder coming in with a chief complaint of nausea and vomiting. Patient states that for the past couple of days he has been feeling sick that he could not get out of the bed. He missed his insulin doses. Patient straight caths himself every 8 hours and for the past couple of days he had to straight cath himself every 4 hours. Patient continued to have nausea and vomiting. He could not keep anything down. So he came into the emergency department. Patient denied having any chest pain or difficulty in breathing. No cough. No fever chills or rigors. No sick contacts. Patient has history of renal transplant and is on immunosuppression therapy. He states that he could not keep any of his pills down to his nausea and vomiting. In the emergency department patient had blood work done showing diabetic ketoacidosis and elevated troponins. Patient's urine analysis was positive for large leukocyte esterase and more than 182 WBCs. Urine culture has been obtained. So the patient has been admitted for non-ST elevation PA, DKA and UTI. On 01/20/2019 patient is lying in bed appears to be comfortable. Patient denied having any nausea or vomiting. Denies any abdominal pain. He states he feels much better compared to yesterday. Patient is requiring to straight cath himself every 8 hours. Patient denies having any chest pain or difficulty breathing. On reviewing the patient's labs his creatinine has trended down from 2.9 to 2.0. 01/21/2019 No overnight events patient will undergo cardiac catheterization tomorrow. Patient baseline creatinine is around 2 and patient present creatinine is 2. Constitutional: Denied any fatigue denied any fever. Cardio vascular: denied any chest pain, palpitations Gastrointestinal denied any nausea vomiting Pulmonary: Denied any shortness of breath cough Neurologic denied any new focal deficits 2018 Patient is lying in bed in no acute distress and underwent cardiac catheterization today showing total occlusion of the right coronary artery with known previous inferior myocardial infarction, 15% left main disease distally unchanged, proximal LAD had a 50% lesion and ostial circumflex had a 40% lesion that was previously stented and is widely patent. The FFR of the LAD was negative suggesting that the lesion is moderate not care critical and patient will be maximized on aggressive medical therapy along with risk factor modifications. No surgical interventions recommended at this time. Patient will follow-up with cardiology in the outpatient setting in 1-2 weeks as discussed. Patient will also follow-up with nephrology in 1-2 weeks. On exam vital signs are stable. Temp is 98.6F, pulse is 81, respirations are 18, blood pressure is 158/90, oxygen saturation is 95% on room air. Cardio S1, S2 are present. Respiratory system shows diminished breath sounds at the bases with a few scattered rhonchi noted. Abdomen is soft, thin, nontender. Nervous system shows no focal deficits. Please refer to medication reconciliation sheet for a list of medications. Patient Condition at Discharge: Stable Plan - Discharge Summary New Discharge Prescriptions: New hydrALAZINE HCL [Apresoline] 25 mg PO TID 30 Days #90 tab amLODIPine [Norvasc] 5 mg PO HS 30 Days #30 tab Clopidogrel [Plavix] 75 mg PO DAILY 30 Days #30 tab Sodium Bicarbonate Tab 650 mg PO BID 30 Days #60 tab Metoprolol Succinate (ER) [Toprol XL] 25 mg PO BID 30 Days #60 tab.er.24h Cefuroxime Axetil [Ceftin] 500 mg PO BID 3 Days #6 tab Continue Sertraline [Zoloft] 100 mg PO HS Aspirin 81 mg PO DAILY #30 chew Atorvastatin [Lipitor] 80 mg PO HS #30 tab Nitroglycerin Sl Tabs [Nitrostat] 0.4 mg SL Q5M PRN #25 tab PRN Reason: Chest Pain Omeprazole [PriLOSEC] 20 mg PO AC-BID Mycophenolate Sodium [Mycophenolic Acid] 720 mg PO BID Levothyroxine Sodium [Synthroid] 50 mcg PO DAILY Tacrolimus [Prograf] 3 mg PO Q12H Insulin Aspart [NovoLOG Flexpen] 0 unit SQ TID PRN PRN Reason: insulin to scale Insulin Detemir [Levemir Flextouch] 16 units SQ BID Discharge Medication List Sertraline [Zoloft] 100 mg PO HS 09/21/13 [History] Aspirin 81 mg PO DAILY #30 chew 09/27/15 [Rx] Atorvastatin [Lipitor] 80 mg PO HS #30 tab 09/27/15 [Rx] Nitroglycerin Sl Tabs [Nitrostat] 0.4 mg SL Q5M PRN #25 tab 09/27/15 [Rx] Levothyroxine Sodium [Synthroid] 50 mcg PO DAILY 03/13/17 [History] Mycophenolate Sodium [Mycophenolic Acid] 720 mg PO BID 03/13/17 [History] Omeprazole [PriLOSEC] 20 mg PO AC-BID 03/13/17 [History] Tacrolimus [Prograf] 3 mg PO Q12H 12/17/17 [History] Insulin Aspart [NovoLOG Flexpen] 0 unit SQ TID PRN 01/17/18 [History] Insulin Detemir [Levemir Flextouch] 16 units SQ BID 09/11/18 [History] Cefuroxime Axetil [Ceftin] 500 mg PO BID 3 Days #6 tab 01/22/19 [Rx] Clopidogrel [Plavix] 75 mg PO DAILY 30 Days #30 tab 01/22/19 [Rx] Metoprolol Succinate (ER) [Toprol XL] 25 mg PO BID 30 Days #60 tab.er.24h 01/22/19 [Rx] Sodium Bicarbonate Tab 650 mg PO BID 30 Days #60 tab 01/22/19 [Rx] amLODIPine [Norvasc] 5 mg PO HS 30 Days #30 tab 01/22/19 [Rx] hydrALAZINE HCL [Apresoline] 25 mg PO TID 30 Days #90 tab 01/22/19 [Rx] Follow up Appointment(s)/Referral(s): [facility],Clinic [Primary Care Provider] - 1-2 days Ambulatory/Diagnostic Orders: Comprehensive Metabolic Panel [LAB.AMB] Time Frame: 2 Days, Location: None Selected Activity/Diet/Wound Care/Special Instructions: pt uses the [facility] for prescriptions. Contact CM for possible indigent fund needs. Activity Limited until follow-up Follow-up with primary care provider upon discharge Follow-up with cardiology in 1-2 weeks Follow-up with nephrology in 1-2 weeks Repeat labs in 2-3 days Continue to monitor blood sugar before meals at bedtime and keep a diary or log of blood sugar readings and amount of insulin used and breathing with you to primary care provider follow-up Discharge Disposition: HOME SELF-CARE
[2019-01-22 14:51] VITALS: BP 155/78; PULSE 65; RESP 14; TEMP 98
--- NOTE | 2019-01-22 16:36 | P.PN ---
Subjective Progress Note Date: 01/22/19 Pt is seen for f/u for PILAR and post transplant care. He is s/p cardiac cath today. No intervention was necessary. No chest pains. Pt will be discharged home today. Cr at baseline. It was 1.9 today. Pt is s/p NS. Objective - Vital Signs Vital signs: Vital Signs Temp 98.0 F 01/22/19 12:25 Pulse 65 01/22/19 12:25 Resp 14 01/22/19 12:25 BP 155/78 01/22/19 12:25 Pulse Ox 97 01/22/19 12:25 Intake & Output 01/21/19 01/22/19 01/22/19 18:59 06:59 18:59 Intake Total 656.179 804.93 477 Output Total 4000 500 1800 Balance -3343.821 304.93 -1323 Weight 64.8 kg 64.8 kg Intake: IV 237 Intake, IV Titration 194.179 204.93 Amount Heparin Sod,Pork in 0.45% 194.179 204.93 NaCl 25,000 unit In 0.45 % NaCl 1 250ml.bag @ 12 UNITS/KG/HR 7.62 mls/hr IV .Q24H GOLDY Rx#: [id number] Oral 462 600 240 Output: Urine 4000 500 1800 Straight 800 Other: Voiding Method Self-Catheterization Self-Catheterization Indwelling Catheter # Voids 1 1 - Exam Pt is awake, comfortable. Laying flat. Heart sounds are normal Exam of the lungs shows good air entry bilaterral with no crackles/ wheezing Exam of the abdomen shows no tenderness. 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 - Labs CBC & Chem 7: 01/20/19 09:11 01/22/19 05:53 Labs: Abnormal Lab Results - Last 24 Hours (Table) 01/21/19 01/21/19 01/22/19 Range/Units 17:15 20:41 05:53 BUN 33 H (9-20) mg/dL Creatinine 1.94 H (0.66-1.25) mg/dL Glucose 356 H (74-99) mg/dL POC Glucose (mg/dL) 146 H 109 H (75-99) mg/dL Calcium 8.2 L (8.4-10.2) mg/dL Magnesium 1.5 L (1.6-2.3) mg/dL 01/22/19 01/22/19 Range/Units 06:24 11:41 BUN (9-20) mg/dL Creatinine (0.66-1.25) mg/dL Glucose (74-99) mg/dL POC Glucose (mg/dL) 313 H 183 H (75-99) mg/dL Calcium (8.4-10.2) mg/dL Magnesium (1.6-2.3) mg/dL Microbiology - Last 24 Hours (Table) 01/21/19 17:40 Urine Culture - Preliminary Urine,Voided 01/18/19 22:57 Blood Culture - Preliminary Blood No Growth after 72 hours 01/18/19 22:30 Urine Culture - Final Urine,Voided Klebsiella pneumoniae Assessment and Plan Assessment: 1. PILAR, improved 2. 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 AMI, s/p cardiac cath with no intervention necessary at this time. 5. HTN, BP was high, better today. Metoprolol was increased. Plan: OK for discharge. F/u in the office in 1-2 weeks
[2019-01-22] MEDS ORDERED: amLODIPine 5 MG TAB PO SCH (21:00)
[2019-01-23] MEDS ORDERED: ASPIRIN 81 MG PO SCH (09:00)
== END 2019-01-22 16:40 | disposition home or self-care (01) | DRG 280 ==
LOC: EC 21:43 → 3SCARD 01-19 00:43
PROVIDERS: ADMIT Hospitalist; ATTEND Hospitalist
PROC: 4A023N7 Measurement of Cardiac Sampling and Pressure, Left Heart, Percutaneous Approach (ICD-10-PCS; principal; 2019-01-19)
PROC: B2111ZZ Fluoroscopy of Multiple Coronary Arteries using Low Osmolar Contrast (ICD-10-PCS; principal; 2019-01-19)
DX: I21.4 Non-ST elevation (NSTEMI) myocardial infarction (principal); E11.10 Type 2 diabetes mellitus with ketoacidosis without coma; N17.9 Acute kidney failure, unspecified; N39.0 Urinary tract infection, site not specified; T86.19 Other complication of kidney transplant; Z94.0 Kidney transplant status; E03.9 Hypothyroidism, unspecified; E11.22 Type 2 diabetes mellitus with diabetic chronic kidney disease; E11.319 Type 2 diabetes mellitus with unspecified diabetic retinopathy without macular edema; E11.41 Type 2 diabetes mellitus with diabetic mononeuropathy; E78.5 Hyperlipidemia, unspecified; E83.42 Hypomagnesemia; E86.9 Volume depletion, unspecified; F17.210 Nicotine dependence, cigarettes, uncomplicated; F32.9 Major depressive disorder, single episode, unspecified; H54.7 Unspecified visual loss; I25.10 Atherosclerotic heart disease of native coronary artery without angina pectoris; I95.1 Orthostatic hypotension; K21.9 Gastro-esophageal reflux disease without esophagitis; N31.9 Neuromuscular dysfunction of bladder, unspecified; Y83.0 Surgical operation with transplant of whole organ as the cause of abnormal reaction of the patient, or of later complication, without mention of misadventure at the time of the procedure; Z79.02 Long term (current) use of antithrombotics/antiplatelets; Z79.4 Long term (current) use of insulin; Z79.82 Long term (current) use of aspirin; Z79.890 Hormone replacement therapy; Z79.899 Other long term (current) drug therapy; Z81.8 Family history of other mental and behavioral disorders; Z82.49 Family history of ischemic heart disease and other diseases of the circulatory system; Z83.3 Family history of diabetes mellitus; Z85.828 Personal history of other malignant neoplasm of skin; Z86.73 Personal history of transient ischemic attack (TIA), and cerebral infarction without residual deficits; Z87.440 Personal history of urinary (tract) infections; Z95.5 Presence of coronary angioplasty implant and graft; I12.9 Hypertensive chronic kidney disease with stage 1 through stage 4 chronic kidney disease, or unspecified chronic kidney disease; N18.3 Chronic kidney disease, stage 3 (moderate); I16.0 Hypertensive urgency
CPT/HCPCS: 36415; 36600; 51701; 80048; 80051; 80053; 81001; 82805; 83036; 83605; 83735; 84439; 84443; 84484; 85025; 85610; 85730; 87040; 87077; 87086; 87186; 93005; 93306; 93458; 93571; 96361; 96374; 99285

== ENCOUNTER 2019-03-20 07:47 | Inpatient (IN) | payer OTHER, MEDICARE ==
[2019-03-20] MEDS ORDERED: FAMOTIDINE 20 MG/2 ML VIAL IV STA (08:07)
[2019-03-20] MEDS ORDERED: SODIUM CHLORIDE 0.9% 1,000 ML IV STA ×3 (08:07→09:56)
[2019-03-20] MEDS ORDERED: ONDANSETRON 4 MG/2 ML VIAL IVP STA (08:08)
[2019-03-20 08:13] LABS: Glucose,Whole Blood 315 mg/dL (75-99)
--- NOTE | 2019-03-20 08:16 | ED ---
GI Bleed HPI - General Chief complaint: GI Bleed Stated complaint: Vomiting Time Seen by Provider: 03/20/19 07:54 Source: patient, family, RN notes reviewed, old records reviewed Mode of arrival: wheelchair Limitations: no limitations - History of Present Illness Initial comments: This is a 64-year-old male with a history of multiple medical problems including diabetes has history of non-STEMI sepsis UTI DKA who presents with complaints of nausea and vomiting that has persisted for the past 4 days. He's had decreased oral intake increased blood glucose levels. Today he started vomiting up blood so his came home from work and found black colored material in the toilet. She brought him in here for evaluation. He does complain feeling weak lightheaded dizzy no chest pain however. Some upper abdominal pain. No other modifying factors at this time is had no blood per rectum. - Related Data Home Medications Medication Instructions Recorded Confirmed Sertraline [Zoloft] 100 mg PO HS 09/21/13 03/20/19 Levothyroxine Sodium [Synthroid] 50 mcg PO DAILY 03/13/17 03/20/19 Mycophenolate Sodium [Mycophenolic 720 mg PO BID 03/13/17 03/20/19 Acid] Omeprazole [PriLOSEC] 20 mg PO AC-BID 03/13/17 03/20/19 Tacrolimus [Prograf] 3 mg PO Q12H 12/17/17 03/20/19 Insulin Aspart [NovoLOG Flexpen] 8 unit SQ AC-BRKFST 01/17/18 03/20/19 Insulin Detemir [Levemir Flextouch] 20 units SQ BID 09/11/18 03/20/19 Insulin Aspart [NovoLOG Flexpen] 3 - 4 units SQ AC-BID 03/20/19 03/20/19 Metoprolol Tartrate [Lopressor] 25 mg PO BID 03/20/19 03/20/19 Previous Rx's Medication Instructions Recorded Aspirin 81 mg PO DAILY #30 chew 09/27/15 Atorvastatin [Lipitor] 80 mg PO HS #30 tab 09/27/15 Clopidogrel [Plavix] 75 mg PO DAILY 30 Days #30 tab 01/22/19 Sodium Bicarbonate Tab 650 mg PO BID 30 Days #60 tab 01/22/19 amLODIPine [Norvasc] 5 mg PO HS 30 Days #30 tab 01/22/19 hydrALAZINE HCL [Apresoline] 25 mg PO TID 30 Days #90 tab 01/22/19 Allergies Allergy/AdvReac Type Severity Reaction Status Date / Time No Known Allergies Allergy Verified 03/20/19 09:35 Review of Systems ROS Statement: Those systems with pertinent positive or pertinent negative responses have been documented in the HPI. ROS Other: All systems not noted in ROS Statement are negative. Past Medical History Past Medical History: Coronary Artery Disease (CAD), Cancer, Chest Pain / Angina, CVA/TIA, Diabetes Mellitus, Dialysis, Eye Disorder, GERD/Reflux, Hyperlipidemia, Hypertension, Myocardial Infarction (MD), Renal Disease, Thyroid Disorder Additional Past Medical History / Comment(s): IDDM, neuropathy bilateral legs/feet, retinopathy bilaterally and is nearly blind, ESRD with past hemo/peritoneal dialysis and in 2010 received kidney transplant, CKD stage II or III, recurrent UTIs, UTI with sepsis, does not completely empty bladder-self caths on occasion, incontinent of urine at times, TIA in 2007, 2013 fractured ribs, vascular dementia per spouse, skin cancer with removal, CDiff 3 times in the past-spouse states to be careful with antibiotic use. Was inpt in 05/2018 for DKA, and fall with multiple fxs Last Myocardial Infarction Date:: 09/24/15 History of Any Multi-Drug Resistant Organisms: C-DIFF Date of last positivie culture/infection: "years ago" MDRO Source:: stool Past Surgical History: Heart Catheterization With Stent Additional Past Surgical History / Comment(s): PCI with stents in 2012 and 2015, kidney transplant November 2010, patient has an AV fistula in the left upper extremity, colonoscopy, skin cancer removal , bilateral eye retinal bleeds with surgery, teeth extractions. Past Anesthesia/Blood Transfusion Reactions: No Reported Reaction Date of Last Stent Placement:: 09/2015 Past Psychological History: Depression Smoking Status: Current every day smoker Past Alcohol Use History: None Reported Past Drug Use History: None Reported - Past Family History Brother(s) Additional Family Medical History / Comment(s): Brother had depression and comitted suicide. Father Family Medical History: Diabetes Mellitus Additional Family Medical History / Comment(s): Father lived into his 90s. Mother Family Medical History: Myocardial Infarction (MD) Additional Family Medical History / Comment(s): Mother of a MD at the age of 57yrs. General Exam - General Exam Comments Initial Comments: This is a well-developed sec appearing male who is awake alert oriented 3 Limitations: no limitations General appearance: alert, anxious, in distress Head exam: Present: atraumatic, normocephalic, normal inspection Eye exam: Present: normal appearance, PERRL, EOMI. Absent: scleral icterus, conjunctival injection, periorbital swelling ENT exam: Present: mucous membranes dry Neck exam: Present: normal inspection. Absent: tenderness, meningismus, lymphadenopathy Respiratory exam: Present: normal lung sounds bilaterally. Absent: respiratory distress, wheezes, rales, rhonchi, stridor Cardiovascular Exam: Present: regular rate, normal rhythm, normal heart sounds. Absent: systolic murmur, diastolic murmur, rubs, gallop, clicks GI/Abdominal exam: Present: soft, tenderness (Mild epigastric tenderness palpation no guarding rebound masses or bruits), normal bowel sounds. Absent: distended, guarding, rebound, rigid Extremities exam: Present: normal inspection, full ROM, normal capillary refill. Absent: tenderness, pedal edema, joint swelling, calf tenderness Back exam: Present: normal inspection Neurological exam: Present: alert, oriented X3, CN II-XII intact Psychiatric exam: Present: normal affect, normal mood Skin exam: Present: warm, dry, intact, normal color. Absent: rash Course Vital Signs 03/20/19 03/20/19 07:49 09:45 Temperature 97.1 F L Pulse Rate 84 90 Respiratory 20 19 Rate Blood Pressure 159/89 169/89 O2 Sat by Pulse 100 99 Oximetry - Reevaluation(s) Reevaluation #1: 03/20/19 08:15 Patient did have a emesis basin with brown and some black colored material in it. Reevaluation #2: 03/20/19 10:06 I did reevaluate the patient again the patient's was somewhat better after IV fluids Medical Decision Making - Medical Decision Making Patient does demonstrate evidence of dehydration as well as acute on chronic renal failure also hematemesis he was heme positive. Also acetone positive. I did discuss case with him and his as well as Dr. Forde. Patient be admitted for treatment of DKA dehydration acute kidney injury. He also demonstrate hypomagnesemia and will be getting IV treatment. - Lab Data Result diagrams: 03/20/19 08:13 03/20/19 08:13 Lab Results 03/20/19 03/20/19 03/20/19 Range/Units 08:12 08:13 08:13 WBC 10.8 H (3.8-10.6) k/uL RBC 4.91 (4.30-5.90) m/uL Hgb 14.0 D (13.0-17.5) gm/dL Hct 45.8 (39.0-53.0) % MCV 93.3 (80.0-100.0) fL MCH 28.6 (25.0-35.0) pg MCHC 30.6 L (31.0-37.0) g/dL RDW 13.6 (11.5-15.5) % Plt Count 234 (150-450) k/uL Neutrophils % 84 % Lymphocytes % 9 % Monocytes % 5 % Eosinophils % 0 % Basophils % 0 % Neutrophils # 9.0 H (1.3-7.7) k/uL Lymphocytes # 0.9 L (1.0-4.8) k/uL Monocytes # 0.6 (0-1.0) k/uL Eosinophils # 0.0 (0-0.7) k/uL Basophils # 0.0 (0-0.2) k/uL Hypochromasia Slight APTT (22.0-30.0) sec VBG pH (7.31-7.41) VBG pCO2 (37-51) mmHg VBG HCO3 (24-28) mmol/L Sodium 139 (137-145) mmol/L Potassium 5.1 (3.5-5.1) mmol/L Chloride 99 (98-107) mmol/L Carbon Dioxide 23 (22-30) mmol/L Anion Gap 17 mmol/L BUN 36 H (9-20) mg/dL Creatinine 2.68 H (0.66-1.25) mg/dL Est GFR (CKD-EPI)AfAm 28 (>60 ml/min/1.73 sqM) Est GFR (CKD-EPI)NonAf 24 (>60 ml/min/1.73 sqM) Glucose 323 H (74-99) mg/dL POC Glucose (mg/dL) 315 H (75-99) mg/dL POC Glu Rougher For Cement ID [place] Plasma Lactic Acid Raymond (0.7-2.0) mmol/L Calcium 9.5 (8.4-10.2) mg/dL Magnesium 1.2 L (1.6-2.3) mg/dL Total Bilirubin 1.1 (0.2-1.3) mg/dL AST 24 (17-59) U/L ALT 18 (4-49) U/L Alkaline Phosphatase 159 H (38-126) U/L Creatine Kinase 98 (55-170) U/L Troponin I (0.000-0.034) ng/mL Total Protein 7.2 (6.3-8.2) g/dL Albumin 4.7 (3.5-5.0) g/dL Lipase 19 L (23-300) U/L Gastric Occult Blood (Negative) Acetone, Qual Positive (Negative) Blood Type Blood Type Confirm Blood Type Recheck Bld Type Recheck Status Antibody Screen Spec Expiration Date 03/20/19 03/20/19 03/20/19 Range/Units 08:13 08:13 08:13 WBC (3.8-10.6) k/uL RBC (4.30-5.90) m/uL Hgb (13.0-17.5) gm/dL Hct (39.0-53.0) % MCV (80.0-100.0) fL MCH (25.0-35.0) pg MCHC (31.0-37.0) g/dL RDW (11.5-15.5) % Plt Count (150-450) k/uL Neutrophils % % Lymphocytes % % Monocytes % % Eosinophils % % Basophils % % Neutrophils # (1.3-7.7) k/uL Lymphocytes # (1.0-4.8) k/uL Monocytes # (0-1.0) k/uL Eosinophils # (0-0.7) k/uL Basophils # (0-0.2) k/uL Hypochromasia APTT 22.6 (22.0-30.0) sec VBG pH (7.31-7.41) VBG pCO2 (37-51) mmHg VBG HCO3 (24-28) mmol/L Sodium (137-145) mmol/L Potassium (3.5-5.1) mmol/L Chloride (98-107) mmol/L Carbon Dioxide (22-30) mmol/L Anion Gap mmol/L BUN (9-20) mg/dL Creatinine (0.66-1.25) mg/dL Est GFR (CKD-EPI)AfAm (>60 ml/min/1.73 sqM) Est GFR (CKD-EPI)NonAf (>60 ml/min/1.73 sqM) Glucose (74-99) mg/dL POC Glucose (mg/dL) (75-99) mg/dL POC Glu Rougher For Cement ID Plasma Lactic Acid Raymond 2.0 (0.7-2.0) mmol/L Calcium (8.4-10.2) mg/dL Magnesium (1.6-2.3) mg/dL Total Bilirubin (0.2-1.3) mg/dL AST (17-59) U/L ALT (4-49) U/L Alkaline Phosphatase (38-126) U/L Creatine Kinase (55-170) U/L Troponin I 0.023 (0.000-0.034) ng/mL Total Protein (6.3-8.2) g/dL Albumin (3.5-5.0) g/dL Lipase (23-300) U/L Gastric Occult Blood (Negative) Acetone, Qual (Negative) Blood Type Blood Type Confirm Blood Type Recheck Bld Type Recheck Status Antibody Screen Spec Expiration Date 03/20/19 03/20/19 03/20/19 Range/Units 08:19 08:19 08:19 WBC (3.8-10.6) k/uL RBC (4.30-5.90) m/uL Hgb (13.0-17.5) gm/dL Hct (39.0-53.0) % MCV (80.0-100.0) fL MCH (25.0-35.0) pg MCHC (31.0-37.0) g/dL RDW (11.5-15.5) % Plt Count (150-450) k/uL Neutrophils % % Lymphocytes % % Monocytes % % Eosinophils % % Basophils % % Neutrophils # (1.3-7.7) k/uL Lymphocytes # (1.0-4.8) k/uL Monocytes # (0-1.0) k/uL Eosinophils # (0-0.7) k/uL Basophils # (0-0.2) k/uL Hypochromasia APTT (22.0-30.0) sec VBG pH 7.45 H (7.31-7.41) VBG pCO2 32 L (37-51) mmHg VBG HCO3 22 L (24-28) mmol/L Sodium (137-145) mmol/L Potassium (3.5-5.1) mmol/L Chloride (98-107) mmol/L Carbon Dioxide (22-30) mmol/L Anion Gap mmol/L BUN (9-20) mg/dL Creatinine (0.66-1.25) mg/dL Est GFR (CKD-EPI)AfAm (>60 ml/min/1.73 sqM) Est GFR (CKD-EPI)NonAf (>60 ml/min/1.73 sqM) Glucose (74-99) mg/dL POC Glucose (mg/dL) (75-99) mg/dL POC Glu Rougher For Cement ID Plasma Lactic Acid Raymond (0.7-2.0) mmol/L Calcium (8.4-10.2) mg/dL Magnesium (1.6-2.3) mg/dL Total Bilirubin (0.2-1.3) mg/dL AST (17-59) U/L ALT (4-49) U/L Alkaline Phosphatase (38-126) U/L Creatine Kinase (55-170) U/L Troponin I (0.000-0.034) ng/mL Total Protein (6.3-8.2) g/dL Albumin (3.5-5.0) g/dL Lipase (23-300) U/L Gastric Occult Blood Positive (Negative) Acetone, Qual (Negative) Blood Type O Positive Blood Type Confirm Blood Type Recheck No Previous Record Bld Type Recheck Status CABO Indicated Antibody Screen NEGATIVE Spec Expiration Date 03/23/2019 - 231203/20/19 Range/Units 08:43 WBC (3.8-10.6) k/uL RBC (4.30-5.90) m/uL Hgb (13.0-17.5) gm/dL Hct (39.0-53.0) % MCV (80.0-100.0) fL MCH (25.0-35.0) pg MCHC (31.0-37.0) g/dL RDW (11.5-15.5) % Plt Count (150-450) k/uL Neutrophils % % Lymphocytes % % Monocytes % % Eosinophils % % Basophils % % Neutrophils # (1.3-7.7) k/uL Lymphocytes # (1.0-4.8) k/uL Monocytes # (0-1.0) k/uL Eosinophils # (0-0.7) k/uL Basophils # (0-0.2) k/uL Hypochromasia APTT (22.0-30.0) sec VBG pH (7.31-7.41) VBG pCO2 (37-51) mmHg VBG HCO3 (24-28) mmol/L Sodium (137-145) mmol/L Potassium (3.5-5.1) mmol/L Chloride (98-107) mmol/L Carbon Dioxide (22-30) mmol/L Anion Gap mmol/L BUN (9-20) mg/dL Creatinine (0.66-1.25) mg/dL Est GFR (CKD-EPI)AfAm (>60 ml/min/1.73 sqM) Est GFR (CKD-EPI)NonAf (>60 ml/min/1.73 sqM) Glucose (74-99) mg/dL POC Glucose (mg/dL) (75-99) mg/dL POC Glu Rougher For Cement ID Plasma Lactic Acid Raymond (0.7-2.0) mmol/L Calcium (8.4-10.2) mg/dL Magnesium (1.6-2.3) mg/dL Total Bilirubin (0.2-1.3) mg/dL AST (17-59) U/L ALT (4-49) U/L Alkaline Phosphatase (38-126) U/L Creatine Kinase (55-170) U/L Troponin I (0.000-0.034) ng/mL Total Protein (6.3-8.2) g/dL Albumin (3.5-5.0) g/dL Lipase (23-300) U/L Gastric Occult Blood (Negative) Acetone, Qual (Negative) Blood Type Blood Type Confirm O Positive Blood Type Recheck Bld Type Recheck Status Antibody Screen Spec Expiration Date Critical Care Time Critical Care Time: Yes Critical Care Time: 31 minutes of critical care time which includes initial presentation with history physical labs x-rays multiple reevaluation patient responsive discussed with the admitting physician discussed with the family review of old charting was available documentation of the above and admitting orders. Disposition Clinical Impression: DKA (diabetic ketoacidoses), Dehydration, Upper GI bleeding, Acute kidney injury Disposition: ADMITTED IP TO THIS HOSP Condition: Fair Referrals: [facility]inic [Primary Care Provider] - 1-2 days
[2019-03-20 08:33] LABS: Basophils % (A) 0 %; Eosinophils % (A) 0 %; HCT 45.8 % (39.0-53.0); Hypochromasia Slight; Lymphocytes # (A) 0.9 k/uL (1.0-4.8); Lymphocytes % (A) 9 %; MCH 28.6 pg (25.0-35.0); MCHC 30.6 g/dL (31.0-37.0); MCV 93.3 fL (80.0-100.0); Mean Platelet Volume 9.4; Monocytes # (A) 0.6 k/uL (0-1.0); Monocytes % (A) 5 %; Neutrophils % (A) 84 %; Platelet Count 234 k/uL (150-450); RBC 4.91 m/uL (4.30-5.90); RDW 13.6 % (11.5-15.5); WBC 10.8 k/uL (3.8-10.6)
[2019-03-20 08:51] LABS: VBG PH 7.45 (7.31-7.41)
[2019-03-20 08:53] LABS: ALT 18 U/L (4-49); AST 24 U/L (17-59); African American GFR (CKD) 28 (>60 ml/min/1.73 sqM); Albumin 4.7 g/dL (3.5-5.0); Alkaline Phosphatase 159 U/L (38-126); Anion Gap 17 mmol/L; Blood Urea Nitrogen 36 mg/dL (9-20); Calcium 9.5 mg/dL (8.4-10.2); Carbon Dioxide 23 mmol/L (22-30); Chloride 99 mmol/L (98-107); Creatine Kinase 98 U/L (55-170); Glucose 323 mg/dL (74-99); Magnesium 1.2 mg/dL (1.6-2.3); Non-African American GFR(CKD) 24 (>60 ml/min/1.73 sqM); Potassium 5.1 mmol/L (3.5-5.1); Sodium 139 mmol/L (137-145); Total Bilirubin 1.1 mg/dL (0.2-1.3); Total Protein 7.2 g/dL (6.3-8.2)
[2019-03-20] MEDS: MAGNESIUM SULFATE-D5W PMX 1 GM in DEXTROSE/WATER 1 100ML.BAG IVPB SCH ×5 (10:04→17:09)
[2019-03-20] MEDS ORDERED: NALOXONE 0.4 MG/ML 1 ML VIAL IV PRN (10:09)
[2019-03-20] MEDS ORDERED: ONDANSETRON 4 MG/2 ML VIAL IVP PRN (10:09)
[2019-03-20] MEDS ORDERED: INSULIN REGULAR 100 UNIT/ML VIAL IV ONE (10:09)
--- NOTE | 2019-03-20 10:27 | XR ---
EXAMINATION TYPE: XR chest 2V DATE OF EXAM: 03/20/2019 COMPARISON: 05/30/2018 HISTORY: Vomiting with hematemesis TECHNIQUE: Frontal and lateral views of the chest are obtained. FINDINGS: There is no focal air space opacity, pleural effusion, or pneumothorax seen. The cardiac silhouette size is prominent but nonenlarged. Old fracture deformities of the left lateral mid rib an d posterior lateral lower ribs are seen. IMPRESSION: No acute cardiopulmonary process.
--- NOTE | 2019-03-20 10:30 | XR ---
EXAMINATION TYPE: XR KUB DATE OF EXAM: 03/20/2019 10:17 AM CLINICAL HISTORY: Hematemesis TECHNIQUE: Single supine KUB image of the abdomen is obtained. COMPARISON: 05/26/2017. FINDINGS: Numerous bilateral renal calcifications are redemonstrated. No dilated large or small bowel . Extensive atherosclerosis of the common iliac arteries and their branches. Lung bases are well aera elyssa. Supine imaging limits evaluation for pneumoperitoneum however no gross evidence of pneumoperiton eum is seen. IMPRESSION: 1. Nonobstructive bowel gas pattern. 2. Numerous bilateral renal calculi as seen on the prior.
[2019-03-20] MEDS: SODIUM CHLORIDE 0.9% 1,000 ML IV SCH ×2 (11:15→17:10)
[2019-03-20] MEDS ORDERED: DIPHENOX-ATROP 2.5-0.025 MG 1 EACH TAB PO PRN (12:26)
--- NOTE | 2019-03-20 12:37 | P.HPIM ---
History of Present Illness Patient is a pleasant 64-year-old male with history of type 1 diabetes mellitus, chronic kidney disease, post renal transplant on antirejection medications came in with compensative for nausea vomiting multiple episodes has been going on for last 4 days denied any flulike symptoms denied any fever chills. Patient has chronic diarrhea about 8 episodes a day patient denied any increase the diarrhea but there was a concern that patient may have dark-colored stool in the toilet. Patient denied any abdominal pain. Patient has all the complications of diabetes mellitus including diabetic Retinopathy and nephropathy neuropathy and diuretic gastroparesis. Patient chronic diarrhea was believed to be secondary to anti-rejection medications patient is on mycophenolate and tacrolimus with hypomagnesemia which will be corrected. Patient is also found to be in DKA, patient is on IV insulin we'll repeat another basic metabolic profile left for that comes back, on Mylanta and Patient will be switched to his regular insulin unsure whether patient is taking his insulin on regular basis because of his nausea vomiting. Review of Systems REVIEW OF SYSTEMS: CONSTITUTIONAL: No fever, no malaise, no fatigue. HEENT: No recent visual problems or hearing problems. Denied any sore throat. CARDIOVASCULAR: No chest pain, orthopnea, PND, no palpitations, no syncope. PULMONARY: No shortness of breath, no cough, no hemoptysis. GASTROINTESTINAL: As mentioned in HPI NEUROLOGICAL: No headaches, no weakness, no numbness. HEMATOLOGICAL: Denies any bleeding or petechiae. GENITOURINARY: Denies any burning micturition, frequency, or urgency. MUSCULOSKELETAL/RHEUMATOLOGICAL: Denies any joint pain, swelling, or any muscle pain. ENDOCRINE: Denies any polyuria or polydipsia. The rest of the 14-point review of systems is negative. Past Medical History Past Medical History: Coronary Artery Disease (CAD), Cancer, Chest Pain / Angina, CVA/TIA, Diabetes Mellitus, Dialysis, Eye Disorder, GERD/Reflux, Hyperlipidemia, Hypertension, Myocardial Infarction (MT), Renal Disease, Thyroid Disorder Additional Past Medical History / Comment(s): IDDM, neuropathy bilateral legs/feet, retinopathy bilaterally and is nearly blind, ESRD with past he mo/peritoneal dialysis and in 2010 received kidney transplant, CKD stage II or III, recurrent UTIs, UTI with sepsis, does not completely empty bladder-self caths on occasion, incontinent of urine at times, TIA in 2007, 2013 fractured ribs, vascular dementia per spouse, skin cancer with removal, CDiff 3 times in the past-spouse states to be careful with antibiotic use. Was inpt in 05/2018 for DKA, and fall with multiple fxs Last Myocardial Infarction Date:: 09/24/15 History of Any Multi-Drug Resistant Organisms: C-DIFF Date of last positivie culture/infection: "years ago" MDRO Source:: stool Past Surgical History: Heart Catheterization With Stent Additional Past Surgical History / Comment(s): PCI with stents in 2012 and 2015, kidney transplant November 2010, patient has an AV fistula in the left upper extremity, colonoscopy, skin cancer removal , bilateral eye retinal bleeds with surgery, teeth extractions. Past Anesthesia/Blood Transfusion Reactions: No Reported Reaction Date of Last Stent Placement:: 09/2015 Past Psychological History: Depression Smoking Status: Current every day smoker Past Alcohol Use History: None Reported Past Drug Use History: None Reported - Past Family History Brother(s) Additional Family Medical History / Comment(s): Brother had depression and comitted suicide. Father Family Medical History: Diabetes Mellitus Additional Family Medical History / Comment(s): Father lived into his 90s. Mother Family Medical History: Myocardial Infarction (MT) Additional Family Medical History / Comment(s): Mother of a MT at the age of 57yrs. Medications and Allergies Home Medications Medication Instructions Recorded Confirmed Type Sertraline [Zoloft] 100 mg PO HS 09/21/13 03/20/19 History Aspirin 81 mg PO DAILY #30 chew 09/27/15 03/20/19 Rx Atorvastatin [Lipitor] 80 mg PO HS #30 tab 09/27/15 03/20/19 Rx Levothyroxine Sodium [Synthroid] 50 mcg PO DAILY 03/13/17 03/20/19 History Mycophenolate Sodium [Mycophenolic 720 mg PO BID 03/13/17 03/20/19 History Acid] Omeprazole [PriLOSEC] 20 mg PO AC-BID 03/13/17 03/20/19 History Tacrolimus [Prograf] 3 mg PO Q12H 12/17/17 03/20/19 History Insulin Aspart [NovoLOG Flexpen] 8 unit SQ AC-BRKFST 01/17/18 03/20/19 History Insulin Detemir [Levemir Flextouch] 20 units SQ BID 07/24/19 01/30/20 History Clopidogrel [Plavix] 75 mg PO DAILY 30 Days #30 tab 01/22/19 03/20/19 Rx Sodium Bicarbonate Tab 650 mg PO BID 30 Days #60 tab 01/22/19 03/20/19 Rx amLODIPine [Norvasc] 5 mg PO HS 30 Days #30 tab 01/22/19 03/20/19 Rx hydrALAZINE HCL [Apresoline] 25 mg PO TID 30 Days #90 tab 01/22/19 03/20/19 Rx Insulin Aspart [NovoLOG Flexpen] 3 - 4 units SQ AC-BID 03/20/19 03/20/19 History Metoprolol Tartrate [Lopressor] 25 mg PO BID 03/20/19 03/20/19 History Allergies Allergy/AdvReac Type Severity Reaction Status Date / Time No Known Allergies Allergy Verified 03/20/19 09:35 Physical Exam Vitals: Vital Signs Temp Pulse Resp BP Pulse Ox 03/20/19 12:00 87 19 160/85 99 03/20/19 11:30 71 18 166/83 98 03/20/19 11:00 17 162/81 99 03/20/19 10:30 19 181/98 99 03/20/19 10:00 18 161/89 99 03/20/19 09:45 90 19 169/89 99 03/20/19 07:49 97.1 F L 84 20 159/89 100 Intake and Output 03/19/19 03/20/19 03/20/19 22:59 06:59 14:59 Other: Weight 64.41 kg PHYSICAL EXAMINATION: GENERAL: The patient is alert and oriented x3, not in any acute distress. Well developed, well nourished. HEENT: Pupils are round and equally reacting to light. Patient has significant vision problems EOMI. No scleral icterus. No conjunctival pallor. Normocephalic, atraumatic. No pharyngeal erythema. No thyromegaly. CARDIOVASCULAR: S1 and S2 present. No murmurs, rubs, or gallops. PULMONARY: Chest is clear to auscultation, no wheezing or crackles. ABDOMEN: Soft, nontender, nondistended, normoactive bowel sounds. No palpable organomegaly. MUSCULOSKELETAL: No joint swelling or deformity. EXTREMITIES: No cyanosis, clubbing, or pedal edema. NEUROLOGICAL: Gross neurological examination did not reveal any focal deficits. SKIN: No rashes. Results CBC & Chem 7: 03/20/19 08:13 03/20/19 08:13 Labs: Abnormal Lab Results - Last 24 Hours (Table) 03/20/19 03/20/19 03/20/19 Range/Units 08:12 08:13 08:13 WBC 10.8 H (3.8-10.6) k/uL MCHC 30.6 L (31.0-37.0) g/dL Neutrophils # 9.0 H (1.3-7.7) k/uL Lymphocytes # 0.9 L (1.0-4.8) k/uL VBG pH (7.31-7.41) VBG pCO2 (37-51) mmHg VBG HCO3 (24-28) mmol/L BUN 36 H (9-20) mg/dL Creatinine 2.68 H (0.66-1.25) mg/dL Glucose 323 H (74-99) mg/dL POC Glucose (mg/dL) 315 H (75-99) mg/dL Magnesium 1.2 L (1.6-2.3) mg/dL Alkaline Phosphatase 159 H (38-126) U/L Lipase 19 L (23-300) U/L 03/20/19 Range/Units 08:19 WBC (3.8-10.6) k/uL MCHC (31.0-37.0) g/dL Neutrophils # (1.3-7.7) k/uL Lymphocytes # (1.0-4.8) k/uL VBG pH 7.45 H (7.31-7.41) VBG pCO2 32 L (37-51) mmHg VBG HCO3 22 L (24-28) mmol/L BUN (9-20) mg/dL Creatinine (0.66-1.25) mg/dL Glucose (74-99) mg/dL POC Glucose (mg/dL) (75-99) mg/dL Magnesium (1.6-2.3) mg/dL Alkaline Phosphatase (38-126) U/L Lipase (23-300) U/L Assessment and Plan Plan: -Possible peptic ulcer disease for which patient is on Protonix and possible upper GI bleed from peptic ulcer disease will monitor him patient will be on the IV Protonix. Patient will be started on diet to clear liquids. -Mild acute renal failure on chronic kidney disease chronic kidney disease secondary to diabetic nephropathy patient is post renal transplant will be r esumed on renal transplant medications nephrology will be consulted patient will be can you done IV fluids -Possible mild DKA patient is presently in IV insulin which will be switched to his insulin regimen and resuming his anion gap resolved but will likely get a stat basic metabolic profile before we switch him to start him on diet. -Type 1 diabetes mellitus with the diabetic peripheral neuropathy, nephropathy gastroparesis, retinopathy. Patient resumed on his home regimen along with sliding scale. -Hypomagnesemia secondary to tacrolimus this will be replaced repeat magnesium tomorrow -Chronic kidney disease status post renal transplant further management as mentioned above -Hypoglycemia uncontrolled blood sugars secondary to nausea vomiting which is again secondary to peptic ulcer disease probably and nausea vomiting can be secondary to DKA itself -Diabetes peripheral neuropathy -Could not disease with recent stents in month of January for will be resumed and dual antiplatelet therapy and a statin medications -Hypothyroidism -Hypertension -Gastroesophageal reflux disease -Due to prophylaxis with subcutaneous heparin -Continued smoking:, Counseling was provided
[2019-03-20 12:53] LABS: Calcium 8.4 mg/dL (8.4-10.2)
[2019-03-20 12:59] LABS: Potassium 5.1 mmol/L (3.5-5.1)
[2019-03-20 13:09] LABS: Glucose,Whole Blood 298 mg/dL (75-99)
[2019-03-20] MEDS: INSULIN ASPART (NovoLOG) 100 UNIT/ML VIAL SQ SCH ×5 (14:19→21:15)
[2019-03-20] MEDS: HEPARIN SODIUM,PORCINE 5,000 UNIT/ML 1 ML VIAL SQ SCH ×2 (16:03→23:47)
[2019-03-20] MEDS ORDERED: INSULIN ASPART (NovoLOG) 100 UNIT/ML VIAL SQ SCH (17:30)
[2019-03-20 17:34] LABS: Glucose,Whole Blood 270 mg/dL (75-99)
[2019-03-20] MEDS: TACROLIMUS 1 MG CAP PO SCH ×2 (17:50→21:24)
[2019-03-20] MEDS: PANTOPRAZOLE 40 MG/10 ML VIAL IV SCH (19:57)
[2019-03-20] MEDS: METOPROLOL TARTRATE 25 MG TAB PO SCH (19:57)
[2019-03-20] MEDS: amLODIPine 10 MG TAB PO SCH (19:57)
[2019-03-20] MEDS: SERTRALINE 100 MG TAB PO SCH (19:57)
[2019-03-20] MEDS: ATORVASTATIN 80 MG TAB PO SCH (19:57)
[2019-03-20] MEDS: SODIUM BICARBONATE TAB 650 MG TAB PO SCH (19:57)
[2019-03-20 20:41] LABS: Glucose,Whole Blood 75 mg/dL (75-99)
[2019-03-20] MEDS: MYCOPHENOLATE SODIUM DR 180 MG TABLET.DR PO SCH (21:24)
[2019-03-20] MEDS: INSULIN DETEMIR (LEVEMIR) 100 UNIT/ML SYR SQ SCH (21:29)
[2019-03-21] MEDS: SODIUM CHLORIDE 0.9% 1,000 ML IV SCH ×3 (03:01→20:47)
[2019-03-21 06:05] LABS: Basophils % (A) 0 %; Eosinophils % (A) 0 %; HCT 42.2 % (39.0-53.0); HGB 12.7 gm/dL (13.0-17.5); Hypochromasia Moderate; Lymphocytes # (A) 0.9 k/uL (1.0-4.8); Lymphocytes % (A) 12 %; MCH 28.6 pg (25.0-35.0); MCHC 30.1 g/dL (31.0-37.0); MCV 95.1 fL (80.0-100.0); Mean Platelet Volume 9.3; Monocytes # (A) 0.5 k/uL (0-1.0); Monocytes % (A) 6 %; Neutrophils # (A) 6.2 k/uL (1.3-7.7); Neutrophils % (A) 80 %; Platelet Count 185 k/uL (150-450); RBC 4.44 m/uL (4.30-5.90); RDW 13.5 % (11.5-15.5); WBC 7.8 k/uL (3.8-10.6)
[2019-03-21 06:13] LABS: Calcium 8.7 mg/dL (8.4-10.2); Potassium 4.7 mmol/L (3.5-5.1)
[2019-03-21] MEDS: LEVOTHYROXINE 50 MCG TAB PO SCH (06:43)
[2019-03-21 06:56] LABS: Glucose,Whole Blood 277 mg/dL (75-99)
[2019-03-21] MEDS: INSULIN ASPART (NovoLOG) 100 UNIT/ML VIAL SQ SCH ×7 (06:59→20:56)
[2019-03-21] MEDS ORDERED: INSULIN ASPART 8 UNIT SQ SCH (07:30)
[2019-03-21] MEDS: INSULIN DETEMIR (LEVEMIR) 100 UNIT/ML SYR SQ SCH ×2 (07:44→20:58)
[2019-03-21] MEDS: METOPROLOL TARTRATE 25 MG TAB PO SCH ×2 (08:42→20:48)
[2019-03-21] MEDS: MYCOPHENOLATE SODIUM DR 180 MG TABLET.DR PO SCH ×2 (08:43→20:49)
[2019-03-21] MEDS ORDERED: CLOPIDOGREL 75 MG TAB PO SCH (09:00)
[2019-03-21] MEDS ORDERED: ASPIRIN 81 MG PO SCH (09:00)
[2019-03-21] MEDS: PANTOPRAZOLE 40 MG/10 ML VIAL IV SCH ×2 (09:42→20:48)
[2019-03-21] MEDS ORDERED: LIDOCAINE 1% 20 ML VIAL (10MG/ML) FOR IV START INTRADERMA PRN (10:13)
[2019-03-21] MEDS: HEPARIN SODIUM,PORCINE 5,000 UNIT/ML 1 ML VIAL SQ SCH (10:46)
[2019-03-21] MEDS: TACROLIMUS 1 MG CAP PO SCH ×2 (10:54→20:49)
[2019-03-21] MEDS: SODIUM BICARBONATE TAB 650 MG TAB PO SCH ×2 (10:57→20:48)
--- NOTE | 2019-03-21 11:25 | CONS ---
CONSULTATION REASON FOR CONSULT: Renal failure. HISTORY OF PRESENT ILLNESS: Patient is a 64-year-old male with a history of end-stage renal disease, status post donor renal allograft 2010 at [facility]. The patient has chronic kidney disease with baseline creatinine about 2.2 to 2.5 mg/dL. He is maintained on Prograf and Myfortic. He was admitted to the hospital with complaints of weakness. He also noticed blood in his emesis and some blood in his stools. No fever, chills. No chest pains or shortness of breath. On admission, he was in DKA with positive serum acetone. Blood sugar was 323. Serum creatinine was elevated at 2.6, which is up from his usual baseline of about 2 mg/dL. Currently patient is maintained on IV fluids he states he is feeling better. He has not had any obvious bleeding since hospitalization. PAST MEDICAL HISTORY: End-stage renal disease from diabetic kidney disease, status post donor renal allograft 2010 at [facility], baseline creatinine 2.2 to 2.4 mg/dL with chronic allograft nephropathy, coronary artery disease, CVA, TIA, type 2 diabetes, gastroparesis, retinopathy, gastroesophageal reflux disease, MS, hypothyroidism, neuropathy, history of TIA, multiple UTIs, multiple admissions for DKA. PAST SURGICAL HISTORY: Cardiac catheterization, coronary stent placement, renal transplant, AV fistula, colonoscopy, retinal surgery, teeth extractions. SOCIAL HISTORY: Positive for smoking. No history of drug abuse or alcohol abuse. MEDICATIONS: Medications at home prior to admission include Zoloft, aspirin, Lipitor, Synthroid, CellCept, Prilosec, Prograf, insulin, Plavix, sodium bicarb, Norvasc, hydralazine, Lopressor. ALLERGIES: None. PHYSICAL EXAMINATION: On examination, patient is comfortable, awake. He is not in any acute distress. Alert and oriented x3. Blood pressure 165/75, heart rate 84 per minute. He is afebrile. EXAMINATION OF THE HEART: S1, S2. EXAMINATION OF THE LUNGS: Bilateral breath sounds are heard. ABDOMEN: Soft, nontender. Examination of lower extremities shows no evidence of edema. 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 LABS: Labs show sodium of 135, potassium 4.7, chloride 105, CO2 is 18, BUN 33, creatinine 2.3, hemoglobin 12.7 g/dL. ASSESSMENT: 1. Acute kidney injury, prerenal, currently improved, maintain on IV fluids. I will continue with IV fluids for now. No nephrotoxic medications on board. Check Prograf level. 2. Status post donor renal allograft 2010 at [facility]. 3. Chronic kidney disease secondary to chronic allograft nephropathy and possibly underlying diabetic nephropathy as well as patient does have proteinuria. Check Prograf level. Continue with the Prograf and the CellCept for now. Patient will need further evaluation with 24-hour urine to quantify the proteinuria down the road as outpatient. 4. Gastrointestinal bleed with positive gastric fluid for occult blood. Hemoglobin is currently stable at 12.7 g/dL. No active bleeding noted currently. 5. Diabetic ketoacidosis. The blood sugar is currently at 272, status post treatment. PLAN: Continue with IV fluids. Repeat labs in a.m. Check Prograf level in a.m. Thank you for this consultation. We will continue to follow the patient with you during his hospitalization. MMODL / IJN: [id number] /
[2019-03-21] MEDS: LACTATED RINGERS 1,000 ML IV SCH (11:38)
[2019-03-21 11:59] LABS: Glucose,Whole Blood 247 mg/dL (75-99)
[2019-03-21] MEDS ORDERED: TRIMETHOBENZAMIDE 100 MG/ML 2 ML VIAL IM PRN (12:12)
[2019-03-21 14:08] VITALS: BMI 19.9
--- NOTE | 2019-03-21 14:44 | P.PN ---
Subjective Progress Note Date: 03/21/19 Principal diagnosis: Patient is a pleasant 64-year-old male with history of type 1 diabetes mellitus, chronic kidney disease, post renal transplant on antirejection medications came in with compensative for nausea vomiting multiple episodes has been going on for last 4 days denied any flulike symptoms denied any fever chills. Patient has chronic diarrhea about 8 episodes a day patient denied any increase the diarrhea but there was a concern that patient may have dark-colored stool in the toilet. Patient denied any abdominal pain. Patient has all the complications of diab etes mellitus including diabetic Retinopathy and nephropathy neuropathy and diuretic gastroparesis. Patient chronic diarrhea was believed to be secondary to anti-rejection medications patient is on mycophenolate and tacrolimus with hypomagnesemia which will be corrected. Patient is also found to be in DKA, patient is on IV insulin we'll repeat another basic metabolic profile left for that comes back, on Mylanta and Patient will be switched to his regular insulin unsure whether patient is taking his insulin on regular basis because of his nausea vomiting. 03/21/2019 Patient is lying in bed sleeping but easily arousable. Patient states he had noticed dark black stool last night. Patient is currently on aspirin and Plavix and will be held at this time as GI is planning to do an endoscope in the morning. Patient had another episode of vomiting today and has been nothing by mouth. Objective - Vital Signs Vital signs: Vital Signs Temp 97.9 F 03/21/19 11:32 Pulse 84 03/21/19 07:50 Resp 18 03/21/19 11:32 BP 145/57 03/21/19 12:01 Pulse Ox 97 03/21/19 11:32 Intake & Output 03/20/19 03/21/19 03/21/19 18:59 06:59 18:59 Intake Total 800 Balance 800 Weight 64.41 kg 61.2 kg 61.2 kg Intake: IV 800 Sodium Chloride 0.9% 1, 800 000 ml @ 100 mls/hr IV . Q10H [facility] Rx#:[id number] Other: # Voids 1 # Bowel Movements 1 - Exam GENERAL: The patient is alert and oriented x3, not in any acute distress. Well developed, well nourished. HEENT: Pupils are round and equally reacting to light. Patient has significant vision problems EOMI. No scleral icterus. No conjunctival pallor. Normocephalic, atraumatic. No pharyngeal erythema. No thyromegaly. CARDIOVASCULAR: S1 and S2 present. No murmurs, rubs, or gallops. PULMONARY: Chest is clear to auscultation, no wheezing or crackles. ABDOMEN: Soft, nontender, nondistended, normoactive bowel sounds. No palpable organomegaly. MUSCULOSKELETAL: No joint swelling or deformity. EXTREMITIES: No cyanosis, clubbing, or pedal edema. NEUROLOGICAL: Gross neurological examination did not reveal any focal deficits. SKIN: No rashes. - Labs CBC & Chem 7: 03/21/19 05:16 03/21/19 05:16 Labs: Abnormal Lab Results - Last 24 Hours (Table) 03/20/19 03/21/19 03/21/19 Range/Units 17:14 05:16 05:16 Hgb 12.7 L (13.0-17.5) gm/dL MCHC 30.1 L (31.0-37.0) g/dL Lymphocytes # 0.9 L (1.0-4.8) k/uL Sodium 135 L (137-145) mmol/L Carbon Dioxide 18 L (22-30) mmol/L BUN 33 H (9-20) mg/dL Creatinine 2.33 H (0.66-1.25) mg/dL Glucose 272 H (74-99) mg/dL POC Glucose (mg/dL) 270 H (75-99) mg/dL 03/21/19 03/21/19 Range/Units 06:54 11:57 Hgb (13.0-17.5) gm/dL MCHC (31.0-37.0) g/dL Lymphocytes # (1.0-4.8) k/uL Sodium (137-145) mmol/L Carbon Dioxide (22-30) mmol/L BUN (9-20) mg/dL Creatinine (0.66-1.25) mg/dL Glucose (74-99) mg/dL POC Glucose (mg/dL) 277 H 247 H (75-99) mg/dL Assessment and Plan Assessment: -Possible peptic ulcer disease for which patient is on Protonix and possible upper GI bleed from peptic ulcer disease will monitor him patient will be on the IV Protonix. Patient will be started on diet to clear liquids. Patient continues to have vomiting and noticed dark black stools and will be nothing by mouth as GI will be scoping him tomorrow to assess for possible bleed. -Mild acute renal failure on chronic kidney disease chronic kidney disease secondary to diabetic nephropathy patient is post renal transplant will be resumed on renal transplant medications nephrology will be consulted patient will be continued on IV fluids. Creatinine slightly worsened it is currently 2.33 -Possible mild DKA patient is presently in IV insulin which will be switched to his insulin regimen and resuming his anion gap resolved but will likely get a stat basic metabolic profile before we switch him to start him on diet. -Type 1 diabetes mellitus with the diabetic peripheral neuropathy, nephropathy gastroparesis, retinopathy. Patient resumed on his home regimen along with sliding scale. -Hypomagnesemia secondary to tacrolimus this will be replaced repeat magnesium tomorrow. Repeat magnesium is 2.0 today -Chronic kidney disease status post renal transplant further management as mentioned above -Hypoglycemia uncontrolled blood sugars secondary to nausea vomiting which is again secondary to peptic ulcer disease probably and nausea vomiting can be secondary to DKA itself -Diabetes peripheral neuropathy -Coronary artery disease with recent stents in month of January for will be resumed and dual antiplatelet therapy and a statin medications. Dual antiplatelet or being held for endoscoped tomorrow -Hypothyroidism -Hypertension -Gastroesophageal reflux disease -DVT prophylaxis with subcutaneous heparin -Continued smoking:, Counseling was provided
--- NOTE | 2019-03-21 15:30 | P.CONS ---
History of Present Illness - Reason for Consult Consult date: 03/21/19 Nausea and vomiting, coffee-ground emesis Requesting physician: Jeny Garcia - Chief Complaint Nausea and vomiting - History of Present Illness 64-year-old male with a medical history significant for diabetes mellitus insulin-dependent, chronic kidney disease status post renal transplant, and complications related to his diabetes including retinopathy, nephropathy, neuropathy and gastroparesis who presented to the hospital due to the constellation of symptoms. The patient reports flulike symptoms over the past 4 days including nausea, vomiting and diarrhea. Patient reports that he has had chronic diarrhea since being started on tacrolimus and mycophenolate after his kidney transplant. He reports intractable nausea and vomiting prior to presentation. He reports 3 episodes of dark black emesis described as "Jell-O like" in appearance. He denies any fevers or chills. Denies any melena with the bowel movements. Previously he went EGD in 08/2018 significant for gastritis and retained food in the stomach concerning for gastroparesis. Hemoglobin on presentation 12.2, bili 185,000, total bilirubin 1.1, alkaline phosphatase 159, AST 24 and ALT 28. Seen on the medical floor the patient has had another episode of vomiting this morning after being given liquids. Patient is on aspirin and Plavix. Review of Systems REVIEW OF SYSTEMS: CONSTITUTIONAL: Denies any fevers, chills, weight change or fatigue. CARDIOVASCULAR: Denies any chest pain, palpitations high or low blood pressures RESPIRATORY: Denies any shortness of breath, hemoptysis or cough. GENITOURINARY: No dysuria or hematuria, status post kidney transplant. MUSCULOSKELETAL: No weakness reported. SKIN: Denies any new rashes or lesions, jaundice or pallor. PSYCHIATRIC: Denies any depression or anxiety. NEUROLOGY: Denies headache, denies any new focal deficits. EARS/NOSE/THROAT: No recent hearing change, congestion, nasal discharge or sore throat. EYES: No pain in eyes, discharge or change in vision. GASTROINTESTINAL: As per HPI. Past Medical History Past Medical History: Coronary Artery Disease (CAD), Cancer, Chest Pain / Angina, CVA/TIA, Diabetes Mellitus, Dialysis, Eye Disorder, GERD/Reflux, Hyperlipidemia, Hypertension, Myocardial Infarction (ME), Renal Disease, Thyroid Disorder Additional Past Medical History / Comment(s): Pt recently admitted to [facility] on 01/19/19 with NSTEMI, UTI, DKA Other hx: IDDM, neuropathy bilateral legs/feet, retinopathy bilaterally and is nearly blind, gastroparesis, ESRD with past hemo/peritoneal dialysis and in 2010 received kidney transplant, CKD stage II or III, recurrent UTIs, UTI with sepsis, does not completely empty bladder- self caths on occasion, incontinent of urine at times, TIAs, 2014 fall with multiple fractured ribs, vascular dementia per spouse, skin cancer with removal, past medical record notes CDiff 3 times in the past-and that spouse stated to be careful with antibiotic use. Last Myocardial Infarction Date:: 2015 History of Any Multi-Drug Resistant Organisms: C-DIFF Year Discovered:: "years ago" MDRO Source:: stool Past Surgical History: Heart Catheterization, Heart Catheterization With Stent Additional Past Surgical History / Comment(s): 01/2019 cardiac cath tx medically, PCI with stents in 2012 and 2015, kidney transplant November 2010, patient has an AV fistula in the left upper extremity, colonoscopy, skin cancer removal , bilateral eye retinal bleeds with surgery, teeth extractions. Past Anesthesia/Blood Transfusion Reactions: No Reported Reaction Date of Last Stent Placement:: 09/2015 Smoking Status: Current every day smoker - Past Family History Brother(s) Additional Family Medical History / Comment(s): Brother had depression and comitted suicide. Father Family Medical History: Diabetes Mellitus Additional Family Medical History / Comment(s): Father lived into his 90s. Mother Family Medical History: Myocardial Infarction (ME) Additional Family Medical History / Comment(s): Mother of a ME at the age of 57yrs. Medications and Allergies Home Medications Medication Instructions Recorded Confirmed Type Sertraline [Zoloft] 100 mg PO HS 09/21/13 03/20/19 History Aspirin 81 mg PO DAILY #30 chew 09/27/15 03/20/19 Rx Atorvastatin [Lipitor] 80 mg PO HS #30 tab 09/27/15 03/20/19 Rx Levothyroxine Sodium [Synthroid] 50 mcg PO DAILY 03/13/17 03/20/19 History Mycophenolate Sodium [Mycophenolic 720 mg PO BID 03/13/17 03/20/19 History Acid] Omeprazole [PriLOSEC] 20 mg PO AC-BID 03/13/17 03/20/19 History Tacrolimus [Prograf] 3 mg PO Q12H 12/17/17 03/20/19 History Insulin Aspart [NovoLOG Flexpen] 8 unit SQ AC-BRKFST 01/17/18 03/20/19 History Insulin Detemir [Levemir Flextouch] 20 units SQ BID 09/11/18 03/20/19 History Clopidogrel [Plavix] 75 mg PO DAILY 30 Days #30 tab 01/22/19 03/20/19 Rx Sodium Bicarbonate Tab 650 mg PO BID 30 Days #60 tab 01/22/19 03/20/19 Rx amLODIPine [Norvasc] 5 mg PO HS 30 Days #30 tab 01/22/19 03/20/19 Rx hydrALAZINE HCL [Apresoline] 25 mg PO TID 30 Days #90 tab 01/22/19 03/20/19 Rx Insulin Aspart [NovoLOG Flexpen] 3 - 4 units SQ AC-BID 03/20/19 03/20/19 History Metoprolol Tartrate [Lopressor] 25 mg PO BID 03/20/19 03/20/19 History Allergies Allergy/AdvReac Type Severity Reaction Status Date / Time No Known Allergies Allergy Verified 03/20/19 09:35 Physical Exam Vitals: Vital Signs Temp Pulse Resp BP Pulse Ox 03/21/19 12:01 145/57 03/21/19 11:32 97.9 F 18 209/93 97 03/21/19 07:50 98.0 F 84 16 165/75 98 03/21/19 04:00 97.9 F 77 16 139/63 96 03/21/19 00:00 98.2 F 75 18 119/67 95 03/20/19 20:00 98.4 F 75 16 115/54 98 03/20/19 17:00 91 18 153/70 98 03/20/19 16:00 99.4 F 97 18 142/79 97 Intake and Output 03/21/19 03/21/19 03/21/19 06:59 14:59 22:59 Intake Total 800 Balance 800 Intake: IV 800 Sodium Chloride 0.9% 1, 800 000 ml @ 100 mls/hr IV . Q10H [facility] Rx#:[id number] Other: # Voids 1 # Bowel Movements 1 Weight 61.2 kg 61.2 kg On physical examination, patient appears comfortable in no apparent distress. HEAD: Normocephalic, atraumatic. EYES: No scleral icterus. No conjunctival injection. MOUTH: No lesions, tongue midline. NECK: Trachea midline, no gross abnormalities. CHEST: Clear to auscultation with no wheezing or rhonchi appreciated. HEART: Regular rate and rhythm. ABDOMEN: Soft, mildly tender to palpation. Bowel sounds are positive. No organomegaly. No guarding or rigidity. EXTREMITIES: No pedal edema. SKIN: No rashes, no jaundice. NEUROLOGIC: Alert and oriented x3. No focal deficits. Results CBC & Chem 7: 03/21/19 05:16 03/21/19 05:16 Labs: Abnormal Lab Results - Last 24 Hours (Table) 03/20/19 03/21/19 03/21/19 Range/Units 17:14 05:16 05:16 Hgb 12.7 L (13.0-17.5) gm/dL MCHC 30.1 L (31.0-37.0) g/dL Lymphocytes # 0.9 L (1.0-4.8) k/uL Sodium 135 L (137-145) mmol/L Carbon Dioxide 18 L (22-30) mmol/L BUN 33 H (9-20) mg/dL Creatinine 2.33 H (0.66-1.25) mg/dL Glucose 272 H (74-99) mg/dL POC Glucose (mg/dL) 270 H (75-99) mg/dL 03/21/19 03/21/19 Range/Units 06:54 11:57 Hgb (13.0-17.5) gm/dL MCHC (31.0-37.0) g/dL Lymphocytes # (1.0-4.8) k/uL Sodium (137-145) mmol/L Carbon Dioxide (22-30) mmol/L BUN (9-20) mg/dL Creatinine (0.66-1.25) mg/dL Glucose (74-99) mg/dL POC Glucose (mg/dL) 277 H 247 H (75-99) mg/dL Abdominal x-ray: report reviewed (Multiple renal calculi with nonobstructive bowel gas pattern on KUB x-ray) Assessment and Plan (1) Coffee ground emesis Narrative/Plan: 64-year-old male with multiple medical comorbidities who presented to the hospital with complaints of intractable nausea and vomiting. The patient previously had EGD on 08/2018 with findings of gastritis and retained food suggestive of diabetic gastroparesis. The patient has multiple other complications of diabetes including retinopathy, nephropathy and neuropathy. He had multiple episodes of vomiting at home including 3 episodes of dark colored vomitus. Testing of gastric output after presentation was positive for occult blood. He will bilirubin remained stable at 12.7. He denies any associated abdominal pain. He has continued to have vomiting today. Unclear etiology, may be related to peptic ulcer disease, Rosalee-Ojeda tear, AVM or other etiology Current Visit: Yes Status: Acute Code(s): K92.0 - HEMATEMESIS SNOMED Code(s): 26874757 (2) Gastritis Current Visit: Yes Status: Acute Code(s): K29.70 - GASTRITIS, UNSPECIFIED, WITHOUT BLEEDING SNOMED Code(s): 7789794 (3) Gastroparesis due to DM Current Visit: Yes Status: Acute Code(s): E11.43 - TYPE 2 DIABETES W DIABETIC AUTONOMIC (POLY)NEUROPATHY; K31.84 - GASTROPARESIS SNOMED Code(s): 643106720 (4) Upper GI bleed Current Visit: Yes Status: Acute Code(s): K92.2 - GASTROINTESTINAL HEMORRHAGE, UNSPECIFIED SNOMED Code(s): 79598057 Plan: Supportive care Continue to monitor CBC and transfuse as needed Continue to monitor vomitus Zofran has been changed to [id number] Tigan as needed for breakthrough nausea added Protonix increased to twice daily We'll plan for EGD tomorrow for further evaluation Continue tight glycemic control Continue replacement of electrolytes Thank you for allowing us to participate in the care of the patient we will continue to follow
[2019-03-21 17:07] LABS: Glucose,Whole Blood 194 mg/dL (75-99)
[2019-03-21] MEDS: ONDANSETRON 4 MG/2 ML VIAL IVP SCH ×2 (17:34→23:06)
[2019-03-21] MEDS: amLODIPine 10 MG TAB PO SCH (20:48)
[2019-03-21] MEDS: SERTRALINE 100 MG TAB PO SCH (20:48)
[2019-03-21] MEDS: ATORVASTATIN 80 MG TAB PO SCH (20:48)
[2019-03-21 20:53] LABS: Glucose,Whole Blood 181 mg/dL (75-99)
[2019-03-22 05:38] LABS: Glucose,Whole Blood 203 mg/dL (75-99)
[2019-03-22] MEDS: INSULIN ASPART (NovoLOG) 100 UNIT/ML VIAL SQ SCH ×4 (06:46→12:48)
[2019-03-22 07:15] LABS: Basophils % (A) 0 %; Eosinophils % (A) 1 %; HGB 11.6 gm/dL (13.0-17.5); Hypochromasia Moderate; Lymphocytes # (A) 1.2 k/uL (1.0-4.8); Lymphocytes % (A) 16 %; MCH 28.6 pg (25.0-35.0); MCHC 29.8 g/dL (31.0-37.0); MCV 96.1 fL (80.0-100.0); Mean Platelet Volume 9.5; Monocytes # (A) 0.5 k/uL (0-1.0); Monocytes % (A) 6 %; Neutrophils # (A) 5.6 k/uL (1.3-7.7); Neutrophils % (A) 75 %; Platelet Count 188 k/uL (150-450); RBC 4.06 m/uL (4.30-5.90); RDW 13.5 % (11.5-15.5); WBC 7.5 k/uL (3.8-10.6)
[2019-03-22 07:33] LABS: Calcium 8.5 mg/dL (8.4-10.2); Potassium 4.6 mmol/L (3.5-5.1)
[2019-03-22] MEDS: LACTATED RINGERS 1,000 ML IV SCH (08:00)
[2019-03-22] MEDS: SODIUM CHLORIDE 0.9% 1,000 ML IV SCH (08:00)
[2019-03-22] MEDS ORDERED: LACTATED RINGERS 1,000 ML IV SCH (08:30)
[2019-03-22] MEDS ORDERED: SODIUM BICARBONATE TAB 650 MG TAB PO SCH (09:00)
[2019-03-22] MEDS ORDERED: PROPOFOL 10 MG/ML 20 ML VIAL IV ONE (09:20)
[2019-03-22 09:21] VITALS: RESP 20; TEMP 97.7
[2019-03-22] MEDS ORDERED: IV FLUID CONTINUATION 900 ML IV ONE (09:23)
--- NOTE | 2019-03-22 09:29 | P.PCN ---
Date of Procedure: 03/22/19 Procedure(s) Performed: BRIEF HISTORY: Patient is a 64-year-old, pleasant, white male scheduled for an upper endoscopy as a part of evaluation of coffee ground emesis. He had several episodes of nausea vomiting followed by coffee-ground emesis. Hemoglobin remained stable.. PROCEDURE PERFORMED: Esophagogastroduodenoscopy with biopsy. PREOPERATIVE DIAGNOSIS: Acute UGI bleed. IV sedation per anesthesia. PROCEDURE: After informed consent was obtained, the patient was brought into the endoscopy unit. IV sedation was administered by Anesthesia under continuous monitoring. Initially the Olympus GIF-140 video endoscope was inserted into the mouth. Esophagus intubated without any difficulty. It was gradually advanced into the stomach and duodenum and carefully examined. The bulb and the second part of the duodenum appeared normal. The scope at this time was withdrawn to the stomach, adequately insufflated with air, and upon careful examination, mucosa of the antrum had mild gastritis and biopsies were done from this area. In the proximal body the stomach and cardia there was severe gastritis noted. The rest of the, body, and the fundus appeared normal. The scope was then withdrawn into the esophagus. The GE junction was located at 39 cm from the incisors. The esophagus appeared normal. There were no erosions or ulcerations seen and the patient tolerated the procedure well. IMPRESSION: 1. Linear erosions in the distal esophagus consistent with LA grade B reflux esophagitis. 2.. Severe gastritis involving the proximal body the stomach and cardia. RECOMMENDATIONS: The findings of this examination were discussed with the patient as well as his family. He will continue with Protonix 40 mg daily. Diet will be advanced as tolerated. Await biopsy results.
[2019-03-22] MEDS: METOPROLOL TARTRATE 25 MG TAB PO SCH (09:46)
[2019-03-22] MEDS: TACROLIMUS 1 MG CAP PO SCH (09:46)
[2019-03-22] MEDS: PANTOPRAZOLE 40 MG/10 ML VIAL IV SCH (09:46)
[2019-03-22] MEDS: MYCOPHENOLATE SODIUM DR 180 MG TABLET.DR PO SCH (09:46)
[2019-03-22] MEDS: ONDANSETRON 4 MG/2 ML VIAL IVP SCH (09:46)
[2019-03-22] MEDS: LEVOTHYROXINE 50 MCG TAB PO SCH (09:46)
[2019-03-22] MEDS: INSULIN DETEMIR (LEVEMIR) 100 UNIT/ML SYR SQ SCH (09:47)
--- NOTE | 2019-03-22 10:14 | PN ---
PROGRESS NOTE Patient is seen for followup for acute kidney injury. Renal function has improved slightly; however, creatinine is staying at about 2.3 now. Patient's baseline creatinine is about 1.9 to 2.0 mg/dL. He is maintained on IV fluids. Patient's is present at bedside. She is concerned regarding his overall decline in general condition since January, with decreased oral intake, on and off diarrhea, weakness, not able to do as much as he used to previously. He does not have any ongoing persistent nausea and vomiting. However, he does get episodes of nausea and vomiting. Patient does have underlying gastroparesis. He has not had any fevers. He did have an EGD in July. However, he has not had a colonoscopy. No active bleeding noted since admission. PHYSICAL EXAMINATION: On examination this morning, blood pressure is 137/72, heart rate 71 per minute. He is afebrile. EXAMINATION OF THE HEART: S1 and S2. EXAMINATION OF LUNGS: Decreased breath sounds at bases. No crackles or wheezing is heard. ABDOMEN: Soft, non-tender. Examination of lower extremities shows no evidence of edema. METALLURGICAL OR MATERIALS TECHNICIAN exam is grossly intact. ASSESSMENT: 1. Acute kidney injury, prerenal, currently somewhat improved; creatinine staying at 2.3 mg/dL. 2. Metabolic acidosis, maintained on oral sodium bicarb, which I will increase. I will also change the fluid to Ringer lactate, as it can help with the acidosis as compared to normal saline. 3. Diabetic ketoacidosis, now resolved. 4. History of gastroparesis. 5. Gastrointestinal bleed. No active bleeding noted. Recommend colonoscopy to be done this admission prior to discharge, given the fact that patient is on immunosuppressive medication and has had diarrhea on and off for quite some time. PLAN: Continue IV fluids. Change to Ringer Lactate. Increase sodium bicarb to t.i.d. Recommend colonoscopy this admission, given the diarrhea in an immunosuppressed patient. Follow up on Prograf level. MMODL / IJN: [id number] /
[2019-03-22 11:47] LABS: Glucose,Whole Blood 192 mg/dL (75-99)
[2019-03-22 13:00] VITALS: BP 178/73; PULSE 60
--- NOTE | 2019-03-22 16:31 | P.DS ---
Providers Date of admission: 03/20/19 10:07 Attending physician: Nate Forde Consults: 03/20/19 12:25 Consult Physician Routine Consulting Provider: Mahsa Montero Consult Reason/Comments: Post renal transplant, PILAR Do you want consulting provider notified?: Yes 03/20/19 21:28 Consult Physician Routine Consulting Provider: Kraig Corley Consult Reason/Comments: + gastic occult Do you want consulting provider notified?: Yes, Notify in am Primary care physician: [facility] Course: 64-year-old male with history of type 1 diabetes mellitus, chronic kidney disease, post renal transplant on antirejection medications came in with compensative for nausea vomiting multiple episodes has been going on for last 4 days denied any flulike symptoms denied any fever chills. Patient has chronic diarrhea about 8 episodes a day patient denied any increase the diarrhea but there was a concern that patient may have dark-colored stool in the toilet. Patient denied any abdominal pain. Patient has all the complications of diabetes mellitus including diabetic Retinopathy and nephropathy neuropathy and diuretic gastroparesis. Patient chronic diarrhea was believed to be secondary to anti-rejection medications patient is on mycophenolate and tacrolimus with hypomagnesemia which will be corrected. Patient is also found to be in DKA, patient is on IV insulin we'll repeat another basic metabolic profile left for that comes back, on Mylanta and Patient will be switched to his regular insulin unsure whether patient is taking his insulin on regular basis because of his nausea vomiting. 03/21/2019 Patient is lying in bed sleeping but easily arousable. Patient states he had noticed dark black stool last night. Patient is currently on aspirin and Plavix and will be held at this time as GI is planning to do an endoscope in the morning. Patient had another episode of vomiting today and has been nothing by mouth. 03/22/2019 Patient doesn't have any more stools patient has a esophagitis and gastritis severe and changing his Prilosec to 40 twice a day patient that renal failure did not improve, remained stable. 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 Wilson at [facility] for colonoscopy. PHYSICAL EXAMINATION: GENERAL: The patient is alert and oriented x3, not in any acute distress. Well developed, well nourished. HEENT: Pupils are round and equally reacting to light. EOMI. No scleral icterus. No conjunctival pallor. Normocephalic, atraumatic. No pharyngeal erythema. No thyromegaly. CARDIOVASCULAR: S1 and S2 present. No murmurs, rubs, or gallops. PULMONARY: Chest is clear to auscultation, no wheezing or crackles. ABDOMEN: Soft, nontender, nondistended, normoactive bowel sounds. No palpable organomegaly. MUSCULOSKELETAL: No joint swelling or deformity. EXTREMITIES: No cyanosis, clubbing, or pedal edema. NEUROLOGICAL: Gross neurological examination did not reveal any focal deficits. SKIN: No rashes. Assessment and Plan Assessment: -Upper GI bleed: Secondary disability some gastritis patient will be discharged no evidence of GI bleed at this time -Mild acute renal failure on chronic kidney disease chronic kidney disease secondary to diabetic nephropathy patient is post renal transplant will be resumed on renal transplant medications nephrology no improvement IV fluids -Possible mild DKA on admission -Type 1 diabetes mellitus with the diabetic peripheral neuropathy, nephropathy gastroparesis, retinopathy. -Hypomagnesemia secondary to tacrolimus -Chronic kidney disease status post renal transplant further management as mentioned above -Diabetes peripheral neuropathy -Coronary artery disease with recent stents in month of January for will be resumed and dual antiplatelet therapy and a statin medications. Dual antiplatelet or being held for endoscoped tomorrow -Hypothyroidism -Hypertension -Gastroesophageal reflux disease Patient Condition at Discharge: Fair Plan - Discharge Summary Discharge Rx Participant: No New Discharge Prescriptions: New Diphenox-Atrop 2.5-0.025 mg [Lomotil] 1 each PO Q6HR PRN #30 tab PRN Reason: Diarrhea Fluticasone/Salmeterol [Advair 250-50 Diskus] 1 inhalation PO BID #1 inhaler Albuterol Inhaler [Ventolin Hfa Inhaler] 1 - 2 puff INHALATION Q6HR PRN #1 inhaler PRN Reason: Shortness Of Breath Or Wheezing Simethicone 80 mg PO TID #60 tab.chew INSULIN ASPART (NovoLOG) [NovoLOG (formulary)] 10 unit SQ AC-TID #1 vial Continue Sertraline [Zoloft] 100 mg PO HS Aspirin 81 mg PO DAILY #30 chew Atorvastatin [Lipitor] 80 mg PO HS #30 tab Mycophenolate Sodium [Mycophenolic Acid] 720 mg PO BID Levothyroxine Sodium [Synthroid] 50 mcg PO DAILY Tacrolimus [Prograf] 3 mg PO Q12H Insulin Aspart [NovoLOG Flexpen] 8 unit SQ AC-BRKFST Insulin Detemir [Levemir Flextouch] 20 units SQ BID hydrALAZINE HCL [Apresoline] 25 mg PO TID 30 Days #90 tab amLODIPine [Norvasc] 5 mg PO HS 30 Days #30 tab Clopidogrel [Plavix] 75 mg PO DAILY 30 Days #30 tab Sodium Bicarbonate Tab 650 mg PO BID 30 Days #60 tab Metoprolol Tartrate [Lopressor] 25 mg PO BID Changed Omeprazole [PriLOSEC] 40 mg PO AC-BID #0 Discontinued Insulin Aspart [NovoLOG Flexpen] 3 - 4 units SQ AC-BID Discharge Medication List Sertraline [Zoloft] 100 mg PO HS 09/21/13 [History] Aspirin 81 mg PO DAILY #30 chew 09/27/15 [Rx] Atorvastatin [Lipitor] 80 mg PO HS #30 tab 09/27/15 [Rx] Levothyroxine Sodium [Synthroid] 50 mcg PO DAILY 03/13/17 [History] Mycophenolate Sodium [Mycophenolic Acid] 720 mg PO BID 03/13/17 [History] Tacrolimus [Prograf] 3 mg PO Q12H 12/17/17 [History] Insulin Aspart [NovoLOG Flexpen] 8 unit SQ AC-BRKFST 01/17/18 [History] Insulin Detemir [Levemir Flextouch] 20 units SQ BID 09/11/18 [History] Clopidogrel [Plavix] 75 mg PO DAILY 30 Days #30 tab 01/22/19 [Rx] Sodium Bicarbonate Tab 650 mg PO BID 30 Days #60 tab 01/22/19 [Rx] amLODIPine [Norvasc] 5 mg PO HS 30 Days #30 tab 01/22/19 [Rx] hydrALAZINE HCL [Apresoline] 25 mg PO TID 30 Days #90 tab 01/22/19 [Rx] Metoprolol Tartrate [Lopressor] 25 mg PO BID 03/20/19 [History] Albuterol Inhaler [Ventolin Hfa Inhaler] 1 - 2 puff INHALATION Q6HR PRN #1 inhaler 03/22/19 [Rx] Diphenox-Atrop 2.5-0.025 mg [Lomotil] 1 each PO Q6HR PRN #30 tab 03/22/19 [Rx] Fluticasone/Salmeterol [Advair 250-50 Diskus] 1 inhalation PO BID #1 inhaler 03/22/19 [Rx] INSULIN ASPART (NovoLOG) [NovoLOG (formulary)] 10 unit SQ AC-TID #1 vial 03/22/19 [Rx] Omeprazole [PriLOSEC] 40 mg PO AC-BID #0 03/22/19 [Rx] Simethicone 80 mg PO TID #60 tab.chew 03/22/19 [Rx] Follow up Appointment(s)/Referral(s): Mahsa Montero MD [STAFF PHYSICIAN] - 1 Week Alyssa [place] MD [STAFF PHYSICIAN] - 1 Week [facility] [Primary Care Provider] - 3 Days Patient Instructions/Handouts: Gastritis (GEN), Chronic Kidney Disease (ED), Diabetic Ketoacidosis (GEN), Acute Nausea and Vomiting (GEN) Activity/Diet/Wound Care/Special Instructions: [facility] You should here [facility] them by Sunday03/26/2019. Please contact the [facility] if you do not hear from them. Discharge Disposition: HOME WITH HOME HEALTH SERVICES
== END 2019-03-22 16:33 | disposition home health service (06) | DRG 377 ==
LOC: EC 07:47 → 3SCARD 10:07
PROVIDERS: ADMIT Hospitalist; ATTEND Hospitalist
PROC: 0DB78ZX Excision of Stomach, Pylorus, Via Natural or Artificial Opening Endoscopic, Diagnostic (ICD-10-PCS; principal; 2019-03-22 09:00)
DX: K29.71 Gastritis, unspecified, with bleeding (principal); E10.10 Type 1 diabetes mellitus with ketoacidosis without coma; I12.0 Hypertensive chronic kidney disease with stage 5 chronic kidney disease or end stage renal disease; N17.9 Acute kidney failure, unspecified; Z94.0 Kidney transplant status; E03.9 Hypothyroidism, unspecified; E10.319 Type 1 diabetes mellitus with unspecified diabetic retinopathy without macular edema; E10.41 Type 1 diabetes mellitus with diabetic mononeuropathy; E10.43 Type 1 diabetes mellitus with diabetic autonomic (poly)neuropathy; E10.649 Type 1 diabetes mellitus with hypoglycemia without coma; E78.5 Hyperlipidemia, unspecified; E83.42 Hypomagnesemia; E86.0 Dehydration; F17.200 Nicotine dependence, unspecified, uncomplicated; F32.9 Major depressive disorder, single episode, unspecified; I25.10 Atherosclerotic heart disease of native coronary artery without angina pectoris; K21.0 Gastro-esophageal reflux disease with esophagitis; E10.22 Type 1 diabetes mellitus with diabetic chronic kidney disease; K31.84 Gastroparesis; T45.1X5A Adverse effect of antineoplastic and immunosuppressive drugs, initial encounter; H54.7 Unspecified visual loss; I25.2 Old myocardial infarction; Z79.02 Long term (current) use of antithrombotics/antiplatelets; Z79.4 Long term (current) use of insulin; Z79.82 Long term (current) use of aspirin; Z79.890 Hormone replacement therapy; Z79.899 Other long term (current) drug therapy; Z81.8 Family history of other mental and behavioral disorders; Z82.49 Family history of ischemic heart disease and other diseases of the circulatory system; Z83.3 Family history of diabetes mellitus; Z85.828 Personal history of other malignant neoplasm of skin; Z86.73 Personal history of transient ischemic attack (TIA), and cerebral infarction without residual deficits; Z87.440 Personal history of urinary (tract) infections; Z99.2 Dependence on renal dialysis; Z95.5 Presence of coronary angioplasty implant and graft; Z86.19 Personal history of other infectious and parasitic diseases; Z98.890 Other specified postprocedural states
CPT/HCPCS: 36415; 43239; 71046; 74018; 80048; 80053; 80197; 82009; 82271; 82550; 82803; 83605; 83690; 83735; 84484; 85025; 85730; 86850; 86900; 86901; 88305; 96361; 96365; 96366; 96372; 96375; 99291

== ENCOUNTER 2019-03-31 19:23 | Inpatient (IN) | payer OTHER, MEDICARE ==
[2019-03-31 20:04] LABS: Glucose,Whole Blood 222 mg/dL (75-99)
[2019-03-31] MEDS ORDERED: ONDANSETRON 4 MG/2 ML VIAL IVP STA ×2 (20:51→23:10)
[2019-03-31] MEDS ORDERED: SODIUM CHLORIDE 0.9% 1,000 ML IV STA (20:51)
[2019-03-31] MEDS ORDERED: PANTOPRAZOLE 40 MG/10 ML VIAL IVP STA (20:52)
--- NOTE | 2019-03-31 21:02 | ED ---
Nausea/Vomiting/Diarrhea HPI - General Chief complaint: Nausea/Vomiting/Diarrhea Stated complaint: Vomiting Time Seen by Provider: 03/31/19 20:35 Source: patient Mode of arrival: ambulatory Limitations: no limitations - History of Present Illness Initial comments: Patient is a 64-year-old male with multiple comorbidities including kidney transplant, presenting to emergency Department with complaints of nausea, vomiting, diarrhea for 4 days. Patient was recently admitted to the ER for DKA and gastroparesis. Patient was doing well for a few days and then started having more nausea and vomiting and diarrhea. His states he has been vomiting blood as well. They did say he had a scope done while in the hospital recently and they did not find any abnormalities. Patient denies any fever, abdominal pain, chest pain, shortness of breath. He is complaining of some mild throat soreness. Patient's states he has not been able take any of his medications secondary to his vomiting. She has been giving him his insulin. Patient last had 10 units of insulin approximately 4 hours prior to arrival. His sugars have been running high at home and the 4 to 500s for the last few days. states that before the ER today it was in the 300s. There are no other complaints at this time. Upon arrival to the ER, his vitals are stable. - Related Data Home Medications Medication Instructions Recorded Confirmed Sertraline [Zoloft] 100 mg PO HS 09/21/13 03/20/19 Levothyroxine Sodium [Synthroid] 50 mcg PO DAILY 03/13/17 03/20/19 Mycophenolate Sodium [Mycophenolic 720 mg PO BID 03/13/17 03/20/19 Acid] Tacrolimus [Prograf] 3 mg PO Q12H 12/17/17 03/20/19 Insulin Aspart [NovoLOG Flexpen] 8 unit SQ AC-BRKFST 01/17/18 03/20/19 Insulin Detemir [Levemir Flextouch] 20 units SQ BID 09/11/18 03/20/19 Metoprolol Tartrate [Lopressor] 25 mg PO BID 03/20/19 03/20/19 Previous Rx's Medication Instructions Recorded Aspirin 81 mg PO DAILY #30 chew 09/27/15 Atorvastatin [Lipitor] 80 mg PO HS #30 tab 09/27/15 Clopidogrel [Plavix] 75 mg PO DAILY 30 Days #30 tab 01/22/19 Sodium Bicarbonate Tab 650 mg PO BID 30 Days #60 tab 01/22/19 amLODIPine [Norvasc] 5 mg PO HS 30 Days #30 tab 01/22/19 hydrALAZINE HCL [Apresoline] 25 mg PO TID 30 Days #90 tab 01/22/19 Albuterol Inhaler [Ventolin Hfa 1 - 2 puff INHALATION Q6HR PRN #1 03/22/19 Inhaler] inhaler Diphenox-Atrop 2.5-0.025 mg 1 each PO Q6HR PRN #30 tab 03/22/19 [Lomotil] Fluticasone/Salmeterol [Advair 1 inhalation PO BID #1 inhaler 03/22/19 250-50 Diskus] INSULIN ASPART (NovoLOG) [NovoLOG 10 unit SQ AC-TID #1 vial 03/22/19 (formulary)] Omeprazole [PriLOSEC] 40 mg PO AC-BID #0 03/22/19 Simethicone 80 mg PO TID #60 tab.chew 03/22/19 Allergies Allergy/AdvReac Type Severity Reaction Status Date / Time No Known Allergies Allergy Verified 03/31/19 20:04 Review of Systems ROS Statement: Those systems with pertinent positive or pertinent negative responses have been documented in the HPI. ROS Other: All systems not noted in ROS Statement are negative. Past Medical History Past Medical History: Coronary Artery Disease (CAD), Cancer, Chest Pain / Angina, CVA/TIA, Diabetes Mellitus, Dialysis, Eye Disorder, GERD/Reflux, Hyperlipidemia, Hypertension, Myocardial Infarction (NM), Renal Disease, Thyroid Disorder Additional Past Medical History / Comment(s): Pt recently admitted to [facility] on 01/19/19 with NSTEMI, UTI, DKA Other hx: IDDM, neuropathy bilateral legs/feet, retinopathy bilaterally and is nearly blind, gastroparesis, ESRD with past hemo/peritoneal dialysis and in 2010 received kidney transplant, CKD stage II or III, recurrent UTIs, UTI with sepsis, does not completely empty bladder- self caths on occasion, incontinent of urine at times, TIAs, 2014 fall with multiple fractured ribs, vascular dementia per spouse, skin cancer with removal, past medical record notes CDiff 3 times in the past-and that spouse stated to be careful with antibiotic use. Last Myocardial Infarction Date:: 2015 History of Any Multi-Drug Resistant Organisms: C-DIFF Date of last positivie culture/infection: "years ago" MDRO Source:: stool Past Surgical History: Heart Catheterization, Heart Catheterization With Stent Additional Past Surgical History / Comment(s): 01/2019 cardiac cath tx medically, PCI with stents in 2012 and 2015, kidney transplant November 2010, patient has an AV fistula in the left upper extremity, colonoscopy, skin cancer removal , bilateral eye retinal bleeds with surgery, teeth extractions. Past Anesthesia/Blood Transfusion Reactions: No Reported Reaction Date of Last Stent Placement:: 09/2015 Past Psychological History: Depression Smoking Status: Current every day smoker Past Alcohol Use History: None Reported Past Drug Use History: None Reported - Past Family History Brother(s) Additional Family Medical History / Comment(s): Brother had depression and comitted suicide. Father Family Medical History: Diabetes Mellitus Additional Family Medical History / Comment(s): Father lived into his 90s. Mother Family Medical History: Myocardial Infarction (NM) Additional Family Medical History / Comment(s): Mother of a NM at the age of 57yrs. General Exam - General Exam Comments Initial Comments: GENERAL: Patient looks pale, disheveled, actively vomiting. HEAD: Atraumatic, normocephalic. EYES: Pupils equal round and reactive to light, extraocular movements intact, sclera anicteric, conjunctiva are normal. ENT: TMs normal, nares patent, oropharynx clear without exudates. Dry mucous membranes. NECK: Normal range of motion, supple without lymphadenopathy or JVD. LUNGS: Breath sounds clear to auscultation bilaterally and equal. No wheezes rales or rhonchi. HEART: Regular rate and rhythm without murmurs, rubs or gallops. ABDOMEN: Soft, nontender, normoactive bowel sounds. No guarding, no rebound. No masses appreciated. : Deferred EXTREMITIES: Normal range of motion, no pitting or edema. No clubbing or cyanosis. NEUROLOGICAL: Cranial nerves II through XII grossly intact. Normal speech, normal gait. PSYCH: Normal mood, normal affect. SKIN: Warm, Dry, normal turgor, no rashes or lesions noted. Limitations: no limitations Course Vital Signs 03/31/19 04/01/19 19:58 00:14 Temperature 98.4 F Pulse Rate 102 H 98 Respiratory 20 18 Rate Blood Pressure 112/66 118/78 O2 Sat by Pulse 100 99 Oximetry - Reevaluation(s) Reevaluation #1: 04/01/19 00:23 Patient is an inpatient hold. Troponin finally resulted and was elevated at 0.495. EKG was obtained. No acute abnormalities seen on EKG, similar to previous. Troponin elevation is most likely related to PILAR. Serial troponins will be ordered. Patient remains asymptomatic, no chest pain, no shortness of breath. Reevaluation #2: 04/01/19 00:25 UA also resulted showing significant WBC clumps and bacteria. Rocephin 1 g IV piggyback was ordered. Culture is pending. Medical Decision Making - Medical Decision Making Patient is a 64-year-old male presenting with nausea, vomiting, diarrhea for 4 days. Patient was recently admitted for DKA. Glucose upon arrival was 222. Patient was given fluids as well as nausea medications. He is not complaining of pain anywhere. Lab work shows BUN and creatinine are elevated at 48, 2.65, magnesium is low again at 1.2. Patient will be admitted for PILAR, hypo- magnesium, GI consult for hematemesis. Case is discussed with Dr. Cho who is in agreement this plan of care. Patient will be admitted under Dr. Forde. Upon inpatient hold in ER, patient's troponin resulted and was elevated at 0.4 95. EKG was obtained and shows no acute abnormalities, similar to previous EKG. Patient denies any chest pain, short of breath. Troponin elevation is most likely due to achy I. Serial troponins were ordered. Patient's urine also resulted and shows bacteria. Rocephin was ordered for UTI. Urine culture is pending. - Lab Data Result diagrams: 03/31/19 22:09 03/31/19 22:09 Lab Results 03/31/19 03/31/19 03/31/19 Range/Units 20:03 22:09 22:09 WBC 9.5 (3.8-10.6) k/uL RBC 4.06 L (4.30-5.90) m/uL Hgb 11.7 L (13.0-17.5) gm/dL Hct 37.9 L (39.0-53.0) % MCV 93.2 (80.0-100.0) fL MCH 28.7 (25.0-35.0) pg MCHC 30.8 L (31.0-37.0) g/dL RDW 13.8 (11.5-15.5) % Plt Count 193 (150-450) k/uL Neutrophils % 84 % Lymphocytes % 7 % Monocytes % 8 % Eosinophils % 0 % Basophils % 0 % Neutrophils # 8.0 H (1.3-7.7) k/uL Lymphocytes # 0.6 L (1.0-4.8) k/uL Monocytes # 0.7 (0-1.0) k/uL Eosinophils # 0.0 (0-0.7) k/uL Basophils # 0.0 (0-0.2) k/uL PT (9.0-12.0) sec INR (<1.2) APTT (22.0-30.0) sec VBG pH (7.31-7.41) VBG pCO2 (37-51) mmHg VBG HCO3 (24-28) mmol/L Sodium 137 (137-145) mmol/L Potassium 4.7 (3.5-5.1) mmol/L Chloride 96 L (98-107) mmol/L Carbon Dioxide 32 H (22-30) mmol/L Anion Gap 9 mmol/L BUN 48 H (9-20) mg/dL Creatinine 2.65 H (0.66-1.25) mg/dL Est GFR (CKD-EPI)AfAm 28 (>60 ml/min/1.73 sqM) Est GFR (CKD-EPI)NonAf 25 (>60 ml/min/1.73 sqM) Glucose 170 H (74-99) mg/dL POC Glucose (mg/dL) 222 H (75-99) mg/dL POC Glu Configuration Developer ID Linda, Liya Plasma Lactic Acid Raymond (0.7-2.0) mmol/L Calcium 9.0 (8.4-10.2) mg/dL Magnesium 1.2 L (1.6-2.3) mg/dL Total Bilirubin 0.9 (0.2-1.3) mg/dL AST 20 (17-59) U/L ALT 13 (4-49) U/L Alkaline Phosphatase 104 (38-126) U/L Troponin I (0.000-0.034) ng/mL Total Protein 6.0 L (6.3-8.2) g/dL Albumin 3.8 (3.5-5.0) g/dL Acetone, Qual Negative (Negative) 03/31/19 03/31/19 03/31/19 Range/Units 22:09 22:09 22:09 WBC (3.8-10.6) k/uL RBC (4.30-5.90) m/uL Hgb (13.0-17.5) gm/dL Hct (39.0-53.0) % MCV (80.0-100.0) fL MCH (25.0-35.0) pg MCHC (31.0-37.0) g/dL RDW (11.5-15.5) % Plt Count (150-450) k/uL Neutrophils % % Lymphocytes % % Monocytes % % Eosinophils % % Basophils % % Neutrophils # (1.3-7.7) k/uL Lymphocytes # (1.0-4.8) k/uL Monocytes # (0-1.0) k/uL Eosinophils # (0-0.7) k/uL Basophils # (0-0.2) k/uL PT 10.8 (9.0-12.0) sec INR 1.0 (<1.2) APTT 23.2 (22.0-30.0) sec VBG pH (7.31-7.41) VBG pCO2 (37-51) mmHg VBG HCO3 (24-28) mmol/L Sodium (137-145) mmol/L Potassium (3.5-5.1) mmol/L Chloride (98-107) mmol/L Carbon Dioxide (22-30) mmol/L Anion Gap mmol/L BUN (9-20) mg/dL Creatinine (0.66-1.25) mg/dL Est GFR (CKD-EPI)AfAm (>60 ml/min/1.73 sqM) Est GFR (CKD-EPI)NonAf (>60 ml/min/1.73 sqM) Glucose (74-99) mg/dL POC Glucose (mg/dL) (75-99) mg/dL POC Glu Configuration Developer ID Plasma Lactic Acid Raymond 1.8 (0.7-2.0) mmol/L Calcium (8.4-10.2) mg/dL Magnesium (1.6-2.3) mg/dL Total Bilirubin (0.2-1.3) mg/dL AST (17-59) U/L ALT (4-49) U/L Alkaline Phosphatase (38-126) U/L Troponin I 0.495 H* (0.000-0.034) ng/mL Total Protein (6.3-8.2) g/dL Albumin (3.5-5.0) g/dL Acetone, Qual (Negative) 03/31/19 Range/Units 22:09 WBC (3.8-10.6) k/uL RBC (4.30-5.90) m/uL Hgb (13.0-17.5) gm/dL Hct (39.0-53.0) % MCV (80.0-100.0) fL MCH (25.0-35.0) pg MCHC (31.0-37.0) g/dL RDW (11.5-15.5) % Plt Count (150-450) k/uL Neutrophils % % Lymphocytes % % Monocytes % % Eosinophils % % Basophils % % Neutrophils # (1.3-7.7) k/uL Lymphocytes # (1.0-4.8) k/uL Monocytes # (0-1.0) k/uL Eosinophils # (0-0.7) k/uL Basophils # (0-0.2) k/uL PT (9.0-12.0) sec INR (<1.2) APTT (22.0-30.0) sec VBG pH 7.45 H (7.31-7.41) VBG pCO2 44 (37-51) mmHg VBG HCO3 30 H (24-28) mmol/L Sodium (137-145) mmol/L Potassium (3.5-5.1) mmol/L Chloride (98-107) mmol/L Carbon Dioxide (22-30) mmol/L Anion Gap mmol/L BUN (9-20) mg/dL Creatinine (0.66-1.25) mg/dL Est GFR (CKD-EPI)AfAm (>60 ml/min/1.73 sqM) Est GFR (CKD-EPI)NonAf (>60 ml/min/1.73 sqM) Glucose (74-99) mg/dL POC Glucose (mg/dL) (75-99) mg/dL POC Glu Configuration Developer ID Plasma Lactic Acid Raymond (0.7-2.0) mmol/L Calcium (8.4-10.2) mg/dL Magnesium (1.6-2.3) mg/dL Total Bilirubin (0.2-1.3) mg/dL AST (17-59) U/L ALT (4-49) U/L Alkaline Phosphatase (38-126) U/L Troponin I (0.000-0.034) ng/mL Total Protein (6.3-8.2) g/dL Albumin (3.5-5.0) g/dL Acetone, Qual (Negative) - EKG Data EKG Comments: Ventricular rate 96, P interval 172, QTC 462. Normal sinus rhythm. Nonspecific ST abnormalities. Similar to previous EKG January 2019. Disposition Clinical Impression: Hypomagnesemia, Dehydration, Acute kidney injury, Urinary tract infection Disposition: ADMITTED IP TO THIS HOSP Condition: Good Is patient prescribed a controlled substance at d/c from ED?: No Decision Date: 03/31/19 Decision Time: 23:13
[2019-03-31 22:27] LABS: ALT 13 U/L (4-49); AST 20 U/L (17-59); African American GFR (CKD) 28 (>60 ml/min/1.73 sqM); Albumin 3.8 g/dL (3.5-5.0); Alkaline Phosphatase 104 U/L (38-126); Anion Gap 9 mmol/L; Blood Urea Nitrogen 48 mg/dL (9-20); Carbon Dioxide 32 mmol/L (22-30); Chloride 96 mmol/L (98-107); Glucose 170 mg/dL (74-99); Magnesium 1.2 mg/dL (1.6-2.3); Non-African American GFR(CKD) 25 (>60 ml/min/1.73 sqM); Potassium 4.7 mmol/L (3.5-5.1); Sodium 137 mmol/L (137-145); Total Bilirubin 0.9 mg/dL (0.2-1.3)
[2019-03-31 22:28] LABS: VBG PH 7.45 (7.31-7.41)
[2019-03-31 22:38] LABS: Basophils % (A) 0 %; Eosinophils % (A) 0 %; HCT 37.9 % (39.0-53.0); HGB 11.7 gm/dL (13.0-17.5); Lymphocytes # (A) 0.6 k/uL (1.0-4.8); Lymphocytes % (A) 7 %; MCH 28.7 pg (25.0-35.0); MCHC 30.8 g/dL (31.0-37.0); MCV 93.2 fL (80.0-100.0); Mean Platelet Volume 9.1; Monocytes # (A) 0.7 k/uL (0-1.0); Monocytes % (A) 8 %; Neutrophils % (A) 84 %; Platelet Count 193 k/uL (150-450); RBC 4.06 m/uL (4.30-5.90); RDW 13.8 % (11.5-15.5); WBC 9.5 k/uL (3.8-10.6)
[2019-03-31 22:43] LABS: Partial Thromboplastin Time 23.2 sec (22.0-30.0); Prothrombin Time 10.8 sec (9.0-12.0)
[2019-03-31] MEDS ORDERED: ACETAMINOPHEN TAB 325 MG TAB PO PRN (23:05)
[2019-03-31] MEDS ORDERED: NALOXONE 0.4 MG/ML 1 ML VIAL IV PRN (23:05)
[2019-03-31] MEDS ORDERED: ONDANSETRON 4 MG/2 ML VIAL IVP PRN (23:05)
[2019-03-31] MEDS ORDERED: MAGNESIUM SULFATE-D5W PMX 1 GM in DEXTROSE/WATER 1 100ML.BAG IVPB ONE (23:12)
[2019-03-31] MEDS ORDERED: SODIUM CHLORIDE 0.9% 1,000 ML IV SCH (23:15)
[2019-03-31 23:48] LABS: Appearance,Urine Turbid (Clear); Bacteria,Urine Few /hpf; Bilirubin,Urine Negative (Negative); Blood,Urine Moderate (Negative); Color,Urine Yellow; Glucose,Urine (UA) 3+ (Negative); Ketones,Urine 1+ (Negative); Leukocyte Esterase,Urine Large (Negative); Nitrite,Urine Negative (Negative); Protein,Urine 2+ (Negative); RBC,Urine 5 /hpf (0-5); Squamous Epithelial Cell,Urine 5 /hpf (0-4); Urobilinogen,Urine <2.0 mg/dL (<2.0); WBC,Urine >182 /hpf (0-5)
[2019-04-01] LABS: Specific Gravity,Urine 1.012 (1.001-1.035)
[2019-04-01 06:58] LABS: Glucose,Whole Blood 135 mg/dL (75-99)
[2019-04-01 08:06] VITALS: BP 164/92; PULSE 94; RESP 18; TEMP 98.2
[2019-04-01] MEDS ORDERED: PANTOPRAZOLE 40 MG/10 ML VIAL IV SCH (09:00)
[2019-04-01 11:06] LABS: Glucose,Whole Blood 260 mg/dL (75-99)
--- NOTE | 2019-04-01 17:27 | HP ---
HISTORY AND PHYSICAL COMBINATION HISTORY AND PHYSICAL AND DISCHARGE SUMMARY: DATE OF SERVICE: 04/01/2019 This 64-year-old gentleman with a past medical history of multiple medical problems was admitted with nausea, vomiting and diarrhea. The patient also had multiple electrolyte abnormalities and renal failure as well as UTI. The patient left the hospital AGAINST MEDICAL ADVICE before being seen. Please refer to ER notes and multiple staff notes for further information. The prognosis was extremely guarded throughout the hospital stay. FINAL DIAGNOSES: 1. Nausea, vomiting, diarrhea, dehydration. 2. Acute renal failure. 3. Urinary tract infection. 4. Hypomagnesemia. MMODL / IJN: [id number] /
== END 2019-04-01 11:56 | disposition left against medical advice (07) | DRG 699 ==
LOC: EC 19:23 → 6NMEDSUR 22:58
PROVIDERS: ADMIT Hospitalist; ATTEND Hospitalist
DX: T86.19 Other complication of kidney transplant (principal); N17.9 Acute kidney failure, unspecified; N39.0 Urinary tract infection, site not specified; E11.42 Type 2 diabetes mellitus with diabetic polyneuropathy; E11.319 Type 2 diabetes mellitus with unspecified diabetic retinopathy without macular edema; E11.43 Type 2 diabetes mellitus with diabetic autonomic (poly)neuropathy; E11.22 Type 2 diabetes mellitus with diabetic chronic kidney disease; N18.3 Chronic kidney disease, stage 3 (moderate); F01.50 Vascular dementia, unspecified severity, without behavioral disturbance, psychotic disturbance, mood disturbance, and anxiety; E86.0 Dehydration; E83.42 Hypomagnesemia; K31.84 Gastroparesis; I12.9 Hypertensive chronic kidney disease with stage 1 through stage 4 chronic kidney disease, or unspecified chronic kidney disease; I25.10 Atherosclerotic heart disease of native coronary artery without angina pectoris; E78.5 Hyperlipidemia, unspecified; K21.9 Gastro-esophageal reflux disease without esophagitis; E07.9 Disorder of thyroid, unspecified; R32 Unspecified urinary incontinence; F32.9 Major depressive disorder, single episode, unspecified; F17.200 Nicotine dependence, unspecified, uncomplicated; E11.65 Type 2 diabetes mellitus with hyperglycemia; I25.2 Old myocardial infarction; Z79.890 Hormone replacement therapy; Z79.4 Long term (current) use of insulin; Z79.899 Other long term (current) drug therapy; Z79.82 Long term (current) use of aspirin; Z79.02 Long term (current) use of antithrombotics/antiplatelets; Z86.73 Personal history of transient ischemic attack (TIA), and cerebral infarction without residual deficits; Z87.440 Personal history of urinary (tract) infections; Z85.828 Personal history of other malignant neoplasm of skin; Z95.5 Presence of coronary angioplasty implant and graft; Z98.890 Other specified postprocedural states; Z95.828 Presence of other vascular implants and grafts; Z81.8 Family history of other mental and behavioral disorders; Z83.3 Family history of diabetes mellitus; Z82.49 Family history of ischemic heart disease and other diseases of the circulatory system
CPT/HCPCS: 36415; 80053; 81001; 82009; 82803; 83605; 83735; 84484; 85025; 85610; 85730; 93005; 96361; 96365; 96366; 96367; 96375; 96376; 99285

== ENCOUNTER 2019-08-12 09:44 | Inpatient (IN) | payer OTHER, MEDICARE ==
[2019-08-12] MEDS ORDERED: SODIUM CHLORIDE 0.9% 500 ML 500 ML IV STA (10:16)
[2019-08-12] MEDS ORDERED: ACETAMINOPHEN TAB 500 MG TAB PO STA (10:16)
[2019-08-12] MEDS ORDERED: ONDANSETRON 4 MG/2 ML VIAL IVP STA (10:16)
--- NOTE | 2019-08-12 10:30 | ED ---
General Adult HPI - General Chief complaint: Fever Stated complaint: Nausea, vomiting fever, hypertensive Time Seen by Provider: 08/12/19 10:00 Source: patient, family, RN notes reviewed Mode of arrival: wheelchair Limitations: no limitations - History of Present Illness Initial comments: This a 64-year-old male with multiple comorbidities presents emergency Department today with chief complaint of fever. Patient states he did not fill over nighttime states that he felt warm so he took his temperature in which it was 101. Patient states he has some nausea and vomiting with no abdominal pain. Patient states he has no other complaints denies any URI symptoms including cough, runny nose, sore throat, headache, dizziness. Patient denies any diar nerissa no sick contacts. Patient denies any Tylenol. - Related Data Home Medications Medication Instructions Recorded Confirmed Sertraline [Zoloft] 100 mg PO HS 09/21/13 04/01/19 Levothyroxine Sodium [Synthroid] 50 mcg PO DAILY 03/13/17 04/01/19 Mycophenolate Sodium [Mycophenolic 720 mg PO BID 03/13/17 04/01/19 Acid] Tacrolimus [Prograf] 3 mg PO Q12H 12/17/17 04/01/19 Insulin Aspart [NovoLOG Flexpen] 8 unit SQ AC-BRKFST 01/17/18 04/01/19 Insulin Detemir [Levemir Flextouch] 20 units SQ BID 09/11/18 04/01/19 Metoprolol Tartrate [Lopressor] 25 mg PO BID 03/20/19 04/01/19 Insulin Aspart [NovoLOG Flexpen] 3 - 4 units SQ AC-BID 04/01/19 04/01/19 Metoclopramide HCl [Reglan] 5 mg PO HS 04/01/19 04/01/19 Omeprazole [PriLOSEC] 20 mg PO AC-BID 04/01/19 04/01/19 Previous Rx's Medication Instructions Recorded Aspirin 81 mg PO DAILY #30 chew 09/27/15 Atorvastatin [Lipitor] 80 mg PO HS #30 tab 09/27/15 Clopidogrel [Plavix] 75 mg PO DAILY 30 Days #30 tab 01/22/19 Sodium Bicarbonate Tab 650 mg PO BID 30 Days #60 tab 01/22/19 amLODIPine [Norvasc] 5 mg PO HS 30 Days #30 tab 01/22/19 hydrALAZINE HCL [Apresoline] 25 mg PO TID 30 Days #90 tab 01/22/19 Allergies Allergy/AdvReac Type Severity Reaction Status Date / Time No Known Allergies Allergy Verified 08/12/19 09:57 Review of Systems ROS Statement: Those systems with pertinent positive or pertinent negative responses have been documented in the HPI. ROS Other: All systems not noted in ROS Statement are negative. Past Medical History Past Medical History: Coronary Artery Disease (CAD), Cancer, Chest Pain / Angina, CVA/TIA, Dementia, Diabetes Mellitus, Dialysis, Eye Disorder, GERD/Reflux, Hearing Disorder / Deafness, Hyperlipidemia, Hypertension, Myocardial Infarction (AR), Renal Disease, Thyroid Disorder Additional Past Medical History / Comment(s): Pt recently admitted to [facility] on 03/20/19 with upper GI bleed/gastritis, mild acute renal failure on CKD, hypomagnesemia. Other hx: IDDM type I, neuropathy bilateral legs/feet, retinopathy bilaterally and is nearly blind, gastroparesis, ESRD with past hemo/peritoneal dialysis and in 2010 received kidney transplant, CKD stage II or III, recurrent UTIs, UTI with sepsis, does not completely empty bladder-self caths on occasion, incontinent of urine at times, TIAs, 2013 fall with multiple fractured ribs, vascular dementia per spouse, skin cancer with removal, past medical record notes CDiff 3 times in the past-and that spouse stated to be careful with antibiotic use. Last Myocardial Infarction Date:: 01/2019 History of Any Multi-Drug Resistant Organisms: C-DIFF Date of last positivie culture/infection: "years ago" MDRO Source:: stool Past Surgical History: Heart Catheterization, Heart Catheterization With Stent Additional Past Surgical History / Comment(s): 01/2019 cardiac cath tx medically, PCI with stents in 2012 and 2015, kidney transplant November 2010, patient has an AV fistula in the left upper extremity, colonoscopy, skin cancer removal , bilateral eye retinal bleeds with surgery, teeth extractions. Past Anesthesia/Blood Transfusion Reactions: No Reported Reaction Date of Last Stent Placement:: 09/2015 Past Psychological History: Depression Smoking Status: Former smoker Past Alcohol Use History: None Reported Past Drug Use History: None Reported - Past Family History Brother(s) Additional Family Medical History / Comment(s): Brother had depression and comitted suicide. Father Family Medical History: Diabetes Mellitus Additional Family Medical History / Comment(s): Father lived into his 90s. Mother Family Medical History: Myocardial Infarction (AR) Additional Family Medical History / Comment(s): Mother of a AR at the age of 57yrs. General Exam Limitations: no limitations General appearance: alert, in no apparent distress Head exam: Present: atraumatic, normocephalic, normal inspection Eye exam: Present: normal appearance, PERRL, EOMI. Absent: scleral icterus, conjunctival injection, periorbital swelling ENT exam: Present: normal exam, normal oropharynx, mucous membranes moist Neck exam: Present: normal inspection, full ROM. Absent: tenderness, meningismus, lymphadenopathy Respiratory exam: Present: wheezes, decreased breath sounds. Absent: normal lung sounds bilaterally, respiratory distress, rales, rhonchi, stridor Cardiovascular Exam: Present: regular rate, normal rhythm, normal heart sounds. Absent: systolic murmur, diastolic murmur, rubs, gallop, clicks GI/Abdominal exam: Present: soft, normal bowel sounds, other (Old surgical scars noted). Absent: distended, tenderness, guarding, rebound, rigid Neurological exam: Present: alert, oriented X3 Skin exam: Present: warm, dry, intact, normal color. Absent: rash Course Vital Signs 08/12/19 09:52 Temperature 100.1 F H Pulse Rate 91 Respiratory 18 Rate Blood Pressure 127/75 O2 Sat by Pulse 99 Oximetry Medical Decision Making - Medical Decision Making 64-year-old male presented for fever. Patient had labs, x-ray. Patient's found to have atelectasis versus pneumonia I do feel that this is most likely pneumonia at this time. Patient is immunocompromised was started on broad- spectrum antibiotics with cefepime and azithromycin. Patient's lab reviewed patient does have a catheterized. Patient will be admitted for gentle hydration, nausea control, antibiotics pending cultures. - Lab Data Result diagrams: 08/12/19 10:49 08/12/19 10:49 Lab Results 08/12/19 08/12/19 08/12/19 Range/Units 10:49 10:49 10:49 WBC 9.5 (3.8-10.6) k/uL RBC 4.05 L (4.30-5.90) m/uL Hgb 12.1 L (13.0-17.5) gm/dL Hct 37.6 L (39.0-53.0) % MCV 92.8 (80.0-100.0) fL MCH 29.9 (25.0-35.0) pg MCHC 32.2 (31.0-37.0) g/dL RDW 13.8 (11.5-15.5) % Plt Count 133 L (150-450) k/uL Neutrophils % 86 % Lymphocytes % 5 % Monocytes % 6 % Eosinophils % 1 % Basophils % 0 % Neutrophils # 8.2 H (1.3-7.7) k/uL Lymphocytes # 0.5 L (1.0-4.8) k/uL Monocytes # 0.6 (0-1.0) k/uL Eosinophils # 0.1 (0-0.7) k/uL Basophils # 0.0 (0-0.2) k/uL Hypochromasia Slight VBG pH (7.31-7.41) VBG pCO2 (37-51) mmHg VBG HCO3 (24-28) mmol/L Sodium 137 (137-145) mmol/L Potassium 4.1 (3.5-5.1) mmol/L Chloride 101 (98-107) mmol/L Carbon Dioxide 27 (22-30) mmol/L Anion Gap 9 mmol/L BUN 39 H (9-20) mg/dL Creatinine 2.75 H (0.66-1.25) mg/dL Est GFR (CKD-EPI)AfAm 27 (>60 ml/min/1.73 sqM) Est GFR (CKD-EPI)NonAf 24 (>60 ml/min/1.73 sqM) Glucose 178 H (74-99) mg/dL Plasma Lactic Acid Raymond 1.7 (0.7-2.0) mmol/L Calcium 8.7 (8.4-10.2) mg/dL Total Bilirubin 0.8 (0.2-1.3) mg/dL AST 12 L (17-59) U/L ALT 11 (4-49) U/L Alkaline Phosphatase 106 (38-126) U/L Total Protein 6.0 L (6.3-8.2) g/dL Albumin 3.8 (3.5-5.0) g/dL Lipase 13 L (23-300) U/L 08/12/19 Range/Units 10:49 WBC (3.8-10.6) k/uL RBC (4.30-5.90) m/uL Hgb (13.0-17.5) gm/dL Hct (39.0-53.0) % MCV (80.0-100.0) fL MCH (25.0-35.0) pg MCHC (31.0-37.0) g/dL RDW (11.5-15.5) % Plt Count (150-450) k/uL Neutrophils % % Lymphocytes % % Monocytes % % Eosinophils % % Basophils % % Neutrophils # (1.3-7.7) k/uL Lymphocytes # (1.0-4.8) k/uL Monocytes # (0-1.0) k/uL Eosinophils # (0-0.7) k/uL Basophils # (0-0.2) k/uL Hypochromasia VBG pH 7.37 (7.31-7.41) VBG pCO2 49 (37-51) mmHg VBG HCO3 28 (24-28) mmol/L Sodium (137-145) mmol/L Potassium (3.5-5.1) mmol/L Chloride (98-107) mmol/L Carbon Dioxide (22-30) mmol/L Anion Gap mmol/L BUN (9-20) mg/dL Creatinine (0.66-1.25) mg/dL Est GFR (CKD-EPI)AfAm (>60 ml/min/1.73 sqM) Est GFR (CKD-EPI)NonAf (>60 ml/min/1.73 sqM) Glucose (74-99) mg/dL Plasma Lactic Acid Raymond (0.7-2.0) mmol/L Calcium (8.4-10.2) mg/dL Total Bilirubin (0.2-1.3) mg/dL AST (17-59) U/L ALT (4-49) U/L Alkaline Phosphatase (38-126) U/L Total Protein (6.3-8.2) g/dL Albumin (3.5-5.0) g/dL Lipase (23-300) U/L Disposition Clinical Impression: Diabetes, CKD (chronic kidney disease), History of renal transplant, Acute kidney injury, Pneumonia Disposition: ADMITTED IP TO THIS HOSP Condition: Fair Referrals: [facility],Clinic [Primary Care Provider] - 1-2 days
[2019-08-12 11:01] LABS: VBG PH 7.37 (7.31-7.41)
[2019-08-12 11:20] LABS: ALT 11 U/L (4-49); AST 12 U/L (17-59); African American GFR (CKD) 27 (>60 ml/min/1.73 sqM); Albumin 3.8 g/dL (3.5-5.0); Alkaline Phosphatase 106 U/L (38-126); Anion Gap 9 mmol/L; Blood Urea Nitrogen 39 mg/dL (9-20); Calcium 8.7 mg/dL (8.4-10.2); Carbon Dioxide 27 mmol/L (22-30); Chloride 101 mmol/L (98-107); Glucose 178 mg/dL (74-99); Non-African American GFR(CKD) 24 (>60 ml/min/1.73 sqM); Potassium 4.1 mmol/L (3.5-5.1); Sodium 137 mmol/L (137-145); Total Bilirubin 0.8 mg/dL (0.2-1.3)
--- NOTE | 2019-08-12 11:26 | XR ---
EXAMINATION TYPE: XR chest 2V DATE OF EXAM: 08/12/2019 COMPARISON: Chest x-ray March 20, 2019. HISTORY: Fever. TECHNIQUE: Frontal and lateral views of the chest are obtained. FINDINGS: There is chronic right unchanged bilaterally and patchy left basilar opacity confirmed on 2 views. Right lung is clear. No pleural effusion or pneumothorax is seen bilaterally. The cardiac si lhouette size is stable and mildly enlarged with atherosclerotic aorta. The osseous structures are intact. IMPRESSION: Mild cardiomegaly and chronic parenchymal changes with new patchy left basilar acute inf iltrate and/or atelectasis on current study.
[2019-08-12 11:41] LABS: Basophils % (A) 0 %; Eosinophils # (A) 0.1 k/uL (0-0.7); Eosinophils % (A) 1 %; HCT 37.6 % (39.0-53.0); HGB 12.1 gm/dL (13.0-17.5); Hypochromasia Slight; Lymphocytes # (A) 0.5 k/uL (1.0-4.8); Lymphocytes % (A) 5 %; MCH 29.9 pg (25.0-35.0); MCHC 32.2 g/dL (31.0-37.0); MCV 92.8 fL (80.0-100.0); Mean Platelet Volume 9.1; Monocytes # (A) 0.6 k/uL (0-1.0); Monocytes % (A) 6 %; Neutrophils # (A) 8.2 k/uL (1.3-7.7); Neutrophils % (A) 86 %; Platelet Count 133 k/uL (150-450); RBC 4.05 m/uL (4.30-5.90); RDW 13.8 % (11.5-15.5); WBC 9.5 k/uL (3.8-10.6)
[2019-08-12] MEDS ORDERED: CEFEPIME 2 GM in SODIUM CHLORIDE 0.9% 100 ML IVPB STA (12:22)
[2019-08-12] MEDS ORDERED: AZITHROMYCIN 500 MG in SODIUM CHLORIDE 0.9% 250 ML IVPB STA (12:23)
[2019-08-12] MEDS ORDERED: PNEUMONIA PROTOCOL UTILIZED 1 EACH MISC PO PRN (12:25)
[2019-08-12] MEDS ORDERED: ONDANSETRON ODT 4 MG TAB PO PRN (20:15)
[2019-08-12] MEDS ORDERED: ALBUTEROL NEBULIZED 2.5 MG/3 ML INHALATION PRN (20:15)
[2019-08-12] MEDS ORDERED: MYCOPHENOLATE SODIUM DR 180 MG TABLET.DR PO SCH (21:00)
[2019-08-12] MEDS: ATORVASTATIN 80 MG TAB PO SCH (21:45)
[2019-08-12] MEDS: amLODIPine 5 MG TAB PO SCH (21:45)
[2019-08-12] MEDS: METOPROLOL TARTRATE 25 MG TAB PO SCH (21:45)
[2019-08-12] MEDS: SODIUM BICARBONATE TAB 650 MG TAB PO SCH (21:45)
[2019-08-12] MEDS: PANTOPRAZOLE 40 MG TABLET PO SCH (21:45)
[2019-08-12] MEDS: TACROLIMUS 1 MG CAP PO SCH (21:46)
--- NOTE | 2019-08-12 21:56 | HP ---
HISTORY AND PHYSICAL DATE OF SERVICE: 08/12/2019 CHIEF COMPLAINTS: Nausea, vomiting, diarrhea as well as fever. HISTORY OF PRESENT ILLNESS: This 64-year-old gentleman with a past medical history of CAD, CVA, TIA, dementia, history of diabetes mellitus, type 2, history of hemodialysis, history of chronic renal failure, hypertension, history of myocardial infarction, history of chronic kidney disease and end-stage renal disease and kidney transplant, being followed by Dr. Quispe in the outpatient setting, was recently admitted to [facility] with complaints of upper GI bleeding, gastritis, mild renal failure. Currently the patient is complaining nausea, vomiting, diarrhea. Patient has some cough also. The patient is also suspected to have left lower pneumonia with sepsis. The patient was admitted for further evaluation and treatment. There is no history of any headache, loss of consciousness, chest pain, palpitation. The patient also has a history of CAD previously. PAST MEDICAL HISTORY: History of CAD, chronic renal failure, on hemodialysis and renal transplant, dementia, diabetes mellitus, type 2, hypertension, hyperlipidemia, myocardial infarction. MEDICATIONS: Medications prior to admission include: 1. Zoloft 100 mg p.o. daily. 2. Ventolin HFA 1-2 puffs q.6 p.r.n. 3. Zofran 4 mg q.8 p.r.n. 4. Lipitor 80 mg at bedtime. 5. Protonix 40 mg p.o. b.i.d. 6. Synthroid 50 mcg p.o. daily. 7. Prograf 3 mg p.o. b.i.d. 8. Sodium bicarb 650 mg b.i.d. 9. Mycophenolic acid 720 mg p.o. b.i.d. 10.NovoLog FlexPen 3-4 units before meals b.i.d. 11.NovoLog 8 units before breakfast. 12.Plavix 75 mg p.o. daily. 13.Apresoline 25 mg p.o. t.i.d. 14.Norvasc 5 mg p.o. at bedtime. 15.Lopressor 25 mg p.o. b.i.d. 16.Aspirin 81 mg p.o. daily. ALLERGIES: NONE. FAMILY HISTORY: History of myocardial infarction in the family. SOCIAL HISTORY: Previous history of smoking. No current smoking or alcohol intake. REVIEW OF SYSTEMS: ENT: No diminished hearing. No diminished vision. CARDIOVASCULAR SYSTEM: As mentioned earlier. RESPIRATORY SYSTEM: As mentioned earlier. GI: As mentioned earlier. : As mentioned earlier. NERVOUS SYSTEM: No numbness. Generalized weakness. ALLERGY/IMMUNOLOGY: No asthma, hayfever. MUSCULOSKELETAL: As mentioned earlier. HEMATOLOGY/ONCOLOGY: As mentioned earlier. ENDOCRINE: Hypothyroidism and diabetes mellitus. CONSTITUTIONAL: As mentioned earlier. DERMATOLOGY: Negative. RHEUMATOLOGY: Negative. PSYCHIATRY: As mentioned earlier. PHYSICAL EXAMINATION: Patient alert and oriented x3. Pulse 86, blood pressure 139/78, respirations 16, temperature 98.3, T-max 100.1, pulse ox 100% on room air. HEENT: Conjunctivae normal. Oral mucosa moist. NECK: No jugular venous distention. No carotid bruit. No lymph node enlargement. CARDIOVASCULAR SYSTEM: S1, S2 muffled. RESPIRATORY SYSTEM: Breath sounds diminished at the bases. A few scattered rhonchi and crackles. ABDOMEN: Soft, non-tender. Obese. No mass palpable. No guarding or rigidity. LEGS: No edema. No swelling. NERVOUS SYSTEM: Higher functions as mentioned earlier. Moves all 4 limbs. No focal motor or sensory deficit. LYMPHATICS: No lymph node palpable in neck, axillae or groin. SKIN: No ulcer, rash, bleeding. JOINTS: No active deforming arthropathy. LABS: WBC 9.5, hemoglobin 12.1 and platelets 133. Creatinine is 2.75. ASSESSMENT: 1. Acute sepsis with possible left lower pneumonia, possibly Gram-negative, present on admission. 2. Nausea, vomiting and diarrhea; possible acute gastroenteritis. 3. Thrombocytopenia. 4. Anemia, normocytic anemia of chronic disease and chronic kidney disease. 5. Chronic kidney disease, stage 3. 6. History of renal transplantation for end-stage renal disease, on hemodialysis. 7. History of coronary artery disease. 8. History of cerebrovascular accident, transient ischemic attack. 9. History of dementia. 10.Diabetes mellitus, type 2. 11.History of gastroesophageal reflux disease. 12.History of hypertension. 13.Hyperlipidemia. 14.History of myocardial infarction. 15.History of hypomagnesemia. 16.History of gastrointestinal bleed. 17.History of gastroparesis. 18.History of urinary tract infection with sepsis. 19.History of transient ischemic attacks. 20.History of Clostridium difficile x3. 21.History of kidney transplantation and AV fistula. 22.History of depression. 23.Remote history of nicotine dependence. RECOMMENDATIONS AND DISCUSSION: In this 64-year-old gentleman who presented with multiple complex medical issues, we will monitor the patient closely, initiate broad-spectrum IV antibiotics. Otherwise, I would also recommend cultures. Symptomatic treatment. Infectious disease evaluation. Nephrology evaluation in progress. Resume the home medications. Prognosis guarded because of multiple complex medical issues. Further recommendations to follow. MMODL / IJN: [id number] /
[2019-08-13 00:09] LABS: Appearance,Urine Turbid (Clear); Bacteria,Urine Occasional /hpf; Bilirubin,Urine Negative (Negative); Blood,Urine Moderate (Negative); Color,Urine Yellow; Glucose,Urine (UA) 2+ (Negative); Ketones,Urine Negative (Negative); Leukocyte Esterase,Urine Large (Negative); Nitrite,Urine Positive (Negative); PH, Urine 6.5 (5.0-8.0); Protein,Urine 2+ (Negative); RBC,Urine 6 /hpf (0-5); Specific Gravity,Urine 1.017 (1.001-1.035); Urobilinogen,Urine <2.0 mg/dL (<2.0); WBC,Urine >182 /hpf (0-5)
[2019-08-13] MEDS: CEFEPIME 2 GM in SODIUM CHLORIDE 0.9% 100 ML IVPB SCH ×3 (03:01→14:22)
[2019-08-13] MEDS: hydrALAZINE HCL 25 MG TAB PO SCH ×4 (03:01→23:53)
[2019-08-13 07:26] LABS: Glucose,Whole Blood 222 mg/dL (75-99)
[2019-08-13] MEDS: LEVOTHYROXINE 50 MCG TAB PO SCH (07:41)
[2019-08-13] MEDS: INSULIN ASPART (NovoLOG) 100 UNIT/ML VIAL SQ SCH ×5 (07:43→21:48)
[2019-08-13 07:53] LABS: Basophils % (A) 0 %; Eosinophils # (A) 0.2 k/uL (0-0.7); Eosinophils % (A) 3 %; HCT 39.5 % (39.0-53.0); HGB 11.9 gm/dL (13.0-17.5); Hypochromasia Moderate; Lymphocytes # (A) 0.9 k/uL (1.0-4.8); Lymphocytes % (A) 12 %; MCH 28.7 pg (25.0-35.0); MCHC 30.1 g/dL (31.0-37.0); MCV 95.2 fL (80.0-100.0); Monocytes # (A) 0.5 k/uL (0-1.0); Monocytes % (A) 7 %; Neutrophils # (A) 5.5 k/uL (1.3-7.7); Neutrophils % (A) 75 %; Platelet Count 126 k/uL (150-450); RBC 4.15 m/uL (4.30-5.90); RDW 14.1 % (11.5-15.5); WBC 7.4 k/uL (3.8-10.6)
[2019-08-13 07:59] LABS: Calcium 8.4 mg/dL (8.4-10.2); Potassium 4.5 mmol/L (3.5-5.1)
[2019-08-13] MEDS: ASPIRIN 81 MG PO SCH ×2 (08:35→08:38)
[2019-08-13] MEDS: PANTOPRAZOLE 40 MG TABLET PO SCH ×2 (08:35→16:52)
[2019-08-13] MEDS: SERTRALINE 100 MG TAB PO SCH (08:35)
[2019-08-13] MEDS: TACROLIMUS 1 MG CAP PO SCH ×2 (08:36→21:49)
[2019-08-13] MEDS: SODIUM BICARBONATE TAB 650 MG TAB PO SCH ×2 (08:36→21:49)
[2019-08-13] MEDS: CLOPIDOGREL 75 MG TAB PO SCH (08:36)
[2019-08-13] MEDS: METOPROLOL TARTRATE 25 MG TAB PO SCH ×2 (08:36→21:49)
--- NOTE | 2019-08-13 09:29 | XR ---
EXAMINATION TYPE: XR chest 1V DATE OF EXAM: 08/13/2019 COMPARISON: 08/12/2019 HISTORY: cough TECHNIQUE: Single frontal view of the chest is obtained. FINDINGS: There is chronic right unchanged bilaterally and patchy left basilar opacity. Right lung i s clear. No pleural effusion or pneumothorax is seen bilaterally. The cardiac silhouette size is stab le and mildly enlarged with atherosclerotic aorta. The osseous structures are intact. Hyperinflatio n suggests COPD IMPRESSION: Mild cardiomegaly and chronic parenchymal changes with new patchy left basilar acute inf iltrate and/or atelectasis
[2019-08-13 12:13] LABS: Glucose,Whole Blood 394 mg/dL (75-99)
[2019-08-13 16:46] LABS: Glucose,Whole Blood 410 mg/dL (75-99)
--- NOTE | 2019-08-13 17:34 | PN ---
PROGRESS NOTE DATE OF SERVICE: 08/13/2019 This 64-year-old gentleman was admitted with sepsis and possibly left lower pneumonia, possibly Gram-negative. The patient is immunocompromised. Patient also had possible UTI. Nephrology is following the patient. The patient also had acute on chronic renal failure. The patient had a renal transplant previously. The patient had GI symptoms on presentation yesterday. Past medical history reviewed. REVIEW OF SYSTEMS: CARDIOVASCULAR SYSTEM: No angina, palpitations. RESPIRATORY SYSTEM: As mentioned earlier. GI: As mentioned earlier. : As mentioned earlier. NERVOUS SYSTEM: Diffusely weak. CURRENT MEDICATIONS: Reviewed. They include: 1. Ventolin p.r.n. 2. Norvasc 5 mg at bedtime. 3. Aspirin 81 mg daily. 4. Lipitor 80 mg at bedtime. 5. Cefepime 2 grams IV q.8. 6. Plavix 70 mg daily. 7. Apresoline 25 mg t.i.d. 8. NovoLog scale. 9. Synthroid 50 mcg p.o. daily. 10.Lopressor. 11.Zofran. 12.Protonix. 13.Zoloft. 14.Sodium bicarb. 15.Prograf. PHYSICAL EXAMINATION: Patient alert, oriented x2. Pulse 74, blood pressure 143/84, respiration 18, temperature 98 degrees, pulse ox 97% on room air. HEENT: Conjunctivae normal. Oral mucosa dry. NECK: No jugular venous distention. No carotid bruit. No lymph node enlargement. CARDIOVASCULAR SYSTEM: S1, S2 muffled. RESPIRATORY SYSTEM: Breath sounds diminished at the bases. No rhonchi. No crackles. ABDOMEN: Soft, non-tender. No mass palpable. LEGS: No edema. No swelling. NERVOUS SYSTEM: Diffusely weak. LABS: WBC 7.4, hemoglobin 11.1. Sodium is 126. Creatinine is 2.48. Glucose is 394. ASSESSMENT: 1. Acute sepsis with possible left lower pneumonia, possibly Gram-negative, present on admission, possible acute urinary tract infection with sepsis. 2. Nausea and vomiting and diarrhea; possibly acute gastroenteritis. 3. Thrombocytopenia. 4. Anemia, normocytic anemia of chronic kidney disease and chronic kidney disease. 5. Acute renal failure with acute tubular necrosis. 6. Chronic kidney disease, stage 3 baseline. 7. History of renal transplant. 8. End-stage renal disease, on hemodialysis. 9. History of coronary artery disease. 10.History of cerebrovascular accident, transient ischemic attack. 11.History of dementia. 12.Diabetes mellitus, type 2. 13.Change in mental status, metabolic encephalopathy, acute on chronic. 14.History of gastroesophageal reflux disease. 15.Hypertension. 16.Hyperlipidemia. 17.History of myocardial infarction. 18.History of hypomagnesemia. 19.History of gastrointestinal bleed. 20.History of gastroparesis. 21.Urinary tract infection with sepsis. 22.History of transient ischemic attack. 23.History of Clostridium difficile x3. 24.History of kidney transplantation, AV fistula. 25.History of depression. 26.Remote history of nicotine dependence. RECOMMENDATIONS AND DISCUSSION: I recommend to continue current medications, continue with the monitoring, symptomatic treatment. I would also recommend infectious disease evaluation and antibiotic. Nephrology input appreciated. Continue with IV fluids. Prognosis guarded because of multiple complex medical issues. Further recommendations to follow. MMODL / IJN: [id number] /
--- NOTE | 2019-08-13 18:02 | P.NPCON ---
History of Present Illness - Reason for Consult chronic renal failure - History of Present Illness Reason for consultation: Chronic kidney disease and renal transplant management History of present illness: Patient is a 64-year-old male seen in renal consultation for chronic kidney disease and renal transfer management. Patient received a donor renal allograft in November 2010. He is maintained on Myfortic as well as Prograf outpatient. Patient's baseline creatinine is in the range of 2.3-2.5. GFR is currently near baseline. Patient presented to the hospital with fever. Patient states his temperature was 101.2F at home. Patient states he had multiple episodes of vomiting yesterday but is feeling much better today. He denies abdominal pain. No diarrhea. His oral intake is good. Cultures negative so far. Denies significant cough. He has been voiding. No hematuria or dysuria. COVID-19 PCR negative. UA suggestive of UTI. He is receiving IV antibiotics. Hemodynamically stable. No evidence of hypotension. Chest x-ray suggestive of possible infiltrate. No edema. No dizziness. No other complaints at this time. Vital signs are stable. General: The patient appeared well nourished and normally developed. HEENT: Head exam is unremarkable. Neck is without jugular venous distension. LUNGS: Lungs are clear to auscultation and percussion. Breath sounds decreased. HEART: Rate and Rhythm are regular. ABDOMEN: Soft, nontender. EXTREMITITES: No clubbing, cyanosis, or edema. Past Medical History Past Medical History: Coronary Artery Disease (CAD), Cancer, Chest Pain / Angina, CVA/TIA, Dementia, Diabetes Mellitus, Dialysis, Eye Disorder, GERD/Reflux, GI Bleed, Hearing Disorder / Deafness, Hyperlipidemia, Hypertension, Myocardial Infarction ([place]), Pneumonia, Renal Disease, Thyroid Disorder Additional Past Medical History / Comment(s): IDDM type I, neuropathy bilateral legs/feet, retinopathy bilaterally and is nearly blind, gastroparesis, ESRD with past hemo/peritoneal dialysis and in 2010 received kidney transplant, CKD stage II or III, recurrent UTIs, UTI with sepsis, does not completely empty bladder- self caths on occasion, incontinent of urine at times, TIAs, 2014 fall with multiple fractured ribs, vascular dementia, skin cancer with removal, upper GI bleed, hypomagnesemia, past medical record notes CDiff 3 times in the past Last Myocardial Infarction Date:: 01/2019 History of Any Multi-Drug Resistant Organisms: C-DIFF Date of last positivie culture/infection: "years ago" MDRO Source:: stool Past Surgical History: Heart Catheterization, Heart Catheterization With Stent Additional Past Surgical History / Comment(s): 01/2019 cardiac cath tx medically, PCI with stents in 2012 and 2015, kidney transplant November 2010, patient has an AV fistula in the left upper extremity, colonoscopy, skin cancer removal , bilateral eye retinal bleeds with surgery, teeth extractions. Past Anesthesia/Blood Transfusion Reactions: No Reported Reaction Date of Last Stent Placement:: 09/2015 Smoking Status: Former smoker - Past Family History Brother(s) Additional Family Medical History / Comment(s): Brother had depression and comitted suicide. Father Family Medical History: Diabetes Mellitus Additional Family Medical History / Comment(s): Father lived into his 90s. Mother Family Medical History: Myocardial Infarction ([place]) Additional Family Medical History / Comment(s): Mother of a [place] at the age of 57yrs. Medications and Allergies Home Medications Medication Instructions Recorded Confirmed Type Aspirin 81 mg PO DAILY #30 chew 09/27/15 08/12/19 Rx Atorvastatin [Lipitor] 80 mg PO HS #30 tab 09/27/15 08/12/19 Rx Levothyroxine Sodium [Synthroid] 50 mcg PO DAILY 03/13/17 08/12/19 History Mycophenolate Sodium [Mycophenolic 720 mg PO BID 03/13/17 08/12/19 History Acid] Tacrolimus [Prograf] 3 mg PO Q12H 12/17/17 08/12/19 History Insulin Aspart [NovoLOG Flexpen] 8 unit SQ AC-BRKFST 01/17/18 08/12/19 History Clopidogrel [Plavix] 75 mg PO DAILY 30 Days #30 tab 01/22/19 08/12/19 Rx Sodium Bicarbonate Tab 650 mg PO BID 30 Days #60 tab 01/22/19 08/12/19 Rx amLODIPine [Norvasc] 5 mg PO HS 30 Days #30 tab 01/22/19 08/12/19 Rx hydrALAZINE HCL [Apresoline] 25 mg PO TID 30 Days #90 tab 01/22/19 08/12/19 Rx Metoprolol Tartrate [Lopressor] 25 mg PO BID 03/20/19 08/12/19 History Insulin Aspart [NovoLOG Flexpen] 3 - 4 units SQ AC-BID 04/01/19 08/12/19 History Albuterol Inhaler [Ventolin Hfa 1 - 2 puff INHALATION RT-Q6H PRN 08/12/19 08/12/19 History Inhaler] Ondansetron Odt [Zofran ODT] 4 mg PO Q8H PRN 08/12/19 08/12/19 History Pantoprazole Sodium [Protonix] 40 mg PO BID 08/12/19 08/12/19 History Sertraline HCl [Zoloft] 100 mg PO DAILY 08/12/19 08/12/19 History Allergies Allergy/AdvReac Type Severity Reaction Status Date / Time No Known Allergies Allergy Verified 08/12/19 09:57 Physical Exam Vitals: Vital Signs Temp Pulse Pulse Resp BP BP Pulse Ox 08/13/19 15:00 98.1 F 61 17 168/77 98 08/13/19 14:23 98.1 F 61 16 152/77 99 08/13/19 07:26 98 F 74 18 143/84 97 08/13/19 02:58 97.7 F 67 16 153/88 98 08/12/19 21:49 89 16 147/83 97 08/12/19 18:07 86 16 139/78 100 Intake and Output 08/13/19 08/13/19 08/13/19 06:59 14:59 22:59 Other: Weight 65.771 kg Results - Lab Results Most recent lab results Calcium 8.4 mg/dL (8.4-10.2) 08/13/19 07:30 08/13/19 07:30 08/13/19 07:30 Assessment and Plan Plan: Assessment: 1. Status post donor renal allograft in November 2026. 2. Chronic kidney disease stage IIIB with baseline creatinine in the range of 2.3-2.5. Etiology is diabetic kidney disease as well as long-term calcineurin inhibitor use. 3. Fever. Possibly due to UTI as well as concern for pneumonia. He is maintained on IV antibiotics. COVID PCR negative. Infectious disease consulted. 4. Hypertension with chronic kidney disease. 5. Insulin-dependent diabetes mellitus. Plan: Hold Myfortic due to concern for sepsis. Maintain Prograf. Check Prograf level in the morning. Avoid nephrotoxins. Follow-up cultures. Continue to monitor renal function and urine output. Thank you for the consultation. I will continue to follow the patient with you during his hospital stay.
[2019-08-13 21:36] LABS: Glucose,Whole Blood 227 mg/dL (75-99)
[2019-08-13] MEDS: ATORVASTATIN 80 MG TAB PO SCH (21:48)
[2019-08-13] MEDS: amLODIPine 5 MG TAB PO SCH (21:48)
[2019-08-14 02:01] LABS: Hemoglobin A1C 9.8 % (4.0-6.0)
[2019-08-14] MEDS: LEVOTHYROXINE 50 MCG TAB PO SCH (05:57)
--- NOTE | 2019-08-14 07:26 | P.CONS ---
History of Present Illness - Reason for Consult Consult date: 08/13/19 Fever and UTI Requesting physician: Nate Forde - Chief Complaint Fever 1 day - History of Present Illness Patient is 64-year-old male with a past medical history significant for end-stage renal disease in this patient who is status post diseased donor renal allograft in 2010 and has been maintained on immunosuppressive medication patient presenting to the hospital with a chief complaints of fever on one day duration in addition to feeling nauseated and did have an episode of vomiting, patient denies having any abdominal pain that he did have some diarrhea but he denied that to me patient had denies having any headache or URI symptoms denies having any chest pain or shortness breath very minimal cough and sputum production denies significant burning or frequency of urine or any pain at his transplant kidney site patient has been evaluated by the physician on around. The patient did have fever 100.1 patient did have a normal white count did have mild lymphopenia his creatinine has been 2.35 patient did have a positive UA and a chest x-ray today shows acute left lower lobe infiltrate patient has been started on cefepime has been admitted to the hospital infectious disease was consulted for further management of antibiotic therapy at the time of evaluation this afternoon the patient mentions is already feeling better and wants to go home Review of Systems Positive point has been mentioned in the HPI rest of the systems are negative Past Medical History Past Medical History: Coronary Artery Disease (CAD), Cancer, Chest Pain / Angina, CVA/TIA, Dementia, Diabetes Mellitus, Dialysis, Eye Disorder, GERD/Reflux, GI Bleed, Hearing Disorder / Deafness, Hyperlipidemia, Hyper tension, Myocardial Infarction ([place]), Pneumonia, Renal Disease, Thyroid Disorder Additional Past Medical History / Comment(s): IDDM type I, neuropathy bilateral legs/feet, retinopathy bilaterally and is nearly blind, gastroparesis, ESRD with past hemo/peritoneal dialysis and in 2010 received kidney transplant, CKD stage II or III, recurrent UTIs, UTI with sepsis, does not completely empty bladder- self caths on occasion, incontinent of urine at times, TIAs, 2014 fall with multiple fractured ribs, vascular dementia, skin cancer with removal, upper GI bleed, hypomagnesemia, past medical record notes CDiff 3 times in the past Last Myocardial Infarction Date:: 01/2019 History of Any Multi-Drug Resistant Organisms: C-DIFF Year Discovered:: "years ago" MDRO Source:: stool Past Surgical History: Heart Catheterization, Heart Catheterization With Stent Additional Past Surgical History / Comment(s): 01/2019 cardiac cath tx medically, PCI with stents in 2012 and 2015, kidney transplant November 2010, patient has an AV fistula in the left upper extremity, colonoscopy, skin cancer removal , bilateral eye retinal bleeds with surgery, teeth extractions. Past Anesthesia/Blood Transfusion Reactions: No Reported Reaction Date of Last Stent Placement:: 09/2015 Smoking Status: Former smoker - Past Family History Brother(s) Additional Family Medical History / Comment(s): Brother had depression and comitted suicide. Father Family Medical History: Diabetes Mellitus Additional Family Medical History / Comment(s): Father lived into his 90s. Mother Family Medical History: Myocardial Infarction ([place]) Additional Family Medical History / Comment(s): Mother of a [place] at the age of 57yrs. Medications and Allergies Home Medications Medication Instructions Recorded Confirmed Type Aspirin 81 mg PO DAILY #30 chew 09/27/15 08/12/19 Rx Atorvastatin [Lipitor] 80 mg PO HS #30 tab 09/27/15 08/12/19 Rx Levothyroxine Sodium [Synthroid] 50 mcg PO DAILY 03/13/17 08/12/19 History Mycophenolate Sodium [Mycophenolic 720 mg PO BID 03/13/17 08/12/19 History Acid] Tacrolimus [Prograf] 3 mg PO Q12H 12/17/17 08/12/19 History Insulin Aspart [NovoLOG Flexpen] 8 unit SQ AC-BRKFST 01/17/18 08/12/19 History Clopidogrel [Plavix] 75 mg PO DAILY 30 Days #30 tab 01/22/19 08/12/19 Rx Sodium Bicarbonate Tab 650 mg PO BID 30 Days #60 tab 01/22/19 08/12/19 Rx amLODIPine [Norvasc] 5 mg PO HS 30 Days #30 tab 01/22/19 08/12/19 Rx hydrALAZINE HCL [Apresoline] 25 mg PO TID 30 Days #90 tab 01/22/19 08/12/19 Rx Metoprolol Tartrate [Lopressor] 25 mg PO BID 03/20/19 08/12/19 History Insulin Aspart [NovoLOG Flexpen] 3 - 4 units SQ AC-BID 04/01/19 08/12/19 History Albuterol Inhaler [Ventolin Hfa 1 - 2 puff INHALATION RT-Q6H PRN 08/12/19 08/12/19 History Inhaler] Ondansetron Odt [Zofran ODT] 4 mg PO Q8H PRN 08/12/19 08/12/19 History Pantoprazole Sodium [Protonix] 40 mg PO BID 08/12/19 08/12/19 History Sertraline HCl [Zoloft] 100 mg PO DAILY 08/12/19 08/12/19 History Allergies Allergy/AdvReac Type Severity Reaction Status Date / Time No Known Allergies Allergy Verified 08/12/19 09:57 Physical Exam Vitals: Vital Signs Temp Pulse Pulse Resp BP BP Pulse Ox 08/14/19 03:59 98.0 F 74 18 126/78 94 L 08/13/19 22:58 98.3 F 63 18 119/72 96 08/13/19 15:00 98.1 F 61 17 168/77 98 08/13/19 14:23 98.1 F 61 16 152/77 99 08/13/19 07:26 98 F 74 18 143/84 97 Intake and Output 08/13/19 08/14/19 08/14/19 22:59 06:59 14:59 Intake Total 60 Balance 60 Intake: Oral 60 Other: # Voids 1 1 GENERAL DESCRIPTION: Middle-aged male lying in bed, no distress. No tachypnea or accessory muscle of respiration use. HEENT: Shows Pallor , no scleral icterus. Oral mucous membrane is dry. No pharyngeal erythema or thrush NECK: Trachea central, no thyromegaly. LUNGS: Unlabored breathing. Clear to auscultation anteriorly. No wheeze or crackle. HEART: S1, S2, regular rate and rhythm. No loud murmur ABDOMEN: Soft, no tenderness , guarding or rigidity, no organomegaly EXTREMITIES: No edema of feet. SKIN: No rash, no masses palpable. NEUROLOGICAL: The patient is awake, alert, oriented x3, mood and affect normal. Results CBC & Chem 7: 08/13/19 07:30 08/13/19 07:30 Labs: Abnormal Lab Results - Last 24 Hours (Table) 08/12/19 08/13/19 08/13/19 Range/Units 10:49 07:22 07:30 RBC 4.15 L (4.30-5.90) m/uL Hgb 11.9 L (13.0-17.5) gm/dL MCHC 30.1 L (31.0-37.0) g/dL Plt Count 126 L (150-450) k/uL Lymphocytes # 0.9 L (1.0-4.8) k/uL BUN (9-20) mg/dL Creatinine (0.66-1.25) mg/dL Glucose (74-99) mg/dL POC Glucose (mg/dL) 222 H (75-99) mg/dL Hemoglobin A1c 9.8 H (4.0-6.0) % 08/13/19 08/13/19 08/13/19 Range/Units 07:30 12:12 16:45 RBC (4.30-5.90) m/uL Hgb (13.0-17.5) gm/dL MCHC (31.0-37.0) g/dL Plt Count (150-450) k/uL Lymphocytes # (1.0-4.8) k/uL BUN 39 H (9-20) mg/dL Creatinine 2.48 H (0.66-1.25) mg/dL Glucose 230 H (74-99) mg/dL POC Glucose (mg/dL) 394 H 410 H (75-99) mg/dL Hemoglobin A1c (4.0-6.0) % 08/13/19 Range/Units 21:35 RBC (4.30-5.90) m/uL Hgb (13.0-17.5) gm/dL MCHC (31.0-37.0) g/dL Plt Count (150-450) k/uL Lymphocytes # (1.0-4.8) k/uL BUN (9-20) mg/dL Creatinine (0.66-1.25) mg/dL Glucose (74-99) mg/dL POC Glucose (mg/dL) 227 H (75-99) mg/dL Hemoglobin A1c (4.0-6.0) % Microbiology - Last 24 Hours (Table) 08/13/19 17:43 Urine Culture - Preliminary Urine,Voided 08/12/19 10:49 Blood Culture - Preliminary Blood No Growth after 24 hours Assessment and Plan Assessment: 1- patient presented to hospital with fever and episode of vomiting this patient did have a positive UA with history of renal transplant I clinical suspicious for transplant nephritis, there are some atelectasis or infiltrate at the left lung base however the patient did have significant respiratory symptoms to be suspicious for pneumonia (1) History of renal transplant Current Visit: Yes Status: Acute Code(s): Z94.0 - KIDNEY TRANSPLANT STATUS SNOMED Code(s): 407118471 (2) Urinary tract infection Current Visit: No Status: Acute Code(s): N39.0 - URINARY TRACT INFECTION, SITE NOT SPECIFIED SNOMED Code(s): 08995071 Plan: 1- cefepime 2 g daily dose has been adjusted to the kidney function while waiti ng for the culture finalized 2- change IV fluid We will follow on clinical condition and cultures to further adjust medication if needed Thank you for this consultation will follow this patient with you Time with Patient: Greater than 30
[2019-08-14] MEDS: INSULIN ASPART (NovoLOG) 100 UNIT/ML VIAL SQ SCH ×7 (07:33→21:06)
[2019-08-14] MEDS: PANTOPRAZOLE 40 MG TABLET PO SCH (07:34)
[2019-08-14] MEDS: ASPIRIN 81 MG PO SCH (07:34)
[2019-08-14] MEDS: METOPROLOL TARTRATE 25 MG TAB PO SCH ×2 (07:34→21:05)
[2019-08-14] MEDS: CLOPIDOGREL 75 MG TAB PO SCH (07:34)
[2019-08-14] MEDS: SERTRALINE 100 MG TAB PO SCH (07:35)
[2019-08-14] MEDS: SODIUM BICARBONATE TAB 650 MG TAB PO SCH ×2 (07:35→21:05)
[2019-08-14] MEDS: TACROLIMUS 1 MG CAP PO SCH ×2 (07:35→21:06)
[2019-08-14] MEDS: hydrALAZINE HCL 25 MG TAB PO SCH ×3 (07:35→21:06)
[2019-08-14 07:37] LABS: Glucose,Whole Blood 386 mg/dL (75-99)
[2019-08-14 10:22] LABS: Basophils % (A) 0 %; Eosinophils # (A) 0.2 k/uL (0-0.7); Eosinophils % (A) 3 %; HCT 37.5 % (39.0-53.0); HGB 11.3 gm/dL (13.0-17.5); Hypochromasia Marked; Lymphocytes # (A) 0.7 k/uL (1.0-4.8); Lymphocytes % (A) 11 %; MCH 29.4 pg (25.0-35.0); MCV 97.7 fL (80.0-100.0); Mean Platelet Volume 9.4; Monocytes # (A) 0.3 k/uL (0-1.0); Monocytes % (A) 5 %; Neutrophils # (A) 5.2 k/uL (1.3-7.7); Neutrophils % (A) 80 %; Platelet Count 143 k/uL (150-450); RBC 3.84 m/uL (4.30-5.90); RDW 13.8 % (11.5-15.5); WBC 6.5 k/uL (3.8-10.6)
[2019-08-14 10:42] LABS: Calcium 8.1 mg/dL (8.4-10.2); Potassium 4.1 mmol/L (3.5-5.1)
--- NOTE | 2019-08-14 11:21 | P.PN ---
Subjective Patient is seen in follow-up for chronic kidney disease and renal transplant management. Patient received a donor renal allograft in November 2010. Baseline creatinine is in the range of 2.3-2.5. GFR is near baseline. He had 1 episode of vomiting this morning. No diarrhea. Oral intake fair. Vital signs are stable. General: The patient appeared well nourished and normally developed. HEENT: Head exam is unremarkable. Neck is without jugular venous distension. LUNGS: Lungs are clear to auscultation and percussion. Breath sounds decreased. HEART: Rate and Rhythm are regular. ABDOMEN: soft, nontender. EXTREMITITES: No clubbing, cyanosis, or edema. Objective - Vital Signs Vital signs: Vital Signs Temp 98.5 F 08/14/19 07:00 Pulse 72 08/14/19 07:00 Resp 16 08/14/19 07:00 BP 171/80 08/14/19 07:00 Pulse Ox 96 08/14/19 07:00 Intake & Output 08/13/19 08/14/19 08/14/19 18:59 06:59 18:59 Intake Total 60 Balance 60 Weight 65.771 kg Intake: Oral 60 Other: # Voids 1 # Emeses 1 - Labs CBC & Chem 7: 08/14/19 09:01 08/14/19 09:01 Labs: Abnormal Lab Results - Last 24 Hours (Table) 08/12/19 08/13/19 08/13/19 Range/Units 10:49 12:12 16:45 RBC (4.30-5.90) m/uL Hgb (13.0-17.5) gm/dL Hct (39.0-53.0) % MCHC (31.0-37.0) g/dL Plt Count (150-450) k/uL Lymphocytes # (1.0-4.8) k/uL Sodium (137-145) mmol/L BUN (9-20) mg/dL Creatinine (0.66-1.25) mg/dL Glucose (74-99) mg/dL POC Glucose (mg/dL) 394 H 410 H (75-99) mg/dL Hemoglobin A1c 9.8 H (4.0-6.0) % Calcium (8.4-10.2) mg/dL 08/13/19 08/14/19 08/14/19 Range/Units 21:35 07:31 09:01 RBC 3.84 L (4.30-5.90) m/uL Hgb 11.3 L (13.0-17.5) gm/dL Hct 37.5 L (39.0-53.0) % MCHC 30.0 L (31.0-37.0) g/dL Plt Count 143 L (150-450) k/uL Lymphocytes # 0.7 L (1.0-4.8) k/uL Sodium (137-145) mmol/L BUN (9-20) mg/dL Creatinine (0.66-1.25) mg/dL Glucose (74-99) mg/dL POC Glucose (mg/dL) 227 H 386 H (75-99) mg/dL Hemoglobin A1c (4.0-6.0) % Calcium (8.4-10.2) mg/dL 08/14/19 Range/Units 09:01 RBC (4.30-5.90) m/uL Hgb (13.0-17.5) gm/dL Hct (39.0-53.0) % MCHC (31.0-37.0) g/dL Plt Count (150-450) k/uL Lymphocytes # (1.0-4.8) k/uL Sodium 135 L (137-145) mmol/L BUN 39 H (9-20) mg/dL Creatinine 2.65 H (0.66-1.25) mg/dL Glucose 369 H (74-99) mg/dL POC Glucose (mg/dL) (75-99) mg/dL Hemoglobin A1c (4.0-6.0) % Calcium 8.1 L (8.4-10.2) mg/dL Microbiology - Last 24 Hours (Table) 08/13/19 17:43 Urine Culture - Preliminary Urine,Voided 08/12/19 10:49 Blood Culture - Preliminary Blood No Growth after 24 hours Assessment and Plan Plan: Assessment: 1. Status post donor renal allograft in November 2026. 2. Chronic kidney disease stage IIIB with baseline creatinine in the range of 2.3-2.5. Etiology is diabetic kidney disease as well as long-term calcineurin inhibitor use. 3. Fever. Possibly due to UTI as well as concern for pneumonia. He is maintained on IV antibiotics. COVID PCR negative. Infectious disease following. 4. Hypertension with chronic kidney disease. 5. Insulin-dependent diabetes mellitus. Plan: Hold Myfortic due to concern for sepsis. Maintain Prograf. Follow-up Prograf level. Avoid nephrotoxins. Follow-up cultures. Continue to monitor renal function and urine output.
[2019-08-14 11:23] LABS: Glucose,Whole Blood 321 mg/dL (75-99)
[2019-08-14] MEDS: SODIUM CHLORIDE 0.9% 1,000 ML IV SCH (12:01)
[2019-08-14 12:06] VITALS: BMI 21.4
[2019-08-14] MEDS: CEFEPIME 2 GM in SODIUM CHLORIDE 0.9% 100 ML IVPB SCH (14:08)
--- NOTE | 2019-08-14 14:55 | FL ---
EXAMINATION TYPE: FL barium swallow w video DATE OF EXAM: 08/14/2019 COMPARISON: NONE HISTORY: Aspiration, failed bedside TECHNIQUE: Fluoroscopy. FINDINGS: Fluoroscopic guidance was provided for the procedure performed in conjunction with the [facility] pathology department. Please see complete report forthcoming from the Speech Pathology departmen t. Various consistencies from thin liquid to solids were administered. Fluoroscopy time 1 minute 59 seconds. Number of images: 0. No aspiration or penetration was evident. No significant pooling was observed in the vallecula. There was normal propulsion of the bolus. IMPRESSION: 1. Unremarkable modified barium swallowing study.
[2019-08-14 17:26] LABS: Glucose,Whole Blood 408 mg/dL (75-99)
[2019-08-14 20:38] LABS: Glucose,Whole Blood 256 mg/dL (75-99)
[2019-08-14] MEDS: PANTOPRAZOLE 40 MG/10 ML VIAL IVP SCH (21:05)
[2019-08-14] MEDS: ATORVASTATIN 80 MG TAB PO SCH (21:06)
[2019-08-14] MEDS: amLODIPine 5 MG TAB PO SCH (21:06)
--- NOTE | 2019-08-15 02:06 | PN ---
PROGRESS NOTE DATE OF SERVICE: 08/14/2019 This 64-year-old gentleman who was admitted with acute sepsis and possible left lower pneumonia also has nausea, vomiting. The patient has been closely monitored. Patient also probable has acute gastroenteritis also. The patient is being closely monitored. A video fluoroscopic swallow was done which showed unremarkable finding. No chest pain. No palpitations. No fever. PHYSICAL EXAMINATION: On exam, alert and oriented x2. Pulse 61, blood pressure 108/60, respirations 16, temperature 98.8, pulse ox 97% on room air. HEENT: Conjunctivae normal. NECK: No jugular venous distention. CARDIOVASCULAR: S1, S2 muffled. RESPIRATORY: Breath sounds diminished at the bases. A few scattered rhonchi. ABDOMEN: Soft, nontender. No mass palpable. LEGS: No edema, no swelling. NERVOUS SYSTEM: No focal deficits. LABS: WBC 6.5, hemoglobin 11.3. Sodium 135, potassium 4.1, creatinine is 2.65. ASSESSMENT: 1. Acute sepsis with possible left lower pneumonia possibly gram-negative present on admission with possible acute urinary tract infection with sepsis. 2. Nausea, vomiting and diarrhea, possible acute gastroenteritis. 3. Thrombocytopenia. 4. Anemia, normocytic anemia of chronic disease and chronic kidney disease. 5. Acute renal failure with acute tubular necrosis. 6. Chronic kidney disease stage 3 baseline. 7. History of renal transplant. 8. History of renal disease on hemodialysis history. 9. History of coronary artery disease. 10.History of cerebrovascular accident, transient ischemic attack. 11.History of dementia. 12.Diabetes mellitus type 2. 13.Change in mental status, metabolic encephalopathy, acute on chronic. 14.History of gastroesophageal reflux disease. 15.Hypertension. 16.Hyperlipidemia. 17.History of myocardial infarction. 18.History of hypomagnesemia. 19.History of gastrointestinal bleed. 20.History of gastroparesis. 21.History of urinary tract infection with sepsis. 22.History of transient ischemic attack. 23.History of Clostridium difficile x3. 24.History of kidney transplantation AV fistula. 25.History of depression. 26.Remote history of nicotine dependence. RECOMMENDATIONS AND DISCUSSION: Recommend to continue current medications, continue with monitoring and symptomatic treatment. Otherwise at this time I recommend continue the antibiotics, monitor creatinine closely. Prognosis guarded because of multiple complex medical issues. Further recommendations to follow. MMODL / IJN: [id number] /
--- NOTE | 2019-08-15 03:01 | PN ---
PROGRESS NOTE DATE OF SERVICE: 08/14/2019 REASON FOR FOLLOWUP: Fever and urinary tract infection. INTERVAL HISTORY: Patient is currently afebrile. The patient is breathing comfortably. Did mention he did have one episode of vomiting this morning. No chest pain, shortness of breath or cough. No abdominal pain or diarrhea. PHYSICAL EXAMINATION: His blood pressure is 146/75 with a pulse of 66, temperature 99.2. He is 100% on room air. General description is a middle-aged male lying in bed in no distress. RESPIRATORY SYSTEM: Unlabored breathing, clear to auscultation anteriorly. HEART: S1, S2. Regular rate and rhythm. ABDOMEN: Soft, no tenderness. LABS: Hemoglobin 11.3, white count 6.5, creatinine is 2.65. DIAGNOSTIC IMPRESSION AND PLAN: Patient admitted to the hospital with fever and vomiting with concern for possible transplant nephritis. The patient is currently covered with cefepime to continue, adjusting further with the culture report. Continue supportive care. MMODL / IJN: [id number] /
[2019-08-15] MEDS: LEVOTHYROXINE 50 MCG TAB PO SCH (05:37)
[2019-08-15 07:49] LABS: Glucose,Whole Blood 474 mg/dL (75-99)
[2019-08-15] MEDS: INSULIN ASPART (NovoLOG) 100 UNIT/ML VIAL SQ SCH ×7 (08:50→21:18)
[2019-08-15] MEDS: SODIUM CHLORIDE 0.9% 1,000 ML IV SCH (08:51)
[2019-08-15] MEDS: ASPIRIN 81 MG PO SCH (08:51)
[2019-08-15] MEDS: PANTOPRAZOLE 40 MG/10 ML VIAL IVP SCH ×2 (08:51→21:16)
[2019-08-15] MEDS: CLOPIDOGREL 75 MG TAB PO SCH (08:52)
[2019-08-15] MEDS: TACROLIMUS 1 MG CAP PO SCH ×2 (08:52→21:17)
[2019-08-15] MEDS: SODIUM BICARBONATE TAB 650 MG TAB PO SCH ×2 (08:52→21:17)
[2019-08-15] MEDS: METOPROLOL TARTRATE 25 MG TAB PO SCH ×2 (08:52→21:17)
[2019-08-15] MEDS: SERTRALINE 100 MG TAB PO SCH (08:52)
[2019-08-15] MEDS: hydrALAZINE HCL 25 MG TAB PO SCH ×3 (08:52→21:17)
--- NOTE | 2019-08-15 10:49 | P.PN ---
Subjective Patient is seen in follow-up for chronic kidney disease and renal transplant management. Patient received a donor renal allograft in November 2010. Baseline creatinine is in the range of 2.3-2.5. GFR is near baseline. He vomited again this morning. No diarrhea. Oral intake fair. Vital signs are stable. General: The patient appeared well nourished and normally developed. HEENT: Head exam is unremarkable. Neck is without jugular venous distension. LUNGS: Lungs are clear to auscultation and percussion. Breath sounds decreased. HEART: Rate and Rhythm are regular. ABDOMEN: soft, nontender. EXTREMITITES: No clubbing, cyanosis, or edema. Objective - Vital Signs Vital signs: Vital Signs Temp 98.6 F 08/15/19 07:00 Pulse 71 08/15/19 07:00 Resp 20 08/15/19 07:00 BP 188/83 08/15/19 07:00 Pulse Ox 95 08/15/19 07:00 Intake & Output 08/14/19 08/15/19 08/15/19 18:59 06:59 18:59 Intake Total 200 840 Output Total 50 Balance 200 790 Weight 65.771 kg Intake: Intake, IV Titration 600 Amount Sodium Chloride 0.9% 1, 600 000 ml @ 50 mls/hr IV . Q20H [facility] Rx#:[id number] Oral 200 240 Output: Emesis 50 Other: # Voids 1 2 # Bowel Movements 1 # Emeses 1 1 - Labs CBC & Chem 7: 08/14/19 09:01 08/14/19 09:01 Labs: Abnormal Lab Results - Last 24 Hours (Table) 08/14/19 08/14/19 08/14/19 Range/Units 11:20 17:17 20:34 POC Glucose (mg/dL) 321 H 408 H 256 H (75-99) mg/dL 08/15/19 Range/Units 07:32 POC Glucose (mg/dL) 474 H (75-99) mg/dL Microbiology - Last 24 Hours (Table) 08/13/19 17:43 Urine Culture - Final Urine,Voided 08/12/19 10:49 Blood Culture - Preliminary Blood No Growth after 48 hours Assessment and Plan Plan: Assessment: 1. Status post donor renal allograft in November 2026. 2. Chronic kidney disease stage IIIB with baseline creatinine in the range of 2.3-2.5. Etiology is diabetic kidney disease as well as long-term calcineurin inhibitor use. 3. Fever. Possibly due to UTI as well as concern for pneumonia. He is maintained on IV antibiotics. COVID PCR negative. Infectious disease following. 4. Hypertension with chronic kidney disease. 5. Insulin-dependent diabetes mellitus. Plan: Hold Myfortic due to infection at this time. Maintain Prograf. Follow-up Prograf level. Avoid nephrotoxins. Follow-up cultures. Continue to monitor renal function and urine output.
[2019-08-15 11:37] LABS: Potassium 4.4 mmol/L (3.5-5.1)
[2019-08-15 11:47] LABS: Basophils % (A) 0 %; Eosinophils # (A) 0.1 k/uL (0-0.7); Eosinophils % (A) 1 %; HGB 11.4 gm/dL (13.0-17.5); Hypochromasia Marked; Lymphocytes # (A) 0.7 k/uL (1.0-4.8); Lymphocytes % (A) 12 %; MCH 28.9 pg (25.0-35.0); MCHC 29.9 g/dL (31.0-37.0); MCV 96.5 fL (80.0-100.0); Mean Platelet Volume 9.5; Monocytes # (A) 0.3 k/uL (0-1.0); Monocytes % (A) 4 %; Neutrophils # (A) 5.2 k/uL (1.3-7.7); Neutrophils % (A) 81 %; Platelet Count 145 k/uL (150-450); RBC 3.94 m/uL (4.30-5.90); RDW 13.8 % (11.5-15.5); WBC 6.4 k/uL (3.8-10.6)
[2019-08-15 12:08] LABS: Glucose,Whole Blood 386 mg/dL (75-99)
[2019-08-15] MEDS: CEFEPIME 2 GM in SODIUM CHLORIDE 0.9% 100 ML IVPB SCH (16:55)
[2019-08-15] MEDS: ONDANSETRON ODT 4 MG TAB PO SCH ×2 (16:55→23:23)
[2019-08-15 17:40] LABS: Glucose,Whole Blood 203 mg/dL (75-99)
[2019-08-15 20:46] LABS: Glucose,Whole Blood 141 mg/dL (75-99)
[2019-08-15] MEDS: amLODIPine 5 MG TAB PO SCH (21:17)
[2019-08-15] MEDS: ATORVASTATIN 80 MG TAB PO SCH (21:17)
--- NOTE | 2019-08-15 22:04 | PN ---
PROGRESS NOTE DATE OF SERVICE: 08/15/2019 This 64-year-old gentleman admitted with severe sepsis and possible left lower lobe pneumonia is being closely monitored. No chest pain. No palpitations. No fever. Infectious Disease and Nephrology are following the patient closely. Some of the medications are on hold. Transplant nephritis also is a possibility. Video fluoroscopic swallow test was also done which was unremarkable. Cultures are negative so far. The patient is mildly confused. Past medical history reviewed. Review of systems could not be taken; the patient is confused. CURRENT MEDICATIONS: Reviewed. They include: 1. Ventolin p.r.n. 2. Norvasc 5 mg at bedtime. 3. Aspirin 81 mg. 4. Lipitor. 5. Cefepime. 6. Plavix. 7. Cefazolin. 8. NovoLog. 9. Synthroid. 10.Lopressor. 11.Zofran. 12.Protonix. 13.Zoloft. 14.Sodium bicarb. 15.Prograf. PHYSICAL EXAMINATION: Patient is alert, oriented x2. Pulse 65, blood pressure 124/68, respiration 20, temperature 98.7, pulse ox 98% on room air. HEENT: Conjunctivae normal. NECK: No jugular venous distention. CARDIOVASCULAR SYSTEM: S1, S2 muffled. RESPIRATORY SYSTEM: Breath sounds diminished at the bases. A few scattered rhonchi and crackles. ABDOMEN: Soft. Non-tender. No mass palpable. LEGS: No edema. No swelling. NERVOUS SYSTEM: Higher functions as mentioned earlier. Moves all 4 limbs. No focal motor or sensory deficit. LYMPHATICS: No lymph node palpable in neck, axillae or groin. SKIN: No ulcer, rash, bleeding. JOINTS: No active deforming arthropathy. LABS: WBC 6.5, hemoglobin 11.4. Sodium 135, creatinine is 2.63. ASSESSMENT: 1. Acute sepsis with possible left lower pneumonia, possibly Gram-negative, present on admission, with possible acute urinary tract infection with sepsis. 2. Rule out transplant nephritis. 3. Nausea, vomiting and diarrhea; possible acute gastroenteritis. 4. Thrombocytopenia. 5. Anemia, normocytic anemia of chronic disease with chronic kidney disease. 6. Acute renal failure with acute tubular necrosis. 7. Chronic kidney disease, stage 3 baseline. 8. History of renal transplant. 9. History of renal disease and hemodialysis history. 10.History of coronary artery disease. 11.History of cerebrovascular accident, transient ischemic attack. 12.History of dementia. 13.History of diabetes mellitus, type 2. 14.Change in mental status, metabolic encephalopathy, acute on chronic. 15.History of gastroesophageal reflux disease. 16.Hypertension. 17.Hyperlipidemia. 18.History of myocardial infarction. 19.History of hypomagnesemia. 20.History of gastrointestinal bleed. 21.History of gastroparesis. 22.History of urinary tract infection with sepsis. 23.History of transient ischemic attack. 24.History of Clostridium difficile x3. 25.History of kidney transplantation and AV fistula. 26.History of depression. 27.Remote history of nicotine dependence. RECOMMENDATIONS AND DISCUSSION: In this 64-year-old gentleman who presented with multiple complex medical issues, we will monitor the patient closely, continue the current medications. Creatinine is stable at this time. The cultures are negative. Continue with the broad-spectrum antibiotics, symptomatic treatment. Follow closely with Nephrology and Infectious Disease. Guarded prognosis because of the multiple complex medical issues. Further recommendations to follow. MMODL / IJN: [id number] /
--- NOTE | 2019-08-15 23:10 | PN ---
PROGRESS NOTE DATE OF SERVICE: 08/15/2019 REASON FOR FOLLOWUP: Fever and possible UTI. INTERVAL HISTORY: The patient is currently afebrile, has been breathing comfortably. Did mention one episode of vomiting today. No chest pain, no shortness of breath or cough. No abdominal pain or diarrhea. PHYSICAL EXAMINATION: Blood pressure is 132/72 with a pulse of 59, temperature 99.5. He is 97% on room air. General description is a middle-aged male lying in bed in no distress. Respiratory system: Unlabored breathing, clear to auscultation anteriorly. Heart S1, S2. Regular rate and rhythm. Abdomen soft, no tenderness. LABS: Hemoglobin 11.4, white count 6.4, creatinine 2.63. Blood and urine culture have been negative so far. DIAGNOSTIC IMPRESSION AND PLAN: Patient admitted to the hospital with fever and vomiting with concern for ( ) nephritis. The patient did have positive UA though culture has been negative so far. With persistent nausea, vomiting we will obtain an ultrasound of the abdomen. Continue with the cefepime and monitor clinical course closely. MMODL / IJN: [id number] /
[2019-08-16] MEDS: SODIUM CHLORIDE 0.9% 1,000 ML IV SCH (04:19)
[2019-08-16] MEDS: LEVOTHYROXINE 50 MCG TAB PO SCH (05:27)
--- NOTE | 2019-08-16 06:53 | CONS ---
CONSULTATION DATE OF SERVICE: 08/15/2019 REASON FOR CONSULTATION: Persistent nausea, vomiting. HISTORY OF PRESENT ILLNESS: The patient is a 64-year-old white male admitted to the hospital because of persistent nausea, vomiting as well as diarrhea for the last several days duration. In fact, his family member is at the bedside who states that he has been having chronic intermittent nausea and vomiting for several years duration. He has diarrhea about 2 or 3 loose bowel movements daily. He was investigated in the past and apparently in March of this year he underwent an upper endoscopy that showed reflux esophagitis and mild gastritis. The patient has been maintained on Zofran as needed as well as Protonix daily. He also has longstanding history of diabetes mellitus, hypertension, hyperlipidemia. History of kidney transplant in the past, was on hemodialysis in the past. Currently doing well. He was admitted to the hospital with suspected left lower lobe pneumonia and presently on broad-spectrum antibiotics. PAST MEDICAL HISTORY: Significant for history of coronary artery disease, hypertension, diabetes mellitus, chronic renal insufficiency, history of kidney transplantation, ( ) in the past, dementia. PAST SURGICAL HISTORY: Kidney transplant, upper endoscopy. MEDICATIONS AT HOME: Include Lipitor, Protonix, Synthroid, Prograf, sodium bicarb, mycophenolate sodium, NovoLog, Plavix, apresoline, Norvasc, Lopressor, aspirin, Zofran, Ventolin, and Zoloft. ALLERGIES: None. SOCIAL HISTORY: No smoking, no alcohol use. FAMILY HISTORY: Father coronary artery disease. Mother hypertension. REVIEW OF SYSTEMS: CARDIOPULMONARY: He complains of some shortness of breath. : No dysuria or hematuria. MUSCULOSKELETAL: Unremarkable. SKIN: Unremarkable. ENDOCRINE: Unremarkable. PSYCHIATRIC: Unremarkable. GI: As mentioned above. ENT/VISION: Unremarkable. CONSTITUTIONAL: Fatigue, weakness. No fever, chills, night sweats. PHYSICAL EXAMINATION: He appears comfortable. No apparent distress. VITAL SIGNS: Stable. Blood pressure is 133/88, pulse rate 86 per minute and afebrile. HEENT examination unremarkable. Conjunctivae pink, sclerae anicteric. Oral cavity no lesions. NECK: No JVD or lymph node enlargement. CHEST: Clear to auscultation. HEART: Regular rate and rhythm. ABDOMEN: Soft. It was nontender, nondistended. Bowel sounds are positive, no organomegaly. EXTREMITIES: No pedal edema. NEURO: He is alert, oriented x3. No focal deficits. LABS: WBC is 9.5, hemoglobin 12.1, platelets 133. Basic metabolic panel is within normal limits. BUN is 39, creatinine 2.75. AST, ALT, T-bilirubin, alkaline phosphatase are within normal limits. C. diff with toxin is negative. He did have a modified barium swallow done yesterday which was unremarkable. IMPRESSION: 1. Chronic persistent nausea, vomiting of several months duration. He has these symptoms on an intermittent basis. He had an upper endoscopy done in 2018 and also one in March of 2019 which revealed gastritis and esophagitis. Patient maintained on Protonix and Zofran on an outpatient basis. He may have a component of diabetic gastroparesis causing his symptoms. 2. Possible left lower lobe pneumonia. Presently on antibiotics. 3. Acute urinary tract infection. 4. History of kidney transplant in 2010, on immunosuppressive therapy. 5. History of cerebrovascular accident and transient ischemic attack in the past. 6. Longstanding history of diabetes mellitus. RECOMMENDATION: 1. Continue with Protonix 40 mg daily. 2. Antiemetics as needed. 3. Small frequent meals. 4. Continue broad-spectrum antibiotics. 5. If he remains symptomatic, we will consider a gastric emptying scan on Sunday and we will follow with you closely. Thank you for this consultation. MMODL / IJN: [id number] /
[2019-08-16] MEDS: PANTOPRAZOLE 40 MG/10 ML VIAL IVP SCH ×2 (07:14→07:15)
[2019-08-16 07:17] LABS: Glucose,Whole Blood 383 mg/dL (75-99)
[2019-08-16] MEDS: INSULIN ASPART (NovoLOG) 100 UNIT/ML VIAL SQ SCH ×7 (07:59→21:11)
[2019-08-16] MEDS: SERTRALINE 100 MG TAB PO SCH (08:00)
[2019-08-16] MEDS: hydrALAZINE HCL 25 MG TAB PO SCH ×3 (08:00→21:11)
[2019-08-16] MEDS: ONDANSETRON ODT 4 MG TAB PO SCH ×2 (08:00→16:07)
[2019-08-16] MEDS: ASPIRIN 81 MG PO SCH (08:00)
[2019-08-16] MEDS: TACROLIMUS 1 MG CAP PO SCH ×2 (08:00→21:10)
[2019-08-16] MEDS: CLOPIDOGREL 75 MG TAB PO SCH (08:00)
[2019-08-16] MEDS: SODIUM BICARBONATE TAB 650 MG TAB PO SCH ×3 (08:00→21:10)
[2019-08-16] MEDS: METOPROLOL TARTRATE 25 MG TAB PO SCH ×2 (08:00→21:11)
[2019-08-16 09:56] LABS: Calcium 8.1 mg/dL (8.4-10.2); Potassium 4.6 mmol/L (3.5-5.1)
--- NOTE | 2019-08-16 10:08 | P.PN ---
Subjective Patient is seen in follow-up for chronic kidney disease and renal transplant management. Patient received a donor renal allograft in November 2010. Baseline creatinine is in the range of 2.3-2.5. GFR is near baseline. No vomiting overnight or this morning. No diarrhea. Oral intake remains poor. Vital signs are stable. General: The patient appeared well nourished and normally developed. HEENT: Head exam is unremarkable. Neck is without jugular venous distension. LUNGS: Lungs are clear to auscultation and percussion. Breath sounds decreased. HEART: Rate and Rhythm are regular. ABDOMEN: Soft, nontender. EXTREMITITES: No clubbing, cyanosis, or edema. Objective - Vital Signs Vital signs: Vital Signs Temp 98.0 F 08/16/19 06:56 Pulse 66 08/16/19 06:56 Resp 16 08/16/19 06:56 BP 164/66 08/16/19 06:56 Pulse Ox 97 08/16/19 06:56 Intake & Output 08/15/19 08/16/19 08/16/19 18:59 06:59 18:59 Intake Total 500 Balance 500 Intake: IV 500 Cefepime 2 gm In Sodium 100 Chloride 0.9% 100 ml @ 200 mls/hr IVPB Q24H [facility] Rx#:[id number] Sodium Chloride 0.9% 1, 400 000 ml @ 50 mls/hr IV . Q20H [facility] Rx#:[id number] Other: Voiding Method Toilet # Voids 3 2 # Emeses 1 - Labs CBC & Chem 7: 08/15/19 10:36 08/16/19 09:09 Labs: Abnormal Lab Results - Last 24 Hours (Table) 08/15/19 08/15/19 08/15/19 Range/Units 10:36 10:36 11:51 RBC 3.94 L (4.30-5.90) m/uL Hgb 11.4 L (13.0-17.5) gm/dL Hct 38.0 L (39.0-53.0) % MCHC 29.9 L (31.0-37.0) g/dL Plt Count 145 L (150-450) k/uL Lymphocytes # 0.7 L (1.0-4.8) k/uL Sodium 135 L (137-145) mmol/L Carbon Dioxide (22-30) mmol/L BUN 39 H (9-20) mg/dL Creatinine 2.63 H (0.66-1.25) mg/dL Glucose 461 H (74-99) mg/dL POC Glucose (mg/dL) 386 H (75-99) mg/dL Calcium 8.0 L (8.4-10.2) mg/dL Magnesium (1.6-2.3) mg/dL 08/15/19 08/15/19 08/16/19 Range/Units 17:10 20:45 06:54 RBC (4.30-5.90) m/uL Hgb (13.0-17.5) gm/dL Hct (39.0-53.0) % MCHC (31.0-37.0) g/dL Plt Count (150-450) k/uL Lymphocytes # (1.0-4.8) k/uL Sodium (137-145) mmol/L Carbon Dioxide (22-30) mmol/L BUN (9-20) mg/dL Creatinine (0.66-1.25) mg/dL Glucose (74-99) mg/dL POC Glucose (mg/dL) 203 H 141 H 383 H (75-99) mg/dL Calcium (8.4-10.2) mg/dL Magnesium (1.6-2.3) mg/dL 08/16/19 Range/Units 09:09 RBC (4.30-5.90) m/uL Hgb (13.0-17.5) gm/dL Hct (39.0-53.0) % MCHC (31.0-37.0) g/dL Plt Count (150-450) k/uL Lymphocytes # (1.0-4.8) k/uL Sodium 134 L (137-145) mmol/L Carbon Dioxide 18 L (22-30) mmol/L BUN 40 H (9-20) mg/dL Creatinine 2.56 H (0.66-1.25) mg/dL Glucose 379 H (74-99) mg/dL POC Glucose (mg/dL) (75-99) mg/dL Calcium 8.1 L (8.4-10.2) mg/dL Magnesium 1.0 L (1.6-2.3) mg/dL Microbiology - Last 24 Hours (Table) 08/12/19 10:49 Blood Culture - Preliminary Blood No Growth after 72 hours Assessment and Plan Plan: Assessment: 1. Status post donor renal allograft in November 2026. 2. Chronic kidney disease stage IIIB with baseline creatinine in the range of 2.3-2.5. Etiology is diabetic kidney disease as well as long-term calcineurin inhibitor use. 3. Fever. Possibly due to UTI as well as concern for pneumonia. He is maintained on IV antibiotics. COVID PCR negative. Infectious disease following. 4. Hypertension with chronic kidney disease. 5. Insulin-dependent diabetes mellitus. 6. Nausea and vomiting likely from gastroparesis. GI following. Gastric empty study pending 7. Metabolic acidosis secondary to chronic kidney disease and IV fluids. 8. Hypomagnesemia from poor intake. Plan: Hold Myfortic due to infection/vomiting at this time. Maintain Prograf - I did decrease the dose to 3 mg in the morning and 2 mg in the evening as the level is elevated at 12.0 from 08/13. Avoid nephrotoxins. Follow-up cultures. Continue to monitor renal function and urine output. Increase dose of sodium bicarbonate. Replace magnesium. 3 g IV today to be infused over 12 hours. Maintain normal saline.
[2019-08-16] MEDS: MAGNESIUM SULFATE-D5W PMX 1 GM in DEXTROSE/WATER 1 100ML.BAG IVPB SCH ×3 (10:29→17:44)
[2019-08-16] MEDS ORDERED: INSULIN DETEMIR (LEVEMIR) 100 UNIT/ML SYR SQ STA (11:07)
[2019-08-16 11:43] LABS: Glucose,Whole Blood 278 mg/dL (75-99)
[2019-08-16] MEDS: CEFEPIME 2 GM in SODIUM CHLORIDE 0.9% 100 ML IVPB SCH (13:01)
--- NOTE | 2019-08-16 15:56 | PN ---
PROGRESS NOTE DATE OF SERVICE: 08/16/2019 REASON FOR FOLLOWUP: Fever, possible UTI. INTERVAL HISTORY: The patient is currently afebrile. The patient denies having any chest pain or shortness of breath. No cough. Did not have any vomiting today. No diarrhea. EXAMINATION: Vital signs stable with a T-max of 98. General description is a middle-aged male lying in bed in no distress. Respiratory system: Unlabored breathing, clear to auscultation anteriorly. Heart S1, S2. Regular rate and rhythm. Abdomen soft, no tenderness. LABS: Creatinine is 2.56. DIAGNOSTIC IMPRESSION AND PLAN: Patient in the hospital with a fever and a positive UA with initial concern for possible transplant nephritis. Culture so far negative. Await ultrasound of the abdomen. Continue cefepime. Monitor clinical course closely. MMODL / IJN: [id number] /
[2019-08-16] MEDS ORDERED: Magnesium Replacement Protocol 1 EACH MISC MISCELLANE PRN (15:58)
[2019-08-16] MEDS ORDERED: Potassium Replacement Protocol 1 EACH MISC MISCELLANE PRN (15:58)
[2019-08-16 16:51] LABS: Glucose,Whole Blood 281 mg/dL (75-99)
--- NOTE | 2019-08-16 19:08 | PN ---
PROGRESS NOTE DATE OF SERVICE: 08/16/2019 This 64-year-old gentleman who was admitted with significant pneumonia and sepsis also had uncontrolled blood sugars. The patient apparently taking Lantus at home. Multiple consultants are following the patient closely. The patient's sugars are still elevated at 278. Creatinine is 2.56, hemoglobin 11.4. The cultures are negative so far. PAST MEDICAL HISTORY: Reviewed. REVIEW OF SYSTEMS: CARDIOVASCULAR SYSTEM: No angina or palpitations. RESPIRATORY: As mentioned earlier. GI: No nausea. : No dysuria. NERVOUS SYSTEM: No numbness or weakness. CURRENT MEDICATIONS: 1. Ventolin 2.5 q.i.d. p.r.n. 2. Norvasc 5 mg p.o. daily. 3. Aspirin. 4. Lipitor. 5. Cefepime 2 g IV q.daily. 6. Plavix 75 mg. 7. Apresoline. 8. NovoLog. 9. Levemir. 10.Synthroid. 11.Magnesium. 12.Zofran. 13.Protonix. 14.Prograf. PHYSICAL EXAM: Patient is alert, oriented x2. Pulse is 64, blood pressure 117/65, respiration 14, temperature 98.8, pulse ox 98% on room air HEENT: Conjunctivae normal. Oral mucosa moist. NECK: No jugular venous distention. No lymph node enlargement. CARDIOVASCULAR: S1, S2, muffled. No S3, no S4, RESPIRATORY: Diminished breath sounds at the bases. A few scattered rhonchi and crackles. ABDOMEN: Soft, nontender. No mass palpable LEGS: No edema, no swelling. NERVOUS SYSTEM: No focal deficits. LABS: WBC 6.2, hemoglobin ( ), sodium 134, creatinine is 2.56, magnesium is 1. ASSESSMENT: 1. Acute sepsis with possible left lower lobe pneumonia, possibly gram-negative, present on admission with possible acute urinary tract infection with sepsis. 2. Rule out transplant nephritis. 3. Nausea, vomiting and diarrhea; possible acute gastroenteritis, present on admission. 4. Thrombocytopenia. 5. Diabetes mellitus type 2, uncontrolled with hyperglycemia. 6. Anemia, normocytic anemia of chronic disease with chronic kidney disease. 7. Acute renal failure with acute tubular necrosis. 8. Chronic kidney disease, stage 3, baseline. 9. History of renal transplant. 10.History of renal disease, on hemodialysis. 11.Hypomagnesemia. 12.History of coronary artery disease. 13.History of cerebrovascular accident, transient ischemic attack. 14.History of dementia. 15.Diabetes mellitus type 2. 16.Change in mental status, metabolic encephalopathy, acute on chronic. 17.History of gastroesophageal reflux disease. 18.Hypertension. 19.Hyperlipidemia. 20.History of myocardial infarction. 21.History of hypomagnesemia. 22.Gastrointestinal bleed. 23.Gastroparesis. 24.Urinary tract infection with sepsis. 25.Transient ischemic attack. 26.Clostridium difficile x3. 27.History of kidney transplant, AV fistula. 28.History of depression. 29.Remote history of nicotine dependence. RECOMMENDATIONS AND DISCUSSION: Recommend to continue current medical management and symptomatic treatment. Otherwise, at this time I recommend continue the antibiotics. Closely follow with multiple consultants. Otherwise, replace magnesium. Continue the rest of medications. DVT prophylaxis. We will initiate Lantus 15 units and Lantus 10 units with scale. We will continue to monitor. Prognosis guarded. Further recommendations to follow. MMODL / IJN: [id number] /
[2019-08-16 20:45] LABS: Glucose,Whole Blood 183 mg/dL (75-99)
[2019-08-16] MEDS: amLODIPine 5 MG TAB PO SCH (21:11)
[2019-08-16] MEDS: HEPARIN SODIUM,PORCINE 5,000 UNIT/ML 1 ML VIAL SQ SCH (21:11)
[2019-08-16] MEDS: ATORVASTATIN 80 MG TAB PO SCH (21:11)
[2019-08-16] MEDS: INSULIN DETEMIR (LEVEMIR) 100 UNIT/ML SYR SQ SCH (21:12)
[2019-08-17] MEDS: ONDANSETRON ODT 4 MG TAB PO SCH ×3 (00:29→09:57)
[2019-08-17] MEDS: SODIUM CHLORIDE 0.9% 1,000 ML IV SCH ×2 (00:30→21:02)
[2019-08-17] MEDS: LEVOTHYROXINE 50 MCG TAB PO SCH (05:38)
[2019-08-17 06:59] LABS: Glucose,Whole Blood 55 mg/dL (75-99)
[2019-08-17] MEDS ORDERED: DEXTROSE 50% SYRINGE 50 ML IVP STA ×2 (07:00→07:05)
[2019-08-17 07:27] LABS: Glucose,Whole Blood 117 mg/dL (75-99)
[2019-08-17] MEDS: INSULIN ASPART (NovoLOG) 100 UNIT/ML VIAL SQ SCH ×7 (07:37→21:01)
--- NOTE | 2019-08-17 08:32 | US ---
EXAMINATION TYPE: US abdomen complete DATE OF EXAM: 08/17/2019 COMPARISON: Previous study dated 05/26/2017. CLINICAL HISTORY: fever , abd pain. EXAM MEASUREMENTS: Liver Length: 13.9 cm Gallbladder Wall: 0.3 cm CBD: 0.4 cm Spleen: 12.3 cm Right Kidney: 7.2 x 4.2 x 3.3 cm Left Kidney: 6.8 x 3.4 x 3.4 cm Right pelvic transplant kidney: 10.6 x 4.6 x 6.2 cm. Pancreas: wnl Liver: wnl Gallbladder: appears contracted, no stones seen Evidence for sonographic Mcclain's sign: no CBD: wnl Spleen: accessory spleen noted Right Kidney: atrophied Left Kidney: atrophied, cyst upper pole measures 1.7 x 1.9 x 1.6 Upper IVC: wnl Abd Aorta: bifurcation obscured by bowel gas Right pelvic transplant kidney: mild to moderate hydro The pancreas is unremarkable. The liver is normal in size without biliary dilatation. The gallbladder is contracted. No stones are seen. The gallbladder wall measures 3 mm. The distal com mon hepatic duct measures 4 mm. There is no sonographic Mcclain's sign. Both [place] kidneys are atrophied. There is a simple appearing 1.8 cm cyst in the upper pole of the n ative left kidney. There is a transplant kidney in the right pelvis. There is moderate hydronephrosis . Visualized portions of aorta and IVC are unremarkable. IMPRESSION: 1. TRANSPLANT KIDNEY WITH MODERATE HYDRONEPHROSIS. 2. ATROPHY OF THE [place]TE [place] KIDNEYS WITH A SIMPLE APPEARING, 1.9 CM CYST IN THE UPPER POLE OF THE TRANSP LANT KIDNEY.
[2019-08-17 09:06] LABS: Calcium 8.3 mg/dL (8.4-10.2); Magnesium 1.7 mg/dL (1.6-2.3); Potassium 4.3 mmol/L (3.5-5.1)
--- NOTE | 2019-08-17 09:11 | P.PN ---
Subjective Patient is seen in follow-up for chronic kidney disease and renal transplant management. Patient received a donor renal allograft in November 2010. Baseline creatinine is in the range of 2.3-2.5. GFR is near baseline. Patient states he did have diarrhea yesterday. No vomiting but a little nauseous. Vital signs are stable. General: The patient appeared well nourished and normally developed. HEENT: Head exam is unremarkable. Neck is without jugular venous distension. LUNGS: Lungs are clear to auscultation and percussion. Breath sounds decreased. HEART: Rate and Rhythm are regular. ABDOMEN: Soft, nontender. EXTREMITITES: No clubbing, cyanosis, or edema. Objective - Vital Signs Vital signs: Vital Signs Temp 97.8 F 08/17/19 07:16 Pulse 63 08/17/19 07:15 Resp 20 08/17/19 07:16 BP 146/80 08/17/19 07:15 Pulse Ox 98 08/17/19 07:15 Intake & Output 08/16/19 08/17/19 08/17/19 18:59 06:59 18:59 Intake Total 1040 Balance 1040 Intake: IV 500 Cefepime 2 gm In Sodium 100 Chloride 0.9% 100 ml @ 200 mls/hr IVPB Q24H [facility] Rx#:[id number] Sodium Chloride 0.9% 1, 400 000 ml @ 50 mls/hr IV . Q20H [facility] Rx#:[id number] Oral 540 Other: Voiding Method Toilet Toilet Diaper # Voids 1 1 - Labs CBC & Chem 7: 08/15/19 10:36 08/17/19 07:20 Labs: Abnormal Lab Results - Last 24 Hours (Table) 08/16/19 08/16/19 08/16/19 Range/Units 09:09 11:31 16:49 Sodium 134 L (137-145) mmol/L Carbon Dioxide 18 L (22-30) mmol/L BUN 40 H (9-20) mg/dL Creatinine 2.56 H (0.66-1.25) mg/dL Glucose 379 H (74-99) mg/dL POC Glucose (mg/dL) 278 H 281 H (75-99) mg/dL Calcium 8.1 L (8.4-10.2) mg/dL Magnesium 1.0 L (1.6-2.3) mg/dL 08/16/19 08/17/19 08/17/19 Range/Units 20:44 06:58 07:20 Sodium 136 L (137-145) mmol/L Carbon Dioxide (22-30) mmol/L BUN 42 H (9-20) mg/dL Creatinine 2.47 H (0.66-1.25) mg/dL Glucose 117 H (74-99) mg/dL POC Glucose (mg/dL) 183 H 55 L (75-99) mg/dL Calcium 8.3 L (8.4-10.2) mg/dL Magnesium (1.6-2.3) mg/dL 08/17/19 Range/Units 07:25 Sodium (137-145) mmol/L Carbon Dioxide (22-30) mmol/L BUN (9-20) mg/dL Creatinine (0.66-1.25) mg/dL Glucose (74-99) mg/dL POC Glucose (mg/dL) 117 H (75-99) mg/dL Calcium (8.4-10.2) mg/dL Magnesium (1.6-2.3) mg/dL Microbiology - Last 24 Hours (Table) 08/12/19 10:49 Blood Culture - Preliminary Blood No Growth after 96 hours Assessment and Plan Plan: Assessment: 1. Status post donor renal allograft in November 2026. 2. Chronic kidney disease stage IIIB with baseline creatinine in the range of 2.3-2.5. Etiology is diabetic kidney disease as well as long-term calcineurin inhibitor use. 3. Fever. Possibly due to UTI as well as concern for pneumonia. He is m aintained on IV antibiotics. COVID PCR negative. Infectious disease following. 4. Hypertension with chronic kidney disease. 5. Insulin-dependent diabetes mellitus. 6. Nausea and vomiting likely from gastroparesis. GI following. Gastric empty study pending. 7. Metabolic acidosis secondary to chronic kidney disease and IV fluids maintained on oral bicarb. Better. 8. Hypomagnesemia from poor intake. Improved post replacement. Plan: Hold Myfortic due to infection/diarrhea at this time. Maintain Prograf - I did decrease the dose to 3 mg in the morning and 2 mg in the evening as the level is elevated at 12.0 from 08/13. Avoid nephrotoxins. Follow-up cultures. Continue to monitor renal function and urine output. Maintain normal saline.
[2019-08-17] MEDS: HEPARIN SODIUM,PORCINE 5,000 UNIT/ML 1 ML VIAL SQ SCH ×2 (09:57→21:01)
[2019-08-17] MEDS: hydrALAZINE HCL 25 MG TAB PO SCH ×3 (09:57→21:01)
[2019-08-17] MEDS: ASPIRIN 81 MG PO SCH (09:57)
[2019-08-17] MEDS: SERTRALINE 100 MG TAB PO SCH (09:57)
[2019-08-17] MEDS: SODIUM BICARBONATE TAB 650 MG TAB PO SCH ×3 (09:57→21:00)
[2019-08-17] MEDS: METOPROLOL TARTRATE 25 MG TAB PO SCH ×2 (09:57→21:01)
[2019-08-17] MEDS: CLOPIDOGREL 75 MG TAB PO SCH (09:57)
[2019-08-17] MEDS: TACROLIMUS 1 MG CAP PO SCH ×2 (09:58→21:00)
[2019-08-17 11:25] LABS: Glucose,Whole Blood 104 mg/dL (75-99)
[2019-08-17 13:23] LABS: Appearance,Urine Clear (Clear); Bilirubin,Urine Negative (Negative); Blood,Urine Small (Negative); Color,Urine Light Yellow; Glucose,Urine (UA) 2+ (Negative); Ketones,Urine Negative (Negative); Leukocyte Esterase,Urine Moderate (Negative); Nitrite,Urine Negative (Negative); Protein,Urine 1+ (Negative); RBC,Urine 5 /hpf (0-5); Squamous Epithelial Cell,Urine <1 /hpf (0-4); Urobilinogen,Urine <2.0 mg/dL (<2.0); WBC,Urine 58 /hpf (0-5)
[2019-08-17] MEDS: IOPAMIDOL CONTRAST (ORAL USE) VIAL PO PRN ×2 (13:37→14:38)
[2019-08-17] MEDS: CEFEPIME 2 GM in SODIUM CHLORIDE 0.9% 100 ML IVPB SCH (13:46)
--- NOTE | 2019-08-17 14:21 | PN ---
PROGRESS NOTE DATE OF SERVICE: 08/17/2019 Patient is a 64-year-old white male with a history of chronic kidney disease status post kidney transplant 7 years ago, admitted to hospital with nausea, vomiting, not feeling well, some diarrhea. He had an episode of hypoglycemia this morning with blood sugar of 48 and he received IV dextrose and just started feeling better. He denies any abdominal pain. He did not have any episodes of nausea, vomiting. As per the nursing staff, he had one loose bowel movement early this morning. No bleeding. PHYSICAL EXAMINATION: Appears comfortable, in no apparent distress. VITAL SIGNS: Stable. Blood pressure is 146/80, pulse rate 63, temperature 97.8. HEENT examination unremarkable. Conjunctivae pink. Sclerae anicteric. Oral cavity no lesions. Neck no JVD or lymph node enlargement. CHEST was clear to auscultation. HEART: Regular rate and rhythm. ABDOMEN: Soft, nontender, nondistended. Bowel sounds are positive. No organomegaly Extremities: No pedal edema. NEUROLOGIC: Alert and oriented x3. No focal deficits. Labs from today: WBC 6.4, hemoglobin 11.4, platelets 145. Basic metabolic panel is within normal limits. BUN and creatinine 42 and 2.47 respectively. IMPRESSION: 1. Chronic nausea and vomiting of several months duration. Symptoms are better today. Remains on antiemetics as well as proton pump inhibitors. He is scheduled for a gastric emptying scan tomorrow to rule out diabetic gastroparesis. 2. Longstanding history of diabetes mellitus. 3. Chronic intermittent diarrhea. Stool for C difficile toxin is negative. 4. Chronic kidney disease. Nephrology following the patient closely. RECOMMENDATIONS: 1. Continue with Protonix and antiemetics. 2. Small frequent meals. 3. Patient is scheduled for gastric emptying scan tomorrow. 4. Continue symptomatic and supportive care. 5. We will follow with you closely. Thank you for this consultation. MMODL / IJN: [id number] /
--- NOTE | 2019-08-17 15:37 | CT ---
EXAMINATION TYPE: CT abdomen pelvis wo con DATE OF EXAM: 08/17/2019 COMPARISON: 07/31/2008 HISTORY: Abdominal pain CT DLP: 455.9 mGycm Automated exposure control for dose reduction was used. Multiple axial sections were obtained from the diaphragm to the floor the pelvis with oral contrast o nly. There is some mild patchy infiltrate and atelectasis at the lung bases. Heart size is fairly normal. There is no pericardial effusion. There is no pleural effusion. Liver spleen stomach appear intact. There is no evidence of pancreatic mass. There is extensive ather osclerotic vascular disease. There is advanced atrophy of the kidneys. There is no hydronephrosis. Th ere is extensive renal vascular calcification. Abdominal aorta is atheromatous. There is right side p elvic transplant kidney. There is mild hydronephrosis of the transplant kidney. Bladder distends smoo thly. Urinary bladder is dilated and measures 15 cm. There is no evidence of a pelvic mass. There is no free fluid in the pelvis. There is no sign of mesenteric edema. There is no sign of bowel obstruct ion. There is no evidence of free air. There is no ascites. There is no inguinal hernia. Lumbar vertebra have normal alignment and spacing. Posterior elements are intact. There is no silver jolene fracture. Bony pelvis is intact. IMPRESSION: There is some chronic infiltrates and atelectasis at the lung bases similar to old exam. Extensive atherosclerotic vascular disease. Transplant kidney shows hydronephrosis. Dilated urinary b ladder. Bladder outlet obstruction suspected. Urinary bladder measures almost 15 cm. Hydronephrosis c ould be secondary to dilated bladder.
[2019-08-17 16:42] LABS: Glucose,Whole Blood 292 mg/dL (75-99)
[2019-08-17 20:29] LABS: Glucose,Whole Blood 261 mg/dL (75-99)
[2019-08-17] MEDS: ATORVASTATIN 80 MG TAB PO SCH (21:00)
[2019-08-17] MEDS: amLODIPine 5 MG TAB PO SCH (21:01)
[2019-08-17] MEDS: INSULIN DETEMIR (LEVEMIR) 100 UNIT/ML SYR SQ SCH (21:02)
[2019-08-18] MEDS: ONDANSETRON ODT 4 MG TAB PO SCH ×3 (00:29→16:15)
--- NOTE | 2019-08-18 02:39 | PN ---
PROGRESS NOTE DATE OF SERVICE: 08/17/2019 This 64-year-old gentleman who was admitted with significant pneumonia and sepsis also had uncontrolled blood sugars also insulin was initiated yesterday. Today the blood sugar was low in the morning 55, but elevated later. The patient also had continued WBC. Abdomen and pelvis CAT scan was requested today which showed some chronic infiltrates, atelectasis; extensive atherosclerotic vascular disease; transplant kidney shows hydronephrosis; dilated urinary bladder and bladder outlet obstruction was suspected. Urinary bladder measures almost 15 cm. PAST MEDICAL HISTORY: Reviewed. REVIEW OF SYSTEMS: CARDIOVASCULAR SYSTEM: No angina. RESPIRATORY SYSTEM: As mentioned earlier. GI: As Mentioned earlier. : As mentioned earlier. NERVOUS SYSTEM: No numbness or weakness. CURRENT MEDICATIONS: Current medications are reviewed and include: 1. Ventolin 2.5 q.6. 2. Norvasc. 3. Lipitor. 4. Cefepime 2 grams IV daily. 5. Plavix. 6. Heparin. 7. Apresoline. 8. NovoLog. 9. Levemir. 10.Synthroid. 11.Zoloft. 12.Prograf. PHYSICAL EXAMINATION: Patient is alert and oriented x3. Pulse 65, blood pressure 150/66, respiration 19, temperature 97.8, pulse ox 98% on room air. HEENT: Conjunctivae normal. Oral mucosa moist. NECK: No jugular venous distention. CARDIOVASCULAR: S1, S2 muffled. RESPIRATORY: Breath sounds diminished at the bases. A few scattered rhonchi. ABDOMEN: Soft, nontender. No mass palpable. LEGS: No edema. No swelling. NERVOUS SYSTEM: No focal deficits. LABS: Sodium 136, potassium 4.3. WBC is not available. ASSESSMENT: 1. Acute sepsis with possible left lower lobe pneumonia possibly gram-negative present on admission. 2. Possible acute urinary tract infection with sepsis, present on admission. 3. Rule out bladder obstruction and transplant nephritis. 4. Possible hydronephrosis of the transplanted kidney. 5. Nausea, vomiting, diarrhea possible acute gastroenteritis, present on admission. 6. Thrombocytopenia. 7. Diabetes mellitus type 2 uncontrolled with hyper and hypoglycemia. 8. Anemia, normocytic anemia of chronic disease. 9. Acute renal failure with acute tubular necrosis. 10.Chronic kidney disease stage 3 baseline. 11.History of renal transplant. 12.History of renal disease, on hemodialysis. 13.Hypomagnesemia. 14.History of coronary artery disease. 15.History of cerebrovascular accident, transient ischemic attack. 16.History of dementia. 17.Diabetes mellitus type 2. 18.Change in mental status, metabolic encephalopathy, acute on chronic. 19.History of gastroesophageal reflux disease. 20.Hypertension. 21.Hyperlipidemia. 22.History of myocardial infarction. 23.History of hypomagnesemia. 24.Gastrointestinal bleed. 25.History of gastroparesis. 26.Urinary tract infection with sepsis history. 27.History of transient ischemic attack. 28.History of Clostridium difficile x3. 29.History of kidney transplant, AV fistula. 30.History of depression. 31.Remote history of nicotine dependence. 32.NO CODE, NO CPR, NO VENT. RECOMMENDATIONS AND DISCUSSION: This 64-year-old gentleman who presented with multiple complex medical issues. At this time I recommend to continue current medications, continue with symptomatic treatment. Continue with antibiotics. The cultures are negative so far. Repeat urine is still abnormal. I would recommend to follow up closely with Nephrology and Infectious Disease and I would also recommend Urology consultation also. Prognosis guarded because of multiple complex medical issues. Further recommendations to follow. MMODL / IJN: [id number] / YUNG
[2019-08-18] MEDS: SODIUM CHLORIDE 0.9% 1,000 ML IV SCH (04:03)
[2019-08-18] MEDS: LEVOTHYROXINE 50 MCG TAB PO SCH (05:43)
--- NOTE | 2019-08-18 06:26 | PN ---
PROGRESS NOTE DATE OF SERVICE: 08/17/2019 REASON FOR FOLLOWUP: Fever and a question of transplant nephritis. INTERVAL HISTORY: The patient is currently afebrile. The patient is breathing comfortably. The patient denies having any chest pain or shortness of breath or cough. No further vomiting. PHYSICAL EXAMINATION: His vital signs are stable with a T-max of 98. General description is a middle-aged male lying in bed in no distress. RESPIRATORY SYSTEM: Unlabored breathing, clear to auscultation anteriorly. HEART: S1, S2. Regular rate and rhythm. ABDOMEN: Soft, no tenderness. LABS: Repeat urine is positive. Creatinine 2.47. Ultrasound and CT suspicious for bladder outlet obstruction with significant distention of the bladder and transplant hydronephrosis. DIAGNOSTIC IMPRESSION AND PLAN: Patient with fever, possible urinary source in this patient who did have a transplanted kidney with possible secondary to significant bladder outlet obstruction and hydronephrosis . Patient covered with cefepime to continue while waiting for repeat urine culture to finalize. Continue supportive care. MMODL / IJN: [id number] /
[2019-08-18 07:34] LABS: Glucose,Whole Blood 93 mg/dL (75-99)
[2019-08-18] MEDS: ASPIRIN 81 MG PO SCH (07:43)
[2019-08-18] MEDS: CLOPIDOGREL 75 MG TAB PO SCH (07:43)
[2019-08-18] MEDS: INSULIN ASPART (NovoLOG) 100 UNIT/ML VIAL SQ SCH ×7 (07:43→21:53)
[2019-08-18] MEDS: TACROLIMUS 1 MG CAP PO SCH ×2 (07:44→21:51)
[2019-08-18] MEDS: SODIUM BICARBONATE TAB 650 MG TAB PO SCH ×3 (07:44→21:52)
[2019-08-18] MEDS: METOPROLOL TARTRATE 25 MG TAB PO SCH ×2 (07:44→21:52)
[2019-08-18] MEDS: HEPARIN SODIUM,PORCINE 5,000 UNIT/ML 1 ML VIAL SQ SCH ×2 (07:44→21:51)
[2019-08-18] MEDS: PANTOPRAZOLE 40 MG/10 ML VIAL IVP SCH (07:44)
[2019-08-18] MEDS: hydrALAZINE HCL 25 MG TAB PO SCH ×3 (07:44→21:53)
[2019-08-18] MEDS: SERTRALINE 100 MG TAB PO SCH (07:44)
[2019-08-18] MEDS: DEXTROSE 5%-0.9% NACL 1,000 ML IV SCH (08:30)
[2019-08-18 09:05] LABS: Calcium 8.1 mg/dL (8.4-10.2); Magnesium 1.5 mg/dL (1.6-2.3); Potassium 4.7 mmol/L (3.5-5.1)
[2019-08-18 12:28] LABS: Glucose,Whole Blood 109 mg/dL (75-99)
[2019-08-18] MEDS: CEFEPIME 2 GM in SODIUM CHLORIDE 0.9% 100 ML IVPB SCH (14:25)
--- NOTE | 2019-08-18 16:26 | PN ---
PROGRESS NOTE Patient is seen for followup for chronic kidney disease and acute kidney injury in a transplant kidney. Renal function is fairly stable; creatinine down to 2.4 from 2.7 on initial admission. Patient's Prograf level was elevated and his dose has been adjusted. He is maintained on IV fluids at 50 mL/hour. PHYSICAL EXAMINATION: On examination today, blood pressure was 140/73, heart rate 70 per minute. He is afebrile. EXAMINATION OF THE HEART: S1 and S2. EXAMINATION OF LUNGS: Bilateral breath sounds are heard. Decreased breath sounds at bases. ABDOMEN: Soft, non-tender. Examination of lower extremities shows no evidence of edema. CHIMNEY BUILDER exam is grossly intact. LABS: Labs show sodium 136, potassium 4.7, chloride 108, BUN 39, serum creatinine 2.4. UA shows 1+ protein, glucose 2+, small blood. ASSESSMENT: 1. Acute kidney injury, prerenal, currently improved with IV hydration as well as decreasing the Prograf dose. 2. Status post -donor renal transplant in November 2010. Baseline creatinine 2.3 to 2.5 mg/dL. 3. Diarrhea, somewhat improved per patient. 4. Fever secondary to possible pneumonia. Urine culture did not show any growth of specific bacteria. 5. Type 2 diabetes, maintained on insulin. 6. Hypertension, currently on hydralazine. PLAN: Continue IV fluids. Continue to encourage increased oral intake. Maintain Prograf at the decreased dose secondary to high levels. Repeat Prograf level in the morning. MMODL / IJN: [id number] /
[2019-08-18 17:16] LABS: Glucose,Whole Blood 415 mg/dL (75-99)
--- NOTE | 2019-08-18 19:27 | PN ---
PROGRESS NOTE DATE OF SERVICE: 08/18/2019 REASON FOR FOLLOWUP: Fever and a question of UTI. INTERVAL HISTORY: The patient is currently afebrile, has been breathing comfortably. Denies having any chest pain or shortness of breath or cough. No nausea, no vomiting and no diarrhea. PHYSICAL EXAMINATION: Blood pressure 140/73 with a pulse of 78, temperature 98.3. He is 97% on room air. General description is a middle-aged male lying in bed in no distress. RESPIRATORY SYSTEM: Unlabored breathing. Clear to auscultation anteriorly. HEART: S1, S2. Regular rate and rhythm. ABDOMEN: Soft. No tenderness. LABS: BUN of 39, creatinine 2.40. Repeat urine culture so far pending. DIAGNOSTIC IMPRESSION AND PLAN: Patient admitted to hospital with a fever. He did have significantly positive UA with concern for transplant nephritis, though urine culture came back negative. However, the UA that was repeated yesterday did show some overall improvement. We will keep the patient on cefepime, wait for repeat urine culture to finalize to determine his discharge antibiotics. Continue with supportive care. MMODL / IJN: [id number] /
[2019-08-18 20:26] LABS: Glucose,Whole Blood 337 mg/dL (75-99)
[2019-08-18] MEDS: PANTOPRAZOLE 40 MG TABLET PO SCH (21:52)
[2019-08-18] MEDS: ATORVASTATIN 80 MG TAB PO SCH (21:52)
[2019-08-18] MEDS: amLODIPine 5 MG TAB PO SCH (21:52)
[2019-08-18] MEDS: INSULIN DETEMIR (LEVEMIR) 100 UNIT/ML SYR SQ SCH (21:53)
--- NOTE | 2019-08-18 21:54 | PN ---
PROGRESS NOTE DATE OF SERVICE: 08/18/2019 This 64-year-old gentleman who was admitted with acute sepsis had left lower pneumonia and had uncontrolled blood sugars, also. The patient had a CT scan of the abdomen and pelvis which showed multiple findings. Patient is being closely monitored. No fever no cough. PHYSICAL EXAMINATION: Alert and oriented x3. Pulse 74, pressure 147/70, respiration 18, temperature 98.4, pulse ox 97% on room air. HEENT: Conjunctivae normal. NECK: No jugular venous distention. CARDIOVASCULAR SYSTEM: S1, S2 muffled. RESPIRATORY SYSTEM: Breath sounds diminished at the bases. A few scattered rhonchi. ABDOMEN: Soft, non-tender. No mass palpable. LEGS: No edema. No swelling. NERVOUS SYSTEM: No focal deficit. LABS: Creatinine 2.4, sodium 136. Other labs are noted. ASSESSMENT: 1. Acute sepsis with possible left lower lobe pneumonia, possibly Gram-negative, present on admission. 2. Possible acute urinary tract infection with sepsis, present on admission. 3. Rule out bladder obstruction and transplant nephritis. 4. Possible hydronephrosis of the transplanted kidney. 5. Nausea, vomiting, diarrhea with possible acute gastroenteritis, present on admission. 6. Thrombocytopenia. 7. Diabetes mellitus, type 2, uncontrolled with hyper- and hypoglycemia. 8. Anemia, normocytic anemia of chronic disease. 9. Acute renal failure with acute tubular necrosis. 10.Chronic kidney disease, stage 3 baseline. 11.History of renal transplant. 12.History of renal disease, on hemodialysis. 13.Hypomagnesemia. 14.History of coronary artery disease. 15.History of cerebrovascular accident, transient ischemic attack. 16.History of dementia. 17.Diabetes mellitus, type 2. 18.Change in mental status, metabolic encephalopathy, acute on chronic. 19.History of gastroesophageal reflux disease. 20.Hypertension. 21.Hyperlipidemia. 22.History of myocardial infarction. 23.History of hypomagnesemia. 24.History of gastrointestinal bleed. 25.History of gastroparesis. 26.History of urinary tract infection with sepsis history. 27.History of transient ischemic attack. 28.History of Clostridium difficile x3. 29.History of kidney transplant, AV fistula. 30.History of depression. 31.Remote history of nicotine dependence. 32.NO CODE, NO CPR, NO VENT. RECOMMENDATIONS AND DISCUSSION: I recommend to continue current medications, continue with the monitoring, symptomatic treatment. Continue with the antibiotics. Closely follow with Nephrology. Urology evaluation. Guarded prognosis. Further recommendations to follow. See orders for further details. The cultures are negative so far. Prognosis guarded. MMODL / IJN: [id number] /
[2019-08-19] MEDS: ONDANSETRON ODT 4 MG TAB PO SCH ×5 (01:18→23:51)
[2019-08-19] MEDS: DEXTROSE 5%-0.9% NACL 1,000 ML IV SCH (04:51)
[2019-08-19] MEDS: LEVOTHYROXINE 50 MCG TAB PO SCH (06:13)
[2019-08-19] MEDS: SODIUM CHLORIDE 0.9% 1,000 ML IV SCH (07:31)
[2019-08-19] MEDS: SERTRALINE 100 MG TAB PO SCH (07:32)
[2019-08-19] MEDS: INSULIN ASPART (NovoLOG) 100 UNIT/ML VIAL SQ SCH ×7 (07:32→21:25)
[2019-08-19] MEDS: TACROLIMUS 1 MG CAP PO SCH ×3 (07:32→21:27)
[2019-08-19] MEDS: SODIUM BICARBONATE TAB 650 MG TAB PO SCH ×3 (07:32→21:27)
[2019-08-19] MEDS: HEPARIN SODIUM,PORCINE 5,000 UNIT/ML 1 ML VIAL SQ SCH ×2 (07:34→21:25)
[2019-08-19] MEDS: CLOPIDOGREL 75 MG TAB PO SCH (07:38)
[2019-08-19] MEDS: METOPROLOL TARTRATE 25 MG TAB PO SCH ×3 (07:38→21:26)
[2019-08-19] MEDS: hydrALAZINE HCL 25 MG TAB PO SCH ×3 (07:38→21:27)
[2019-08-19] MEDS: ASPIRIN 81 MG PO SCH (07:38)
[2019-08-19] MEDS: PANTOPRAZOLE 40 MG TABLET PO SCH ×3 (07:39→21:26)
[2019-08-19 08:22] LABS: Glucose,Whole Blood 338 mg/dL (75-99)
[2019-08-19 10:15] LABS: Calcium 8.2 mg/dL (8.4-10.2); Magnesium 1.4 mg/dL (1.6-2.3); Potassium 4.7 mmol/L (3.5-5.1)
[2019-08-19 12:04] LABS: Glucose,Whole Blood 218 mg/dL (75-99)
[2019-08-19] MEDS: TAMSULOSIN 0.4 MG CAP.ER.24H PO SCH (12:23)
[2019-08-19] MEDS: MAGNESIUM SULFATE-D5W PMX 1 GM in DEXTROSE/WATER 1 100ML.BAG IVPB SCH ×2 (12:24→14:58)
--- NOTE | 2019-08-19 12:54 | P.GSCN ---
History of Present Illness Consult date: 08/19/19 Reason for Consult: urinary retention/hydronephrosis History of present illness: Mr Wright is a 64-year-old male with hx of kidney transplant back in 2010. He is admitted to the hospital fever and pneumonia. He undwerent CT abd/pelvis which showed hydronephrosis of the transplanted kidney with distended bladder. The ureter is dilated to the bladder insertion. He indicates at baseline he has urinary incontinence, denies any dysuria. denies any obstructive symptoms. no hx of gross hematuria or kidney stones. No family hx of prostate cancer Review of Systems - Constitutional Denies fever, Denies weight loss - Cardiovascular Denies chest pain, Denies shortness of breath - Respiratory Denies cough, Denies 7 - Genitourinary Reports incontinence, Reports urinary retention, Denies dysuria, Denies flank p ain, Denies kidney stones - Neurological Denies headaches, Denies syncope Past Medical History Past Medical History: Coronary Artery Disease (CAD), Cancer, Chest Pain / Angina, CVA/TIA, Dementia, Diabetes Mellitus, Dialysis, Eye Disorder, GERD/Reflux, GI Bleed, Hearing Disorder / Deafness, Hyperlipidemia, Hypertension, Myocardial Infarction ([place]), Pneumonia, Renal Disease, Thyroid Disorder Additional Past Medical History / Comment(s): IDDM type I, neuropathy bilateral legs/feet, retinopathy bilaterally and is nearly blind, gastroparesis, ESRD with past hemo/peritoneal dialysis and in 2010 received kidney transplant, CKD stage II or III, recurrent UTIs, UTI with sepsis, does not completely empty bladder- self caths on occasion, incontinent of urine at times, TIAs, 2013 fall with multiple fractured ribs, vascular dementia, skin cancer with removal, upper GI bleed, hypomagnesemia, past medical record notes CDiff 3 times in the past Last Myocardial Infarction Date:: 01/2019 History of Any Multi-Drug Resistant Organisms: C-DIFF Year Discovered:: "years ago" MDRO Source:: stool Past Surgical History: Heart Catheterization, Heart Catheterization With Stent Additional Past Surgical History / Comment(s): 01/2019 cardiac cath tx medically, PCI with stents in 2012 and 2015, kidney transplant November 2010, patient has an AV fistula in the left upper extremity, colonoscopy, skin cancer removal , bilateral eye retinal bleeds with surgery, teeth extractions. Past Anesthesia/Blood Transfusion Reactions: No Reported Reaction Date of Last Stent Placement:: 09/2015 Smoking Status: Former smoker - Past Family History Brother(s) Additional Family Medical History / Comment(s): Brother had depression and comitted suicide. Father Family Medical History: Diabetes Mellitus Additional Family Medical History / Comment(s): Father lived into his 90s. Mother Family Medical History: Myocardial Infarction ([place]) Additional Family Medical History / Comment(s): Mother of a [place] at the age of 57yrs. Medications and Allergies Home Medications Medication Instructions Recorded Confirmed Type Aspirin 81 mg PO DAILY #30 chew 09/27/15 08/12/19 Rx Atorvastatin [Lipitor] 80 mg PO HS #30 tab 09/27/15 08/12/19 Rx Levothyroxine Sodium [Synthroid] 50 mcg PO DAILY 03/13/17 08/12/19 History Mycophenolate Sodium [Mycophenolic 720 mg PO BID 03/13/17 08/12/19 History Acid] Tacrolimus [Prograf] 3 mg PO Q12H 12/17/17 08/12/19 History Insulin Aspart [NovoLOG Flexpen] 8 unit SQ AC-BRKFST 01/17/18 08/12/19 History Clopidogrel [Plavix] 75 mg PO DAILY 30 Days #30 tab 01/22/19 08/12/19 Rx Sodium Bicarbonate Tab 650 mg PO BID 30 Days #60 tab 01/22/19 08/12/19 Rx amLODIPine [Norvasc] 5 mg PO HS 30 Days #30 tab 01/22/19 08/12/19 Rx hydrALAZINE HCL [Apresoline] 25 mg PO TID 30 Days #90 tab 01/22/19 08/12/19 Rx Metoprolol Tartrate [Lopressor] 25 mg PO BID 03/20/19 08/12/19 History Insulin Aspart [NovoLOG Flexpen] 3 - 4 units SQ AC-BID 04/01/19 08/12/19 History Albuterol Inhaler [Ventolin Hfa 1 - 2 puff INHALATION RT-Q6H PRN 08/12/19 08/12/19 History Inhaler] Ondansetron Odt [Zofran ODT] 4 mg PO Q8H PRN 08/12/19 08/12/19 History Pantoprazole Sodium [Protonix] 40 mg PO BID 08/12/19 08/12/19 History Sertraline HCl [Zoloft] 100 mg PO DAILY 08/12/19 08/12/19 History Allergies Allergy/AdvReac Type Severity Reaction Status Date / Time No Known Allergies Allergy Verified 08/12/19 09:57 Surgical - Exam Vital Signs Temp Pulse Resp BP Pulse Ox 100.1 F H 91 18 127/75 99 08/12/19 09:52 08/12/19 09:52 08/12/19 09:52 08/12/19 09:52 08/12/19 09:52 - General well developed, well nourished, no distress - Eyes PERRL, normal ocular movement - ENT normal mucosa, no hearing loss - Respiratory normal expansion, normal respiratory effort - Abdomen Abdomen: soft, non tender, no distended - Psychiatric oriented to time, oriented to person, oriented to place Results - Labs 08/15/19 10:36 08/19/19 09:31 Abnormal Lab Results - Last 24 Hours (Table) 08/18/19 08/18/19 08/18/19 Range/Units 12:23 17:07 20:24 POC Glucose (mg/dL) 109 H 415 H 337 H (75-99) mg/dL 08/19/19 Range/Units 07:24 POC Glucose (mg/dL) 338 H (75-99) mg/dL Microbiology - Last 24 Hours (Table) 08/16/19 23:00 Stool Culture - Preliminary Stool 08/12/19 10:49 Blood Culture - Final Blood No Growth after 144 hours 08/17/19 13:10 Urine Culture - Preliminary Urine,Voided Assessment and Plan Assessment: 64 yo male admitted to the hospital with pneumonia. CT abd/pelvis demonstrated bladder distension with hydroureteronephrosis down to the bladder. Has hx of urinary incontinence most likely secondary to overflow urinary incontinence from urinary retention Plan: -flomax 0.4 mg -insert bullock -F/U one week for TOV, will eventually need repeat RBUS to assess for resolution of hydro with bladder decompression
[2019-08-19] MEDS: PROCHLORPERAZINE 10 MG TAB PO PRN ×2 (13:00→17:05)
[2019-08-19] MEDS: CEFEPIME 2 GM in SODIUM CHLORIDE 0.9% 100 ML IVPB SCH (13:46)
--- NOTE | 2019-08-19 14:40 | PN ---
PROGRESS NOTE Patient is seen for followup for acute kidney injury and post-transplant care. He is sitting up in a bedside chair. Patient is nauseated this morning. He has just had a small emesis. He denies any abdominal pain. He stated that he tolerated his dinner fairly well yesterday. CT of the abdomen done yesterday shows mild hydronephrosis of the transplant kidney. On examination today, blood pressure was 166/78, heart rate 81 per minute, patient is afebrile. Examination of the heart S1, S2. Examination of the lungs, decreased breath sounds at bases. Abdomen is soft, nontender. Examination of lower extremities shows no evidence of edema. CLIENT DEVELOPMENT CONSULTANT exam grossly intact. Labs show sodium 136, potassium 4.7, chloride 108, BUN 36, creatinine 2.39. ASSESSMENT: 1. Acute kidney injury prerenal, currently improved. Possible element of obstructive uropathy as well with evidence of transplant, hydro noted on CT scan. I will check a postvoid residual and we will decide if patient needs a Bustos catheter. I would like to avoid long-term Bustos catheter in a transplant kidney. 2. Volume depletion on admission currently improved. 3. Hypomagnesemia, it will be replaced. 4. Diarrhea, somewhat improved now. 5. Fever with evidence of pyuria, status post antibiotics. Cultures show no growth thus far. PLAN: Continue with antibiotics. Check postvoid residual. Insert Bustos. Add Flomax if there is evidence of urine retention. Patient is maintained on Flomax. He will likely need urology consult if he has urine retention. MMODL / IJN: [id number] /
--- NOTE | 2019-08-19 15:25 | P.PN ---
Subjective Progress Note Date: 08/19/19 Principal diagnosis: This is a 64-year-old male who was recently admitted with acute sepsis and also was found to have left lower lobe pneumonia with uncontrolled blood sugars and is being closely monitored. Patient does have a history of kidney transplant and is being closely followed by nephrology. Patient was having some urinary retention and was consulted by urology. Patient has indwelling Bustos catheter and will continue at this time. Infectious disease also following the patient is currently maintained on cefepime and awaiting urine culture finalization. He shouldn't continues to have nausea and vomiting with diarrhea although states the diarrhea has somewhat improved. Patient is tolerating diet but having intermittent vomiting noted. Patient's creatinine today is 2.39 and mag was found to be 1.4 and currently being replaced. Patient is on gentle IV hydration and will continue at this time. Will repeat a.m. labs. Currently no reports of chest pain, shortness of breath, or palpitations. Patient is afebrile. Objective - Vital Signs Vital signs: Vital Signs Temp 98.1 F 08/19/19 07:00 Pulse 81 08/19/19 07:00 Resp 16 08/19/19 07:00 BP 166/78 08/19/19 07:00 Pulse Ox 95 08/19/19 07:00 Intake & Output 08/18/19 08/19/19 08/19/19 18:59 06:59 18:59 Intake Total 200 865 700 Balance 200 865 700 Intake: IV 500 Cefepime 2 gm In Sodium 100 Chloride 0.9% 100 ml @ 200 mls/hr IVPB Q24H [facility] Rx#:[id number] Sodium Chloride 0.9% 1, 400 000 ml @ 50 mls/hr IV . Q20H [facility] Rx#:[id number] Intake, IV Titration 625 200 Amount Magnesium Sulfate-D5w Pmx 200 1 gm In Dextrose/Water 1 100ml.bag @ 100 mls/hr IVPB Q1H [facility] Rx#: [id number] Sodium Chloride 0.9% 1, 625 000 ml @ 50 mls/hr IV . Q20H [facility] Rx#:[id number] Oral 200 240 Other: Voiding Method Toilet Diaper # Voids 2 1 - Exam Gen: This is a 64-year-old male sitting up in bed, awake, alert and oriented 3, well-developed, well-nourished. HEENT: Head is atraumatic, normocephalic. Pupils equal, round. Sclerae is anic teric. NECK: Supple. No JVD. No lymphadenopathy. No thyromegaly. LUNGS: Breath sounds diminished bilaterally with a few scattered rhonchi noted. No intercostal retractions. HEART: S1, S2 are muffled ABDOMEN: Soft. Bowel sounds are present. No masses. No tenderness. EXTREMITIES: No pedal edema. No calf tenderness. NEUROLOGICAL: Patient is awake, alert and oriented x3. Cranial nerves 2 through 12 are grossly intact. - Labs CBC & Chem 7: 08/15/19 10:36 08/19/19 09:31 Labs: Abnormal Lab Results - Last 24 Hours (Table) 08/18/19 08/18/19 08/19/19 Range/Units 17:07 20:24 07:24 Sodium (137-145) mmol/L Chloride (98-107) mmol/L Carbon Dioxide (22-30) mmol/L BUN (9-20) mg/dL Creatinine (0.66-1.25) mg/dL Glucose (74-99) mg/dL POC Glucose (mg/dL) 415 H 337 H 338 H (75-99) mg/dL Calcium (8.4-10.2) mg/dL Magnesium (1.6-2.3) mg/dL 08/19/19 08/19/19 Range/Units 09:31 12:03 Sodium 136 L (137-145) mmol/L Chloride 108 H (98-107) mmol/L Carbon Dioxide 21 L (22-30) mmol/L BUN 36 H (9-20) mg/dL Creatinine 2.39 H (0.66-1.25) mg/dL Glucose 284 H (74-99) mg/dL POC Glucose (mg/dL) 218 H (75-99) mg/dL Calcium 8.2 L (8.4-10.2) mg/dL Magnesium 1.4 L (1.6-2.3) mg/dL Microbiology - Last 24 Hours (Table) 08/17/19 13:10 Urine Culture - Final Urine,Voided 08/16/19 23:00 Stool Culture - Preliminary Stool 08/12/19 10:49 Blood Culture - Final Blood No Growth after 144 hours Assessment and Plan Assessment: Acute sepsis with possible left lower lobe pneumonia, possibly gram-negative, present on admission Possible acute urinary tract infection with sepsis, present on admission Rule out bladder obstruction and transplant nephritis Hydronephrosis of the right transplanted kidney is noted on CT Nausea, vomiting, diarrhea with possible acute gastroenteritis, present on admission Thrombocytopenia Diabetes mellitus type 2, uncontrolled with hyper and hypoglycemia Anemia, normocytic anemia of chronic disease Acute renal failure with acute tubular necrosis Chronic kidney disease, stage III baseline History of renal transplant History of renal disease, on hemodialysis Hypomagnesemia Change in mental status, metabolic encephalopathy, acute on chronic Hypertension Hyperlipidemia History of gastroparesis No code, no CPR, no vent Plan: Continue current medications, management, and symptomatic treatment. Continue IV antibiotics in the form of cefepime while awaiting urine cultures to finalized. Continue Gentle IV hydration. Will repeat a.m. labs. Patient was evaluated by urology and an indwelling Bustos catheter was placed and patient will follow-up in the outpatient setting. Further recommendations to follow. Possible discharge in 24-48 hours.
--- NOTE | 2019-08-19 16:18 | PN ---
PROGRESS NOTE DATE OF SERVICE: 08/19/2019 REASON FOR FOLLOWUP: Urinary tract infection. INTERVAL HISTORY: The patient is currently afebrile. The patient is still complaining of feeling nauseated and did have vomiting. Denies having any chest pain or shortness of breath or cough or diarrhea. PHYSICAL EXAMINATION: Blood pressure 166/70 with a pulse of 81, temperature 98.1. He is 95% on room air. General description is a middle-aged male lying in bed in no distress. RESPIRATORY SYSTEM: Unlabored breathing. Clear to auscultation anteriorly. HEART: S1, S2. Regular rate and rhythm. ABDOMEN: Soft. No tenderness. LABS: BUN of 36, creatinine 2.39. DIAGNOSTIC IMPRESSION AND PLAN: Patient admitted to hospital with fever and vomiting in this patient with concern for possible transplant nephritis. CT has been suggestive of bladder distention and hydronephrosis. Bustos and Flomax have been suggested by Urology. Patient is covered cefepime; to continue and monitor his clinical course closely. Continue with supportive care. MMODL / IJN: [id number] /
[2019-08-19 17:27] LABS: Glucose,Whole Blood 223 mg/dL (75-99)
[2019-08-19 20:28] LABS: Glucose,Whole Blood 168 mg/dL (75-99)
[2019-08-19] MEDS: amLODIPine 5 MG TAB PO SCH (21:24)
[2019-08-19] MEDS: INSULIN DETEMIR (LEVEMIR) 100 UNIT/ML SYR SQ SCH (21:25)
[2019-08-19] MEDS: ATORVASTATIN 80 MG TAB PO SCH (21:25)
[2019-08-19 23:22] LABS: Glucose,Whole Blood 242 mg/dL (75-99)
[2019-08-19] MEDS ORDERED: HALOPERIDOL LACTATE 5 MG/ML 1 ML VIAL IM PRN (23:57)
[2019-08-20] MEDS: LEVOTHYROXINE 50 MCG TAB PO SCH (05:31)
[2019-08-20 07:42] LABS: Glucose,Whole Blood 112 mg/dL (75-99)
[2019-08-20] MEDS: INSULIN ASPART (NovoLOG) 100 UNIT/ML VIAL SQ SCH ×4 (07:54→11:59)
[2019-08-20] MEDS: TAMSULOSIN 0.4 MG CAP.ER.24H PO SCH (07:59)
[2019-08-20] MEDS: ASPIRIN 81 MG PO SCH (07:59)
[2019-08-20] MEDS: HEPARIN SODIUM,PORCINE 5,000 UNIT/ML 1 ML VIAL SQ SCH (07:59)
[2019-08-20] MEDS: ONDANSETRON ODT 4 MG TAB PO SCH ×2 (07:59→16:39)
[2019-08-20] MEDS: TACROLIMUS 1 MG CAP PO SCH (08:00)
[2019-08-20] MEDS: METOPROLOL TARTRATE 25 MG TAB PO SCH (08:00)
[2019-08-20] MEDS: CLOPIDOGREL 75 MG TAB PO SCH (08:00)
[2019-08-20] MEDS: PANTOPRAZOLE 40 MG TABLET PO SCH (08:00)
[2019-08-20] MEDS: hydrALAZINE HCL 25 MG TAB PO SCH ×2 (08:00→16:39)
[2019-08-20] MEDS: SERTRALINE 100 MG TAB PO SCH (08:00)
[2019-08-20] MEDS: SODIUM BICARBONATE TAB 650 MG TAB PO SCH ×2 (08:00→16:39)
[2019-08-20 08:06] LABS: Calcium 8.5 mg/dL (8.4-10.2); Magnesium 1.7 mg/dL (1.6-2.3); Potassium 4.8 mmol/L (3.5-5.1)
[2019-08-20 08:20] VITALS: TEMP 98
[2019-08-20] MEDS: SODIUM CHLORIDE 0.9% 1,000 ML IV SCH (09:19)
[2019-08-20 11:52] LABS: Glucose,Whole Blood 135 mg/dL (75-99)
[2019-08-20] MEDS: CEFEPIME 2 GM in SODIUM CHLORIDE 0.9% 100 ML IVPB SCH (13:55)
--- NOTE | 2019-08-20 14:04 | PN ---
PROGRESS NOTE DATE OF SERVICE: 08/20/2019 REASON FOR FOLLOWUP: Transplant nephritis. INTERVAL HISTORY: The patient is currently afebrile. The patient is breathing comfortably. Denies further nausea, no vomiting. No chest pain, shortness of breath or cough. No abdominal pain. Wants to go home. On examination, blood pressure 135/69, with a pulse of 90, temperature 98. He is 98% on room air. General description: The patient is a middle-aged male lying in bed in no distress. Respiratory system: Unlabored breathing, clear to auscultation anteriorly. Heart S1, S2. Regular rate and rhythm. Abdomen soft, no tenderness. LABS: No new labs have been obtained today. DIAGNOSTIC IMPRESSION AND PLAN: Patient with transplant nephritis in this patient who did have evidence of hydronephrosis and distention of the bladder with urinary outflow obstruction, status post Bustos catheter placement. Plan at this time is to finish therapy with short course of oral Ceftin and monitor clinical course closely. MMODL / HERMANN: [id number] /
--- NOTE | 2019-08-20 14:07 | PN ---
PROGRESS NOTE Patient is seen for followup for acute kidney injury and post-transplant care. The patient was noted to have transplant hydro and a Bustos catheter was placed yesterday however it appears that the patient's will be taking him home today. I have encouraged to follow up as outpatient with Urology. He is already maintained on Flomax. Serum creatinine is close to baseline, although improved from initial admission. Expect further improvement with relief of obstruction as well. PHYSICAL EXAMINATION: On examination, blood pressure was 135/69, heart rate 59 per minute, patient is afebrile. Examination of the heart S1, S2. Examination of the lungs, bilateral breath sounds are heard. Abdomen is soft, nontender. Examination of lower extremities shows no significant edema. [employer] FI[employer] PERSON exam grossly intact. Labs show sodium 138, potassium 4.8, chloride 110, BUN 34, creatinine 2.35. ASSESSMENT: 1. Acute kidney injury prerenal as well as component of urine retention. Mild hydro in the transplanted kidney currently with indwelling Bustos catheter. Patient is advised to follow up with Urology as outpatient. Continue with the Flomax. 2. Volume depletion on admission now improved. 3. Diarrhea. It has improved. 4. Fever with evidence of pyuria, status post antibiotics. Culture showing no growth. 5. Status post donor kidney transplant in November of 2010, Prograf level was elevated and it was decreased to 3 mg a.m. and 2 mg at p.m. Repeat level needs to be done as outpatient. PLAN: Follow up with Urology post discharge. Continue with Flomax. Repeat tacrolimus level as outpatient. MMODL / IJN: [id number] /
--- NOTE | 2019-08-20 15:29 | P.DS ---
Providers Date of admission: 08/12/19 12:20 Expected date of discharge: 08/20/19 Attending physician: Julio Rodriguez MD Consults: 08/12/19 20:17 Consult Physician Routine Consulting Provider: Wilian Cast Consult Reason/Comments: arf Do you want consulting provider notified?: Yes 08/12/19 20:18 Consult Physician Routine Consulting Provider: Michele Loredo Consult Reason/Comments: sepsis Do you want consulting provider notified?: Yes 08/18/19 22:12 Consult Physician Routine Consulting Provider: Darryn Luong Consult Reason/Comments: one kidney Do you want consulting provider notified?: Yes, Notify in am Primary care physician: [facility] Hospital Course: Final diagnosis Acute sepsis with possible left lower lobe pneumonia, possibly gram-negative, present on admission Possible acute urinary tract infection with sepsis, present on admission Rule out bladder obstruction and transplant nephritis Hydronephrosis of the right transplanted kidney is noted on CT Nausea, vomiting, diarrhea with possible acute gastroenteritis, present on admission Thrombocytopenia Diabetes mellitus type 2, uncontrolled with hyper and hypoglycemia Anemia, normocytic anemia of chronic disease Acute renal failure with acute tubular necrosis Chronic kidney disease, stage III baseline History of renal transplant History of renal disease, on hemodialysis Hypomagnesemia Change in mental status, metabolic encephalopathy, acute on chronic Hypertension Hyperlipidemia History of gastroparesis No code, no CPR, no vent Discharge disposition Patient is being discharged in a stable condition with guarded prognosis to home. Patient will follow-up with [facility]dy and the [facility] upon discharge. Patient also instructed to follow-up with urology in the outpatient setting upon discharge. Patient will continue with a short course of oral antibiotics in the form of Ceftin 250 mg twice daily for the next 7 days. Total time taken is 35 minutes. History of present illness This is an 64-year-old male who was recently admitted with acute sepsis and was also found to have left lower lobe pneumonia with uncontrolled blood sugars and was being closely monitored. Multiple medical consultations following. Patient's creatinine continues to be elevated although is slightly trending down. Patient provided prescriptions for repeat blood work in a few days to monitor closely. Patient also instructed to follow-up with nephrology in the outpatient setting along with urology as patient was having some urinary retention and mild hydronephrosis noted on the CT of the right transplanted kidney. Urology recommending indwelling Bullock catheter for at least 4-5 days upon discharge with follow-up in the clinic. is refusing and stating insurance will not approve a urology visit in the outpatient setting. Dr. Luong notified and is agreeable with self-catheterization every 4 hours in the outpatient setting to avoid retention. is agreeable with this. Patient will follow-up with the [place] clinic upon discharge. Infectious disease was following. Patient was treated with antibiotics in the form of IV Zosyn and will be transitioned oral Ceftin 250 mg twice daily for the next 7 days and then may discontinue. Patient also instructed to continue monitoring blood sugars before meals at bedtime and treat accordingly. Patient to also continue with long-acting insulin. Currently no reports of chest pain, shortness of breath, or palpitations. Patient is afebrile. No reports of nausea or vomiting and patient is tolerating diet. Guarded prognosis. On exam vital signs are stable. Temp is 98.0F, pulse is 59, respirations are 14, blood pressure is 135/69, oxygen saturation is 98% on room air. Cardio S1, S2 are muffled. Respiratory shows diminished breath sounds at the bases with a few scattered rhonchi noted. Abdomen is soft and nontender. Nervous system shows no focal deficits. Please refer to medication reconciliation sheet for a list of medications. Patient Condition at Discharge: Fair Plan - Discharge Summary Discharge Rx Participant: No New Discharge Prescriptions: New Tamsulosin [Flomax] 0.4 mg PO PC-BRKFST 30 Days #30 cap.er.24h Insulin Detemir (Levemir) [Levemir] 15 unit SQ HS 30 Days #2 syr Magnesium Oxide 400 mg PO DAILY 30 Days #30 tablet Tacrolimus [Prograf] 2 mg PO HS 30 Days #60 cap Cefuroxime [Ceftin] 250 mg PO BID 7 Days #14 tab Continue Aspirin 81 mg PO DAILY #30 chew Atorvastatin [Lipitor] 80 mg PO HS #30 tab Mycophenolate Sodium [Mycophenolic Acid] 720 mg PO BID Levothyroxine Sodium [Synthroid] 50 mcg PO DAILY Tacrolimus [Prograf] 3 mg PO Q12H Insulin Aspart [NovoLOG Flexpen] 8 unit SQ AC-BRKFST hydrALAZINE HCL [Apresoline] 25 mg PO TID 30 Days #90 tab amLODIPine [Norvasc] 5 mg PO HS 30 Days #30 tab Clopidogrel [Plavix] 75 mg PO DAILY 30 Days #30 tab Sodium Bicarbonate Tab 650 mg PO BID 30 Days #60 tab Metoprolol Tartrate [Lopressor] 25 mg PO BID Insulin Aspart [NovoLOG Flexpen] 3 - 4 units SQ AC-BID Albuterol Inhaler [Ventolin Hfa Inhaler] 1 - 2 puff INHALATION RT-Q6H PRN PRN Reason: Shortness Of Breath Ondansetron Odt [Zofran ODT] 4 mg PO Q8H PRN PRN Reason: Nausea And Vomiting Pantoprazole Sodium [Protonix] 40 mg PO BID Sertraline HCl [Zoloft] 100 mg PO DAILY Discharge Medication List Aspirin 81 mg PO DAILY #30 chew 09/27/15 [Rx] Atorvastatin [Lipitor] 80 mg PO HS #30 tab 09/27/15 [Rx] Levothyroxine Sodium [Synthroid] 50 mcg PO DAILY 03/13/17 [History] Mycophenolate Sodium [Mycophenolic Acid] 720 mg PO BID 03/13/17 [History] Tacrolimus [Prograf] 3 mg PO Q12H 12/17/17 [History] Insulin Aspart [NovoLOG Flexpen] 8 unit SQ AC-BRKFST 01/17/18 [History] Clopidogrel [Plavix] 75 mg PO DAILY 30 Days #30 tab 01/22/19 [Rx] Sodium Bicarbonate Tab 650 mg PO BID 30 Days #60 tab 01/22/19 [Rx] amLODIPine [Norvasc] 5 mg PO HS 30 Days #30 tab 01/22/19 [Rx] hydrALAZINE HCL [Apresoline] 25 mg PO TID 30 Days #90 tab 01/22/19 [Rx] Metoprolol Tartrate [Lopressor] 25 mg PO BID 03/20/19 [History] Insulin Aspart [NovoLOG Flexpen] 3 - 4 units SQ AC-BID 04/01/19 [History] Albuterol Inhaler [Ventolin Hfa Inhaler] 1 - 2 puff INHALATION RT-Q6H PRN 08/12/19 [History] Ondansetron Odt [Zofran ODT] 4 mg PO Q8H PRN 08/12/19 [History] Pantoprazole Sodium [Protonix] 40 mg PO BID 08/12/19 [History] Sertraline HCl [Zoloft] 100 mg PO DAILY 08/12/19 [History] Cefuroxime [Ceftin] 250 mg PO BID 7 Days #14 tab 08/20/19 [Rx] Insulin Detemir (Levemir) [Levemir] 15 unit SQ HS 30 Days #2 syr 08/20/19 [Rx] Magnesium Oxide 400 mg PO DAILY 30 Days #30 tablet 08/20/19 [Rx] Tacrolimus [Prograf] 2 mg PO HS 30 Days #60 cap 08/20/19 [Rx] Tamsulosin [Flomax] 0.4 mg PO PC-BRKFST 30 Days #30 cap.er.24h 08/20/19 [Rx] Follow up Appointment(s)/Referral(s): Zina Florez PAC [REFERRING] - 09/01/19 1:30 pm (f/u nausea/vomiting and consider scheduling outpatient gastric emptying test) Darryn Luong MD [STAFF PHYSICIAN] - 08/28/19 9:20 am (to eval bullock catheter) [facility]Clinic [Primary Care Provider] - 08/26/19 10:30 am (this will be a virtual appointment) Ambulatory/Diagnostic Orders: Basic Metabolic Panel [LAB.AMB] Time Frame: 2 Days, Location: None Selected Patient Instructions/Handouts: How to Catheterize Yourself (Man) (GEN), Community Acquired Pneumonia (DC), Hydronephrosis (DC) Activity/Diet/Wound Care/Special Instructions: Urologist discharge instructions - patient to self-catheterize 4 times a day at home. Dr Luong follow up appointment made 08/28/2019. Please obtain script for Outpatient physical therapy from [place] Doctor Follow up with GI for gastric emptying study outpatient. Activity as tolerated Continue monitoring blood sugars before meals at bedtime and keep a diary for p rimary care follow-up Continue antibiotics until finished Repeat labs in 2-3 days Check Tacromilus levels as outpatient Discharge Disposition: HOME SELF-CARE
[2019-08-20 15:56] VITALS: BP 159/76; PULSE 65; RESP 16
== END 2019-08-20 16:40 | disposition home or self-care (01) | DRG 871 ==
LOC: EC 09:44 → 6NMEDSUR 12:20 → 5NMEDONC 17:55 → 4SSUR 08-13 03:47
PROVIDERS: ADMIT Internal Medicine; ATTEND Internal Medicine
DX: A41.59 Other Gram-negative sepsis (principal); N17.0 Acute kidney failure with tubular necrosis; J15.6 Pneumonia due to other Gram-negative bacteria; G93.41 Metabolic encephalopathy; Z94.0 Kidney transplant status; I12.0 Hypertensive chronic kidney disease with stage 5 chronic kidney disease or end stage renal disease; E87.2 Acidosis; N13.6 Pyonephrosis; E78.5 Hyperlipidemia, unspecified; F03.90 Unspecified dementia, unspecified severity, without behavioral disturbance, psychotic disturbance, mood disturbance, and anxiety; H91.90 Unspecified hearing loss, unspecified ear; D63.1 Anemia in chronic kidney disease; K21.9 Gastro-esophageal reflux disease without esophagitis; E11.22 Type 2 diabetes mellitus with diabetic chronic kidney disease; E11.319 Type 2 diabetes mellitus with unspecified diabetic retinopathy without macular edema; K52.9 Noninfective gastroenteritis and colitis, unspecified; Z66 Do not resuscitate; E11.41 Type 2 diabetes mellitus with diabetic mononeuropathy; E11.43 Type 2 diabetes mellitus with diabetic autonomic (poly)neuropathy; E11.649 Type 2 diabetes mellitus with hypoglycemia without coma; E11.65 Type 2 diabetes mellitus with hyperglycemia; N18.3 Chronic kidney disease, stage 3 (moderate); F32.9 Major depressive disorder, single episode, unspecified; D69.6 Thrombocytopenia, unspecified; R65.20 Severe sepsis without septic shock; Z20.828 Contact with and (suspected) exposure to other viral communicable diseases; E83.42 Hypomagnesemia; R32 Unspecified urinary incontinence; E86.9 Volume depletion, unspecified; H54.7 Unspecified visual loss; I25.10 Atherosclerotic heart disease of native coronary artery without angina pectoris; Z79.02 Long term (current) use of antithrombotics/antiplatelets; Z79.4 Long term (current) use of insulin; Z79.82 Long term (current) use of aspirin; Z79.890 Hormone replacement therapy; Z79.899 Other long term (current) drug therapy; Z86.73 Personal history of transient ischemic attack (TIA), and cerebral infarction without residual deficits; Z87.440 Personal history of urinary (tract) infections; I25.2 Old myocardial infarction; Z95.5 Presence of coronary angioplasty implant and graft; Z99.2 Dependence on renal dialysis; Z87.891 Personal history of nicotine dependence; Z83.3 Family history of diabetes mellitus; Z82.49 Family history of ischemic heart disease and other diseases of the circulatory system; Z81.8 Family history of other mental and behavioral disorders; Z85.828 Personal history of other malignant neoplasm of skin; Z86.19 Personal history of other infectious and parasitic diseases; Z98.890 Other specified postprocedural states
CPT/HCPCS: 36415; 71045; 71046; 74176; 74230; 76700; 80048; 80053; 80197; 81001; 82009; 82803; 83036; 83605; 83690; 83735; 85025; 87040; 87045; 87046; 87086; 87324; 96361; 96365; 96366; 96367; 96375; 99285

== ENCOUNTER 2019-10-31 10:59 | Emergency (ER) | payer OTHER, MEDICARE ==
[2019-10-31 11:13] VITALS: RESP 18
[2019-10-31] MEDS ORDERED: HYDROmorphone 1 MG/ML 1 ML SYRINGE IVP STA (11:31)
[2019-10-31] MEDS ORDERED: hydrALAZINE HCL 20 MG/ML 1 ML VIAL IVP STA (11:31)
[2019-10-31] MEDS ORDERED: ONDANSETRON 4 MG/2 ML VIAL IVP STA ×2 (11:31→12:42)
[2019-10-31] MEDS ORDERED: SODIUM CHLORIDE 0.9% 500 ML 500 ML IV ONE (11:31)
[2019-10-31 12:09] LABS: Basophils % (A) 0 %; Eosinophils # (A) 0.1 k/uL (0-0.7); Eosinophils % (A) 1 %; HCT 40.3 % (39.0-53.0); HGB 12.8 gm/dL (13.0-17.5); Hypochromasia Slight; Lymphocytes # (A) 0.8 k/uL (1.0-4.8); Lymphocytes % (A) 8 %; MCH 29.4 pg (25.0-35.0); MCHC 31.8 g/dL (31.0-37.0); MCV 92.4 fL (80.0-100.0); Mean Platelet Volume 8.7; Monocytes # (A) 0.5 k/uL (0-1.0); Monocytes % (A) 5 %; Neutrophils # (A) 8.5 k/uL (1.3-7.7); Neutrophils % (A) 85 %; Platelet Count 191 k/uL (150-450); RBC 4.36 m/uL (4.30-5.90); RDW 13.8 % (11.5-15.5); WBC 10.1 k/uL (3.8-10.6)
--- NOTE | 2019-10-31 13:02 | CT ---
EXAMINATION TYPE: CT ChestAbdPelvis wo con DATE OF EXAM: 10/31/2019 COMPARISON: 08/17/2019 HISTORY: Fall, severe Lt sided pain CT DLP: 606.9 mGycm CONTRAST: Contrast enhanced Trauma CT of the Chest, Abdomen and Pelvis is performed , without contrast. The lac k of contrast does limit evaluation. Chest: LUNGS: There is no evidence for pneumothorax. The lungs are clear and free of focal contusion or ate lectasis. No pleural effusion MEDIASTINUM: Thoracic aorta is of normal caliber. Atheromatous changes seen. No mediastinal fluid or blood. No pericardial fluid or cardia abnormality. The heart is enlarged. HILAR STRUCTURES: No evidence for mass. No hilar adenopathy is appreciated. OTHER: No significant abnormality. OSSEOUS: No acute fracture seen. There are healed fractures of the left-sided ribs. CT ABDOMEN AND PELVIS FINDINGS: LIVER/GB: No focal laceration, contusion or subcapsular hemorrhage. No calcified gallstones. No s pace occupying hepatic lesion. Biliary tree is of normal caliber. PANCREAS: No evidence for transection. No inflammation. No distinct mass. SPLEEN: No focal laceration, contusion or subcapsular hemorrhage. ADRENALS: No hemorrhage. No nodule. No thickening. KIDNEYS/BLADDER: Right-sided pelvic kidney appears to be grossly unremarkable. Urinary bladder wall t hickening may reflect underlying cystitis. The kidneys are atrophic. Renal vascular calcifications no elyssa. Simple cyst upper pole left kidney. BOWEL: Bowel is intact. No evidence for pneumoperitoneum. GENITAL ORGANS: No gross abnormality. LYMPH NODES: No greater than 1cm abdominal or pelvic lymph nodes areappreciated. AORTA: No traumatic aortic injury visualized. OSSEOUS STRUCTURES: No displaced fracture seen. OTHER: No evidence for hemoperitoneum. IMPRESSION: 1. No evidence for traumatic injury to the chest. 2. No evidence for traumatic injury to the abdomen or pelvis.
[2019-10-31 13:20] LABS: Calcium 8.9 mg/dL (8.4-10.2); Potassium 4.9 mmol/L (3.5-5.1); Total Bilirubin 0.7 mg/dL (0.2-1.3); Total Protein 6.1 g/dL (6.3-8.2)
--- NOTE | 2019-10-31 13:21 | ED ---
Fall HPI - General Chief Complaint: Fall Stated Complaint: fall, rib pain Time Seen by Provider: 10/31/19 11:19 Source: patient, family, RN notes reviewed Mode of arrival: ambulatory Limitations: no limitations - History of Present Illness Initial Comments: 64-year-old male presents emergency Department chief complaint of left-sided rib pain. Patient states that he had a fall this morning. Patient's had prior rib fractures. Patient states that there is pain with any range of motion. He denies any head injury no loss conscious. Patient states that he was unable take his blood pressure medications this morning shows blood pressure is elevated. Patient has no mental abdominal pain denies any all complaining, hypertension denies any difficulty ambulate bothering him causing pain in his ribs. Patient states pain is on his left side. He does not have shortness of breath at baseline. Patient is brought to emergency department by - Related Data Home Medications Medication Instructions Recorded Confirmed Levothyroxine Sodium [Synthroid] 50 mcg PO DAILY 03/13/17 10/31/19 Mycophenolate Sodium [Mycophenolic 720 mg PO BID 03/13/17 10/31/19 Acid] Metoprolol Tartrate [Lopressor] 25 mg PO BID 03/20/19 10/31/19 Insulin Aspart [NovoLOG Flexpen] See Protocol SQ AC-BID 04/01/19 10/31/19 Albuterol Inhaler [Ventolin Hfa 1 - 2 puff INHALATION RT-Q6H PRN 08/12/19 10/31/19 Inhaler] Ondansetron Odt [Zofran ODT] 4 mg PO Q8H PRN 08/12/19 10/31/19 Pantoprazole Sodium [Protonix] 40 mg PO BID 08/12/19 10/31/19 Sertraline HCl [Zoloft] 100 mg PO DAILY 08/12/19 10/31/19 Tacrolimus [Prograf] 2 mg PO BID 10/31/19 10/31/19 Previous Rx's Medication Instructions Recorded Aspirin 81 mg PO DAILY #30 chew 09/27/15 Atorvastatin [Lipitor] 80 mg PO HS #30 tab 09/27/15 Clopidogrel [Plavix] 75 mg PO DAILY 30 Days #30 tab 01/22/19 Sodium Bicarbonate Tab 650 mg PO BID 30 Days #60 tab 01/22/19 amLODIPine [Norvasc] 5 mg PO HS 30 Days #30 tab 01/22/19 hydrALAZINE HCL [Apresoline] 25 mg PO TID 30 Days #90 tab 01/22/19 Insulin Detemir (Levemir) [Levemir] 15 unit SQ HS 30 Days #2 syr 08/20/19 Magnesium Oxide 400 mg PO DAILY 30 Days #30 tablet 08/20/19 Tamsulosin [Flomax] 0.4 mg PO PC-BRKFST 30 Days #30 08/20/19 cap.er.24h HYDROcodone/APAP 10-325MG [[place] 1 tab PO Q6HR PRN 3 Days #12 tab 10/31/19 10-325] Ondansetron Odt [Zofran Odt] 4 mg PO Q8HR PRN #10 tab 10/31/19 Allergies Allergy/AdvReac Type Severity Reaction Status Date / Time No Known Allergies Allergy Verified 10/31/19 13:08 Review of Systems ROS Statement: Those systems with pertinent positive or pertinent negative responses have been documented in the HPI. ROS Other: All systems not noted in ROS Statement are negative. Past Medical History Past Medical History: Coronary Artery Disease (CAD), Cancer, Chest Pain / Angina , CVA/TIA, Dementia, Diabetes Mellitus, Dialysis, Eye Disorder, GERD/Reflux, GI Bleed, Hearing Disorder / Deafness, Hyperlipidemia, Hypertension, Myocardial Infarction (ID), Pneumonia, Renal Disease, Thyroid Disorder Additional Past Medical History / Comment(s): IDDM type I, neuropathy bilateral legs/feet, retinopathy bilaterally and is nearly blind, gastroparesis, ESRD with past hemo/peritoneal dialysis and in 2010 received kidney transplant, CKD stage II or III, recurrent UTIs, UTI with sepsis, does not completely empty bladder- self caths on occasion, incontinent of urine at times, TIAs, 2013 fall with multiple fractured ribs, vascular dementia, skin cancer with removal, upper GI bleed, hypomagnesemia, past medical record notes CDiff 3 times in the past Last Myocardial Infarction Date:: 01/2019 History of Any Multi-Drug Resistant Organisms: C-DIFF Date of last positivie culture/infection: "years ago" MDRO Source:: stool Past Surgical History: Heart Catheterization, Heart Catheterization With Stent Additional Past Surgical History / Comment(s): 01/2019 cardiac cath tx medically, PCI with stents in 2012 and 2015, kidney transplant November 2010, patient has an AV fistula in the left upper extremity, colonoscopy, skin cancer removal , bilateral eye retinal bleeds with surgery, teeth extractions. Past Anesthesia/Blood Transfusion Reactions: No Reported Reaction Date of Last Stent Placement:: 09/2015 Past Psychological History: Depression Past Alcohol Use History: None Reported Past Drug Use History: None Reported - Past Family History Brother(s) Additional Family Medical History / Comment(s): Brother had depression and c omitted suicide. Father Family Medical History: Diabetes Mellitus Additional Family Medical History / Comment(s): Father lived into his 90s. Mother Family Medical History: Myocardial Infarction (ID) Additional Family Medical History / Comment(s): Mother of a ID at the age of 57yrs. General Exam Limitations: no limitations General appearance: alert, in no apparent distress Head exam: Present: atraumatic, normocephalic, normal inspection Eye exam: Present: normal appearance, PERRL, EOMI. Absent: scleral icterus, conjunctival injection, periorbital swelling ENT exam: Present: normal exam, normal oropharynx, mucous membranes moist Neck exam: Present: normal inspection, full ROM. Absent: tenderness, meningismus, lymphadenopathy Respiratory exam: Present: normal lung sounds bilaterally, chest wall tenderness (Moderate to severe left-sided rib tenderness). Absent: respiratory distress, wheezes, rales, rhonchi, stridor Cardiovascular Exam: Present: regular rate, normal rhythm, normal heart sounds. Absent: systolic murmur, diastolic murmur, rubs, gallop, clicks GI/Abdominal exam: Present: soft, normal bowel sounds. Absent: distended, tenderness, guarding, rebound, rigid Extremities exam: Present: other (Lower extremity strength equal bilaterally, neurovascular intact) Back exam: Present: full ROM (Moderate discomfort left sided ribs with range of motion), tenderness, paraspinal tenderness. Absent: vertebral tenderness Neurological exam: Present: alert, oriented X3, CN II-XII intact, reflexes normal. Absent: motor sensory deficit Skin exam: Present: warm, dry, intact, normal color. Absent: rash Course Vital Signs 10/31/19 10/31/19 10/31/19 11:08 12:12 12:23 Temperature 98.0 F Pulse Rate 104 H Respiratory 18 Rate Blood Pressure 232/132 198/107 147/75 O2 Sat by Pulse 100 Oximetry Medical Decision Making - Medical Decision Making Labs were reviewed patient is at baseline has a history of chronic renal failure. Patient CT reviewed no definite fractures no pneumothorax no intra-abdominal process. Patient's pain is improved, blood pressure is improved. Patient discharged with pain medication return parameters were discussed. - Lab Data Result diagrams: 10/31/19 11:35 10/31/19 12:52 Lab Results 10/31/19 10/31/19 Range/Units 11:35 12:52 WBC 10.1 (3.8-10.6) k/uL RBC 4.36 (4.30-5.90) m/uL Hgb 12.8 L (13.0-17.5) gm/dL Hct 40.3 (39.0-53.0) % MCV 92.4 (80.0-100.0) fL MCH 29.4 (25.0-35.0) pg MCHC 31.8 (31.0-37.0) g/dL RDW 13.8 (11.5-15.5) % Plt Count 191 (150-450) k/uL Neutrophils % 85 % Lymphocytes % 8 % Monocytes % 5 % Eosinophils % 1 % Basophils % 0 % Neutrophils # 8.5 H (1.3-7.7) k/uL Lymphocytes # 0.8 L (1.0-4.8) k/uL Monocytes # 0.5 (0-1.0) k/uL Eosinophils # 0.1 (0-0.7) k/uL Basophils # 0.0 (0-0.2) k/uL Hypochromasia Slight Sodium 138 (137-145) mmol/L Potassium 4.9 (3.5-5.1) mmol/L Chloride 106 (98-107) mmol/L Carbon Dioxide 21 L (22-30) mmol/L Anion Gap 11 mmol/L BUN 31 H (9-20) mg/dL Creatinine 2.62 H (0.66-1.25) mg/dL Est GFR (CKD-EPI)AfAm 29 (>60 ml/min/1.73 sqM) Est GFR (CKD-EPI)NonAf 25 (>60 ml/min/1.73 sqM) Glucose 205 H (74-99) mg/dL Calcium 8.9 (8.4-10.2) mg/dL Total Bilirubin 0.7 (0.2-1.3) mg/dL AST 16 L (17-59) U/L ALT 11 (4-49) U/L Alkaline Phosphatase 115 (38-126) U/L Total Protein 6.1 L (6.3-8.2) g/dL Albumin 4.0 (3.5-5.0) g/dL Disposition Clinical Impression: Fall, Contusion of rib on left side Disposition: HOME SELF-CARE Condition: Stable Instructions (If sedation given, give patient instructions): Rib Contusion (ED) Additional Instructions: Please return to the Emergency Department if symptoms worsen or any other concerns. Prescriptions: HYDROcodone/APAP 10-325MG [[place] 10-325] 1 tab PO Q6HR PRN 3 Days #12 tab PRN Reason: Pain Ondansetron Odt [Zofran Odt] 4 mg PO Q8HR PRN #10 tab PRN Reason: Nausea Is patient prescribed a controlled substance at d/c from ED?: Yes When asked, does pt state using other controlled substances?: No If prescribed controlled substance>3 days was MAPS reviewed?: Prescribed <3 Days If opioid is for acute pain is fill amount 7 days or less?: Yes If Rx opioid, was Start Talking consent form obtained?: Yes Referrals: [facility],Clinic [Primary Care Provider] - 1-2 days Time of Disposition: 13:32
[2019-10-31] MEDS ORDERED: METOCLOPRAMIDE 5 MG/ML 2 ML VIAL IVP STA (13:30)
[2019-10-31] MEDS ORDERED: diphenhydrAMINE 50 MG/ML 1 ML VIAL IVP STA (13:30)
[2019-10-31 13:56] VITALS: BP 168/92; PULSE 110; TEMP 98
== END 2019-10-31 13:50 | disposition home or self-care (01) ==
LOC: EC 10:59
DX: S20.212A Contusion of left front wall of thorax, initial encounter (principal); F32.9 Major depressive disorder, single episode, unspecified; N18.3 Chronic kidney disease, stage 3 (moderate); I12.9 Hypertensive chronic kidney disease with stage 1 through stage 4 chronic kidney disease, or unspecified chronic kidney disease; E10.40 Type 1 diabetes mellitus with diabetic neuropathy, unspecified; K21.9 Gastro-esophageal reflux disease without esophagitis; E78.5 Hyperlipidemia, unspecified; I25.2 Old myocardial infarction; E07.9 Disorder of thyroid, unspecified; Z79.4 Long term (current) use of insulin; Z79.890 Hormone replacement therapy; Z79.899 Other long term (current) drug therapy; Z95.5 Presence of coronary angioplasty implant and graft; Z85.828 Personal history of other malignant neoplasm of skin; Z94.0 Kidney transplant status; Z86.69 Personal history of other diseases of the nervous system and sense organs; W18.30XA Fall on same level, unspecified, initial encounter
CPT/HCPCS: 36415; 80053; 85025; 71250; 74176; 99284; 96374; 96375 ×4; 96376; 96361; J0360; J1200; J2765; J2405; J1170

== ENCOUNTER 2019-12-31 12:27 | Inpatient (IN) | payer OTHER, MEDICARE ==
[2019-12-31] MEDS ORDERED: SODIUM CHLORIDE 0.9% 500 ML 500 ML IV STA (13:23)
--- NOTE | 2019-12-31 13:55 | ED ---
General Adult HPI - General Chief complaint: Nausea/Vomiting/Diarrhea Stated complaint: no appetite/fever/vomiting Time Seen by Provider: 12/31/19 12:45 Source: patient, RN notes reviewed, old records reviewed Mode of arrival: ambulatory Limitations: no limitations - History of Present Illness Initial comments: 64-year-old male patient who has history of vascular dementia, coronary artery disease, end-stage renal disease status post kidney transplant in 2009 to ED for evaluation. is primary history provider. Reports patient having nausea and vomiting as well as increased blood sugars last couple of days. Patient has also had a cough. Patient did have COVID about 3 weeks ago and has since recovered. She for the patient had temperature of 99.9 yesterday. Denies any other complaints. Systemic: Pt denies fatigue, fever/chills, rash. Pt denies weakness, night sweats, weight loss. Neuro: Pt denies headache, visual disturbances, syncope or pre-syncope. HEENT: Pt denies ocular discharge or irritation, otalgia, rhinorrhea, pharyngitis or notable lymphadenopathy. Cardiopulmonary: Pt denies chest pain, SOB, heart palpitations, dyspnea on exertion. Abdominal/GI: Pt denies abdominal pain : Pt denies dysuria, burning w/ urination, frequency/urgency. Denies new onset urinary or bowel incontinence. MSK: Pt denies myalgia, loss of strength or function in extremities. Neuro: Pt denies new onset weakness, paresthesias. - Related Data Home Medications Medication Instructions Recorded Confirmed Levothyroxine Sodium [Synthroid] 50 mcg PO DAILY 03/13/17 10/31/19 Mycophenolate Sodium [Mycophenolic 720 mg PO BID 03/13/17 10/31/19 Acid] Metoprolol Tartrate [Lopressor] 25 mg PO BID 03/20/19 10/31/19 Insulin Aspart [NovoLOG Flexpen] See Protocol SQ AC-BID 04/01/19 10/31/19 Albuterol Inhaler [Ventolin Hfa 1 - 2 puff INHALATION RT-Q6H PRN 08/12/19 10/31/19 Inhaler] Ondansetron Odt [Zofran ODT] 4 mg PO Q8H PRN 08/12/19 10/31/19 Pantoprazole Sodium [Protonix] 40 mg PO BID 08/12/19 10/31/19 Sertraline HCl [Zoloft] 100 mg PO DAILY 08/12/19 10/31/19 Tacrolimus [Prograf] 2 mg PO BID 10/31/19 10/31/19 Previous Rx's Medication Instructions Recorded Aspirin 81 mg PO DAILY #30 chew 09/27/15 Atorvastatin [Lipitor] 80 mg PO HS #30 tab 09/27/15 Clopidogrel [Plavix] 75 mg PO DAILY 30 Days #30 tab 01/22/19 Sodium Bicarbonate Tab 650 mg PO BID 30 Days #60 tab 01/22/19 amLODIPine [Norvasc] 5 mg PO HS 30 Days #30 tab 01/22/19 hydrALAZINE HCL [Apresoline] 25 mg PO TID 30 Days #90 tab 01/22/19 Insulin Detemir (Levemir) [Levemir] 15 unit SQ HS 30 Days #2 syr 08/20/19 Magnesium Oxide 400 mg PO DAILY 30 Days #30 tablet 08/20/19 Tamsulosin [Flomax] 0.4 mg PO PC-BRKFST 30 Days #30 08/20/19 cap.er.24h HYDROcodone/APAP 10-325MG [[place] 1 tab PO Q6HR PRN 3 Days #12 tab 10/31/19 10-325] Ondansetron Odt [Zofran Odt] 4 mg PO Q8HR PRN #10 tab 10/31/19 Allergies Allergy/AdvReac Type Severity Reaction Status Date / Time No Known Allergies Allergy Verified 12/31/19 12:43 Review of Systems ROS Statement: Those systems with pertinent positive or pertinent negative responses have been documented in the HPI. ROS Other: All systems not noted in ROS Statement are negative. Past Medical History Past Medical History: Coronary Artery Disease (CAD), Cancer, Chest Pain / Angina, CVA/TIA, Dementia, Diabetes Mellitus, Dialysis, Eye Disorder, GERD/Reflux, GI Bleed, Hearing Disorder / Deafness, Hyperlipidemia, Hypertension, Myocardial Infarction (GA), Pneumonia, Renal Disease, Thyroid Disorder Additional Past Medical History / Comment(s): IDDM type I, neuropathy bilateral legs/feet, retinopathy bilaterally and is nearly blind, gastroparesis, ESRD with past hemo/peritoneal dialysis and in 2010 received kidney transplant, CKD stage II or III, recurrent UTIs, UTI with sepsis, does not completely empty bladder- self caths on occasion, incontinent of urine at times, TIAs, 2013 fall with multiple fractured ribs, vascular dementia, skin cancer with removal, upper GI bleed, hypomagnesemia, past medical record notes CDiff 3 times in the past (2017 last +) Last Myocardial Infarction Date:: 01/2019 History of Any Multi-Drug Resistant Organisms: None Reported Date of last positivie culture/infection: "years ago" MDRO Source:: stool Past Surgical History: Heart Catheterization, Heart Catheterization With Stent Additional Past Surgical History / Comment(s): 01/2019 cardiac cath tx medically, PCI with stents in 2012 and 2015, kidney transplant November 2010, patient has an AV fistula in the left upper extremity, colonoscopy, skin cancer removal , bilateral eye retinal bleeds with surgery, teeth extractions. Past Anesthesia/Blood Transfusion Reactions: No Reported Reaction Date of Last Stent Placement:: 09/2015 Past Psychological History: Depression Smoking Status: Former smoker Past Alcohol Use History: None Reported Past Drug Use History: None Reported - Past Family History Brother(s) Additional Family Medical History / Comment(s): Brother had depression and c omitted suicide. Father Family Medical History: Diabetes Mellitus Additional Family Medical History / Comment(s): Father lived into his 90s. Mother Family Medical History: Myocardial Infarction (GA) Additional Family Medical History / Comment(s): Mother of a GA at the age of 57yrs. General Exam - General Exam Comments Initial Comments: Constitutional: NAD, AOX3, Pt has pleasant affect. HEENT: NC/AT, trachea midline, neck supple, no lymphadenopathy. External ears appear normal, without discharge. Mucous membranes moist. Eyes PERRLA, EOM intact. There is no scleral icterus. No pallor noted. Cardiopulmonary: RRR, no murmurs, rubs or gallops, no JVD noted. Lungs CTAB in anterior and posterior neri. No peripheral edema. Abdominal exam: Abdomen soft and non-distended. Abdomen non-tender to palpation in all 4 quadrants. Bowel sounds active in LLQ. No hepatosplenomegaly. No ecchymosis Neuro: CN II-XII grossly intact. No nuchal rigidity. No raccon eyes, no brito sign, no hemotympanum. No cervical spinal tenderness. MSK: No posterior calf tenderness bilaterally, homans sign negative bilaterally. Posterior tibialis and radial pulse +2 bilaterally. Sensation intact in upper and lower extremities. Full active ROM in upper and lower extremities, 5/5 stregnth. Limitations: no limitations Course Vital Signs 12/31/19 12/31/19 12:38 16:33 Temperature 99.6 F 97.6 F Pulse Rate 86 78 Respiratory 18 18 Rate Blood Pressure 94/58 132/78 O2 Sat by Pulse 99 95 Oximetry Medical Decision Making - Medical Decision Making 64-year-old male patient to ED patient does have solitary kidney secondary to renal transplant. Nausea vomiting coughing the last week. patient is afebrile. recently had COVID recently. Chest clear displayed possible pneumonia. Patient, and with Rocephin and Zithromax. Patient is dehydrated. Will be gently rehydrated. Patient will be admitted to Dr. Rodriguze who accepts admission. - Lab Data Result diagrams: 12/31/19 13:56 12/31/19 13:56 Lab Results 12/31/19 12/31/19 12/31/19 Range/Units 13:56 13:56 13:56 WBC 4.5 (3.8-10.6) k/uL RBC 4.49 (4.30-5.90) m/uL Hgb 13.1 (13.0-17.5) gm/dL Hct 41.4 (39.0-53.0) % MCV 92.2 (80.0-100.0) fL MCH 29.2 (25.0-35.0) pg MCHC 31.7 (31.0-37.0) g/dL RDW 13.6 (11.5-15.5) % Plt Count 158 (150-450) k/uL MPV 9.4 Neutrophils % 82 % Lymphocytes % 5 % Monocytes % 9 % Eosinophils % 0 % Basophils % 2 % Neutrophils # 3.7 (1.3-7.7) k/uL Lymphocytes # 0.2 L (1.0-4.8) k/uL Monocytes # 0.4 (0-1.0) k/uL Eosinophils # 0.0 (0-0.7) k/uL Basophils # 0.1 (0-0.2) k/uL PT 10.5 (9.0-12.0) sec INR 1.0 (<1.2) APTT 28.7 (22.0-30.0) sec Sodium 131 L (137-145) mmol/L Potassium 4.2 (3.5-5.1) mmol/L Chloride 100 (98-107) mmol/L Carbon Dioxide 23 (22-30) mmol/L Anion Gap 8 mmol/L BUN 48 H (9-20) mg/dL Creatinine 3.11 H (0.66-1.25) mg/dL Est GFR (CKD-EPI)AfAm 23 (>60 ml/min/1.73 sqM) Est GFR (CKD-EPI)NonAf 20 (>60 ml/min/1.73 sqM) Glucose 312 H (74-99) mg/dL POC Glucose (mg/dL) (75-99) mg/dL POC Glu Um Nurse ID Plasma Lactic Acid Raymond (0.7-2.0) mmol/L Calcium 7.4 L (8.4-10.2) mg/dL Phosphorus 3.6 (2.5-4.5) mg/dL Magnesium 1.4 L (1.6-2.3) mg/dL Total Bilirubin 0.5 (0.2-1.3) mg/dL AST 16 L (17-59) U/L ALT 10 (4-49) U/L Alkaline Phosphatase 102 (38-126) U/L Total Protein 5.1 L (6.3-8.2) g/dL Albumin 2.9 L (3.5-5.0) g/dL Acetone, Qual Negative (Negative) 12/31/19 12/31/19 Range/Units 13:56 14:42 WBC (3.8-10.6) k/uL RBC (4.30-5.90) m/uL Hgb (13.0-17.5) gm/dL Hct (39.0-53.0) % MCV (80.0-100.0) fL MCH (25.0-35.0) pg MCHC (31.0-37.0) g/dL RDW (11.5-15.5) % Plt Count (150-450) k/uL MPV Neutrophils % % Lymphocytes % % Monocytes % % Eosinophils % % Basophils % % Neutrophils # (1.3-7.7) k/uL Lymphocytes # (1.0-4.8) k/uL Monocytes # (0-1.0) k/uL Eosinophils # (0-0.7) k/uL Basophils # (0-0.2) k/uL PT (9.0-12.0) sec INR (<1.2) APTT (22.0-30.0) sec Sodium (137-145) mmol/L Potassium (3.5-5.1) mmol/L Chloride (98-107) mmol/L Carbon Dioxide (22-30) mmol/L Anion Gap mmol/L BUN (9-20) mg/dL Creatinine (0.66-1.25) mg/dL Est GFR (CKD-EPI)AfAm (>60 ml/min/1.73 sqM) Est GFR (CKD-EPI)NonAf (>60 ml/min/1.73 sqM) Glucose (74-99) mg/dL POC Glucose (mg/dL) 265 H (75-99) mg/dL POC Glu Um Nurse ID Svacha, II, Jack Plasma Lactic Acid Raymond 1.5 (0.7-2.0) mmol/L Calcium (8.4-10.2) mg/dL Phosphorus (2.5-4.5) mg/dL Magnesium (1.6-2.3) mg/dL Total Bilirubin (0.2-1.3) mg/dL AST (17-59) U/L ALT (4-49) U/L Alkaline Phosphatase (38-126) U/L Total Protein (6.3-8.2) g/dL Albumin (3.5-5.0) g/dL Acetone, Qual (Negative) - EKG Data -: EKG Interpreted by Me (and Dr. Kelly ) EKG Comments: ventricular rate 75, NC interval 128, QRS 100, QT/QTc 408/455. Normal sensory rhythm, left axis deviation. Nonspecific T-wave abnormality. No concern for acute ischemia this time. Disposition Clinical Impression: PILAR (acute kidney injury), Pneumonia Disposition: ADMITTED IP TO THIS HOSP Condition: Serious Is patient prescribed a controlled substance at d/c from ED?: No Referrals: [facility],Clinic [Primary Care Provider] - 1-2 days
[2019-12-31 14:15] LABS: Basophils # (A) 0.1 k/uL (0-0.2); Basophils % (A) 2 %; Eosinophils % (A) 0 %; HCT 41.4 % (39.0-53.0); HGB 13.1 gm/dL (13.0-17.5); Lymphocytes # (A) 0.2 k/uL (1.0-4.8); Lymphocytes % (A) 5 %; MCH 29.2 pg (25.0-35.0); MCHC 31.7 g/dL (31.0-37.0); MCV 92.2 fL (80.0-100.0); Mean Platelet Volume 9.4; Monocytes # (A) 0.4 k/uL (0-1.0); Monocytes % (A) 9 %; Neutrophils # (A) 3.7 k/uL (1.3-7.7); Neutrophils % (A) 82 %; Platelet Count 158 k/uL (150-450); RBC 4.49 m/uL (4.30-5.90); RDW 13.6 % (11.5-15.5); WBC 4.5 k/uL (3.8-10.6)
[2019-12-31 14:34] LABS: ALT 10 U/L (4-49); AST 16 U/L (17-59); African American GFR (CKD) 23 (>60 ml/min/1.73 sqM); Albumin 2.9 g/dL (3.5-5.0); Alkaline Phosphatase 102 U/L (38-126); Anion Gap 8 mmol/L; Blood Urea Nitrogen 48 mg/dL (9-20); Calcium 7.4 mg/dL (8.4-10.2); Carbon Dioxide 23 mmol/L (22-30); Chloride 100 mmol/L (98-107); Glucose 312 mg/dL (74-99); Magnesium 1.4 mg/dL (1.6-2.3); Non-African American GFR(CKD) 20 (>60 ml/min/1.73 sqM); Partial Thromboplastin Time 28.7 sec (22.0-30.0); Phosphorus 3.6 mg/dL (2.5-4.5); Potassium 4.2 mmol/L (3.5-5.1); Prothrombin Time 10.5 sec (9.0-12.0); Sodium 131 mmol/L (137-145); Total Bilirubin 0.5 mg/dL (0.2-1.3); Total Protein 5.1 g/dL (6.3-8.2)
--- NOTE | 2019-12-31 14:39 | XR ---
KUB HISTORY: Nausea and vomiting Frontal KUB and [address] scan 10/31/2019 There are extensive vascular calcifications present. Air-fluid levels are present without bowel diste ntion. Kidneys are atrophic. Bone mineralization is maintained. Lung bases show probable scarring. Th ere is a spinal curvature. No pneumoperitoneum. IMPRESSION: Findings consistent with medical renal disease. Nonspecific bowel gas pattern.
--- NOTE | 2019-12-31 14:41 | XR ---
EXAMINATION TYPE: XR chest 2V DATE OF EXAM: 12/31/2019 COMPARISON: R chest x-ray dated 08/13/2019 HISTORY: Weakness, nausea and vomiting TECHNIQUE: Frontal and lateral views of the chest are obtained. FINDINGS: Areas of scarring persists within the lung bases. No pneumothorax or pleural effusion. Car diac mediastinal silhouette, pulmonary vascularity and neil are stable, prominence of pulmonary arter y could be due to pulmonary artery hypertension. Aorta is dense. Question some patchy basilar airspac e disease. IMPRESSION: Correlate for possible pneumonia or scarring versus basilar atelectasis. Correlate for p ulmonary artery hypertension.
[2019-12-31 14:44] LABS: Glucose,Whole Blood 265 mg/dL (75-99)
[2019-12-31] MEDS ORDERED: AZITHROMYCIN 500 MG TAB PO STA (15:39)
[2019-12-31] MEDS ORDERED: cefTRIAXone IN SWFI 1,000 MG/10 ML SYRINGE IVP STA (15:39)
[2019-12-31] MEDS: SODIUM CHLORIDE 0.9% 1,000 ML IV SCH (16:31)
[2019-12-31] MEDS ORDERED: ONDANSETRON 4 MG/2 ML VIAL IVP PRN (16:35)
[2019-12-31 16:40] LABS: Appearance,Urine Turbid (Clear); Bilirubin,Urine Negative (Negative); Blood,Urine Moderate (Negative); Color,Urine Yellow; Glucose,Urine (UA) 4+ (Negative); Ketones,Urine 1+ (Negative); Leukocyte Esterase,Urine Large (Negative); Nitrite,Urine Negative (Negative); Protein,Urine 2+ (Negative); RBC,Urine 1 /hpf (0-5); Specific Gravity,Urine 1.012 (1.001-1.035); Urobilinogen,Urine <2.0 mg/dL (<2.0); WBC,Urine >182 /hpf (0-5)
[2019-12-31] MEDS ORDERED: NALOXONE 0.4 MG/ML 1 ML VIAL IV PRN (16:52)
[2019-12-31] MEDS ORDERED: ACETAMINOPHEN TAB 325 MG TAB PO PRN (16:52)
[2019-12-31 21:03] LABS: Glucose,Whole Blood 184 mg/dL (75-99)
[2019-12-31] MEDS: ATORVASTATIN 80 MG TAB PO SCH (21:52)
[2019-12-31] MEDS: TACROLIMUS 1 MG CAP PO SCH (21:52)
[2019-12-31] MEDS: SERTRALINE 100 MG TAB PO SCH (21:52)
[2019-12-31] MEDS: PANTOPRAZOLE 40 MG TABLET PO SCH (21:52)
[2019-12-31] MEDS: ONDANSETRON ODT 4 MG TAB PO SCH (21:52)
[2019-12-31] MEDS: INSULIN DETEMIR (LEVEMIR) 100 UNIT/ML SYR SQ SCH (21:53)
[2019-12-31] MEDS: MYCOPHENOLATE SODIUM DR 180 MG TABLET.DR PO SCH (21:53)
[2019-12-31] MEDS: hydrALAZINE HCL 25 MG TAB PO SCH (21:53)
[2020-01-01] MEDS: SODIUM CHLORIDE 0.9% 1,000 ML IV SCH ×2 (05:39→22:01)
[2020-01-01] MEDS: LEVOTHYROXINE 50 MCG TAB PO SCH (05:39)
[2020-01-01 06:41] LABS: Basophils % (A) 0 %; Eosinophils % (A) 0 %; HCT 38.2 % (39.0-53.0); HGB 11.9 gm/dL (13.0-17.5); Hypochromasia Slight; Lymphocytes # (A) 0.3 k/uL (1.0-4.8); Lymphocytes % (A) 6 %; MCH 28.8 pg (25.0-35.0); MCHC 31.1 g/dL (31.0-37.0); MCV 92.6 fL (80.0-100.0); Monocytes # (A) 0.4 k/uL (0-1.0); Monocytes % (A) 7 %; Neutrophils # (A) 4.6 k/uL (1.3-7.7); Neutrophils % (A) 86 %; Platelet Count 150 k/uL (150-450); RBC 4.13 m/uL (4.30-5.90); RDW 13.4 % (11.5-15.5); WBC 5.3 k/uL (3.8-10.6)
[2020-01-01 07:34] LABS: Glucose,Whole Blood 146 mg/dL (75-99)
[2020-01-01] MEDS: ONDANSETRON ODT 4 MG TAB PO SCH ×2 (07:44→20:38)
[2020-01-01] MEDS: CLOPIDOGREL 75 MG TAB PO SCH (07:44)
[2020-01-01] MEDS: PANTOPRAZOLE 40 MG TABLET PO SCH ×2 (07:44→20:38)
[2020-01-01] MEDS: INSULIN DETEMIR (LEVEMIR) 100 UNIT/ML SYR SQ SCH ×2 (07:44→20:37)
[2020-01-01] MEDS: hydrALAZINE HCL 25 MG TAB PO SCH ×3 (07:44→20:38)
[2020-01-01] MEDS: MYCOPHENOLATE SODIUM DR 180 MG TABLET.DR PO SCH ×2 (07:45→20:38)
[2020-01-01] MEDS: TACROLIMUS 1 MG CAP PO SCH ×2 (08:06→20:38)
--- NOTE | 2020-01-01 10:13 | P.HPIM ---
History of Present Illness 61-year-old pleasant male with known history of renal transplant and chronic kidney disease stage IV came in after she he was exposed to his family members and with Covid patient is found to have PCR positive for coronavirus pat ient has mildly elevated serum creatinine from his baseline of around 2.8-3.11. Patient is bit hyponatremic as well. Patient urine is abnormal although patient doesn't have any symptoms of UTI. Patient was started on Rocephin. Infectious disease and nephrology were consulted. Review of Systems REVIEW OF SYSTEMS: CONSTITUTIONAL: No fever, no malaise, no fatigue. HEENT: No recent visual problems or hearing problems. Denied any sore throat. CARDIOVASCULAR: No chest pain, orthopnea, PND, no palpitations, no syncope. PULMONARY: No shortness of breath, no cough, no hemoptysis. GASTROINTESTINAL: No diarrhea, no nausea, no vomiting, no abdominal pain. NEUROLOGICAL: No headaches, no weakness, no numbness. HEMATOLOGICAL: Denies any bleeding or petechiae. GENITOURINARY: Denies any burning micturition, frequency, or urgency. MUSCULOSKELETAL/RHEUMATOLOGICAL: Denies any joint pain, swelling, or any muscle pain. ENDOCRINE: Denies any polyuria or polydipsia. The rest of the 14-point review of systems is negative. Past Medical History Past Medical History: Coronary Artery Disease (CAD), Cancer, Chest Pain / Angella na, CVA/TIA, Dementia, Diabetes Mellitus, Dialysis, Eye Disorder, GERD/Reflux, GI Bleed, Hearing Disorder / Deafness, Hyperlipidemia, Hypertension, Myocardial Infarction (SC), Pneumonia, Renal Disease, Thyroid Disorder Additional Past Medical History / Comment(s): IDDM type I, neuropathy bilateral legs/feet, retinopathy bilaterally and is nearly blind, gastroparesis, ESRD with past hemo/peritoneal dialysis and in 2010 received kidney transplant, CKD stage II or III, recurrent UTIs, UTI with sepsis, does not completely empty bladder- self caths on occasion, incontinent of urine at times, TIAs, 2014 fall with multiple fractured ribs, vascular dementia, skin cancer with removal, upper GI bleed, hypomagnesemia, past medical record notes CDiff 3 times in the past (2017 last +) Last Myocardial Infarction Date:: 01/2019 History of Any Multi-Drug Resistant Organisms: None Reported Date of last positivie culture/infection: "years ago" MDRO Source:: stool Past Surgical History: Heart Catheterization, Heart Catheterization With Stent Additional Past Surgical History / Comment(s): 01/2019 cardiac cath tx medically, PCI with stents in 2012 and 2015, kidney transplant November 2010, patient has an AV fistula in the left upper extremity, colonoscopy, skin cancer removal , bilateral eye retinal bleeds with surgery, teeth extractions. Past Anesthesia/Blood Transfusion Reactions: No Reported Reaction Date of Last Stent Placement:: 09/2015 Past Psychological History: Depression Additional Psychological History / Comment(s): Pt resides with his spouse. He is legally blind. Pt states spouse works during daytime. He uses a walker or cane to ambulate. He has a glucometer. Smoking Status: Former smoker Past Alcohol Use History: None Reported Additional Past Alcohol Use History / Comment(s): Pt quit smoking 03/20/19. He had been smoking since he was 13 years old. He does have history of alcoholism has been alcohol free for 9 years. Past Drug Use History: None Reported - Past Family History Brother(s) Additional Family Medical History / Comment(s): Brother had depression and comitted suicide. Father Family Medical History: Diabetes Mellitus Additional Family Medical History / Comment(s): Father lived into his 90s. Mother Family Medical History: Myocardial Infarction (SC) Additional Family Medical History / Comment(s): Mother of a SC at the age of 57yrs. Medications and Allergies Home Medications Medication Instructions Recorded Confirmed Type Atorvastatin [Lipitor] 80 mg PO HS #30 tab 09/27/15 12/31/19 Rx Levothyroxine Sodium [Synthroid] 50 mcg PO DAILY 03/13/17 12/31/19 History Mycophenolate Sodium [Mycophenolic 720 mg PO BID 03/13/17 12/31/19 History Acid] Clopidogrel [Plavix] 75 mg PO DAILY 30 Days #30 tab 01/22/19 12/31/19 Rx hydrALAZINE HCL [Apresoline] 25 mg PO TID 30 Days #90 tab 01/22/19 12/31/19 Rx Insulin Aspart [NovoLOG Flexpen] See Protocol SQ AC-TID 04/01/19 12/31/19 History Pantoprazole Sodium [Protonix] 40 mg PO BID 08/12/19 12/31/19 History Sertraline HCl [Zoloft] 100 mg PO HS 08/12/19 12/31/19 History Tacrolimus [Prograf] 2 mg PO BID 10/31/19 12/31/19 History Insulin Detemir (Levemir) [Levemir] 10 unit SQ BID 12/31/19 12/31/19 History Ondansetron Odt [Zofran Odt] 4 mg PO BID 12/31/19 12/31/19 History Allergies Allergy/AdvReac Type Severity Reaction Status Date / Time No Known Allergies Allergy Verified 12/31/19 17:01 Physical Exam Vitals: Vital Signs Temp Pulse Pulse Resp BP BP Pulse Ox 01/01/20 09:52 136/59 01/01/20 09:03 97.7 F 86 16 93 L 01/01/20 04:00 16 01/01/20 01:26 99.0 F 78 16 156/76 97 12/31/19 23:55 18 12/31/19 20:00 97.9 F 75 18 160/77 95 12/31/19 19:45 98.5 F 75 14 160/77 95 12/31/19 19:40 18 12/31/19 18:24 76 16 131/82 95 12/31/19 16:33 97.6 F 78 18 132/78 95 12/31/19 12:38 99.6 F 86 18 94/58 99 Intake and Output 12/31/19 01/01/20 01/01/20 22:59 06:59 14:59 Other: Voiding Method Diaper Self-Catheterization # Voids 0 2 # Bowel Movements 1 Weight 65.771 kg PHYSICAL EXAMINATION: GENERAL: The patient is alert and oriented x3, not in any acute distress. Well developed, well nourished. HEENT: Pupils are round and equally reacting to light. EOMI. No scleral icterus. No conjunctival pallor. Normocephalic, atraumatic. No pharyngeal erythema. No thyromegaly. CARDIOVASCULAR: S1 and S2 present. No murmurs, rubs, or gallops. PULMONARY: Chest is clear to auscultation, no wheezing or crackles. ABDOMEN: Soft, nontender, nondistended, normoactive bowel sounds. No palpable organomegaly. MUSCULOSKELETAL: No joint swelling or deformity. EXTREMITIES: No cyanosis, clubbing, or pedal edema. NEUROLOGICAL: Gross neurological examination did not reveal any focal deficits. SKIN: No rashes. Note: Because of COVID 19 isolation, some of the history and physical exam findings are indirect and obtained from nursing staff, and other physician examinations to avoid unnecessary contact with the patient. Results CBC & Chem 7: 01/01/20 06:13 12/31/19 13:56 Labs: Abnormal Lab Results - Last 24 Hours (Table) 12/31/19 12/31/19 12/31/19 Range/Units 13:56 13:56 14:42 RBC (4.30-5.90) m/uL Hgb (13.0-17.5) gm/dL Hct (39.0-53.0) % Lymphocytes # 0.2 L (1.0-4.8) k/uL Sodium 131 L (137-145) mmol/L BUN 48 H (9-20) mg/dL Creatinine 3.11 H (0.66-1.25) mg/dL Glucose 312 H (74-99) mg/dL POC Glucose (mg/dL) 265 H (75-99) mg/dL Calcium 7.4 L (8.4-10.2) mg/dL Magnesium 1.4 L (1.6-2.3) mg/dL AST 16 L (17-59) U/L Total Protein 5.1 L (6.3-8.2) g/dL Albumin 2.9 L (3.5-5.0) g/dL Urine Protein (Negative) Urine Glucose (UA) (Negative) Urine Ketones (Negative) Urine Blood (Negative) Ur Leukocyte Esterase (Negative) Urine WBC (0-5) /hpf Urine WBC Clumps (None) /hpf Coronavirus (PCR) (Not Detectd) 12/31/19 12/31/19 12/31/19 Range/Units 16:20 16:23 21:01 RBC (4.30-5.90) m/uL Hgb (13.0-17.5) gm/dL Hct (39.0-53.0) % Lymphocytes # (1.0-4.8) k/uL Sodium (137-145) mmol/L BUN (9-20) mg/dL Creatinine (0.66-1.25) mg/dL Glucose (74-99) mg/dL POC Glucose (mg/dL) 184 H (75-99) mg/dL Calcium (8.4-10.2) mg/dL Magnesium (1.6-2.3) mg/dL AST (17-59) U/L Total Protein (6.3-8.2) g/dL Albumin (3.5-5.0) g/dL Urine Protein 2+ H (Negative) Urine Glucose (UA) 4+ H (Negative) Urine Ketones 1+ H (Negative) Urine Blood Moderate H (Negative) Ur Leukocyte Esterase Large H (Negative) Urine WBC >182 H (0-5) /hpf Urine WBC Clumps Many H (None) /hpf Coronavirus (PCR) Detected A (Not Detectd) 01/01/20 01/01/20 Range/Units 06:13 07:32 RBC 4.13 L (4.30-5.90) m/uL Hgb 11.9 L (13.0-17.5) gm/dL Hct 38.2 L (39.0-53.0) % Lymphocytes # 0.3 L (1.0-4.8) k/uL Sodium (137-145) mmol/L BUN (9-20) mg/dL Creatinine (0.66-1.25) mg/dL Glucose (74-99) mg/dL POC Glucose (mg/dL) 146 H (75-99) mg/dL Calcium (8.4-10.2) mg/dL Magnesium (1.6-2.3) mg/dL AST (17-59) U/L Total Protein (6.3-8.2) g/dL Albumin (3.5-5.0) g/dL Urine Protein (Negative) Urine Glucose (UA) (Negative) Urine Ketones (Negative) Urine Blood (Negative) Ur Leukocyte Esterase (Negative) Urine WBC (0-5) /hpf Urine WBC Clumps (None) /hpf Coronavirus (PCR) (Not Detectd) Microbiology - Last 24 Hours (Table) 12/31/19 16:20 Urine Culture - Preliminary Urine,Voided Thrombosis Risk Factor Assmnt - Choose All That Apply Any of the Below Risk Factors Present?: Yes Other Risk Factors: Yes Each Risk Factor Represents 2 Points: Age 61-74 years Thrombosis Risk Factor Assessment Total Risk Factor Score: 2 Thrombosis Risk Factor Assessment Level: Low Risk Assessment and Plan Plan: -Acute renal failure: Pale azotemia patient will be continued on IV fluids -Chronic kidney disease stage IV patient is status post renal transplant continue with the his a renal transplant medications. -Mild hypovolemic hyponatremia: IV fluids as mentioned above -Asymptomatic bacteriuria but antibiotics will be continued because of his renal transplant. Await urine cultures. -Covid 19 infection: Infectious disease was consulted patient is presently not hypoxic at this time supportive care. -Hyperthyroidism -Type 2 diabetes mellitus -Hyperlipidemia -Hypertension -Coronary artery disease -DVT prophylaxis with subcutaneous heparin
[2020-01-01 10:19] LABS: African American GFR (CKD) 27.8 (60.0-200.0); Anion Gap 10.2 mmol/L (4.00-12.00); BUN/Creat Ratio 15.93 Ratio (12.00-20.00); Calcium 7.3 mg/dL (8.7-10.3); Carbon Dioxide 22.8 mmol/L (21.6-31.8)
[2020-01-01 11:51] LABS: Glucose,Whole Blood 118 mg/dL (75-99)
--- NOTE | 2020-01-01 14:07 | CONS ---
CONSULTATION REASON FOR CONSULT: Renal failure. HISTORY OF PRESENT ILLNESS: Patient is a 64-year-old male with a history of end-stage renal disease, status post -donor renal transplant in November of 2010. Patient has underlying CKD with baseline creatinine about 2.3-2.5 mg/dL. He is admitted to the hospital with complaints of weakness. At this time patient is not able to give me a detailed history. He was noted to have a positive PCR for rodriguez virus. Patient denies any nausea or vomiting. No chest pains or shortness of breath. He has been voiding. 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 PAST SURGICAL HISTORY: Cardiac catheterization, kidney transplant, coronary stent placement, colonoscopy, skin cancer removal, eye surgery for retinal bleeding, teeth extractions. SOCIAL HISTORY: Positive for patient being a former smoker. No history of drug abuse. He did have remote history of alcohol abuse. REVIEW OF SYSTEMS: As per HPI. Other systems negative. MEDICATIONS: Prior to admission included Lipitor, Synthroid, CellCept, Plavix, hydralazine, insulin, Protonix, Zoloft, Prograf, Zofran. ALLERGIES: None. PHYSICAL EXAMINATION: Patient is comfortable, awake, not in any acute distress. Blood pressure is 136/59, heart rate 86 per minute, he is afebrile. Examination of the heart S1, S2. Examination of the lungs, bilateral breath sounds are heard. Abdomen is soft, nontender. Examination of the lower extremities shows no significant edema. VP [employer] C[employer] STRATEGY exam is grossly intact. LABS: Show sodium of 137, potassium 4.0, chloride 104, BUN 43, serum creatinine 2.7, hemoglobin 11.9 g/dL UA shows 2+ protein, 4+ glucose, 1+ ketones and moderate blood, WBCs more than 182. Rodriguez virus PCR is positive. ASSESSMENT: 1. Acute kidney injury prerenal currently improved with IV fluids. 2. COVID-19 infection with possible pneumonia. ID has been consulted. Respiratory status is fairly stable. Patient is currently not hypoxic. He is maintained on room air and chest x-ray shows bibasilar atelectasis versus pneumonia. 3. Chronic kidney disease stage 3B to 4 with baseline creatinine about 2.3-2.5 mg/dL secondary to chronic allograft nephropathy. 4. Status post -donor transplant 2010. Maintained on Prograf and CellCept. 5. Urinary tract infection. Urine culture is currently pending. Patient is maintained on an antibiotics. PLAN: Continue with IV fluids. Continue with current immunosuppressive medications. Await ID consult. Check bladder scan as patient had urine retention previously. Continue empiric antibiotics for UTI as well. Thank you for this consultation. Will continue to follow the patient with you during his hospitalization. MMODL / IJN: [id number] /
[2020-01-01 17:14] LABS: Glucose,Whole Blood 64 mg/dL (75-99)
[2020-01-01 17:33] LABS: Glucose,Whole Blood 86 mg/dL (75-99)
[2020-01-01] MEDS: ATORVASTATIN 80 MG TAB PO SCH (20:38)
[2020-01-01] MEDS: HEPARIN SODIUM,PORCINE 5,000 UNIT/ML 1 ML VIAL SQ SCH (20:38)
[2020-01-01] MEDS: SERTRALINE 100 MG TAB PO SCH (20:38)
[2020-01-01 20:39] LABS: Glucose,Whole Blood 177 mg/dL (75-99)
--- NOTE | 2020-01-02 00:36 | CONS ---
CONSULTATION DATE OF SERVICE: 01/01/2020 REASON FOR CONSULTATION: 1. Urinary tract infection. 2. COVID-19 infection. HISTORY OF PRESENT ILLNESS: The patient is a 64-year-old male with a past medical history significant for -donor renal transplant in 2010, in this patient who is currently on immunosuppressive medication and chronic kidney disease. The patient's was diagnosed with COVID-19 three weeks ago and the patient's has recovered since then. The patient was brought to the ER by the with concern for a low-grade fever of 99.9. There was noticed the day before presentation to the hospital, the patient also having nausea, vomiting, increased blood sugar over the last few days and did have a cough which is mild in nature, not bringing up any sputum. When asked specifically to the patient, he mentioned he is doing fine. Did not complain of any headache. No chest pain. No cough. No abdominal pain or any diarrhea. On arrival to the ER, the patient did have a low-grade fever of 99.6. Since then, the patient has been afebrile. The patient is not hypoxic, has been saturating 96% to 100% on room air. The patient did have a chronic PCR which came back positive. He also had a positive UA with large leukocyte esterase with more than 182 WBCs with a creatinine of 3.11 on admission down to 2.7. AST mildly elevated. CRP was not done. White count was normal and did have lymphopenia. Urine is showing a Gram-negative bacilli. The patient did have a chest x- ray correlate for possible pneumonia or scarring versus basilar atelectasis. The patient currently being treated with Rocephin 1 gram daily in addition to his routine medication. Infectious Disease was consulted for further management for his underlying UTI as well as as positive COVID testing. REVIEW OF SYSTEMS: Positive points have been mentioned in HPI. Rest of the systems are negative. PAST MEDICAL HISTORY: End-stage renal disease, status post donor kidney transplant in 2010, history of CVA, TIA, coronary artery disease, type 2 diabetes mellitus, gastroesophageal reflux disease, hypertension, hypothyroidism, type 1 diabetes mellitus, chronic renal insufficiency, history of UTI and C difficile colitis. PAST SURGICAL HISTORY: Kidney transplant, PTCA and stent placement, colonoscopy, skin cancer removal, cardiac catheterization. SOCIAL HISTORY: Remote history of smoking. No drinking or drug use. lives with . FAMILY HISTORY: No pertinent findings noticed. ALLERGIES: No known drug allergies. MEDICATIONS: Medications include the patient is currently on Tylenol, Lipitor, Rocephin, Plavix, heparin 5000 subcu q.12. He is on hydralazine, Levemir, Synthroid, mycophenolate, Narcan, Zofran, Protonix, Zoloft, and Prograf. PHYSICAL EXAMINATION: Blood pressure 176/78 with a pulse of 81, temperature is 97.5. He is 100% on room air. General description is a middle-aged male lying in bed in no distress. HEENT EXAMINATION: No pallor or scleral icterus. Oral mucous membrane is dry. No pharyngeal erythema or thrush. NECK: Trachea central, no thyromegaly. LUNGS: Unlabored breathing, decreased intensity of breath sounds. No wheeze or crackles. HEART: S1, S2. Regular rate and rhythm. ABDOMEN: Soft, no tenderness. No guarding or rigidity. EXTREMITIES: No edema of feet. SKIN EXAMINATION: No rash or mass palpable. NEUROLOGICAL: Patient is awake, alert, oriented x2. Mood and affect normal. LABS: Hemoglobin 11.9, white count 5.3. BUN of 43, creatinine 2.7. Electrolytes have been normal. Urine was positive: Gonzalez PCR is positive. Chest x-ray report as mentioned above. DIAGNOSTIC IMPRESSION: 1. Patient admitted to the hospital predominantly with nausea and vomiting. Did have a low-grade fever in this patient who did have a history of a kidney transplant on immunosuppressive medication with a positive UA and concern for possible nephritis from enteric gram-negative pathogen. 2. Patient with a positive COVID-19 testing. However, the patient did not have significant respiratory symptoms. Chest x-ray did not show ground-glass opacities and the patient is not hypoxic, saturating 100% on room air. We will recommend symptomatic treatment only. PLAN: 1. Rocephin 1 gram IV piggyback daily. 2. Check inflammatory markers. 3. We will hold on adding Decadron, Lovenox or Zinc at this point. 4. . 5. We will follow on his clinical condition and culture to further adjust medication if needed. Thank you for this consultation. Will follow this patient along with you. MMODL / IJN: [id number] /
[2020-01-02] MEDS: LEVOTHYROXINE 50 MCG TAB PO SCH (05:06)
[2020-01-02 06:48] LABS: HCT 38.3 % (39.0-53.0); Hypochromasia Slight; MCH 28.9 pg (25.0-35.0); MCHC 31.3 g/dL (31.0-37.0); MCV 92.5 fL (80.0-100.0); Mean Platelet Volume 8.8; Platelet Count 198 k/uL (150-450); RBC 4.15 m/uL (4.30-5.90); RDW 13.9 % (11.5-15.5); WBC 6.3 k/uL (3.8-10.6)
[2020-01-02] MEDS: INSULIN DETEMIR (LEVEMIR) 100 UNIT/ML SYR SQ SCH ×2 (07:43→20:47)
[2020-01-02 07:54] LABS: Glucose,Whole Blood 44 mg/dL (75-99)
[2020-01-02 08:00] LABS: Glucose,Whole Blood 67 mg/dL (75-99)
[2020-01-02] MEDS: hydrALAZINE HCL 25 MG TAB PO SCH ×3 (08:10→20:48)
[2020-01-02] MEDS: PANTOPRAZOLE 40 MG TABLET PO SCH ×2 (08:10→20:47)
[2020-01-02] MEDS: ONDANSETRON ODT 4 MG TAB PO SCH ×2 (08:10→20:47)
[2020-01-02] MEDS: HEPARIN SODIUM,PORCINE 5,000 UNIT/ML 1 ML VIAL SQ SCH ×2 (08:11→20:47)
[2020-01-02] MEDS: MYCOPHENOLATE SODIUM DR 180 MG TABLET.DR PO SCH ×2 (08:11→21:22)
[2020-01-02] MEDS: CLOPIDOGREL 75 MG TAB PO SCH (08:11)
[2020-01-02] MEDS: TACROLIMUS 1 MG CAP PO SCH ×2 (08:12→20:48)
[2020-01-02 10:06] LABS: African American GFR (CKD) 30.5 (60.0-200.0); Anion Gap 11.4 mmol/L (4.00-12.00); BUN/Creat Ratio 13.2 Ratio (12.00-20.00); Calcium 7.4 mg/dL (8.7-10.3); Carbon Dioxide 19.6 mmol/L (21.6-31.8); Non-African American GFR(CKD) 26.3 (60.0-200.0); Potassium 3.8 mmol/L (3.5-5.5)
[2020-01-02 11:29] LABS: Glucose,Whole Blood 125 mg/dL (75-99)
--- NOTE | 2020-01-02 12:55 | PN ---
PROGRESS NOTE Patient is seen for followup for acute kidney injury in a kidney transplant. The patient was admitted to the hospital as his PCR for coronary virus was positive. He states that he had not been eating or drinking much and he is maintained on IV fluids. Serum creatinine has improved from 3.1 3.1-2.5 mg/dL which is his baseline. PHYSICAL EXAMINATION: On examination today, patient denies any significant complaints. Blood pressure was 145/68, heart rate 69 per minute, he is afebrile. Examination of the heart . Abdomen is soft, nontender. There is no evidence of edema in the lower extremities. PROJECT SPECIALIST exam is grossly intact. LABS: Show sodium of 140, potassium 3.8, chloride 109. CO2 is 19.6, BUN 33, serum creatinine 2.5, glucose 43, hemoglobin 12.0 g/dL. ASSESSMENT: 1. Acute kidney injury prerenal currently improved with IV hydration. 2. Covid-19 infection and pneumonia, being followed by ID. Currently maintained on ceftriaxone. Patient did get a dose of azithromycin. He is very comfortable from respiratory standpoint at this time. 3. Status post -donor transplant 2010. Maintained on Prograf and CellCept. 4. Chronic kidney disease secondary to diabetic nephropathy and chronic allograft nephropathy. Patient does not follow up regularly as outpatient. I will check a Prograf level. Continue with the CellCept and Prograf at the current dose. 5. Urinary tract infection with urine culture growing Gram-negative bacilli maintained on . PLAN: Continue IV fluids. Encourage increased oral intake. Continue Rocephin for the urinary tract infection and check Prograf level. MMODL / IJN: [id number] /
--- NOTE | 2020-01-02 14:48 | P.PN ---
Subjective 61-year-old pleasant male with known history of renal transplant and chronic kidney disease stage IV came in after she he was exposed to his family members and with Covid patient is found to have PCR positive for coronavirus patient has mildly elevated serum creatinine from his baseline of around 2.8- 3.11. Patient is bit hyponatremic as well. Patient urine is abnormal although patient doesn't have any symptoms of UTI. Patient was started on Rocephin. Infectious disease and nephrology were consulted. 01/02/2020 Patient respiratory status is good but urine cultures are still pending also get the urine cultures patient probably can be discharged tomorrow serum creatinine improved to 2.5which is his baseline Constitutional: Denied any fatigue denied any fever. Cardio vascular: denied any chest pain, palpitations Gastrointestinal denied any nausea vomiting Pulmonary: Denied any shortness of breath cough Neurologic denied any new focal deficits All inpatient medications were reviewed and appropriate changes in these medications as dictated in the interval history and assessment and plan. Objective - Vital Signs Vital signs: Vital Signs Temp 97.7 F 01/02/20 14:27 Pulse 75 01/02/20 14:27 Resp 18 01/02/20 14:27 BP 175/68 01/02/20 14:27 Pulse Ox 97 01/02/20 14:27 Intake & Output 01/01/20 01/02/20 01/02/20 18:59 06:59 18:59 Intake Total 862.5 Balance 862.5 Intake: Intake, IV Titration 862.5 Amount Sodium Chloride 0.9% 1, 862.5 000 ml @ 75 mls/hr IV . [id number] [facility] Rx#:[id number] Other: Voiding Method Diaper Diaper Diaper Self-Catheterization Self-Catheterization Self-Catheterization # Voids 2 3 3 # Bowel Movements 1 - Exam PHYSICAL EXAMINATION: GENERAL: The patient is alert and oriented x3, not in any acute distress. Well developed, well nourished. HEENT: Pupils are round and equally reacting to light. EOMI. No scleral icterus. No conjunctival pallor. Normocephalic, atraumatic. No pharyngeal erythema. No thyromegaly. CARDIOVASCULAR: S1 and S2 present. No murmurs, rubs, or gallops. PULMONARY: Chest is clear to auscultation, no wheezing or crackles. ABDOMEN: Soft, nontender, nondistended, normoactive bowel sounds. No palpable organomegaly. MUSCULOSKELETAL: No joint swelling or deformity. EXTREMITIES: No cyanosis, clubbing, or pedal edema. NEUROLOGICAL: Gross neurological examination did not reveal any focal deficits. SKIN: No rashes. Note: Because of COVID 19 isolation, some of the history and physical exam findings are indirect and obtained from nursing staff, and other physician examinations to avoid unnecessary contact with the patient. - Labs CBC & Chem 7: 01/02/20 05:58 01/02/20 05:58 Labs: Abnormal Lab Results - Last 24 Hours (Table) 01/01/20 01/01/20 01/02/20 Range/Units 17:13 20:37 05:58 RBC 4.15 L (4.30-5.90) m/uL Hgb 12.0 L (13.0-17.5) gm/dL Hct 38.3 L (39.0-53.0) % Carbon Dioxide (21.6-31.8) mmol/L BUN (9.0-27.0) mg/dL Creatinine (0.6-1.5) mg/dL Est GFR (CKD-EPI)AfAm (60.0-200.0) Est GFR (CKD-EPI)NonAf (60.0-200.0) Glucose (70-110) mg/dL POC Glucose (mg/dL) 64 L 177 H (75-99) mg/dL Calcium (8.7-10.3) mg/dL 01/02/20 01/02/20 01/02/20 Range/Units 05:58 07:39 07:56 RBC (4.30-5.90) m/uL Hgb (13.0-17.5) gm/dL Hct (39.0-53.0) % Carbon Dioxide 19.6 L (21.6-31.8) mmol/L BUN 33.0 H (9.0-27.0) mg/dL Creatinine 2.5 H (0.6-1.5) mg/dL Est GFR (CKD-EPI)AfAm 30.5 L (60.0-200.0) Est GFR (CKD-EPI)NonAf 26.3 L (60.0-200.0) Glucose 43 L* (70-110) mg/dL POC Glucose (mg/dL) 44 L 67 L (75-99) mg/dL Calcium 7.4 L (8.7-10.3) mg/dL 01/02/20 Range/Units 11:28 RBC (4.30-5.90) m/uL Hgb (13.0-17.5) gm/dL Hct (39.0-53.0) % Carbon Dioxide (21.6-31.8) mmol/L BUN (9.0-27.0) mg/dL Creatinine (0.6-1.5) mg/dL Est GFR (CKD-EPI)AfAm (60.0-200.0) Est GFR (CKD-EPI)NonAf (60.0-200.0) Glucose (70-110) mg/dL POC Glucose (mg/dL) 125 H (75-99) mg/dL Calcium (8.7-10.3) mg/dL Microbiology - Last 24 Hours (Table) 12/31/19 16:20 Urine Culture - Preliminary Urine,Voided Gram Neg Bacilli 12/31/19 16:23 Blood Culture - Preliminary Blood No Growth after 24 hours Assessment and Plan Plan: -Acute renal failure: Pale azotemia patient will be continued on IV fluids -Chronic kidney disease stage IV patient is status post renal transplant continue with the his a renal transplant medications. -Mild hypovolemic hyponatremia: improved with IV fluids -Asymptomatic bacteriuria but antibiotics will be continued because of his renal transplant. Await urine cultures.cultures are showing gram-negative bacilli -Covid 19 infection: Infectious disease was consulted patient is presently not hypoxic at this time supportive care. -Hyperthyroidism -Type 2 diabetes mellitus -Hyperlipidemia -Hypertension -Coronary artery disease -DVT prophylaxis with subcutaneous heparin
[2020-01-02 16:30] LABS: Glucose,Whole Blood 206 mg/dL (75-99)
[2020-01-02] MEDS: SODIUM CHLORIDE 0.9% 1,000 ML IV SCH ×2 (17:04→20:48)
[2020-01-02 20:07] VITALS: RESP 20; TEMP 98.3
[2020-01-02 20:35] LABS: Glucose,Whole Blood 322 mg/dL (75-99)
[2020-01-02] MEDS: ATORVASTATIN 80 MG TAB PO SCH (20:47)
[2020-01-02] MEDS: SERTRALINE 100 MG TAB PO SCH (20:47)
[2020-01-02] MEDS ORDERED: hydrALAZINE HCL 25 MG TAB PO STA (22:10)
--- NOTE | 2020-01-02 22:40 | PN ---
PROGRESS NOTE DATE OF SERVICE: 01/02/2020 REASON FOR FOLLOWUP: 1. Klebsiella oxytoca transplant nephritis. 2. COVID-19 infection. INTERVAL HISTORY: Patient is currently afebrile. The patient overall is feeling better. He is breathing comfortably on room air. The patient denies having any chest pain, cough, no abdominal pain or diarrhea. PHYSICAL EXAMINATION: Blood pressure 135/60 with a pulse of 92, temperature 98.3. He is 98% on room air. General description is a middle-aged male lying in bed in no distress. Respiratory system: Unlabored breathing, clear to auscultation anteriorly. Heart S1, S2. Regular rate and rhythm. Abdomen soft, no tenderness. LABS: Hemoglobin is 12, white count 6.3, BUN of 33, creatinine is 2.5. Urine finalized with Klebsiella. DIAGNOSTIC IMPRESSION AND PLAN: 1. Patient admitted to hospital with weakness, which is multifactorial in this patient who did have a component of possible transplant nephritis with urine positive for Klebsiella. Patient is covered with Rocephin, sensitive to this antibiotic, to continue finish therapy with oral antibiotic. 2. The patient positive COVID testing. However, the patient is currently does not have respiratory symptoms. He is afebrile and did not require any supplemental oxygen. No need for any further therapy for the same. The patient will be monitored closely. MMODL / IJN: [id number] /
[2020-01-03 02:30] VITALS: BP 190/99; PULSE 94
[2020-01-03] MEDS: LEVOTHYROXINE 50 MCG TAB PO SCH (05:26)
[2020-01-03 07:12] LABS: Glucose,Whole Blood 207 mg/dL (75-99)
[2020-01-03] MEDS: CLOPIDOGREL 75 MG TAB PO SCH (08:36)
[2020-01-03] MEDS: ONDANSETRON ODT 4 MG TAB PO SCH (08:36)
[2020-01-03] MEDS: PANTOPRAZOLE 40 MG TABLET PO SCH (08:36)
[2020-01-03] MEDS: hydrALAZINE HCL 50 MG TAB PO SCH ×2 (08:36→15:13)
[2020-01-03] MEDS: MYCOPHENOLATE SODIUM DR 180 MG TABLET.DR PO SCH (08:37)
[2020-01-03] MEDS: INSULIN DETEMIR (LEVEMIR) 100 UNIT/ML SYR SQ SCH (08:37)
--- NOTE | 2020-01-03 08:37 | P.PN ---
Subjective Progress Note Date: 01/03/20 Principal diagnosis: This 64-year-old male known to us with a kidney transplant with a disease donor renal allograft in November 2010, has chronic kidney disease with a baseline cre atinine of 2.5 came in because of family members and tested positive and he was found to have positive for coag. Additionally his creatinine had gone up from his baseline Additionally he has Klebsiella oxytoca urinary tract infection. Is known with coronary artery disease, type 1 diabetes, significant retinopathy with near blindness. Currently he is denying any complaints he is not short of breath is on room air. Denies any cough fevers chills nausea vomiting. Objective - Vital Signs Vital signs: Vital Signs Temp 98.3 F 01/03/20 01:40 Pulse 94 01/03/20 01:40 Resp 20 01/03/20 01:40 BP 190/99 01/03/20 01:40 Pulse Ox 99 01/03/20 01:40 Intake & Output 01/02/20 01/03/20 01/03/20 18:59 06:59 18:59 Intake Total 600 Balance 600 Intake: Intake, IV Titration 600 Amount Sodium Chloride 0.9% 1, 600 000 ml @ 75 mls/hr IV . [id number] [facility] Rx#:[id number] Other: Voiding Method Diaper Toilet Self-Catheterization Diaper Self-Catheterization # Voids 3 3 # Bowel Movements 1 Patient was not examined but was seen from the door considering his positive, with state - Labs CBC & Chem 7: 01/02/20 05:58 01/02/20 05:58 Labs: Abnormal Lab Results - Last 24 Hours (Table) 01/02/20 01/02/20 01/02/20 Range/Units 05:58 11:28 16:28 Carbon Dioxide 19.6 L (21.6-31.8) mmol/L BUN 33.0 H (9.0-27.0) mg/dL Creatinine 2.5 H (0.6-1.5) mg/dL Est GFR (CKD-EPI)AfAm 30.5 L (60.0-200.0) Est GFR (CKD-EPI)NonAf 26.3 L (60.0-200.0) Glucose 43 L* (70-110) mg/dL POC Glucose (mg/dL) 125 H 206 H (75-99) mg/dL Calcium 7.4 L (8.7-10.3) mg/dL 01/02/20 01/03/20 Range/Units 20:33 07:09 Carbon Dioxide (21.6-31.8) mmol/L BUN (9.0-27.0) mg/dL Creatinine (0.6-1.5) mg/dL Est GFR (CKD-EPI)AfAm (60.0-200.0) Est GFR (CKD-EPI)NonAf (60.0-200.0) Glucose (70-110) mg/dL POC Glucose (mg/dL) 322 H 207 H (75-99) mg/dL Calcium (8.7-10.3) mg/dL Microbiology - Last 24 Hours (Table) 12/31/19 16:23 Blood Culture - Preliminary Blood No Growth after 48 hours 12/31/19 16:20 Urine Culture - Final Urine,Voided Klebsiella oxytoca Assessment and Plan Plan: Impression 1. Status post disease donor kidney allograft November 2010 with a baseline creatinine of 2.5 on immunosuppressive medication with Prograf and Myfortic. Acute kidney injury with creatinine peaking at 3.11 and currently down to 2.5 2. Admitted with "positive state but fairly asymptomatic 3. UTI with Klebsiella oxytoca on ceftriaxone. 4. History of dementia 5. History of diabetes mellitus type 1 with significant retinopathy 6. Uncontrolled hypertension Recommendation 1. Reintroduce metoprolol that was supposedly his home medication 2. Pending Prograf level 3. Maintain IV fluids normal saline at 75 4. Considering his stable and improving within maintain his immunosuppressive medications
[2020-01-03] MEDS: TACROLIMUS 1 MG CAP PO SCH (08:38)
[2020-01-03] MEDS: HEPARIN SODIUM,PORCINE 5,000 UNIT/ML 1 ML VIAL SQ SCH (08:38)
[2020-01-03] MEDS: SODIUM CHLORIDE 0.9% 1,000 ML IV SCH (11:24)
[2020-01-03 11:48] LABS: Glucose,Whole Blood 232 mg/dL (75-99)
--- NOTE | 2020-01-03 15:18 | P.DS ---
Providers Date of admission: 12/31/19 15:48 Attending physician: Julio Rodriguez MD Consults: 12/31/19 16:52 Consult Physician Stat Consulting Provider: Mahsa Montero Consult Reason/Comments: bran, s/p renal transplant 2009 Do you want consulting provider notified?: Yes 01/01/20 08:35 Consult Physician Routine Consulting Provider: Michele Loredo Consult Reason/Comments: COVID Do you want consulting provider notified?: Yes Primary care physician: [facility] Course: 61-year-old pleasant male with known history of renal transplant and chronic kidney disease stage IV came in after she he was exposed to his family members and with Covid patient is found to have PCR positive for coronavirus patient has mildly elevated serum creatinine from his baseline of around 2.8- 3.11. Patient is bit hyponatremic as well. Patient urine is abnormal although patient doesn't have any symptoms of UTI. Patient was started on Rocephin. Infectious disease and nephrology were consulted. 01/02/2020 Patient respiratory status is good but urine cultures are still pending also get the urine cultures patient probably can be discharged tomorrow serum creatinine improved to 2.5which is his baseline 01/03/2020 Patient urine cultures positive for Klebsiella oxytoca patient will be discharged on Ceftin 500 twice a day for 4 more days. PHYSICAL EXAMINATION: GENERAL: The patient is alert and oriented x3, not in any acute distress. Well developed, well nourished. HEENT: Pupils are round and equally reacting to light. EOMI. No scleral icterus. No conjunctival pallor. Normocephalic, atraumatic. No pharyngeal erythema. No thyromegaly. CARDIOVASCULAR: S1 and S2 present. No murmurs, rubs, or gallops. PULMONARY: Chest is clear to auscultation, no wheezing or crackles. ABDOMEN: Soft, nontender, nondistended, normoactive bowel sounds. No palpable organomegaly. MUSCULOSKELETAL: No joint swelling or deformity. EXTREMITIES: No cyanosis, clubbing, or pedal edema. NEUROLOGICAL: Gross neurological examination did not reveal any focal deficits. SKIN: No rashes. Note: Because of COVID 19 isolation, some of the history and physical exam findings are indirect and obtained from nursing staff, and other physician examinations to avoid unnecessary contact with the patient. Assessment and Plan Plan: -Acute renal failure: Pale azotemia improved with IV fluids -Chronic kidney disease stage IV patient is status post renal transplant continue with the his a renal transplant medications. -Mild hypovolemic hyponatremia: improved with IV fluids -Asymptomatic bacteriuria but antibiotics will be continued because of his renal transplant. patient will be discharged on above-mentioned antibiotics -Covid 19 infection: Infectious disease was consulted patient is presently not hypoxic at this time supportive care. -Hyperthyroidism -Type 2 diabetes mellitus -Hyperlipidemia -Hypertension -Coronary artery disease Patient Condition at Discharge: Serious Plan - Discharge Summary Discharge Rx Participant: No New Discharge Prescriptions: New Cefuroxime Axetil [Ceftin] 500 mg PO BID 4 Days #8 tab Continue Atorvastatin [Lipitor] 80 mg PO HS #30 tab Mycophenolate Sodium [Mycophenolic Acid] 720 mg PO BID Levothyroxine Sodium [Synthroid] 50 mcg PO DAILY hydrALAZINE HCL [Apresoline] 25 mg PO TID 30 Days #90 tab Clopidogrel [Plavix] 75 mg PO DAILY 30 Days #30 tab Insulin Aspart [NovoLOG Flexpen] See Protocol SQ AC-TID Pantoprazole Sodium [Protonix] 40 mg PO BID Sertraline HCl [Zoloft] 100 mg PO HS Tacrolimus [Prograf] 2 mg PO BID Insulin Detemir (Levemir) [Levemir] 10 unit SQ BID Ondansetron Odt [Zofran ODT] 4 mg PO BID Discharge Medication List Atorvastatin [Lipitor] 80 mg PO HS #30 tab 09/27/15 [Rx] Levothyroxine Sodium [Synthroid] 50 mcg PO DAILY 03/13/17 [History] Mycophenolate Sodium [Mycophenolic Acid] 720 mg PO BID 03/13/17 [History] Clopidogrel [Plavix] 75 mg PO DAILY 30 Days #30 tab 01/22/19 [Rx] hydrALAZINE HCL [Apresoline] 25 mg PO TID 30 Days #90 tab 01/22/19 [Rx] Insulin Aspart [NovoLOG Flexpen] See Protocol SQ AC-TID 04/01/19 [History] Pantoprazole Sodium [Protonix] 40 mg PO BID 08/12/19 [History] Sertraline HCl [Zoloft] 100 mg PO HS 08/12/19 [History] Tacrolimus [Prograf] 2 mg PO BID 10/31/19 [History] Insulin Detemir (Levemir) [Levemir] 10 unit SQ BID 12/31/19 [History] Ondansetron Odt [Zofran ODT] 4 mg PO BID 12/31/19 [History] Cefuroxime Axetil [Ceftin] 500 mg PO BID 4 Days #8 tab 01/03/20 [Rx] Follow up Appointment(s)/Referral(s): [facility],Clinic [Primary Care Provider] - 3 Days (Office closed Please call on Sunday to make apoointment) Patient Instructions/Handouts: Pneumonia (DC) Discharge Disposition: HOME SELF-CARE
== END 2020-01-03 16:03 | disposition home or self-care (01) | DRG 177 ==
LOC: EC 12:27 → 4SSUR 15:48
PROVIDERS: ADMIT Internal Medicine; ATTEND Internal Medicine
DX: U07.1 COVID-19 (principal); J12.89 Other viral pneumonia; T86.19 Other complication of kidney transplant; N17.9 Acute kidney failure, unspecified; E87.1 Hypo-osmolality and hyponatremia; N18.4 Chronic kidney disease, stage 4 (severe); N39.0 Urinary tract infection, site not specified; E10.43 Type 1 diabetes mellitus with diabetic autonomic (poly)neuropathy; E10.42 Type 1 diabetes mellitus with diabetic polyneuropathy; E10.319 Type 1 diabetes mellitus with unspecified diabetic retinopathy without macular edema; F01.50 Vascular dementia, unspecified severity, without behavioral disturbance, psychotic disturbance, mood disturbance, and anxiety; E10.22 Type 1 diabetes mellitus with diabetic chronic kidney disease; Z79.4 Long term (current) use of insulin; F10.21 Alcohol dependence, in remission; Z86.19 Personal history of other infectious and parasitic diseases; I25.10 Atherosclerotic heart disease of native coronary artery without angina pectoris; E78.5 Hyperlipidemia, unspecified; H91.90 Unspecified hearing loss, unspecified ear; K21.9 Gastro-esophageal reflux disease without esophagitis; H54.8 Legal blindness, as defined in USA; K31.84 Gastroparesis; I12.9 Hypertensive chronic kidney disease with stage 1 through stage 4 chronic kidney disease, or unspecified chronic kidney disease; F32.9 Major depressive disorder, single episode, unspecified; E86.1 Hypovolemia; D72.810 Lymphocytopenia; E03.9 Hypothyroidism, unspecified; B96.89 Other specified bacterial agents as the cause of diseases classified elsewhere; E86.0 Dehydration; Y83.0 Surgical operation with transplant of whole organ as the cause of abnormal reaction of the patient, or of later complication, without mention of misadventure at the time of the procedure; I25.2 Old myocardial infarction; Z79.890 Hormone replacement therapy; Z79.02 Long term (current) use of antithrombotics/antiplatelets; Z79.899 Other long term (current) drug therapy; Z85.828 Personal history of other malignant neoplasm of skin; Z86.73 Personal history of transient ischemic attack (TIA), and cerebral infarction without residual deficits; Z87.440 Personal history of urinary (tract) infections; Z87.19 Personal history of other diseases of the digestive system; Z87.81 Personal history of (healed) traumatic fracture; Z95.5 Presence of coronary angioplasty implant and graft; Z95.828 Presence of other vascular implants and grafts; Z98.890 Other specified postprocedural states; Z87.891 Personal history of nicotine dependence; Z81.8 Family history of other mental and behavioral disorders; Z83.3 Family history of diabetes mellitus; Z82.49 Family history of ischemic heart disease and other diseases of the circulatory system
CPT/HCPCS: 36415; 71046; 74018; 80048; 80053; 81001; 82009; 83605; 83735; 84100; 85025; 85027; 85610; 85730; 87040; 87077; 87086; 87186; 87635; 93005; 96374; 99285

== ENCOUNTER 2020-01-23 08:07 | Inpatient (IN) | payer MEDICARE, OTHER ==
--- NOTE | 2020-01-23 08:32 | ED ---
Extremity Problem HPI - General Chief complaint: Extremity Problem,Nontraumatic Stated complaint: Swollen arm Time Seen by Provider: 01/23/20 08:10 Source: patient, family, RN notes reviewed, old records reviewed Mode of arrival: ambulatory Limitations: physical limitation - History of Present Illness Initial comments: This a 64-year-old male with a history of multiple medical problems including kidney transplant who is now in process is developing renal failure who also is had recent hospitalizations and more recently frequent falls who had the onset this past week and today being Sunday of left arm swelling. He does have a fistula that remains in the left arm from when he needed dialysis in the past he has not had dialysis. No trauma reported that area of his body. The swelling apparently is eating somewhat better though the fistula does appear to be larger just proximal to the antecubital space and it was in the past. They did call [facility] fur stylist 3 days ago who did instruct him to come the hospital he refused until this morning. No other complaints no other modifying factors patient per his states he will not go through dialysis again he would prefer to pass. MD Complaint: extremity swelling - Related Data Home Medications Medication Instructions Recorded Confirmed Levothyroxine Sodium [Synthroid] 50 mcg PO DAILY 03/13/17 01/23/20 Mycophenolate Sodium [Mycophenolic 720 mg PO BID 03/13/17 01/23/20 Acid] Insulin Aspart [NovoLOG Flexpen] See Protocol SQ AC-TID 04/01/19 01/23/20 Pantoprazole Sodium [Protonix] 40 mg PO BID 08/12/19 01/23/20 Sertraline HCl [Zoloft] 100 mg PO HS 08/12/19 01/23/20 Tacrolimus [Prograf] 2 mg PO BID 10/31/19 01/23/20 Insulin Detemir (Levemir) [Levemir] 10 unit SQ BID 12/31/19 01/23/20 Ondansetron Odt [Zofran ODT] 4 mg PO BID 12/31/19 01/23/20 Metoclopramide [Reglan] 5 mg PO BID 01/23/20 01/23/20 Previous Rx's Medication Instructions Recorded Atorvastatin [Lipitor] 80 mg PO HS #30 tab 09/27/15 Clopidogrel [Plavix] 75 mg PO DAILY 30 Days #30 tab 01/22/19 hydrALAZINE HCL [Apresoline] 25 mg PO TID 30 Days #90 tab 01/22/19 Allergies Allergy/AdvReac Type Severity Reaction Status Date / Time No Known Allergies Allergy Verified 01/23/20 10:11 Review of Systems ROS Statement: Those systems with pertinent positive or pertinent negative responses have been documented in the HPI. ROS Other: All systems not noted in ROS Statement are negative. Past Medical History Past Medical History: Coronary Artery Disease (CAD), Cancer, Chest Pain / Angina, CVA/TIA, Dementia, Diabetes Mellitus, Dialysis, Eye Disorder, GERD/Reflu x, GI Bleed, Hearing Disorder / Deafness, Hyperlipidemia, Hypertension, Myocardial Infarction (MA), Pneumonia, Renal Disease, Thyroid Disorder Additional Past Medical History / Comment(s): IDDM type I, neuropathy bilateral legs/feet, retinopathy bilaterally and is nearly blind, gastroparesis, ESRD with past hemo/peritoneal dialysis and in 2010 received kidney transplant, CKD stage II or III, recurrent UTIs, UTI with sepsis, does not completely empty bladder- self caths on occasion, incontinent of urine at times, TIAs, 2013 fall with multiple fractured ribs, vascular dementia, skin cancer with removal, upper GI bleed, hypomagnesemia, past medical record notes CDiff 3 times in the past (2016 last +) Last Myocardial Infarction Date:: 01/2019 History of Any Multi-Drug Resistant Organisms: None Reported Date of last positivie culture/infection: "years ago" MDRO Source:: stool Past Surgical History: Heart Catheterization, Heart Catheterization With Stent Additional Past Surgical History / Comment(s): 01/2019 cardiac cath tx medically, PCI with stents in 2012 and 2015, kidney transplant November 2010, patient has an AV fistula in the left upper extremity, colonoscopy, skin cancer removal , bilateral eye retinal bleeds with surgery, teeth extractions. Past Anesthesia/Blood Transfusion Reactions: No Reported Reaction Date of Last Stent Placement:: 09/2015 Past Psychological History: Depression Smoking Status: Former smoker Past Alcohol Use History: None Reported Past Drug Use History: None Reported - Past Family History Brother(s) Additional Family Medical History / Comment(s): Brother had depression and comitted suicide. Father Family Medical History: Diabetes Mellitus Additional Family Medical History / Comment(s): Father lived into his 90s. Mother Family Medical History: Myocardial Infarction (MA) Additional Family Medical History / Comment(s): Mother of a MA at the age of 57yrs. General Exam - General Exam Comments Initial Comments: This is a well-developed sec appearing male who is awake alert oriented 3 Limitations: physical limitation General appearance: alert, in no apparent distress Head exam: Present: atraumatic, normocephalic, normal inspection Eye exam: Present: normal appearance, PERRL, EOMI. Absent: scleral icterus, conjunctival injection, periorbital swelling ENT exam: Present: mucous membranes dry Neck exam: Present: normal inspection. Absent: tenderness, meningismus, lymphadenopathy Respiratory exam: Present: normal lung sounds bilaterally. Absent: respiratory distress, wheezes, rales, rhonchi, stridor Cardiovascular Exam: Present: regular rate, normal rhythm, normal heart sounds. Absent: systolic murmur, diastolic murmur, rubs, gallop, clicks GI/Abdominal exam: Present: soft, normal bowel sounds. Absent: distended, tenderness, guarding, rebound, rigid Extremities exam: Present: full ROM, normal capillary refill, other (There is edema noted to the left upper extremity extending down to the forearm and hand the fistula in the proximal arm does demonstrate a throw no definite pulsation however.). Absent: tenderness, pedal edema, joint swelling, calf tenderness Back exam: Present: normal inspection Neurological exam: Present: alert, oriented X3, CN II-XII intact Psychiatric exam: Present: normal affect, normal mood Skin exam: Present: warm, dry, intact, normal color. Absent: rash Course Vital Signs 01/23/20 01/23/20 01/23/20 08:08 10:23 12:00 Temperature 98.2 F 98.1 F 98.1 F Pulse Rate 83 72 75 Respiratory 18 16 18 Rate Blood Pressure 119/71 163/90 153/79 O2 Sat by Pulse 99 100 99 Oximetry - Reevaluation(s) Reevaluation #1: 01/23/20 10:17 The patient was diagnosed with Covid 19 approximate 3 weeks ago. Medical Decision Making - Medical Decision Making I did discuss Pfizer the patient family patient does demonstrate evidence of dehydration as well as hypomagnesemia ultrasound showed enlargement of the distal aspect of the left arm fistula but no evidence of any leak at this time. The case is discussed with Dr. Forde's group I also discussed case with Dr. Cuppari - Lab Data Result diagrams: 01/23/20 08:40 01/23/20 08:40 Lab Results 01/23/20 01/23/20 01/23/20 Range/Units 08:40 08:40 10:03 WBC 7.3 (3.8-10.6) k/uL RBC 3.91 L (4.30-5.90) m/uL Hgb 11.3 L (13.0-17.5) gm/dL Hct 35.7 L (39.0-53.0) % MCV 91.4 (80.0-100.0) fL MCH 29.0 (25.0-35.0) pg MCHC 31.7 (31.0-37.0) g/dL RDW 15.2 (11.5-15.5) % Plt Count 163 (150-450) k/uL MPV 8.3 Neutrophils % 65 % Lymphocytes % 24 % Monocytes % 7 % Eosinophils % 2 % Basophils % 0 % Neutrophils # 4.8 (1.3-7.7) k/uL Lymphocytes # 1.8 (1.0-4.8) k/uL Monocytes # 0.5 (0-1.0) k/uL Eosinophils # 0.1 (0-0.7) k/uL Basophils # 0.0 (0-0.2) k/uL PT 10.7 (9.0-12.0) sec INR 1.0 (<1.2) APTT 24.9 (22.0-30.0) sec D-Dimer 0.70 H (<0.60) mg/L FEU Sodium 134 L (137-145) mmol/L Potassium 4.9 (3.5-5.1) mmol/L Chloride 104 (98-107) mmol/L Carbon Dioxide 30 (22-30) mmol/L Anion Gap 0 mmol/L BUN 26 H (9-20) mg/dL Creatinine 1.99 H (0.66-1.25) mg/dL Est GFR (CKD-EPI)AfAm 40 (>60 ml/min/1.73 sqM) Est GFR (CKD-EPI)NonAf 35 (>60 ml/min/1.73 sqM) Glucose 147 H (74-99) mg/dL Plasma Lactic Acid Raymond (0.7-2.0) mmol/L Calcium 8.0 L (8.4-10.2) mg/dL Magnesium 1.3 L (1.6-2.3) mg/dL Total Bilirubin 0.7 (0.2-1.3) mg/dL AST 18 (17-59) U/L ALT 14 (4-49) U/L Alkaline Phosphatase 119 (38-126) U/L Lactate Dehydrogenase 641 H (313-618) U/L Creatine Kinase 35 L (55-170) U/L C-Reactive Protein <5.0 (<10.0) mg/L Total Protein 4.9 L (6.3-8.2) g/dL Albumin 2.7 L (3.5-5.0) g/dL Coronavirus (PCR) (Not Detectd) Influenza Type A RNA (Not Detectd) Influenza Type B (PCR) (Not Detectd) 01/23/20 01/23/20 01/23/20 Range/Units 10:13 10:13 10:46 WBC (3.8-10.6) k/uL RBC (4.30-5.90) m/uL Hgb (13.0-17.5) gm/dL Hct (39.0-53.0) % MCV (80.0-100.0) fL MCH (25.0-35.0) pg MCHC (31.0-37.0) g/dL RDW (11.5-15.5) % Plt Count (150-450) k/uL MPV Neutrophils % % Lymphocytes % % Monocytes % % Eosinophils % % Basophils % % Neutrophils # (1.3-7.7) k/uL Lymphocytes # (1.0-4.8) k/uL Monocytes # (0-1.0) k/uL Eosinophils # (0-0.7) k/uL Basophils # (0-0.2) k/uL PT (9.0-12.0) sec INR (<1.2) APTT (22.0-30.0) sec D-Dimer (<0.60) mg/L FEU Sodium (137-145) mmol/L Potassium (3.5-5.1) mmol/L Chloride (98-107) mmol/L Carbon Dioxide (22-30) mmol/L Anion Gap mmol/L BUN (9-20) mg/dL Creatinine (0.66-1.25) mg/dL Est GFR (CKD-EPI)AfAm (>60 ml/min/1.73 sqM) Est GFR (CKD-EPI)NonAf (>60 ml/min/1.73 sqM) Glucose (74-99) mg/dL Plasma Lactic Acid Raymond 1.2 (0.7-2.0) mmol/L Calcium (8.4-10.2) mg/dL Magnesium (1.6-2.3) mg/dL Total Bilirubin (0.2-1.3) mg/dL AST (17-59) U/L ALT (4-49) U/L Alkaline Phosphatase (38-126) U/L Lactate Dehydrogenase (313-618) U/L Creatine Kinase (55-170) U/L C-Reactive Protein (<10.0) mg/L Total Protein (6.3-8.2) g/dL Albumin (3.5-5.0) g/dL Coronavirus (PCR) Not Detected (Not Detectd) Influenza Type A RNA Not Detected (Not Detectd) Influenza Type B (PCR) Not Detected (Not Detectd) - EKG Data -: EKG Interpreted by Me EKG shows normal: sinus rhythm EKG Comments: Was sinus rhythm a 71 1:30 QRS duration 104 QT since QTC 396/4:30 left exodeviation no acute ST-T wave changes - Radiology Data Radiology results: report reviewed (I did review the imaging and report evidence of bilateral infiltrates consistent with covid), image reviewed Disposition Clinical Impression: Failure to thrive in adult, Dehydration, Hypomagnesemia, Renal insufficiency, Dialysis AV fistula malfunction Disposition: ADMITTED IP TO THIS HOSP Condition: Fair Referrals: [facility],Clinic [Primary Care Provider] - 1-2 days
[2020-01-23 08:52] LABS: Basophils % (A) 0 %; Eosinophils # (A) 0.1 k/uL (0-0.7); Eosinophils % (A) 2 %; HCT 35.7 % (39.0-53.0); HGB 11.3 gm/dL (13.0-17.5); Lymphocytes # (A) 1.8 k/uL (1.0-4.8); Lymphocytes % (A) 24 %; MCHC 31.7 g/dL (31.0-37.0); MCV 91.4 fL (80.0-100.0); Mean Platelet Volume 8.3; Monocytes # (A) 0.5 k/uL (0-1.0); Monocytes % (A) 7 %; Neutrophils # (A) 4.8 k/uL (1.3-7.7); Neutrophils % (A) 65 %; Platelet Count 163 k/uL (150-450); RBC 3.91 m/uL (4.30-5.90); RDW 15.2 % (11.5-15.5); WBC 7.3 k/uL (3.8-10.6)
--- NOTE | 2020-01-23 09:03 | XR ---
EXAMINATION TYPE: XR chest 2V DATE OF EXAM: 01/23/2020 COMPARISON: Chest x-ray December 31, 2019. CT chest October 31, 2019. HISTORY: Weakness. TECHNIQUE: Frontal and lateral views of the chest are obtained. FINDINGS: There is chronic parenchymal change with new peripheral opacities left mid and right great er than left bilateral lower lungs. No pleural effusion or pneumothorax seen bilaterally. The cardiac silhouette size remains within normal limits with atherosclerotic change aortic knob. The osseous structures are intact. IMPRESSION: Chronic parenchymal changes with multifocal peripheral acute infiltrates suspicious for covid 19 infection.
[2020-01-23 09:09] LABS: ALT 14 U/L (4-49); AST 18 U/L (17-59); African American GFR (CKD) 40 (>60 ml/min/1.73 sqM); Albumin 2.7 g/dL (3.5-5.0); Alkaline Phosphatase 119 U/L (38-126); Anion Gap 0 mmol/L; Blood Urea Nitrogen 26 mg/dL (9-20); Carbon Dioxide 30 mmol/L (22-30); Chloride 104 mmol/L (98-107); Creatine Kinase 35 U/L (55-170); Glucose 147 mg/dL (74-99); Magnesium 1.3 mg/dL (1.6-2.3); Non-African American GFR(CKD) 35 (>60 ml/min/1.73 sqM); Potassium 4.9 mmol/L (3.5-5.1); Sodium 134 mmol/L (137-145); Total Bilirubin 0.7 mg/dL (0.2-1.3); Total Protein 4.9 g/dL (6.3-8.2)
--- NOTE | 2020-01-23 09:58 | US ---
EXAMINATION TYPE: US venous doppler duplex UE LT DATE OF EXAM: 01/23/2020 COMPARISON: NONE CLINICAL HISTORY: Left upper extremity edema, fistula present. Left lower arm swelling SIDE PERFORMED: Left Superficial cephalic vein not seen Left Arm: Appears negative for DVT Patent fistula seen Upper arm at patient's area of concern: 5.5 x 2.6 x 3.9cm enlarged portion of fistula seen Grayscale, color doppler, spectral doppler imaging performed of the deep veins of the left upper extr emity. There is normal flow, compressibility and vascular waveforms. IMPRESSION: No ultrasound evidence for acute deep or superficial venous thrombosis in the left upper extremity. Patent dialysis fistula graft visualized proximal left upper extremity towards end of stud y.
[2020-01-23] MEDS ORDERED: MAGNESIUM SULFATE-D5W PMX 1 GM in DEXTROSE/WATER 1 100ML.BAG IVPB ONE ×2 (10:22→10:36)
[2020-01-23] MEDS ORDERED: SODIUM CHLORIDE 0.9% 1,000 ML IV STA (10:22)
[2020-01-23 10:35] LABS: Partial Thromboplastin Time 24.9 sec (22.0-30.0); Prothrombin Time 10.7 sec (9.0-12.0)
[2020-01-23 10:40] LABS: D-Dimer 0.7 mg/L FEU (<0.60)
[2020-01-23 10:45] LABS: C Reactive Protein <5.0 mg/L (<10.0); LDH 641 U/L (313-618)
[2020-01-23] MEDS ORDERED: NALOXONE 0.4 MG/ML 1 ML VIAL IV PRN (12:43)
[2020-01-23] MEDS: SODIUM CHLORIDE 0.9% 1,000 ML IV SCH ×2 (14:44→21:15)
[2020-01-23] MEDS: LEVOTHYROXINE 50 MCG TAB PO SCH (16:03)
[2020-01-23] MEDS: hydrALAZINE HCL 25 MG TAB PO SCH ×2 (16:03→22:30)
[2020-01-23 17:47] LABS: Glucose,Whole Blood 239 mg/dL (75-99)
[2020-01-23] MEDS: INSULIN ASPART (NovoLOG) 100 UNIT/ML VIAL SQ SCH ×2 (18:02→21:04)
--- NOTE | 2020-01-23 19:05 | HP ---
HISTORY AND PHYSICAL DATE OF SERVICE: 01/23/2020 CHIEF COMPLAINTS: Weakness, fall and swollen arm. HISTORY OF PRESENT ILLNESS: This 64-year-old gentleman with a past medical history of multiple medical problems, including history of CAD, history of CVA, TIA, dementia, diabetes mellitus, type 2, history of hemodialysis, history of renal transplantation, history of GI bleed, hypertension, hyperlipidemia, being followed by Dr. Randal Quispe in the outpatient setting, was recently admitted with acute on chronic renal failure as well as COVID-19 last month. The patient went home, but the patient was getting progressively weaker and the family also noticed significant swelling of the left arm. Apparently the patient's works also and during the daytime the patient was getting dehydrated and extremely weak. The patient had multiple falls. The patient was taken to [facility] and admitted for evaluation and treatment. Creatinine is found to be 1.99. The baseline was around 2.9. The COVID-19 test was negative, but chest x-ray shows extensive pneumonia at this time. The patient was also saturating well. There is no history of any fever, rigor or chills. No history of headache, loss of consciousness, seizures at this time. PAST MEDICAL HISTORY: History of CAD, history of chest pain, CVA, TIA, dementia, diabetes mellitus, type 2, hemodialysis, GI bleed and renal transplantation, history of myocardial infarction. HOME MEDICATIONS: 1. Hydralazine 25 mg p.o. t.i.d. 2. Prograf 2 mg p.o. b.i.d. 3. Zoloft 100 mg at bedtime. 4. Protonix 40 mg p.o. b.i.d. 5. Zofran 4 mg p.o. b.i.d. 6. Mycophenolic acid 720 mg p.o. b.i.d. 7. Reglan 5 mg p.o. b.i.d. 8. Synthroid 50 mcg p.o. daily. 9. Levemir 10 units subcutaneously b.i.d. 10.NovoLog before meals t.i.d. 11.Plavix 100 mg p.o. daily. 12.Lipitor 80 mg at bedtime. ALLERGIES: NONE. FAMILY HISTORY: History of myocardial infarction. SOCIAL HISTORY: Previous history of smoking. No current smoking or alcohol intake. REVIEW OF SYSTEMS: ENT: Diminished hearing. Diminished vision. CARDIOVASCULAR SYSTEM: As mentioned earlier. RESPIRATORY SYSTEM: As mentioned earlier. GI: As mentioned earlier. : As mentioned earlier. NERVOUS SYSTEM: No numbness, weakness. ALLERGY/IMMUNOLOGY: No asthma, hayfever. MUSCULOSKELETAL: As mentioned earlier. HEMATOLOGY/ONCOLOGY: As mentioned earlier. ENDOCRINE: As mentioned earlier. CONSTITUTIONAL: As mentioned earlier. DERMATOLOGY: Negative. RHEUMATOLOGY: Negative. PSYCHIATRY: As mentioned earlier. PHYSICAL EXAMINATION: Patient alert and oriented x3. Pulse 88, blood pressure 146/81, respiration 20, temperature 98.1, pulse ox 96% on room air. HEENT: Conjunctivae normal. NECK: No jugular venous distention. CARDIOVASCULAR SYSTEM: S1, S2 muffled. RESPIRATORY SYSTEM: Breath sounds diminished at the bases. Bilateral scattered rhonchi and crackles. ABDOMEN: Soft, non-tender. No mass palpable. LEGS: No edema. No swelling. Left arm AV fistula is swollen; some slight tenderness. No erythema. Bruits still felt. NERVOUS SYSTEM: Higher functions as mentioned earlier. Moves all 4 limbs. No focal motor or sensory deficit. LYMPHATICS: No lymph node palpable in neck, axillae or groin. SKIN: No ulcer, rash, bleeding. JOINTS: No active deforming arthropathy. LABS: WBC 7.6, hemoglobin 11.3. D-dimer is 0.7. Sodium is 132, potassium 4.8, creatinine is 1.99. Albumin is 2.7. Magnesium 1.3. ASSESSMENT: 1. Severe dehydration with acute on chronic renal failure. 2. Chronic kidney disease, stage 3 baseline. 3. COVID-19 pneumonia, bilateral, extensive. 4. Gait dysfunction. 5. History of multiple falls. 6. History of renal transplantation. 7. History of coronary artery disease. 8. History of cerebrovascular accident, transient ischemic attack. 9. Dementia. 10.Diabetes mellitus, type 2. 11.Poor social support. 12.Pain and swelling of the left arm AV fistula. 13.History of gastroesophageal reflux disease. 14.History of gastrointestinal bleed. 15.Hard of hearing. 16.Hypertension. 17.Hyperlipidemia. 18.History of myocardial infarction. 19.History of hypothyroidism. 20.History of asymptomatic bacteriuria. 21.History of peripheral neuropathy. 22.History of sepsis. 23.History of coronary artery disease, stent. 24.History of depression. 25.History of nicotine dependence. 26.FULL CODE. RECOMMENDATIONS AND DISCUSSION: In this 64-year-old gentleman who presented with multiple complex medical issues, we will monitor the patient closely, continue the current medications, continue symptomatic treatment. Otherwise we will cautiously hydrate the patient. Nephrology evaluation. Repeat labs. I would also recommend PT/OT evaluation and possible ECF rehab. Resume the rest of the medications. Also Vascular Surgery Dr. Vang to evaluate the left arm because of swelling and pain. Guarded prognosis because of multiple complex medical issues. Further recommendations to follow. A copy of this dictation is being forwarded to Dr. Quispe, who is the primary physician. Discussed with the patient's at the bedside. MMODL / IJN: [id number] /
[2020-01-23 20:21] LABS: Glucose,Whole Blood 156 mg/dL (75-99)
[2020-01-23] MEDS: INSULIN DETEMIR (LEVEMIR) 100 UNIT/ML SYR SQ SCH (21:03)
[2020-01-23] MEDS: ONDANSETRON ODT 4 MG TAB PO SCH (21:04)
[2020-01-23] MEDS: ATORVASTATIN 80 MG TAB PO SCH (21:04)
[2020-01-23] MEDS: PANTOPRAZOLE 40 MG TABLET PO SCH (21:04)
[2020-01-23] MEDS: SERTRALINE 100 MG TAB PO SCH (21:04)
[2020-01-23] MEDS: METOCLOPRAMIDE 5 MG TAB PO SCH (21:14)
[2020-01-23] MEDS: TACROLIMUS 1 MG CAP PO SCH (21:14)
[2020-01-23] MEDS: MYCOPHENOLATE SODIUM DR 180 MG TABLET.DR PO SCH (21:15)
[2020-01-24] MEDS: LEVOTHYROXINE 50 MCG TAB PO SCH (05:26)
[2020-01-24 06:43] LABS: Basophils % (A) 0 %; Eosinophils # (A) 0.1 k/uL (0-0.7); Eosinophils % (A) 1 %; HCT 38.1 % (39.0-53.0); HGB 11.5 gm/dL (13.0-17.5); Hypochromasia Moderate; Lymphocytes # (A) 1.2 k/uL (1.0-4.8); Lymphocytes % (A) 22 %; MCH 28.5 pg (25.0-35.0); MCHC 30.1 g/dL (31.0-37.0); MCV 94.7 fL (80.0-100.0); Mean Platelet Volume 9.3; Monocytes # (A) 0.3 k/uL (0-1.0); Monocytes % (A) 5 %; Neutrophils # (A) 3.9 k/uL (1.3-7.7); Neutrophils % (A) 70 %; Platelet Count 151 k/uL (150-450); RBC 4.02 m/uL (4.30-5.90); RDW 15.1 % (11.5-15.5); WBC 5.6 k/uL (3.8-10.6)
[2020-01-24 07:21] LABS: Glucose,Whole Blood 431 mg/dL (75-99)
[2020-01-24] MEDS: ONDANSETRON ODT 4 MG TAB PO SCH ×2 (08:13→20:47)
[2020-01-24] MEDS: CLOPIDOGREL 75 MG TAB PO SCH (08:14)
[2020-01-24] MEDS: PANTOPRAZOLE 40 MG TABLET PO SCH ×2 (08:14→20:47)
[2020-01-24] MEDS: INSULIN ASPART (NovoLOG) 100 UNIT/ML VIAL SQ SCH ×4 (08:14→20:49)
[2020-01-24] MEDS: hydrALAZINE HCL 25 MG TAB PO SCH ×3 (08:14→22:29)
[2020-01-24] MEDS: INSULIN DETEMIR (LEVEMIR) 100 UNIT/ML SYR SQ SCH ×2 (08:14→20:47)
[2020-01-24] MEDS: MYCOPHENOLATE SODIUM DR 180 MG TABLET.DR PO SCH ×2 (08:15→20:47)
[2020-01-24] MEDS: METOCLOPRAMIDE 5 MG TAB PO SCH ×2 (08:15→20:47)
[2020-01-24] MEDS: TACROLIMUS 1 MG CAP PO SCH ×2 (08:16→20:47)
[2020-01-24 10:00] VITALS: BMI 21.4
[2020-01-24 10:11] LABS: Anion Gap 8.4 mmol/L (4.00-12.00); BUN/Creat Ratio 10.5 Ratio (12.00-20.00); Calcium 7.9 mg/dL (8.7-10.3); Carbon Dioxide 25.6 mmol/L (21.6-31.8); Non-African American GFR(CKD) 34.5 (60.0-200.0); Potassium 5.4 mmol/L (3.5-5.5)
[2020-01-24 11:15] LABS: Glucose,Whole Blood 327 mg/dL (75-99)
[2020-01-24] MEDS: SODIUM CHLORIDE 0.9% 1,000 ML IV SCH ×2 (12:27→23:19)
--- NOTE | 2020-01-24 16:20 | P.GSCN ---
History of Present Illness Consult date: 01/24/20 Reason for Consult: left upper extremity fistula swelling, left upper extremity edema History of present illness: 64 -year-old gentlemen with history of left upper extremity arteriovenous fistula created several years ago for renal failure which never was used due to a renal transplant is currently being treated at the hospital for weakness, failure to thrive and left upper extremity swelling. Patient was recently in the hospital and treated for acute on chronic renal failure and COVID 19. He states his noticed swelling of the left upper extremity over the last couple of weeks. He denies any pain at the fistula or forearm. He is weak according to his and also she states he doesn't want any dialysis if his kidneys fail and would rather just . Currently he wants to go home. He denies any fevers, chills, nausea, vomiting, chest pain or left arm pain. Review of Systems All systems: negative (what is mentioned in the HPI or PMH) Past Medical History Past Medical History: Coronary Artery Disease (CAD), Cancer, Chest Pain / Angina, CVA/TIA, Dementia, Diabetes Mellitus, Dialysis, Eye Disorder, GERD/Reflux, GI Bleed, Hearing Disorder / Deafness, Hyperlipidemia, Hypertension, Myocardial Infarction ([place]), Pneumonia, Renal Disease, Thyroid Disorder Additional Past Medical History / Comment(s): Pt recently admitted to [facility] on 12/[facility]/19 with acute renal failure, covid 19, mild hyponatremia, asymptomatic bacturia. Other hx: IDDM type II, neuropathy bilateral legs/feet, retinopathy bilaterally and is nearly blind, gastroparesis, ESRD with past hemo/peritoneal dialysis and in 2010 received kidney transplant, CKD stageIV-pt states it has been recommended he has hemodialysis but he is not willing to do so, recurrent UTIs, UTI with sepsis, incomplete bladder emptying/self cathed on occasion in the past, incontinent of urine at times, TIAs, 2013 fall with multiple fractured ribs, vascular dementia, skin cancer with removal, upper GI bleed, hypomagnesemia Last Myocardial Infarction Date:: 01/2019 History of Any Multi-Drug Resistant Organisms: None Reported Year Discovered:: "years ago" MDRO Source:: stool Past Surgical History: Heart Catheterization, Heart Catheterization With Stent Additional Past Surgical History / Comment(s): 01/2019 cardiac cath tx medically, PCI with stents in 2012 and 2015, kidney transplant November 2010, patient has an AV fistula in the left upper extremity, colonoscopy, skin cancer removal , bilateral eye retinal bleeds with surgery, teeth extractions. Past Anesthesia/Blood Transfusion Reactions: No Reported Reaction Date of Last Stent Placement:: 09/2015 Smoking Status: Former smoker - Past Family History Brother(s) Additional Family Medical History / Comment(s): Brother had depression and comitted suicide. Father Family Medical History: Diabetes Mellitus Additional Family Medical History / Comment(s): Father lived into his 90s. Mother Family Medical History: Myocardial Infarction ([place]) Additional Family Medical History / Comment(s): Mother of a [place] at the age of 57yrs. Medications and Allergies Home Medications Medication Instructions Recorded Confirmed Type Atorvastatin [Lipitor] 80 mg PO HS #30 tab 09/27/15 01/23/20 Rx Levothyroxine Sodium [Synthroid] 50 mcg PO DAILY 03/13/17 01/23/20 History Mycophenolate Sodium [Mycophenolic 720 mg PO BID 03/13/17 01/23/20 History Acid] Clopidogrel [Plavix] 75 mg PO DAILY 30 Days #30 tab 01/22/19 01/23/20 Rx hydrALAZINE HCL [Apresoline] 25 mg PO TID 30 Days #90 tab 01/22/19 01/23/20 Rx Insulin Aspart [NovoLOG Flexpen] See Protocol SQ AC-TID 04/01/19 01/23/20 History Pantoprazole Sodium [Protonix] 40 mg PO BID 08/12/19 01/23/20 History Sertraline HCl [Zoloft] 100 mg PO HS 08/12/19 01/23/20 History Tacrolimus [Prograf] 2 mg PO BID 10/31/19 01/23/20 History Insulin Detemir (Levemir) [Levemir] 10 unit SQ BID 12/31/19 01/23/20 History Ondansetron Odt [Zofran ODT] 4 mg PO BID 12/31/19 01/23/20 History Metoclopramide [Reglan] 5 mg PO BID 01/23/20 01/23/20 History Allergies Allergy/AdvReac Type Severity Reaction Status Date / Time No Known Allergies Allergy Verified 01/23/20 10:11 Surgical - Exam Vital Signs Temp Pulse Resp BP Pulse Ox 98.2 F 83 18 119/71 99 01/23/20 08:08 01/23/20 08:08 01/23/20 08:08 01/23/20 08:08 01/23/20 08:08 left upper extremity fistula with aneurysmal segments throughout with the largest being at the elbow. Good palpable thrill noted. 2+ edema in the left forearm without any tenderness to palpation. Right upper extremity without edema. Palpable radial pulses bilaterally. - General well developed, no well nourished, no distress, no pain, cachectic, chronically ill - Eyes PERRL - Respiratory normal expansion - Cardiovascular Rhythm: regular - Abdomen Abdomen: soft, non tender - Integumentary no rash, no growths - Neurologic normal coordination - Psychiatric oriented to time, oriented to person, oriented to place, speech is normal Results - Labs 01/24/20 05:23 01/24/20 05:23 Abnormal Lab Results - Last 24 Hours (Table) 01/23/20 01/23/20 01/24/20 Range/Units 17:44 20:19 05:23 RBC 4.02 L (4.30-5.90) m/uL Hgb 11.5 L (13.0-17.5) gm/dL Hct 38.1 L (39.0-53.0) % MCHC 30.1 L (31.0-37.0) g/dL Creatinine (0.6-1.5) mg/dL Est GFR (CKD-EPI)AfAm (60.0-200.0) Est GFR (CKD-EPI)NonAf (60.0-200.0) BUN/Creatinine Ratio (12.00-20.00) Ratio Glucose (70-110) mg/dL POC Glucose (mg/dL) 239 H 156 H (75-99) mg/dL Calcium (8.7-10.3) mg/dL 01/24/20 01/24/20 01/24/20 Range/Units 05:23 07:20 11:13 RBC (4.30-5.90) m/uL Hgb (13.0-17.5) gm/dL Hct (39.0-53.0) % MCHC (31.0-37.0) g/dL Creatinine 2.0 H (0.6-1.5) mg/dL Est GFR (CKD-EPI)AfAm 40.0 L (60.0-200.0) Est GFR (CKD-EPI)NonAf 34.5 L (60.0-200.0) BUN/Creatinine Ratio 10.50 L (12.00-20.00) Ratio Glucose 413 H (70-110) mg/dL POC Glucose (mg/dL) 431 H 327 H (75-99) mg/dL Calcium 7.9 L (8.7-10.3) mg/dL Microbiology - Last 24 Hours (Table) 01/23/20 10:03 Blood Culture - Preliminary Blood No Growth after 24 hours Diabetes panel 01/24/20 Range/Units 05:23 Sodium 137 (135-145) mmol/L Potassium 5.4 (3.5-5.5) mmol/L Chloride 103 (96-109) mmol/L Carbon Dioxide 25.6 (21.6-31.8) mmol/L BUN 21.0 (9.0-27.0) mg/dL Creatinine 2.0 H (0.6-1.5) mg/dL Glucose 413 H (70-110) mg/dL Calcium 7.9 L (8.7-10.3) mg/dL Calcium panel 01/24/20 Range/Units 05:23 Calcium 7.9 L (8.7-10.3) mg/dL Pituitary panel 01/24/20 Range/Units 05:23 Sodium 137 (135-145) mmol/L Potassium 5.4 (3.5-5.5) mmol/L Chloride 103 (96-109) mmol/L Carbon Dioxide 25.6 (21.6-31.8) mmol/L BUN 21.0 (9.0-27.0) mg/dL Creatinine 2.0 H (0.6-1.5) mg/dL Glucose 413 H (70-110) mg/dL Calcium 7.9 L (8.7-10.3) mg/dL Adrenal panel 01/24/20 Range/Units 05:23 Sodium 137 (135-145) mmol/L Potassium 5.4 (3.5-5.5) mmol/L Chloride 103 (96-109) mmol/L Carbon Dioxide 25.6 (21.6-31.8) mmol/L BUN 21.0 (9.0-27.0) mg/dL Creatinine 2.0 H (0.6-1.5) mg/dL Glucose 413 H (70-110) mg/dL Calcium 7.9 L (8.7-10.3) mg/dL - Imaging Additional studies: Reviewed ultrasound of the left upper extremity- no stenosis, or dvt noted. Fistula is widely patent. Assessment and Plan Assessment: 1. Left upper extremity edema 2. Left upper extremity aneurysmal fistula- functional 3. Acute on chronic renal failure 4. CKD 5. History of renal transplantation 6. DM type 2 7. Dehydration Plan: Discussed with and patient options for swelling of the left upper extremity. Patient does not want any intervention or even dialysis if he needs it at this time. I recommend elevating the left arm as well as wrap from the hand to the forearm to decrease the edema. No surgical intervention at this time. Thank you for the consultation. If you have any questions please call anytime.
[2020-01-24 17:30] LABS: Glucose,Whole Blood 42 mg/dL (75-99)
[2020-01-24 17:46] LABS: Glucose,Whole Blood 36 mg/dL (75-99)
[2020-01-24 18:07] LABS: Glucose,Whole Blood 75 mg/dL (75-99)
[2020-01-24 20:14] LABS: Glucose,Whole Blood 120 mg/dL (75-99)
[2020-01-24] MEDS: SERTRALINE 100 MG TAB PO SCH (20:47)
[2020-01-24] MEDS: ATORVASTATIN 80 MG TAB PO SCH (20:47)
[2020-01-24] MEDS: ONDANSETRON 4 MG/2 ML VIAL IVP PRN (23:19)
[2020-01-24] MEDS: PANTOPRAZOLE 40 MG/10 ML VIAL IVP SCH (23:20)
[2020-01-24] MEDS: DEXTROSE 5%-0.9% NACL 1,000 ML IV SCH (23:23)
[2020-01-25] MEDS: ONDANSETRON 4 MG/2 ML VIAL IVP PRN (05:34)
[2020-01-25] MEDS: LEVOTHYROXINE 50 MCG TAB PO SCH (05:34)
[2020-01-25 07:06] LABS: Glucose,Whole Blood 340 mg/dL (75-99)
[2020-01-25 08:00] LABS: Basophils % (A) 0 %; Eosinophils % (A) 0 %; HCT 35.9 % (39.0-53.0); HGB 10.4 gm/dL (13.0-17.5); Hypochromasia Marked; Lymphocytes # (A) 1.3 k/uL (1.0-4.8); Lymphocytes % (A) 25 %; MCH 29.1 pg (25.0-35.0); MCHC 29.1 g/dL (31.0-37.0); Macrocytosis Slight; Mean Platelet Volume 8.9; Monocytes # (A) 0.3 k/uL (0-1.0); Monocytes % (A) 6 %; Neutrophils # (A) 3.5 k/uL (1.3-7.7); Neutrophils % (A) 66 %; Platelet Count 132 k/uL (150-450); RBC 3.59 m/uL (4.30-5.90); WBC 5.4 k/uL (3.8-10.6)
[2020-01-25] MEDS: INSULIN ASPART (NovoLOG) 100 UNIT/ML VIAL SQ SCH ×4 (08:24→20:12)
[2020-01-25] MEDS: INSULIN DETEMIR (LEVEMIR) 100 UNIT/ML SYR SQ SCH ×2 (08:24→21:17)
[2020-01-25] MEDS: PANTOPRAZOLE 40 MG/10 ML VIAL IVP SCH ×2 (08:24→21:16)
[2020-01-25] MEDS: CLOPIDOGREL 75 MG TAB PO SCH (08:25)
[2020-01-25] MEDS: hydrALAZINE HCL 25 MG TAB PO SCH ×3 (08:25→21:17)
[2020-01-25] MEDS: ONDANSETRON ODT 4 MG TAB PO SCH ×2 (08:25→21:17)
[2020-01-25] MEDS: MYCOPHENOLATE SODIUM DR 180 MG TABLET.DR PO SCH ×2 (08:26→21:16)
[2020-01-25] MEDS: METOCLOPRAMIDE 5 MG TAB PO SCH ×2 (08:27→21:17)
[2020-01-25] MEDS: TACROLIMUS 1 MG CAP PO SCH ×2 (08:27→21:17)
[2020-01-25 11:23] LABS: Glucose,Whole Blood 235 mg/dL (75-99)
[2020-01-25 13:17] LABS: African American GFR (CKD) 45.4 (60.0-200.0); BUN/Creat Ratio 9.44 Ratio (12.00-20.00); Calcium 6.5 mg/dL (8.7-10.3); Non-African American GFR(CKD) 39.2 (60.0-200.0); Potassium 4.5 mmol/L (3.5-5.5)
[2020-01-25 17:25] LABS: Glucose,Whole Blood 56 mg/dL (75-99)
[2020-01-25] MEDS: DEXTROSE 5%-0.9% NACL 1,000 ML IV SCH (18:05)
[2020-01-25 20:09] LABS: Glucose,Whole Blood 142 mg/dL (75-99)
[2020-01-25] MEDS: ATORVASTATIN 80 MG TAB PO SCH (21:17)
[2020-01-25] MEDS: SERTRALINE 100 MG TAB PO SCH (21:17)
--- NOTE | 2020-01-26 02:40 | P.PN ---
Subjective Progress Note Date: 01/24/20 Patient is a 64-year-old male with a past medical history of coronary disease, history of CVA, TIA, dementia, diabetes type 2, history of hemodialysis, history of renal transplantation and GI bleed and hypertension hyperlipidemia and other multiple medical problems was admitted to hospital due to acute on chronic renal failure as well as COVID-19 last month. Patient was admitted to recently and was sent home. Patient came back to the hospital with progressive weakness and also swelling of the left arm. Evidently patient's works also and during the daytime patient was getting dehydrated and extremely weak. Patient was also having multiple falls. Current Covid test is negative. X-ray showed extensive pneumonia at this time as well. Currently patient is saturating well on room air. No fever no chills. Patient was admitted to the hospital due to failure to thrive and acute kidney injury. 01/24/2020 Patient is currently awake alert oriented and but does have underlying dementia. No complaints of chest pain or shortness of breath. Patient has been afebrile. Blood pressures fairly elevated. Patient is being continued on IV hydration with D5 normal saline. Patient went into hypoglycemia and was started on D5 saline. Laboratory data showed WBC 5.6, hemoglobin 11.5 and platelets 151 BUN 21 and creatinine 2.0 blood sugar was 413 patient is on Levemir 10 units twice daily Current medications reviewed. Objective - Vital Signs Vital signs: Vital Signs Temp 98.5 F 01/24/20 11:00 Pulse 97 01/24/20 11:00 Resp 18 01/24/20 11:00 BP 164/85 01/24/20 11:00 Pulse Ox 97 01/24/20 12:00 Intake & Output 01/23/20 01/24/20 01/24/20 18:59 06:59 18:59 Intake Total 2210 Balance 2210 Weight 65.771 kg 65.771 kg Intake: Intake, IV Titration 900 Amount Sodium Chloride 0.9% 1, 900 000 ml @ 75 mls/hr IV . [id number] [facility] Rx#:[id number] Oral 1310 Other: Voiding Method Toilet Toilet Toilet Self-Catheterization Self-Catheterization Self-Catheterization # Voids 1 5 - Exam PHYSICAL EXAMINATION: Patient is lying in the bed comfortably, no acute distress, awake alert and oriented.. HEENT: Normocephalic. Neck is supple. Pupils reactive. Nostrils clear. Oral cavity is moist. Ears reveal no drainage. Neck reveals no JVD, carotid bruits, or thyromegaly. CHEST EXAMINATION: Trachea is central. Symmetrical expansion. Bibasilar diminished air entry.Nonlabored breathing. CARDIAC: Normal S1, S2 with no gallops. No murmurs ABDOMEN: Soft. Bowel sounds normal. No organomegaly. No abdominal bruits. Extremities: reveal no edema. No clubbing or cyanosis LUE swelling anf previous AV fistula noted. Neurologically awake, alert, oriented x1-2 with well-coordinated movements. No focal deficits noted, dementia Skin: No rash or skin lesions. Psychiatric: Coperative. Nonsuicidal Musculoskeletal: No joint swelling or deformity. Normal range of motion. - Labs CBC & Chem 7: 01/25/20 07:14 01/25/20 13:49 Labs: Abnormal Lab Results - Last 24 Hours (Table) 01/23/20 01/23/20 01/24/20 Range/Units 17:44 20:19 05:23 RBC 4.02 L (4.30-5.90) m/uL Hgb 11.5 L (13.0-17.5) gm/dL Hct 38.1 L (39.0-53.0) % MCHC 30.1 L (31.0-37.0) g/dL Creatinine (0.6-1.5) mg/dL Est GFR (CKD-EPI)AfAm (60.0-200.0) Est GFR (CKD-EPI)NonAf (60.0-200.0) BUN/Creatinine Ratio (12.00-20.00) Ratio Glucose (70-110) mg/dL POC Glucose (mg/dL) 239 H 156 H (75-99) mg/dL Calcium (8.7-10.3) mg/dL 01/24/20 01/24/20 01/24/20 Range/Units 05:23 07:20 11:13 RBC (4.30-5.90) m/uL Hgb (13.0-17.5) gm/dL Hct (39.0-53.0) % MCHC (31.0-37.0) g/dL Creatinine 2.0 H (0.6-1.5) mg/dL Est GFR (CKD-EPI)AfAm 40.0 L (60.0-200.0) Est GFR (CKD-EPI)NonAf 34.5 L (60.0-200.0) BUN/Creatinine Ratio 10.50 L (12.00-20.00) Ratio Glucose 413 H (70-110) mg/dL POC Glucose (mg/dL) 431 H 327 H (75-99) mg/dL Calcium 7.9 L (8.7-10.3) mg/dL Microbiology - Last 24 Hours (Table) 01/23/20 10:03 Blood Culture - Preliminary Blood No Growth after 24 hours Assessment and Plan Assessment: Severe dehydration with acute on chronic kidney disease stage III Recent history of bilateral extensive COVID-19 pneumonia Left upper extremity swelling with previous history of AV fistula Gait dysfunction Multiple falls History of renal transplantation Coronary disease history History of CVA/TIA Dementia Diabetes type 2 Poor social support GERD History of GI bleed Hard of hearing Hypertension Hyperlipidemia History of [place] Hypothyroidism Diabetic peripheral neuropathy Depression History of nicotine dependence Patient is full code Plan: Patient be continued on IV hydration and follow-up renal function. Continue with PT OT and encourage oral intake. Patient was seen by vascular surgery due to left upper extremity edema and previous fistula. Recommended wrapping at this time no surgical intervention was needed. Possible transfer to rehab and continue to follow closely.. Time with Patient: Greater than 30
--- NOTE | 2020-01-26 02:42 | P.PN ---
Subjective Progress Note Date: 01/25/20 Principal diagnosis: Severe dehydration with acute on chronic kidney disease stage III Patient is a 64-year-old male with a past medical history of coronary disease, history of CVA, TIA, dementia, diabetes type 2, history of hemodialysis, history of renal transplantation and GI bleed and hypertension hyperlipidemia and other multiple medical problems was admitted to hospital due to acute on chronic renal failure as well as COVID-19 last month. Patient was admitted to recently and was sent home. Patient came back to the hospital with progressive weakness and also swelling of the left arm. Evidently patient's works also and during the daytime patient was getting dehydrated and extremely weak. Patient was also having multiple falls. Current Covid test is negative. X-ray showed extensive pneumonia at this time as well. Currently patient is saturating well on room air. No fever no chills. Patient was admitted to the hospital due to failure to thrive and acute kidney injury. 01/24/2020 Patient is currently awake alert oriented and but does have underlying dementia. No complaints of chest pain or shortness of breath. Patient has been afebrile. Blood pressures fairly elevated. Patient is being continued on IV hydration with D5 normal saline. Patient went into hypoglycemia and was started on D5 saline. Laboratory data showed WBC 5.6, hemoglobin 11.5 and platelets 151 BUN 21 and creatinine 2.0 blood sugar was 413 patient is on Levemir 10 units tw ice daily 01/25/2020 Patient is currently lying in the bed comfortably. No complaints of chest pain or shortness of breath. No nausea vomiting or abdominal pain. Creatinine level improved to 1.8 today. Patient will be continued on IV hydration. Monitor blood sugars and titrate insulin dose. PT OT and possible discharge to rehab once renal function improves. Prognosis guarded.. Current medications reviewed. Objective - Vital Signs Vital signs: Vital Signs Temp 98.3 F 01/25/20 11:00 Pulse 82 01/25/20 11:00 Resp 18 01/25/20 11:00 BP 167/86 01/25/20 11:00 Pulse Ox 98 01/25/20 11:00 Intake & Output 01/24/20 01/25/20 01/25/20 18:59 06:59 18:59 Intake Total 240 Balance 240 Weight 65.771 kg Intake: Oral 240 Other: Voiding Method Toilet Toilet Toilet Self-Catheterization Self-Catheterization Self-Catheterization # Voids 3 - Exam PHYSICAL EXAMINATION: Patient is lying in the bed comfortably, no acute distress, awake alert and oriented.. HEENT: Normocephalic. Neck is supple. Pupils reactive. Nostrils clear. Oral cavity is moist. Ears reveal no drainage. Neck reveals no JVD, carotid bruits, or thyromegaly. CHEST EXAMINATION: Trachea is central. Symmetrical expansion. Bibasilar diminished air entry.Nonlabored breathing. CARDIAC: Normal S1, S2 with no gallops. No murmurs ABDOMEN: Soft. Bowel sounds normal. No organomegaly. No abdominal bruits. Extremities: reveal no edema. No clubbing or cyanosis LUE swelling anf previous AV fistula noted. Neurologically awake, alert, oriented x1-2 with well-coordinated movements. No focal deficits noted, dementia Skin: No rash or skin lesions. Psychiatric: Coperative. Nonsuicidal Musculoskeletal: No joint swelling or deformity. Normal range of motion. - Labs CBC & Chem 7: 01/25/20 07:14 01/25/20 13:49 Labs: Abnormal Lab Results - Last 24 Hours (Table) 01/24/20 01/24/20 01/24/20 Range/Units 17:28 17:45 20:13 RBC (4.30-5.90) m/uL Hgb (13.0-17.5) gm/dL Hct (39.0-53.0) % MCHC (31.0-37.0) g/dL Plt Count (150-450) k/uL Chloride (96-109) mmol/L Creatinine (0.6-1.5) mg/dL Est GFR (CKD-EPI)AfAm (60.0-200.0) Est GFR (CKD-EPI)NonAf (60.0-200.0) BUN/Creatinine Ratio (12.00-20.00) Ratio Glucose (70-110) mg/dL POC Glucose (mg/dL) 42 L 36 L 120 H (75-99) mg/dL Calcium (8.7-10.3) mg/dL 01/25/20 01/25/20 01/25/20 Range/Units 07:02 07:14 07:14 RBC 3.59 L (4.30-5.90) m/uL Hgb 10.4 L (13.0-17.5) gm/dL Hct 35.9 L (39.0-53.0) % MCHC 29.1 L (31.0-37.0) g/dL Plt Count 132 L (150-450) k/uL Chloride 110 H (96-109) mmol/L Creatinine 1.8 H (0.6-1.5) mg/dL Est GFR (CKD-EPI)AfAm 45.4 L (60.0-200.0) Est GFR (CKD-EPI)NonAf 39.2 L (60.0-200.0) BUN/Creatinine Ratio 9.44 L (12.00-20.00) Ratio Glucose 933 H* (70-110) mg/dL POC Glucose (mg/dL) 340 H (75-99) mg/dL Calcium 6.5 L (8.7-10.3) mg/dL 01/25/20 01/25/20 Range/Units 11:21 13:49 RBC (4.30-5.90) m/uL Hgb (13.0-17.5) gm/dL Hct (39.0-53.0) % MCHC (31.0-37.0) g/dL Plt Count (150-450) k/uL Chloride (96-109) mmol/L Creatinine (0.6-1.5) mg/dL Est GFR (CKD-EPI)AfAm (60.0-200.0) Est GFR (CKD-EPI)NonAf (60.0-200.0) BUN/Creatinine Ratio (12.00-20.00) Ratio Glucose 136 H (70-110) mg/dL POC Glucose (mg/dL) 235 H (75-99) mg/dL Calcium (8.7-10.3) mg/dL Microbiology - Last 24 Hours (Table) 01/23/20 10:03 Blood Culture - Preliminary Blood No Growth after 48 hours Assessment and Plan Assessment: Severe dehydration with acute on chronic kidney disease stage III Recent history of bilateral extensive COVID-19 pneumonia Left upper extremity swelling with previous history of AV fistula Gait dysfunction Multiple falls History of renal transplantation Coronary disease history History of CVA/TIA Dementia Diabetes type 2 Poor social support GERD History of GI bleed Hard of hearing Hypertension Hyperlipidemia History of [place] Hypothyroidism Diabetic peripheral neuropathy Depression History of nicotine dependence Patient is full code Plan: Patient be continued on IV hydration and follow-up renal function. Continue with PT OT and encourage oral intake. Patient was seen by vascular surgery due to left upper extremity edema and previous fistula. Recommended wrapping at this time no surgical intervention was needed. Possible transfer to rehab and continue to follow closely.. Time with Patient: Greater than 30
[2020-01-26] MEDS: DEXTROSE 5%-0.9% NACL 1,000 ML IV SCH ×2 (03:24→05:34)
[2020-01-26] MEDS: LEVOTHYROXINE 50 MCG TAB PO SCH (05:35)
[2020-01-26 06:57] LABS: Basophils % (A) 0 %; Eosinophils % (A) 1 %; HGB 10.4 gm/dL (13.0-17.5); Hypochromasia Slight; Lymphocytes % (A) 28 %; MCH 28.6 pg (25.0-35.0); MCHC 30.6 g/dL (31.0-37.0); Mean Platelet Volume 8.3; Monocytes # (A) 0.4 k/uL (0-1.0); Monocytes % (A) 6 %; Neutrophils # (A) 4.5 k/uL (1.3-7.7); Neutrophils % (A) 63 %; Platelet Count 131 k/uL (150-450); RBC 3.63 m/uL (4.30-5.90); RDW 15.4 % (11.5-15.5); WBC 7.1 k/uL (3.8-10.6)
[2020-01-26 07:04] LABS: MCV 93.6 fL (80.0-100.0)
[2020-01-26 07:06] LABS: Glucose,Whole Blood 63 mg/dL (75-99)
[2020-01-26 07:33] LABS: Glucose,Whole Blood 72 mg/dL (75-99)
[2020-01-26 09:21] LABS: African American GFR (CKD) 42.5 (60.0-200.0); Anion Gap 6.5 mmol/L (4.00-12.00); BUN/Creat Ratio 8.95 Ratio (12.00-20.00); Calcium 7.8 mg/dL (8.7-10.3); Carbon Dioxide 24.5 mmol/L (21.6-31.8); Non-African American GFR(CKD) 36.7 (60.0-200.0); Potassium 4.5 mmol/L (3.5-5.5)
[2020-01-26] MEDS: INSULIN ASPART (NovoLOG) 100 UNIT/ML VIAL SQ SCH ×2 (09:23→12:09)
[2020-01-26] MEDS: INSULIN DETEMIR (LEVEMIR) 100 UNIT/ML SYR SQ SCH (09:23)
[2020-01-26] MEDS: ONDANSETRON ODT 4 MG TAB PO SCH (09:26)
[2020-01-26] MEDS: PANTOPRAZOLE 40 MG/10 ML VIAL IVP SCH (09:26)
[2020-01-26] MEDS: CLOPIDOGREL 75 MG TAB PO SCH (09:26)
[2020-01-26] MEDS: METOCLOPRAMIDE 5 MG TAB PO SCH (09:26)
[2020-01-26] MEDS: hydrALAZINE HCL 25 MG TAB PO SCH ×2 (09:26→15:08)
[2020-01-26] MEDS: TACROLIMUS 1 MG CAP PO SCH (09:27)
[2020-01-26 12:05] LABS: Glucose,Whole Blood 116 mg/dL (75-99)
[2020-01-26] MEDS: MYCOPHENOLATE SODIUM DR 180 MG TABLET.DR PO SCH (12:10)
[2020-01-26 12:26] VITALS: BP 189/87; PULSE 84; RESP 20; TEMP 97.7
--- NOTE | 2020-01-26 15:10 | P.DS ---
Providers Date of admission: 01/23/20 12:43 Expected date of discharge: 01/26/20 Attending physician: Nate Forde Consults: 01/23/20 12:44 Consult Physician Routine Consulting Provider: Rasheed Vang Consult Reason/Comments: Left arm fistula malfunction Do you want consulting provider notified?: Already Contacted Primary care physician: [facility] Hospital Course: Final diagnosis Severe dehydration with acute on chronic kidney disease stage III Recent history of bilateral extensive COVID-19 pneumonia Left upper extremity swelling with previous history of AV fistula Gait dysfunction Multiple falls History of renal transplantation Coronary disease history History of CVA/TIA Dementia Diabetes type 2 Poor social support GERD History of GI bleed Hard of hearing Hypertension Hyperlipidemia History of SD Hypothyroidism Diabetic peripheral neuropathy Depression History of nicotine dependence full code Discharge disposition Patient is being discharged in a stable condition with guarded prognosis to [facility] for continued PT/OT therapy. Patient will follow-up with [facility] in the outpatient setting upon discharge. Total time taken is greater than 35 minutes. History of present illness This is a 64-year-old male who was recently admitted with severe dehydration along with acute on chronic kidney disease stage III and was being closely monitored. Patient was also found to have Covid 19 last month that was hospitalized and sent home. Patient continued to have weakness and also swelling of the left arm along with multiple falls. Patient was evaluated by vascular surgery as he had a fistula there of the left upper extremity and recommend a Baljinder wraps and elevation and no surgical intervention at this time. Doppler study was negative. Patient continues to have variations in blood sugars and will continue on sliding scale and continue with Accu-Cheks before meals at bedtime. Patient's diet being advanced as he was tolerating clear liquids with no reports of nausea or vomiting noted. Creatinine is 1.9 although improving and will need repeat labs in 2-3 days to monitor. Currently no reports of chest pain, shortness of breath, or palpitations. Patient is afebrile. No reports of nausea or vomiting and patient is tolerating diet. Patient will be going to [facility] today. On exam vital signs are stable. Temp is 97.7F, pulse is 84, respirations are 20, blood pressure is 164/85, oxygen saturation is 99% on room air. Cardio S1, S2 are muffled. Respiratory system shows diminished breath sounds at the bases with no wheezing or rhonchi noted. Abdomen is soft and nontender. Nervous system shows diffuse weakness. Please refer to medication reconciliation sheet for a list of medications. Patient Condition at Discharge: Fair Plan - Discharge Summary Discharge Rx Participant: No New Discharge Prescriptions: Continue Atorvastatin [Lipitor] 80 mg PO HS #30 tab Mycophenolate Sodium [Mycophenolic Acid] 720 mg PO BID Levothyroxine Sodium [Synthroid] 50 mcg PO DAILY hydrALAZINE HCL [Apresoline] 25 mg PO TID 30 Days #90 tab Clopidogrel [Plavix] 75 mg PO DAILY 30 Days #30 tab Insulin Aspart [NovoLOG Flexpen] See Protocol SQ AC-TID Pantoprazole Sodium [Protonix] 40 mg PO BID Sertraline HCl [Zoloft] 100 mg PO HS Tacrolimus [Prograf] 2 mg PO BID Insulin Detemir (Levemir) [Levemir] 10 unit SQ BID Ondansetron Odt [Zofran ODT] 4 mg PO BID Metoclopramide [Reglan] 5 mg PO BID Discharge Medication List Atorvastatin [Lipitor] 80 mg PO HS #30 tab 09/27/15 [Rx] Levothyroxine Sodium [Synthroid] 50 mcg PO DAILY 03/13/17 [History] Mycophenolate Sodium [Mycophenolic Acid] 720 mg PO BID 03/13/17 [History] Clopidogrel [Plavix] 75 mg PO DAILY 30 Days #30 tab 01/22/19 [Rx] hydrALAZINE HCL [Apresoline] 25 mg PO TID 30 Days #90 tab 01/22/19 [Rx] Insulin Aspart [NovoLOG Flexpen] See Protocol SQ AC-TID 04/01/19 [History] Pantoprazole Sodium [Protonix] 40 mg PO BID 08/12/19 [History] Sertraline HCl [Zoloft] 100 mg PO HS 08/12/19 [History] Tacrolimus [Prograf] 2 mg PO BID 10/31/19 [History] Insulin Detemir (Levemir) [Levemir] 10 unit SQ BID 12/31/19 [History] Ondansetron Odt [Zofran ODT] 4 mg PO BID 12/31/19 [History] Metoclopramide [Reglan] 5 mg PO BID 01/23/20 [History] Follow up Appointment(s)/Referral(s): [facility],Clinic [Primary Care Provider] - 1-2 days Ambulatory/Diagnostic Orders: Basic Metabolic Panel [LAB.AMB] Time Frame: 2 Days, Location: None Selected Activity/Diet/Wound Care/Special Instructions: Patient is going to [employer] Activity as tolerated Continue current diet Continue monitoring blood sugars before meals at bedtime treat accordingly Follow-up with primary care provider upon discharge Repeat labs in 2-3 days to monitor renal function Discharge Disposition: TRANSFER TO SNF/ECF
== END 2020-01-26 18:06 | DRG 699 ==
LOC: EC 08:07 → 4SSUR 12:43 → 6NMEDSUR 14:43
PROVIDERS: ADMIT Hospitalist; ATTEND Hospitalist
DX: T86.19 Other complication of kidney transplant (principal); N17.9 Acute kidney failure, unspecified; E87.1 Hypo-osmolality and hyponatremia; Z94.0 Kidney transplant status; E11.649 Type 2 diabetes mellitus with hypoglycemia without coma; E11.319 Type 2 diabetes mellitus with unspecified diabetic retinopathy without macular edema; R62.7 Adult failure to thrive; E11.42 Type 2 diabetes mellitus with diabetic polyneuropathy; E11.43 Type 2 diabetes mellitus with diabetic autonomic (poly)neuropathy; F01.50 Vascular dementia, unspecified severity, without behavioral disturbance, psychotic disturbance, mood disturbance, and anxiety; N18.30 Chronic kidney disease, stage 3 unspecified; E11.22 Type 2 diabetes mellitus with diabetic chronic kidney disease; Z79.4 Long term (current) use of insulin; E86.0 Dehydration; E83.42 Hypomagnesemia; Z20.828 Contact with and (suspected) exposure to other viral communicable diseases; R29.6 Repeated falls; E78.5 Hyperlipidemia, unspecified; H91.90 Unspecified hearing loss, unspecified ear; I25.10 Atherosclerotic heart disease of native coronary artery without angina pectoris; K21.9 Gastro-esophageal reflux disease without esophagitis; K31.84 Gastroparesis; F32.9 Major depressive disorder, single episode, unspecified; I12.9 Hypertensive chronic kidney disease with stage 1 through stage 4 chronic kidney disease, or unspecified chronic kidney disease; R26.9 Unspecified abnormalities of gait and mobility; Y83.0 Surgical operation with transplant of whole organ as the cause of abnormal reaction of the patient, or of later complication, without mention of misadventure at the time of the procedure; E03.9 Hypothyroidism, unspecified; H54.7 Unspecified visual loss; R60.0 Localized edema; Z71.3 Dietary counseling and surveillance; I25.2 Old myocardial infarction; Z68.21 Body mass index [BMI] 21.0-21.9, adult; Z79.899 Other long term (current) drug therapy; Z79.02 Long term (current) use of antithrombotics/antiplatelets; Z79.890 Hormone replacement therapy; Z86.73 Personal history of transient ischemic attack (TIA), and cerebral infarction without residual deficits; Z87.19 Personal history of other diseases of the digestive system; Z87.01 Personal history of pneumonia (recurrent); Z87.440 Personal history of urinary (tract) infections; Z85.828 Personal history of other malignant neoplasm of skin; Z95.5 Presence of coronary angioplasty implant and graft; Z98.890 Other specified postprocedural states; Z87.891 Personal history of nicotine dependence; Z91.81 History of falling; Z63.8 Other specified problems related to primary support group; Z86.19 Personal history of other infectious and parasitic diseases; Z81.8 Family history of other mental and behavioral disorders; Z83.3 Family history of diabetes mellitus; Z82.49 Family history of ischemic heart disease and other diseases of the circulatory system
CPT/HCPCS: 36415; 71046; 80048; 80053; 82550; 82728; 82947; 83605; 83615; 83735; 84145; 85025; 85379; 85610; 85730; 86140; 87040; 87502; 87635; 93005; 96365; 99285

== ENCOUNTER 2020-01-28 15:59 | Observation (INO) | payer MEDICARE ==
--- NOTE | 2020-01-28 16:21 | ED ---
General Adult HPI - General Chief complaint: Nausea/Vomiting/Diarrhea Stated complaint: GI bleed Time Seen by Provider: 01/28/20 16:07 Source: patient Mode of arrival: EMS Limitations: physical limitation - History of Present Illness Initial comments: Dictation was produced using [employer] dictation software. please excuse any grammatical, word or spelling errors. This patient was cared for during a federal and state declared state of emergency secondary to Covid 19 Chief Complaint: 64-year-old male multiple comorbid disease presents with nausea vomiting. History of Present Illness: 64-year-old male he is a poor historian. Is brought in by EMS from one of the local nursing homes. Patient has history of gastroparesis. He was found to have multiple bouts of nausea and vomiting at the intermediate. They did do a Gastroccult test that was positive for blood. He has extensive history of GI disease.. EMS is not at bedside to aid in providing history of present illness. Chart review shows that patient was just admitted to the hospital 2 days ago. He is admitted for severe dehydration with acute on chronic kidney disease. She did have cold with 19 last month. The ROS documented in this emergency department record has been reviewed and confirmed by me. Those systems with pertinent positive or negative responses have been documented in the HPI. All other systems are other negative and/or noncontributory. PHYSICAL EXAM: General Impression: Alert and oriented x3, not in acute distress HEENT: Normocephalic atraumatic, extra-ocular movements intact, pupils equal and reactive to light bilaterally, mucous membranes moist. Cardiovascular: Heart regular rate and rhythm Chest: Able to complete full sentences, no retractions, no tachypnea Abdomen: abdomen soft, non-tender, non-distended, no organomegaly Musculoskeletal: Pulses present and equal in all extremities, no peripheral edema Motor: no focal deficits noted Neurological: CN II-XII grossly intact, no focal motor or sensory deficits noted Skin: Intact with no visualized rashes Psych: Normal affect and mood Rectal exam: No gross blood on digital rectal exam, no source of bleeding noted from external observation. ED course: 64-year-old male brought into the emergency department for nausea vomiting and positive Gastroccult blood stool. Vital signs upon arrival shows heart rate 104, respiratory signs within acceptable limits. Chart review was performed. Labs that were performed earlier today were available in our electronic medical record. He did have a positive Gastroccult stool. At that time was also hypoglycemic with the level XLII. Patient is insulin-dependent diabetic. Hemoglobin appears to be within his usual baseline. Labs today shows normal CBC. Metabolic panel is within acceptable limits. Except for magnesium slightly depressed at 1.2. Stool occult is negative. Patient given oral magnesium. Patient Protonix. Patient reevaluated with GI consultation. Case discussed with Dr. Rodriguez was went except patient's care. EKG interpretation: Ventricular rate 100, normal sinus rhythm,. Interval 142, QRS 90, QTc 443. No MS prolongation, no QTC prolongation, no ST or T-wave changes noted. EKG compared to over 06/09/2019 showing no changes. Overall, this EKG is unremarkable - Related Data Home Medications Medication Instructions Recorded Confirmed Levothyroxine Sodium [Synthroid] 50 mcg PO DAILY@0600 03/13/17 01/28/20 Mycophenolate Sodium [Mycophenolic 720 mg PO BID@0800,1700 03/13/17 01/28/20 Acid] Pantoprazole Sodium [Protonix] 40 mg PO BID@0800,1700 08/12/19 01/28/20 Sertraline HCl [Zoloft] 100 mg PO HS@209908/12/19 01/28/20 Tacrolimus [Prograf] 2 mg PO BID@0800,1700 10/31/19 01/28/20 Insulin Detemir (Levemir) [Levemir] 10 unit SQ BID@0800,199912/31/19 01/28/20 Metoclopramide [Reglan] 5 mg PO BID@0800,1700 01/23/20 01/28/20 Atorvastatin [Lipitor] 80 mg PO HS@2100 01/28/20 01/28/20 Clopidogrel [Plavix] 75 mg PO DAILY@0800 01/28/20 01/28/20 INSULIN ASPART (NovoLOG) [NovoLOG See Protocol SQ ACHS 01/28/20 01/28/20 (formulary)] Magnesium Hydroxide [Milk of 2,400 mg PO DAILY PRN 01/28/20 01/28/20 Magnesia] Na Phos,M-B/Na Phos,Di-Ba [Fleet 133 ml RECTAL DAILY PRN 01/28/20 01/28/20 Adult] Ondansetron [Zofran] 4 mg PO Q12HR 01/28/20 01/28/20 bisacodyL [Dulcolax] 10 mg RECTAL DAILY PRN 01/28/20 01/28/20 hydrALAZINE HCL [Apresoline] 25 mg PO TID@0800,1200,1700 01/28/20 01/28/20 ondansetron HCL [Zofran Oral Soln] 4 mg IM ONCE 01/28/20 01/28/20 Allergies Allergy/AdvReac Type Severity Reaction Status Date / Time No Known Allergies Allergy Verified 01/28/20 17:57 Review of Systems ROS Statement: Those systems with pertinent positive or pertinent negative responses have been documented in the HPI. ROS Other: All systems not noted in ROS Statement are negative. Past Medical History Past Medical History: Coronary Artery Disease (CAD), Cancer, Chest Pain / Angina , CVA/TIA, Dementia, Diabetes Mellitus, Dialysis, Eye Disorder, GERD/Reflux, GI Bleed, Hearing Disorder / Deafness, Hyperlipidemia, Hypertension, Myocardial Infarction (NE), Pneumonia, Renal Disease, Thyroid Disorder Additional Past Medical History / Comment(s): acute renal failure, covid 19, mild hyponatremia, asymptomatic bacturia. Other hx: IDDM type II, neuropathy bilateral legs/feet, retinopathy bilaterally and is nearly blind, gastroparesis, ESRD with past hemo/peritoneal dialysis and in 2010 received kidney transplant, CKD stageIV-pt states it has been recommended he has hemodialysis but he is not willing to do so, recurrent UTIs, UTI with sepsis, incomplete bladder emptying/self cathed on occasion in the past, incontinent of urine at times, TIAs, 2013 fall with multiple fractured ribs, vascular dementia, skin cancer with removal, upper GI bleed, hypomagnesemia Last Myocardial Infarction Date:: 01/2019 History of Any Multi-Drug Resistant Organisms: None Reported Date of last positivie culture/infection: "years ago" MDRO Source:: stool Past Surgical History: Heart Catheterization, Heart Catheterization With Stent Additional Past Surgical History / Comment(s): 01/2019 cardiac cath tx medically, PCI with stents in 2012 and 2015, kidney transplant November 2010, patient has an AV fistula in the left upper extremity, colonoscopy, skin cancer removal , bilateral eye retinal bleeds with surgery, teeth extractions. Past Anesthesia/Blood Transfusion Reactions: No Reported Reaction Date of Last Stent Placement:: 09/2015 Past Psychological History: Depression Smoking Status: Former smoker - Past Family History Brother(s) Additional Family Medical History / Comment(s): Brother had depression and comitted suicide. Father Family Medical History: Diabetes Mellitus Additional Family Medical History / Comment(s): Father lived into his 90s. Mother Family Medical History: Myocardial Infarction (NE) Additional Family Medical History / Comment(s): Mother of a NE at the age of 57yrs. General Exam Limitations: physical limitation Course Vital Signs 01/28/20 16:02 Temperature 99.0 F Pulse Rate 104 H Respiratory 18 Rate Blood Pressure 188/101 O2 Sat by Pulse 99 Oximetry Medical Decision Making - Lab Data Result diagrams: 01/28/20 16:24 01/28/20 16:24 Lab Results 01/28/20 01/28/20 01/28/20 Range/Units 16:24 16:24 16:24 WBC 8.2 (3.8-10.6) k/uL RBC 3.98 L (4.30-5.90) m/uL Hgb 11.4 L (13.0-17.5) gm/dL Hct 36.7 L (39.0-53.0) % MCV 92.3 (80.0-100.0) fL MCH 28.8 (25.0-35.0) pg MCHC 31.2 (31.0-37.0) g/dL RDW 15.4 (11.5-15.5) % Plt Count 152 (150-450) k/uL MPV 8.9 Neutrophils % 80 % Lymphocytes % 14 % Monocytes % 5 % Eosinophils % 0 % Basophils % 0 % Neutrophils # 6.6 (1.3-7.7) k/uL Lymphocytes # 1.1 (1.0-4.8) k/uL Monocytes # 0.4 (0-1.0) k/uL Eosinophils # 0.0 (0-0.7) k/uL Basophils # 0.0 (0-0.2) k/uL Sodium 136 L (137-145) mmol/L Potassium 5.2 H (3.5-5.1) mmol/L Chloride 104 (98-107) mmol/L Carbon Dioxide 28 (22-30) mmol/L Anion Gap 4 mmol/L BUN 22 H (9-20) mg/dL Creatinine 2.17 H (0.66-1.25) mg/dL Est GFR (CKD-EPI)AfAm 36 (>60 ml/min/1.73 sqM) Est GFR (CKD-EPI)NonAf 31 (>60 ml/min/1.73 sqM) Glucose 181 H (74-99) mg/dL Calcium 8.2 L (8.4-10.2) mg/dL Magnesium 1.2 L (1.6-2.3) mg/dL Total Bilirubin 0.7 (0.2-1.3) mg/dL AST 18 (17-59) U/L ALT 13 (4-49) U/L Alkaline Phosphatase 130 H (38-126) U/L Total Protein 5.1 L (6.3-8.2) g/dL Albumin 2.9 L (3.5-5.0) g/dL Lipase 13 L (23-300) U/L Stool Occult Blood (Negative) Blood Type O Positive Blood Type Recheck O Pos Bld Type Recheck Status No Antibody Screen NEGATIVE Spec Expiration Date 01/31/2020 - 232301/28/20 Range/Units 16:56 WBC (3.8-10.6) k/uL RBC (4.30-5.90) m/uL Hgb (13.0-17.5) gm/dL Hct (39.0-53.0) % MCV (80.0-100.0) fL MCH (25.0-35.0) pg MCHC (31.0-37.0) g/dL RDW (11.5-15.5) % Plt Count (150-450) k/uL MPV Neutrophils % % Lymphocytes % % Monocytes % % Eosinophils % % Basophils % % Neutrophils # (1.3-7.7) k/uL Lymphocytes # (1.0-4.8) k/uL Monocytes # (0-1.0) k/uL Eosinophils # (0-0.7) k/uL Basophils # (0-0.2) k/uL Sodium (137-145) mmol/L Potassium (3.5-5.1) mmol/L Chloride (98-107) mmol/L Carbon Dioxide (22-30) mmol/L Anion Gap mmol/L BUN (9-20) mg/dL Creatinine (0.66-1.25) mg/dL Est GFR (CKD-EPI)AfAm (>60 ml/min/1.73 sqM) Est GFR (CKD-EPI)NonAf (>60 ml/min/1.73 sqM) Glucose (74-99) mg/dL Calcium (8.4-10.2) mg/dL Magnesium (1.6-2.3) mg/dL Total Bilirubin (0.2-1.3) mg/dL AST (17-59) U/L ALT (4-49) U/L Alkaline Phosphatase (38-126) U/L Total Protein (6.3-8.2) g/dL Albumin (3.5-5.0) g/dL Lipase (23-300) U/L Stool Occult Blood Negative (Negative) Blood Type Blood Type Recheck Bld Type Recheck Status Antibody Screen Spec Expiration Date Disposition Clinical Impression: GI bleed Disposition: ADMITTED IP TO THIS [facility] Condition: Fair Referrals: Luis Felipe Calderon DO [Primary Care Provider] - 1-2 days Decision Time: 18:32
[2020-01-28 16:43] LABS: Basophils % (A) 0 %; Eosinophils % (A) 0 %; HCT 36.7 % (39.0-53.0); HGB 11.4 gm/dL (13.0-17.5); Lymphocytes # (A) 1.1 k/uL (1.0-4.8); Lymphocytes % (A) 14 %; MCH 28.8 pg (25.0-35.0); MCHC 31.2 g/dL (31.0-37.0); MCV 92.3 fL (80.0-100.0); Mean Platelet Volume 8.9; Monocytes # (A) 0.4 k/uL (0-1.0); Monocytes % (A) 5 %; Neutrophils # (A) 6.6 k/uL (1.3-7.7); Neutrophils % (A) 80 %; Platelet Count 152 k/uL (150-450); RBC 3.98 m/uL (4.30-5.90); RDW 15.4 % (11.5-15.5); WBC 8.2 k/uL (3.8-10.6)
[2020-01-28 17:43] LABS: Albumin 2.9 g/dL (3.5-5.0); Calcium 8.2 mg/dL (8.4-10.2); Magnesium 1.2 mg/dL (1.6-2.3); Potassium 5.2 mmol/L (3.5-5.1); Total Bilirubin 0.7 mg/dL (0.2-1.3); Total Protein 5.1 g/dL (6.3-8.2)
[2020-01-28] MEDS ORDERED: ONDANSETRON 4 MG/2 ML VIAL IVP STA (18:05)
[2020-01-28] MEDS ORDERED: MAGNESIUM OXIDE 400 MG TAB PO STA (18:17)
[2020-01-28] MEDS ORDERED: PANTOPRAZOLE 40 MG/10 ML VIAL IVP STA (18:22)
[2020-01-28] MEDS ORDERED: ONDANSETRON 4 MG/2 ML VIAL IVP PRN (18:27)
[2020-01-28] MEDS ORDERED: NALOXONE 0.4 MG/ML 1 ML VIAL IV PRN (18:27)
[2020-01-28] MEDS ORDERED: hydrALAZINE HCL 20 MG/ML 1 ML VIAL IVP STA (18:30)
[2020-01-28] MEDS: SODIUM CHLORIDE 0.9% 1,000 ML IV SCH (18:42)
[2020-01-28 18:52] LABS: Appearance,Urine Cloudy (Clear); Bilirubin,Urine Negative (Negative); Blood,Urine Small (Negative); Color,Urine Light Yellow; Glucose,Urine (UA) Negative (Negative); Ketones,Urine Negative (Negative); Leukocyte Esterase,Urine Large (Negative); Mucus,Urine Rare /hpf; Nitrite,Urine Negative (Negative); PH, Urine 7.5 (5.0-8.0); Protein,Urine 1+ (Negative); RBC,Urine 7 /hpf (0-5); Squamous Epithelial Cell,Urine <1 /hpf (0-4); Urobilinogen,Urine <2.0 mg/dL (<2.0); WBC,Urine 146 /hpf (0-5)
[2020-01-28] MEDS ORDERED: ONDANSETRON 4 MG TAB PO PRN (19:26)
[2020-01-28] MEDS ORDERED: NA PHOS,M-B/NA PHOS,DI-BA 133 ML ENEMA RECTAL PRN (19:26)
[2020-01-28] MEDS ORDERED: bisacodyL 10 MG SUPP RECTAL PRN (19:26)
[2020-01-28] MEDS ORDERED: hydrALAZINE HCL 25 MG TAB PO PRN (19:29)
[2020-01-28 22:51] LABS: Glucose,Whole Blood 280 mg/dL (75-99)
[2020-01-28 22:51] LABS: Glucose,Whole Blood 274 mg/dL (75-99)
[2020-01-28] MEDS: ATORVASTATIN 80 MG TAB PO SCH (22:56)
[2020-01-28] MEDS: SERTRALINE 100 MG TAB PO SCH (22:56)
[2020-01-29 00:19] LABS: Glucose,Whole Blood 313 mg/dL (75-99)
[2020-01-29] MEDS: INSULIN DETEMIR (LEVEMIR) 100 UNIT/ML SYR SQ SCH ×3 (00:19→22:56)
[2020-01-29] MEDS: INSULIN ASPART (NovoLOG) 100 UNIT/ML VIAL SQ SCH ×4 (00:21→22:56)
[2020-01-29] MEDS: LEVOTHYROXINE 50 MCG TAB PO SCH (06:02)
[2020-01-29] MEDS: SODIUM CHLORIDE 0.9% 1,000 ML IV SCH (06:04)
[2020-01-29 06:06] LABS: Glucose,Whole Blood 226 mg/dL (75-99)
[2020-01-29] MEDS: hydrALAZINE HCL 25 MG TAB PO SCH ×3 (08:44→16:07)
[2020-01-29] MEDS: TACROLIMUS 1 MG CAP PO SCH ×2 (08:45→16:07)
[2020-01-29] MEDS: MYCOPHENOLATE SODIUM DR 180 MG TABLET.DR PO SCH ×2 (08:45→16:07)
[2020-01-29] MEDS: PANTOPRAZOLE 40 MG/10 ML VIAL IV SCH (08:45)
[2020-01-29 10:49] LABS: Basophils % (A) 0 %; Eosinophils % (A) 1 %; HCT 36.9 % (39.0-53.0); HGB 11.8 gm/dL (13.0-17.5); Hypochromasia Slight; Lymphocytes # (A) 1.3 k/uL (1.0-4.8); Lymphocytes % (A) 16 %; MCH 29.9 pg (25.0-35.0); MCV 93.7 fL (80.0-100.0); Mean Platelet Volume 8.5; Monocytes # (A) 0.5 k/uL (0-1.0); Monocytes % (A) 6 %; Neutrophils # (A) 6.1 k/uL (1.3-7.7); Neutrophils % (A) 76 %; Platelet Count 133 k/uL (150-450); RBC 3.94 m/uL (4.30-5.90); RDW 15.3 % (11.5-15.5)
[2020-01-29 11:14] LABS: Calcium 8.1 mg/dL (8.4-10.2); Potassium 4.9 mmol/L (3.5-5.1)
[2020-01-29] MEDS: HEPARIN SODIUM,PORCINE 5,000 UNIT/ML 1 ML VIAL SQ SCH ×2 (16:06→20:32)
[2020-01-29 17:04] LABS: Glucose,Whole Blood 233 mg/dL (75-99)
--- NOTE | 2020-01-29 18:09 | P.HPIM ---
History of Present Illness This is a pleasant 64 years old male with multiple medical problems as below. Presents because of nausea vomiting, patient states that his nausea vomiting is very frequent without specific lesion both almost like every 1 hour however he denies abdominal pain, no chest pain or dyspnea. No diarrhea. Also patient denies any urinary symptoms like no dysuria or increased frequency. No dizziness. Patient denies smoking, alcohol or illicit drugs. Has occasional coughing. Vitas looks stable, is tachycardic of 107. Labs show an unremarkable CBC, creatinine is elevated at 2.4, which is close to his baseline EKG shows sinus tachycardia at [address]-T changes. In the emergency room he was started on normal saline at 80 mL per hour. Occult blood in his stool is negative GI team were consulted from the ED Review of Systems CONSTITUTIONAL: No fever, no malaise, no fatigue. HEENT: No recent visual problems or hearing problems. Denied any sore throat. CARDIOVASCULAR: No orthopnea, PND, no palpitations, no syncope. PULMONARY: No shortness of breath, no hemoptysis. GASTROINTESTINAL: No diarrhea,no abdominal pain. Normoactive bowel sounds. NEUROLOGICAL: No headaches, no weakness, no numbness. HEMATOLOGICAL: Denies any bleeding or petechiae. GENITOURINARY: Denies any burning micturition, frequency, or urgency. MUSCULOSKELETAL/RHEUMATOLOGICAL: Denies any joint pain, swelling, or any muscle pain. ENDOCRINE: Denies any polyuria or polydipsia. Past Medical History Past Medical History: Coronary Artery Disease (CAD), Cancer, Chest Pain / Angina, CVA/TIA, Dementia, Diabetes Mellitus, Dialysis, Eye Disorder, GERD/Reflux, GI Bleed, Hyperlipidemia, Hypertension, Myocardial Infarction (PR), Pneumonia, Renal Disease, Thyroid Disorder Additional Past Medical History / Comment(s): acute renal failure, covid 19, mild hyponatremia, asymptomatic bacturia. Other hx: IDDM type II, neuropathy bilateral legs/feet, retinopathy bilaterally and is nearly blind, gastroparesis, ESRD with past hemo/peritoneal dialysis and in 2010 received kidney transplant, CKD stageIV-pt states it has been recommended he has hemodialysis but he is not willing to do so, recurrent UTIs, UTI with sepsis, incomplete bladder emptying/self cathed on occasion in the past, incontinent of urine at times, TIAs, 2014 fall with multiple fractured ribs, vascular dementia, skin cancer with removal, upper GI bleed, hypomagnesemia Last Myocardial Infarction Date:: 01/2019 History of Any Multi-Drug Resistant Organisms: None Reported Date of last positivie culture/infection: "years ago" MDRO Source:: stool Past Surgical History: Heart Catheterization, Heart Catheterization With Stent Additional Past Surgical History / Comment(s): 01/2019 cardiac cath tx medically, PCI with stents in 2012 and 2015, kidney transplant November 2010, patient has an AV fistula in the left upper extremity, colonoscopy, skin cancer removal , bilateral eye retinal bleeds with surgery, teeth extractions. Past Anesthesia/Blood Transfusion Reactions: No Reported Reaction Date of Last Stent Placement:: 09/2015 Past Psychological History: Depression Additional Psychological History / Comment(s): Pt resides with his spouse. He is legally blind. He uses a magnifier to read. Pt states spouse works during daytime. He uses a walker or cane to ambulate. He has a glucometer. Smoking Status: Never smoker Past Alcohol Use History: None Reported Additional Past Alcohol Use History / Comment(s): Pt quit smoking 03/20/19. He had been smoking since he was 13 years old. He does have history of alcoholism has been alcohol free for 9 years. Past Drug Use History: None Reported - Past Family History Brother(s) Additional Family Medical History / Comment(s): Brother had depression and comitted suicide. Father Family Medical History: Diabetes Mellitus Additional Family Medical History / Comment(s): Father lived into his 90s. Mother Family Medical History: Myocardial Infarction (PR) Additional Family Medical History / Comment(s): Mother of a PR at the age of 57yrs. Medications and Allergies Home Medications Medication Instructions Recorded Confirmed Type Levothyroxine Sodium [Synthroid] 50 mcg PO DAILY@0600 03/13/17 01/28/20 History Mycophenolate Sodium [Mycophenolic 720 mg PO BID@0800,1700 03/13/17 01/28/20 History Acid] Pantoprazole Sodium [Protonix] 40 mg PO BID@0800,1700 08/12/19 01/28/20 History Sertraline HCl [Zoloft] 100 mg PO HS@2100 08/12/19 01/28/20 History Tacrolimus [Prograf] 2 mg PO BID@0800,1700 10/31/19 01/28/20 History Insulin Detemir (Levemir) [Levemir] 10 unit SQ BID@0800,2000 12/31/19 01/28/20 History Metoclopramide [Reglan] 5 mg PO BID@0800,1700 01/23/20 01/28/20 History Atorvastatin [Lipitor] 80 mg PO HS@2100 01/28/20 01/28/20 History Clopidogrel [Plavix] 75 mg PO DAILY@0800 01/28/20 01/28/20 History INSULIN ASPART (NovoLOG) [NovoLOG See Protocol SQ ACHS 01/28/20 01/28/20 History (formulary)] Magnesium Hydroxide [Milk of 2,400 mg PO DAILY PRN 01/28/20 01/28/20 History Magnesia] Na Phos,M-B/Na Phos,Di-Ba [Fleet 133 ml RECTAL DAILY PRN 01/28/20 01/28/20 History Adult] Ondansetron [Zofran] 4 mg PO Q12HR 01/28/20 01/28/20 History bisacodyL [Dulcolax] 10 mg RECTAL DAILY PRN 01/28/20 01/28/20 History hydrALAZINE HCL [Apresoline] 25 mg PO TID@0800,1200,1700 01/28/20 01/28/20 History ondansetron HCL [Zofran Oral Soln] 4 mg IM ONCE 01/28/20 01/28/20 History Allergies Allergy/AdvReac Type Severity Reaction Status Date / Time No Known Allergies Allergy Verified 01/28/20 17:57 Physical Exam Vitals: Vital Signs Temp Pulse Pulse Resp BP BP Pulse Ox 01/29/20 09:00 98.0 F 107 H 16 133/68 99 01/29/20 03:00 97.9 F 102 H 15 152/71 98 01/29/20 01:17 97.6 F 126 H 18 132/67 99 01/28/20 21:00 126 H 18 01/28/20 20:51 97.6 F 126 H 18 132/67 99 01/28/20 20:44 98.8 F 01/28/20 20:41 113 H 16 158/85 96 01/28/20 20:00 113 H 20 146/80 01/28/20 18:43 105 H 18 189/104 97 01/28/20 16:02 99.0 F 104 H 18 188/101 99 Intake and Output 01/28/20 01/29/20 01/29/20 22:59 06:59 14:59 Intake Total 450 Balance 450 Intake: Intake, IV Titration 450 Amount Sodium Chloride 0.9% 1, 400 000 ml @ 80 mls/hr IV . [id number] G[facility] Rx#:[id number] cefTRIAXone 1 gm In 50 Sodium Chloride 0.9% 50 ml @ 100 mls/hr IVPB Q24HR G[facility]Y Rx#:[id number] Other: Voiding Method Toilet Toilet # Voids 1 1 Weight 64.41 kg GENERAL: The patient is alert and oriented x3, not in any acute distress. Well developed, well nourished. HEENT: Pupils are round and equally reacting to light. EOMI. No scleral icterus. No conjunctival pallor. Normocephalic, atraumatic. No pharyngeal erythema. No thyromegaly. CARDIOVASCULAR: S1 and S2 present. No murmurs, rubs, or gallops. PULMONARY: Chest is clear to auscultation, no wheezing or crackles. ABDOMEN: Soft, nontender, nondistended, normoactive bowel sounds. No palpable o rganomegaly. MUSCULOSKELETAL: No joint swelling or deformity. EXTREMITIES: No cyanosis, clubbing, or pedal edema. NEUROLOGICAL: Gross neurological examination did not reveal any focal deficits. SKIN: No rashes. No petechiae Results CBC & Chem 7: 01/29/20 10:36 01/29/20 10:36 Labs: Abnormal Lab Results - Last 24 Hours (Table) 01/28/20 01/28/20 01/28/20 Range/Units 16:24 16:24 18:01 RBC 3.98 L (4.30-5.90) m/uL Hgb 11.4 L (13.0-17.5) gm/dL Hct 36.7 L (39.0-53.0) % Plt Count (150-450) k/uL Sodium 136 L (137-145) mmol/L Potassium 5.2 H (3.5-5.1) mmol/L BUN 22 H (9-20) mg/dL Creatinine 2.17 H (0.66-1.25) mg/dL Glucose 181 H (74-99) mg/dL POC Glucose (mg/dL) (75-99) mg/dL Calcium 8.2 L (8.4-10.2) mg/dL Magnesium 1.2 L (1.6-2.3) mg/dL Alkaline Phosphatase 130 H (38-126) U/L Total Protein 5.1 L (6.3-8.2) g/dL Albumin 2.9 L (3.5-5.0) g/dL Lipase 13 L (23-300) U/L Urine Protein 1+ H (Negative) Urine Blood Small H (Negative) Ur Leukocyte Esterase Large H (Negative) Urine RBC 7 H (0-5) /hpf Urine WBC 146 H (0-5) /hpf Urine WBC Clumps Occasional H (None) /hpf Urine Mucus Rare H (None) /hpf 01/28/20 01/28/20 01/29/20 Range/Units 22:47 22:48 00:17 RBC (4.30-5.90) m/uL Hgb (13.0-17.5) gm/dL Hct (39.0-53.0) % Plt Count (150-450) k/uL Sodium (137-145) mmol/L Potassium (3.5-5.1) mmol/L BUN (9-20) mg/dL Creatinine (0.66-1.25) mg/dL Glucose (74-99) mg/dL POC Glucose (mg/dL) 274 H 280 H 313 H (75-99) mg/dL Calcium (8.4-10.2) mg/dL Magnesium (1.6-2.3) mg/dL Alkaline Phosphatase (38-126) U/L Total Protein (6.3-8.2) g/dL Albumin (3.5-5.0) g/dL Lipase (23-300) U/L Urine Protein (Negative) Urine Blood (Negative) Ur Leukocyte Esterase (Negative) Urine RBC (0-5) /hpf Urine WBC (0-5) /hpf Urine WBC Clumps (None) /hpf Urine Mucus (None) /hpf 01/29/20 01/29/20 01/29/20 Range/Units 06:01 10:36 10:36 RBC 3.94 L (4.30-5.90) m/uL Hgb 11.8 L (13.0-17.5) gm/dL Hct 36.9 L (39.0-53.0) % Plt Count 133 L (150-450) k/uL Sodium 135 L (137-145) mmol/L Potassium (3.5-5.1) mmol/L BUN 29 H (9-20) mg/dL Creatinine 2.41 H (0.66-1.25) mg/dL Glucose 221 H (74-99) mg/dL POC Glucose (mg/dL) 226 H (75-99) mg/dL Calcium 8.1 L (8.4-10.2) mg/dL Magnesium (1.6-2.3) mg/dL Alkaline Phosphatase (38-126) U/L Total Protein (6.3-8.2) g/dL Albumin (3.5-5.0) g/dL Lipase (23-300) U/L Urine Protein (Negative) Urine Blood (Negative) Ur Leukocyte Esterase (Negative) Urine RBC (0-5) /hpf Urine WBC (0-5) /hpf Urine WBC Clumps (None) /hpf Urine Mucus (None) /hpf Microbiology - Last 24 Hours (Table) 01/28/20 18:01 Urine Culture - Preliminary Urine,Voided Thrombosis Risk Factor Assmnt - Choose All That Apply Each Risk Factor Represents 2 Points: Age 61-74 years Thrombosis Risk Factor Assessment Total Risk Factor Score: 2 Thrombosis Risk Factor Assessment Level: Low Risk Assessment and Plan Assessment: Recurrent nausea and vomiting in view of his gastroparesis mild dehydration Possible acute on chronic kidney disease Possible acute urinary tract infection Recent history of bilateral extensive COVID-19 pneumonia Left upper extremity swelling with previous history of AV fistula Gait dysfunction Multiple falls History of renal transplantation Coronary disease history History of CVA/TIA Dementia Diabetes type 2 Poor social support GERD History of GI bleed Hard of hearing Hypertension Hyperlipidemia History of PR Hypothyroidism Diabetic peripheral neuropathy Depression History of nicotine dependence Plan: This is a pleasant 64 years old male who presents with nausea and vomiting. Continue with gentle hydration. Continue with Zofran. Monitor Her vitals and kidney function. Follow-up with GI service. Follow-up urine culture. Continue with ceftriaxone Labs and medication were reviewed.. Continue same treatment. Continue with symptomatic treatment. Resume home medication. Monitor lytes and vitals. DVT and GI prophylaxis. Further recommendations depends on the clinical course of the patient DVT prophylaxis: Subcutaneous heparin GI Prophylaxis: Ppi Prognosis is guarded
--- NOTE | 2020-01-29 19:38 | XR ---
EXAMINATION: XR chest 2V DATE AND TIME: 01/29/2020 6:42 PM CLINICAL INDICATION: PHH; couging, with vomiting TECHNIQUE: Departmental protocol COMPARISON: 01/23/2020 FINDINGS: The chronic parenchymal changes with multifocal peripheral acute infiltrates are redemonstrated, with overall similar radiographic appearance when compared to the prior study. The pleural spaces are negative. The cardiac silhouette is not enlarged. The remainder of the mediastinal silhouette is unremarkable. The skeletal structures and soft tissues are negative for acute findings. IMPRESSION: Similar overall abnormalities; if anything, slightly advanced compared to the prior study.
[2020-01-29 20:30] LABS: Glucose,Whole Blood 179 mg/dL (75-99)
[2020-01-29] MEDS: SERTRALINE 100 MG TAB PO SCH (20:32)
[2020-01-29] MEDS: ATORVASTATIN 80 MG TAB PO SCH (20:32)
--- NOTE | 2020-01-29 21:49 | P.CONS ---
History of Present Illness - Reason for Consult Consult date: 01/29/20 Nausea and vomiting Requesting physician: Julio E Sheet - Chief Complaint Nausea and vomiting - History of Present Illness 64-year-old male with multiple medical comorbidities including diabetes mellitus, chronic kidney disease status post renal transplant in the past, di abetic related complications including retinopathy, neuropathy, nephropathy and gastroparesis with multiple hospitalizations for nausea and vomiting who presented to the hospital for evaluation of frequent episodes of nausea and vomiting. The patient had been having episodes of vomiting occurring a pproximately every hour prior to presentation. He denies any specific triggers, unusual foods or sick contacts. Testing was done prior to presentation of the patient's vomitus which tested positive for occult blood. However after presentation and he had a negative stool test for occult blood. The patient has previously had endoscopic evaluation with EGD in 08/2018 significant for gastritis and retained food in the stomach consistent with history of gastroparesis as well as EGD on 03/22/2021 concerns or coffee-ground emesis with findings of LA grade B esophagitis and severe gastritis. Patient's symptoms are currently improved and he is tolerating diet. Currently hemoglobin 11.4 from 11.8 on presentation with platelet count 133,000 and WBC 8, total bilirubin 0.7, pleasant phosphatase 1:30, AST 18 and ALT 13. Review of Systems REVIEW OF SYSTEMS: CONSTITUTIONAL: Denies any fevers, chills, weight change or fatigue. CARDIOVASCULAR: Denies any chest pain, palpitations high or low blood pressures RESPIRATORY: Denies any shortness of breath, hemoptysis or cough. GENITOURINARY: No dysuria or hematuria. MUSCULOSKELETAL: No weakness reported. SKIN: Denies any new rashes or lesions, jaundice or pallor. PSYCHIATRIC: Denies any depression or anxiety at present. NEUROLOGY: Denies headache, denies any new focal deficits, known history of diabetic neuropathy. EARS/NOSE/THROAT: No recent hearing change, congestion, nasal discharge or sore throat. EYES: No pain in eyes, discharge or change in vision. GASTROINTESTINAL: As per HPI. Past Medical History Past Medical History: Coronary Artery Disease (CAD), Cancer, Chest Pain / Angina, CVA/TIA, Dementia, Diabetes Mellitus, Dialysis, Eye Disorder, GERD/Reflux, GI Bleed, Hyperlipidemia, Hypertension, Myocardial Infarction (ID), Pneumonia, Renal Disease, Thyroid Disorder Additional Past Medical History / Comment(s): acute renal failure, covid 19, mild hyponatremia, asymptomatic bacturia. Other hx: IDDM type II, neuropathy bilateral legs/feet, retinopathy bilaterally and is nearly blind, gastroparesis, ESRD with past hemo/peritoneal dialysis and in 2010 received kidney transplant, CKD stageIV-pt states it has been recommended he has hemodialysis but he is not willing to do so, recurrent UTIs, UTI with sepsis, incomplete bladder emptying/self cathed on occasion in the past, incontinent of urine at times, TIAs, 2013 fall with multiple fractured ribs, vascular dementia, skin cancer with removal, upper GI bleed, hypomagnesemia Last Myocardial Infarction Date:: 01/2019 History of Any Multi-Drug Resistant Organisms: None Reported Year Discovered:: "years ago" MDRO Source:: stool Past Surgical History: Heart Catheterization, Heart Catheterization With Stent Additional Past Surgical History / Comment(s): 01/2019 cardiac cath tx medically, PCI with stents in 2012 and 2015, kidney transplant November 2010, patient has an AV fistula in the left upper extremity, colonoscopy, skin cancer removal , bilateral eye retinal bleeds with surgery, teeth extractions. Past Anesthesia/Blood Transfusion Reactions: No Reported Reaction Date of Last Stent Placement:: 09/2015 Past Psychological History: Depression Additional Psychological History / Comment(s): Pt resides with his spouse. He is legally blind. He uses a magnifier to read. Pt states spouse works during daytime. He uses a walker or cane to ambulate. He has a glucometer. Smoking Status: Never smoker Past Alcohol Use History: None Reported Additional Past Alcohol Use History / Comment(s): Pt quit smoking 03/20/19. He had been smoking since he was 13 years old. He does have history of alcoholism has been alcohol free for 9 years. Past Drug Use History: None Reported - Past Family History Brother(s) Additional Family Medical History / Comment(s): Brother had depression and comitted suicide. Father Family Medical History: Diabetes Mellitus Additional Family Medical History / Comment(s): Father lived into his 90s. Mother Family Medical History: Myocardial Infarction (ID) Additional Family Medical History / Comment(s): Mother of a ID at the age of 57yrs. Medications and Allergies Home Medications Medication Instructions Recorded Confirmed Type Levothyroxine Sodium [Synthroid] 50 mcg PO DAILY@0600 03/13/17 01/28/20 History Mycophenolate Sodium [Mycophenolic 720 mg PO BID@0800,1700 03/13/17 01/28/20 History Acid] Pantoprazole Sodium [Protonix] 40 mg PO BID@0800,1700 08/12/19 01/28/20 History Sertraline HCl [Zoloft] 100 mg PO HS@2100 08/12/19 01/28/20 History Tacrolimus [Prograf] 2 mg PO BID@0800,1700 10/31/19 01/28/20 History Insulin Detemir (Levemir) [Levemir] 10 unit SQ BID@0800,199912/31/19 01/28/20 History Metoclopramide [Reglan] 5 mg PO BID@0800,1700 01/23/20 01/28/20 History Atorvastatin [Lipitor] 80 mg PO HS@2100 01/28/20 01/28/20 History Clopidogrel [Plavix] 75 mg PO DAILY@0800 01/28/20 01/28/20 History INSULIN ASPART (NovoLOG) [NovoLOG See Protocol SQ ACHS 01/28/20 01/28/20 History (formulary)] Magnesium Hydroxide [Milk of 2,400 mg PO DAILY PRN 01/28/20 01/28/20 History Magnesia] Na Phos,M-B/Na Phos,Di-Ba [Fleet 133 ml RECTAL DAILY PRN 01/28/20 01/28/20 History Adult] Ondansetron [Zofran] 4 mg PO Q12HR 01/28/20 01/28/20 History bisacodyL [Dulcolax] 10 mg RECTAL DAILY PRN 01/28/20 01/28/20 History hydrALAZINE HCL [Apresoline] 25 mg PO TID@0800,1200,1700 01/28/20 01/28/20 Hi story ondansetron HCL [Zofran Oral Soln] 4 mg IM ONCE 01/28/20 01/28/20 History Allergies Allergy/AdvReac Type Severity Reaction Status Date / Time No Known Allergies Allergy Verified 01/28/20 17:57 Physical Exam Vitals: Vital Signs Temp Pulse Pulse Resp BP BP Pulse Ox 01/29/20 09:00 98.0 F 107 H 16 133/68 99 01/29/20 03:00 97.9 F 102 H 15 152/71 98 01/29/20 01:17 97.6 F 126 H 18 132/67 99 01/28/20 21:00 126 H 18 01/28/20 20:51 97.6 F 126 H 18 132/67 99 01/28/20 20:44 98.8 F 01/28/20 20:41 113 H 16 158/85 96 01/28/20 20:00 113 H 20 146/80 01/28/20 18:43 105 H 18 189/104 97 01/28/20 16:02 99.0 F 104 H 18 188/101 99 Intake and Output 01/29/20 01/29/20 01/29/20 06:59 14:59 22:59 Intake Total 450 Balance 450 Intake: Intake, IV Titration 450 Amount Sodium Chloride 0.9% 1, 400 000 ml @ 80 mls/hr IV . [id number] [facility] Rx#:[id number] cefTRIAXone 1 gm In 50 Sodium Chloride 0.9% 50 ml @ 100 mls/hr IVPB Q24HR [facility] Rx#:[id number] Other: Voiding Method Toilet Toilet # Voids 1 1 On physical examination, patient appears comfortable in no apparent distress. HEAD: Normocephalic, atraumatic. EYES: No scleral icterus. No conjunctival injection. MOUTH: No lesions, tongue midline. NECK: Trachea midline, no gross abnormalities. CHEST: Decreased air entry in all lung neri. HEART: S1-S2 appreciated. ABDOMEN: Soft, nontender to palpation. Bowel sounds are positive. No organomegaly. No guarding or rigidity. EXTREMITIES: No pedal edema. SKIN: No rashes, no jaundice. NEUROLOGIC: Alert and oriented to person and place. No focal deficits. Results CBC & Chem 7: 01/29/20 10:36 01/29/20 10:36 Labs: Abnormal Lab Results - Last 24 Hours (Table) 01/28/20 01/28/20 01/28/20 Range/Units 16:24 16:24 18:01 RBC 3.98 L (4.30-5.90) m/uL Hgb 11.4 L (13.0-17.5) gm/dL Hct 36.7 L (39.0-53.0) % Plt Count (150-450) k/uL Sodium 136 L (137-145) mmol/L Potassium 5.2 H (3.5-5.1) mmol/L BUN 22 H (9-20) mg/dL Creatinine 2.17 H (0.66-1.25) mg/dL Glucose 181 H (74-99) mg/dL POC Glucose (mg/dL) (75-99) mg/dL Calcium 8.2 L (8.4-10.2) mg/dL Magnesium 1.2 L (1.6-2.3) mg/dL Alkaline Phosphatase 130 H (38-126) U/L Total Protein 5.1 L (6.3-8.2) g/dL Albumin 2.9 L (3.5-5.0) g/dL Lipase 13 L (23-300) U/L Urine Protein 1+ H (Negative) Urine Blood Small H (Negative) Ur Leukocyte Esterase Large H (Negative) Urine RBC 7 H (0-5) /hpf Urine WBC 146 H (0-5) /hpf Urine WBC Clumps Occasional H (None) /hpf Urine Mucus Rare H (None) /hpf 01/28/20 01/28/20 01/29/20 Range/Units 22:47 22:48 00:17 RBC (4.30-5.90) m/uL Hgb (13.0-17.5) gm/dL Hct (39.0-53.0) % Plt Count (150-450) k/uL Sodium (137-145) mmol/L Potassium (3.5-5.1) mmol/L BUN (9-20) mg/dL Creatinine (0.66-1.25) mg/dL Glucose (74-99) mg/dL POC Glucose (mg/dL) 274 H 280 H 313 H (75-99) mg/dL Calcium (8.4-10.2) mg/dL Magnesium (1.6-2.3) mg/dL Alkaline Phosphatase (38-126) U/L Total Protein (6.3-8.2) g/dL Albumin (3.5-5.0) g/dL Lipase (23-300) U/L Urine Protein (Negative) Urine Blood (Negative) Ur Leukocyte Esterase (Negative) Urine RBC (0-5) /hpf Urine WBC (0-5) /hpf Urine WBC Clumps (None) /hpf Urine Mucus (None) /hpf 01/29/20 01/29/20 01/29/20 Range/Units 06:01 10:36 10:36 RBC 3.94 L (4.30-5.90) m/uL Hgb 11.8 L (13.0-17.5) gm/dL Hct 36.9 L (39.0-53.0) % Plt Count 133 L (150-450) k/uL Sodium 135 L (137-145) mmol/L Potassium (3.5-5.1) mmol/L BUN 29 H (9-20) mg/dL Creatinine 2.41 H (0.66-1.25) mg/dL Glucose 221 H (74-99) mg/dL POC Glucose (mg/dL) 226 H (75-99) mg/dL Calcium 8.1 L (8.4-10.2) mg/dL Magnesium (1.6-2.3) mg/dL Alkaline Phosphatase (38-126) U/L Total Protein (6.3-8.2) g/dL Albumin (3.5-5.0) g/dL Lipase (23-300) U/L Urine Protein (Negative) Urine Blood (Negative) Ur Leukocyte Esterase (Negative) Urine RBC (0-5) /hpf Urine WBC (0-5) /hpf Urine WBC Clumps (None) /hpf Urine Mucus (None) /hpf Microbiology - Last 24 Hours (Table) 01/28/20 18:01 Urine Culture - Preliminary Urine,Voided Chest x-ray: report reviewed (No acute changes on chest x-ray) Assessment and Plan (1) Nausea and vomiting Narrative/Plan: 64-year-old male with multiple medical comorbidities including uncontrolled diabetes mellitus with associated diabetic gastroparesis who presented to the hospital due to nausea and vomiting. Patient is on treatment with Protonix with prior EGD in 03/2019 showing esophagitis and gastritis, as well as Reglan and Zofran in the outpatient setting. He reports multiple episodes of nausea and vomiting prior to presentation and denies any triggers. Currently symptoms are improved. Current Visit: Yes Status: Acute Code(s): R11.2 - NAUSEA WITH VOMITING, UNSPECIFIED SNOMED Code(s): 72629099 (2) Gastroparesis due to DM Current Visit: No Status: Acute Code(s): E11.43 - TYPE 2 DIABETES W DIABETIC AUTONOMIC (POLY)NEUROPATHY; K31.84 - GASTROPARESIS SNOMED Code(s): 260414621 Plan: Supportive care Okay to advance diet to consistent carbohydrate, low fiber low residual low fat as tolerated Extensive discussion with the patient during his numerous hospitalizations about the need for small portions and the avoidance of fatty and fiber screws in the setting of diabetic gastroparesis Take glycemic control Continue Protonix therapy Continue Zofran therapy Okay to add Reglan if patient is able to tolerate pills Thank you for allowing us to participate in the care of the patient
[2020-01-29 22:59] LABS: Glucose,Whole Blood 184 mg/dL (75-99)
[2020-01-30] MEDS: SODIUM CHLORIDE 0.9% 1,000 ML IV SCH (00:21)
[2020-01-30 06:17] LABS: Glucose,Whole Blood 41 mg/dL (75-99)
[2020-01-30 06:17] LABS: Glucose,Whole Blood 39 mg/dL (75-99)
[2020-01-30 06:38] LABS: Glucose,Whole Blood 43 mg/dL (75-99)
[2020-01-30] MEDS: LEVOTHYROXINE 50 MCG TAB PO SCH (06:45)
[2020-01-30 06:48] LABS: Glucose,Whole Blood 59 mg/dL (75-99)
[2020-01-30 06:56] LABS: Glucose,Whole Blood 68 mg/dL (75-99)
[2020-01-30] MEDS: INSULIN DETEMIR (LEVEMIR) 100 UNIT/ML SYR SQ SCH (06:56)
[2020-01-30 07:01] LABS: Glucose,Whole Blood 80 mg/dL (75-99)
[2020-01-30 08:15] LABS: Calcium 7.9 mg/dL (8.4-10.2); Magnesium 1.3 mg/dL (1.6-2.3); Potassium 4.7 mmol/L (3.5-5.1)
[2020-01-30] MEDS: INSULIN ASPART (NovoLOG) 100 UNIT/ML VIAL SQ SCH ×2 (08:22→17:05)
[2020-01-30] MEDS: PANTOPRAZOLE 40 MG/10 ML VIAL IV SCH (08:27)
[2020-01-30] MEDS: TACROLIMUS 1 MG CAP PO SCH (08:27)
[2020-01-30] MEDS: MYCOPHENOLATE SODIUM DR 180 MG TABLET.DR PO SCH (08:27)
[2020-01-30] MEDS: hydrALAZINE HCL 25 MG TAB PO SCH ×2 (08:27→12:56)
[2020-01-30] MEDS: HEPARIN SODIUM,PORCINE 5,000 UNIT/ML 1 ML VIAL SQ SCH (08:27)
--- NOTE | 2020-01-30 08:55 | P.DS ---
Providers Date of admission: 01/28/20 18:27 Attending physician: Jeny Garcia Consults: 01/28/20 18:28 Consult Physician Routine Consulting Provider: Kraig Corley Consult Reason/Comments: Gi bleed Do you want consulting provider notified?: Yes Primary care physician: [facility] Course: Diagnoses: Recurrent nausea and vomiting in view of his gastroparesis , resolved mild dehydration, resolved Hypomagnesemia, replaced chronic kidney disease Asymptomatic bacteriuria, no UTI Recent history of bilateral extensive COVID-19 pneumonia Left upper extremity swelling with previous history of AV fistula Gait dysfunction Multiple falls History of renal transplantation Coronary disease history History of CVA/TIA Dementia Diabetes type 2 Poor social support GERD History of GI bleed Hard of hearing Hypertension Hyperlipidemia History of [place] Hypothyroidism Diabetic peripheral neuropathy Depression History of nicotine dependence Hospital course: This is a pleasant 64 years old male with multiple medical problems as below. Presents because of nausea vomiting, patient states that his nausea vomiting is very frequent without specific lesion both almost like every 1 hour however he denies abdominal pain, no chest pain or dyspnea. No diarrhea. Also patient denies any urinary symptoms like no dysuria or increased frequency. No dizziness. Patient denies smoking, alcohol or illicit drugs. Has occasional coughing. Vitas looks stable, is tachycardic of 107. Labs show an unremarkable CBC, creatinine is elevated at 2.4, which is close to his baseline EKG shows sinus tachycardia at [address]-T changes. In the emergency room he was started on normal saline at 80 mL per hour. Occult blood in his stool is negative. Patient found to have recurrent nausea vomiting and dehydration secondary to gastroparesis. Patient was treated symptomatically and he shows significant improvement. On the day of discharge he has no nausea vomiting for more than 24 hours, he is tolerating diet. No abdominal pain or tenderness. He has regular bowel movements. Low magnesium is been replaced Problems and management plan were discussed with the patient and he verbalized understanding and acceptance Patient was found stable and can be discharged home however he needs follow-up as an outpatient. Patient was instructed to follow up with PCP at the [facility] within one week and patient agrees. 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 Montero in 2-3 weeks Gen: patient is a AAOx3, no distress CVS: S1-S2, RRR, no murmur Lungs: B/L CTA, no wheezing Abdomen: soft, no distention, no tenderness, positive bowel sounds Extremity: no leg edema or induration Time spent more than 35 minutes Patient Condition at Discharge: Fair Plan - Discharge Summary Discharge Rx Participant: No New Discharge Prescriptions: New Magnesium Oxide [Mag-Ox] 400 mg PO DAILY 3 Days #3 tablet Continue Mycophenolate Sodium [Mycophenolic Acid] 720 mg PO BID@0800,1700 Levothyroxine Sodium [Synthroid] 50 mcg PO DAILY@0600 Pantoprazole Sodium [Protonix] 40 mg PO BID@0800,1700 Sertraline HCl [Zoloft] 100 mg PO HS@2100 Tacrolimus [Prograf] 2 mg PO BID@0800,1700 Insulin Detemir (Levemir) [Levemir] 10 unit SQ BID@0800,2000 Metoclopramide [Reglan] 5 mg PO BID@0800,1700 Na Phos,M-B/Na Phos,Di-Ba [Fleet Adult] 133 ml RECTAL DAILY PRN PRN Reason: Constipation Magnesium Hydroxide [Milk of Magnesia] 2,400 mg PO DAILY PRN PRN Reason: Constipation bisacodyL [Dulcolax] 10 mg RECTAL DAILY PRN PRN Reason: Constipation Ondansetron [Zofran] 4 mg PO Q12HR ondansetron HCL [Zofran Oral Soln] 4 mg IM ONCE hydrALAZINE HCL [Apresoline] 25 mg PO TID@0800,1200,1700 Clopidogrel [Plavix] 75 mg PO DAILY@0800 Atorvastatin [Lipitor] 80 mg PO HS@2100 INSULIN ASPART (NovoLOG) [NovoLOG (formulary)] See Protocol SQ ACHS Discharge Medication List Levothyroxine Sodium [Synthroid] 50 mcg PO DAILY@0600 03/13/17 [History] Mycophenolate Sodium [Mycophenolic Acid] 720 mg PO BID@0800,1700 03/13/17 [History] Pantoprazole Sodium [Protonix] 40 mg PO BID@0800,1700 08/12/19 [History] Sertraline HCl [Zoloft] 100 mg PO HS@2100 08/12/19 [History] Tacrolimus [Prograf] 2 mg PO BID@0800,1700 10/31/19 [History] Insulin Detemir (Levemir) [Levemir] 10 unit SQ BID@0800,2000 12/31/19 [History] Metoclopramide [Reglan] 5 mg PO BID@0800,1700 01/23/20 [History] Atorvastatin [Lipitor] 80 mg PO HS@2100 01/28/20 [History] Clopidogrel [Plavix] 75 mg PO DAILY@0800 01/28/20 [History] INSULIN ASPART (NovoLOG) [NovoLOG (formulary)] See Protocol SQ ACHS 01/28/20 [History] Magnesium Hydroxide [Milk of Magnesia] 2,400 mg PO DAILY PRN 01/28/20 [History] Na Phos,M-B/Na Phos,Di-Ba [Fleet Adult] 133 ml RECTAL DAILY PRN 01/28/20 [History] Ondansetron [Zofran] 4 mg PO Q12HR 01/28/20 [History] bisacodyL [Dulcolax] 10 mg RECTAL DAILY PRN 01/28/20 [History] hydrALAZINE HCL [Apresoline] 25 mg PO TID@0800,1200,1700 01/28/20 [History] ondansetron HCL [Zofran Oral Soln] 4 mg IM ONCE 01/28/20 [History] Magnesium Oxide [Mag-Ox] 400 mg PO DAILY 3 Days #3 tablet 01/30/20 [Rx] Follow up Appointment(s)/Referral(s): Mahsa Montero MD [STAFF PHYSICIAN] - 1 Week Luis Felipe Calderon DO [Primary Care Provider] - 1-2 days [facility] [REFERRING] - 1 Week Activity/Diet/Wound Care/Special Instructions: heart healthy and renal diet activity is restricted till you see your doctor Discharge Disposition: HOME SELF-CARE
[2020-01-30] MEDS ORDERED: MAGNESIUM SULFATE-D5W PMX 1 GM in DEXTROSE/WATER 1 100ML.BAG IVPB ONE (10:00)
[2020-01-30 10:54] VITALS: RESP 18
[2020-01-30 11:51] LABS: Glucose,Whole Blood 244 mg/dL (75-99)
[2020-01-30 16:54] LABS: Glucose,Whole Blood 315 mg/dL (75-99)
[2020-01-30 17:03] VITALS: BP 125/74; PULSE 96; TEMP 98
--- NOTE | 2020-02-04 17:08 | CDI ---
Dr. Rodriguez, Patient has a history of Covid and pneumonia in last month. Patient presents on this admission with a positive Covid test, nausea and vomiting related to diabetic gastroparesis and dehydration. Please document in an addendum any Covid related diagnosis on this visit. Thank you for your time and consideration, Ibis BARRAGAN
--- NOTE | 2020-02-04 17:12 | CDI ---
Dr. Garcia, Patient has a history of Covid and pneumonia in last month. Patient presents on this admission with a positive Covid test, nausea and vomiting related to diabetic gastroparesis and dehydration. Please document in an addendum any Covid related diagnosis on this visit. Thank you for your time and consideration, Ibis Wright Patient was not seen by me MTDD
--- NOTE | 2020-02-06 06:31 | CDI ---
Dr. Rodriguez, Patient has a history of Covid and pneumonia in last month. Patient presents on this admission with a positive Covid test, nausea and vomiting related to diabetic gastroparesis and dehydration. Please document in an addendum any Covid related diagnosis on this visit. Thank you for your time and consideration, Ibis Wright pt symptoms of nausea and vomiting mostly related to his gastroparesis , also recent covid infection could also contributed to his worsening symptoms , then it multifactorial , however pt n/v resolved prior to discharge MTDD
== END 2020-01-30 17:33 | disposition home or self-care (01) ==
LOC: EC 15:59 → 1SOBS 18:27
PROVIDERS: ADMIT Internal Medicine; ATTEND Internal Medicine
DX: E11.43 Type 2 diabetes mellitus with diabetic autonomic (poly)neuropathy (principal); E86.0 Dehydration; K31.84 Gastroparesis; E11.65 Type 2 diabetes mellitus with hyperglycemia; U07.1 COVID-19; E11.42 Type 2 diabetes mellitus with diabetic polyneuropathy; E11.22 Type 2 diabetes mellitus with diabetic chronic kidney disease; E11.319 Type 2 diabetes mellitus with unspecified diabetic retinopathy without macular edema; E83.42 Hypomagnesemia; I12.9 Hypertensive chronic kidney disease with stage 1 through stage 4 chronic kidney disease, or unspecified chronic kidney disease; N18.9 Chronic kidney disease, unspecified; R82.71 Bacteriuria; M79.89 Other specified soft tissue disorders; R26.9 Unspecified abnormalities of gait and mobility; R29.6 Repeated falls; Z94.0 Kidney transplant status; I25.10 Atherosclerotic heart disease of native coronary artery without angina pectoris; F03.90 Unspecified dementia, unspecified severity, without behavioral disturbance, psychotic disturbance, mood disturbance, and anxiety; Z63.8 Other specified problems related to primary support group; K21.9 Gastro-esophageal reflux disease without esophagitis; H91.90 Unspecified hearing loss, unspecified ear; E78.5 Hyperlipidemia, unspecified; I25.2 Old myocardial infarction; E03.9 Hypothyroidism, unspecified; F32.9 Major depressive disorder, single episode, unspecified; R05 Cough; R00.0 Tachycardia, unspecified; K59.00 Constipation, unspecified; R79.89 Other specified abnormal findings of blood chemistry; R32 Unspecified urinary incontinence; H54.8 Legal blindness, as defined in USA; F10.21 Alcohol dependence, in remission; Z87.891 Personal history of nicotine dependence; Z87.440 Personal history of urinary (tract) infections; Z86.19 Personal history of other infectious and parasitic diseases; Z87.01 Personal history of pneumonia (recurrent); Z86.73 Personal history of transient ischemic attack (TIA), and cerebral infarction without residual deficits; Z85.828 Personal history of other malignant neoplasm of skin; Z87.19 Personal history of other diseases of the digestive system; Z95.5 Presence of coronary angioplasty implant and graft; Z79.890 Hormone replacement therapy; Z79.899 Other long term (current) drug therapy; Z79.4 Long term (current) use of insulin; Z79.02 Long term (current) use of antithrombotics/antiplatelets; Z81.8 Family history of other mental and behavioral disorders; Z83.3 Family history of diabetes mellitus; Z82.49 Family history of ischemic heart disease and other diseases of the circulatory system
CPT/HCPCS: 96361 ×3; 96365; 96367; 96372 ×2; 96376; 96375; 99285; 36415; 93005; 86900; 86901; 80053; 80048 ×2; 83605; 83690; 83735 ×2; 85025 ×2; 86850; 82272; 81001; 87086; 87635; 71046; G0378 ×3; J0360; J1644 ×2; J2405; J7507 ×2; J0696; J3475; J7518 ×2; C9113 ×2

== ENCOUNTER 2020-03-24 06:34 | Inpatient (IN) | payer MEDICARE ==
[2020-03-24] MEDS ORDERED: SODIUM CHLORIDE 0.9% 1,000 ML IV STA ×3 (06:45→07:44)
[2020-03-24] MEDS ORDERED: ACETAMINOPHEN TAB 500 MG TAB PO STA (06:45)
[2020-03-24] MEDS ORDERED: IBUPROFEN 600 MG TAB PO STA (06:45)
--- NOTE | 2020-03-24 06:48 | ED ---
Recheck HPI - General Stated Complaint: Altered mental status Time Seen by Provider: 03/24/20 06:43 Source: RN notes reviewed, old records reviewed Mode of arrival: EMS Limitations: altered mental status - History of Present Illness Initial Comments: This is a 65-year-old female who a 7 and transfer. Patient Dese for altered mental status, patient was transfer for hypertensive emergency and encephalopathy with history of renal transplant renal disease and encephalopathy for also cardiac consult as his doctors to come from this hospital. Patient himself is shaking friend found to be febrile here in the emergency department. Patient was afebrile at prior facility. Patient complaining of feeling cold MD Complaint: abnormal lab (Patient had abnormal lab tests, renal failure and elevated blood pressure) -: unknown Returns Today for: Called Because of Abnormal Lab/Test, persistent/worsening jaquelin n related to initial visit Symptoms Since Prior Visit: worsening pain, fever Context: called for abnormal lab result Associated Symptoms: fever, chills Treatments Prior to Arrival: other (Patient was given blood pressure control) - Related Data Home Medications Medication Instructions Recorded Confirmed Levothyroxine Sodium [Synthroid] 50 mcg PO DAILY@0600 03/13/17 03/24/20 Mycophenolate Sodium [Mycophenolic 720 mg PO BID@0800,1700 03/13/17 03/24/20 Acid] Pantoprazole Sodium [Protonix] 40 mg PO BID@0800,1700 08/12/19 03/24/20 Sertraline HCl [Zoloft] 100 mg PO HS@2100 08/12/19 03/24/20 Tacrolimus [Prograf] 2 mg PO BID@0800,1700 10/31/19 03/24/20 Insulin Detemir (Levemir) [Levemir] 10 unit SQ DAILY 12/31/19 03/24/20 Metoclopramide [Reglan] 5 mg PO BID@0800,1700 01/23/20 03/24/20 Atorvastatin [Lipitor] 80 mg PO HS@2100 01/28/20 03/24/20 Clopidogrel [Plavix] 75 mg PO DAILY@0800 01/28/20 03/24/20 INSULIN ASPART (NovoLOG) [NovoLOG See Protocol SQ ACHS 01/28/20 03/24/20 (formulary)] hydrALAZINE HCL [Apresoline] 25 mg PO TID@0800,1200,1700 01/28/20 03/24/20 Cholecalciferol [Vitamin D3 (25 25 mcg PO DAILY 03/24/20 03/24/20 Mcg = 1000 Iu)] Insulin Detemir (Levemir) [Levemir] 6 unit SQ HS 03/24/20 03/24/20 Metoprolol Tartrate [Lopressor] 25 mg PO BID 03/24/20 03/24/20 Ondansetron Odt [Zofran Odt] 4 mg PO Q12HR 03/24/20 03/24/20 Allergies Allergy/AdvReac Type Severity Reaction Status Date / Time No Known Allergies Allergy Verified 03/24/20 10:44 Review of Systems ROS Statement: Those systems with pertinent positive or pertinent negative responses have been documented in the HPI. ROS Other: All systems not noted in ROS Statement are negative. Past Medical History Past Medical History: Coronary Artery Disease (CAD), Cancer, Chest Pain / Angina, CVA/TIA, Dementia, Diabetes Mellitus, Dialysis, Eye Disorder, GERD/Reflux, GI Bleed, Hyperlipidemia, Hypertension, Myocardial Infarction (PR), Pneumonia, Renal Disease, Thyroid Disorder Additional Past Medical History / Comment(s): acute renal failure, covid 19, mild hyponatremia, asymptomatic bacturia. Other hx: IDDM type II, neuropathy bilateral legs/feet, retinopathy bilaterally and is nearly blind, gastroparesis, ESRD with past hemo/peritoneal dialysis and in 2010 received kidney transplant, CKD stageIV-pt states it has been recommended he has hemodialysis but he is not willing to do so, recurrent UTIs, UTI with sepsis, incomplete bladder emptying/self cathed on occasion in the past, incontinent of urine at times, TIAs, 2014 fall with multiple fractured ribs, vascular dementia, skin cancer with removal, upper GI bleed, hypomagnesemia Last Myocardial Infarction Date:: 01/2019 History of Any Multi-Drug Resistant Organisms: None Reported Date of last positivie culture/infection: "years ago" MDRO Source:: stool Past Surgical History: Heart Catheterization, Heart Catheterization With Stent Additional Past Surgical History / Comment(s): 01/2019 cardiac cath tx medically, PCI with stents in 2012 and 2015, kidney transplant November 2010, patient has an AV fistula in the left upper extremity, colonoscopy, skin cancer removal , bilateral eye retinal bleeds with surgery, teeth extractions. Past Anesthesia/Blood Transfusion Reactions: No Reported Reaction Date of Last Stent Placement:: 09/2015 Past Psychological History: Depression Additional Psychological History / Comment(s): Pt resides with his spouse. He is legally blind. He uses a magnifier to read. Pt states spouse works during daytime. He uses a walker or cane to ambulate. He has a glucometer. Smoking Status: Never smoker Past Alcohol Use History: None Reported Additional Past Alcohol Use History / Comment(s): Pt quit smoking 03/20/19. He had been smoking since he was 13 years old. He does have history of alcoholism has been alcohol free for 9 years. Past Drug Use History: None Reported - Past Family History Brother(s) Additional Family Medical History / Comment(s): Brother had depression and comitted suicide. Father Family Medical History: Diabetes Mellitus Additional Family Medical History / Comment(s): Father lived into his 90s. Mother Family Medical History: Myocardial Infarction (PR) Additional Family Medical History / Comment(s): Mother of a PR at the age of 57yrs. General Exam General appearance: alert, in no apparent distress Head exam: Present: atraumatic, normocephalic, normal inspection Eye exam: Present: normal appearance, PERRL, EOMI. Absent: scleral icterus, conjunctival injection, periorbital swelling ENT exam: Present: normal exam, mucous membranes moist Neck exam: Present: normal inspection. Absent: tenderness, meningismus, lymphadenopathy Respiratory exam: Present: normal lung sounds bilaterally. Absent: respiratory distress, wheezes, rales, rhonchi, stridor Cardiovascular Exam: Present: regular rate, normal rhythm, normal heart sounds. Absent: systolic murmur, diastolic murmur, rubs, gallop, clicks GI/Abdominal exam: Present: soft, normal bowel sounds. Absent: distended, tenderness, guarding, rebound, rigid Extremities exam: Present: normal inspection, full ROM, normal capillary refill. Absent: tenderness, pedal edema, joint swelling, calf tenderness Back exam: Present: normal inspection Neurological exam: Present: alert, oriented X3, CN II-XII intact Psychiatric exam: Present: normal affect, normal mood Skin exam: Present: warm, dry, intact, normal color. Absent: rash Course Vital Signs 03/24/20 03/24/20 03/24/20 06:43 07:47 08:07 Temperature 100.6 F H 99.8 F H Pulse Rate 115 H 112 H 112 H Respiratory 24 16 16 Rate Blood Pressure 245/124 203/105 194/98 O2 Sat by Pulse 99 99 100 Oximetry 03/24/20 03/24/20 03/24/20 08:09 08:13 08:19 Temperature 99.6 F Pulse Rate 112 H 110 H 115 H Respiratory 18 16 16 Rate Blood Pressure 193/106 188/101 146/85 O2 Sat by Pulse 98 99 98 Oximetry 03/24/20 03/24/20 03/24/20 08:31 08:59 09:44 Temperature 99.4 F 99.5 F Pulse Rate 114 H 113 H 108 H Respiratory 16 18 18 Rate Blood Pressure 154/75 162/84 167/86 O2 Sat by Pulse 98 94 L 98 Oximetry 03/24/20 03/24/20 10:54 11:14 Temperature 98.7 F Pulse Rate 109 H Respiratory 15 16 Rate Blood Pressure 152/77 O2 Sat by Pulse 96 Oximetry - Reevaluation(s) Reevaluation #1: 03/24/20 06:48 medical record is reviewed 03/24/20 06:48 Transferring paperwork is been reviewed Patient symptoms are improving here in the ER, he is alert and oriented no significant complaints aside from chills and shaking and fever Patient symptoms are improved here in the emergency department Medical Decision Making - Medical Decision Making 65 male DF for evaluation of weakness fever hypertensive emergency altered mental status positive urinary tract infection, patient placed on antibiotics type blood pressure control and admission for further evaluation management - Lab Data Result diagrams: 03/24/20 07:00 03/24/20 07:00 Lab Results 03/24/20 03/24/20 03/24/20 Range/Units 07:00 07:00 07:00 WBC 11.9 H (3.8-10.6) k/uL RBC 4.27 L (4.30-5.90) m/uL Hgb 12.6 L (13.0-17.5) gm/dL Hct 39.7 (39.0-53.0) % MCV 92.9 (80.0-100.0) fL MCH 29.5 (25.0-35.0) pg MCHC 31.8 (31.0-37.0) g/dL RDW 15.1 (11.5-15.5) % Plt Count 175 (150-450) k/uL MPV 8.5 Neutrophils % 83 % Lymphocytes % 8 % Monocytes % 7 % Eosinophils % 1 % Basophils % 0 % Neutrophils # 9.9 H (1.3-7.7) k/uL Lymphocytes # 0.9 L (1.0-4.8) k/uL Monocytes # 0.8 (0-1.0) k/uL Eosinophils # 0.1 (0-0.7) k/uL Basophils # 0.0 (0-0.2) k/uL Hypochromasia Slight PT 10.6 (9.0-12.0) sec INR 1.0 (<1.2) APTT 23.3 (22.0-30.0) sec Sodium 138 (137-145) mmol/L Potassium 4.2 (3.5-5.1) mmol/L Chloride 101 (98-107) mmol/L Carbon Dioxide 22 (22-30) mmol/L Anion Gap 15 mmol/L BUN 37 H (9-20) mg/dL Creatinine 2.41 H (0.66-1.25) mg/dL Est GFR (CKD-EPI)AfAm 32 (>60 ml/min/1.73 sqM) Est GFR (CKD-EPI)NonAf 27 (>60 ml/min/1.73 sqM) Glucose 214 H (74-99) mg/dL Lactic Ac Sepsis Rflx Plasma Lactic Acid Raymond (0.7-2.0) mmol/L Calcium 9.0 (8.4-10.2) mg/dL Phosphorus 3.4 (2.5-4.5) mg/dL Magnesium 1.7 (1.6-2.3) mg/dL Total Bilirubin 0.7 (0.2-1.3) mg/dL AST 21 (17-59) U/L ALT 15 (4-49) U/L Alkaline Phosphatase 118 (38-126) U/L Ammonia (<30) umol/L Lactate Dehydrogenase 764 H (313-618) U/L Creatine Kinase 120 (55-170) U/L Troponin I (0.000-0.034) ng/mL C-Reactive Protein <5.0 (<10.0) mg/L NT-Pro-B Natriuret Pep pg/mL Total Protein 6.2 L (6.3-8.2) g/dL Albumin 3.9 (3.5-5.0) g/dL TSH 9.110 H (0.465-4.680) mIU/L Free T3 pg/mL (2.8-5.3) pg/ml Coronavirus (PCR) (Not Detectd) 03/24/20 03/24/20 03/24/20 Range/Units 07:00 07:00 07:00 WBC (3.8-10.6) k/uL RBC (4.30-5.90) m/uL Hgb (13.0-17.5) gm/dL Hct (39.0-53.0) % MCV (80.0-100.0) fL MCH (25.0-35.0) pg MCHC (31.0-37.0) g/dL RDW (11.5-15.5) % Plt Count (150-450) k/uL MPV Neutrophils % % Lymphocytes % % Monocytes % % Eosinophils % % Basophils % % Neutrophils # (1.3-7.7) k/uL Lymphocytes # (1.0-4.8) k/uL Monocytes # (0-1.0) k/uL Eosinophils # (0-0.7) k/uL Basophils # (0-0.2) k/uL Hypochromasia PT (9.0-12.0) sec INR (<1.2) APTT (22.0-30.0) sec Sodium (137-145) mmol/L Potassium (3.5-5.1) mmol/L Chloride (98-107) mmol/L Carbon Dioxide (22-30) mmol/L Anion Gap mmol/L BUN (9-20) mg/dL Creatinine (0.66-1.25) mg/dL Est GFR (CKD-EPI)AfAm (>60 ml/min/1.73 sqM) Est GFR (CKD-EPI)NonAf (>60 ml/min/1.73 sqM) Glucose (74-99) mg/dL Lactic Ac Sepsis Rflx Plasma Lactic Acid Raymond 2.6 H* (0.7-2.0) mmol/L Calcium (8.4-10.2) mg/dL Phosphorus (2.5-4.5) mg/dL Magnesium (1.6-2.3) mg/dL Total Bilirubin (0.2-1.3) mg/dL AST (17-59) U/L ALT (4-49) U/L Alkaline Phosphatase (38-126) U/L Ammonia <9 (<30) umol/L Lactate Dehydrogenase (313-618) U/L Creatine Kinase (55-170) U/L Troponin I 0.039 H* (0.000-0.034) ng/mL C-Reactive Protein (<10.0) mg/L NT-Pro-B Natriuret Pep 4810 pg/mL Total Protein (6.3-8.2) g/dL Albumin (3.5-5.0) g/dL TSH (0.465-4.680) mIU/L Free T3 pg/mL (2.8-5.3) pg/ml Coronavirus (PCR) (Not Detectd) 03/24/20 03/24/20 03/24/20 Range/Units 07:00 07:00 07:39 WBC (3.8-10.6) k/uL RBC (4.30-5.90) m/uL Hgb (13.0-17.5) gm/dL Hct (39.0-53.0) % MCV (80.0-100.0) fL MCH (25.0-35.0) pg MCHC (31.0-37.0) g/dL RDW (11.5-15.5) % Plt Count (150-450) k/uL MPV Neutrophils % % Lymphocytes % % Monocytes % % Eosinophils % % Basophils % % Neutrophils # (1.3-7.7) k/uL Lymphocytes # (1.0-4.8) k/uL Monocytes # (0-1.0) k/uL Eosinophils # (0-0.7) k/uL Basophils # (0-0.2) k/uL Hypochromasia PT (9.0-12.0) sec INR (<1.2) APTT (22.0-30.0) sec Sodium (137-145) mmol/L Potassium (3.5-5.1) mmol/L Chloride (98-107) mmol/L Carbon Dioxide (22-30) mmol/L Anion Gap mmol/L BUN (9-20) mg/dL Creatinine (0.66-1.25) mg/dL Est GFR (CKD-EPI)AfAm (>60 ml/min/1.73 sqM) Est GFR (CKD-EPI)NonAf (>60 ml/min/1.73 sqM) Glucose (74-99) mg/dL Lactic Ac Sepsis Rflx Y Plasma Lactic Acid Raymond (0.7-2.0) mmol/L Calcium (8.4-10.2) mg/dL Phosphorus (2.5-4.5) mg/dL Magnesium (1.6-2.3) mg/dL Total Bilirubin (0.2-1.3) mg/dL AST (17-59) U/L ALT (4-49) U/L Alkaline Phosphatase (38-126) U/L Ammonia (<30) umol/L Lactate Dehydrogenase (313-618) U/L Creatine Kinase (55-170) U/L Troponin I (0.000-0.034) ng/mL C-Reactive Protein (<10.0) mg/L NT-Pro-B Natriuret Pep pg/mL Total Protein (6.3-8.2) g/dL Albumin (3.5-5.0) g/dL TSH (0.465-4.680) mIU/L Free T3 pg/mL 4.1 (2.8-5.3) pg/ml Coronavirus (PCR) Not Detected (Not Detectd) - EKG Data -: EKG Interpreted by Me (EKG shows sinus 113 IN 144 QRS 02 QTC 481) - Radiology Data Radiology results: report reviewed (Chest x-rays negative for acute disease), image reviewed Critical Care Time Critical Care Time: Yes Total Critical Care Time: 31 Disposition Clinical Impression: Altered mental status, Fever, Urinary tract infection, Delirium due to general medical condition, Hypertensive emergency Disposition: ADMITTED IP TO THIS HOSP Condition: Fair Is patient prescribed a controlled substance at d/c from ED?: No
[2020-03-24] MEDS ORDERED: CLEVIDIPINE BUTYRATE 25 MG in EMPTY BAG 1 BAG IV SCH (07:15)
[2020-03-24 07:17] LABS: Basophils % (A) 0 %; Eosinophils # (A) 0.1 k/uL (0-0.7); Eosinophils % (A) 1 %; HCT 39.7 % (39.0-53.0); HGB 12.6 gm/dL (13.0-17.5); Hypochromasia Slight; Lymphocytes # (A) 0.9 k/uL (1.0-4.8); Lymphocytes % (A) 8 %; MCH 29.5 pg (25.0-35.0); MCHC 31.8 g/dL (31.0-37.0); MCV 92.9 fL (80.0-100.0); Mean Platelet Volume 8.5; Monocytes # (A) 0.8 k/uL (0-1.0); Monocytes % (A) 7 %; Neutrophils # (A) 9.9 k/uL (1.3-7.7); Neutrophils % (A) 83 %; Platelet Count 175 k/uL (150-450); RBC 4.27 m/uL (4.30-5.90); RDW 15.1 % (11.5-15.5); WBC 11.9 k/uL (3.8-10.6)
[2020-03-24 07:25] LABS: Partial Thromboplastin Time 23.3 sec (22.0-30.0); Prothrombin Time 10.6 sec (9.0-12.0)
[2020-03-24 07:26] LABS: ALT 15 U/L (4-49); AST 21 U/L (17-59); African American GFR (CKD) 32 (>60 ml/min/1.73 sqM); Albumin 3.9 g/dL (3.5-5.0); Alkaline Phosphatase 118 U/L (38-126); Anion Gap 15 mmol/L; Blood Urea Nitrogen 37 mg/dL (9-20); Carbon Dioxide 22 mmol/L (22-30); Chloride 101 mmol/L (98-107); Creatine Kinase 120 U/L (55-170); Glucose 214 mg/dL (74-99); LDH 764 U/L (313-618); Magnesium 1.7 mg/dL (1.6-2.3); Non-African American GFR(CKD) 27 (>60 ml/min/1.73 sqM); Phosphorus 3.4 mg/dL (2.5-4.5); Potassium 4.2 mmol/L (3.5-5.1); Sodium 138 mmol/L (137-145); Total Bilirubin 0.7 mg/dL (0.2-1.3); Total Protein 6.2 g/dL (6.3-8.2)
[2020-03-24 07:38] LABS: Lactic Acid, Venous 2.6 mmol/L (0.7-2.0)
[2020-03-24] MEDS ORDERED: ONDANSETRON 4 MG/2 ML VIAL IVP PRN (07:41)
[2020-03-24] MEDS ORDERED: MORPHINE SULFATE 4 MG/ML SYRINGE IV PRN (07:41)
[2020-03-24] MEDS ORDERED: NALOXONE 0.4 MG/ML 1 ML VIAL IV PRN (07:41)
[2020-03-24] MEDS ORDERED: AMPICILLIN-SULBACTAM 3 GM in SODIUM CHLORIDE 0.9% 100 ML IVPB STA (07:44)
[2020-03-24] MEDS ORDERED: SODIUM CHLORIDE 0.9% 500 ML 500 ML IV STA (07:44)
--- NOTE | 2020-03-24 08:06 | XR ---
EXAMINATION TYPE: XR chest 1V portable DATE OF EXAM: 03/24/2020 COMPARISON: Chest x-ray 01/29/2020 HISTORY: Fever TECHNIQUE: Single frontal view of the chest is obtained. FINDINGS: Findings similar to prior exam. IMPRESSION: Correlate for pneumonia. There are interstitial changes within the lungs.
[2020-03-24] MEDS ORDERED: LORazepam 2 MG/ML INJ IV STA (08:32)
[2020-03-24] MEDS: DEXTROSE 5%-0.45% NACL 1,000 ML IV SCH ×2 (08:46→17:55)
[2020-03-24 09:47] LABS: C Reactive Protein <5.0 mg/L (<10.0)
[2020-03-24] MEDS: hydrALAZINE HCL 25 MG TAB PO SCH ×2 (12:21→16:52)
[2020-03-24] MEDS: METOPROLOL TARTRATE 25 MG TAB PO SCH ×2 (12:21→20:26)
[2020-03-24 12:23] LABS: Glucose,Whole Blood 311 mg/dL (75-99)
[2020-03-24] MEDS ORDERED: LORazepam 2 MG/ML INJ IV PRN (13:14)
[2020-03-24] MEDS ORDERED: hydrALAZINE HCL 20 MG/ML 1 ML VIAL IVP PRN (14:46)
--- NOTE | 2020-03-24 15:45 | HP ---
HISTORY AND PHYSICAL DATE OF SERVICE: 03/24/2020. CHIEF COMPLAINT: Change in mental status, nausea, vomiting, diarrhea and confusion. HISTORY OF PRESENT ILLNESS: This 65-year-old gentleman with a past medical history of CAD, CVA, TIA, dementia, diabetes mellitus type 2, history of GERD, GI bleed, hypertension, myocardial infarction, peripheral neuropathy, history of diabetic ketoacidosis, gastroparesis, being followed by Dr. Quispe in the outpatient setting was recently admitted significant COVID pneumonia. The patient improved significantly, but apparently the family found the patient is confused and increasingly agitated, some nausea, vomiting, and the patient was taken to [facility] and subsequently transferred to [facility] for further evaluation and treatment. The patient had multiple features including change in mental status with some renal failure, diabetes mellitus, and hypertensive encephalopathy. Blood pressure is significantly elevated. The patient also had a CT scan of the brain which is done elsewhere which showed significant cortical encephalomalacia in bilateral occipital with associated volume loss and patchy hypodensity, subcortical white matter tracts also noted, chronic ischemic changes infarcts are considered at this time. The ventricle also showed some ventriculomegaly. Currently the patient is slightly agitated was given Ativan and sedated, unable to give coherent history. Most of the history is taken by my discussion with staff and review of the chart at this time. There is no history of any trauma. PAST MEDICAL HISTORY: History of CAD, CVA, TIA, dementia, diabetes mellitus, type 2, history of hypertension, hyperlipidemia. The patient also had a kidney transplant also. MEDICATIONS: Medications prior to admission, home medications are: 1. Apresoline. 2. Prograf. 3. Zoloft. 4. Protonix. 5. Zofran. 6. Mycophenolic acid. 7. Lopressor. 8. Reglan. 9. Synthroid. 10.Levemir. 11.NovoLog. 12.Vitamin D3. 13.Lipitor. Doses are reviewed. ALLERGIES: Allergies are none. FAMILY HISTORY, SOCIAL HISTORY AND REVIEW OF SYSTEMS: Could not be taken because the patient's mental status. PHYSICAL EXAMINATION: The patient is stuporous. Pulse is 110, blood pressure 220/105, respirations 17, temperature 97.7, pulse ox 94% on room air. HEENT: Conjunctivae normal. Oral mucosa moist. NECK: No jugular venous distention. No lymph node enlargement. CARDIOVASCULAR: S1, S2 muffled. RESPIRATORY: Breath sounds diminished at the bases. A few scattered rhonchi and crackles. ABDOMEN: Soft, nontender. No mass palpable. LEGS: No edema, no swelling. NERVOUS SYSTEM: Patient is diffusely weak. LYMPHATICS: No lymphadenopathy of the neck, axillae or groin. SKIN: No ulcer, rash or bleeding. JOINTS: No active deforming arthropathy. LABS: WBC 11.9, hemoglobin 12.6. Creatinine is 2.41. Plasma lactic acid 2.6. Troponin 0.039. LDH is 764. The most recent chest x-ray which was reviewed personally by me showed bilateral infiltrates at this time. ASSESSMENT: 1. Change in mental status acute metabolic encephalopathy multifactorial possibly hypertensive encephalopathy. 2. Accelerated hypertension with hypertensive urgency. 3. Chronic microvascular infarcts as well as encephalomalacia bilateral occipital lobes on the CAT scan. 4. Nausea, vomiting, possibly acute gastroparesis. 5. Diabetes mellitus type 2. 6. History of coronary artery disease. 7. History of cerebrovascular accident, transient ischemic attack. 8. Dementia. 9. History of hemodialysis and renal transplant. 10.History of gastroesophageal reflux disease. 11.History of gastrointestinal bleed. 12.History of recent COVID and bilateral extensive COVID-19 associated pneumonia. 13.Hypertension. 14.Hyperlipidemia. 15.Myocardial infarction. 16.History of pneumonia. 17.History of peripheral neuropathy. 18.History of diabetic ketoacidosis. 19.History of end-stage renal disease with dialysis. 20.Chronic kidney disease stage 3 of the transplanted kidney. 21.History of sepsis. 22.History of rib fractures. 23.History of vascular dementia. 24.History of coronary artery disease, stent. 25.History of depression. 26.History of gait dysfunction. 27.History of legal blindness. 28.History of nicotine dependence. 29.NO CODE, NO CPR, NO VENT. RECOMMENDATIONS AND DISCUSSION: In this 65-year-old gentleman who presented with multiple complex medical issues, we will monitor the patient closely. Continue the current medications. Continues symptomatic treatment. Will initiate hydralazine and continue to monitor. Otherwise neurology consultation will obtained. Neurovascular workup also will be done with neuro checks. Resume the home medications. Nephrology consultation. Overall prognosis is extremely guarded because of multiple complex medical issues. I would also recommend some of the inflammatory markers of the COVID to rule out the possibility of prolonged COVID. CT scan of the chest also may be repeated if the D-dimer is positive, Probably CT angio. Otherwise, overall prognosis guarded and charts were reviewed extensively. See orders for further details. The prognosis guarded. Further recommendations to follow. A copy of dictation forwarded to Dr. Quispe who is the primary physician. MMODL / IJN: [id number] / [email or web address]
[2020-03-24] MEDS: INSULIN ASPART (NovoLOG) 100 UNIT/ML VIAL SQ SCH ×3 (16:28→21:03)
[2020-03-24] MEDS: PANTOPRAZOLE 40 MG/10 ML VIAL IVP SCH ×2 (16:37→20:58)
[2020-03-24] MEDS: TACROLIMUS 1 MG CAP PO SCH (16:38)
[2020-03-24] MEDS: METOCLOPRAMIDE 5 MG TAB PO SCH (16:38)
[2020-03-24] MEDS: AMPICILLIN-SULBACTAM 3 GM in SODIUM CHLORIDE 0.9% 100 ML IVPB SCH ×2 (16:38→23:02)
[2020-03-24] MEDS: amLODIPine 10 MG TAB PO SCH (16:38)
[2020-03-24] MEDS: HEPARIN SODIUM,PORCINE 5,000 UNIT/ML 1 ML VIAL SQ SCH ×2 (16:39→20:26)
[2020-03-24] MEDS: MYCOPHENOLATE SODIUM DR 180 MG TABLET.DR PO SCH (16:39)
--- NOTE | 2020-03-24 16:55 | P.CNNES ---
History of Present Illness Consult date: 03/24/20 Requesting physician: Nate Forde Reason for Consult: altered mental status History of Present Illness: This is a 65-year-old gentleman with medical history of vascular dementia, TIA (it is document 2013), legally blind out of both eyes, coronary artery disease status post stent in 2012 and 2015, diabetes mellitus, peripheral neuropathy, hypertension, myocardial infarction, end-stage renal disease who received dialysis in 2010 as well as had the renal transplant, hypothyroidism, recurrent urinary tract infection, previous Covid 19 infection resistant to the emergency department for altered mental status. The patient was transferred from outside facility ([facility]) for hypertensive emergency as well as encephalopathy. At the facility the patient's blood pressure was 226/112. His blood sugar at outside facility was 367. At outside facility patient had CT of the head and the per the patient's nurse it was reported as no acute subacute ischemia or any bleed. I attempted to look for the report the of the CT follow-up with outside facility but the seems that someone and that took the report out of the chart. Was notified by the nurse that the patient is on Plavix 75mg daily and Lipitor 80mg daily at home and he cannot take aspirin because of his renal disease especially with the history of renal transplant. The patient resides with his and according to the nurse she was notified by his that his sugars has been uncontrolled. Was notified that the patient refuses dialysis. He is DO NOT RESUSCITATE. Initial workup in our facility: Blood pressure of 245/124. Then a got as low as 152/70 but the last read is 210/102. Patient heart rate is 1:15 on presentation, temperature of 100.6 Fahrenheit oral, history of 24 and pulse ox of 99% room air. White blood cell is 11.9 and the neutrophils is 9.9. Sodium is 138. BUN is 37 and the creatinine is 2.41 Plasma lactic acid vein is 2.6. AST of 21 and ALT of 15 Ammonia is less than 9. TSH is 9.1 which is elevated the free T4 is 4.1 and that's considered normal. Initial serum glucose is 214 which is elevated. Troponin is 0.039. EKG now facility shows sinus tachycardia. Possible left atrial enlargement. Left axis deviation and abnormal EKG. Review of Systems Minute but the prone positive and negative per HPI. Past Medical History Past Medical History: Coronary Artery Disease (CAD), Cancer, Chest Pain / Angina, CVA/TIA, Dementia, Diabetes Mellitus, Dialysis, Eye Disorder, GERD/Reflux, GI Bleed, Hyperlipidemia, Hypertension, Myocardial Infarction (NM), Pneumonia, Renal Disease, Thyroid Disorder Additional Past Medical History / Comment(s): IDDM type II, neuropathy bilateral legs/feet, retinopathy bilaterally and is legally blind, DKAs, gastroparesis, frequent nausea and vomiting, ESRD with past hemo/peritoneal dialysis and in 2010 received kidney transplant, CKD stageIV, recurrent UTIs, UTI with sepsis, incomplete bladder emptying/self caths at bedtime, incontinent of urine at times, TIAs, 2013 fall with multiple fractured ribs, multiple falls, fractured L wrist with surgery, vascular dementia, skin cancer with removal, upper GI bleed, hypomagnesemia, hyponatremia. Last Myocardial Infarction Date:: 01/2019 History of Any Multi-Drug Resistant Organisms: None Reported Date of last positivie culture/infection: "years ago" MDRO Source:: stool Past Surgical History: Heart Catheterization, Heart Catheterization With Stent Additional Past Surgical History / Comment(s): 01/2019 cardiac cath tx medically, PCI with stents in 2012 and 2015, kidney transplant November 2010, patient has an AV fistula in the left upper extremity, EGDs, colonoscopy, skin cancer removal , bilateral eye retinal bleeds with surgery, teeth extractions, ORIF L wrist. Past Anesthesia/Blood Transfusion Reactions: No Reported Reaction Date of Last Stent Placement:: 09/2015 Smoking Status: Former smoker - Past Family History Brother(s) Additional Family Medical History / Comment(s): Brother had depression and comitted suicide. Father Family Medical History: Diabetes Mellitus Additional Family Medical History / Comment(s): Father lived into his 90s. Mother Family Medical History: Myocardial Infarction (NM) Additional Family Medical History / Comment(s): Mother of a NM at the age of 57yrs. Medications and Allergies Home Medications Medication Instructions Recorded Confirmed Type Levothyroxine Sodium [Synthroid] 50 mcg PO DAILY@0600 03/13/17 03/24/20 History Mycophenolate Sodium [Mycophenolic 720 mg PO BID@0800,1700 03/13/17 03/24/20 History Acid] Pantoprazole Sodium [Protonix] 40 mg PO BID@0800,1700 08/12/19 03/24/20 History Sertraline HCl [Zoloft] 100 mg PO HS@2100 08/12/19 03/24/20 History Tacrolimus [Prograf] 2 mg PO BID@0800,1700 10/31/19 03/24/20 History Insulin Detemir (Levemir) [Levemir] 10 unit SQ DAILY 12/31/19 03/24/20 History Metoclopramide [Reglan] 5 mg PO BID@0800,1700 01/23/20 03/24/20 History Atorvastatin [Lipitor] 80 mg PO HS@2100 01/28/20 03/24/20 History Clopidogrel [Plavix] 75 mg PO DAILY@0800 01/28/20 03/24/20 History INSULIN ASPART (NovoLOG) [NovoLOG See Protocol SQ ACHS 01/28/20 03/24/20 History (formulary)] hydrALAZINE HCL [Apresoline] 25 mg PO TID@0800,1200,1700 01/28/20 03/24/20 History Cholecalciferol [Vitamin D3 (25 25 mcg PO DAILY 03/24/20 03/24/20 History Mcg = 1000 Iu)] Insulin Detemir (Levemir) [Levemir] 6 unit SQ HS 03/24/20 03/24/20 History Metoprolol Tartrate [Lopressor] 25 mg PO BID 03/24/20 03/24/20 History Ondansetron Odt [Zofran Odt] 4 mg PO Q12HR 03/24/20 03/24/20 History Allergies Allergy/AdvReac Type Severity Reaction Status Date / Time No Known Allergies Allergy Verified 03/24/20 10:44 Physical Examination - Vital Signs Vital Signs: Vital Signs Temp Pulse Pulse Resp BP BP Pulse Ox 03/24/20 12:15 210/102 03/24/20 12:00 97.7 F 110 H 17 220/105 94 L 03/24/20 11:14 16 03/24/20 10:54 98.7 F 109 H 15 152/77 96 03/24/20 09:44 99.5 F 108 H 18 167/86 98 03/24/20 08:59 113 H 18 162/84 94 L 03/24/20 08:31 99.4 F 114 H 16 154/75 98 03/24/20 08:19 99.6 F 115 H 16 146/85 98 03/24/20 08:13 110 H 16 188/101 99 03/24/20 08:09 112 H 18 193/106 98 03/24/20 08:07 112 H 16 194/98 100 03/24/20 07:47 99.8 F H 112 H 16 203/105 99 03/24/20 06:43 100.6 F H 115 H 24 245/124 99 Intake and Output 03/24/20 03/24/20 03/24/20 06:59 14:59 22:59 Intake Total 2.000 Balance 2.000 Intake: Intake, IV Titration 2.000 Amount Clevidipine Butyrate 25 2.000 mg In Empty Bag 1 bag @ 1 MG/HR 2 mls/hr IV .Q24H [facility] Rx#:[id number] Other: Weight 81.647 kg 81.647 kg GENERAL: The patient is lying in bed and is not in acute distress. CHEST: The heart rate is regular rate rhythm. No murmurs to auscultation. LUNG: Clear to auscultation bilaterally no wheezing noted throughout. Not labored breathing. ABDOMEN/GI: Bowel sounds present in all 4 quadrants. No tenderness to palpation throughout. NEUROLOGICAL: Higher mental function: The patient is awake, alert, oriented to self and time. He stated he was in the hospital but did not know name of it. Patient is following simple commands. No aphasia and no neglect. Cranial nerves: The pupils are round, equal and reactive to light. Patient is legally blind out of both eyes (chronic). Extraocular movement is intact no nystagmus is noted. Facial sensation is normal to touch throughout. The facial strength is normal throughout. Hearing is mild decreased to hand rub bilatera lly. Tongue is midline and moved [id number] without any difficulty. No dysarthria is noted. Shoulder shrug is normal bilaterally. Motor: Gait is defered. The strength is 5 over 5 throughout bilateral upper extremity while lower extremities was limited because of cooperation but had at least 4+ bilaterally. Normal tone and bulk. Cerebellum: Normal finger to nose bilaterally. Sensation: Sensation is normal to touch throughout. Reflexes (right/left): 2+ in bilateral upper while 1+ in bilateral lower. Plantars are downgoing bilaterally. Results Serum rodriguez virus is nondetected. Admission study: PT of 10.6, INR 1.0 and PTT of 23.3. - Laboratory Findings CBC and BMP: 03/24/20 07:00 03/24/20 07:00 Abnormal Lab Findings: Abnormal Labs 03/24/20 03/24/20 03/24/20 07:00 07:00 07:00 WBC 11.9 H RBC 4.27 L Hgb 12.6 L Neutrophils # 9.9 H Lymphocytes # 0.9 L BUN 37 H Creatinine 2.41 H Glucose 214 H POC Glucose (mg/dL) Plasma Lactic Acid Raymond 2.6 H* Lactate Dehydrogenase 764 H Troponin I Total Protein 6.2 L TSH 9.110 H 03/24/20 03/24/20 07:00 12:22 WBC RBC Hgb Neutrophils # Lymphocytes # BUN Creatinine Glucose POC Glucose (mg/dL) 311 H Plasma Lactic Acid Raymond Lactate Dehydrogenase Troponin I 0.039 H* Total Protein TSH Assessment and Plan Assessment: This is a 65-year-old gentleman with medical problems that is transferred to [facility] ED for further workup off hypertensive encephalopathy. Encephalopathy due to uncontrolled hypertension also component of toxic metabolic encephalopathy (Uncontrolled sugar and kidney insuffiency)---improving History of TIA (documented in chart 2014) Legally blind out of both eyes (chronic) Vascular Dementia Uncontrolled hypertension Very low-grade fever on presentation was 100.6 but then resolved and has not had any further elevated temperature Acute on chronic kidney insufficiency Uncontrolled Diabetes mellitus (last HbA1c is 10.3 on 01/28/20 prior to that was 9.8) Peripheral neuropathy due to likely diabetes history of end-stage renal disease that was on dialysis in the past and had a transplant 2011 History of coronary artery disease status post stent in 2013 and 2016 Previous history of coronary 19 positive Plan: AST of 21 and ALT of 15 Ammonia is less than 9. TSH is 9.1 which is elevated the free T4 is 4.1 and that's considered normal. Ordered vitamin B12 and folate. I will not get any further imaging at this time on the patient since the patient has no focality and mentation is improving. The patient had a CT of head at outside facility. Please avoid drastic Lowering of blood pressure more than 15% within 24 hours to avoid any acute ischemia. Recommend lowering the blood pressure on a daily basis slowly. Dr. Loredo is consulted for mild leukocytosis Dr. Montero is consulted for renal issues We'll defer the rest of the medical management to the primary team. Patient is DO NOT RESUSCITATE. The plan was discussed with the patient's nurse. Thank you for the consult. Chris Ford MD Neuro-Hospitalist Time with Patient: Greater than 30
[2020-03-24 17:31] LABS: Glucose,Whole Blood 376 mg/dL (75-99)
[2020-03-24] MEDS: SERTRALINE 100 MG TAB PO SCH (20:26)
[2020-03-24] MEDS: ATORVASTATIN 80 MG TAB PO SCH (20:26)
[2020-03-24 21:00] LABS: Glucose,Whole Blood 265 mg/dL (75-99)
[2020-03-24] MEDS: INSULIN DETEMIR (LEVEMIR) 100 UNIT/ML SYR SQ SCH (21:03)
[2020-03-25 03:53] LABS: Appearance,Urine Clear (Clear); Bilirubin,Urine Negative (Negative); Blood,Urine Trace (Negative); Color,Urine Light Yellow; Glucose,Urine (UA) 3+ (Negative); Ketones,Urine 1+ (Negative); Leukocyte Esterase,Urine Negative (Negative); Mucus,Urine Rare /hpf; Nitrite,Urine Negative (Negative); Protein,Urine 3+ (Negative); RBC,Urine 1 /hpf (0-5); Specific Gravity,Urine 1.012 (1.001-1.035); Urobilinogen,Urine <2.0 mg/dL (<2.0); WBC,Urine 4 /hpf (0-5)
[2020-03-25] MEDS: DEXTROSE 5%-0.45% NACL 1,000 ML IV SCH (04:51)
[2020-03-25] MEDS: INSULIN ASPART (NovoLOG) 100 UNIT/ML VIAL SQ SCH ×4 (06:03→20:43)
[2020-03-25] MEDS: LEVOTHYROXINE 50 MCG TAB PO SCH (06:06)
[2020-03-25 06:18] LABS: Glucose,Whole Blood 131 mg/dL (75-99)
--- NOTE | 2020-03-25 06:19 | CONS ---
CONSULTATION DATE OF SERVICE: 03/24/2020 REASON FOR CONSULTATION: Fever. HISTORY OF PRESENT ILLNESS: The patient is a 65-year-old male with a past medical history significant for vascular dementia, TIA in this patient who did have history of hypertension and end- stage renal disease, status post renal transplant, currently on immunosuppressive medication. The patient did have a history of recurrent UTI and did have a previous history of COVID-19 infection. The patient presented to the outside facility for evaluation of mental status changes and weakness. The patient was noticed to have hypertensive emergency with blood pressure 212/112. The patient also had elevated blood sugar. The patient subsequently has been transferred to this facility for further management. Apparently the patient had a CT of the brain and was negative for any bleed. The patient on presentation to this facility was noticed to have a fever of 100.7 degrees Fahrenheit that has prompted this infectious disease consultation. Workup in the ER including so far, white count of 11.9, creatinine is 2.41. Lactic acid was 2.6. Troponin mildly elevated. Gonzalez PCR was negative. The patient did have a chest x-ray that was correlated for pneumonia and interstitial changes within the lungs. The patient himself denies having any headache. No chest pain. No shortness of breath or cough. Denies any abdominal pain. No nausea, no vomiting and no diarrhea. REVIEW OF SYMPTOMS: Positive points has been mentioned in HPI. Rest of the systems are negative. PAST MEDICAL HISTORY: Significant for end-stage renal disease. This patient is status post renal transplant, coronary artery disease, CVA, TIA, diabetes mellitus, dementia, GI bleed, hyperlipidemia, hypertension, pneumonia and COVID-19 infection. PAST SURGICAL HISTORY: Heart catheterization with stent, renal transplant, colonoscopy, skin cancer removed. SOCIAL HISTORY: No history of smoking, drinking or drug use. FAMILY HISTORY: Father with history of diabetes. Mother with history of MD. ALLERGIES: No known drug allergies. MEDICATIONS: Medications include the patient is currently on Norvasc, Unasyn 3 g q.8h. He is on Lipitor, vitamin D3, folic acid, heparin, hydralazine, NovoLog, Levemir, Ativan, Lopressor, Theragran, Narcan, Zofran, Protonix, Zoloft, Prograf. PHYSICAL EXAMINATION: Blood pressure 154/76, pulse of 80, temperature 98.4, his T-max 100.6, 98% on room air. General description is the patient is a middle-aged male lying in bed in no distress. No tachypnea or accessory muscle of respiration use. HEENT examination shows slight pallor. No scleral icterus. Oral mucous membrane is dry. Neck trachea central, no thyromegaly. Lungs: Unlabored breathing clear to auscultation anteriorly. Heart S1, S2. Regular rate and rhythm. Abdomen is soft, no tenderness. No rigidity or rigidity. Extremities: No edema of the feet. Skin examination no rash or mass palpable. Neurologically the patient is awake, alert, oriented x2. Mood and affect normal. LABS: Hemoglobin 12.6, white count 11.9, BUN of 37, creatinine is 2.41. Electrolytes have been normal. Lactic acid 2.6. Gonzalez PCR negative. Chest x-ray report mentioned above. DIAGNOSTIC IMPRESSION: Patient admitted to the hospital with mental status changes likely multifactorial. This patient also has . The patient did have history of recurrent urinary tract infection and more likely urinary source. The patient's abdomen was soft on clinical examination. No significant respiratory symptoms and saturating 100% on room air. Clinically doubt significant pneumonia. PLAN: 1. We will check a UA and culture. 2. Continue empiric Unasyn 3 g q8h while waiting for the culture to finalize. 3. We will follow on clinical condition and culture to further adjust medication if needed. Thank you for this consultation. Will follow this patient along with you. MMODL / IJN: [id number] /
[2020-03-25 08:22] LABS: Potassium 4.2 mmol/L (3.5-5.1)
[2020-03-25 08:23] LABS: Calcium 8.8 mg/dL (8.4-10.2)
--- NOTE | 2020-03-25 09:00 | P.NPCON ---
History of Present Illness - Reason for Consult chronic renal failure - History of Present Illness Reason for consultation: Chronic kidney disease and renal transplant management History of present illness: Patient is a 65-year-old male seen in renal consultation for chronic kidney disease and renal transplant management. Patient has chronic kidney disease stage IV secondary to diabetic kidney disease and long-term calcineurin inhibitor use with baseline creatinine in the range of 2-2.5. GFR is currently at baseline. Patient received a donor renal allograft in November 2010. He is maintained on Prograf and Myfortic for antirejection medications. He was brought to the hospital for altered mental status. Patient blood pressure was over 200 systolic and 100 diastolic on admission. It has improved. Most recent blood pressure 170/81 from 4 AM this morning. Patient is awake and alert. He denies any chest pain or shortness of breath. Good urine output. No hematuria. Lactic acid was high at 2.6 on admission. He did receive normal saline bolus in the ER. Currently off IV fluids. No edema. He did have a temperature of 1.6F upon admission. Afebrile this morning. Cultures are pending. He is maintained on Unasyn. Denies use of nonsteroidals. He has long-standing histo ry of diabetes. Admits to a mild cough. COVID 19 give but he did have infection in the past. Vital signs are stable. General: The patient appeared well nourished and normally developed. HEENT: Head exam is unremarkable. Neck is without jugular venous distension. LUNGS: Breath sounds decreased. HEART: Rate and Rhythm are regular. ABDOMEN: Soft, nontender. EXTREMITITES: No edema. Past Medical History Past Medical History: Coronary Artery Disease (CAD), Cancer, Chest Pain / Angina, CVA/TIA, Dementia, Diabetes Mellitus, Dialysis, Eye Disorder, GERD/Reflu x, GI Bleed, Hyperlipidemia, Hypertension, Myocardial Infarction (NH), Pneumonia, Renal Disease, Thyroid Disorder Additional Past Medical History / Comment(s): acute renal failure, covid 19, mild hyponatremia, asymptomatic bacturia. Other hx: IDDM type II, neuropathy bilateral legs/feet, retinopathy bilaterally and is nearly blind, gastroparesis, ESRD with past hemo/peritoneal dialysis and in 2010 received kidney transplant, CKD stageIV-pt states it has been recommended he has hemodialysis but he is not willing to do so, recurrent UTIs, UTI with sepsis, incomplete bladder emptying/self cathed on occasion in the past, incontinent of urine at times, TIAs, 2014 fall with multiple fractured ribs, vascular dementia, skin cancer with removal, upper GI bleed, hypomagnesemia Last Myocardial Infarction Date:: 01/2019 History of Any Multi-Drug Resistant Organisms: None Reported Date of last positivie culture/infection: "years ago" MDRO Source:: stool Past Surgical History: Heart Catheterization, Heart Catheterization With Stent Additional Past Surgical History / Comment(s): 01/2019 cardiac cath tx medically, PCI with stents in 2012 and 2015, kidney transplant November 2010, patient has an AV fistula in the left upper extremity, colonoscopy, skin cancer removal , bilateral eye retinal bleeds with surgery, teeth extractions. Past Anesthesia/Blood Transfusion Reactions: No Reported Reaction Date of Last Stent Placement:: 09/2015 Past Psychological History: Depression Additional Psychological History / Comment(s): Pt resides with his spouse. He is legally blind. He uses a magnifier to read. Pt states spouse works during daytime. He uses a walker or cane to ambulate. He has a glucometer. Smoking Status: Never smoker Past Alcohol Use History: None Reported Additional Past Alcohol Use History / Comment(s): Pt quit smoking 03/20/19. He had been smoking since he was 13 years old. He does have history of alcoholism has been alcohol free for 9 years. Past Drug Use History: None Reported - Past Family History Brother(s) Additional Family Medical History / Comment(s): Brother had depression and comitted suicide. Father Family Medical History: Diabetes Mellitus Additional Family Medical History / Comment(s): Father lived into his 90s. Mother Family Medical History: Myocardial Infarction (NH) Additional Family Medical History / Comment(s): Mother of a NH at the age of 57yrs. Medications and Allergies Home Medications Medication Instructions Recorded Confirmed Type Levothyroxine Sodium [Synthroid] 50 mcg PO DAILY@0600 03/13/17 03/24/20 History Mycophenolate Sodium [Mycophenolic 720 mg PO BID@0800,1700 03/13/17 03/24/20 History Acid] Pantoprazole Sodium [Protonix] 40 mg PO BID@0800,1700 08/12/19 03/24/20 History Sertraline HCl [Zoloft] 100 mg PO HS@2100 08/12/19 03/24/20 History Tacrolimus [Prograf] 2 mg PO BID@0800,1700 10/31/19 03/24/20 History Insulin Detemir (Levemir) [Levemir] 10 unit SQ DAILY 12/31/19 03/24/20 History Metoclopramide [Reglan] 5 mg PO BID@0800,1700 01/23/20 03/24/20 History Atorvastatin [Lipitor] 80 mg PO HS@2100 01/28/20 03/24/20 History Clopidogrel [Plavix] 75 mg PO DAILY@0800 01/28/20 03/24/20 History INSULIN ASPART (NovoLOG) [NovoLOG See Protocol SQ ACHS 01/28/20 03/24/20 History (formulary)] hydrALAZINE HCL [Apresoline] 25 mg PO TID@0800,1200,1700 01/28/20 03/24/20 History Cholecalciferol [Vitamin D3 (25 25 mcg PO DAILY 03/24/20 03/24/20 History Mcg = 1000 Iu)] Insulin Detemir (Levemir) [Levemir] 6 unit SQ HS 03/24/20 03/24/20 History Metoprolol Tartrate [Lopressor] 25 mg PO BID 03/24/20 03/24/20 History Ondansetron Odt [Zofran Odt] 4 mg PO Q12HR 03/24/20 03/24/20 History Allergies Allergy/AdvReac Type Severity Reaction Status Date / Time No Known Allergies Allergy Verified 03/24/20 10:44 Physical Exam Vitals: Vital Signs Temp Pulse Pulse Resp BP BP Pulse Ox 03/25/20 03:47 97.9 F 83 16 170/81 98 03/25/20 02:00 72 16 03/24/20 23:28 98.0 F 72 16 159/72 97 03/24/20 20:00 98.4 F 80 18 154/76 98 03/24/20 18:53 83 17 184/84 95 03/24/20 16:00 97.8 F 90 17 205/99 97 03/24/20 12:15 210/102 03/24/20 12:05 90 17 03/24/20 12:00 97.7 F 110 H 17 220/105 94 L 03/24/20 11:14 16 03/24/20 10:54 98.7 F 109 H 15 152/77 96 03/24/20 09:44 99.5 F 108 H 18 167/86 98 03/24/20 08:59 113 H 18 162/84 94 L Intake and Output 03/24/20 03/25/20 03/25/20 22:59 06:59 14:59 Intake Total 145 200 240 Output Total 2400 Balance 145 -2200 240 Intake: IV 20 Invasive Line 1 10 Invasive Line 2 10 Intake, IV Titration 100 Amount Ampicillin-Sulbactam 3 gm 100 In Sodium Chloride 0.9% 100 ml @ 200 mls/hr IVPB Q8HR [facility] Rx#:[id number] Oral 125 100 240 Output: Urine 2400 Straight 1200 Other: # Voids 4 1 Weight 65.5 kg Results - Lab Results Most recent lab results Calcium 8.8 mg/dL (8.4-10.2) 03/25/20 07:02 Phosphorus 3.4 mg/dL (2.5-4.5) 03/24/20 07:00 Magnesium 1.7 mg/dL (1.6-2.3) 03/24/20 07:00 03/24/20 07:00 03/25/20 07:02 Assessment and Plan Plan: Assessment: 1. Chronic kidney disease stage IV secondary to diabetic kidney disease and long-term calcineurin inhibitor use. Baseline creatinine 2-2.5. Stable. 2. Hypertensive urgency. 3. Status post donor renal allograft in 2010. 4. Diabetes mellitus. 5. Metabolic encephalopathy. Neurology following. 6. Fever. Resolved. On antibiotics. ID following. Plan: Remains off IV fluids. Encouraged oral intake. Follow-up cultures. Maintain Prograf and Myfortic. Check a.m. Prograf level. Maintain current antihypertensives. Avoid rapid lowering of blood pressure. Thank you for the consultation. I will continue to follow the patient with you during his hospital stay.
[2020-03-25 09:02] LABS: Basophils % (A) 0 %; Eosinophils % (A) 1 %; HCT 38.8 % (39.0-53.0); Lymphocytes # (A) 1.7 k/uL (1.0-4.8); Lymphocytes % (A) 19 %; MCH 28.8 pg (25.0-35.0); MCHC 30.8 g/dL (31.0-37.0); MCV 93.7 fL (80.0-100.0); Monocytes # (A) 0.6 k/uL (0-1.0); Monocytes % (A) 7 %; Neutrophils # (A) 6.2 k/uL (1.3-7.7); Neutrophils % (A) 71 %; Platelet Count 197 k/uL (150-450); RBC 4.15 m/uL (4.30-5.90); RDW 14.6 % (11.5-15.5); WBC 8.7 k/uL (3.8-10.6)
[2020-03-25] MEDS: AMPICILLIN-SULBACTAM 3 GM in SODIUM CHLORIDE 0.9% 100 ML IVPB SCH ×3 (09:47→23:03)
[2020-03-25] MEDS: METOCLOPRAMIDE 5 MG TAB PO SCH ×2 (09:48→18:13)
[2020-03-25] MEDS: amLODIPine 10 MG TAB PO SCH (09:48)
[2020-03-25] MEDS: carvediloL 6.25 MG TAB PO SCH ×2 (09:48→18:13)
[2020-03-25] MEDS: INSULIN DETEMIR (LEVEMIR) 100 UNIT/ML SYR SQ SCH ×2 (09:48→20:42)
[2020-03-25] MEDS: HEPARIN SODIUM,PORCINE 5,000 UNIT/ML 1 ML VIAL SQ SCH ×2 (09:48→20:38)
[2020-03-25] MEDS: hydrALAZINE HCL 25 MG TAB PO SCH ×3 (09:48→18:13)
[2020-03-25] MEDS: CHOLECALCIFEROL 25 MCG (1000 IU) TABLET PO SCH (09:48)
[2020-03-25] MEDS: PANTOPRAZOLE 40 MG/10 ML VIAL IVP SCH ×2 (09:48→21:06)
[2020-03-25] MEDS: TACROLIMUS 1 MG CAP PO SCH ×2 (09:49→18:13)
[2020-03-25] MEDS: MYCOPHENOLATE SODIUM DR 180 MG TABLET.DR PO SCH ×2 (09:49→18:11)
[2020-03-25 10:50] LABS: Poikilocytosis (M) Present
[2020-03-25 12:11] LABS: Glucose,Whole Blood 271 mg/dL (75-99)
--- NOTE | 2020-03-25 12:41 | P.CRDCN ---
History of Present Illness History of present illness: 65-year-old male patient who presented to the hospital with altered mental status. He was found to be quite hypertensive blood pressure greater than 200 mmHg. He is a very poor historian but when I examined him he denied any chest discomfort or shortness of breath. He had no orthopnea and he wanted to go home Past history of renal transplant stable encephalopathy, CAD, CVA, dementia, type 2 diabetes, hypertension, GI bleeding Recently admitted for "pneumonia Twelve-lead EKG shows sinus tachycardia heart rate 115 beats a minute On examination Initially his blood pressures greater than 200 mmHg but with anti-evidence of therapy his blood pressure is better. He was started on amlodipine and metoprolol was discontinued at with all was started Breath sounds are reduced bilaterally no rhonchi no crackles Normal heart sounds normal S1 normal S2 Abdomen soft Extremities are warm Orthopnea Impression hypertensive encephalopathy with mental status changes, very high blood pressures Blood pressure is improved now Suggest continue observation at least 24 hours more and gradually normalize blood pressure. Amlodipine has been started Stopped Metoprolol Started carvedilol 6.25 mg twice daily Oral hydralazine I will discontinue IV hydralazine Past Medical History Past Medical History: Coronary Artery Disease (CAD), Cancer, Chest Pain / Angina, CVA/TIA, Dementia, Diabetes Mellitus, Dialysis, Eye Disorder, GERD/Reflux, GI Bleed, Hyperlipidemia, Hypertension, Myocardial Infarction ([place]), Pneumonia, Renal Disease, Thyroid Disorder Additional Past Medical History / Comment(s): acute renal failure, covid 19, mild hyponatremia, asymptomatic bacturia. Other hx: IDDM type II, neuropathy bilateral legs/feet, retinopathy bilaterally and is nearly blind, gastroparesis, ESRD with past hemo/peritoneal dialysis and in 2010 received kidney transplant, CKD stageIV-pt states it has been recommended he has hemodialysis but he is not willing to do so, recurrent UTIs, UTI with sepsis, incomplete bladder emptying /self cathed on occasion in the past, incontinent of urine at times, TIAs, 2014 fall with multiple fractured ribs, vascular dementia, skin cancer with removal, upper GI bleed, hypomagnesemia Last Myocardial Infarction Date:: 01/2019 History of Any Multi-Drug Resistant Organisms: None Reported Date of last positivie culture/infection: "years ago" MDRO Source:: stool Past Surgical History: Heart Catheterization, Heart Catheterization With Stent Additional Past Surgical History / Comment(s): 01/2019 cardiac cath tx medically, PCI with stents in 2012 and 2015, kidney transplant November 2010, patient has an AV fistula in the left upper extremity, colonoscopy, skin cancer removal , bilateral eye retinal bleeds with surgery, teeth extractions. Past Anesthesia/Blood Transfusion Reactions: No Reported Reaction Date of Last Stent Placement:: 09/2015 Past Psychological History: Depression Additional Psychological History / Comment(s): Pt resides with his spouse. He is legally blind. He uses a magnifier to read. Pt states spouse works during da ytime. He uses a walker or cane to ambulate. He has a glucometer. Smoking Status: Never smoker Past Alcohol Use History: None Reported Additional Past Alcohol Use History / Comment(s): Pt quit smoking 03/20/19. He had been smoking since he was 13 years old. He does have history of alcoholism has been alcohol free for 9 years. Past Drug Use History: None Reported - Past Family History Brother(s) Additional Family Medical History / Comment(s): Brother had depression and comitted suicide. Father Family Medical History: Diabetes Mellitus Additional Family Medical History / Comment(s): Father lived into his 90s. Mother Family Medical History: Myocardial Infarction (MN) Additional Family Medical History / Comment(s): Mother of a MN at the age of 57yrs. Medications and Allergies Home Medications Medication Instructions Recorded Confirmed Type Levothyroxine Sodium [Synthroid] 50 mcg PO DAILY@0600 03/13/17 03/24/20 History Mycophenolate Sodium [Mycophenolic 720 mg PO BID@0800,1700 03/13/17 03/24/20 History Acid] Pantoprazole Sodium [Protonix] 40 mg PO BID@0800,1700 08/12/19 03/24/20 History Sertraline HCl [Zoloft] 100 mg PO HS@2100 08/12/19 03/24/20 History Tacrolimus [Prograf] 2 mg PO BID@0800,1700 10/31/19 03/24/20 History Insulin Detemir (Levemir) [Levemir] 10 unit SQ DAILY 12/31/19 03/24/20 History Metoclopramide [Reglan] 5 mg PO BID@0800,1700 01/23/20 03/24/20 History Atorvastatin [Lipitor] 80 mg PO HS@2100 01/28/20 03/24/20 History Clopidogrel [Plavix] 75 mg PO DAILY@0800 01/28/20 03/24/20 History INSULIN ASPART (NovoLOG) [NovoLOG See Protocol SQ ACHS 01/28/20 03/24/20 History (formulary)] hydrALAZINE HCL [Apresoline] 25 mg PO TID@0800,1200,1700 01/28/20 03/24/20 History Cholecalciferol [Vitamin D3 (25 25 mcg PO DAILY 03/24/20 03/24/20 History Mcg = 1000 Iu)] Insulin Detemir (Levemir) [Levemir] 6 unit SQ HS 03/24/20 03/24/20 History Metoprolol Tartrate [Lopressor] 25 mg PO BID 03/24/20 03/24/20 History Ondansetron Odt [Zofran Odt] 4 mg PO Q12HR 03/24/20 03/24/20 History Allergies Allergy/AdvReac Type Severity Reaction Status Date / Time No Known Allergies Allergy Verified 03/24/20 10:44 Physical Exam Vitals: Vital Signs Temp Pulse Resp BP Pulse Ox 03/25/20 08:00 97.2 F L 82 17 178/88 99 03/25/20 03:47 97.9 F 83 16 170/81 98 03/25/20 02:00 72 16 03/24/20 23:28 98.0 F 72 16 159/72 97 03/24/20 20:00 98.4 F 80 18 154/76 98 03/24/20 18:53 83 17 184/84 95 03/24/20 16:00 97.8 F 90 17 205/99 97 Intake and Output 03/24/20 03/25/20 03/25/20 22:59 06:59 14:59 Intake Total 145 200 240 Output Total 2400 Balance 145 -2200 240 Intake: IV 20 Invasive Line 1 10 Invasive Line 2 10 Intake, IV Titration 100 Amount Ampicillin-Sulbactam 3 gm 100 In Sodium Chloride 0.9% 100 ml @ 200 mls/hr IVPB Q8HR [facility] Rx#:[id number] Oral 125 100 240 Output: Urine 2400 Straight 1200 Other: # Voids 4 1 Weight 65.5 kg Results 03/25/20 07:02 02/04/21 07:02 CBC 03/25/20 Range/Units 07:02 WBC 8.7 (3.8-10.6) k/uL RBC 4.15 L (4.30-5.90) m/uL Hgb 12.0 L (13.0-17.5) gm/dL Hct 38.8 L (39.0-53.0) % Plt Count 197 (150-450) k/uL Comprehensive Metabolic Panel 03/25/20 Range/Units 07:02 Sodium 136 L (137-145) mmol/L Potassium 4.2 (3.5-5.1) mmol/L Chloride 99 (98-107) mmol/L Carbon Dioxide 28 (22-30) mmol/L BUN 34 H (9-20) mg/dL Creatinine 2.30 H (0.66-1.25) mg/dL Glucose 128 H (74-99) mg/dL Calcium 8.8 (8.4-10.2) mg/dL Current Medications Generic Name Dose Route Start Last Admin Trade Name Freq PRN Reason Stop Dose Admin Amlodipine Besylate 10 mg 03/24/20 15:00 03/25/20 09:48 Amlodipine 10 Mg Tab PO 10 mg DAILY [facility] Administration Atorvastatin Calcium 80 mg 03/24/20 21:00 03/24/20 20:26 Atorvastatin 80 Mg Tab PO 80 mg HS@2100 [facility] Administration Carvedilol 6.25 mg 03/25/20 08:00 03/25/20 09:48 Carvedilol 6.25 Mg Tab PO 6.25 mg BID-W/MEALS [facility] Administration Cholecalciferol 25 mcg 03/25/20 09:00 03/25/20 09:48 Cholecalciferol 25 Mcg (1000 Iu) Tablet PO 25 mcg DAILY [facility] Administration Folic Acid 1 mg 03/25/20 12:00 Folic Acid 1 Mg Tab PO DAILY@1200 [facility] Heparin Sodium (Porcine) 5,000 unit 03/24/20 15:00 03/25/20 09:48 Heparin Sodium,Porcine 5,000 Unit/Ml 1 Ml Vial SQ 5,000 unit Q12HR [facility] Administration Hydralazine HCl 25 mg 03/24/20 12:15 03/25/20 09:48 Hydralazine Hcl 25 Mg Tab PO 25 mg TID@0800,1200,1700 [facility] Administration Ampicillin Sodium/Sulbactam 100 mls @ 200 mls/hr 03/24/20 16:00 03/25/20 09:47 Sodium 3 gm/ Sodium Chloride IVPB 200 mls/hr Q8HR [facility] Administration Insulin Aspart 0 unit 03/24/20 12:30 03/25/20 06:03 Insulin Aspart (Novolog) 100 Unit/Ml Vial SQ Not Given ACHS [facility] Protocol Insulin Detemir 10 unit 03/25/20 09:00 03/25/20 09:48 Insulin Detemir (Levemir) 100 Unit/Ml Syr SQ 10 unit DAILY [facility] Administration Insulin Detemir 6 unit 03/24/20 21:00 03/24/20 21:03 Insulin Detemir (Levemir) 100 Unit/Ml Syr SQ 6 unit HS [facility] Administration Levothyroxine Sodium 50 mcg 03/25/20 06:00 03/25/20 06:06 Levothyroxine 50 Mcg Tab PO 50 mcg DAILY@0600 [facility] Administration Lorazepam 1 mg 03/24/20 13:14 03/24/20 20:26 Lorazepam 2 Mg/Ml Inj IV 1 mg Q2HR PRN Administration Anxiety Metoclopramide HCl 5 mg 03/24/20 17:00 03/25/20 09:48 Metoclopramide 5 Mg Tab PO 5 mg BID@0800,1700 [facility] Administration Morphine Sulfate 4 mg 03/24/20 07:41 Morphine Sulfate 4 Mg/Ml Syringe IV Q4HR PRN Severe Pain Multivitamins 1 each 03/25/20 12:00 Multivitamins, Thera 1 Each Tab PO DAILY@1200 [facility] Mycophenolate Sodium 720 mg 03/24/20 17:00 03/25/20 09:[address] 180 Mg Tablet.Dr PO 720 mg BID@0800,1700 [facility] Administration Naloxone HCl 0.2 mg 03/24/20 07:41 Naloxone 0.4 Mg/Ml 1 Ml Vial IV Q2M PRN Opioid Reversal Ondansetron HCl 4 mg 03/24/20 07:41 03/24/20 20:58 Ondansetron 4 Mg/2 Ml Vial IVP 4 mg Q8HR PRN Administration Nausea And Vomiting Pantoprazole Sodium 40 mg 03/24/20 14:46 03/25/20 09:48 Pantoprazole 40 Mg/10 Ml Vial IVP 40 mg BID [facility] Administration Sertraline HCl 100 mg 03/24/20 21:00 03/24/20 20:26 Sertraline 100 Mg Tab PO 100 mg HS@2100 [facility] Administration Tacrolimus 2 mg 03/24/20 17:00 03/25/20 09:49 Tacrolimus 1 Mg Cap PO 2 mg BID@0800,1700 [facility] Administration Thiamine HCl 100 mg 03/25/20 12:00 Thiamine 100 Mg Tab PO DAILY@1200 [facility] Intake and Output 03/24/20 03/25/20 03/25/20 22:59 06:59 14:59 Intake Total 145 200 240 Output Total 2400 Balance 145 -2200 240 Intake: IV 20 Invasive Line 1 10 Invasive Line 2 10 Intake, IV Titration 100 Amount Ampicillin-Sulbactam 3 gm 100 In Sodium Chloride 0.9% 100 ml @ 200 mls/hr IVPB Q8HR [facility] Rx#:[id number] Oral 125 100 240 Output: Urine 2400 Straight 1200 Other: # Voids 4 1 Weight 65.5 kg 03/25/20 07:02 03/25/20 07:02
--- NOTE | 2020-03-25 12:50 | P.PN ---
Subjective Progress Note Date: 03/25/20 Patient was seen at bedside and he continues to be responding the following commands. I looked in the chart and it seems that the primary team had a copy of the report the CT Brain 03/24/20 from outside facility and was reported as chronic microvascular infarct and mild generalized volume loss. The encephalomalacia of over the bilateral occipital poles area no interval changes. Family the blood pressure is in 170s over 80s. Objective - Vital Signs Vital signs: Vital Signs Temp 97.2 F L 03/25/20 08:00 Pulse 82 03/25/20 08:00 Resp 17 03/25/20 08:00 BP 178/88 03/25/20 08:00 Pulse Ox 99 03/25/20 08:00 Intake & Output 03/24/20 03/25/20 03/25/20 18:59 06:59 18:59 Intake Total 127.000 220 240 Output Total 2400 Balance 127.000 -2180 240 Weight 81.647 kg 65.5 kg Intake: IV 20 Invasive Line 1 10 Invasive Line 2 10 Intake, IV Titration 2.000 100 Amount Ampicillin-Sulbactam 3 gm 100 In Sodium Chloride 0.9% 100 ml @ 200 mls/hr IVPB Q8HR [facility] Rx#:[id number] Clevidipine Butyrate 25 2.000 mg In Empty Bag 1 bag @ 1 MG/HR 2 mls/hr IV .Q24H [facility] Rx#:[id number] Oral 125 100 240 Output: Urine 2400 Straight 1200 Other: # Voids 4 1 - Exam GENERAL: The patient is lying in bed and is not in acute distress. NEUROLOGICAL: Higher mental function: The patient is awake, alert, oriented to self and time. He stated he was in the hospital but did not know name of it. Patient is following simple commands. No aphasia and no neglect. Cranial nerves: The pupils are round, equal and reactive to light. Patient is legally blind out of both eyes (chronic). Extraocular movement is intact no nystagmus is noted. Facial sensation is normal to touch throughout. The facial strength is normal throughout. Hearing is mild decreased to hand rub bilaterally. Tongue is midline and moved [id number] without any difficulty. No dysarthria is noted. Shoulder shrug is normal bilaterally. Motor: Gait is defered. The strength is 5 over 5 throughout bilateral upper extremity while lower extremities was limited because of cooperation but had at least 4+ bilaterally. Normal tone and bulk. Cerebellum: Normal finger to nose bilaterally. Sensation: Sensation is normal to touch throughout. Reflexes (right/left): 2+ in bilateral upper while 1+ in bilateral lower. Plantars are downgoing bilaterally. - Labs CBC & Chem 7: 03/25/20 07:02 03/25/20 07:02 Labs: Abnormal Lab Results - Last 24 Hours (Table) 03/24/20 03/24/20 03/25/20 Range/Units 17:29 20:50 03:40 RBC (4.30-5.90) m/uL Hgb (13.0-17.5) gm/dL Hct (39.0-53.0) % MCHC (31.0-37.0) g/dL Sodium (137-145) mmol/L BUN (9-20) mg/dL Creatinine (0.66-1.25) mg/dL Glucose (74-99) mg/dL POC Glucose (mg/dL) 376 H 265 H (75-99) mg/dL Urine Protein 3+ H (Negative) Urine Glucose (UA) 3+ H (Negative) Urine Ketones 1+ H (Negative) Urine Blood Trace H (Negative) Urine Mucus Rare H (None) /hpf 03/25/20 03/25/20 03/25/20 Range/Units 06:02 07:02 07:02 RBC 4.15 L (4.30-5.90) m/uL Hgb 12.0 L (13.0-17.5) gm/dL Hct 38.8 L (39.0-53.0) % MCHC 30.8 L (31.0-37.0) g/dL Sodium 136 L (137-145) mmol/L BUN 34 H (9-20) mg/dL Creatinine 2.30 H (0.66-1.25) mg/dL Glucose 128 H (74-99) mg/dL POC Glucose (mg/dL) 131 H (75-99) mg/dL Urine Protein (Negative) Urine Glucose (UA) (Negative) Urine Ketones (Negative) Urine Blood (Negative) Urine Mucus (None) /hpf 03/25/20 Range/Units 12:09 RBC (4.30-5.90) m/uL Hgb (13.0-17.5) gm/dL Hct (39.0-53.0) % MCHC (31.0-37.0) g/dL Sodium (137-145) mmol/L BUN (9-20) mg/dL Creatinine (0.66-1.25) mg/dL Glucose (74-99) mg/dL POC Glucose (mg/dL) 271 H (75-99) mg/dL Urine Protein (Negative) Urine Glucose (UA) (Negative) Urine Ketones (Negative) Urine Blood (Negative) Urine Mucus (None) /hpf Microbiology - Last 24 Hours (Table) 03/25/20 03:40 Urine Culture - Preliminary Urine,Catheterized 03/24/20 07:29 Blood Culture - Preliminary Blood No Growth after 24 hours Assessment and Plan Assessment: This is a 65-year-old gentleman with medical problems that is transferred to [facility] ED for further workup off hypertensive encephalopathy. Encephalopathy due to uncontrolled hypertension also component of metabolic encephalopathy (Uncontrolled sugar and kidney insuffiency)---improving History of TIA (documented in chart 2014) Encephalomalacia over the bilateral occipital Legally blind out of both eyes (chronic) due to encephalomalacia over occipital Vascular Dementia Hypertensive urgency Very low-grade fever on presentation was 100.6 but then resolved and has not had any further elevated temperature Acute on chronic kidney insufficiency Uncontrolled Diabetes mellitus (last HbA1c is 10.3 on 01/28/20 prior to that was 9.8) Peripheral neuropathy due to likely diabetes history of end-stage renal disease that was on dialysis in the past and had a transplant 2010 History of coronary artery disease status post stent in 2012 and 2016 Previous history of coronary 19 positive Plan: AST of 21 and ALT of 15 Ammonia is less than 9. TSH is 9.1 which is elevated the free T4 is 4.1 and that's considered normal. vitamin B12: 716 (normal). Folate: Pending. I will not get any further imaging at this time on the patient since the patient has no focality and mentation is improved. Patient is on clopidogrel as well as Lipitor 80 mg at home for secondary troponin prophylaxis. Currently the patient was restarted on tour 80 mg daily. I recommended for the patient that to be started on Plavix 75 mg daily for secondary stroke prophylaxis especially with history of strokes in the past per the CT. Please avoid drastic Lowering of blood pressure more than 15% within 24 hours to avoid any acute ischemia. Recommend lowering the blood pressure on a daily basis slowly. Dr. Loredo is consulted for mild leukocytosis Neuphrology is on board We'll defer the rest of the medical management to the primary team. Patient is DO NOT RESUSCITATE. The plan was discussed with the patient's nurse. Because the patient history of strokes in the past recommend the patient to follow-up with a neurologist within 2-3 weeks as outpatient. There is no further neurological workup needed at this time. We'll sign off. Please reconsult if needed Chris Ford MD Neuro-Hospitalist Time with Patient: Less than 30
[2020-03-25] MEDS: FOLIC ACID 1 MG TAB PO SCH (13:26)
[2020-03-25] MEDS: MULTIVITAMINS, THERA 1 EACH TAB PO SCH (13:26)
[2020-03-25] MEDS: THIAMINE 100 MG TAB PO SCH (13:26)
--- NOTE | 2020-03-25 14:01 | PN ---
PROGRESS NOTE DATE OF SERVICE: 03/25/2020 REASON FOR FOLLOWUP: Fever, possible UTI. INTERVAL HISTORY: The patient is currently afebrile. The patient is breathing comfortably. Patient remains slightly sleepy, lethargic. reported by the nursing staff. PHYSICAL EXAMINATION: Blood pressure 178/88 with pulse of 82, temperature 97.2. He is 99% on room air. General description is a middle-aged male lying in bed in no distress. RESPIRATORY SYSTEM: Unlabored breathing, clear to auscultation anteriorly. HEART: S1, S2. Regular rate and rhythm. ABDOMEN: Soft, no tenderness. LABS: Hemoglobin is 12, white count 8.7, BUN of 34, creatinine 2.30. Urine came back negative. Blood culture so far negative. DIAGNOSTIC IMPRESSION AND PLAN: Patient admitted to the hospital with elevated blood pressure, shortness of breath and did have a low-grade fever with concern for possible urinary tract infection. Urine came back negative. Possible pneumonitis. The patient's fever responded to Unasyn to continue while waiting for the blood culture to finalize. Continue supportive care. MMODL / IJN: [id number] /
--- NOTE | 2020-03-25 15:36 | PN ---
PROGRESS NOTE This 65-year-old gentleman who was admitted with multiple complex medical issues had change in mental status, nausea, vomiting, diarrhea and confusion had possible hypertensive encephalopathy. Blood pressure is much improved at this time. Multiple consultants, including Nephrology, are following the patient. Creatinine is 2.3. The cultures are negative. Past medical history reviewed. REVIEW OF SYSTEMS: CARDIOVASCULAR SYSTEM: No angina, palpitations. RESPIRATORY SYSTEM: As mentioned earlier. GI: As mentioned earlier. : No dysuria or retention. NERVOUS SYSTEM: No numbness, weakness. CURRENT MEDICATIONS: Reviewed. They include Norvasc, Unasyn, Lipitor, heparin, Apresoline, Levemir, Synthroid, Reglan. Doses are reviewed. PHYSICAL EXAMINATION: Patient is alert, oriented x2. Pulse 89, blood pressure 190/92, respiration 18, temperature 98.4, pulse ox 99% on room air. HEENT: Conjunctivae normal. NECK: No jugular venous distention. CARDIOVASCULAR SYSTEM: S1, S2 muffled. RESPIRATORY SYSTEM: Breath sounds diminished at the bases. A few scattered rhonchi and crackles. ABDOMEN: Soft, non-tender. LEGS: No edema. No swelling. NERVOUS SYSTEM: No focal deficit. LABS: WBC 8.6, hemoglobin is 12, sodium 136, potassium 4.2. ASSESSMENT: 1. Change in mental status, acute metabolic encephalopathy, multifactorial, possibly hypertensive encephalopathy. 2. Accelerated hypertension with hypertensive urgency. 3. Chronic microvascular infarct as well as encephalomalacia, bilateral occipital lobes on the CT scan done elsewhere. 4. Nausea, vomiting; possible acute gastroparesis. 5. Troponin 0.09, indeterminate. 6. History of diabetes mellitus, type 2. 7. History of coronary artery disease. 8. History of multiple urinary tract infections with Klebsiella. 9. History of cerebrovascular accident, transient ischemic attack. 10.History of dementia. 11.History of hemodialysis and renal transplant. 12.History of gastroesophageal reflux disease. 13.History of gastrointestinal bleed. 14.History of recent COVID and bilateral extensive COVID-19 as well as pneumonia. 15.Hypertension. 16.Hyperlipidemia. 17.History of myocardial infarction. 18.History of pneumonia. 19.History of peripheral neuropathy. 20.History of diabetic ketoacidosis. 21.History of end-stage renal disease with hemodialysis for chronic kidney disease, stage 3, with a transplant kidney. 22.History of sepsis. 23.History of rib fracture. 24.History of vascular dementia. 25.History of coronary artery disease, stent. 26.History of depression. 27.History of gait dysfunction. 28.History of legal blindness. 29.History of nicotine dependence. 30.NO CODE, NO CPR, NO VENT. RECOMMENDATIONS AND DISCUSSION: In this 65-year-old gentleman who presented with multiple complex medical issues, the blood pressure has improved and sodium has improved also. UA did not show acute abnormality. COVID-19 repeat test was negative. Troponin is indeterminate. Multiple consultants have seen the patient. The patient is on empiric antibiotic at this time. Otherwise, prognosis is guarded. The patient is currently on IV fluids. Cardiology has seen the patient as well as Neurology. Continued observation was recommended. A chest x- ray which was done was personally reviewed by me and showed bilateral lesions possibly suggestive of healing COVID-19 pneumonia. Prognosis once again is guarded. Further recommendations to follow. MMODL / IJN: [id number] /
[2020-03-25 16:54] LABS: Glucose,Whole Blood 228 mg/dL (75-99)
[2020-03-25 19:54] LABS: Glucose,Whole Blood 143 mg/dL (75-99)
[2020-03-25] MEDS: ATORVASTATIN 80 MG TAB PO SCH (20:38)
[2020-03-25] MEDS: SERTRALINE 100 MG TAB PO SCH (20:38)
[2020-03-26] MEDS: INSULIN ASPART (NovoLOG) 100 UNIT/ML VIAL SQ SCH (06:21)
[2020-03-26 06:22] LABS: Glucose,Whole Blood 75 mg/dL (75-99)
[2020-03-26] MEDS: LEVOTHYROXINE 50 MCG TAB PO SCH (06:24)
[2020-03-26] MEDS: carvediloL 6.25 MG TAB PO SCH (06:24)
[2020-03-26 07:41] LABS: Basophils % (A) 0 %; Eosinophils # (A) 0.1 k/uL (0-0.7); Eosinophils % (A) 1 %; HCT 37.6 % (39.0-53.0); Lymphocytes # (A) 1.5 k/uL (1.0-4.8); Lymphocytes % (A) 22 %; MCH 29.7 pg (25.0-35.0); MCHC 31.8 g/dL (31.0-37.0); MCV 93.4 fL (80.0-100.0); Mean Platelet Volume 8.8; Monocytes # (A) 0.6 k/uL (0-1.0); Monocytes % (A) 8 %; Neutrophils # (A) 4.5 k/uL (1.3-7.7); Neutrophils % (A) 67 %; Platelet Count 179 k/uL (150-450); RBC 4.03 m/uL (4.30-5.90); RDW 14.4 % (11.5-15.5); WBC 6.8 k/uL (3.8-10.6)
[2020-03-26 07:55] LABS: Calcium 8.6 mg/dL (8.4-10.2); Potassium 4.5 mmol/L (3.5-5.1)
[2020-03-26 08:38] VITALS: RESP 18; TEMP 97.3
[2020-03-26] MEDS: INSULIN DETEMIR (LEVEMIR) 100 UNIT/ML SYR SQ SCH (08:55)
[2020-03-26] MEDS: MYCOPHENOLATE SODIUM DR 180 MG TABLET.DR PO SCH (08:55)
[2020-03-26] MEDS: TACROLIMUS 1 MG CAP PO SCH (08:55)
[2020-03-26] MEDS: CHOLECALCIFEROL 25 MCG (1000 IU) TABLET PO SCH (08:55)
[2020-03-26] MEDS: HEPARIN SODIUM,PORCINE 5,000 UNIT/ML 1 ML VIAL SQ SCH (08:56)
[2020-03-26] MEDS: METOCLOPRAMIDE 5 MG TAB PO SCH (08:56)
[2020-03-26] MEDS: hydrALAZINE HCL 25 MG TAB PO SCH (08:56)
[2020-03-26] MEDS: amLODIPine 10 MG TAB PO SCH (08:56)
[2020-03-26] MEDS: AMPICILLIN-SULBACTAM 3 GM in SODIUM CHLORIDE 0.9% 100 ML IVPB SCH (08:56)
[2020-03-26] MEDS: PANTOPRAZOLE 40 MG/10 ML VIAL IVP SCH (08:56)
--- NOTE | 2020-03-26 10:51 | P.PN ---
Subjective Patient is seen in follow-up for chronic kidney disease and renal transplant management. Patient has chronic kidney disease stage IV secondary to diabetic kidney disease and long-term calcineurin inhibitor use a baseline creatinine in the range of 2-2.5. Renal function is fairly stable. Good urine output. Oral intake is fair. Blood pressure 167/77 this morning. No edema. No chest pain or shortness of breath. Vital signs are stable. General: The patient appeared well nourished and normally developed. HEENT: Head exam is unremarkable. Neck is without jugular venous distension. LUNGS: Breath sounds decreased. HEART: Rate and Rhythm are regular. ABDOMEN: Soft, nontender. EXTREMITITES: No edema. Objective - Vital Signs Vital signs: Vital Signs Temp 97.3 F L 03/26/20 08:00 Pulse 74 03/26/20 08:00 Resp 18 03/26/20 08:00 BP 167/77 03/26/20 08:00 Pulse Ox 96 03/26/20 08:00 Intake & Output 03/25/20 03/26/20 03/26/20 18:59 06:59 18:59 Intake Total 840 200 236 Output Total 900 300 Balance -60 -100 236 Weight 64.4 kg Intake: Intake, IV Titration 100 Amount Ampicillin-Sulbactam 3 gm 100 In Sodium Chloride 0.9% 100 ml @ 200 mls/hr IVPB Q8HR [facility] Rx#:[id number] Oral 840 100 236 Output: Urine 900 300 Straight 300 Other: # Voids 1 300 # Bowel Movements 1 - Labs CBC & Chem 7: 03/26/20 06:42 03/26/20 06:42 Labs: Abnormal Lab Results - Last 24 Hours (Table) 03/25/20 03/25/20 03/25/20 Range/Units 12:09 16:52 19:53 RBC (4.30-5.90) m/uL Hgb (13.0-17.5) gm/dL Hct (39.0-53.0) % Sodium (137-145) mmol/L BUN (9-20) mg/dL Creatinine (0.66-1.25) mg/dL POC Glucose (mg/dL) 271 H 228 H 143 H (75-99) mg/dL 03/26/20 03/26/20 Range/Units 06:42 06:42 RBC 4.03 L (4.30-5.90) m/uL Hgb 12.0 L (13.0-17.5) gm/dL Hct 37.6 L (39.0-53.0) % Sodium 134 L (137-145) mmol/L BUN 34 H (9-20) mg/dL Creatinine 2.53 H (0.66-1.25) mg/dL POC Glucose (mg/dL) (75-99) mg/dL Microbiology - Last 24 Hours (Table) 03/24/20 07:29 Blood Culture - Preliminary Blood No Growth after 48 hours 03/25/20 03:40 Urine Culture - Preliminary Urine,Catheterized Assessment and Plan Plan: Assessment: 1. Chronic kidney disease stage IV secondary to diabetic kidney disease and long-term calcineurin inhibitor use. Baseline creatinine 2-2.5. Stable. 2. Hypertensive urgency. 3. Status post donor renal allograft in 2010. 4. Diabetes mellitus. 5. Metabolic encephalopathy. Neurology following. 6. Fever. ? Pneumonia. On antibiotics. ID following. Plan: Remains off IV fluids. Encouraged oral intake. Follow-up cultures. Maintain Prograf and Myfortic. Follow-up Prograf level. Increase hydralazine to 50 mg 3 times daily.
[2020-03-26 11:19] VITALS: BP 178/85; PULSE 76
[2020-03-26] MEDS: FOLIC ACID 1 MG TAB PO SCH (11:21)
[2020-03-26] MEDS: THIAMINE 100 MG TAB PO SCH (11:21)
[2020-03-26] MEDS: MULTIVITAMINS, THERA 1 EACH TAB PO SCH (11:21)
[2020-03-26 12:00] LABS: Glucose,Whole Blood 142 mg/dL (75-99)
[2020-03-26] MEDS ORDERED: hydrALAZINE HCL 50 MG TAB PO SCH (12:00)
--- NOTE | 2020-03-26 13:02 | P.PN ---
Subjective This is a pleasant 65-year-old male past medical history significant for chronic kidney disease status post renal transplant, diabetes mellitus, hypertension and dementia. He is seen and examined sitting up resting comfortably in bed in no acute distress. He is quite frustrated and wants to go home. He denies chest pain, shortness of breath, dizziness or palpitations. Blood pressure 178/85 heart rate 76 afebrile maintaining oxygen saturation on room air. Laboratory data reviewed, sodium 134, potassium 4.5 and creatinine 2.53. Currently maintained on atorvastatin 80 mg daily, Coreg 6.25 mg twice a day, hydralazine 50 mg 3 times a day and amlodipine 10 mg daily. GENERAL: Well-appearing, well-nourished and in no acute distress. NECK: Supple without JVD or thyromegaly. LUNGS: Breath sounds clear to auscultation bilaterally. Respiration equal and unlabored. No wheezes, rales or rhonchi. HEART: Regular rate and rhythm without murmurs, rubs or gallops. S1 and S2 heard. EXTREMITIES: Normal range of motion, no edema. No clubbing or cyanosis. Peripheral pulses intact. ASSESSMENT Hypertensive encephalopathy PLAN Stable for discharge on current medical regimen. Further outpatient blood pressure management. Nurse Practitioner note has been reviewed, I agree with a documented findings and plan of care. Patient was seen and examined. Objective - Vital Signs Vital signs: Vital Signs Temp 97.3 F L 03/26/20 08:00 Pulse 76 03/26/20 11:17 Resp 18 03/26/20 11:17 BP 178/85 03/26/20 11:17 Pulse Ox 97 03/26/20 11:17 Intake & Output 03/25/20 03/26/20 03/26/20 18:59 06:59 18:59 Intake Total 840 200 236 Output Total 900 300 Balance -60 -100 236 Weight 64.4 kg Intake: Intake, IV Titration 100 Amount Ampicillin-Sulbactam 3 gm 100 In Sodium Chloride 0.9% 100 ml @ 200 mls/hr IVPB Q8HR [facility] Rx#:[id number] Oral 840 100 236 Output: Urine 900 300 Straight 300 Other: # Voids 1 300 # Bowel Movements 1 - Labs CBC & Chem 7: 03/26/20 06:42 03/26/20 06:42 Labs: Abnormal Lab Results - Last 24 Hours (Table) 03/25/20 03/25/20 03/26/20 Range/Units 16:52 19:53 06:42 RBC 4.03 L (4.30-5.90) m/uL Hgb 12.0 L (13.0-17.5) gm/dL Hct 37.6 L (39.0-53.0) % Sodium (137-145) mmol/L BUN (9-20) mg/dL Creatinine (0.66-1.25) mg/dL POC Glucose (mg/dL) 228 H 143 H (75-99) mg/dL 03/26/20 03/26/20 Range/Units 06:42 11:57 RBC (4.30-5.90) m/uL Hgb (13.0-17.5) gm/dL Hct (39.0-53.0) % Sodium 134 L (137-145) mmol/L BUN 34 H (9-20) mg/dL Creatinine 2.53 H (0.66-1.25) mg/dL POC Glucose (mg/dL) 142 H (75-99) mg/dL Microbiology - Last 24 Hours (Table) 03/24/20 07:29 Blood Culture - Preliminary Blood No Growth after 48 hours 03/25/20 03:40 Urine Culture - Preliminary Urine,Catheterized
--- NOTE | 2020-03-26 14:06 | PN ---
PROGRESS NOTE DATE OF SERVICE: 03/26/2020 REASON FOR FOLLOWUP: Fever. INTERVAL HISTORY: The patient is currently afebrile. The patient is breathing comfortably. The patient denies having any chest pain or shortness of breath or cough. No abdominal pain and no diarrhea. PHYSICAL EXAMINATION: Blood pressure 178/85 with a pulse of 76, temperature 97.3. He is 97% on room air. General description is a middle-aged male lying in bed in no distress. RESPIRATORY SYSTEM: Unlabored breathing, clear to auscultation anteriorly. HEART: S1, S2. Regular rate and rhythm. ABDOMEN: Soft, no tenderness. LABS: Hemoglobin is 12, white count 6.8, BUN of 34, creatinine 2.53. DIAGNOSTIC IMPRESSION AND PLAN: Patient admitted to hospital with fever, initially concerned for urinary tract infection. Urine came back negative. Overall improvement on Unasyn. Culture negative to finish therapy with short course of oral Augmentin. Close outpatient followup. MMODL / IJN: [id number] /
--- NOTE | 2020-03-26 15:39 | P.DS ---
Providers Date of admission: 03/24/20 07:41 Expected date of discharge: 03/26/20 Attending physician: Nate Forde Consults: 03/24/20 07:41 Consult Physician Routine Consulting Provider: Andie Mcclellan Consult Reason/Comments: HTN Do you want consulting provider notified?: Yes Consult Physician Routine Consulting Provider: Mahsa Montero Consult Reason/Comments: arf Do you want consulting provider notified?: Yes 03/24/20 07:42 Consult Physician Urgent Consulting Provider: Michele Loredo Consult Reason/Comments: fever Do you want consulting provider notified?: Yes 03/24/20 14:45 Consult Physician Routine Consulting Provider: Chris Ford Consult Reason/Comments: change in mental status Do you want consulting provider notified?: Yes [facility]: Final Diagnosis Change in mental status, acute metabolic encephalopathy, multifactorial, possibly hypertensive encephalopathy Accelerated hypertension with hypertensive urgency Chronic microvascular infarct as well as encephalomalacia, bilateral occipital lobes on the computed tomography scan done elsewhere Nausea, vomiting, possible acute gastroparesis Troponin 0.09, indeterminate History of diabetes mellitus type 2 History of coronary artery disease history of multiple urinary tract infections with Klebsiella history of cerebrovascular accident, TIA history of dementia history of hemodialysis and renal transplant History of gastroesophageal reflux disease History of gastrointestinal bleed history of recent Covid and bilateral extensive Covid 19 as well as pneumonia Hypertension Hyperlipidemia History of myocardial infarction History of pneumonia History of peripheral neuropathy History of diabetic ketoacidosis renal disease with hemodialysis for chronic k idney disease, stage III with a transplant kidney history of sepsis History of rib fracture History of vascular dementia history of coronary artery disease, stent history of depression history of gait dysfunction History of legal blindness history of nicotine dependence No code, as no CPR, no vent Discharge disposition Patient is being discharged in a stable condition with guarded prognosis to [facility]. Patient will follow-up with Dr. Calderon in the outpatient setting upon discharge. Patient also instructed to follow up with neurology Dr. Rodríguez in 1- 2 weeks. Patient will continue with oral antibiotics in the form of Augmentin twice daily for the next 5 days to complete course. Total time taken is greater than 35 minutes. Hospital course This is a 65-year-old male who was recently admitted with change in mental status, nausea, vomiting, diarrhea along with confusion possible hypertensive encephalopathy and was being closely monitored. Patient was seen and evaluated by neurology along with nephrology. Patient was started on IV Unasyn and will continue with oral Augmentin twice daily for the next 5 days to complete a course. Patient instructed to follow up with neurology in the outpatient setting in 1-2 weeks. Patient will also continue to follow-up with primary care provider Dr. Calderon along with nephrology upon discharge. PT/OT evaluated the patient recommending subacute rehab for continued physical therapy although patient refused. Currently no reports of chest pain, shortness of breath, or palpitations. Patient is afebrile. No reports of nausea or vomiting and patient is tolerating diet. Patient is instructed to follow-up with primary care provider upon discharge and resources provided. Patient will be discharged home today. Guarded prognosis. On exam vital signs are stable. Cardio S1, S2 are muffled. Respiratory system shows diminished breath sounds at the bases with no wheezing or rhonchi noted. Abdomen is soft and nontender. Nervous system shows diffuse weakness. Please refer to medication reconciliation sheet for a list of medications. Patient Condition at Discharge: Fair Plan - Discharge Summary Discharge Rx Participant: No New Discharge Prescriptions: New hydrALAZINE HCL [Apresoline] 50 mg PO TID@0800,1200,1700 30 Days #90 tab Amoxicillin/Potassium Clav [Augmentin 500-125 Tablet] 1 tab PO Q12HR 5 Days #10 tab carvediloL [Coreg] 6.25 mg PO BID-W/MEALS 30 Days #60 tab Folic Acid 1 mg PO DAILY@1200 30 Days #30 tab Multivitamins, Thera [Multivitamin (formulary)] 1 each PO DAILY@1200 30 Days #30 tab amLODIPine [Norvasc] 10 mg PO DAILY 30 Days #30 tab Thiamine [Vitamin B-1] 100 mg PO DAILY@1200 30 Days #30 tab Continue Mycophenolate Sodium [Mycophenolic Acid] 720 mg PO BID@0800,1700 Levothyroxine Sodium [Synthroid] 50 mcg PO DAILY@0600 Pantoprazole Sodium [Protonix] 40 mg PO BID@0800,1700 Sertraline HCl [Zoloft] 100 mg PO HS@2100 Tacrolimus [Prograf] 2 mg PO BID@0800,1700 Insulin Detemir (Levemir) [Levemir] 10 unit SQ DAILY Metoclopramide [Reglan] 5 mg PO BID@0800,1700 Clopidogrel [Plavix] 75 mg PO DAILY@0800 Atorvastatin [Lipitor] 80 mg PO HS@2100 INSULIN ASPART (NovoLOG) [NovoLOG (formulary)] See Protocol SQ ACHS Cholecalciferol [Vitamin D3 (25 Mcg = 1000 Iu)] 25 mcg PO DAILY Ondansetron Odt [Zofran ODT] 4 mg PO Q12HR Insulin Detemir (Levemir) [Levemir] 6 unit SQ HS Discontinued hydrALAZINE HCL [Apresoline] 25 mg PO TID@0800,1200,1700 Metoprolol Tartrate [Lopressor] 25 mg PO BID Discharge Medication List Levothyroxine Sodium [Synthroid] 50 mcg PO DAILY@0600 03/13/17 [History] Mycophenolate Sodium [Mycophenolic Acid] 720 mg PO BID@0800,1700 03/13/17 [History] Pantoprazole Sodium [Protonix] 40 mg PO BID@0800,1700 08/12/19 [History] Sertraline HCl [Zoloft] 100 mg PO HS@2100 08/12/19 [History] Tacrolimus [Prograf] 2 mg PO BID@0800,1700 10/31/19 [History] Insulin Detemir (Levemir) [Levemir] 10 unit SQ DAILY 12/31/19 [History] Metoclopramide [Reglan] 5 mg PO BID@0800,1700 01/23/20 [History] Atorvastatin [Lipitor] 80 mg PO HS@2100 01/28/20 [History] Clopidogrel [Plavix] 75 mg PO DAILY@0800 01/28/20 [History] INSULIN ASPART (NovoLOG) [NovoLOG (formulary)] See Protocol SQ ACHS 01/28/20 [History] Cholecalciferol [Vitamin D3 (25 Mcg = 1000 Iu)] 25 mcg PO DAILY 03/24/20 [History] Insulin Detemir (Levemir) [Levemir] 6 unit SQ HS 03/24/20 [History] Ondansetron Odt [Zofran ODT] 4 mg PO Q12HR 03/24/20 [History] Amoxicillin/Potassium Clav [Augmentin 500-125 Tablet] 1 tab PO Q12HR 5 Days #10 tab 03/26/20 [Rx] Folic Acid 1 mg PO DAILY@1200 30 Days #30 tab 03/26/20 [Rx] Multivitamins, Thera [Multivitamin (formulary)] 1 each PO DAILY@1200 30 Days #30 tab 03/26/20 [Rx] Thiamine [Vitamin B-1] 100 mg PO DAILY@1200 30 Days #30 tab 03/26/20 [Rx] amLODIPine [Norvasc] 10 mg PO DAILY 30 Days #30 tab 03/26/20 [Rx] carvediloL [Coreg] 6.25 mg PO BID-W/MEALS 30 Days #60 tab 03/26/20 [Rx] hydrALAZINE HCL [Apresoline] 50 mg PO TID@0800,1200,1700 30 Days #90 tab 03/26/20 [Rx] Follow up Appointment(s)/Referral(s): Taz Rodríguez MD [REFERRING] - 2 Weeks Luis Felipe Calderon DO [STAFF PHYSICIAN] - 1-2 days Patient Instructions/Handouts: Hypertension (DC), Pneumonia (DC) Activity/Diet/Wound Care/Special Instructions: Activity limited until follow-up follow up with primary care provider upon discharge Follow-up with neurology outpatient Continue antibiotics for 5 days until finished Follow-up nephrology outpatient Continue current diet and monitor blood sugars before meals and at bedtime and keep a log of blood sugar readings for primary care follow-up Discharge Disposition: HOME SELF-CARE
== END 2020-03-26 15:55 | disposition home or self-care (01) | DRG 77 ==
LOC: EC 06:34 → 3SCARD 07:41
PROVIDERS: ADMIT Hospitalist; ATTEND Hospitalist
DX: I67.4 Hypertensive encephalopathy (principal); G92 Toxic encephalopathy; J18.9 Pneumonia, unspecified organism; I16.1 Hypertensive emergency; N39.0 Urinary tract infection, site not specified; Z94.0 Kidney transplant status; N18.4 Chronic kidney disease, stage 4 (severe); E11.319 Type 2 diabetes mellitus with unspecified diabetic retinopathy without macular edema; F01.50 Vascular dementia, unspecified severity, without behavioral disturbance, psychotic disturbance, mood disturbance, and anxiety; E11.43 Type 2 diabetes mellitus with diabetic autonomic (poly)neuropathy; G93.89 Other specified disorders of brain; E11.42 Type 2 diabetes mellitus with diabetic polyneuropathy; E11.22 Type 2 diabetes mellitus with diabetic chronic kidney disease; Z66 Do not resuscitate; E11.65 Type 2 diabetes mellitus with hyperglycemia; F10.21 Alcohol dependence, in remission; E78.5 Hyperlipidemia, unspecified; Z79.4 Long term (current) use of insulin; Z20.822 Contact with and (suspected) exposure to COVID-19; I25.10 Atherosclerotic heart disease of native coronary artery without angina pectoris; K21.9 Gastro-esophageal reflux disease without esophagitis; I12.9 Hypertensive chronic kidney disease with stage 1 through stage 4 chronic kidney disease, or unspecified chronic kidney disease; K31.84 Gastroparesis; F32.9 Major depressive disorder, single episode, unspecified; H54.8 Legal blindness, as defined in USA; R26.9 Unspecified abnormalities of gait and mobility; E03.9 Hypothyroidism, unspecified; R00.0 Tachycardia, unspecified; R29.6 Repeated falls; R32 Unspecified urinary incontinence; R33.9 Retention of urine, unspecified; I25.2 Old myocardial infarction; Z79.890 Hormone replacement therapy; Z79.899 Other long term (current) drug therapy; Z79.02 Long term (current) use of antithrombotics/antiplatelets; Z86.73 Personal history of transient ischemic attack (TIA), and cerebral infarction without residual deficits; Z87.440 Personal history of urinary (tract) infections; Z87.01 Personal history of pneumonia (recurrent); Z86.16 Personal history of COVID-19; Z87.19 Personal history of other diseases of the digestive system; Z87.81 Personal history of (healed) traumatic fracture; Z85.828 Personal history of other malignant neoplasm of skin; Z87.891 Personal history of nicotine dependence; Z95.5 Presence of coronary angioplasty implant and graft; Z81.8 Family history of other mental and behavioral disorders; Z83.3 Family history of diabetes mellitus; Z82.49 Family history of ischemic heart disease and other diseases of the circulatory system
CPT/HCPCS: 36415; 71045; 80048; 80053; 80197; 81001; 82140; 82550; 82607; 82747; 83605; 83615; 83735; 83880; 84100; 84439; 84443; 84481; 84484; 85025; 85610; 85730; 86140; 87040; 87086; 87635; 93005; 96360; 96361; 96365; 96375; 99291

== ENCOUNTER 2020-06-15 11:42 | Inpatient (IN) | payer OTHER, MEDICARE ==
--- NOTE | 2020-06-15 12:18 | XR ---
EXAMINATION TYPE: XR KUB DATE OF EXAM: 06/15/2020 12:10 PM CLINICAL HISTORY: Pain with nausea vomiting and diarrhea for 3 days. TECHNIQUE: Two Upright KUB images of the abdomen are obtained. COMPARISON: Abdominal x-ray December 31, 2019. CT October 31, 2019 FINDINGS: Scattered gas is seen in non-distended small and large bowel loops with few scattered air f luid levels in the left abdomen. Extensive vascular calcification including central vascular calcific ations in both kidneys are redemonstrated. The lung bases are clear and the osseous structures are in tact. IMPRESSION: Overall nonobstructive bowel gas pattern redemonstrated.
[2020-06-15] MEDS ORDERED: SODIUM CHLORIDE 0.9% 500 ML 500 ML IV STA (12:21)
[2020-06-15] MEDS ORDERED: METOCLOPRAMIDE 5 MG/ML 2 ML VIAL IVP STA (12:21)
[2020-06-15] MEDS ORDERED: FAMOTIDINE 20 MG/2 ML VIAL IV STA (12:21)
--- NOTE | 2020-06-15 12:24 | ED ---
General Adult HPI - General Chief complaint: Nausea/Vomiting/Diarrhea Stated complaint: Vomiting Time Seen by Provider: 06/15/20 12:10 Source: patient, family, RN notes reviewed Mode of arrival: wheelchair Limitations: no limitations - History of Present Illness Initial comments: Patient is a pleasant 65-year-old male presenting to the emergency department with family with complaints of vomiting. Onset of symptoms was around 2 days ago. Patient does have a history of gastroparesis. Patient is vomiting a least 5 times daily. Patient has nausea and difficulty taking his blood pressure medication. Blood pressure was high this morning. Patient is also having diarrhea couple times per day. No abdominal pain. No fevers. - Related Data Home Medications Medication Instructions Recorded Confirmed Levothyroxine Sodium [Synthroid] 50 mcg PO DAILY@0600 03/13/17 03/24/20 Mycophenolate Sodium [Mycophenolic 720 mg PO BID@0800,1700 03/13/17 03/24/20 Acid] Pantoprazole Sodium [Protonix] 40 mg PO BID@0800,1700 08/12/19 03/24/20 Sertraline HCl [Zoloft] 100 mg PO HS@2100 08/12/19 03/24/20 Tacrolimus [Prograf] 2 mg PO BID@0800,1700 10/31/19 03/24/20 Insulin Detemir (Levemir) [Levemir] 10 unit SQ DAILY 12/31/19 03/24/20 Metoclopramide [Reglan] 5 mg PO BID@0800,1700 01/23/20 03/24/20 Atorvastatin [Lipitor] 80 mg PO HS@2100 01/28/20 03/24/20 Clopidogrel [Plavix] 75 mg PO DAILY@0800 01/28/20 03/24/20 INSULIN ASPART (NovoLOG) [NovoLOG See Protocol SQ ACHS 01/28/20 03/24/20 (formulary)] Cholecalciferol [Vitamin D3 (25 25 mcg PO DAILY 03/24/20 03/24/20 Mcg = 1000 Iu)] Insulin Detemir (Levemir) [Levemir] 6 unit SQ HS 03/24/20 03/24/20 Ondansetron Odt [Zofran ODT] 4 mg PO Q12HR 03/24/20 03/24/20 Previous Rx's Medication Instructions Recorded Amoxicillin/Potassium Clav 1 tab PO Q12HR 5 Days #10 tab 03/26/20 [Augmentin 500-125 Tablet] Folic Acid 1 mg PO DAILY@1200 30 Days #30 tab 03/26/20 Multivitamins, Thera [Multivitamin 1 each PO DAILY@1200 30 Days #30 03/26/20 (formulary)] tab Thiamine [Vitamin B-1] 100 mg PO DAILY@1200 30 Days #30 03/26/20 tab amLODIPine [Norvasc] 10 mg PO DAILY 30 Days #30 tab 03/26/20 carvediloL [Coreg] 6.25 mg PO BID-W/MEALS 30 Days #60 03/26/20 tab hydrALAZINE HCL [Apresoline] 50 mg PO TID@0800,1200,1700 30 03/26/20 Days #90 tab Allergies Allergy/AdvReac Type Severity Reaction Status Date / Time No Known Allergies Allergy Verified 06/15/20 11:49 Review of Systems ROS Statement: Those systems with pertinent positive or pertinent negative responses have been documented in the HPI. ROS Other: All systems not noted in ROS Statement are negative. Constitutional: Denies: fever Eyes: Denies: eye pain ENT: Denies: ear pain Respiratory: Denies: cough, dyspnea Cardiovascular: Denies: chest pain Endocrine: Reports: fatigue Gastrointestinal: Reports: nausea, vomiting, diarrhea. Denies: abdominal pain Genitourinary: Denies: dysuria Musculoskeletal: Denies: back pain Skin: Denies: rash Neurological: Denies: weakness Past Medical History Past Medical History: Coronary Artery Disease (CAD), Cancer, Chest Pain / Angina, CVA/TIA, Dementia, Diabetes Mellitus, Dialysis, Eye Disorder, GERD/Reflux, GI Bleed, Hyperlipidemia, Hypertension, Myocardial Infarction (CT), Pneumonia, Renal Disease, Thyroid Disorder Additional Past Medical History / Comment(s): acute renal failure, covid 19, mild hyponatremia, asymptomatic bacturia. Other hx: IDDM type II, neuropathy bilateral legs/feet, retinopathy bilaterally and is nearly blind, gas troparesis, ESRD with past hemo/peritoneal dialysis and in 2010 received kidney transplant, CKD stageIV-pt states it has been recommended he has hemodialysis but he is not willing to do so, recurrent UTIs, UTI with sepsis, incomplete bladder emptying/self cathed on occasion in the past, incontinent of urine at times, TIAs, 2013 fall with multiple fractured ribs, vascular dementia, skin cancer with removal, upper GI bleed, hypomagnesemia Last Myocardial Infarction Date:: 01/2019 History of Any Multi-Drug Resistant Organisms: None Reported Date of last positivie culture/infection: "years ago" MDRO Source:: stool Past Surgical History: Heart Catheterization, Heart Catheterization With Stent Additional Past Surgical History / Comment(s): 01/2019 cardiac cath tx medically, PCI with stents in 2012 and 2015, kidney transplant November 2010, patient has an AV fistula in the left upper extremity, colonoscopy, skin cancer removal , bilateral eye retinal bleeds with surgery, teeth extractions. Past Anesthesia/Blood Transfusion Reactions: No Reported Reaction Date of Last Stent Placement:: 09/2015 Past Psychological History: Depression Smoking Status: Never smoker Past Alcohol Use History: None Reported Past Drug Use History: None Reported - Past Family History Brother(s) Additional Family Medical History / Comment(s): Brother had depression and comitted suicide. Father Family Medical History: Diabetes Mellitus Additional Family Medical History / Comment(s): Father lived into his 90s. Mother Family Medical History: Myocardial Infarction (CT) Additional Family Medical History / Comment(s): Mother of a CT at the age of 57yrs. General Exam Limitations: no limitations General appearance: alert, in no apparent distress Head exam: Present: atraumatic Eye exam: Present: normal appearance ENT exam: Present: normal oropharynx Neck exam: Present: normal inspection Respiratory exam: Present: normal lung sounds bilaterally Cardiovascular Exam: Present: regular rate, normal rhythm GI/Abdominal exam: Present: soft, normal bowel sounds. Absent: distended, tenderness, guarding, rebound, rigid, pulsatile mass Extremities exam: Present: normal inspection. Absent: calf tenderness Neurological exam: Present: alert Psychiatric exam: Present: normal affect, normal mood Skin exam: Present: normal color Course Vital Signs 06/15/20 06/15/20 11:46 12:28 Temperature 98.0 F Pulse Rate 89 87 Respiratory 18 18 Rate Blood Pressure 213/102 223/107 O2 Sat by Pulse 99 98 Oximetry EKG Findings - EKG Comments: EKG Findings:: Normal sinus rhythm with rate of 89. OR 128. QRS 102. QT 374. QTC 455. Left axis. Normal QRS. Prominent T waves. Medical Decision Making - Medical Decision Making Case discussed with Dr. Whitlock, who will admit for this. Patient. Family updated. - Lab Data Result diagrams: 06/15/20 12:04 06/15/20 12:04 Lab Results 06/15/20 06/15/20 06/15/20 Range/Units 12:04 12:04 12:04 WBC 7.5 (3.8-10.6) k/uL RBC 4.13 L (4.30-5.90) m/uL Hgb 12.3 L (13.0-17.5) gm/dL Hct 37.2 L (39.0-53.0) % MCV 90.0 (80.0-100.0) fL MCH 29.8 (25.0-35.0) pg MCHC 33.1 (31.0-37.0) g/dL RDW 14.1 (11.5-15.5) % Plt Count 173 (150-450) k/uL MPV 8.4 Neutrophils % 79 % Lymphocytes % 12 % Monocytes % 7 % Eosinophils % 1 % Basophils % 0 % Neutrophils # 5.9 (1.3-7.7) k/uL Lymphocytes # 0.9 L (1.0-4.8) k/uL Monocytes # 0.5 (0-1.0) k/uL Eosinophils # 0.1 (0-0.7) k/uL Basophils # 0.0 (0-0.2) k/uL PT (9.0-12.0) sec INR (<1.2) APTT (22.0-30.0) sec Sodium 138 (137-145) mmol/L Potassium 4.5 (3.5-5.1) mmol/L Chloride 104 (98-107) mmol/L Carbon Dioxide 29 (22-30) mmol/L Anion Gap 5 mmol/L BUN 40 H (9-20) mg/dL Creatinine 2.95 H (0.66-1.25) mg/dL Est GFR (CKD-EPI)AfAm 25 (>60 ml/min/1.73 sqM) Est GFR (CKD-EPI)NonAf 21 (>60 ml/min/1.73 sqM) Glucose 233 H (74-99) mg/dL Plasma Lactic Acid Raymond 0.8 (0.7-2.0) mmol/L Calcium 8.2 L (8.4-10.2) mg/dL Magnesium (1.6-2.3) mg/dL Total Bilirubin 0.6 (0.2-1.3) mg/dL AST 26 (17-59) U/L ALT 15 (4-49) U/L Alkaline Phosphatase 107 (38-126) U/L Troponin I (0.000-0.034) ng/mL Total Protein 5.5 L (6.3-8.2) g/dL Albumin 3.2 L (3.5-5.0) g/dL Amylase 37 (30-110) U/L Lipase 17 L (23-300) U/L 06/15/20 06/15/20 06/15/20 Range/Units 12:04 12:09 12:09 WBC (3.8-10.6) k/uL RBC (4.30-5.90) m/uL Hgb (13.0-17.5) gm/dL Hct (39.0-53.0) % MCV (80.0-100.0) fL MCH (25.0-35.0) pg MCHC (31.0-37.0) g/dL RDW (11.5-15.5) % Plt Count (150-450) k/uL MPV Neutrophils % % Lymphocytes % % Monocytes % % Eosinophils % % Basophils % % Neutrophils # (1.3-7.7) k/uL Lymphocytes # (1.0-4.8) k/uL Monocytes # (0-1.0) k/uL Eosinophils # (0-0.7) k/uL Basophils # (0-0.2) k/uL PT 10.0 (9.0-12.0) sec INR 0.9 (<1.2) APTT 23.9 (22.0-30.0) sec Sodium (137-145) mmol/L Potassium (3.5-5.1) mmol/L Chloride (98-107) mmol/L Carbon Dioxide (22-30) mmol/L Anion Gap mmol/L BUN (9-20) mg/dL Creatinine (0.66-1.25) mg/dL Est GFR (CKD-EPI)AfAm (>60 ml/min/1.73 sqM) Est GFR (CKD-EPI)NonAf (>60 ml/min/1.73 sqM) Glucose (74-99) mg/dL Plasma Lactic Acid Raymond (0.7-2.0) mmol/L Calcium (8.4-10.2) mg/dL Magnesium 1.5 L (1.6-2.3) mg/dL Total Bilirubin (0.2-1.3) mg/dL AST (17-59) U/L ALT (4-49) U/L Alkaline Phosphatase (38-126) U/L Troponin I 0.061 H* (0.000-0.034) ng/mL Total Protein (6.3-8.2) g/dL Albumin (3.5-5.0) g/dL Amylase (30-110) U/L Lipase (23-300) U/L - Radiology Data Radiology results: image reviewed (Abdominal x-ray reveals nonobstructive patter n) Disposition Clinical Impression: Vomiting, Renal insufficiency, Hypertensive urgency Disposition: ADMITTED IP TO THIS [facility] Is patient prescribed a controlled substance at d/c from ED?: No Referrals: [facility],Clinic [Primary Care Provider] - 1-2 days Decision Time: 13:54
[2020-06-15 12:32] LABS: Basophils % (A) 0 %; Eosinophils # (A) 0.1 k/uL (0-0.7); Eosinophils % (A) 1 %; HCT 37.2 % (39.0-53.0); HGB 12.3 gm/dL (13.0-17.5); Lymphocytes # (A) 0.9 k/uL (1.0-4.8); Lymphocytes % (A) 12 %; MCH 29.8 pg (25.0-35.0); MCHC 33.1 g/dL (31.0-37.0); Mean Platelet Volume 8.4; Monocytes # (A) 0.5 k/uL (0-1.0); Monocytes % (A) 7 %; Neutrophils # (A) 5.9 k/uL (1.3-7.7); Neutrophils % (A) 79 %; Platelet Count 173 k/uL (150-450); RBC 4.13 m/uL (4.30-5.90); RDW 14.1 % (11.5-15.5); WBC 7.5 k/uL (3.8-10.6)
[2020-06-15 12:34] LABS: Albumin 3.2 g/dL (3.5-5.0); Calcium 8.2 mg/dL (8.4-10.2); Potassium 4.5 mmol/L (3.5-5.1); Total Bilirubin 0.6 mg/dL (0.2-1.3); Total Protein 5.5 g/dL (6.3-8.2)
[2020-06-15 12:38] LABS: INR 0.9 (<1.2); Partial Thromboplastin Time 23.9 sec (22.0-30.0)
[2020-06-15] MEDS ORDERED: LABETALOL 5 MG/ML VIAL MDV IVP STA (12:59)
[2020-06-15 13:30] LABS: Magnesium 1.5 mg/dL (1.6-2.3)
[2020-06-15] MEDS ORDERED: NALOXONE 0.4 MG/ML 1 ML VIAL IV PRN (14:02)
[2020-06-15] MEDS ORDERED: ASPIRIN 81 MG PO STA (14:06)
[2020-06-15 14:38] LABS: Appearance,Urine Clear (Clear); Bilirubin,Urine Negative (Negative); Blood,Urine Small (Negative); Color,Urine Light Yellow; Glucose,Urine (UA) 3+ (Negative); Ketones,Urine Negative (Negative); Leukocyte Esterase,Urine Small (Negative); Nitrite,Urine Negative (Negative); PH, Urine 7.5 (5.0-8.0); Protein,Urine 3+ (Negative); RBC,Urine 1 /hpf (0-5); Specific Gravity,Urine 1.012 (1.001-1.035); Squamous Epithelial Cell,Urine <1 /hpf (0-4); Urobilinogen,Urine <2.0 mg/dL (<2.0); WBC,Urine 29 /hpf (0-5)
[2020-06-15] MEDS: hydrALAZINE HCL 20 MG/ML 1 ML VIAL IVP PRN ×2 (16:27→21:05)
[2020-06-15] MEDS: SODIUM CHLORIDE 0.9% 1,000 ML IV SCH (16:33)
[2020-06-15] MEDS: ONDANSETRON 4 MG/2 ML VIAL IVP PRN (19:49)
[2020-06-15] MEDS: carvediloL 6.25 MG TAB PO SCH (20:34)
--- NOTE | 2020-06-16 00:11 | P.HPIM ---
History of Present Illness This is a pleasant 65 years old male with multiple medical problems i. 2 months ago he was in the hospital for hypertensive encephalopathy ncluding stage IV CKD, dementia, CVA/TIA, diabetes mellitus, GERD, GI bleed, hyperlipidemia, hypertension Presents because of nausea vomiting and diarrhea for 2 days. he has been vomiting frequently every two hours at times, now he has more nausea, diarrhea developed this morning , he vomits every things puts in his mouth he has very mild abdominal pain and tenderness around umbilacus he denies chest pain or dyspnea or coughing Last time he was in the hospital he was discharged on hydralazine 50 mg 3 times a day Evelyn Coreg 6.25 mg, Norvasc 10 mg. Also he had Levemir 10 units daily and 6 units at bedtime On admission he is hypertensive 212/102 because he wasn't able to take his blood pressure medication. unremarkable cbc, inr however creatinine is 2.95 which is slightly elevated above baseline. magnesium is 1.5 on the low side, liver enzymes elevated, troponin 0.06 KUB showing nonobstructive bowel gas pattern EKG showing normal sinus rhythm at [address]-T changes. As per previous note patient has DO NOT RESUSCITATE order In the emergency room patient was started on Pepcid 20 mg IV once, labetalol 20 mg IV once, Reglan 10 mg once and 500 mL of normal saline Review of Systems CONSTITUTIONAL: No fever, no malaise, no fatigue. HEENT: No recent visual problems or hearing problems. Denied any sore throat. CARDIOVASCULAR: No orthopnea, PND, no palpitations, no syncope. PULMONARY: No shortness of breath, no cough, no hemoptysis. GASTROINTESTINAL: No abdominal distention. Normoactive bowel sounds. NEUROLOGICAL: No headaches, no weakness, no numbness. HEMATOLOGICAL: Denies any bleeding or petechiae. GENITOURINARY: Denies any burning micturition, frequency, or urgency. MUSCULOSKELETAL/RHEUMATOLOGICAL: Denies any joint pain, swelling, or any muscle pain. ENDOCRINE: Denies any polyuria or polydipsia. Past Medical History Past Medical History: Coronary Artery Disease (CAD), Cancer, Chest Pain / Angina, CVA/TIA, Dementia, Diabetes Mellitus, Dialysis, Eye Disorder, GERD/R eflux, GI Bleed, Hyperlipidemia, Hypertension, Myocardial Infarction (ME), Pneumonia, Renal Disease, Thyroid Disorder Additional Past Medical History / Comment(s): acute renal failure, covid 19, mild hyponatremia, asymptomatic bacturia. Other hx: IDDM type II, neuropathy bilateral legs/feet, retinopathy bilaterally and is nearly blind, gastroparesis, ESRD with past hemo/peritoneal dialysis and in 2010 received kidney transplant, CKD stageIV-pt states it has been recommended he has hemodialysis but he is not willing to do so, recurrent UTIs, UTI with sepsis, incomplete bladder emptying/self cathed on occasion in the past, incontinent of urine at times, TIAs, 2013 fall with multiple fractured ribs, vascular dementia, skin cancer with removal, upper GI bleed, hypomagnesemia Last Myocardial Infarction Date:: 01/2019 History of Any Multi-Drug Resistant Organisms: None Reported Date of last positivie culture/infection: "years ago" MDRO Source:: stool Past Surgical History: Heart Catheterization, Heart Catheterization With Stent Additional Past Surgical History / Comment(s): 01/2019 cardiac cath tx medically, PCI with stents in 2012 and 2015, kidney transplant November 2010, patient has an AV fistula in the left upper extremity, colonoscopy, skin cancer removal , bilateral eye retinal bleeds with surgery, teeth extractions. Past Anesthesia/Blood Transfusion Reactions: No Reported Reaction Date of Last Stent Placement:: 09/2015 Past Psychological History: Depression Smoking Status: Never smoker Past Alcohol Use History: None Reported Past Drug Use History: None Reported - Past Family History Brother(s) Additional Family Medical History / Comment(s): Brother had depression and comitted suicide. Father Family Medical History: Diabetes Mellitus Additional Family Medical History / Comment(s): Father lived into his 90s. Mother Family Medical History: Myocardial Infarction (ME) Additional Family Medical History / Comment(s): Mother of a ME at the age of 57yrs. Medications and Allergies Home Medications Medication Instructions Recorded Confirmed Type Levothyroxine Sodium [Synthroid] 50 mcg PO DAILY@0600 03/13/17 06/15/20 History Mycophenolate Sodium [Mycophenolic 720 mg PO BID@0800,1700 03/13/17 06/15/20 History Acid] Pantoprazole Sodium [Protonix] 40 mg PO BID@0800,1700 08/12/19 06/15/20 History Sertraline HCl [Zoloft] 100 mg PO HS@2100 08/12/19 06/15/20 History Tacrolimus [Prograf] 1 mg PO BID@0800,1700 10/31/19 06/15/20 History Insulin Detemir (Levemir) [Levemir] 14 unit SQ HS 12/31/19 06/15/20 History Metoclopramide [Reglan] 5 mg PO BID@0800,1700 01/23/20 06/15/20 History Atorvastatin [Lipitor] 80 mg PO HS@2100 01/28/20 06/15/20 History Clopidogrel [Plavix] 75 mg PO DAILY@0800 01/28/20 06/15/20 History INSULIN ASPART (NovoLOG) [NovoLOG See Protocol SQ ACHS 01/28/20 06/15/20 History (formulary)] Cholecalciferol [Vitamin D3 (25 50 mcg PO DAILY 03/24/20 06/15/20 History Mcg = 1000 Iu)] Insulin Detemir (Levemir) [Levemir] 6 unit SQ QAM 03/24/20 06/15/20 History Ondansetron Odt [Zofran ODT] 4 mg PO Q8H PRN 03/24/20 06/15/20 History hydrALAZINE HCL [Apresoline] 50 mg PO TID@0800,1200,1700 30 03/26/20 06/15/20 Rx Days #90 tab Aspirin EC [Ecotrin Low Dose] 81 mg PO DAILY 06/15/20 06/15/20 History Magnesium Oxide [Mag-Ox] 400 mg PO DAILY 06/15/20 06/15/20 History Sodium Bicarbonate Tab 650 mg PO BID 06/15/20 06/15/20 History Allergies Allergy/AdvReac Type Severity Reaction Status Date / Time No Known Allergies Allergy Verified 06/15/20 14:18 Physical Exam Vitals: Vital Signs Temp Pulse Resp BP Pulse Ox 06/15/20 12:28 87 18 223/107 98 06/15/20 11:46 98.0 F 89 18 213/102 99 Intake and Output 06/14/20 06/15/20 06/15/20 22:59 06:59 14:59 Other: Weight 63.957 kg GENERAL: The patient is alert and oriented x3, not in any acute distress. Well developed, well nourished. HEENT: Pupils are round and equally reacting to light. EOMI. No scleral icterus. No conjunctival pallor. Normocephalic, atraumatic. No pharyngeal erythema. No thyromegaly. CARDIOVASCULAR: S1 and S2 present. No murmurs, rubs, or gallops. PULMONARY: Chest is clear to auscultation, no wheezing or crackles. -ABDOMEN: Soft, nontender, very mild nonspecific tenderness around the umbilicus, normoactive bowel sounds. No palpable organomegaly. MUSCULOSKELETAL: No joint swelling or deformity. EXTREMITIES: No cyanosis, clubbing, or pedal edema. NEUROLOGICAL: Gross neurological examination did not reveal any focal deficits. SKIN: No rashes. No petechiae Results CBC & Chem 7: 06/15/20 12:04 06/15/20 12:04 Labs: Abnormal Lab Results - Last 24 Hours (Table) 06/15/20 06/15/20 06/15/20 Range/Units 12:04 12:04 12:04 RBC 4.13 L (4.30-5.90) m/uL Hgb 12.3 L (13.0-17.5) gm/dL Hct 37.2 L (39.0-53.0) % Lymphocytes # 0.9 L (1.0-4.8) k/uL BUN 40 H (9-20) mg/dL Creatinine 2.95 H (0.66-1.25) mg/dL Glucose 233 H (74-99) mg/dL Calcium 8.2 L (8.4-10.2) mg/dL Magnesium 1.5 L (1.6-2.3) mg/dL Troponin I (0.000-0.034) ng/mL Total Protein 5.5 L (6.3-8.2) g/dL Albumin 3.2 L (3.5-5.0) g/dL Lipase 17 L (23-300) U/L 06/15/20 Range/Units 12:09 RBC (4.30-5.90) m/uL Hgb (13.0-17.5) gm/dL Hct (39.0-53.0) % Lymphocytes # (1.0-4.8) k/uL BUN (9-20) mg/dL Creatinine (0.66-1.25) mg/dL Glucose (74-99) mg/dL Calcium (8.4-10.2) mg/dL Magnesium (1.6-2.3) mg/dL Troponin I 0.061 H* (0.000-0.034) ng/mL Total Protein (6.3-8.2) g/dL Albumin (3.5-5.0) g/dL Lipase (23-300) U/L Assessment and Plan Assessment: Clinical picture of acute gastroenteritis Hypertension with urgency due to nonadherence to medication and due to his illness Elevated troponin, Patient has chronically elevated troponin, mostly secondary to his renal disease stage IV CKD, secondary to diabetic nephropathy. Baseline creatinine is 2-2.5 Hyperlipidemia Diabetes mellitus Dementia History of CVA/TIA History of coronary artery disease, status post stent placement Hypothyroidism Retinopathy with near blindness Previous history of end-stage renal disease status post analysis in 2012 receive d kidney transplant. Plan: This is a pleasant 65 years old male who presents with hypertensive urgency with nausea vomiting and diarrhea. Elevated troponin. Continue gentle hydration, cardiology consult. 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 Continue same treatment. Continue with symptomatic treatment. Resume home medication. Monitor lytes and vitals. DVT and GI prophylaxis. Further recommendations depends on the clinical course of the patient DVT prophylaxis: Subcutaneous heparin GI Prophylaxis: Pepcid PT/OT: Pending Prognosis is guarded
[2020-06-16 00:59] LABS: Glucose,Whole Blood 461 mg/dL (75-99)
[2020-06-16] MEDS ORDERED: INSULIN ASPART (NovoLOG) 100 UNIT/ML VIAL SQ ONE (01:10)
[2020-06-16] MEDS: INSULIN ASPART (NovoLOG) 100 UNIT/ML VIAL SQ SCH ×5 (01:24→21:21)
[2020-06-16] MEDS: SODIUM CHLORIDE 0.9% 1,000 ML IV SCH ×3 (01:29→15:48)
[2020-06-16] MEDS: ONDANSETRON 4 MG/2 ML VIAL IVP PRN (05:09)
[2020-06-16 06:31] LABS: Glucose,Whole Blood 229 mg/dL (75-99)
[2020-06-16] MEDS: LEVOTHYROXINE 50 MCG TAB PO SCH (06:38)
[2020-06-16] MEDS: carvediloL 6.25 MG TAB PO SCH ×2 (06:38→17:18)
[2020-06-16 07:59] LABS: Basophils % (A) 0 %; Eosinophils # (A) 0.1 k/uL (0-0.7); Eosinophils % (A) 1 %; HCT 32.1 % (39.0-53.0); HGB 10.7 gm/dL (13.0-17.5); Lymphocytes # (A) 0.9 k/uL (1.0-4.8); Lymphocytes % (A) 12 %; MCH 29.9 pg (25.0-35.0); MCHC 33.3 g/dL (31.0-37.0); MCV 89.8 fL (80.0-100.0); Mean Platelet Volume 8.1; Monocytes # (A) 0.4 k/uL (0-1.0); Monocytes % (A) 6 %; Neutrophils # (A) 5.8 k/uL (1.3-7.7); Neutrophils % (A) 79 %; Platelet Count 169 k/uL (150-450); RBC 3.57 m/uL (4.30-5.90); RDW 14.3 % (11.5-15.5); WBC 7.4 k/uL (3.8-10.6)
[2020-06-16] MEDS: amLODIPine 10 MG TAB PO SCH (08:23)
[2020-06-16] MEDS: MAGNESIUM OXIDE 400 MG TAB PO SCH (08:23)
[2020-06-16] MEDS: CLOPIDOGREL 75 MG TAB PO SCH (08:23)
[2020-06-16] MEDS: hydrALAZINE HCL 50 MG TAB PO SCH ×3 (08:23→17:18)
[2020-06-16] MEDS: SODIUM BICARBONATE TAB 650 MG TAB PO SCH ×2 (08:23→21:21)
[2020-06-16] MEDS: METOCLOPRAMIDE 5 MG TAB PO SCH ×2 (08:23→17:18)
[2020-06-16] MEDS: CHOLECALCIFEROL 25 MCG (1000 IU) TABLET PO SCH (08:23)
[2020-06-16 08:26] LABS: Calcium 7.7 mg/dL (8.4-10.2); Magnesium 1.4 mg/dL (1.6-2.3); Potassium 3.9 mmol/L (3.5-5.1)
[2020-06-16] MEDS ORDERED: PANTOPRAZOLE 40 MG/10 ML VIAL IV SCH (09:00)
--- NOTE | 2020-06-16 11:22 | P.NPCON ---
History of Present Illness - Reason for Consult acute renal failure, chronic renal failure - History of Present Illness Reason for consultation: Chronic kidney disease and renal transplant management History of present illness: Patient is a seen in renal consultation for chronic kidney disease and renal t ransplant management. Patient has chronic kidney disease stage IV secondary to diabetic kidney disease and long-term calcineurin inhibitor use. Baseline creatinine is in the range of 2-2.5. Creatinine was 2.9 for this admission and is 2.77 today. Patient presented to the hospital with nausea and vomiting as well as diarrhea which started about 2-3 days ago. He is currently receiving IV fluids. He tested negative for coronavirus. Last vomited yesterday evening. No chest pain or shortness of breath. No edema. No fever or chills. Denies use of nonsteroidals. Blood pressure was over systolic 200 on admission and was 157/87 as of yesterday evening and 158/81 this morning. Blood sugars are stable in the 200s. Magnesium level is a little on the lower side. Vital signs are stable. General: The patient appeared well nourished and normally developed. HEENT: Head exam is unremarkable. Neck is without jugular venous distension. LUNGS: Breath sounds decreased. HEART: Rate and Rhythm are regular. ABDOMEN: Soft, nontender. EXTREMITITES: No edema. Past Medical History Past Medical History: Coronary Artery Disease (CAD), Cancer, Chest Pain / A ngina, CVA/TIA, Dementia, Diabetes Mellitus, Dialysis, Eye Disorder, GERD/Reflux, GI Bleed, Hyperlipidemia, Hypertension, Myocardial Infarction (ME), Pneumonia, Renal Disease, Thyroid Disorder Additional Past Medical History / Comment(s): acute renal failure, covid 19, mild hyponatremia, asymptomatic bacturia. Other hx: IDDM type II, neuropathy bilateral legs/feet, retinopathy bilaterally and is nearly blind, gastroparesis, ESRD with past hemo/peritoneal dialysis and in 2010 received kidney transplant, CKD stageIV-pt states it has been recommended he has hemodialysis but he is not willing to do so, recurrent UTIs, UTI with sepsis, incomplete bladder emptying/self cathed on occasion in the past, incontinent of urine at times, TIAs, 2014 fall with multiple fractured ribs, vascular dementia, skin cancer with removal, upper GI bleed, hypomagnesemia Last Myocardial Infarction Date:: 01/2019 History of Any Multi-Drug Resistant Organisms: None Reported Date of last positivie culture/infection: "years ago" MDRO Source:: stool Past Surgical History: Heart Catheterization, Heart Catheterization With Stent Additional Past Surgical History / Comment(s): 01/2019 cardiac cath tx medically, PCI with stents in 2012 and 2015, kidney transplant November 2010, patient has an AV fistula in the left upper extremity, colonoscopy, skin cancer removal , bilateral eye retinal bleeds with surgery, teeth extractions. Past Anesthesia/Blood Transfusion Reactions: No Reported Reaction Date of Last Stent Placement:: 09/2015 Past Psychological History: Depression Smoking Status: Never smoker Past Alcohol Use History: None Reported Past Drug Use History: None Reported - Past Family History Brother(s) Additional Family Medical History / Comment(s): Brother had depression and comitted suicide. Father Family Medical History: Diabetes Mellitus Additional Family Medical History / Comment(s): Father lived into his 90s. Mother Family Medical History: Myocardial Infarction (ME) Additional Family Medical History / Comment(s): Mother of a ME at the age of 57yrs. Medications and Allergies Home Medications Medication Instructions Recorded Confirmed Type Levothyroxine Sodium [Synthroid] 50 mcg PO DAILY@0600 03/13/17 06/15/20 History Mycophenolate Sodium [Mycophenolic 720 mg PO BID@0800,1700 03/13/17 06/15/20 History Acid] Pantoprazole Sodium [Protonix] 40 mg PO BID@0800,1700 08/12/19 06/15/20 History Sertraline HCl [Zoloft] 100 mg PO HS@2100 08/12/19 06/15/20 History Tacrolimus [Prograf] 1 mg PO BID@0800,1700 10/31/19 06/15/20 History Insulin Detemir (Levemir) [Levemir] 14 unit SQ 12/31/19 06/15/20 History Metoclopramide [Reglan] 5 mg PO BID@0800,1700 01/23/20 06/15/20 History Atorvastatin [Lipitor] 80 mg PO HS@2100 01/28/20 06/15/20 History Clopidogrel [Plavix] 75 mg PO DAILY@0800 01/28/20 06/15/20 History INSULIN ASPART (NovoLOG) [NovoLOG See Protocol SQ [facility] 01/28/20 06/15/20 History (formulary)] Cholecalciferol [Vitamin D3 (25 50 mcg PO DAILY 03/24/20 06/15/20 History Mcg = 1000 Iu)] Insulin Detemir (Levemir) [Levemir] 6 unit SQ QAM 03/24/20 06/15/20 History Ondansetron Odt [Zofran ODT] 4 mg PO Q8H PRN 03/24/20 06/15/20 History hydrALAZINE HCL [Apresoline] 50 mg PO TID@0800,1200,1700 30 03/26/20 06/15/20 Rx Days #90 tab Aspirin EC [Ecotrin Low Dose] 81 mg PO DAILY 06/15/20 06/15/20 History Magnesium Oxide [Mag-Ox] 400 mg PO DAILY 06/15/20 06/15/20 History Sodium Bicarbonate Tab 650 mg PO BID 06/15/20 06/15/20 History Allergies Allergy/AdvReac Type Severity Reaction Status Date / Time No Known Allergies Allergy Verified 06/15/20 14:18 Physical Exam Vitals: Vital Signs Temp Pulse Pulse Resp BP BP Pulse Ox 06/16/20 08:00 97.7 F 75 16 158/81 99 06/16/20 04:00 101 H 18 155/81 97 06/15/20 23:30 97.8 F 97 18 168/82 96 06/15/20 22:59 99 18 157/87 99 06/15/20 21:00 181/92 06/15/20 20:24 97.8 F 99 16 185/94 98 06/15/20 16:22 94 18 203/97 98 06/15/20 14:11 191/101 06/15/20 12:28 87 18 223/107 98 06/15/20 11:46 98.0 F 89 18 213/102 99 Intake and Output 06/15/20 06/16/20 06/16/20 22:59 06:59 14:59 Intake Total 0 Output Total 700 150 Balance -700 -150 0 Intake: Oral 0 Output: Urine 700 150 Other: Voiding Method Self-Catheterization Self-Catheterization # Voids 1 Weight 63.957 kg 66.2 kg Results - Lab Results Most recent lab results Calcium 7.7 mg/dL (8.4-10.2) L 06/16/20 07:26 Magnesium 1.4 mg/dL (1.6-2.3) L 06/16/20 07:26 06/16/20 07:26 06/16/20 07:26 Assessment and Plan Plan: Assessment: 1. Status post donor renal allograft from November 2010. 2. Chronic kidney disease stage IV with baseline creatinine in the range of 2- 2.5. Etiology is diabetic kidney disease and long-term CNI use. 3. Hypertensive urgency. Better. 4. Nausea vomiting and diarrhea. Possibly gastroenteritis. Better. 5. Diabetes mellitus. 6. Hypomagnesemia from poor intake and GI losses. Plan: Maintain normal saline. Decrease rate to 75 mL an hour. Check morning Prograf level. Maintain Prograf and Myfortic. Replace magnesium. Continue to monitor renal function and urine output. Thank you for the consultation. I will continue to follow patient with you during his hospital stay.
[2020-06-16 11:54] LABS: Glucose,Whole Blood 151 mg/dL (75-99)
[2020-06-16] MEDS: TACROLIMUS 1 MG CAP PO SCH ×2 (12:53→18:17)
[2020-06-16] MEDS: MYCOPHENOLATE SODIUM DR 180 MG TABLET.DR PO SCH ×2 (12:53→18:17)
[2020-06-16] MEDS: MAGNESIUM SULFATE-D5W PMX 1 GM in DEXTROSE/WATER 1 100ML.BAG IVPB SCH ×2 (12:54→15:15)
[2020-06-16] MEDS ORDERED: Magnesium Replacement Protocol 1 EACH MISC MISCELLANE PRN (14:24)
--- NOTE | 2020-06-16 16:24 | P.CRDCN ---
History of Present Illness History of present illness: HISTORY OF PRESENTING ILLNESS This is a pleasant 65-year-old male past medical history significant for coronary artery disease s/p PCI RCA and proximal OM1 in 2016, chronic kidney disease status post renal transplant, type 2 diabetes mellitus, hypertension Patient follows with Dr. De Leon (last seen 02/2019). We are being consulted for elevated troponin. Patient presents to emergency department with complaints of nausea vomiting and diarrhea for 2 days. Also has abdominal pain and tenderness. On admission he is hypertensive 245/224 because he wasn't able to take his blood pressure medication. No chest pain, shortness, palpitations, lightheadedness, dizziness, syncope. Laboratory data reviewed, sodium 137, potassium 3.9, serum creatinine 2.77, BUN 39, magnesium 1.4, tropon in.06-->0.05-->0.05 Vital signs blood pressure 158/81, heart rate 75, afebrile, maintaining oxygen saturation is 99% on room air DIAGNOSTICS EKG reveals sinus rhythm, heart rate 89, left axis deviation, T wave inversion in lateral leads. Seen on prior EKG KUB reveals overall nonobstructive bowel gas pattern, extensive vascular calcification including central vascular calcifications and both kidneys are demonstrated Current cardiac medications include carvedilol 6.25 mg twice a day, atorvastatin 80 mg nightly, amlodipine 10 mg daily, Plavix 75 mg daily, hydralazine 50 mg 3 times a day, REVIEW OF SYSTEMS At the time of my exam: CONSTITUTIONAL: Denies fever or chills. CARDIOVASCULAR: Denies chest pain, shortness of breath, orthopnea, PND or palpitations. RESPIRATORY: Denies cough. GASTROINTESTINAL: + abdominal pain, +diarrhea, +nausea or +vomiting. MUSCULOSKELETAL: Denies myalgias. NEUROLOGIC: Denies numbness, tingling, headacbe or weakness. ENDOCRINE: Denies fatigue, weight change, polydipsia or polyurina. GENITOURINARY: Denies burning, hematuria or urgency with micturation. HEMATOLOGIC: Denies history of anemia or bleeding. PHYSICAL EXAMINATION CONSTITUTIONAL: No apparent distress. Patient is nausea and vomiting clear/yellow liquid HEENT: Head is normocephalic. Pupils are equal, round. Sclerae anicteric. Mucous membranes of the mouth are moist. No JVD. No carotid bruit. CHEST EXAMINATION: Lungs are clear to auscultation. No chest wall tenderness is noted on palpation or with deep breathing. HEART EXAMINATION: Regular rate and rhythm. S1, S2 heard. No murmurs, gallops or rub. ABDOMEN: Soft, nontender. Positive bowel sounds. EXTREMITIES: 2+ peripheral pulses, no lower extremity edema and no calf tenderness. NEUROLOGIC EXAMINATION: Patient is awake, alert and oriented x3. ASSESSMENT Hypertensive Urgency, patient not taking home PO medications due to nause and vomiting, home medications restarted. BP has improved Elevated troponin most likely related to hypertensive urgency History of Coronary artery disease s/p PCI Chronic Kidney Disease s/p renal transplant in 2010 Type 2 Diabetes Hypertension PLAN Will Obtain 2D echo, if no acute findings, no further workup from cardiology standpoint. Patient's BP is better with restart of home medications Nephrology is following, appreciate recs Nurse Practitioner note has been reviewed, I agree with a documented findings and plan of care. Patient was seen and examined. Past Medical History Past Medical History: Coronary Artery Disease (CAD), Cancer, Chest Pain / Angina, CVA/TIA, Dementia, Diabetes Mellitus, Dialysis, Eye Disorder, GERD/Reflux, GI Bleed, Hyperlipidemia, Hypertension, Myocardial Infarction ([place]), Pneumonia, Renal Disease, Thyroid Disorder Additional Past Medical History / Comment(s): acute renal failure, covid 19, mil d hyponatremia, asymptomatic bacturia. Other hx: IDDM type II, neuropathy bilateral legs/feet, retinopathy bilaterally and is nearly blind, gastroparesis, ESRD with past hemo/peritoneal dialysis and in 2010 received kidney transplant, CKD stageIV-pt states it has been recommended he has hemodialysis but he is not willing to do so, recurrent UTIs, UTI with sepsis, incomplete bladder emptying/self cathed on occasion in the past, incontinent of urine at times, TIAs, 2013 fall with multiple fractured ribs, vascular dementia, skin cancer with removal, upper GI bleed, hypomagnesemia Last Myocardial Infarction Date:: 01/2019 History of Any Multi-Drug Resistant Organisms: None Reported Date of last positivie culture/infection: "years ago" MDRO Source:: stool Past Surgical History: Heart Catheterization, Heart Catheterization With Stent Additional Past Surgical History / Comment(s): 01/2019 cardiac cath tx medically, PCI with stents in 2012 and 2015, kidney transplant November 2010, patient has an AV fistula in the left upper extremity, colonoscopy, skin cancer removal , bilateral eye retinal bleeds with surgery, teeth extractions. Past Anesthesia/Blood Transfusion Reactions: No Reported Reaction Date of Last Stent Placement:: 09/2015 Past Psychological History: Depression Smoking Status: Never smoker Past Alcohol Use History: None Reported Past Drug Use History: None Reported - Past Family History Brother(s) Additional Family Medical History / Comment(s): Brother had depression and comitted suicide. Father Family Medical History: Diabetes Mellitus Additional Family Medical History / Comment(s): Father lived into his 90s. Mother Family Medical History: Myocardial Infarction (NV) Additional Family Medical History / Comment(s): Mother of a NV at the age of 57yrs. Medications and Allergies Home Medications Medication Instructions Recorded Confirmed Type Levothyroxine Sodium [Synthroid] 50 mcg PO DAILY@0600 03/13/17 06/15/20 History Mycophenolate Sodium [Mycophenolic 720 mg PO BID@0800,1700 03/13/17 06/15/20 History Acid] Pantoprazole Sodium [Protonix] 40 mg PO BID@0800,1700 08/12/19 06/15/20 History Sertraline HCl [Zoloft] 100 mg PO HS@2100 08/12/19 06/15/20 History Tacrolimus [Prograf] 1 mg PO BID@0800,1700 10/31/19 06/15/20 History Insulin Detemir (Levemir) [Levemir] 14 unit SQ HS 12/31/19 06/15/20 History Metoclopramide [Reglan] 5 mg PO BID@0800,1700 01/23/20 06/15/20 History Atorvastatin [Lipitor] 80 mg PO HS@2100 01/28/20 06/15/20 History Clopidogrel [Plavix] 75 mg PO DAILY@0800 01/28/20 06/15/20 History INSULIN ASPART (NovoLOG) [NovoLOG See Protocol SQ [facility] 01/28/20 06/15/20 History (formulary)] Cholecalciferol [Vitamin D3 (25 50 mcg PO DAILY 03/24/20 06/15/20 History Mcg = 1000 Iu)] Insulin Detemir (Levemir) [Levemir] 6 unit SQ QAM 03/24/20 06/15/20 History Ondansetron Odt [Zofran ODT] 4 mg PO Q8H PRN 03/24/20 06/15/20 History hydrALAZINE HCL [Apresoline] 50 mg PO TID@0800,1200,1700 30 03/26/20 06/15/20 Rx Days #90 tab Aspirin EC [Ecotrin Low Dose] 81 mg PO DAILY 06/15/20 06/15/20 History Magnesium Oxide [Mag-Ox] 400 mg PO DAILY 06/15/20 06/15/20 History Sodium Bicarbonate Tab 650 mg PO BID 06/15/20 06/15/20 History Allergies Allergy/AdvReac Type Severity Reaction Status Date / Time No Known Allergies Allergy Verified 06/15/20 14:18 Physical Exam Vitals: Vital Signs Temp Pulse Pulse Resp BP BP Pulse Ox 06/16/20 04:00 101 H 18 155/81 97 06/15/20 23:30 97.8 F 97 18 168/82 96 06/15/20 22:59 99 18 157/87 99 06/15/20 21:00 181/92 06/15/20 20:24 97.8 F 99 16 185/94 98 06/15/20 16:22 94 18 203/97 98 06/15/20 14:11 191/101 06/15/20 12:28 87 18 223/107 98 06/15/20 11:46 98.0 F 89 18 213/102 99 Intake and Output 06/15/20 06/16/20 06/16/20 22:59 06:59 14:59 Output Total 700 150 Balance -700 -150 Output: Urine 700 150 Other: Voiding Method Self-Catheterization # Voids 1 Weight 63.957 kg 66.2 kg Results 06/16/20 07:26 06/16/20 07:26 Cardiac Enzymes 06/15/20 06/15/20 06/15/20 Range/Units 12:04 12:09 15:34 AST 26 (17-59) U/L Troponin I 0.061 H* 0.056 H* (0.000-0.034) ng/mL 06/15/20 Range/Units 19:35 AST (17-59) U/L Troponin I 0.054 H* (0.000-0.034) ng/mL Coagulation 06/15/20 Range/Units 12:09 PT 10.0 (9.0-12.0) sec APTT 23.9 (22.0-30.0) sec CBC 06/15/20 Range/Units 12:04 WBC 7.5 (3.8-10.6) k/uL RBC 4.13 L (4.30-5.90) m/uL Hgb 12.3 L (13.0-17.5) gm/dL Hct 37.2 L (39.0-53.0) % Plt Count 173 (150-450) k/uL Comprehensive Metabolic Panel 06/15/20 Range/Units 12:04 Sodium 138 (137-145) mmol/L Potassium 4.5 (3.5-5.1) mmol/L Chloride 104 (98-107) mmol/L Carbon Dioxide 29 (22-30) mmol/L BUN 40 H (9-20) mg/dL Creatinine 2.95 H (0.66-1.25) mg/dL Glucose 233 H (74-99) mg/dL Calcium 8.2 L (8.4-10.2) mg/dL AST 26 (17-59) U/L ALT 15 (4-49) U/L Alkaline Phosphatase 107 (38-126) U/L Total Protein 5.5 L (6.3-8.2) g/dL Albumin 3.2 L (3.5-5.0) g/dL Current Medications Generic Name Dose Route Start Last Admin Trade Name Freq PRN Reason Stop Dose Admin Amlodipine Besylate 10 mg 06/16/20 09:00 Amlodipine 10 Mg Tab PO DAILY [facility] Atorvastatin Calcium 80 mg 06/16/20 21:00 Atorvastatin 80 Mg Tab PO HS@2100 [facility] Carvedilol 6.25 mg 06/15/20 17:30 06/16/20 06:38 Carvedilol 6.25 Mg Tab PO 6.25 mg BID-W/MEALS GOLDY Administration Cholecalciferol 50 mcg 06/16/20 09:00 Cholecalciferol 25 Mcg (1000 Iu) Tablet PO DAILY [facility] Clopidogrel Bisulfate 75 mg 06/16/20 08:00 Clopidogrel 75 Mg Tab PO DAILY@0800 [facility] Hydralazine HCl 10 mg 06/15/20 14:05 06/15/20 21:05 Hydralazine Hcl 20 Mg/Ml 1 Ml Vial IVP 10 mg Q4HR PRN Administration Blood Pressure - High Hydralazine HCl 50 mg 06/16/20 08:00 Hydralazine Hcl 50 Mg Tab PO TID@0800,1200,1700 [facility] Sodium Chloride 1,000 mls @ 125 mls/hr 06/15/20 14:15 06/16/20 06:39 Saline 0.9% IV 125 mls/hr .Q8H GOLDY Administration Insulin Aspart 0 unit 06/16/20 01:10 06/16/20 06:39 Insulin Aspart (Novolog) 100 Unit/Ml Vial SQ 3 unit ACHS [facility] Administration Protocol Levothyroxine Sodium 50 mcg 06/16/20 06:00 06/16/20 06:38 Levothyroxine 50 Mcg Tab PO 50 mcg DAILY@0600 [facility] Administration Magnesium Oxide 400 mg 06/16/20 09:00 Magnesium Oxide 400 Mg Tab PO DAILY [facility] Metoclopramide HCl 5 mg 06/16/20 08:00 Metoclopramide 5 Mg Tab PO BID@0800,1700 [facility] Mycophenolate Sodium 720 mg 06/16/20 08:[address] 180 Mg Tablet.Dr PO BID@0800,1700 [facility] Naloxone HCl 0.2 mg 06/15/20 14:02 Naloxone 0.4 Mg/Ml 1 Ml Vial IV Q2M PRN Opioid Reversal Ondansetron HCl 4 mg 06/15/20 14:02 06/16/20 05:09 Ondansetron 4 Mg/2 Ml Vial IVP 4 mg Q8HR PRN Administration Nausea And Vomiting Pantoprazole Sodium 40 mg 06/16/20 09:00 Pantoprazole 40 Mg/10 Ml Vial IV DAILY [facility] Sertraline HCl 100 mg 06/16/20 21:00 Sertraline 100 Mg Tab PO HS@2100 [facility] Sodium Bicarbonate 650 mg 06/16/20 09:00 Sodium Bicarbonate Tab 650 Mg Tab PO BID [facility] Tacrolimus 1 mg 06/16/20 08:00 Tacrolimus 1 Mg Cap PO BID@0800,1700 [facility] Intake and Output 06/15/20 06/16/20 06/16/20 22:59 06:59 14:59 Output Total 700 150 Balance -700 -150 Output: Urine 700 150 Other: Voiding Method Self-Catheterization # Voids 1 Weight 63.957 kg 66.2 kg 06/15/20 12:04 06/15/20 12:04
[2020-06-16 17:00] LABS: Glucose,Whole Blood 260 mg/dL (75-99)
[2020-06-16 20:16] LABS: Glucose,Whole Blood 245 mg/dL (75-99)
[2020-06-16] MEDS: ATORVASTATIN 80 MG TAB PO SCH (21:21)
[2020-06-16] MEDS: SERTRALINE 100 MG TAB PO SCH (21:21)
[2020-06-16] MEDS ORDERED: hydrALAZINE HCL 50 MG TAB PO STA (22:29)
--- NOTE | 2020-06-16 22:35 | P.PN ---
Anusha hodge is a pleasant 65 years old male with multiple medical problems i. 2 months ago he was in the hospital for hypertensive encephalopathy ncluding stage IV CKD, dementia, CVA/TIA, diabetes mellitus, GERD, GI bleed, hyperlipidemia, hypertension Presents because of nausea vomiting and diarrhea for 2 days. he has been vomiting frequently every two hours at times, now he has more nausea, diarrhea developed this morning , he vomits every things puts in his mouth he has very mild abdominal pain and tenderness around umbilacus he denies chest pain or dyspnea or coughing Last time he was in the hospital he was discharged on hydralazine 50 mg 3 times a day Evelyn Coreg 6.25 mg, Norvasc 10 mg. Also he had Levemir 10 units daily and 6 units at bedtime On admission he is hypertensive 212/102 because he wasn't able to take his blood pressure medication. unremarkable cbc, inr however creatinine is 2.95 which is slightly elevated above baseline. magnesium is 1.5 on the low side, liver enzymes elevated, troponin 0.06 KUB showing nonobstructive bowel gas pattern EKG showing normal sinus rhythm at [address]-T changes. As per previous note patient has DO NOT RESUSCITATE order In the emergency room patient was started on Pepcid 20 mg IV once, labetalol 20 mg IV once, Reglan 10 mg once and 500 mL of normal saline 06/16/2020 Patient is awake and alert, his nausea vomiting and diarrhea resolved today, he has normal bowel movement this morning. His blood pressure still 180/90, his hydralazine increased today Urine culture is growing nonhemolytic streptococcus, urine analysis on admission is mildly abnormal. UTI is suspected in view of his nausea vomiting. Started on ceftriaxone Nephrology and cardiology on the case Echocardiogram and final results of urine culture are pending Hydralazine 50 mg 3 times a day increased 200 mg 3 times a day, continue with Coreg 6.25 mg and Norvasc 10 mg. Also he is on normal saline 75 mL/h Objective - Vital Signs Vital signs: Vital Signs Temp 97.7 F 06/16/20 08:00 Pulse 93 06/16/20 12:00 Resp 16 06/16/20 12:00 BP 191/98 06/16/20 12:00 Pulse Ox 95 06/16/20 12:00 Intake & Output 06/15/20 06/16/2021 18:59 06:59 18:59 Intake Total 0 Output Total 850 Balance -850 0 Weight 63.957 kg 66.2 kg Intake: Oral 0 Output: Urine 850 Other: Voiding Method Self-Catheterization Self-Catheterization # Voids 1 - Exam GENERAL: The patient is alert and oriented x3, not in any acute distress. Well developed, well nourished. HEENT: Pupils are round and equally reacting to light. EOMI. No scleral icterus. No conjunctival pallor. Normocephalic, atraumatic. No pharyngeal erythema. No thyromegaly. CARDIOVASCULAR: S1 and S2 present. No murmurs, rubs, or gallops. PULMONARY: Chest is clear to auscultation, no wheezing or crackles. ABDOMEN: Soft, nontender, nondistended, normoactive bowel sounds. No palpable organomegaly. MUSCULOSKELETAL: No joint swelling or deformity. EXTREMITIES: No cyanosis, clubbing, or pedal edema. NEUROLOGICAL: Gross neurological examination did not reveal any focal deficits. SKIN: No rashes. no petechiae. - Labs CBC & Chem 7: 06/16/20 07:26 06/16/20 07:26 Labs: Abnormal Lab Results - Last 24 Hours (Table) 06/15/20 06/15/20 06/15/20 Range/Units 13:20 15:34 19:35 RBC (4.30-5.90) m/uL Hgb (13.0-17.5) gm/dL Hct (39.0-53.0) % Lymphocytes # (1.0-4.8) k/uL BUN (9-20) mg/dL Creatinine (0.66-1.25) mg/dL Glucose (74-99) mg/dL POC Glucose (mg/dL) (75-99) mg/dL Calcium (8.4-10.2) mg/dL Magnesium (1.6-2.3) mg/dL Troponin I 0.056 H* 0.054 H* (0.000-0.034) ng/mL Urine Protein 3+ H (Negative) Urine Glucose (UA) 3+ H (Negative) Urine Blood Small H (Negative) Ur Leukocyte Esterase Small H (Negative) Urine WBC 29 H (0-5) /hpf 06/16/20 06/16/20 06/16/20 Range/Units 00:57 06:30 07:26 RBC 3.57 L (4.30-5.90) m/uL Hgb 10.7 L (13.0-17.5) gm/dL Hct 32.1 L (39.0-53.0) % Lymphocytes # 0.9 L (1.0-4.8) k/uL BUN (9-20) mg/dL Creatinine (0.66-1.25) mg/dL Glucose (74-99) mg/dL POC Glucose (mg/dL) 461 H 229 H (75-99) mg/dL Calcium (8.4-10.2) mg/dL Magnesium (1.6-2.3) mg/dL Troponin I (0.000-0.034) ng/mL Urine Protein (Negative) Urine Glucose (UA) (Negative) Urine Blood (Negative) Ur Leukocyte Esterase (Negative) Urine WBC (0-5) /hpf 06/16/20 06/16/20 Range/Units 07:26 11:52 RBC (4.30-5.90) m/uL Hgb (13.0-17.5) gm/dL Hct (39.0-53.0) % Lymphocytes # (1.0-4.8) k/uL BUN 39 H (9-20) mg/dL Creatinine 2.77 H (0.66-1.25) mg/dL Glucose 201 H (74-99) mg/dL POC Glucose (mg/dL) 151 H (75-99) mg/dL Calcium 7.7 L (8.4-10.2) mg/dL Magnesium 1.4 L (1.6-2.3) mg/dL Troponin I (0.000-0.034) ng/mL Urine Protein (Negative) Urine Glucose (UA) (Negative) Urine Blood (Negative) Ur Leukocyte Esterase (Negative) Urine WBC (0-5) /hpf Microbiology - Last 24 Hours (Table) 06/15/20 13:20 Urine Culture - Preliminary Urine,Clean Catch Assessment and Plan Assessment: Clinical picture of acute gastroenteritis, resolved Possible urinary tract infection Hypertension with urgency due to nonadherence to medication and due to his illness Elevated troponin, Patient has chronically elevated troponin, mostly secondary to his renal disease stage IV CKD, secondary to diabetic nephropathy. 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 Plan: This is a pleasant 65 years old male who presents with hypertensive urgency with nausea vomiting and diarrhea. Elevated troponin. Continue gentle hydration, cardiology consult. Monitor blood pressure continue with hydralazine and decrease the dose to 100 mg tid. Patient and family wanted to see chalk tester follow-up urine culture results Labs and medication were reviewed.. Continue same treatment. Continue with symptomatic treatment. Resume home medication. Monitor lytes and vitals. DVT and GI prophylaxis. Further recommendations depends on the clinical course of the patient DVT prophylaxis: Subcutaneous heparin GI Prophylaxis: Pepcid PT/OT: Pending Prognosis is guarded
[2020-06-17 06:31] LABS: Glucose,Whole Blood 359 mg/dL (75-99)
[2020-06-17] MEDS: carvediloL 6.25 MG TAB PO SCH ×2 (06:36→17:05)
[2020-06-17] MEDS: LEVOTHYROXINE 50 MCG TAB PO SCH (06:36)
[2020-06-17] MEDS: INSULIN ASPART (NovoLOG) 100 UNIT/ML VIAL SQ SCH ×4 (06:37→20:14)
[2020-06-17] MEDS: SODIUM CHLORIDE 0.9% 1,000 ML IV SCH ×2 (06:56→20:14)
[2020-06-17] MEDS ORDERED: IOPAMIDOL CONTRAST (ORAL USE) VIAL PO PRN ×2 (07:26)
--- NOTE | 2020-06-17 07:56 | ECHOF ---
Referral Reason:elevated troponin MEASUREMENTS -------- HEIGHT: 175.3 cm WEIGHT: 65.8 kg BP: 158/81 RVIDd: 2.9 cm (< 3.3) IVSd: 1.8 cm (0.6 - 1.1) LVIDd: 4.4 cm (3.9 - 5.3) LVPWd: 2.0 cm (0.6 - 1.1) IVSs: 2.1 cm LVIDs: 3.2 cm LVPWs: 2.5 cm LA Diam: 4.0 cm (2.7 - 3.8) LAESV Index (A-L): 67.05 ml/m Ao Diam: 2.2 cm (2.0 - 3.7) AV Cusp: 1.7 cm (1.5 - 2.6) MV EXCURSION: 21.441 mm (> 18.000) MV EF SLOPE: 53 mm/s (70 - 150) EPSS: 0.6 cm MV E Jarret: 1.21 m/s MV DecT: 221 ms MV A Jarret: 1.26 m/s MV E/A Ratio: 0.96 RAP: 20.00 mmHg RVSP: 56.81 mmHg FINDINGS -------- Sinus rhythm. This was a technically good study. The left ventricular size is normal. There is severe concentric left ventricular hypertrophy. Ove rall left ventricular systolic function is normal with, an EF between 55 - 60 %. Restrictive LV fi lling pattern, consistent with elevated LA pressure 18.45. The right ventricle is normal in size. LA is severely dilated >40 ml/m2 The right atrial size is normal. Interatrial and interventricular septum intact. Aortic valve is trileaflet and is mildly thickened. There is no evidence of aortic regurgitation. There is no evidence of aortic stenosis. The mitral valve leaflets are mildly thickened. Moderate mitral regurgitation is present. [id number] tricuspid regurgitation present. There is moderate pulmonary hypertension. The r ight ventricular systolic pressure, as measured by Doppler, is 56.81mmHg. There is no pulmonic regurgitation present. The aortic root size is normal. The inferior vena cava is dilated with poor inspiratory collapse which is consistent with estimated r ight atrial pressure of 20 mmHg. There is no pericardial effusion. CONCLUSIONS -------- 1. The left ventricular size is normal. 2. There is severe concentric left ventricular hypertrophy. 3. Overall left ventricular systolic function is normal with, an EF between 55 - 60 %. 4. Restrictive LV filling pattern, consistent with elevated LA pressure 18.45. 5. LA is severely dilated >40 ml/m2 6. Aortic valve is trileaflet and is mildly thickened. 7. The mitral valve leaflets are mildly thickened. 8. Moderate mitral regurgitation is present. 9. [id number] tricuspid regurgitation present. 10. There is moderate pulmonary hypertension. 11. The inferior vena cava is dilated with poor inspiratory collapse which is consistent with estimat ed right atrial pressure of 20 mmHg. 12. There is no pericardial effusion. [employer]: Zuleika Chaidez RDCS
[2020-06-17] MEDS: MYCOPHENOLATE SODIUM DR 180 MG TABLET.DR PO SCH ×2 (08:35→17:06)
[2020-06-17] MEDS: SODIUM BICARBONATE TAB 650 MG TAB PO SCH ×2 (08:36→20:14)
[2020-06-17] MEDS: TACROLIMUS 1 MG CAP PO SCH ×2 (08:36→17:05)
[2020-06-17] MEDS: amLODIPine 10 MG TAB PO SCH (08:37)
[2020-06-17] MEDS: CHOLECALCIFEROL 25 MCG (1000 IU) TABLET PO SCH (08:37)
[2020-06-17] MEDS: PANTOPRAZOLE 40 MG TABLET PO SCH (08:37)
[2020-06-17] MEDS: METOCLOPRAMIDE 5 MG TAB PO SCH ×2 (08:38→17:05)
[2020-06-17] MEDS: hydrALAZINE HCL 50 MG TAB PO SCH ×3 (08:38→17:05)
[2020-06-17] MEDS: CLOPIDOGREL 75 MG TAB PO SCH (08:39)
[2020-06-17] MEDS: MAGNESIUM OXIDE 400 MG TAB PO SCH (08:39)
--- NOTE | 2020-06-17 09:05 | P.PN ---
Anusha hodge is a pleasant 65 years old male with multiple medical problems i. 2 months ago he was in the hospital for hypertensive encephalopathy ncluding stage IV CKD, dementia, CVA/TIA, diabetes mellitus, GERD, GI bleed, hyperlipidemia, hypertension Presents because of nausea vomiting and diarrhea for 2 days. he has been vomiting frequently every two hours at times, now he has more nausea, diarrhea developed this morning , he vomits every things puts in his mouth he has very mild abdominal pain and tenderness around umbilacus he denies chest pain or dyspnea or coughing Last time he was in the hospital he was discharged on hydralazine 50 mg 3 times a day Evelyn Coreg 6.25 mg, Norvasc 10 mg. Also he had Levemir 10 units daily and 6 units at bedtime On admission he is hypertensive 212/102 because he wasn't able to take his blood pressure medication. unremarkable cbc, inr however creatinine is 2.95 which is slightly elevated above baseline. magnesium is 1.5 on the low side, liver enzymes elevated, troponin 0.06 KUB showing nonobstructive bowel gas pattern EKG showing normal sinus rhythm at [address]-T changes. As per previous note patient has DO NOT RESUSCITATE order In the emergency room patient was started on Pepcid 20 mg IV once, labetalol 20 mg IV once, Reglan 10 mg once and 500 mL of normal saline 06/16/2020 Patient is awake and alert, his nausea vomiting and diarrhea resolved today, he has normal bowel movement this morning. His blood pressure still 180/90, his hydralazine increased today Urine culture is growing nonhemolytic streptococcus, urine analysis on admission is mildly abnormal. UTI is suspected in view of his nausea vomiting. Started on ceftriaxone Nephrology and cardiology on the case Echocardiogram and final results of urine culture are pending Hydralazine 50 mg 3 times a day increased 200 mg 3 times a day, continue with Coreg 6.25 mg and Norvasc 10 mg. Also he is on normal saline 75 mL/h 06/17/2020 patient is awake and alert, he denies chest pain or dyspnea or headache or weak ness. However he is complaining of from vomiting once this morning and see times yesterday, also he is complaining of from some pain and tenderness in his abdomen, just left to the umbilicus however her abdomen looks soft No rebound tenderness. Labs from today are pending however his urine culture is growing nonhemolytic streptococcus so final results are pending. Patient remains on normal saline 75 mL/h and ceftriaxone Hydralazine was increased to 50 of 200 mg 3 times a day, continue with Coreg and Norvasc, IV hydralazine when necessary for uncontrolled blood pressure CT of the abdomen and pelvis with oral contrast only, no IV contrast was ordered. Discussed with the bedside nurse and social worker health services F Review of systems CONSTITUTIONAL: No fever, no malaise, no fatigue. HEENT: No recent visual problems or hearing problems. Denied any sore throat. CARDIOVASCULAR: No orthopnea, PND, no palpitations, no syncope. PULMONARY: No shortness of breath, no cough, no hemoptysis. GASTROINTESTINAL: No diarrhea, Normoactive bowel sounds. NEUROLOGICAL: No headaches, no weakness, no numbness. Active Medications Generic Name Dose Route Start Last Admin Trade Name Freq PRN Reason Stop Dose Admin Amlodipine Besylate 10 mg 06/16/20 09:00 06/17/20 08:37 Amlodipine 10 Mg Tab PO 10 mg DAILY [facility] Administration Atorvastatin Calcium 80 mg 06/16/20 21:00 06/16/20 21:21 Atorvastatin 80 Mg Tab PO 80 mg HS@2100 [facility] Administration Carvedilol 6.25 mg 06/15/20 17:30 06/17/20 06:36 Carvedilol 6.25 Mg Tab PO 6.25 mg BID-W/MEALS [facility] Administration Cholecalciferol 50 mcg 06/16/20 09:00 06/17/20 08:37 Cholecalciferol 25 Mcg (1000 Iu) Tablet PO 50 mcg DAILY [facility] Administration Clopidogrel Bisulfate 75 mg 06/16/20 08:00 06/17/20 08:39 Clopidogrel 75 Mg Tab PO 75 mg DAILY@0800 [facility] Administration Hydralazine HCl 10 mg 06/15/20 14:05 06/15/20 21:05 Hydralazine Hcl 20 Mg/Ml 1 Ml Vial IVP 10 mg Q4HR PRN Administration Blood Pressure - High Hydralazine HCl 100 mg 06/17/20 08:00 06/17/20 08:38 Hydralazine Hcl 50 Mg Tab PO 100 mg TID@0800,1200,1700 [facility] Administration Sodium Chloride 1,000 mls @ 75 mls/hr 06/15/20 14:15 06/17/20 06:56 Saline 0.9% IV 75 mls/hr .[id number] [facility] Administration Ceftriaxone Sodium 1 gm/ 50 mls @ 100 mls/hr 06/16/20 22:45 06/16/20 22:58 Sodium Chloride IVPB 100 mls/hr Q24HR [facility] Administration Insulin Aspart 0 unit 06/16/20 01:10 06/17/20 06:37 Insulin Aspart (Novolog) 100 Unit/Ml Vial SQ 6 unit ACHS [facility] Administration Protocol Iopamidol 30 ml 06/17/20 07:26 Iopamidol Contrast (Oral Use) Vial PO 06/18/20 07:[address] Scan Levothyroxine Sodium 50 mcg 06/16/20 06:00 06/17/20 06:36 Levothyroxine 50 Mcg Tab PO 50 mcg DAILY@0600 [facility] Administration Magnesium Oxide 400 mg 06/16/20 09:00 06/17/20 08:39 Magnesium Oxide 400 Mg Tab PO 400 mg DAILY [facility] Administration Metoclopramide HCl 5 mg 06/16/20 08:00 06/17/20 08:38 Metoclopramide 5 Mg Tab PO 5 mg BID@0800,1700 [facility] Administration Miscellaneous Information 1 each 06/16/20 14:24 Magnesium Replacement Protocol 1 Each Misc MISCELLANE DAILY PRN Per Protocol Protocol Mycophenolate Sodium 720 mg 06/16/20 08:00 06/17/20 08:[address] 180 Mg Tablet.Dr PO 720 mg BID@0800,1700 [facility] Administration Naloxone HCl 0.2 mg 06/15/20 14:02 Naloxone 0.4 Mg/Ml 1 Ml Vial IV Q2M PRN Opioid Reversal Ondansetron HCl 4 mg 06/15/20 14:02 06/16/20 05:09 Ondansetron 4 Mg/2 Ml Vial IVP 4 mg Q8HR PRN Administration Nausea And Vomiting Pantoprazole Sodium 40 mg 06/17/20 09:00 06/17/20 08:37 Pantoprazole 40 Mg Tablet PO 40 mg DAILY [facility] Administration Sertraline HCl 100 mg 06/16/20 21:00 06/16/20 21:21 Sertraline 100 Mg Tab PO 100 mg HS@2100 [facility] Administration Sodium Bicarbonate 650 mg 06/16/20 09:00 06/17/20 08:36 Sodium Bicarbonate Tab 650 Mg Tab PO 650 mg BID [facility] Administration Tacrolimus 1 mg 06/16/20 08:00 06/17/20 08:36 Tacrolimus 1 Mg Cap PO 1 mg BID@0800,1700 [facility] Administration Objective - Vital Signs Vital signs: Vital Signs Temp 98.1 F 06/17/20 08:00 Pulse 88 06/17/20 08:00 Resp 20 06/17/20 08:00 BP 168/81 06/17/20 08:00 Pulse Ox 97 06/17/20 08:00 Intake & Output 06/16/20 06/17/20 06/17/20 18:59 06:59 18:59 Intake Total 1496 240 Output Total 350 Balance 1496 -110 Weight 83 kg Intake: Intake, IV Titration 800 Amount Magnesium Sulfate-D5w Pmx 200 1 gm In Dextrose/Water 1 100ml.bag @ 100 mls/hr IVPB Q1H [facility] Rx#: [id number] Sodium Chloride 0.9% 1, 600 000 ml @ 75 mls/hr IV . [id number] [facility] Rx#:[id number] Oral 696 240 Output: Urine 350 Other: Voiding Method Self-Catheterization Self-Catheterization - Exam GENERAL: The patient is alert and oriented x3, not in any acute distress. Well developed, well nourished. HEENT: Pupils are round and equally reacting to light. EOMI. No scleral icterus. No conjunctival pallor. Normocephalic, atraumatic. No pharyngeal erythema. No thyromegaly. CARDIOVASCULAR: S1 and S2 present. No murmurs, rubs, or gallops. PULMONARY: Chest is clear to auscultation, no wheezing or crackles. -ABDOMEN: Soft, mild abdominal tenderness left to the umbilicus, no guarding or rebound tenderness, nondistended, normoactive bowel sounds. No palpable organomegaly. MUSCULOSKELETAL: No joint swelling or deformity. EXTREMITIES: No cyanosis, clubbing, or pedal edema. NEUROLOGICAL: Gross neurological examination did not reveal any focal deficits. SKIN: No rashes. no petechiae. - Labs CBC & Chem 7: 06/16/20 07:26 06/16/20 07:26 Labs: Abnormal Lab Results - Last 24 Hours (Table) 06/16/20 06/16/20 06/16/20 Range/Units 11:52 16:57 20:13 POC Glucose (mg/dL) 151 H 260 H 245 H (75-99) mg/dL 06/17/20 Range/Units 06:28 POC Glucose (mg/dL) 359 H (75-99) mg/dL Microbiology - Last 24 Hours (Table) 06/15/20 13:20 Urine Culture - Preliminary Urine,Clean Catch Non Hemolytic Strep Assessment and Plan Assessment: Clinical picture of acute gastroenteritis, with some abdominal pain and tenderness. Possible urinary tract infection Hypertension with urgency due to nonadherence to medication and due to his illness Elevated troponin, Patient has chronically elevated troponin, mostly secondary to his renal disease stage IV CKD, secondary to diabetic nephropathy. 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 Plan: This is a pleasant 65 years old male who presents with hypertensive urgency with nausea vomiting and diarrhea. Elevated troponin. Continue gentle hydration, cardiology consult. Monitor blood pressure continue with hydralazine and decrease the dose to 100 mg tid. Patient and family wanted to see professor of literacy follow-up urine culture results Check CT of the abdomen and pelvis with oral contrast only Labs and medication were reviewed.. Continue same treatment. Continue with symptomatic treatment. Resume home medication. Monitor lytes and vitals. DVT and GI prophylaxis. Further recommendations depends on the clinical course of the patient DVT prophylaxis: Subcutaneous heparin GI Prophylaxis: Pepcid PT/OT: Pending Prognosis is guarded
[2020-06-17 10:32] LABS: Calcium 8.2 mg/dL (8.4-10.2); Magnesium 1.9 mg/dL (1.6-2.3); Potassium 4.2 mmol/L (3.5-5.1)
--- NOTE | 2020-06-17 11:09 | CT ---
EXAMINATION TYPE: CT abdomen pelvis wo con DATE OF EXAM: 06/17/2020 HISTORY: Abdominal pain with nausea and vomiting, tenderness around umbilicus. CT DLP: 485.8 mGycm. Automated Exposure Control for Dose Reduction was Utilized. TECHNIQUE: CT scan of the abdomen and pelvis is performed with oral but without IV contrast. COMPARISON: Prior CT August 17, 2019 FINDINGS: Within the limitations of a non-contrast study, the following observations are made. LUNG BASES: Coronary artery calcification and/or more likely stents redemonstrated. There are multipl e tiny bilateral pleural effusions partially imaged slightly more prominent from prior study. New mil d interstitial edema in the bases noted. LIVER/GB: No suspicious new abnormality. PANCREAS: No significant abnormality is seen. SPLEEN: No significant abnormality is seen. ADRENALS: No significant abnormality is seen. KIDNEYS: Marked cortical thinning in both kidneys with small vessel central arterial vascular calcifi cation consistent with significant chronic medical renal disease redemonstrated. Bladder shows mild t o moderate distention with mild to moderate wall thickening greatest superiorly on current study. The re was prominent distention and slightly less prominent wall thickening on prior study. Correlate cli nically. There is right pelvic renal transplant with right-sided hydronephrosis redemonstrated. BOWEL: Oral contrast reaches level of the right colon. No suspicious small or large bowel dilatation. GENITAL ORGANS: Prostate gland does not appear abnormally enlarged. Scattered bilateral pelvic phlebo liths. LYMPH NODES: No greater than 1cm abdominal or pelvic lymph nodes are appreciated. OSSEOUS STRUCTURES: No significant abnormality is seen. OTHER: Moderate to severe calcification of aorta extends into branch vessels, severe small vessel art erial vascular calcification correlating with history of long-standing chronic medical renal disease. Mild to moderate diffuse soft tissue subcutaneous edema and/or anasarca noted. IMPRESSION: No bowel obstruction. No significant new finding identified. Bladder findings should be c orrelated clinically.
[2020-06-17 11:46] LABS: Glucose,Whole Blood 360 mg/dL (75-99)
[2020-06-17] MEDS: cloNIDine HCL 0.1 MG TAB PO SCH (12:28)
--- NOTE | 2020-06-17 13:12 | P.PN ---
Subjective Patient is seen in follow-up for acute kidney injury on chronic kidney disease and renal transplant management. Renal function worse today. Blood sugars on the higher side. Vomiting and diarrhea improved. No bowel obstruction noted on CAT scan done this morning. Vital signs are stable. General: The patient appeared well nourished and normally developed. HEENT: Head exam is unremarkable. Neck is without jugular venous distension. LUNGS: Breath sounds decreased. HEART: Rate and Rhythm are regular. ABDOMEN: Soft, mild generalized tenderness. EXTREMITITES: No edema. Objective - Vital Signs Vital signs: Vital Signs Temp 97.7 F 06/17/20 12:00 Pulse 85 06/17/20 12:00 Resp 18 06/17/20 12:00 BP 187/90 06/17/20 12:00 Pulse Ox 93 L 06/17/20 12:00 Intake & Output 06/16/20 06/17/20 06/17/20 18:59 06:59 18:59 Intake Total 1496 240 240 Output Total 350 Balance 1496 -110 240 Weight 83 kg Intake: Intake, IV Titration 800 Amount Magnesium Sulfate-D5w Pmx 200 1 gm In Dextrose/Water 1 100ml.bag @ 100 mls/hr IVPB Q1H [facility] Rx#: [id number] Sodium Chloride 0.9% 1, 600 000 ml @ 75 mls/hr IV . [id number] [facility] Rx#:[id number] Oral 696 240 240 Output: Urine 350 Other: Voiding Method Self-Catheterization Self-Catheterization Self-Catheterization - Labs CBC & Chem 7: 06/16/20 07:26 06/17/20 09:07 Labs: Abnormal Lab Results - Last 24 Hours (Table) 06/16/20 06/16/20 06/17/20 Range/Units 16:57 20:13 06:28 Sodium (137-145) mmol/L Carbon Dioxide (22-30) mmol/L BUN (9-20) mg/dL Creatinine (0.66-1.25) mg/dL Glucose (74-99) mg/dL POC Glucose (mg/dL) 260 H 245 H 359 H (75-99) mg/dL Calcium (8.4-10.2) mg/dL 06/17/20 06/17/20 Range/Units 09:07 11:44 Sodium 135 L (137-145) mmol/L Carbon Dioxide 20 L (22-30) mmol/L BUN 37 H (9-20) mg/dL Creatinine 3.10 H (0.66-1.25) mg/dL Glucose 283 H (74-99) mg/dL POC Glucose (mg/dL) 360 H (75-99) mg/dL Calcium 8.2 L (8.4-10.2) mg/dL Microbiology - Last 24 Hours (Table) 06/15/20 13:20 Urine Culture - Preliminary Urine,Clean Catch Non Hemolytic Strep Assessment and Plan Plan: Assessment: 1. Status post donor renal allograft from November 2010. 2. Chronic kidney disease stage IV with baseline creatinine in the range of 2- 2.5. Etiology is diabetic kidney disease and long-term CNI use. 3. Hypertensive urgency. Better. 4. Nausea vomiting and diarrhea. Possibly gastroenteritis. Better. No bowel obstruction noted on CAT scan. 5. Diabetes mellitus. 6. Hypomagnesemia from poor intake and GI losses. Improved post replacement. 7. Acute allograft dysfunction secondary to ATN. Creatinine 3.1 today. 8. Metabolic acidosis secondary to acute kidney injury, IV fluids and GI losses. Maintained on oral bicarbonate. Plan: Maintain normal saline. Increase rate to 100 mL an hour. Follow-up Prograf level. Maintain Prograf and Myfortic. Blood sugar control. Spoke to patient and his . Case discussed with patient and his . Patient doesn't wish for any aggressive measures, incl MEDICAL OFFICER if needed. Per , has mentioned that 'wants to and doesn't want to do this anymore'. Will get palliative care consult.
--- NOTE | 2020-06-17 14:06 | P.PN ---
Subjective HISTORY OF PRESENTING ILLNESS This is a pleasant 65-year-old male past medical history significant for coronary artery disease s/p PCI RCA and proximal OM1 in 2016, chronic kidney disease status post renal transplant, type 2 diabetes mellitus, hypertension Patient follows with Dr. De Leon (last seen 02/2019). We are being consulted for elevated troponin. Patient presents to emergency department with complaints of nausea vomiting and diarrhea for 2 days. Also has abdominal pain and tenderness. On admission he is hypertensive 245/224 because he wasn't able to take his blood pressure medication. No chest pain, shortness, palpitations, lightheadedness, dizziness, syncope. Laboratory data reviewed, sodium 137, potassium 3.9, serum creatinine 2.77, BUN 39, magnesium 1.4, troponin.06-->0.05-->0.05 Vital signs blood pressure 158/81, heart rate 75, afebrile, maintaining oxygen saturation is 99% on room air DIAGNOSTICS EKG reveals sinus rhythm, heart rate 89, left axis deviation, T wave inversion in lateral leads. Seen on prior EKG KUB reveals overall nonobstructive bowel gas pattern, extensive vascular calcification including central vascular calcifications and both kidneys are demonstrated Current cardiac medications include carvedilol 6.25 mg twice a day, atorvastatin 80 mg nightly, amlodipine 10 mg daily, Plavix 75 mg daily, hydralazine 50 mg 3 times a day, 06/17/20: Patient seen and examined at bedside, no acute distress. Nausea and vomiting however proved. Patient denies diarrhea. Patient continues to be hypertensive blood pressure 168/81, heart rate 88, afebrile, maintaining oxygen saturations 97% on room air. Renal function has been worsening, serum creatinine 3.10, 2.77 yesterday, sodium 135, potassium 4.2, magnesium 1.9. Patient's hydralazine was increased to 100 mg 3 times a day. PHYSICAL EXAMINATION CONSTITUTIONAL: No apparent distress. HEENT: Head is normocephalic. No JVD. No carotid bruit. CHEST EXAMINATION: Lungs are clear to auscultation. HEART EXAMINATION: Regular rate and rhythm. S1, S2 heard. ABDOMEN: Soft, nontender. Positive bowel sounds. EXTREMITIES: 2+ peripheral pulses, no lower extremity edema and no calf tenderness. NEUROLOGIC EXAMINATION: Patient is awake, alert and oriented x3. ASSESSMENT Hypertensive Urgency, patient not taking home PO medications due to nausea and vomiting, home medications restarted. BP has improved Elevated troponin most likely related to hypertensive urgency History of Coronary artery disease s/p PCI Acute on Chronic Kidney Disease s/p renal transplant in 2010 - SCr 3.1 today Type 2 Diabetes Hypertension Hypomagnesmia- improved with repalcement PLAN Nephrology is following patient, recommendations appreciated. Has been discussed with the patient's the patient may need dialysis, patient states he does not want any aggressive measures. Plan for palliative care to be consulted. Will add clonidine 0.1 mg daily for blood pressure We'll continue Coreg 6.25 mg twice a day, amlodipine 10 mg daily, hydralazine 100 mg 3 times a day Nurse Practitioner note has been reviewed, I agree with a documented findings and plan of care. Patient was seen and examined. Objective - Vital Signs Vital signs: Vital Signs Temp 97.7 F 06/16/20 08:00 Pulse 87 06/16/20 16:00 Resp 16 06/16/20 16:00 BP 180/90 06/16/20 16:00 Pulse Ox 98 06/16/20 16:00 Intake & Output 06/16/20 06/16/20 06/17/20 06:59 18:59 06:59 Intake Total 1496 240 Output Total 850 Balance -850 1496 240 Weight 66.2 kg Intake: Intake, IV Titration 800 Amount Magnesium Sulfate-D5w Pmx 200 1 gm In Dextrose/Water 1 100ml.bag @ 100 mls/hr IVPB Q1H [facility] Rx#: [id number] Sodium Chloride 0.9% 1, 600 000 ml @ 75 mls/hr IV . [id number] [facility] Rx#:[id number] Oral 696 240 Output: Urine 850 Other: Voiding Method Self-Catheterization Self-Catheterization # Voids 1 - Labs CBC & Chem 7: 06/16/20 07:26 06/17/20 09:07 Labs: Abnormal Lab Results - Last 24 Hours (Table) 06/15/20 06/16/20 06/16/20 Range/Units 19:35 00:57 06:30 RBC (4.30-5.90) m/uL Hgb (13.0-17.5) gm/dL Hct (39.0-53.0) % Lymphocytes # (1.0-4.8) k/uL BUN (9-20) mg/dL Creatinine (0.66-1.25) mg/dL Glucose (74-99) mg/dL POC Glucose (mg/dL) 461 H 229 H (75-99) mg/dL Calcium (8.4-10.2) mg/dL Magnesium (1.6-2.3) mg/dL Troponin I 0.054 H* (0.000-0.034) ng/mL 06/16/20 06/16/20 06/16/20 Range/Units 07:26 07:26 11:52 RBC 3.57 L (4.30-5.90) m/uL Hgb 10.7 L (13.0-17.5) gm/dL Hct 32.1 L (39.0-53.0) % Lymphocytes # 0.9 L (1.0-4.8) k/uL BUN 39 H (9-20) mg/dL Creatinine 2.77 H (0.66-1.25) mg/dL Glucose 201 H (74-99) mg/dL POC Glucose (mg/dL) 151 H (75-99) mg/dL Calcium 7.7 L (8.4-10.2) mg/dL Magnesium 1.4 L (1.6-2.3) mg/dL Troponin I (0.000-0.034) ng/mL 06/16/20 Range/Units 16:57 RBC (4.30-5.90) m/uL Hgb (13.0-17.5) gm/dL Hct (39.0-53.0) % Lymphocytes # (1.0-4.8) k/uL BUN (9-20) mg/dL Creatinine (0.66-1.25) mg/dL Glucose (74-99) mg/dL POC Glucose (mg/dL) 260 H (75-99) mg/dL Calcium (8.4-10.2) mg/dL Magnesium (1.6-2.3) mg/dL Troponin I (0.000-0.034) ng/mL Microbiology - Last 24 Hours (Table) 06/15/20 13:20 Urine Culture - Preliminary Urine,Clean Catch Non Hemolytic Strep
[2020-06-17 16:58] LABS: Glucose,Whole Blood 288 mg/dL (75-99)
[2020-06-17 17:29] LABS: Hemoglobin A1C 9.2 % (4.0-6.0)
[2020-06-17 20:14] LABS: Glucose,Whole Blood 112 mg/dL (75-99)
[2020-06-17] MEDS: SERTRALINE 100 MG TAB PO SCH (20:14)
[2020-06-17] MEDS: ATORVASTATIN 80 MG TAB PO SCH (20:14)
[2020-06-17] MEDS: ONDANSETRON 4 MG/2 ML VIAL IVP PRN (20:34)
[2020-06-17] MEDS ORDERED: AMOXIC-POT CLAV 875-125MG 1 EACH TAB PO STA (22:24)
[2020-06-18 06:04] LABS: Glucose,Whole Blood 322 mg/dL (75-99)
[2020-06-18] MEDS: LEVOTHYROXINE 50 MCG TAB PO SCH (06:12)
[2020-06-18] MEDS: INSULIN ASPART (NovoLOG) 100 UNIT/ML VIAL SQ SCH ×2 (06:12→12:23)
[2020-06-18] MEDS: CLOPIDOGREL 75 MG TAB PO SCH (06:12)
[2020-06-18] MEDS: carvediloL 6.25 MG TAB PO SCH (06:12)
[2020-06-18] MEDS: SODIUM CHLORIDE 0.9% 1,000 ML IV SCH ×2 (06:14→12:28)
[2020-06-18] MEDS ORDERED: INSULIN DETEMIR (LEVEMIR) 100 UNIT/ML SYR SQ SCH (07:30)
[2020-06-18] MEDS: hydrALAZINE HCL 50 MG TAB PO SCH ×2 (08:27→12:23)
[2020-06-18] MEDS: cloNIDine HCL 0.1 MG TAB PO SCH (08:28)
[2020-06-18] MEDS: SODIUM BICARBONATE TAB 650 MG TAB PO SCH (08:28)
[2020-06-18] MEDS: MYCOPHENOLATE SODIUM DR 180 MG TABLET.DR PO SCH (08:29)
[2020-06-18] MEDS: METOCLOPRAMIDE 5 MG TAB PO SCH (08:29)
[2020-06-18] MEDS: amLODIPine 10 MG TAB PO SCH (08:29)
[2020-06-18] MEDS: CHOLECALCIFEROL 25 MCG (1000 IU) TABLET PO SCH (08:30)
[2020-06-18] MEDS: MAGNESIUM OXIDE 400 MG TAB PO SCH (08:30)
[2020-06-18] MEDS: PANTOPRAZOLE 40 MG TABLET PO SCH (08:30)
[2020-06-18] MEDS: TACROLIMUS 1 MG CAP PO SCH (08:31)
[2020-06-18 08:54] LABS: Calcium 8.2 mg/dL (8.4-10.2); Potassium 4.5 mmol/L (3.5-5.1)
[2020-06-18] MEDS ORDERED: AMOXIC-POT CLAV 875-125MG 1 EACH TAB PO SCH (09:00)
[2020-06-18 12:08] VITALS: BMI 29.0
[2020-06-18 12:16] LABS: Glucose,Whole Blood 229 mg/dL (75-99)
[2020-06-18 13:02] VITALS: BP 125/65; PULSE 70; RESP 16; TEMP 97.6
--- NOTE | 2020-06-18 13:15 | P.PN ---
Subjective Patient is seen in follow-up for acute kidney injury on chronic kidney disease and renal transplant management. Renal function continues to worsen. Creatinine 3.28 today. Oral intake is poor. Vomiting and diarrhea improved. Blood pressure well controlled this afternoon. Vital signs are stable. General: The patient appeared well nourished and normally developed. HEENT: Head exam is unremarkable. Neck is without jugular venous distension. LUNGS: Breath sounds decreased. HEART: Rate and Rhythm are regular. ABDOMEN: Soft, mild generalized tenderness. EXTREMITITES: No edema. Objective - Vital Signs Vital signs: Vital Signs Temp 97.6 F 06/18/20 12:00 Pulse 70 06/18/20 12:00 Resp 16 06/18/20 12:00 BP 125/65 06/18/20 12:00 Pulse Ox 94 L 06/18/20 12:00 Intake & Output 06/17/20 06/18/20 06/18/20 18:59 06:59 18:59 Intake Total 1370 200 240 Balance 1370 200 240 Weight 89 kg 89 kg Intake: Intake, IV Titration 650 200 Amount Sodium Chloride 0.9% 1, 600 200 000 ml @ 100 mls/hr IV . Q10H [facility] Rx#:[id number] cefTRIAXone 1 gm In 50 Sodium Chloride 0.9% 50 ml @ 100 mls/hr IVPB Q24HR [facility] Rx#:[id number] Oral 720 240 Other: Voiding Method Self-Catheterization Self-Catheterization Self-Catheterization # Voids 1 # Bowel Movements 1 - Labs CBC & Chem 7: 06/16/20 07:26 06/18/20 07:45 Labs: Abnormal Lab Results - Last 24 Hours (Table) 06/17/20 06/17/20 06/17/20 Range/Units 09:07 09:07 16:55 Sodium (137-145) mmol/L Carbon Dioxide (22-30) mmol/L BUN (9-20) mg/dL Creatinine (0.66-1.25) mg/dL Glucose (74-99) mg/dL POC Glucose (mg/dL) 288 H (75-99) mg/dL Hemoglobin A1c 9.2 H (4.0-6.0) % Calcium (8.4-10.2) mg/dL Tacrolimus 2.3 L (5.0-20.0) ng/mL 06/17/20 06/18/20 06/18/20 Range/Units 20:12 06:01 07:45 Sodium 135 L (137-145) mmol/L Carbon Dioxide 20 L (22-30) mmol/L BUN 40 H (9-20) mg/dL Creatinine 3.28 H (0.66-1.25) mg/dL Glucose 310 H (74-99) mg/dL POC Glucose (mg/dL) 112 H 322 H (75-99) mg/dL Hemoglobin A1c (4.0-6.0) % Calcium 8.2 L (8.4-10.2) mg/dL Tacrolimus (5.0-20.0) ng/mL 06/18/20 Range/Units 12:12 Sodium (137-145) mmol/L Carbon Dioxide (22-30) mmol/L BUN (9-20) mg/dL Creatinine (0.66-1.25) mg/dL Glucose (74-99) mg/dL POC Glucose (mg/dL) 229 H (75-99) mg/dL Hemoglobin A1c (4.0-6.0) % Calcium (8.4-10.2) mg/dL Tacrolimus (5.0-20.0) ng/mL Microbiology - Last 24 Hours (Table) 06/15/20 13:20 Urine Culture - Final Urine,Clean Catch Enterococcus faecalis Assessment and Plan Plan: Assessment: 1. Status post donor renal allograft from November 2010. 2. Chronic kidney disease stage IV with baseline creatinine in the range of 2- 2.5. Etiology is diabetic kidney disease and long-term CNI use. 3. Hypertensive urgency. Better. 4. Nausea vomiting and diarrhea. Possibly gastroenteritis. Better. No bowel obstruction noted on CAT scan. 5. Diabetes mellitus. 6. Hypomagnesemia from poor intake and GI losses. Improved post replacement. 7. Acute allograft dysfunction secondary to ATN. Creatinine 3.28 today. 8. Metabolic acidosis secondary to acute kidney injury, IV fluids and GI losses. Maintained on oral bicarbonate. Plan: Had a long discussion with patient and his . Patient wishes to go home on hospice.
--- NOTE | 2020-06-18 15:22 | P.PN ---
Subjective HISTORY OF PRESENTING ILLNESS This is a pleasant 65-year-old male past medical history significant for coronary artery disease s/p PCI RCA and proximal OM1 in 2016, chronic kidney disease status post renal transplant, type 2 diabetes mellitus, hypertension Patient follows with Dr. De Leon (last seen 02/2019). We are being consulted for elevated troponin. Patient presents to emergency department with complaints of nausea vomiting and diarrhea for 2 days. Also has abdominal pain and tenderness. On admission he is hypertensive 245/224 because he wasn't able to take his blood pressure medication. No chest pain, shortness, palpitations, lightheadedness, dizziness, syncope. Laboratory data reviewed, sodium 137, potassium 3.9, serum creatinine 2.77, BUN 39, magnesium 1.4, troponin.06-->0.05-->0.05 Vital signs blood pressure 158/81, heart rate 75, afebrile, maintaining oxygen saturation is 99% on room air DIAGNOSTICS EKG reveals sinus rhythm, heart rate 89, left axis deviation, T wave inversion in lateral leads. Seen on prior EKG KUB reveals overall nonobstructive bowel gas pattern, extensive vascular calcification including central vascular calcifications and both kidneys are demonstrated Current cardiac medications include carvedilol 6.25 mg twice a day, atorvastatin 80 mg nightly, amlodipine 10 mg daily, Plavix 75 mg daily, hydralazine 50 mg 3 times a day, 06/18/20: Patient seen and examined at bedside, no acute distress. Nausea and vomiting however proved. Patient denies diarrhea. Patient's BP improved BP 125/65 HR 70, afebrile, 94% on room air. Patient states he does not want hemodialysis. Sodium 135, potassium 4.5, serum creatinine 3.28, magnesium 2.0 PHYSICAL EXAMINATION CONSTITUTIONAL: No apparent distress. HEENT: Head is normocephalic. No JVD. No carotid bruit. CHEST EXAMINATION: Lungs are clear to auscultation. HEART EXAMINATION: Regular rate and rhythm. S1, S2 heard. ABDOMEN: Soft, nontender. Positive bowel sounds. EXTREMITIES: 2+ peripheral pulses, no lower extremity edema and no calf tender ness. NEUROLOGIC EXAMINATION: Patient is awake, alert and oriented x3. ASSESSMENT Hypertensive Urgency, patient not taking home PO medications due to nausea and vomiting, home medications restarted. BP has improved Elevated troponin most likely related to hypertensive urgency History of Coronary artery disease s/p PCI Acute on Chronic Kidney Disease s/p renal transplant in 2010 - SCr 3.1 today Type 2 Diabetes Hypertension Hypomagnesmia- improved with repalcement PLAN Nephrology is following patient, recommendations appreciated. Has been discussed with the patient's the patient may need dialysis, patient states he does not want any aggressive measures. Plan for palliative care to be consulted. Continue current medical therapy per patient's blood pressure No further recommendations from cardiology perspective We will sign off at this time. Please reach out for any further questions or concerns Patient can follow up the office with Dr. De Leon. Nurse Practitioner note has been reviewed, I agree with a documented findings and plan of care. Patient was seen and examined. Objective - Vital Signs Vital signs: Vital Signs Temp 97.6 F 06/18/20 12:00 Pulse 70 06/18/20 12:00 Resp 16 06/18/20 12:00 BP 125/65 06/18/20 12:00 Pulse Ox 94 L 06/18/20 12:00 Intake & Output 06/17/20 06/18/20 06/18/20 18:59 06:59 18:59 Intake Total 1370 200 240 Balance 1370 200 240 Weight 89 kg 89 kg Intake: Intake, IV Titration 650 200 Amount Sodium Chloride 0.9% 1, 600 200 000 ml @ 100 mls/hr IV . Q10H [facility] Rx#:[id number] cefTRIAXone 1 gm In 50 Sodium Chloride 0.9% 50 ml @ 100 mls/hr IVPB Q24HR [facility] Rx#:[id number] Oral 720 240 Other: Voiding Method Self-Catheterization Self-Catheterization Self-Catheterization # Voids 1 # Bowel Movements 1 - Labs CBC & Chem 7: 06/16/20 07:26 06/18/20 07:45 Labs: Abnormal Lab Results - Last 24 Hours (Table) 06/17/20 06/17/20 06/17/20 Range/Units 09:07 09:07 16:55 Sodium (137-145) mmol/L Carbon Dioxide (22-30) mmol/L BUN (9-20) mg/dL Creatinine (0.66-1.25) mg/dL Glucose (74-99) mg/dL POC Glucose (mg/dL) 288 H (75-99) mg/dL Hemoglobin A1c 9.2 H (4.0-6.0) % Calcium (8.4-10.2) mg/dL Tacrolimus 2.3 L (5.0-20.0) ng/mL 06/17/20 06/18/20 06/18/20 Range/Units 20:12 06:01 07:45 Sodium 135 L (137-145) mmol/L Carbon Dioxide 20 L (22-30) mmol/L BUN 40 H (9-20) mg/dL Creatinine 3.28 H (0.66-1.25) mg/dL Glucose 310 H (74-99) mg/dL POC Glucose (mg/dL) 112 H 322 H (75-99) mg/dL Hemoglobin A1c (4.0-6.0) % Calcium 8.2 L (8.4-10.2) mg/dL Tacrolimus (5.0-20.0) ng/mL 06/18/20 Range/Units 12:12 Sodium (137-145) mmol/L Carbon Dioxide (22-30) mmol/L BUN (9-20) mg/dL Creatinine (0.66-1.25) mg/dL Glucose (74-99) mg/dL POC Glucose (mg/dL) 229 H (75-99) mg/dL Hemoglobin A1c (4.0-6.0) % Calcium (8.4-10.2) mg/dL Tacrolimus (5.0-20.0) ng/mL Microbiology - Last 24 Hours (Table) 06/15/20 13:20 Urine Culture - Final Urine,Clean Catch Enterococcus faecalis
== END 2020-06-18 15:43 | disposition home or self-care (01) | DRG 391 ==
LOC: EC 11:42 → 3SCARD 16:27
PROVIDERS: ADMIT Internal Medicine; ATTEND Internal Medicine
DX: K52.9 Noninfective gastroenteritis and colitis, unspecified (principal); N17.0 Acute kidney failure with tubular necrosis; N18.6 End stage renal disease; G45.9 Transient cerebral ischemic attack, unspecified; I12.0 Hypertensive chronic kidney disease with stage 5 chronic kidney disease or end stage renal disease; E87.2 Acidosis; I25.2 Old myocardial infarction; I25.10 Atherosclerotic heart disease of native coronary artery without angina pectoris; K21.9 Gastro-esophageal reflux disease without esophagitis; I16.0 Hypertensive urgency; K31.84 Gastroparesis; E11.22 Type 2 diabetes mellitus with diabetic chronic kidney disease; E11.319 Type 2 diabetes mellitus with unspecified diabetic retinopathy without macular edema; E11.43 Type 2 diabetes mellitus with diabetic autonomic (poly)neuropathy; E03.9 Hypothyroidism, unspecified; F03.90 Unspecified dementia, unspecified severity, without behavioral disturbance, psychotic disturbance, mood disturbance, and anxiety; E83.42 Hypomagnesemia; Z66 Do not resuscitate; E78.5 Hyperlipidemia, unspecified; F32.9 Major depressive disorder, single episode, unspecified; H54.7 Unspecified visual loss; Z79.02 Long term (current) use of antithrombotics/antiplatelets; Z79.4 Long term (current) use of insulin; Z79.82 Long term (current) use of aspirin; Z79.890 Hormone replacement therapy; Z79.899 Other long term (current) drug therapy; Z85.828 Personal history of other malignant neoplasm of skin; Z86.73 Personal history of transient ischemic attack (TIA), and cerebral infarction without residual deficits; Z91.14 Patient's other noncompliance with medication regimen; Z95.5 Presence of coronary angioplasty implant and graft
CPT/HCPCS: 36415; 74018; 74176; 80048; 80053; 80197; 81001; 82009; 82150; 83036; 83605; 83690; 83735; 84484; 85025; 85610; 85730; 87077; 87086; 87186; 87636; 93005; 93306; 96361; 96374; 96375; 99285